=== PATIENT | male | born 1950 | race Caucasian/White ===

== ENCOUNTER → 2016-10-25 | Outpatient (CLI) | payer BC ==
[~2016-10-25] MED LIST: ALBINS INH; ALBINS/ INH; ALBU18002 INH; ALBU1AER9 INH; AMLO-110 PO; AMOX875T PO; AZAT50TA17 PO; BENZ100C7 PO; COLE1TAB4 PO; COLE1TAB5 PO; CYAN100T PO; CZR50 PO; FRS/40 PO; FURO20TA PO; GFNSR600 PO; GUAI1SOL5 PO; HYDR-5688 PO; IMD2 PO; IPRASOL4 INH; LEVO1TAB33 PO; LEVO1TAB35 PO; LEVO88TA PO; LOPE2TAB84 OR; MULT-506 PO; OMEP20CA9 PO; OXGN; PLMIH INH; PRD10 PO; PRD20 PO; PRED10TA PO; PRED50TA PO; SPRIN INH; SYMIN INH; SYMIN160 INH; TIOTCAP INH; TMF75 PO; ZOLP10TA PO
--- NOTE | 2016-10-25 09:36 | DIAGNOSTIC IMAGING REPORT ---
CHEST-PA,LAT AND OBLIQUE VIEWS (4 views) CLINICAL HISTORY: Abnormal chest x-ray COMPARISON STUDY: 07/21/2016 FINDINGS: The chest has an emphysematous configuration. The cardiac and mediastinal contours remain stable. There is no focal pulmonary consolidation. There is no failure. There are no pleural effusions. The previously identified left basilar nodule corresponds to the patient's left nipple. There are minor left basilar atelectatic changes. IMPRESSION: 1. No active disease in the chest. 2. The previously identified 9 mm left basilar opacity corresponds to the patient's left nipple Electronically signed by: Jasmeet Jones M.D. 10/25/2016 9:34 AM Dictated Date/Time: 10/25/2016 9:32 AM
== END | disposition home or self-care (01) ==
LOC: C.RAD1850 09:13
PROVIDERS: ATTEND Internal Medicine Pulmonary Disease
DX: G47.33 Obstructive sleep apnea (adult) (pediatric) (principal)

== ENCOUNTER 2016-12-12 14:30 | Observation (INO) | payer BC ==
[~2016-12-12] VITALS: Ht 185.4 cm; Wt 97.5 kg
[~2016-12-12 14:30] MED LIST changes: -ALBINS/ INH; -ALBU18002 INH; -AMLO-110 PO; -AMOX875T PO; -AZAT50TA17 PO; -BENZ100C7 PO; -COLE1TAB5 PO; -CYAN100T PO; -CZR50 PO; -FRS/40 PO; -FURO20TA PO; -GFNSR600 PO; -GUAI1SOL5 PO; -HYDR-5688 PO; -IMD2 PO; -LEVO1TAB35 PO; -LEVO88TA PO; -MULT-506 PO; -OMEP20CA9 PO; -OXGN; -PLMIH INH; -PRD10 PO; -PRD20 PO; -PRED10TA PO; -SPRIN INH; -SYMIN160 INH; -TMF75 PO; -ZOLP10TA PO
[2016-12-12] MEDS ORDERED: METHYLPREDNISOLONE 125 MG VIAL IV STA (14:44)
[2016-12-12] MEDS ORDERED: SODIUM CHLORIDE 0.9% 1000ML 1,000 ML IV STA ×2 (14:44→15:19)
[2016-12-12] MEDS ORDERED: ALBUT/IPRATROP 3MG/0.5MG NEB 3 ML VIAL INH ONE (14:45)
--- NOTE | 2016-12-12 14:47 | EMERGENCY ROOM VISIT NOTE ---
History Report prepared by Josefa: Olga Juarez Under the Supervision of: Dr. David Malone M.D. First contact with patient: 14:39 Chief Complaint: SHORTNESS OF BREATH Stated Complaint: SOB History of Present Illness The patient is a 66 year old male who presents to the Emergency Room with complaints of worsening shortness of breath over the past two weeks. It is worse with exertion. He notes that he was shoveling the driveway this morning and had to stop a few times to catch his breath, which is unusual for him. He also complains of runny nose and cough. The patient states that he was recently diagnosed with bronchitis. He was seen at the [facility] walk-in [facility] 4 days ago and was put on Levaquin and Prednisone at that time. Since then, his symptoms have continued to worsen. He has been using Spiriva and Symbicort. He had one breathing treatment so far today. He notes that his also currently has bronchitis. Denies loss of consciousness or other complaints. Source of History: patient Onset: 2 weeks ago Position: other (global) Quality: other (short of breath) Timing: worsening Modifying Factors (Worsening): exertion Associated Symptoms: + cough Note: Other symptoms: runny nose Review of Systems See HPI for pertinent positives & negatives. A total of 10 systems reviewed and were otherwise negative. Past Medical & Surgical Medical Problems: (1) Bronchitis (2) Emphysema, unspecified (3) Hypertension (4) Influenza A (5) Pneumonia (6) Pneumonia Family History FH: cancer FH: hypertension Social History Smoking Status: Former Smoker Alcohol Use: none Marital Status: Housing Status: lives with family Occupation Status: retired Current/Historical Medications Scheduled Amlodipine (Norvasc), 5 MG PO DAILY Azathioprine (Imuran), 50 MG PO DAILY Budesonide/Formoterol Fumarate (Symbicort 160-4.5 Mcg/Act), 2 PUFFS INH BID Colestipol Hcl (Colestipol Hcl), 1 GM PO BID Cyanocobalamin (Vitamin B-12), 100 MCG PO DAILY Ipratropium-Albuterol (Duoneb), 3 ML INH QID Levofloxacin (Levaquin), 500 MG PO QPM Levothyroxine Sodium (Synthroid), 88 MCG PO QPM Loperamide HCl (Loperamide HCl), 2 MG PO QAM Multivitamin (Multivitamin), 1 TAB PO DAILY Prednisone (Prednisone), 50 MG PO QPM Tiotropium [place] (Spiriva Handihaler), 1 PUFF INH QAM Zolpidem Tartrate (Ambien), 10 MG PO HS Scheduled PRN Albuterol Sulf (Albuterol Sulfate), 2.5 MG INH Q4H PRN for sob Albuterol Sulfate (Proair Respiclick), 2 PUFFS INH QID PRN for SOB/Wheezing Hydrocodone/Acetaminophen 5MG/325MG ([place] 5MG/325MG), 1 TABLET PO Q4H PRN for Pain Allergies Coded Allergies: No Known Allergies (Unverified , 12/12/16) Physical Exam Vital Signs Date Time Temp Pulse Resp B/P Pulse Ox O2 Delivery O2 Flow Rate FiO2 12/12/16 16:45 83 24 136/74 93 Room Air 12/12/16 15:14 85 16 92 Room Air 12/12/16 15:13 85 12/12/16 15:02 92 Room Air 12/12/16 15:02 86 20 125/74 91 Room Air 12/12/16 14:37 36.9 92 24 154/69 91 Room Air Physical Exam GENERAL: Patient is ill appearing and in mild distress. HEENT: No acute trauma, normocephalic atraumatic, mucous membranes moist, no nasal congestion, no scleral icterus. NECK: No stridor, no adenopathy, no meningismus, trachea is midline. LUNGS: Dyspneic. Diffuse wheezing and crackles all lung [place] with periodic dry cough. HEART: Regular rate and rhythm. No murmurs, rubs, gallops appreciated. ABDOMEN: Soft, nontender, bowel sounds positive, no masses appreciated, no peritonitis. BACK: No midline tenderness, no CVA tenderness EXTREMITIES: Normal motion all extremities, no cyanosis, no edema. NEUROLOGIC: Alert and oriented, no acute motor or sensory deficits, no focal weakness, cranial nerves grossly intact. SKIN: No rash, no jaundice, no diaphoresis. Medical Decision & Procedures ER Provider Diagnostic Interpretation: Radiology results and stated below per my review and radiologist interpretation: CHEST ONE VIEW PORTABLE CLINICAL HISTORY: Chest pain and shortness of breath. COMPARISON STUDY: Chest radiograph October 25, 2016. FINDINGS: Emphysema is noted. There is no pneumothorax or pleural effusion. Cardiac size is normal. There is no evidence of pulmonary edema. No consolidation is identified. IMPRESSION: 1. No acute cardiopulmonary findings. 2. Emphysema. Electronically signed by: Carl Wu M.D. 12/12/2016 3:02 PM Dictated Date/Time: 12/12/2016 3:00 PM Laboratory Results 12/12/16 15:00 Red Blood Count 4.34, Mean Corpuscular Volume 91.9, Mean Corpuscular Hemoglobin 31.8, Mean Corpuscular Hemoglobin Concent 34.6, Mean Platelet Volume 9.7, Neutrophils (%) (Auto) 84.8, Lymphocytes (%) (Auto) 4.7, Monocytes (%) (Auto) 9.4, Eosinophils (%) (Auto) 0.8, Basophils (%) (Auto) 0.1, Neutrophils # (Auto) 8.31, Lymphocytes # (Auto) 0.46, Monocytes # (Auto) 0.92, Eosinophils # (Auto) 0.08, Basophils # (Auto) 0.01 12/12/16 15:00 Test 12/12/16 14:56 12/12/16 15:00 12/12/16 15:03 Influenza Type A Antigen POS for Influ A (NEG) Influenza Type B Antigen Neg for Influ B (NEG) White Blood Count 9.80 K/uL (4.8-10.8) Red Blood Count 4.34 M/uL (4.7-6.1) Hemoglobin 13.8 g/dL (14.0-18.0) Hematocrit 39.9 % (42-52) Mean Corpuscular Volume 91.9 fL (80-100) Mean Corpuscular Hemoglobin 31.8 pg (25-34) Mean Corpuscular Hemoglobin Concent 34.6 g/dl (32-36) Platelet Count 310 K/uL (130-400) Mean Platelet Volume 9.7 fL (7.4-10.4) Neutrophils (%) (Auto) 84.8 % Lymphocytes (%) (Auto) 4.7 % Monocytes (%) (Auto) 9.4 % Eosinophils (%) (Auto) 0.8 % Basophils (%) (Auto) 0.1 % Neutrophils # (Auto) 8.31 K/uL (1.4-6.5) Lymphocytes # (Auto) 0.46 K/uL (1.2-3.4) Monocytes # (Auto) 0.92 K/uL (0.11-0.59) Eosinophils # (Auto) 0.08 K/uL (0-0.5) Basophils # (Auto) 0.01 K/uL (0-0.2) RDW Standard Deviation 49.7 fL (36.4-46.3) RDW Coefficient of Variation 14.7 % (11.5-14.5) Immature Granulocyte % (Auto) 0.2 % Immature Granulocyte # (Auto) 0.02 K/uL (0.00-0.02) Anion Gap 10.0 mmol/L (3-11) Est Creatinine Clear Calc Drug Dose 92.8 ml/min Estimated GFR () 95.1 Estimated GFR (Non- 82.0 BUN/Creatinine Ratio 15.1 (10-20) Calcium Level 8.4 mg/dl (8.5-10.1) Total Creatine Kinase 217 U/L (39-308) Creatine Kinase MB 2.8 ng/ml (0.5-3.6) Creatine Kinase MB Ratio 1.3 (0-3.0) Troponin I < 0.015 ng/ml (0-0.045) Bedside Lactic Acid Venous 2.40 mmol/L (0.90-1.70) Laboratory results as reviewed by me. Medications Administered Medications (Trade) Dose Ordered Sig/Jeffery Route Start Time Stop Time Status Last Admin Dose Admin Sodium Chloride (Nss 1000ml) 1,000 ml @ 999 mls/hr Q1H1M STAT IV 12/12/16 14:44 12/12/16 15:44 DC 12/12/16 15:06 999 MLS/HR Methylprednisolone Sodium Succinate (Solu-Medrol IV) 125 mg NOW STAT IV 12/12/16 14:44 12/12/16 14:45 DC 12/12/16 15:09 125 MG Albuterol/ Ipratropium 12 ml 12 ml ONE ONCE INH 12/12/16 14:45 12/12/16 14:46 DC 12/12/16 15:14 12 ML Sodium Chloride 1,000 ml @ 999 mls/hr Q1H1M STAT IV 12/12/16 15:19 12/12/16 16:19 DC 12/12/16 15:45 999 MLS/HR Doxycycline Hyclate/Dextrose (Vibramycin IV/ D5 100ml) 110 ml @ 50 mls/hr NOW STAT IV 12/12/16 15:27 12/12/16 17:38 12/12/16 15:45 50 MLS/HR Oseltamivir Phosphate (Tamiflu Cap) 75 mg NOW STAT PO 12/12/16 15:54 12/12/16 15:55 DC 12/12/16 16:08 75 MG Potassium Chloride (Klor-Con M10) 20 meq NOW STAT PO 12/12/16 16:08 12/12/16 16:28 DC 12/12/16 16:43 20 MEQ Hydrocodone Bit/ Homatropine Methylb (Hycodan Syrup) 5 ml NOW STAT PO 12/12/16 16:35 12/12/16 16:38 DC 12/12/16 16:44 5 ML ECG Indication: SOB/dyspnea Rate (beats per minute): 76 Rhythm: normal sinus Findings: no acute ischemic change, no ectopy ED Course 1440: The patient was evaluated in room A11. A complete history and physical exam was performed. 1444: Ordered Solu-Medrol 125 mg IV, NSS 1000 ml @ 999 mls/hr IV, DuoNeb 12 ml INH. 1519: Ordered NSS 1000 ml @ 999 mls/hr IV. 1527: Upon reevaluation, the patient states that his breathing is better, although he still has diffuse poor lung sounds. Discussed results and treatment plan with the patient. He verbalized understanding and agreement with the treatment plan. The patient will be evaluated for further management. Ordered Doxycycline Hyclate 100 mg/Dextrose 110 ml @ 50 mls/hr IV. 1540: Dr. Benoit will evaluate the patient for further management. 1554: Ordered Tamiflu Cap 75 mg PO. Medical Decision Differential: Infectious, Reactive Airway Disease, Pneumonia, Pneumothorax, COPD , CHF, ACS, Pulmonary Embolism, MSK, GI, Dissection, amongst other etiologies entertained. Pleasant 66 yr old male with shortness of breath and cough. Quite poor lung exam with decreased Peak flow of 175. Mildly low O2 sats even with sitting still. Shob improved slightly with hour neb but lungs still quite poor. On prednisone for last 4 days (along with Levaquin). No pneumonia on cxr. Lactic acid mildly elevated and I feel this is more hypoxia issue while shoveling snow as opposed to sepsis. Influenza positive. With such poor exam, positive flu, elevated lactic will have hospitalist evaluate. Consults Time Called: 1530 Consulting Physician: Dr. Kaycee Ramirez [facility] [place] Returned Call: 1540 He will evaluate the patient for further management. Impression Primary Impression: Lactic acidosis Additional Impressions: Influenza A Acute bronchitis Failure of outpatient treatment Scribe Attestation The scribe's documentation has been prepared under my direction and personally reviewed by me in its entirety. I confirm that the note above accurately reflects all work, treatment, procedures, and medical decision making performed by me. Departure Information Dispostion Being Evaluated By Hospitalist Referrals Jocelyne Cook M.D. (PCP) Patient Instructions My [facility] Problem Qualifiers Additional Impressions: Acute bronchitis Bronchitis organism: unspecified organism Qualified Codes: J20.9 - Acute bronchitis, unspecified
--- NOTE | 2016-12-12 15:03 | DIAGNOSTIC IMAGING REPORT ---
CHEST ONE VIEW PORTABLE CLINICAL HISTORY: Chest pain and shortness of breath. COMPARISON STUDY: Chest radiograph October 25, 2016. FINDINGS: Emphysema is noted. There is no pneumothorax or pleural effusion. Cardiac size is normal. There is no evidence of pulmonary edema. No consolidation is identified. IMPRESSION: 1. No acute cardiopulmonary findings. 2. Emphysema. Electronically signed by: Carl Wu M.D. 12/12/2016 3:02 PM Dictated Date/Time: 12/12/2016 3:00 PM
[2016-12-12 15:14] VITALS: PULSE 85; O2SAT 92
[2016-12-12 15:19] LABS: BASO % 0.1 %; BASO ABS # 0.01 K/uL (0-0.2); COMPLETE YES; EOS % 0.8 %; HEMATOCRIT 39.9 % (42-52); IG% 0.2 %; LYMPH % 4.7 %; LYMPH ABS # 0.46 K/uL (1.2-3.4); MEAN CELL VOLUME 91.9 fL (80-100); MEAN CORPUSCULAR HEMOGLOBIN 31.8 pg (25-34); MEAN CORPUSCULAR HGB CONC 34.6 g/dl (32-36); MEAN PLATELET VOLUME 9.7 fL (7.4-10.4); MONO % 9.4 %; NEUT % 84.8 %; PLATELET COUNT 310 K/uL (130-400); RED BLOOD COUNT 4.34 M/uL (4.7-6.1)
[2016-12-12] MEDS ORDERED: DOXYCYCLINE IV 100 MG in DEXTROSE 5% 100ML 100 ML IV STA (15:27)
[2016-12-12 15:36] LABS: BLOOD UREA NITROGEN 15 mg/dl (7-18); BUN/CREATININE RATIO 15.1 (10-20); CALCIUM 8.4 mg/dl (8.5-10.1); CARBON DIOXIDE 26 mmol/L (21-32); CHLORIDE 104 mmol/L (98-107); CREATININE 0.96 mg/dl (0.60-1.40); GLUCOSE 103 mg/dl (70-99); POTASSIUM 3.3 mmol/L (3.5-5.1); SODIUM 140 mmol/L (136-145)
[2016-12-12 15:41] LABS: CKMB/CK RATIO 1.3 (0-3.0)
[2016-12-12] MEDS ORDERED: OSELTAMIVIR PHOSPHATE 75 MG CAP PO STA (15:54)
[2016-12-12] MEDS ORDERED: POTASSIUM CHLORIDE 10 MEQ TABCR PO STA (16:08)
[2016-12-12] MEDS ORDERED: ACETAMINOPHEN 325 MG TAB PO PRN (16:15)
--- NOTE | 2016-12-12 16:22 | History and Physical ---
History & Physical Date & Time of Service: Dec 12, 2016 at 16:21 Chief Complaint: SOB Primary Care Physician: Jocelyne Cook M.D. History of Present Illness Source: patient This is a 66 yo M with PMHx of emphysema, Crohn's disease, hypertension, hypothyroidism, who presents with worsening shortness of breath and cough over the last 2 weeks. The patient notes that while shoveling snow this morning he became acutely short of breath, he had to stop several times to catch his breath where he normally doesn't need to. The patient does not require supplemental oxygen at baseline. He denies any chest pain, palpitation, flutter , lightheadedness or dizziness. The patient notes his has been sick with sinusitis and bronchitis. His son was sick 2 weeks ago with an upper respiratory infection diagnosed with bronchitis and sinusitis as well. The patient was seen in an urgent care center last Sunday . There he was prescribed Levaquin 500 mg once daily for the last 5 days (was given a 10 day course) and also prednisone 50 mg 5 days, has completed 4 doses, but notes that his symptoms have actually worsened. O2 sats were 91% with home pulse ox per patient report. The patient is currently receiving a nebulizer treatment. Here in the ED POC lactic acid is 2.4, potassium 3.3, chest x-ray completed showing emphysema, no acute findings indicative of pneumonia. Serology is positive for influenza A Past Medical/Surgical History Medical Problems: (1) Bronchitis Status: Resolved (2) Emphysema, unspecified Status: Resolved (3) Hypertension Status: Chronic (4) Pneumonia Status: Resolved Family History FH: cancer FH: hypertension Social History Smoking Status: Former Smoker ([id number]) Smokeless Tobacco Use: No Drug Use: none Marital Status: Housing status: lives with family Occupational Status: retired Multi-Drug Resistant Organisms History of MDRO: No Allergies Coded Allergies: No Known Allergies (Unverified , 12/12/16) Home Medications Scheduled Amlodipine (Norvasc), 5 MG PO DAILY Azathioprine (Imuran), 50 MG PO DAILY Budesonide/Formoterol Fumarate (Symbicort 160-4.5 Mcg/Act), 2 PUFFS INH BID Colestipol Hcl (Colestipol Hcl), 1 GM PO BID Cyanocobalamin (Vitamin B-12), 100 MCG PO DAILY Ipratropium-Albuterol (Duoneb), 3 ML INH QID Levofloxacin (Levaquin), 500 MG PO QPM Levothyroxine Sodium (Synthroid), 88 MCG PO QPM Loperamide HCl (Loperamide HCl), 2 MG PO QAM Multivitamin (Multivitamin), 1 TAB PO DAILY Prednisone (Prednisone), 50 MG PO QPM Tiotropium [place] (Spiriva Handihaler), 1 PUFF INH QAM Zolpidem Tartrate (Ambien), 10 MG PO HS Scheduled PRN Albuterol Sulf (Albuterol Sulfate), 2.5 MG INH Q4H PRN for sob Albuterol Sulfate (Proair Respiclick), 2 PUFFS INH QID PRN for SOB/Wheezing Hydrocodone/Acetaminophen 5MG/325MG ([place] 5MG/325MG), 1 TABLET PO Q4H PRN for Pain Review of Systems Constitutional: + fatigue, No chills, No fever, No sweats Eyes: No problem reported ENT: + nasal symptoms, + sore throat, No problem reported Respiratory: + cough (nonproductive, ), + dyspnea on exertion, + shortness of breath, No dyspnea at rest, No sputum, No wheezing Cardiovascular: No chest pain, No edema, No palpitations Abdomen: + problem reported (Crohn's disease), No nausea, No pain, No vomiting Genitourinary - Male: No dysuria Neurologic: No balance problems, No numbness/tingling Integumentary: No itch, No rash Physical Exam Vital Signs Date Time Temp Pulse Resp B/P Pulse Ox O2 Delivery O2 Flow Rate FiO2 12/12/16 15:14 85 16 92 Room Air 12/12/16 15:13 85 12/12/16 15:02 92 Room Air 12/12/16 15:02 86 20 125/74 91 Room Air 12/12/16 14:37 36.9 92 24 154/69 91 Room Air General Appearance: WD/WN, no apparent distress, + pertinent finding (actively getting nebulizer treatment) Head: normocephalic, atraumatic Eyes: PERRL, EOMI ENT: hearing grossly normal, pharynx normal, + pertinent finding (mucous membranes moist) Neck: supple, no JVD Respiratory/Chest: chest non-tender, no accessory muscle use, + pertinent finding (coarse breath sounds throughout, + rhales, + cough nonproductive. ) Cardiovascular: regular rate, rhythm, no murmur, normal peripheral pulses Abdomen/GI: normal bowel sounds, non tender, soft, no organomegaly Back: normal inspection Extremities/Musculoskelatal: no calf tenderness, no pedal edema, normal range of motion Neurologic/Psych: alert, normal mood/affect, oriented x 3 Skin: normal color, warm/dry Diagnostics Laboratory Results Results Past 24 Hours Test 12/12/16 14:56 12/12/16 15:00 12/12/16 15:03 Range/Units Influenza Type A Antigen POS for Influ A NEG Influenza Type B Antigen Neg for Influ B NEG White Blood Count 9.80 4.8-10.8 K/uL Red Blood Count 4.34 4.7-6.1 M/uL Hemoglobin 13.8 14.0-18.0 g/dL Hematocrit 39.9 42-52 % Mean Corpuscular Volume 91.9 80-100 fL Mean Corpuscular Hemoglobin 31.8 25-34 pg Mean Corpuscular Hemoglobin Concent 34.6 32-36 g/dl Platelet Count 310 130-400 K/uL Mean Platelet Volume 9.7 7.4-10.4 fL Neutrophils (%) (Auto) 84.8 % Lymphocytes (%) (Auto) 4.7 % Monocytes (%) (Auto) 9.4 % Eosinophils (%) (Auto) 0.8 % Basophils (%) (Auto) 0.1 % Neutrophils # (Auto) 8.31 1.4-6.5 K/uL Lymphocytes # (Auto) 0.46 1.2-3.4 K/uL Monocytes # (Auto) 0.92 0.11-0.59 K/uL Eosinophils # (Auto) 0.08 0-0.5 K/uL Basophils # (Auto) 0.01 0-0.2 K/uL RDW Standard Deviation 49.7 36.4-46.3 fL RDW Coefficient of Variation 14.7 11.5-14.5 % Immature Granulocyte % (Auto) 0.2 % Immature Granulocyte # (Auto) 0.02 0.00-0.02 K/uL Sodium Level 140 136-145 mmol/L Potassium Level 3.3 3.5-5.1 mmol/L Chloride Level 104 98-107 mmol/L Carbon Dioxide Level 26 21-32 mmol/L Anion Gap 10.0 3-11 mmol/L Blood Urea Nitrogen 15 7-18 mg/dl Creatinine 0.96 0.60-1.40 mg/dl Est Creatinine Clear Calc Drug Dose 92.8 ml/min Estimated GFR () 95.1 Estimated GFR (Non- 82.0 BUN/Creatinine Ratio 15.1 10-20 Random Glucose 103 70-99 mg/dl Calcium Level 8.4 8.5-10.1 mg/dl Total Creatine Kinase 217 39-308 U/L Creatine Kinase MB 2.8 0.5-3.6 ng/ml Creatine Kinase MB Ratio 1.3 0-3.0 Troponin I < 0.015 0-0.045 ng/ml Bedside Lactic Acid Venous 2.40 0.90-1.70 mmol/L Microbiology Results 12/12/16 Blood Culture, Received Pending 12/12/16 Blood Culture, Received Pending Diagnostic Radiology CHEST ONE VIEW PORTABLE CLINICAL HISTORY: Chest pain and shortness of breath. COMPARISON STUDY: Chest radiograph October 25, 2016. FINDINGS: Emphysema is noted. There is no pneumothorax or pleural effusion. Cardiac size is normal. There is no evidence of pulmonary edema. No consolidation is identified. IMPRESSION: 1. No acute cardiopulmonary findings. 2. Emphysema. Electronically signed by: Carl Wu M.D. 12/12/2016 3:02 PM Dictated Date/Time: 12/12/2016 3:00 PM The status of this report is Signed. EKG Vent. rate 76 BPM OR interval 148 ms QRS duration 90 ms QT/QTc 374/420 ms P-R-T axes 80 [address] wave changes or signs of ischemia Impression Assessment and Plan This is a 66 yo M with PMHx of emphysema, Crohn's disease, hypertension, hypothyroidism, who presents with worsening shortness of breath and cough over the last 2 weeks found to have influenza A. Influenza A - Admit for observation - Patient received 125 mg Solu-Medrol in the ED: Continue supportive treatment with IV Solu-Medrol 40 mg every 8H, start Tamiflu 75 mg BID, duo nebs Q4H and Q2H prn for shortness of breath, Hycodan cough syrup when necessary , encourage oral hydration, and is likely that the patient can be discharged home tomorrow. 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 Level of Care Med/Surg Resuscitation Status FULL RESUSCITATION VTE Prophylaxis VTE Risk Assessment Done? Y/N: Yes Risk Level: Low Given or contraindicated: T.E.Sarah Stockings, SCD's Assessment and Plan Attending Addendum: I have physically seen and examined this patient, have directed their medical care, have supervised the PA's activity, and agree with the H&P as noted above, with the following changes: The patient is awake, well-developed and adequately nourished, alert and oriented 3, normocephalic and atraumatic, lying in bed and in moderate acute distress during harsh paroxysmal cough. HEENT--PERRL, EOMI, mucous membranes and oropharynx dry. Neck--supple, no JVD or bruits, thyroid normal, trachea midline, no adenopathy. Heart--normal S1 and S2, no extra beats, no murmurs, rubs or gallops. Lungs-- diffuse wheezes and rhonchi bilaterally intermittent respiratory distress, no accessory muscle use. Abdomen--normal bowel sounds and soft, nontender and nondistended, no hernias or masses, no organomegaly. Extremities--no cyanosis, clubbing or edema. There are good distal pulses b/l. Dermatologic--normal skin turgor, normal color, warm and dry, no abnormal lymph nodes, no rash. Neurologic--cranial nerves II through XII grossly intact, motor and sensory examination normal. Rheumatologic--normal range of motion, nontender, muscles and joints. Psychiatric--normal affect. Assessment and Plan: Influenza A--patient will be continued on the Tamiflu 75 mg by mouth twice a day for 5 days begun in the emergency department. Acute bronchitis--the patient received Solu-Medrol 125 mg IV in the emergency department, and this will be continued at 40 mg IV every 8 hours, along with nebulizers every 6 hours while awake and every 2 hours when necessary. We will hold Symbicort, Spiriva, levofloxacin by mouth and prednisone. Hypertension--continue amlodipine 5 mg by mouth daily. Hypothyroidism--continue levothyroxine sodium 88 g by mouth daily. Crohn's disease--continue Imuran 50 mg by mouth daily. Insomnia--continue zolpidem tartrate 10 mg by mouth at bedtime. Vitamin B12 deficiency--continue supplement 100 g by mouth daily.
[2016-12-12] MEDS ORDERED: ALBUT/IPRATROP 3MG/0.5MG NEB 3 ML VIAL INH PRN (16:30)
[2016-12-12] MEDS ORDERED: HYDROCODONE/HOMATROPINE SYRUP 5MG/1.5MG 5ML UDP PO STA (16:35)
[2016-12-12] MEDS ORDERED: HYDROCODONE/HOMATROPINE SYRUP 5MG/1.5MG 5ML UDP PO PRN (16:45)
[2016-12-12] MEDS ORDERED: IV FLUIDS COMPLETED PRN (16:45)
[2016-12-12 18:19] VITALS: BP 155/77; PULSE 83; TEMP 36.8; O2SAT 93; Ht 185.4 cm; Wt 97.5 kg
[2016-12-12 20:00] VITALS: PULSE 83; O2SAT 95
[2016-12-12] MEDS: ALBUT/IPRATROP 3MG/0.5MG NEB 3 ML VIAL INH SCH (20:00)
[2016-12-12] MEDS: BUDESONIDE/FORMOTEROL FUMARATE 160/4.5 60 PUFFS/INHALER INH SCH (21:25)
[2016-12-12] MEDS: ZOLPIDEM TARTRATE 10 MG TAB PO SCH (21:25)
[2016-12-12] MEDS: OSELTAMIVIR PHOSPHATE 75 MG CAP PO SCH (21:26)
[2016-12-12] MEDS: LEVOTHYROXINE 88 MCG TAB PO SCH (21:27)
[2016-12-12] MEDS: COLESTIPOL HCL 1 GM TAB PO SCH (21:34)
[2016-12-12] MEDS: METHYLPREDNISOLONE IV 40 MG in SYRINGE 0 ML IV SCH (21:35)
[2016-12-12] MEDS ORDERED: NURSING DECISION MEDICATION ORDER SCH (23:30)
[2016-12-12] MEDS ORDERED: COUGH DROP (SUGAR FREE) LOZ 24 LOZ/1 BOX PO PRN (23:45)
[2016-12-13] VITALS (10 sets, daily range): BP systolic 125–148; BP diastolic 70–76; PULSE 74–88; TEMP 36.4–36.7; O2SAT 90–95
[2016-12-13 05:45] LABS: COMPLETE YES; HEMATOCRIT 39.5 % (42-52); IG% 0.2 %; LYMPH % 2.3 %; LYMPH ABS # 0.19 K/uL (1.2-3.4); MEAN CELL VOLUME 93.8 fL (80-100); MEAN CORPUSCULAR HEMOGLOBIN 32.1 pg (25-34); MEAN CORPUSCULAR HGB CONC 34.2 g/dl (32-36); MEAN PLATELET VOLUME 9.9 fL (7.4-10.4); MONO % 4.3 %; NEUT % 93.2 %; PLATELET COUNT 283 K/uL (130-400); RED BLOOD COUNT 4.21 M/uL (4.7-6.1); WHITE BLOOD COUNT 8.34 K/uL (4.8-10.8)
[2016-12-13] MEDS: METHYLPREDNISOLONE IV 40 MG in SYRINGE 0 ML IV SCH ×3 (05:55→22:25)
[2016-12-13] MEDS: HYDROCODONE/ACETAMOPHEN 5/325MG TAB PO PRN ×2 (05:56→21:08)
[2016-12-13 06:27] LABS: CALCIUM 8.6 mg/dl (8.5-10.1); POTASSIUM 4.2 mmol/L (3.5-5.1)
[2016-12-13] MEDS: ALBUT/IPRATROP 3MG/0.5MG NEB 3 ML VIAL INH SCH ×4 (07:04→19:51)
[2016-12-13] MEDS: TIOTROPIUM BROMIDE 5 PUFF/90 MCG INH INH SCH (08:22)
[2016-12-13] MEDS: BUDESONIDE/FORMOTEROL FUMARATE 160/4.5 60 PUFFS/INHALER INH SCH ×2 (08:23→20:34)
[2016-12-13] MEDS: LOPERAMIDE HCL 2 MG CAP PO SCH (08:24)
[2016-12-13] MEDS: MULTIVITAMIN TAB PO SCH (08:24)
[2016-12-13] MEDS: AZATHIOPRINE 50 MG TAB PO SCH (08:25)
[2016-12-13] MEDS: AMLODIPINE BESYLATE 5 MG TAB PO SCH (08:26)
[2016-12-13] MEDS: OSELTAMIVIR PHOSPHATE 75 MG CAP PO SCH ×2 (08:26→20:38)
[2016-12-13] MEDS: CYANOCOBALAMIN 100 MCG TAB (VIT B-12) PO SCH (08:27)
--- NOTE | 2016-12-13 08:37 | Progress Note ---
Subjective Date of Service: Dec 13, 2016. Subjective Pt evaluation today including: conversation w/ patient, physical exam, chart review, lab review, review of studies, review of inpatient medication list Still complaining of feeling wheezy, and being "tight" with his breathing. He c/ o RLQ abd pain with coughing, cough is dry. Otherwise, no chest pain, no urinary symptoms, no diarrhea. Problem List Medical Problems: (1) Acute bronchitis Status: Acute (2) Failure of outpatient treatment Status: Acute (3) Lactic acidosis Status: Acute (4) Sepsis Status: Acute Review of Systems All Other Systems: Reviewed and Negative Medications Acetaminophen (Tylenol Tab) 650 mg Q4H PRN PO Last administered on 12/12/16 21:32; Admin Dose 650 MG; Start 12/12/16 at 16:15; Stop 01/11/17 at 16:14 Acetaminophen/ Hydrocodone Bitart ([place] 5/325 Tab) 1 tab Q4H PRN PO Last administered on 12/13/16 05:56; Admin Dose 1 TAB; Start 12/12/16 at 16:15; Stop 12/26/16 at 16:14 Albuterol/ Ipratropium (Duoneb) 3 ml Q2H PRN INH; Start 12/12/16 at 16:30; Stop 01/11/17 at 16:29 Albuterol/ Ipratropium 3 ml 3 ml QIDR INH Last administered on 12/13/16 11:03; Admin Dose 3 ML; Start 12/12/16 at 20:00; Stop 01/11/17 at 19:59 Amlodipine Besylate (Norvasc Tab) 5 mg DAILY PO Last administered on 12/13/16 08:26; Admin Dose 5 MG; Start 12/13/16 at 09:00; Stop 01/12/17 at 08:59 Azathioprine (Imuran Tab) 50 mg DAILY PO Last administered on 12/13/16 08:25; Admin Dose 50 MG; Start 12/13/16 at 09:00; Stop 01/12/17 at 08:59 Budesonide/ Formoterol Fumarate (Symbicort 160/ 4.5 Inh) 2 puffs BID INH Last administered on 12/13/16 08:23; Admin Dose 2 PUFFS; Start 12/12/16 at 21:00; Stop 01/11/17 at 20:59 Colestipol HCl (Colestid Tab) 1 gm BID@1000,2200 PO Last administered on 12:05; Admin Dose 1 GM; Start 12/12/16 at 22:00; Stop 01/11/17 at 21:59 Cyanocobalamin (Vitamin B-12 Tab) 100 mcg DAILY PO Last administered on 08:27; Admin Dose 100 MCG; Start 12/13/16 at 09:00; Stop 01/12/17 at 08:59 Hydrocodone Bit/ Homatropine Methylb (Hycodan Syrup) 5 ml Q4 PRN PO; Start at 16:45; Stop 12/26/16 at 16:44 Levothyroxine Sodium (Synthroid Tab) 88 mcg QPM PO Last administered on 21:27; Admin Dose 88 MCG; Start 12/12/16 at 21:00; Stop 01/11/17 at 20:59 Loperamide HCl (Imodium Cap) 2 mg QAM PO Last administered on 12/13/16 08:24; Admin Dose 2 MG; Start 12/13/16 at 09:00; Stop 01/12/17 at 08:59 Menthol (Nice Mary Ann) 1 mary ann PRN PRN PO; Start 12/12/16 at 23:45; Stop 01/11/17 at 23:44 Methylprednisolone Sodium Succinate/ Syringe (Solu-Medrol IV/ Syringe) 0.64 ml @ 1.5 mls/min Q8 IV Last administered on 12/13/16 13:53; Admin Dose 1.5 MLS/ MIN; Start 12/12/16 at 22:00; Stop 01/11/17 at 21:59 Miscellaneous (Iv Fluids Completed) 1 ea PRN PRN N/A; Start 12/12/16 at 16:45; Stop 12/12/17 at 16:44 Multivitamins (Multivitamin Tab) 1 tab DAILY PO Last administered on 12/13/16 08:24; Admin Dose 1 TAB; Start 12/13/16 at 09:00; Stop 01/12/17 at 08:59 Oseltamivir Phosphate (Tamiflu Cap) 75 mg BID PO Last administered on 12/13/16 08:26; Admin Dose 75 MG; Start 12/12/16 at 21:00; Stop 12/17/16 at 20:59 Tiotropium [place] (Spiriva Handihaler Inhaler) 1 puff QAM INH Last administered on 12/13/16 08:22; Admin Dose 1 PUFF; Start 12/13/16 at 09:00; Stop 01/12/17 at 08:59 Zolpidem Tartrate (Ambien Tab) 10 mg HS PO Last administered on 12/12/16 21:25 ; Admin Dose 10 MG; Start 12/12/16 at 21:00; Stop 01/11/17 at 20:59 Objective Vital Signs Date Time Temp Pulse Resp B/P Pulse Ox O2 Delivery O2 Flow Rate FiO2 12/13/16 07:58 90 Room Air 12/13/16 07:52 36.4 83 18 148/73 90 Room Air 12/13/16 07:23 36.6 79 18 136/76 94 Room Air 12/13/16 07:06 74 16 91 Room Air 12/13/16 07:03 75 16 94 Room Air 12/13/16 00:00 36.7 88 20 125/73 92 Room Air 12/13/16 00:00 Room Air 12/12/16 21:00 Room Air 12/12/16 20:00 83 16 95 Room Air 12/12/16 18:19 36.8 83 22 155/77 93 Room Air 12/12/16 18:06 88 20 148/70 94 12/12/16 16:45 83 24 136/74 93 Room Air 12/12/16 15:14 85 16 92 Room Air 12/12/16 15:13 85 12/12/16 15:02 92 Room Air 12/12/16 15:02 86 20 125/74 91 Room Air 12/12/16 14:37 36.9 92 24 154/69 91 Room Air Physical Exam Comments: nad, aox3 eomi, perrl, anicteric s1 s2 rrr, no murmurs appreciated ctab no w/r/r abd soft nt/nd +BS no LE edema cn 2-12 grossly intact without facial drooping Laboratory Results Last 24 Hours Test 12/12/16 14:56 12/12/16 15:00 12/12/16 15:03 12/13/16 05:00 Influenza Type A Antigen POS for Influ A Influenza Type B Antigen Neg for Influ B White Blood Count 9.80 K/uL 8.34 K/uL Red Blood Count 4.34 M/uL 4.21 M/uL Hemoglobin 13.8 g/dL 13.5 g/dL Hematocrit 39.9 % 39.5 % Mean Corpuscular Volume 91.9 fL 93.8 fL Mean Corpuscular Hemoglobin 31.8 pg 32.1 pg Mean Corpuscular Hemoglobin Concent 34.6 g/dl 34.2 g/dl Platelet Count 310 K/uL 283 K/uL Mean Platelet Volume 9.7 fL 9.9 fL Neutrophils (%) (Auto) 84.8 % 93.2 % Lymphocytes (%) (Auto) 4.7 % 2.3 % Monocytes (%) (Auto) 9.4 % 4.3 % Eosinophils (%) (Auto) 0.8 % 0.0 % Basophils (%) (Auto) 0.1 % 0.0 % Neutrophils # (Auto) 8.31 K/uL 7.77 K/uL Lymphocytes # (Auto) 0.46 K/uL 0.19 K/uL Monocytes # (Auto) 0.92 K/uL 0.36 K/uL Eosinophils # (Auto) 0.08 K/uL 0.00 K/uL Basophils # (Auto) 0.01 K/uL 0.00 K/uL RDW Standard Deviation 49.7 fL 49.2 fL RDW Coefficient of Variation 14.7 % 14.6 % Immature Granulocyte % (Auto) 0.2 % 0.2 % Immature Granulocyte # (Auto) 0.02 K/uL 0.02 K/uL Sodium Level 140 mmol/L 138 mmol/L Potassium Level 3.3 mmol/L 4.2 mmol/L Chloride Level 104 mmol/L 103 mmol/L Carbon Dioxide Level 26 mmol/L 25 mmol/L Anion Gap 10.0 mmol/L 10.0 mmol/L Blood Urea Nitrogen 15 mg/dl 14 mg/dl Creatinine 0.96 mg/dl 1.00 mg/dl Est Creatinine Clear Calc Drug Dose 92.8 ml/min 89.3 ml/min Estimated GFR () 95.1 90.5 Estimated GFR (Non- 82.0 78.1 BUN/Creatinine Ratio 15.1 14.0 Random Glucose 103 mg/dl 124 mg/dl Calcium Level 8.4 mg/dl 8.6 mg/dl Total Creatine Kinase 217 U/L Creatine Kinase MB 2.8 ng/ml Creatine Kinase MB Ratio 1.3 Troponin I < 0.015 ng/ml Bedside Lactic Acid Venous 2.40 mmol/L Assessment and Plan 1. SOb - 2/2 acute emphysematous exacerbation 2/2 Flu A - cont solumedrol 40mg IV 8h - cont albuterol QID with prn in between 2. Flu A - cont tamiflu for 7 days, day 2 - nebs as ordered 3. HTN - controlled home amlodipine 4. hypothyroid - cont levothyroxine 5. Crohn's - no s/s acute flare 6. dvt ppx
[2016-12-13] MEDS: COLESTIPOL HCL 1 GM TAB PO SCH ×2 (12:05→22:25)
[2016-12-13] MEDS ORDERED: ENOXAPARIN 30 MG/0.3 ML SYR SQ ONE (16:00)
[2016-12-13 16:58] LABS: PROTHROMBIN TIME (PATIENT) 10.9 SECONDS (9.0-12.0)
[2016-12-13] MEDS ORDERED: TMF75 PO (18:03)
[2016-12-13] MEDS ORDERED: PRD20 PO ×2 (18:03→18:13)
[2016-12-13] MEDS: ZOLPIDEM TARTRATE 10 MG TAB PO SCH (20:36)
[2016-12-13] MEDS: LEVOTHYROXINE 88 MCG TAB PO SCH (20:37)
[2016-12-14] VITALS (8 sets, daily range): BP systolic 112–151; BP diastolic 57–82; PULSE 73–85; TEMP 36.3–36.9; O2SAT 92–95
[2016-12-14] MEDS: METHYLPREDNISOLONE IV 40 MG in SYRINGE 0 ML IV SCH ×2 (05:47→19:05)
[2016-12-14] MEDS: ALBUT/IPRATROP 3MG/0.5MG NEB 3 ML VIAL INH SCH ×4 (07:29→20:15)
[2016-12-14] MEDS: TIOTROPIUM BROMIDE 5 PUFF/90 MCG INH INH SCH (08:41)
[2016-12-14] MEDS: BUDESONIDE/FORMOTEROL FUMARATE 160/4.5 60 PUFFS/INHALER INH SCH ×2 (08:42→21:22)
[2016-12-14] MEDS: LOPERAMIDE HCL 2 MG CAP PO SCH (08:43)
[2016-12-14] MEDS: OSELTAMIVIR PHOSPHATE 75 MG CAP PO SCH ×2 (08:43→21:23)
[2016-12-14] MEDS: AZATHIOPRINE 50 MG TAB PO SCH (08:43)
[2016-12-14] MEDS: CYANOCOBALAMIN 100 MCG TAB (VIT B-12) PO SCH (08:44)
[2016-12-14] MEDS: MULTIVITAMIN TAB PO SCH (08:44)
[2016-12-14] MEDS: AMLODIPINE BESYLATE 5 MG TAB PO SCH (08:44)
--- NOTE | 2016-12-14 09:07 | Progress Note ---
Subjective Date of Service: Dec 14, 2016. Subjective Pt evaluation today including: conversation w/ patient, physical exam, lab review, review of studies, review of inpatient medication list Feeling slightly better than yesterday but still reports dyspnea with ambulation. Increasing coughing with some soreness in his throat improved with lozenges. No chest pain, no abd pain, tolerating diet. No diarrhea. Problem List Medical Problems: (1) Acute bronchitis Status: Acute (2) Failure of outpatient treatment Status: Acute (3) Lactic acidosis Status: Acute (4) Sepsis Status: Acute Review of Systems All Other Systems: Reviewed and Negative Medications Acetaminophen (Tylenol Tab) 650 mg Q4H PRN PO Last administered on 12/12/16 21:32; Admin Dose 650 MG; Start 12/12/16 at 16:15; Stop 01/11/17 at 16:14 Acetaminophen/ Hydrocodone Bitart ([place] 5/325 Tab) 1 tab Q4H PRN PO Last administered on 12/13/16 21:08; Admin Dose 1 TAB; Start 12/12/16 at 16:15; Stop 12/26/16 at 16:14 Albuterol/ Ipratropium (Duoneb) 3 ml Q2H PRN INH; Start 12/12/16 at 16:30; Stop 01/11/17 at 16:29 Albuterol/ Ipratropium (Duoneb) 3 ml QIDR INH Last administered on 12/14/16 11: 38; Admin Dose 3 ML; Start 12/12/16 at 20:00; Stop 01/11/17 at 19:59 Amlodipine Besylate (Norvasc Tab) 5 mg DAILY PO Last administered on 12/14/16 08:44; Admin Dose 5 MG; Start 12/13/16 at 09:00; Stop 01/12/17 at 08:59 Azathioprine (Imuran Tab) 50 mg DAILY PO Last administered on 12/14/16 08:43; Admin Dose 50 MG; Start 12/13/16 at 09:00; Stop 01/12/17 at 08:59 Budesonide/ Formoterol Fumarate (Symbicort 160/ 4.5 Inh) 2 puffs BID INH Last administered on 12/14/16 08:42; Admin Dose 2 PUFFS; Start 12/12/16 at 21:00; Stop 01/11/17 at 20:59 Colestipol HCl (Colestid Tab) 1 gm BID@1000,2200 PO Last administered on 11:32; Admin Dose 1 GM; Start 12/12/16 at 22:00; Stop 01/11/17 at 21:59 Cyanocobalamin (Vitamin B-12 Tab) 100 mcg DAILY PO Last administered on 08:44; Admin Dose 100 MCG; Start 12/13/16 at 09:00; Stop 01/12/17 at 08:59 Enoxaparin Sodium 30 mg 30 mg QAM SQ; Start 12/14/16 at 11:00; Stop 01/13/17 at 10:59 Hydrocodone Bit/ Homatropine Methylb (Hycodan Syrup) 5 ml Q4 PRN PO Last administered on 12/13/16 20:37; Admin Dose 5 ML; Start 12/12/16 at 16:45; Stop 12/26/16 at 16:44 Levothyroxine Sodium (Synthroid Tab) 88 mcg QPM PO Last administered on 20:37; Admin Dose 88 MCG; Start 12/12/16 at 21:00; Stop 01/11/17 at 20:59 Loperamide HCl (Imodium Cap) 2 mg QAM PO Last administered on 12/14/16 08:43; Admin Dose 2 MG; Start 12/13/16 at 09:00; Stop 01/12/17 at 08:59 Menthol (Nice Mary Ann) 1 mary ann PRN PRN PO; Start 12/12/16 at 23:45; Stop 01/11/17 at 23:44 Methylprednisolone Sodium Succinate/ Syringe (Solu-Medrol IV/ Syringe) 0.64 ml @ 1.5 mls/min Q12H IV; Start 12/14/16 at 18:00; Stop 01/13/17 at 17:59 Miscellaneous (Iv Fluids Completed) 1 ea PRN PRN N/A; Start 12/12/16 at 16:45; Stop 12/12/17 at 16:44 Multivitamins (Multivitamin Tab) 1 tab DAILY PO Last administered on 12/14/16 08:44; Admin Dose 1 TAB; Start 12/13/16 at 09:00; Stop 01/12/17 at 08:59 Oseltamivir Phosphate (Tamiflu Cap) 75 mg BID PO Last administered on 12/14/16 08:43; Admin Dose 75 MG; Start 12/12/16 at 21:00; Stop 12/17/16 at 20:59 Tiotropium [place] (Spiriva Handihaler Inhaler) 1 puff QAM INH Last administered on 12/14/16 08:41; Admin Dose 1 PUFF; Start 12/13/16 at 09:00; Stop 01/12/17 at 08:59 Zolpidem Tartrate (Ambien Tab) 10 mg HS PO Last administered on 12/13/16 20:36 ; Admin Dose 10 MG; Start 12/12/16 at 21:00; Stop 01/11/17 at 20:59 Objective Vital Signs Date Time Temp Pulse Resp B/P Pulse Ox O2 Delivery O2 Flow Rate FiO2 12/14/16 07:29 85 16 93 Room Air 12/14/16 07:24 36.6 73 18 146/82 92 Room Air 12/14/16 00:00 36.9 85 20 112/57 93 Room Air 12/14/16 00:00 Room Air 12/13/16 19:52 85 16 93 Room Air 12/13/16 16:00 Room Air 12/13/16 15:39 78 16 92 Room Air 12/13/16 14:43 36.5 85 18 137/70 92 Room Air 12/13/16 11:03 74 16 95 Room Air Physical Exam Comments: nad, aox3, coherent and fluent speech eomi, perrl, anicteric s1 s2 rrr, no murmurs appreciated scattered wheezing, diminished breath sounds, no rales abd soft nt/nd +BS no CVA tend no LE edema cn 2-12 grossly intact without facial drooping Laboratory Results Last 24 Hours Test 12/13/16 16:30 Prothrombin Time 10.9 SECONDS Prothromb Time International Ratio 1.0 Activated Partial Thromboplast Time 26.3 SECONDS Partial Thromboplastin Ratio 1.0 Assessment and Plan 1. SOb - 2/2 acute COPD/emphysematous exacerbation 2/2 Flu A - cont solumedrol 40mg IV to taper down to q12h - cont albuterol QID with prn in between 2. Flu A - cont tamiflu for 7 days, day 3 - nebs as ordered 3. HTN - controlled on home amlodipine 4. hypothyroid - cont levothyroxine 5. Crohn's - no s/s acute flare - cont azathioprine - cont loperamide 6. dvt ppx
[2016-12-14] MEDS: COLESTIPOL HCL 1 GM TAB PO SCH ×2 (11:32→22:22)
[2016-12-14] MEDS: ENOXAPARIN 30 MG/0.3 ML SYR SQ SCH (11:33)
[2016-12-14] MEDS: LEVOTHYROXINE 88 MCG TAB PO SCH (21:23)
[2016-12-14] MEDS: ZOLPIDEM TARTRATE 10 MG TAB PO SCH (21:24)
[2016-12-15] MEDS: METHYLPREDNISOLONE IV 40 MG in SYRINGE 0 ML IV SCH (05:46)
[2016-12-15 07:12] VITALS: PULSE 83; O2SAT 94
[2016-12-15] MEDS: ALBUT/IPRATROP 3MG/0.5MG NEB 3 ML VIAL INH SCH (07:12)
--- NOTE | 2016-12-15 07:22 | Discharge Instructions ---
Discharge Instructions Date of Service Dec 15, 2016. Admission Reason for Admission: Influenza A Discharge Discharge Diagnosis / Problem: Flu A, COPD exacerbation Discharge Goals Goal(s): Improve disease control Activity Recommendations Activity Limitations: resume your previous activity . Current Hospital Diet Patient's current hospital diet: Regular Diet Discharge Diet Recommended Diet: AHA Diet (Heart Healthy) Pending Studies Studies pending at discharge: no Medical Emergencies . Who to Call and When: Medical Emergencies: If at any time you feel your situation is an emergency, please call 911 immediately. . Non-Emergent Contact Non-Emergency issues call your: Primary Care Provider . . "Provider Documentation" section prepared by Michaelle Roque. VTE Core Measure Inpt VTE Proph given/why not?: Sergio Mcbride, SCD's
[2016-12-15 07:29] VITALS: BP 146/80; PULSE 76; TEMP 36.7; O2SAT 96
[2016-12-15 07:58] VITALS: O2SAT 96
[2016-12-15] MEDS: AMLODIPINE BESYLATE 5 MG TAB PO SCH (08:16)
[2016-12-15] MEDS: LOPERAMIDE HCL 2 MG CAP PO SCH (08:16)
[2016-12-15] MEDS: BUDESONIDE/FORMOTEROL FUMARATE 160/4.5 60 PUFFS/INHALER INH SCH (08:16)
[2016-12-15] MEDS: AZATHIOPRINE 50 MG TAB PO SCH (08:16)
[2016-12-15] MEDS: OSELTAMIVIR PHOSPHATE 75 MG CAP PO SCH (08:17)
[2016-12-15] MEDS: MULTIVITAMIN TAB PO SCH (08:17)
[2016-12-15] MEDS: CYANOCOBALAMIN 100 MCG TAB (VIT B-12) PO SCH (08:17)
[2016-12-15] MEDS: TIOTROPIUM BROMIDE 5 PUFF/90 MCG INH INH SCH (08:18)
[2016-12-15] MEDS: ENOXAPARIN 30 MG/0.3 ML SYR SQ SCH (08:20)
--- NOTE | 2016-12-15 09:44 | Discharge Summary ---
Discharge Summary Date of Service Dec 15, 2016. Discharge Summary Admission Date: Dec 12, 2016 at 16:20 Discharge Date: Dec 15, 2016 Discharge Disposition: Home Principal Diagnosis: Flu A with COPD exacerbation Medication Reconciliation New Medications: Prednisone (Prednisone) 20 Mg Tab 40 MG PO BID, #10 take 40 mg two times daily for 1 day then take 40 mg once daily for 1 days then take 20 mg once daily for 2 days then take 10mg one daily for 2 days then stop Oseltamivir Phosphate (Tamiflu) 75 Mg Cap 75 MG PO BID for 5 Days, #10 CAP Continued Medications: Albuterol Sulf (Albuterol Sulfate) 2.5 Mg/3 Ml Nebu 2.5 MG INH Q4H PRN for sob, #30 Albuterol Sulfate (Proair Respiclick) 108 Mcg/Act Aer 2 PUFFS INH QID PRN for SOB/Wheezing Amlodipine (Norvasc) 5 Mg Tab 5 MG PO DAILY, TAB Azathioprine (Imuran) 50 Mg Tab 50 MG PO DAILY, TAB Budesonide/Formoterol Fumarate (Symbicort 160-4.5 Mcg/Act) 60 Puffs/Inhaler Aero 2 PUFFS INH BID, #1 Colestipol Hcl (Colestipol Hcl) 1 Gm Tab 1 GM PO BID Cyanocobalamin (Vitamin B-12) 100 Mcg Tab 100 MCG PO DAILY, TAB Hydrocodone/Acetaminophen 5MG/325MG ([place] 5MG/325MG) Tab 1 TABLET PO Q4H PRN for Pain, TAB PRN PAIN Ipratropium-Albuterol (Duoneb) 3 Ml Nebu 3 ML INH QID, #120 Levothyroxine Sodium (Synthroid) 88 Mcg Tab 88 MCG PO QPM, #90 Loperamide HCl (Loperamide HCl) 2 Mg Cap 2 MG PO QAM Multivitamin (Multivitamin) Tab 1 TAB PO DAILY, TAB Tiotropium [place] (Spiriva Handihaler) 5 Puff/90 Mcg Aerp 1 PUFF INH QAM Zolpidem Tartrate (Ambien) 10 Mg Tab 10 MG PO HS, TAB Discontinued Medications: Levofloxacin (Levaquin) 500 Mg Tab 500 MG PO QPM, #10 Prednisone (Prednisone) 50 Mg Tab 50 MG PO QPM, #5 Hospital Course This is a 66 yo M with PMHx of emphysema, Crohn's disease, hypertension, hypothyroidism, who presents with worsening shortness of breath and cough over the last 2 weeks. The patient notes that while shoveling snow this morning he became acutely short of breath, he had to stop several times to catch his breath where he normally doesn't need to. The patient does not require supplemental oxygen at baseline. He denies any chest pain, palpitation, flutter , lightheadedness or dizziness. The patient notes his has been sick with sinusitis and bronchitis. His son was sick 2 weeks ago with an upper respiratory infection diagnosed with bronchitis and sinusitis as well. The patient was seen in an urgent care center last Sunday . There he was prescribed Levaquin 500 mg once daily for the last 5 days (was given a 10 day course) and also prednisone 50 mg 5 days, has completed 4 doses, but notes that his symptoms have actually worsened. O2 sats were 91% with home pulse ox per patient report. The patient is currently receiving a nebulizer treatment. Here in the ED POC lactic acid is 2.4, potassium 3.3, chest x-ray completed showing emphysema, no acute findings indicative of pneumonia. Serology is positive for influenza A On this admission, patient was started on Tamiflu and will continue it to finish course of 7 days. Patient's copd was treated with IV steroids and will be tapered gradually. He was also placed on around the clock neb treatment and as needed. Vital Signs Date Time Temp Pulse Resp B/P Pulse Ox O2 Delivery O2 Flow Rate FiO2 12/15/16 08:00 Room Air 12/15/16 07:58 96 12/15/16 07:29 36.7 76 20 146/80 On day of discharge, patient felt much better. Breathing improved. Dyspnea on exertion also improved. NAD AOX3 eomi, perrl, anicteric s1 s2 rrr, no murmurs appreciated rhonchi scattered with diminished lung sounds but improved air exchange no LE edema abd soft nt/nd +BS 1. SOb - 2/2 acute COPD/emphysematous exacerbation 2/2 Flu A - cont prednisone 40mg BID and to taper as ordered/instructions on script - cont combivent TID to QID with prn in between 2. Flu A - cont tamiflu for 7 days, day 4 - nebs as ordered 3. HTN - controlled on home amlodipine 4. hypothyroid - cont levothyroxine 5. Crohn's - no s/s acute flare - cont azathioprine - cont loperamide 6. dvt ppx Total Time Spent: Less than 30 minutes This includes examination of the patient, discharge planning, medication reconciliation, and communication with other providers. Discharge Instructions Please refer to the electronic Patient Visit Report (Discharge Instructions) for additional information. Additional Copies To Jocelyne Cook M.D.
[2016-12-15 09:59] VITALS: BP 146/80; PULSE 76; TEMP 36.7; O2SAT 96
[2016-12-15] MEDS: COLESTIPOL HCL 1 GM TAB PO SCH (10:03)
[2017-02-10] MEDS ORDERED: ALBU18002 INH (15:23)
[2017-02-10] MEDS ORDERED: SPRIN INH (15:23)
[2017-02-10] MEDS ORDERED: COLE1TAB5 PO (15:23)
[2017-02-10] MEDS ORDERED: IMD2 PO (15:23)
[2017-02-16] MEDS ORDERED: PRD10 PO (13:52)
[2017-02-16] MEDS ORDERED: FURO20TA PO (13:52)
[2017-02-16] MEDS ORDERED: AMOX875T PO (13:52)
[2017-02-16] MEDS ORDERED: GUAI1SOL5 PO (13:54)
[2017-02-18] MEDS ORDERED: FURO20TA PO (12:25)
[2017-03-23] MEDS ORDERED: GFNSR600 PO (14:40)
[2017-03-23] MEDS ORDERED: BENZ100C7 PO (14:40)
[2017-03-23] MEDS ORDERED: PRED10TA PO (14:40)
[2017-03-23] MEDS ORDERED: PLMIH INH (14:40)
[2017-03-23] MEDS ORDERED: LEVO1TAB35 PO (14:41)
== END 2016-12-15 10:19 | disposition home or self-care (01) ==
LOC: ENRESERVTM → ENRESERVDT → CANRESERV → C.EDB 14:31 → UNDOADMOB 16:20 → C.MS2W 16:20
PROVIDERS: ADMIT Hospitalist; ATTEND Internal Medicine
DX: J11.1 Influenza due to unidentified influenza virus with other respiratory manifestations (principal); J44.1 Chronic obstructive pulmonary disease with (acute) exacerbation; I10 Essential (primary) hypertension; E03.9 Hypothyroidism, unspecified; K50.90 Crohn's disease, unspecified, without complications; J43.9 Emphysema, unspecified; Z82.49 Family history of ischemic heart disease and other diseases of the circulatory system; Z87.891 Personal history of nicotine dependence

== ENCOUNTER → 2017-01-23 | Outpatient (CLI) | payer BC ==
[~2017-01-23] MED LIST changes: +ALBINS/ INH; +ALBU18002 INH; -ALBU1AER9 INH; +AMLO-110 PO; +AMOX875T PO; +AZAT50TA17 PO; +B-CO1CAP17 PO; +BENZ100C7 PO; +BENZ100C84 PO; +CHOL1000 PO; -COLE1TAB4 PO; +COLE1TAB5 PO; +CYAN100T PO; +CZR50 PO; +DORN1SOL INH; +FRS/40 PO; +FURO20TA PO; +GFNSR600 PO; +GUAI1SOL5 PO; +GUAISYP8 PO; +HOMETAB PO; +HYDR-5688 PO; +IMD2 PO; +LEVO-366 PO; -LEVO1TAB33 PO; +LEVO1TAB35 PO; +LEVO88TA PO; -LOPE2TAB84 OR; +MESA0.37 PO; +MULT-506 PO; +NYSS/ PO; +OMEP20CA9 PO; +OXGN; +PLMIH INH; +PRD10 PO; +PRD20 PO; +PRED10TA PO; -PRED50TA PO; +SPRIN INH; +SYMIN160 INH; +TADA10TA PO; -TIOTCAP INH; +TMF75 PO; +ZOLP10TA PO
--- NOTE | 2017-01-23 15:40 | DIAGNOSTIC IMAGING REPORT ---
CHEST 2 VIEWS ROUTINE CLINICAL HISTORY: COPD, shortness of breath, cough. COMPARISON STUDY: 12/12/2016 FINDINGS: The chest has an emphysematous configuration. The heart is normal in size. There is no failure. There is no focal pulmonary consolidation. There is mild basilar interstitial thickening.[ IMPRESSION: Emphysema. Mild basilar interstitial thickening. No acute findings. Electronically signed by: Jasmeet Jones M.D. 01/23/2017 3:38 PM Dictated Date/Time: 01/23/2017 3:37 PM
== END | disposition home or self-care (01) ==
LOC: C.RAD1850 15:26
PROVIDERS: ATTEND Family Medicine
DX: J44.1 Chronic obstructive pulmonary disease with (acute) exacerbation (principal)

== ENCOUNTER → 2017-01-29 | Outpatient (CLI) | payer BC | END | disposition home or self-care (01) | LOC: C.LAB1850 14:37 | PROVIDERS: ATTEND Physician Assistant Medical | DX: J44.9 Chronic obstructive pulmonary disease, unspecified (principal) ==

== ENCOUNTER → 2017-01-29 | Outpatient (CLI) | payer BC ==
--- NOTE | 2017-01-29 07:18 | DIAGNOSTIC IMAGING REPORT ---
CT OF THE CHEST WITHOUT IV CONTRAST CLINICAL HISTORY: COUGH,COPD COMPARISON STUDY: 07/11/2011 , chest x-ray dated 01/23/2017 CT DOSE: 574.83 mGy.cm TECHNIQUE: CT of the thorax was performed from the thoracic inlet to the lung bases. Images are reviewed in the axial, sagittal, and coronal planes. IV contrast was not administered for this examination. FINDINGS: Thyroid: Imaged portions of the thyroid gland are normal in appearance. Thoracic aorta: The thoracic aorta is normal in course and caliber, noting standard 3 vessel arch anatomy. Heart: There are minor coronary artery calcifications. There is a trace pericardial effusion. Lungs and pleural spaces: There are no pleural effusions. There is pulmonary emphysema. There are right lower lobe bronchiectatic changes with right lower lobe dependent atelectasis/consolidation. Mediastinum: There is no mediastinal lymphadenopathy. Alyse: There is no evidence of pathologic hilar adenopathy given the limitations of a noncontrast study Axilla: Clear. Upper abdomen: Partially visualized upper abdominal viscera is within normal limits. Skeletal structures: There are no lytic or blastic osseous lesions. IMPRESSION: 1. Emphysema 2. No evidence of pathologic adenopathy 3. Mild cylindrical bronchiectasis, most pronounced within the right lower lobe. Dependent right lower lobe atelectasis/consolidation. Electronically signed by: Jasmeet Jones M.D. 01/29/2017 7:16 AM Dictated Date/Time: 01/29/2017 7:12 AM
== END | disposition home or self-care (01) ==
LOC: C.CTS 06:48
PROVIDERS: ATTEND Family Medicine
DX: J44.1 Chronic obstructive pulmonary disease with (acute) exacerbation (principal); J43.9 Emphysema, unspecified

== ENCOUNTER → 2017-01-30 | Outpatient (CLI) | payer BC | END | disposition home or self-care (01) | LOC: C.LAB1850 10:41 | PROVIDERS: ATTEND Physician Assistant Medical | DX: J44.1 Chronic obstructive pulmonary disease with (acute) exacerbation (principal) ==

== ENCOUNTER 2017-02-10 17:47 | Inpatient (IN) | payer BC, OTHER ==
[~2017-02-10] VITALS: Ht 185.4 cm; Wt 94.9 kg
[~2017-02-10 17:47] MED LIST changes: -ALBINS/ INH; -AMLO-110 PO; -AMOX875T PO; -AZAT50TA17 PO; -B-CO1CAP17 PO; -BENZ100C7 PO; -BENZ100C84 PO; -CHOL1000 PO; -CYAN100T PO; -CZR50 PO; -DORN1SOL INH; -FRS/40 PO; -FURO20TA PO; -GFNSR600 PO; -GUAI1SOL5 PO; -GUAISYP8 PO; -HOMETAB PO; -HYDR-5688 PO; -LEVO-366 PO; -LEVO1TAB35 PO; -LEVO88TA PO; -MESA0.37 PO; -MULT-506 PO; -NYSS/ PO; -OMEP20CA9 PO; -OXGN; -PLMIH INH; -PRD10 PO; -PRED10TA PO; -SYMIN160 INH; -TADA10TA PO; -ZOLP10TA PO
[2017-02-10] MEDS ORDERED: MAGNESIUM SULFATE 1GM / D5W 1 GM BAG IV STA (18:04)
[2017-02-10] MEDS ORDERED: METHYLPREDNISOLONE 125 MG VIAL IV STA (18:04)
[2017-02-10 18:15] VITALS: PULSE 107; O2SAT 92
[2017-02-10 18:15] LABS: BASO % 0.1 %; BASO ABS # 0.01 K/uL (0-0.2); COMPLETE YES; EOS % 0.3 %; HEMATOCRIT 48.6 % (42-52); IG% 0.2 %; LYMPH % 1.4 %; LYMPH ABS # 0.21 K/uL (1.2-3.4); MEAN CELL VOLUME 96.4 fL (80-100); MEAN CORPUSCULAR HEMOGLOBIN 31.9 pg (25-34); MEAN CORPUSCULAR HGB CONC 33.1 g/dl (32-36); MEAN PLATELET VOLUME 10.5 fL (7.4-10.4); PLATELET COUNT 173 K/uL (130-400); RED BLOOD COUNT 5.04 M/uL (4.7-6.1)
[2017-02-10] MEDS ORDERED: ALBUT/IPRATROP 3MG/0.5MG NEB 3 ML VIAL INH ONE (18:15)
[2017-02-10] MEDS ORDERED: PIPERACILLIN/TAZOBACTAM 4.5 GM/100ML D5W IV STA (18:17)
[2017-02-10] MEDS ORDERED: VANCOMYCIN INJ 1,000 MG in SODIUM CHLORIDE 0.9% 250ML 250 ML IV STA (18:17)
[2017-02-10] MEDS ORDERED: CYAN100T PO (18:17)
[2017-02-10] MEDS ORDERED: SODIUM CHLORIDE 0.9% 1000ML 1,000 ML IV STA (18:18)
[2017-02-10] MEDS ORDERED: ZOLP10TA PO (18:18)
[2017-02-10] MEDS ORDERED: AMLO-110 PO (18:19)
[2017-02-10] MEDS ORDERED: AZAT50TA17 PO (18:23)
--- NOTE | 2017-02-10 18:25 | EMERGENCY ROOM VISIT NOTE ---
History Report prepared by Josefa: Hugh Hyman Under the Supervision of: Dr. Real Wu M.D. First contact with patient: 18:00 Chief Complaint: FLU LIKE SX Stated Complaint: SOB, BLOOD PRESSURE HIGH, CHILLS History of Present Illness The patient is a 66 year old male who presents to the Emergency Room with complaints of worsening difficulty breathing over the past few weeks. The patient has a history of COPD. He has inhalers at home that he has been using and he has been on steroids in the past. However, he is not currently on steroids. The patient also complains of chills. Source of History: patient Onset: past few weeks Position: other (global) Timing: worsening Associated Symptoms: + chills Review of Systems See HPI for pertinent positives & negatives. A total of 10 systems reviewed and were otherwise negative. 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 Family History FH: cancer FH: hypertension Social History Smoking Status: Former Smoker Alcohol Use: none Drug Use: none Marital Status: Housing Status: lives with family Occupation Status: retired Current/Historical Medications Scheduled Amlodipine (Norvasc), 5 MG PO DAILY Azathioprine (Imuran), 50 MG PO DAILY Budesonide/Formoterol Fumarate (Symbicort 160/4.5 Inhaler), 2 PUFF INH BID Colestipol Hcl (Colestipol Hcl), 1 GM PO BID Cyanocobalamin (Vitamin B-12), 100 MCG PO DAILY Ipratropium-Albuterol (Duoneb), 1 TREATMENT INH TID Levothyroxine Sodium (Synthroid), 88 MCG PO QPM Loperamide HCl (Loperamide HCl), 2 MG PO BID Multivitamin (Multivitamin), 1 TAB PO DAILY Omeprazole (Prilosec), 20 MG PO QAM Prednisone (Prednisone), 40 MG PO BID Tiotropium [place] (Spiriva Handihaler), 1 PUFF INH QAM Zolpidem Tartrate (Ambien), 10 MG PO HS Scheduled PRN Albuterol Sulf (Proventil 0.083% 2.5MG/3ML), 2.5 MG INH Q4 PRN for Shortness of Breath Albuterol Sulfate (Proair Respiclick), 2 PUFFS INH QID PRN for SOB/Wheezing Hydrocodone/Acetaminophen 5MG/325MG ([place] 5MG/325MG), 1 TABLET PO Q4H PRN for Pain Allergies Coded Allergies: No Known Allergies (Unverified , 12/12/16) Physical Exam Vital Signs Date Time Temp Pulse Resp B/P Pulse Ox O2 Delivery O2 Flow Rate FiO2 02/10/17 19:32 117 23 92 02/10/17 19:17 116 32 92 02/10/17 19:02 123 36 91 02/10/17 18:55 120 36 148/86 91 Nasal Cannula 2.0 02/10/17 18:55 148/84 02/10/17 18:47 114 26 02/10/17 18:32 117 34 02/10/17 18:22 95 Mask 8.0 02/10/17 18:22 92 Nasal Cannula 6.0 02/10/17 18:17 105 28 94 02/10/17 18:15 107 20 92 Nasal Cannula 2.0 02/10/17 18:10 171/86 02/10/17 18:08 113 02/10/17 17:56 37.2 116 20 167/79 86 Room Air Physical Exam GENERAL: Patient appears very uncomfortably, tripoding. HEAD: Normocephalic atraumatic EYES: Ocular movements intact pupils equal and react to light OROPHARYNX mucous membranes are moist no exudates present no erythema or edema present NECK: Supple no nuchal rigidity CHEST: Good equal expansion LUNGS: Diffuse wheezing to all lung [place]. CARDIAC: Normal S1 and S2 ABDOMEN: Soft nontender no guarding BACK: No CVA tenderness EXTREMITIES: No pain upon palpation normal muscle strength in all groups no clubbing cyanosis or edema NEURO: Patient is following commands is answering questions appropriately. Alert and oriented x3 Cranial Nerves 2-12 grossly intact Medical Decision & Procedures ER Provider Diagnostic Interpretation: X-ray results as stated below per interpretation by me and the radiologist: SINGLE VIEW CHEST CLINICAL HISTORY: Dyspnea. FINDINGS: 2 AP, portable, upright chest radiographs are compared to study dated 01/23/2017 and correlated with chest CT dated 01/29/2017. The examination is degraded by portable technique and apical lordotic positioning. The cardiomediastinal silhouette is unremarkable. Advanced emphysema and chronic interstitial thickening are similar to previous. There is biapical scarring. No airspace consolidation or large pleural effusion is identified. There is bibasilar atelectasis versus scarring, similar to previous. No pneumothorax is seen. The skeletal structures are osteopenic. The bony thorax is grossly intact. IMPRESSION: Advanced emphysema with no acute cardiopulmonary abnormality. Electronically signed by: Moy Hidalgo M.D. 02/10/2017 6:43 PM Dictated Date/Time: 02/10/2017 6:41 PM Laboratory Results 02/10/17 18:06 Red Blood Count 5.04, Mean Corpuscular Volume 96.4, Mean Corpuscular Hemoglobin 31.9, Mean Corpuscular Hemoglobin Concent 33.1, Mean Platelet Volume 10.5, Neutrophils (%) (Auto) 95.0, Lymphocytes (%) (Auto) 1.4, Monocytes (%) (Auto) 3.0, Eosinophils (%) (Auto) 0.3, Basophils (%) (Auto) 0.1, Neutrophils # (Auto) 14.44, Lymphocytes # (Auto) 0.21, Monocytes # (Auto) 0.46, Eosinophils # (Auto) 0.05, Basophils # (Auto) 0.01 02/10/17 18:06 Test 02/10/17 18:05 02/10/17 18:06 02/10/17 18:13 02/10/17 18:47 Influenza Type A (RT-PCR) Neg for Influ A (NEG) Influenza Type A Antigen Neg for Influ A (NEG) Influenza Type B Antigen Neg for Influ B (NEG) Influenza Type B (RT-PCR) Neg for Influ B (NEG) White Blood Count 15.20 K/uL (4.8-10.8) Red Blood Count 5.04 M/uL (4.7-6.1) Hemoglobin 16.1 g/dL (14.0-18.0) Hematocrit 48.6 % (42-52) Mean Corpuscular Volume 96.4 fL (80-100) Mean Corpuscular Hemoglobin 31.9 pg (25-34) Mean Corpuscular Hemoglobin Concent 33.1 g/dl (32-36) Platelet Count 173 K/uL (130-400) Mean Platelet Volume 10.5 fL (7.4-10.4) Neutrophils (%) (Auto) 95.0 % Lymphocytes (%) (Auto) 1.4 % Monocytes (%) (Auto) 3.0 % Eosinophils (%) (Auto) 0.3 % Basophils (%) (Auto) 0.1 % Neutrophils # (Auto) 14.44 K/uL (1.4-6.5) Lymphocytes # (Auto) 0.21 K/uL (1.2-3.4) Monocytes # (Auto) 0.46 K/uL (0.11-0.59) Eosinophils # (Auto) 0.05 K/uL (0-0.5) Basophils # (Auto) 0.01 K/uL (0-0.2) RDW Standard Deviation 51.4 fL (36.4-46.3) RDW Coefficient of Variation 14.6 % (11.5-14.5) Immature Granulocyte % (Auto) 0.2 % Immature Granulocyte # (Auto) 0.03 K/uL (0.00-0.02) Anion Gap 10.0 mmol/L (3-11) Est Creatinine Clear Calc Drug Dose 74.1 ml/min Estimated GFR () 72.6 Estimated GFR (Non- 62.6 BUN/Creatinine Ratio 12.6 (10-20) Calcium Level 9.0 mg/dl (8.5-10.1) Total Bilirubin 1.8 mg/dl (0.2-1) Aspartate Amino Transf (AST/SGOT) 22 U/L (15-37) Alanine Aminotransferase (ALT/SGPT) 56 U/L (12-78) Alkaline Phosphatase 85 U/L (45-117) Total Creatine Kinase 90 U/L (39-308) Creatine Kinase MB 1.5 ng/ml (0.5-3.6) Creatine Kinase MB Ratio 1.7 (0-3.0) Troponin I < 0.015 ng/ml (0-0.045) Total Protein 7.9 gm/dl (6.4-8.2) Albumin 4.2 gm/dl (3.4-5.0) Globulin 3.7 gm/dl (2.5-4.0) Albumin/Globulin Ratio 1.1 (0.9-2) Bedside Lactic Acid Venous 3.14 mmol/L (0.90-1.70) Arterial Blood pH 7.49 (7.35-7.45) Arterial Blood Partial Pressure CO2 30 mmHg (35-46) Arterial Blood Partial Pressure O2 64 mm/Hg (80-95) Arterial Blood HCO3 22 mmol/L (19-24) Arterial Blood Oxygen Saturation 92.8 % (90-95) Arterial Blood Base Excess 0.2 mEq/L (-9-1.8) Arterial Blood Gas Delivery 8 L Tong Test POS (POS) Labs reviewed by ED physician. Medications Administered Medications (Trade) Dose Ordered Sig/Jeffery Route Start Time Stop Time Status Last Admin Dose Admin Albuterol/ Ipratropium (Duoneb) 12 ml ONE ONCE INH 02/10/17 18:15 02/10/17 18:16 DC 02/10/17 18:15 12 ML Methylprednisolone Sodium Succinate (Solu-Medrol IV) 60 mg NOW STAT IV 02/10/17 18:04 02/10/17 18:06 DC 02/10/17 18:11 60 MG Magnesium Sulfate (Magnesium Sulfate) 2 gm NOW STAT IV 02/10/17 18:04 02/10/17 18:06 DC 02/10/17 18:30 2 GM Piperacillin Sod/ Tazobactam Sod (Zosyn Iv) 4.5 gm NOW STAT IV 02/10/17 18:17 02/10/17 18:18 DC 02/10/17 18:47 4.5 GM Levofloxacin 750 mg 750 mg NOW ONCE IV 02/10/17 18:30 02/10/17 18:31 DC 02/10/17 18:47 750 MG Vancomycin HCl 1000 mg/Sodium Chloride 270 ml @ 125 mls/hr NOW STAT IV 02/10/17 18:17 02/10/17 20:26 DC 02/10/17 20:30 125 MLS/HR Sodium Chloride (Nss 1000ml) 1,000 ml @ 999 mls/hr Q1H1M STAT IV 02/10/17 18:18 02/10/17 19:18 DC 02/10/17 19:08 999 MLS/HR Acetaminophen (Tylenol Tab) 1,000 mg STK-MED ONCE PO 02/10/17 19:06 02/10/17 19:07 DC 02/10/17 19:08 1,000 MG ECG Indication: SOB/dyspnea Rate (beats per minute): 117 Rhythm: sinus tachycardia Findings: no acute ischemic change, no ectopy ED Course 0201: Past medical records reviewed. The patient was evaluated in room B10. A complete history and physical examination was performed. 1803: Ordered Magnesium Sulfate 2 gm IV, Solu-Medrol IV 60 mg IV. 1814: Ordered Duoneb 12 ml INH. 1816: Ordered Vancomycin HCl 1000 mg/ NSS 270 ml @ 125 mls/hr IV, Zosyn Iv 4.5 gm IV. 1817: Ordered NSS 1000 ml @ 999 mls/hr IV. 1829: Ordered Levofloxacin 750 mg IV. 1901: At this time, I discussed the patient's case with Dr. Benoit - Luiz EVANS and he agreed to accept the patient for further evaluation. Medical Decision Differential diagnosis: Etiologies such as infections, reactive airway disease, pneumonia, pneumothorax , COPD, CHF, cardiac ischemia, pulmonary embolism, musculoskeletal, gastrointestinal, as well as others were entertained. This is a 66-year-old male who presents emergency department complaining of shortness of breath and hypoxia. The patient has a history of COPD and for this reason the patient was given a DuoNeb breathing treatment. He has an elevation in his white blood count however this may be from being on steroids. He was started on Solu-Medrol the emergency department and was pancultured. He does have an elevation in his lactic acid. He was given fluid here in emergency department and started on Zosyn and Levaquin and vancomycin. His flu swab is negative. I did discuss the case with the hospitalist service who agreed to admit the patient. Patient family were in agreement with the treatment plan. Consults Time Called: 1854 Consulting Physician: Dr. Kaycee EVANS Returned Call: [phone] At this time, I discussed the patient's case with Dr. Benoit and he agreed to accept the patient for further evaluation. Impression Primary Impression: COPD exacerbation Critical Care I have personally spent greater than 30 minutes of critical care time in the direct management of this patient. This includes bedside care, interpretation of diagnostic studies, and testing, discussion with consultants, patient, and family members, and other required patient management activities. This 30 minutes is in excess of all separately billable procedures. Scribe Attestation The scribe's documentation has been prepared under my direction and personally reviewed by me in its entirety. I confirm that the note above accurately reflects all work, treatment, procedures, and medical decision making performed by me. Departure Information Dispostion Being Evaluated By Hospitalist Jocelyne Palacios M.D. (PCP)
[2017-02-10] MEDS ORDERED: MULT-506 PO (18:28)
[2017-02-10] MEDS ORDERED: LEVAQUIN 750MG / 150ML D5W IV ONE (18:30)
[2017-02-10] MEDS ORDERED: LEVO88TA PO (18:31)
[2017-02-10] MEDS ORDERED: HYDR-5688 PO (18:32)
[2017-02-10 18:33] LABS: ALT/SGPT 56 U/L (12-78); AST/SGOT 22 U/L (15-37); BLOOD UREA NITROGEN 15 mg/dl (7-18); BUN/CREATININE RATIO 12.6 (10-20); CARBON DIOXIDE 29 mmol/L (21-32); CHLORIDE 98 mmol/L (98-107); GLUCOSE 109 mg/dl (70-99); POTASSIUM 4.2 mmol/L (3.5-5.1); SODIUM 137 mmol/L (136-145)
[2017-02-10] MEDS ORDERED: SYMIN160 INH (18:33)
[2017-02-10] MEDS ORDERED: IPRASOL4 INH (18:33)
[2017-02-10] MEDS ORDERED: ALBINS/ INH (18:33)
[2017-02-10] MEDS ORDERED: OMEP20CA9 PO (18:34)
[2017-02-10 18:38] LABS: ALB/GLOB RATIO 1.1 (0.9-2); ALKALINE PHOSPHATASE 85 U/L (45-117); CKMB/CK RATIO 1.7 (0-3.0)
--- NOTE | 2017-02-10 18:44 | DIAGNOSTIC IMAGING REPORT ---
SINGLE VIEW CHEST CLINICAL HISTORY: Dyspnea. FINDINGS: 2 AP, portable, upright chest radiographs are compared to study dated 01/23/2017 and correlated with chest CT dated 01/29/2017. The examination is degraded by portable technique and apical lordotic positioning. The cardiomediastinal silhouette is unremarkable. Advanced emphysema and chronic interstitial thickening are similar to previous. There is biapical scarring. No airspace consolidation or large pleural effusion is identified. There is bibasilar atelectasis versus scarring, similar to previous. No pneumothorax is seen. The skeletal structures are osteopenic. The bony thorax is grossly intact. IMPRESSION: Advanced emphysema with no acute cardiopulmonary abnormality. Electronically signed by: Moy Hidalgo M.D. 02/10/2017 6:43 PM Dictated Date/Time: 02/10/2017 6:41 PM
[2017-02-10 18:59] LABS: ARTERIAL BLD GAS O2 SATURATION 92.8 % (90-95); ARTERIAL BLOOD GAS BASE EXCESS 0.2 mEq/L (-9-1.8); ARTERIAL BLOOD GAS HCO3 22 mmol/L (19-24); ARTERIAL BLOOD GAS PO2 64 mm/Hg (80-95); ARTERIAL BLOOD GAS pH 7.49 (7.35-7.45)
[2017-02-10 19:00] LABS: ALLEN TEST POS (POS); O2 ADMINISTRATION 8 L
[2017-02-10] MEDS ORDERED: ACETAMINOPHEN 500 MG TAB PO ONE (19:06)
[2017-02-10 20:13] LABS: INFLUENZA A PCR Neg for Influ A (NEG); INFLUENZA B PCR Neg for Influ B (NEG)
[2017-02-10] MEDS ORDERED: ONDANSETRON INJ 2 MG/ML 2 ML VIAL IV PRN (20:15)
[2017-02-10] MEDS ORDERED: NITROGLYCERIN 0.4 MG SL PER TAB CHARGE SL PRN (20:15)
[2017-02-10] MEDS ORDERED: ACETAMINOPHEN 325 MG TAB PO PRN (20:15)
[2017-02-10] MEDS ORDERED: HYDROCODONE/ACETAMOPHEN 5/325MG TAB PO PRN (20:15)
[2017-02-10] MEDS ORDERED: LEVALBUTEROL/IPRATROPIUM NEB INH SCH (21:00)
[2017-02-10 21:12] VITALS: BP 142/68; PULSE 104; TEMP 36.9; O2SAT 92; Ht 185.4 cm; Wt 94.9 kg
[2017-02-10] MEDS ORDERED: VANCOMYCIN CONSULT ACTIVE PRN (21:30)
[2017-02-10] MEDS ORDERED: PIPERACILL/TAZOBAC CONSULT ACTIVE PRN (21:30)
[2017-02-10] MEDS ORDERED: VANCOMYCIN INJ 1,400 MG in SODIUM CHLORIDE 0.9% 500ML 500 ML IV SCH (22:00)
[2017-02-10] MEDS: ZOLPIDEM TARTRATE 10 MG TAB PO SCH (22:37)
[2017-02-10] MEDS: LOPERAMIDE HCL 2 MG CAP PO SCH (22:37)
[2017-02-10] MEDS: GUAIFENESIN 600 MG TABCR PO SCH (22:37)
[2017-02-10] MEDS: COLESTIPOL HCL 1 GM TAB PO SCH (22:38)
[2017-02-10] MEDS: DILTIAZEM HCL 30 MG TAB PO SCH (22:38)
[2017-02-10] MEDS: PIPERACILL/TAZOBAC IV 3.375 GM in DEXTROSE 5% 100ML 100 ML IV SCH (23:00)
[2017-02-10] MEDS: METHYLPREDNISOLONE IV 40 MG in SYRINGE 0 ML IV SCH (23:00)
[2017-02-11] VITALS (12 sets, daily range): BP systolic 122–139; BP diastolic 63–78; PULSE 67–87; TEMP 36.4–36.9; O2SAT 92–99
[2017-02-11] MEDS: IPRATROPIUM BROMIDE NEB SOLN 0.02% 2.5 ML VIAL INH SCH ×4 (02:28→19:05)
[2017-02-11] MEDS: LEVALBUTEROL 1.25MG/0.5ML NEB INH SCH ×4 (02:28→19:05)
--- NOTE | 2017-02-11 02:33 | History and Physical ---
History & Physical Date & Time of Service: February 11, 2017 at 02:16. The patient was seen on 02/10/2017. Chief Complaint: Hypoxia,Sinus Tachycardia Seen On Digital Commentator Primary Care Physician: Jocelyne Cook M.D. History of Present Illness Source: patient, spouse The patient is a 66-year-old male with a past medical history of COPD, with chronic inhaler use at home, and history of steroid use in the past, who presents to emergency department with worsening difficulty breathing in spite of outpatient treatment by his PCP and the offices [place]. His breathing considerably worsened over the past 24 hours, and he developed some chills, and found his blood pressure to be elevated significantly beyond his baseline when he tested it. He has not had any recent travel, sick exposures, chest pain, nausea or vomiting, generalized myalgias or arthralgias. Past Medical/Surgical History Medical Problems: (1) Bronchitis Status: Resolved (2) Emphysema, unspecified Status: Resolved (3) Hypertension Status: Chronic (4) Pneumonia Status: Resolved Family History FH: cancer FH: hypertension Social History Smoking Status: Former Smoker Smokeless Tobacco Use: No Alcohol Use: none Drug Use: none Marital Status: Housing status: lives with family Occupational Status: retired Multi-Drug Resistant Organisms History of MDRO: No Allergies Coded Allergies: No Known Allergies (Unverified , 12/12/16) Home Medications Scheduled Amlodipine (Norvasc), 5 MG PO DAILY Azathioprine (Imuran), 50 MG PO DAILY Budesonide/Formoterol Fumarate (Symbicort 160/4.5 Inhaler), 2 PUFF INH BID Colestipol Hcl (Colestipol Hcl), 1 GM PO BID Cyanocobalamin (Vitamin B-12), 100 MCG PO DAILY Ipratropium-Albuterol (Duoneb), 1 TREATMENT INH TID Levothyroxine Sodium (Synthroid), 88 MCG PO QPM Loperamide HCl (Loperamide HCl), 2 MG PO BID Multivitamin (Multivitamin), 1 TAB PO DAILY Omeprazole (Prilosec), 20 MG PO QAM Prednisone (Prednisone), 40 MG PO BID Tiotropium [place] (Spiriva Handihaler), 1 PUFF INH QAM Zolpidem Tartrate (Ambien), 10 MG PO HS Scheduled PRN Albuterol Sulf (Proventil 0.083% 2.5MG/3ML), 2.5 MG INH Q4 PRN for Shortness of Breath Albuterol Sulfate (Proair Respiclick), 2 PUFFS INH QID PRN for SOB/Wheezing Hydrocodone/Acetaminophen 5MG/325MG ([place] 5MG/325MG), 1 TABLET PO Q4H PRN for Pain Review of Systems Constitutional: + chills, No fatigue, No fever, No sweats, No weakness, No weight loss Eyes: No diplopia, No discharge, No eye pain, No problem reported, No redness, No worsening of vision ENT: No dental problems, No hearing loss, No nasal symptoms, No problem reported, No sore throat, No tinnitus, No trouble swallowing, No unusual epistaxis Respiratory: + dyspnea on exertion, + shortness of breath, + wheezing, No cough , No dyspnea at rest, No hemoptysis, No sputum Cardiovascular: No PND, No chest pain, No claudication, No edema, No orthopnea , No palpitations, No problem reported Abdomen: No GI bleeding, No constipation, No diarrhea, No nausea, No pain, No problem reported, No vomiting Musculoskeletal: No calf pain, No joint pain, No muscle pain, No problem reported, No swelling Genitourinary - Male: No dysuria, No hematuria, No impotence, No lesions, No penile discharge, No problem reported, No urinary frequency, No urinary hesitancy, No urinary incontinence, No urinary retention, No urinary urgency Neurologic: No balance problems, No memory loss, No numbness/tingling, No paralysis, No problem reported, No vertigo, No weakness Psychiatric: No anhedonism, No anxiety, No depression symptoms, No insomnia, No problem reported, No substance abuse Endocrine: No excessive thirst, No excessive urination, No fatigue, No problem reported Integumentary: No bleeding, No color change, No itch, No new/changing skin lesions, No problem reported, No rash Allergic / Immunologic: No environmental allergies, No food allergies, No frequent infections, No hives, No pet sensitivities, No poor healing, No problem reported, No prolonged convalescence, No seasonal allergies Physical Exam Vital Signs Date Time Temp Pulse Resp B/P Pulse Ox O2 Delivery O2 Flow Rate FiO2 02/11/17 00:00 36.7 79 18 127/72 96 Nasal Cannula 4.0 02/11/17 00:00 96 Nasal Cannula 4.0 02/10/17 21:12 36.9 104 20 142/68 92 Nasal Cannula 4.0 02/10/17 20:28 37.7 02/10/17 19:47 116 19 92 02/10/17 19:32 117 23 92 02/10/17 19:17 116 32 92 02/10/17 19:02 123 36 91 02/10/17 18:55 120 36 148/86 91 Nasal Cannula 2.0 02/10/17 18:55 148/84 02/10/17 18:47 114 26 02/10/17 18:32 117 34 02/10/17 18:22 95 Mask 8.0 02/10/17 18:22 92 Nasal Cannula 6.0 02/10/17 18:17 105 28 94 02/10/17 18:15 107 20 92 Nasal Cannula 2.0 02/10/17 18:10 171/86 02/10/17 18:08 113 02/10/17 17:56 37.2 116 20 167/79 86 Room Air General Appearance: WD/WN, no apparent distress Head: normocephalic, atraumatic Eyes: normal inspection, PERRL, EOMI, sclerae normal ENT: normal ENT inspection, hearing grossly normal, TMs normal, pharynx normal Neck: supple, no adenopathy, thyroid normal, no JVD, no carotid bruits, trachea midline (6) Respiratory/Chest: chest non-tender, no respiratory distress, + rhonchi, + wheezing Cardiovascular: regular rate, rhythm, no edema, no gallop, no JVD, no murmur, normal peripheral pulses Abdomen/GI: normal bowel sounds, non tender, soft, no organomegaly, no pulsatile mass Back: normal inspection, no CVA tenderness, no muscle spasm, normal range of motion Extremities/Musculoskelatal: normal inspection, no calf tenderness, normal capillary refill, no pedal edema, normal range of motion, non-tender 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, no motor/sensory deficits, alert, normal mood/affect, normal reflexes, oriented x 3 Skin: normal color, warm/dry, no rash Lymphatic: no adenopathy Diagnostics Laboratory Results Results Past 24 Hours Test 02/10/17 18:05 02/10/17 18:06 02/10/17 18:13 02/10/17 18:47 Range/Units Influenza Type A (RT-PCR) Neg for Influ A NEG Influenza Type A Antigen Neg for Influ A NEG Influenza Type B Antigen Neg for Influ B NEG Influenza Type B (RT-PCR) Neg for Influ B NEG White Blood Count 15.20 4.8-10.8 K/uL Red Blood Count 5.04 4.7-6.1 M/uL Hemoglobin 16.1 14.0-18.0 g/dL Hematocrit 48.6 42-52 % Mean Corpuscular Volume 96.4 80-100 fL Mean Corpuscular Hemoglobin 31.9 25-34 pg Mean Corpuscular Hemoglobin Concent 33.1 32-36 g/dl Platelet Count 173 130-400 K/uL Mean Platelet Volume 10.5 7.4-10.4 fL Neutrophils (%) (Auto) 95.0 % Lymphocytes (%) (Auto) 1.4 % Monocytes (%) (Auto) 3.0 % Eosinophils (%) (Auto) 0.3 % Basophils (%) (Auto) 0.1 % Neutrophils # (Auto) 14.44 1.4-6.5 K/uL Lymphocytes # (Auto) 0.21 1.2-3.4 K/uL Monocytes # (Auto) 0.46 0.11-0.59 K/uL Eosinophils # (Auto) 0.05 0-0.5 K/uL Basophils # (Auto) 0.01 0-0.2 K/uL RDW Standard Deviation 51.4 36.4-46.3 fL RDW Coefficient of Variation 14.6 11.5-14.5 % Immature Granulocyte % (Auto) 0.2 % Immature Granulocyte # (Auto) 0.03 0.00-0.02 K/uL Sodium Level 137 136-145 mmol/L Potassium Level 4.2 3.5-5.1 mmol/L Chloride Level 98 98-107 mmol/L Carbon Dioxide Level 29 21-32 mmol/L Anion Gap 10.0 3-11 mmol/L Blood Urea Nitrogen 15 7-18 mg/dl Creatinine 1.20 0.60-1.40 mg/dl Est Creatinine Clear Calc Drug Dose 74.1 ml/min Estimated GFR () 72.6 Estimated GFR (Non- 62.6 BUN/Creatinine Ratio 12.6 10-20 Random Glucose 109 70-99 mg/dl Calcium Level 9.0 8.5-10.1 mg/dl Total Bilirubin 1.8 0.2-1 mg/dl Aspartate Amino Transf (AST/SGOT) 22 15-37 U/L Alanine Aminotransferase (ALT/SGPT) 56 12-78 U/L Alkaline Phosphatase 85 45-117 U/L Total Creatine Kinase 90 39-308 U/L Creatine Kinase MB 1.5 0.5-3.6 ng/ml Creatine Kinase MB Ratio 1.7 0-3.0 Troponin I < 0.015 0-0.045 ng/ml Total Protein 7.9 6.4-8.2 gm/dl Albumin 4.2 3.4-5.0 gm/dl Globulin 3.7 2.5-4.0 gm/dl Albumin/Globulin Ratio 1.1 0.9-2 Bedside Lactic Acid Venous 3.14 0.90-1.70 mmol/L Arterial Blood pH 7.49 7.35-7.45 Arterial Blood Partial Pressure CO2 30 35-46 mmHg Arterial Blood Partial Pressure O2 64 80-95 mm/Hg Arterial Blood HCO3 22 19-24 mmol/L Arterial Blood Oxygen Saturation 92.8 90-95 % Arterial Blood Base Excess 0.2 -9-1.8 mEq/L Arterial Blood Gas Delivery 8 L Tong Test POS POS Microbiology Results 02/10/17 Blood Culture, Received Pending 02/10/17 Blood Culture, Received Pending Diagnostic Radiology Patient Name: CHARLES TORRES Unit Number: [id number] Dictated: 02/10/171840 Transcribed: 02/10/171840 EV Printed Date/Time: [~ rep prt dt]/[~ rep prt tm] [~ rep ct labl] - [~ rep ct ivnm] [facility] [place] [address] Dictated: 02/10/171840 Transcribed: 02/10/171840 EV Printed Date/Time: [~ rep prt dt]/[~ rep prt tm] [~ rep ct labl] - [~ rep ct ivnm] SINGLE VIEW CHEST CLINICAL HISTORY: Dyspnea. FINDINGS: 2 AP, portable, upright chest radiographs are compared to study dated 01/23/2017 and correlated with chest CT dated 01/29/2017. The examination is degraded by portable technique and apical lordotic positioning. The cardiomediastinal silhouette is unremarkable. Advanced emphysema and chronic interstitial thickening are similar to previous. There is biapical scarring. No airspace consolidation or large pleural effusion is identified. There is bibasilar atelectasis versus scarring, similar to previous. No pneumothorax is seen. The skeletal structures are osteopenic. The bony thorax is grossly intact. IMPRESSION: Advanced emphysema with no acute cardiopulmonary abnormality. Electronically signed by: Moy Hidalgo M.D. 02/10/2017 6:43 PM Dictated Date/Time: 02/10/2017 6:41 PM The status of this report is Signed. Draft = Not yet reviewed or approved by Radiologist. Signed = Reviewed and approved by Radiologist. <AttendingPhy></AttendingPhy> <FamilyPhy>Jocelyne Cook M.D.</FamilyPhy> < PrimaryPhy>Jocelyne Cook M.D.</PrimaryPhy> <UnitNumber>[id number]</UnitNumber > <VisitNumber>[id number]</VisitNumber> <PatientName>CHARLES TORRES</PatientName > <DateOfBirth>1950</DateOfBirth> <Location>C.EDB</Location> <ServiceDate> 02/10/17</ServiceDate> <MNE>ESINDI</MNE> <OrderingPhy>Real Wu MD</ OrderingPhy> <OrderingPhyMNE>f rep ord dr norman</OrderingPhyMNE> <DictatingPhyMNE> f rep dict dr norman</DictatingPhyMNE> <CCListMNE>f rep ct emerson</CCListMNE> < AdmittingPhyMNE>f pt admit dr norman</AdmittingPhyMNE> <AttendingPhyMNE>f pt attend dr norman</AttendingPhyMNE> <ConsultingPhyMNE>f pt consult dr norman</ConsultingPhyMNE> <FamilyPhyMNE>f pt fam dr norman</FamilyPhyMNE> <OtherPhyMNE>f pt other dr norman</OtherPhyMNE> < PrimaryPhyMNE>f pt prim care dr norman</PrimaryPhyMNE> <ReferringPhyMNE>f pt referring dr norman</ReferringPhyMNE> EKG EKG shows sinus tachycardia at 117 bpm, with [address] depressions in inferior lateral leads Impression Assessment and Plan Hypoxia/COPD exacerbation/chronic bronchitis/failure of outpatient treatment-- the patient will be admitted to the telemetry unit. He will be placed on Solu- Medrol 40 mg IV every 6 hours, vancomycin IV per renal dosing, Zosyn 3.375 mg IV every 6 hours, levofloxacin 500 mg IV daily, guaifenesin extended release 600 mg by mouth twice a day, Xopenex/Atrovent high flow nebulizers every 6 hours while awake and every 2 hours when necessary, and nasal cannula 2 L of oxygen titrating to keep pulse ox greater than or equal to 92%. We will hold Symbicort, DuoNeb's, prednisone and Spiriva. Sinus tachycardia with rate dependent ST segment depression in inferolateral leads--patient be admitted to the telemetry unit for serial cardiac enzymes, cardiac rhythm monitoring and a 2-D echocardiogram with Dopplers. We will discontinue amlodipine 5 mg by mouth daily, and instead place patient on Cardizem 30 mg by mouth every 6 hours. Will repeat EKG in the a.m. Hypothyroidism--continue levothyroxine sodium 88 g by mouth every afternoon. GERD--change omeprazole 20 mg by mouth every morning to pantoprazole 40 mg by mouth every morning. Insomnia--continue zolpidem tartrate 10 mg by mouth at bedtime. Diarrhea--continue loperamide 2 mg by mouth twice a day. Vitamin B-12 deficiency--continue supplement 100 g by mouth daily. Continue Imuran 50 mg by mouth daily. Level of Care Telemetry Advanced Directives Existing Advance Directive: No Existing Living Will: Yes Existing Power of Barrel Maker: Yes Resuscitation Status FULL RESUSCITATION VTE Prophylaxis VTE Risk Assessment Done? Y/N: Yes Risk Level: Moderate Given or contraindicated: SCD's Social Service Consult None Apply
[2017-02-11 04:30] LABS: BASO % 0.1 %; BASO ABS # 0.01 K/uL (0-0.2); COMPLETE YES; EOS % 0.1 %; HEMATOCRIT 41.2 % (42-52); IG% 0.3 %; LYMPH % 2.1 %; LYMPH ABS # 0.32 K/uL (1.2-3.4); MEAN CELL VOLUME 94.7 fL (80-100); MEAN CORPUSCULAR HGB CONC 33.7 g/dl (32-36); MEAN PLATELET VOLUME 10.4 fL (7.4-10.4); NEUT % 95.4 %; PLATELET COUNT 124 K/uL (130-400); RED BLOOD COUNT 4.35 M/uL (4.7-6.1)
--- NOTE | 2017-02-11 04:55 | Pharmacy Progress Note ---
Pharmacy Antibiotic Consult Date of Service: February 11, 2017. Pharmacy Dosing Scope Pharmacy is consulted to initiate Vancomycin and Zosyn IV dosing therapy, order appropriate labs and adjust drug dose/frequency. Subjective The patient is a 66 year old male admitted on February 10, 2017 at 19:[address] Benoit is treating for possible PNX in this COPD/Emphysema patient. Objective Height (Feet): 6 Height (Inches): 1.00 Weight (Kilograms): 95.800 Lab Results (24hrs): Test 02/10/17 18:05 02/10/17 18:06 02/10/17 18:13 02/10/17 18:47 Influenza Type A (RT-PCR) Neg for Influ A (NEG) Influenza Type A Antigen Neg for Influ A (NEG) Influenza Type B Antigen Neg for Influ B (NEG) Influenza Type B (RT-PCR) Neg for Influ B (NEG) White Blood Count 15.20 K/uL (4.8-10.8) Red Blood Count 5.04 M/uL (4.7-6.1) Hemoglobin 16.1 g/dL (14.0-18.0) Hematocrit 48.6 % (42-52) Mean Corpuscular Volume 96.4 fL (80-100) Mean Corpuscular Hemoglobin 31.9 pg (25-34) Mean Corpuscular Hemoglobin Concent 33.1 g/dl (32-36) Platelet Count 173 K/uL (130-400) Mean Platelet Volume 10.5 fL (7.4-10.4) Neutrophils (%) (Auto) 95.0 % Lymphocytes (%) (Auto) 1.4 % Monocytes (%) (Auto) 3.0 % Eosinophils (%) (Auto) 0.3 % Basophils (%) (Auto) 0.1 % Neutrophils # (Auto) 14.44 K/uL (1.4-6.5) Lymphocytes # (Auto) 0.21 K/uL (1.2-3.4) Monocytes # (Auto) 0.46 K/uL (0.11-0.59) Eosinophils # (Auto) 0.05 K/uL (0-0.5) Basophils # (Auto) 0.01 K/uL (0-0.2) RDW Standard Deviation 51.4 fL (36.4-46.3) RDW Coefficient of Variation 14.6 % (11.5-14.5) Immature Granulocyte % (Auto) 0.2 % Immature Granulocyte # (Auto) 0.03 K/uL (0.00-0.02) Sodium Level 137 mmol/L (136-145) Potassium Level 4.2 mmol/L (3.5-5.1) Chloride Level 98 mmol/L (98-107) Carbon Dioxide Level 29 mmol/L (21-32) Anion Gap 10.0 mmol/L (3-11) Blood Urea Nitrogen 15 mg/dl (7-18) Creatinine 1.20 mg/dl (0.60-1.40) Est Creatinine Clear Calc Drug Dose 74.1 ml/min Estimated GFR () 72.6 Estimated GFR (Non- 62.6 BUN/Creatinine Ratio 12.6 (10-20) Random Glucose 109 mg/dl (70-99) Calcium Level 9.0 mg/dl (8.5-10.1) Total Bilirubin 1.8 mg/dl (0.2-1) Aspartate Amino Transf (AST/SGOT) 22 U/L (15-37) Alanine Aminotransferase (ALT/SGPT) 56 U/L (12-78) Alkaline Phosphatase 85 U/L (45-117) Total Creatine Kinase 90 U/L (39-308) Creatine Kinase MB 1.5 ng/ml (0.5-3.6) Creatine Kinase MB Ratio 1.7 (0-3.0) Troponin I < 0.015 ng/ml (0-0.045) Total Protein 7.9 gm/dl (6.4-8.2) Albumin 4.2 gm/dl (3.4-5.0) Globulin 3.7 gm/dl (2.5-4.0) Albumin/Globulin Ratio 1.1 (0.9-2) Bedside Lactic Acid Venous 3.14 mmol/L (0.90-1.70) Arterial Blood pH 7.49 (7.35-7.45) Arterial Blood Partial Pressure CO2 30 mmHg (35-46) Arterial Blood Partial Pressure O2 64 mm/Hg (80-95) Arterial Blood HCO3 22 mmol/L (19-24) Arterial Blood Oxygen Saturation 92.8 % (90-95) Arterial Blood Base Excess 0.2 mEq/L (-9-1.8) Arterial Blood Gas Delivery 8 L Tong Test POS (POS) Test 02/11/17 04:06 02/11/17 04:25 Creatine Kinase MB Ratio (0-3.0) White Blood Count 15.60 K/uL (4.8-10.8) Red Blood Count 4.35 M/uL (4.7-6.1) Hemoglobin 13.9 g/dL (14.0-18.0) Hematocrit 41.2 % (42-52) Mean Corpuscular Volume 94.7 fL (80-100) Mean Corpuscular Hemoglobin 32.0 pg (25-34) Mean Corpuscular Hemoglobin Concent 33.7 g/dl (32-36) Platelet Count 124 K/uL (130-400) Mean Platelet Volume 10.4 fL (7.4-10.4) Neutrophils (%) (Auto) 95.4 % Lymphocytes (%) (Auto) 2.1 % Monocytes (%) (Auto) 2.0 % Eosinophils (%) (Auto) 0.1 % Basophils (%) (Auto) 0.1 % Neutrophils # (Auto) 14.90 K/uL (1.4-6.5) Lymphocytes # (Auto) 0.32 K/uL (1.2-3.4) Monocytes # (Auto) 0.31 K/uL (0.11-0.59) Eosinophils # (Auto) 0.01 K/uL (0-0.5) Basophils # (Auto) 0.01 K/uL (0-0.2) RDW Standard Deviation 50.4 fL (36.4-46.3) RDW Coefficient of Variation 14.4 % (11.5-14.5) Immature Granulocyte % (Auto) 0.3 % Immature Granulocyte # (Auto) 0.05 K/uL (0.00-0.02) Micro Results: Item Value Date Time Blood Culture Received 02/10/17 1848 Blood Pending Blood Culture Received 02/10/17 1806 Blood Pending Recent Pertinent Medications Item Value Date Time Levofloxacin 500 100 ml @ 100 mls/hr 02/11/17 1800 mg/Prmx Q24H/IV Piperacillin Sod/ 115 ml @ 28.75 mls/hr 02/11/17 0000 Tazobactam Sod Q8H/IV 02/10/17 2300 3.375 gm/Dextrose Assessment & Plan Loading dose: Modified with Vancomycin 1000mg in the ED then 1400mg IV x 1 right after to allow for 25mg/kg loading dose then: Vancomycin 1450mg (~15mg/kg ) IV every 12 hours thereafter. We calculated his half life at about 10&1/2 hours. Will check a trough level prior to 0200 dose on 02/13/17. In addition I ordered a MRSA nasal swab this morning with AM labs. Goal trough level estimate: between 15-20 mcg/mL. Pharmacy will continue to follow and will adjust dose/frequency as necessary. Thank you
[2017-02-11 04:59] LABS: BLOOD UREA NITROGEN 16 mg/dl (7-18); BUN/CREATININE RATIO 16.2 (10-20); CALCIUM 8.2 mg/dl (8.5-10.1); CARBON DIOXIDE 24 mmol/L (21-32); CHLORIDE 104 mmol/L (98-107); GLUCOSE 154 mg/dl (70-99); MAGNESIUM 2.7 mg/dl (1.8-2.4); POTASSIUM 4.3 mmol/L (3.5-5.1); SODIUM 137 mmol/L (136-145)
[2017-02-11 05:04] LABS: CKMB/CK RATIO 1.2 (0-3.0)
[2017-02-11] MEDS: LEVOTHYROXINE 88 MCG TAB PO SCH (05:49)
[2017-02-11] MEDS: METHYLPREDNISOLONE IV 40 MG in SYRINGE 0 ML IV SCH ×4 (06:02→23:46)
[2017-02-11] MEDS: CYANOCOBALAMIN 100 MCG TAB (VIT B-12) PO SCH (07:44)
[2017-02-11] MEDS: PANTOprazole SOD 40 MG TAB PO SCH (07:44)
[2017-02-11] MEDS: PIPERACILL/TAZOBAC IV 3.375 GM in DEXTROSE 5% 100ML 100 ML IV SCH ×3 (07:44→23:46)
[2017-02-11] MEDS: AZATHIOPRINE 50 MG TAB PO SCH (07:44)
[2017-02-11] MEDS: DILTIAZEM HCL 30 MG TAB PO SCH ×4 (07:45→21:52)
[2017-02-11] MEDS: GUAIFENESIN 600 MG TABCR PO SCH ×2 (07:45→21:52)
[2017-02-11] MEDS: MULTIVITAMIN TAB PO SCH (07:45)
[2017-02-11] MEDS: LOPERAMIDE HCL 2 MG CAP PO SCH ×2 (07:46→21:52)
[2017-02-11] MEDS: LACTOBACILLUS ACIDOPHILUS (FLORANEX) TAB PO SCH ×3 (07:46→17:00)
--- NOTE | 2017-02-11 09:02 | Hospitalist Progress Note ---
Hospitalist Progress Note Date of Service February 11, 2017. Subjective Pt evaluation today including: conversation w/ patient, physical exam, chart review SOB improved. Medications Medications (Trade) Dose Ordered Sig/Jeffery Route Start Time Stop Time Status Last Admin Dose Admin Albuterol/ Ipratropium (Duoneb) 12 ml ONE ONCE INH 02/10/17 18:15 02/10/17 18:16 DC 02/10/17 18:15 12 ML Methylprednisolone Sodium Succinate (Solu-Medrol IV) 60 mg NOW STAT IV 02/10/17 18:04 02/10/17 18:06 DC 02/10/17 18:11 60 MG Magnesium Sulfate (Magnesium Sulfate) 2 gm NOW STAT IV 02/10/17 18:04 02/10/17 18:06 DC 02/10/17 18:30 2 GM Piperacillin Sod/ Tazobactam Sod (Zosyn Iv) 4.5 gm NOW STAT IV 02/10/17 18:17 02/10/17 18:18 DC 02/10/17 18:47 4.5 GM Levofloxacin 750 mg 750 mg NOW ONCE IV 02/10/17 18:30 02/10/17 18:31 DC 02/10/17 18:47 750 MG Vancomycin HCl 1000 mg/Sodium Chloride 270 ml @ 125 mls/hr NOW STAT IV 02/10/17 18:17 02/10/17 20:26 DC 02/10/17 20:30 125 MLS/HR Sodium Chloride (Nss 1000ml) 1,000 ml @ 999 mls/hr Q1H1M STAT IV 02/10/17 18:18 02/10/17 19:18 DC 02/10/17 19:08 999 MLS/HR Acetaminophen (Tylenol Tab) 1,000 mg STK-MED ONCE PO 02/10/17 19:06 02/10/17 19:07 DC 02/10/17 19:08 1,000 MG Azathioprine (Imuran Tab) 50 mg DAILY PO 02/11/17 09:00 03/13/17 08:59 02/11/17 07:44 50 MG Colestipol HCl (Colestid Tab) 1 gm BID@1000,2200 PO 02/10/17 22:00 03/12/17 21:59 02/10/17 22:38 1 GM Cyanocobalamin (Vitamin B-12 Tab) 100 mcg DAILY PO 02/11/17 09:00 03/13/17 08:59 02/11/17 07:44 100 MCG Levothyroxine Sodium (Synthroid Tab) 88 mcg DAILYBB PO 02/11/17 06:00 03/13/17 05:59 02/11/17 05:49 88 MCG Loperamide HCl (Imodium Cap) 2 mg BID PO 02/10/17 21:00 03/12/17 20:59 02/11/17 07:46 2 MG Multivitamins (Multivitamin Tab) 1 tab DAILY PO 02/11/17 09:00 03/13/17 08:59 02/11/17 07:45 1 TAB Zolpidem Tartrate (Ambien Tab) 10 mg HS PO 02/10/17 21:00 03/12/17 20:59 02/10/17 22:37 10 MG Pantoprazole Sodium 40 mg 40 mg QAM PO 02/11/17 09:00 03/13/17 08:59 02/11/17 07:44 40 MG Piperacillin Sod/ Tazobactam Sod 3.375 gm/Dextrose 115 ml @ 28.75 mls/ hr Q8H IV 02/11/17 00:00 02/17/17 17:59 02/11/17 07:44 28.75 MLS/HR Vancomycin HCl 1400 mg/Sodium Chloride 528 ml @ 200 mls/hr TODAY@2200 IV 02/10/17 22:00 02/11/17 02:00 DC 02/10/17 23:00 200 MLS/HR Methylprednisolone Sodium Succinate/ Syringe (Solu-Medrol IV/ Syringe) 0.64 ml @ 1.5 mls/min Q6 IV 02/11/17 00:00 03/13/17 00:00 02/11/17 06:02 1.5 MLS/MIN Guaifenesin (Mucinex Contr Rel Tab) 600 mg BID PO 02/10/17 21:00 03/12/17 20:59 02/11/17 07:45 600 MG Lactobacillus Acidophilus (Floranex Tab) 4 tab TIDM PO 02/11/17 07:30 03/13/17 07:59 02/11/17 07:46 4 TAB Diltiazem HCl (Cardizem Tab) 30 mg QID PO 02/10/17 21:00 03/12/17 20:59 02/11/17 07:45 30 MG Levalbuterol (Xopenex 1.25MG/ 0.5ML Neb) 1.25 mg Q6R INH 02/11/17 03:00 03/13/17 02:59 02/11/17 07:00 1.25 MG Ipratropium [place] (Atrovent 0.02% 0.5MG/2.5ML Neb) 0.5 mg Q6R INH 02/11/17 03:00 03/13/17 02:59 02/11/17 07:00 0.5 MG Objective Vital Signs Date Time Temp Pulse Resp B/P Pulse Ox O2 Delivery O2 Flow Rate FiO2 02/11/17 07:36 36.6 72 16 122/67 94 Nasal Cannula 2.0 02/11/17 07:00 67 20 99 Nasal Cannula 2.0 02/11/17 04:10 36.8 78 18 128/78 98 Nasal Cannula 2.0 02/11/17 04:00 96 Nasal Cannula 2.0 02/11/17 02:28 67 22 99 Nasal Cannula 4.0 02/11/17 00:00 36.7 79 18 127/72 96 Nasal Cannula 4.0 02/11/17 00:00 96 Nasal Cannula 4.0 02/10/17 21:12 36.9 104 20 142/68 92 Nasal Cannula 4.0 02/10/17 20:28 37.7 02/10/17 19:47 116 19 92 02/10/17 19:32 117 23 92 02/10/17 19:17 116 32 92 02/10/17 19:02 123 36 91 02/10/17 18:55 120 36 148/86 91 Nasal Cannula 2.0 02/10/17 18:55 148/84 02/10/17 18:47 114 26 02/10/17 18:32 117 34 02/10/17 18:22 95 Mask 8.0 02/10/17 18:22 92 Nasal Cannula 6.0 02/10/17 18:17 105 28 94 02/10/17 18:15 107 20 92 Nasal Cannula 2.0 02/10/17 18:10 171/86 02/10/17 18:08 113 02/10/17 17:56 37.2 116 20 167/79 86 Room Air Physical Exam General Appearance: WD/WN Eyes: normal inspection ENT: normal ENT inspection Neck: supple Respiratory/Chest: chest non-tender, + decreased breath sounds Cardiovascular: regular rate, rhythm, no edema, no murmur Abdomen: normal bowel sounds, non tender, soft Extremities: normal range of motion Neurologic/Psychiatric: hairspring cutter II-XII nml as tested, no motor/sensory deficits, alert, oriented x 3 Skin: normal color Laboratory Results Last 24 Hours Test 02/10/17 18:05 02/10/17 18:06 02/10/17 18:13 02/10/17 18:47 Influenza Type A (RT-PCR) Neg for Influ A Influenza Type A Antigen Neg for Influ A Influenza Type B Antigen Neg for Influ B Influenza Type B (RT-PCR) Neg for Influ B White Blood Count 15.20 K/uL Red Blood Count 5.04 M/uL Hemoglobin 16.1 g/dL Hematocrit 48.6 % Mean Corpuscular Volume 96.4 fL Mean Corpuscular Hemoglobin 31.9 pg Mean Corpuscular Hemoglobin Concent 33.1 g/dl Platelet Count 173 K/uL Mean Platelet Volume 10.5 fL Neutrophils (%) (Auto) 95.0 % Lymphocytes (%) (Auto) 1.4 % Monocytes (%) (Auto) 3.0 % Eosinophils (%) (Auto) 0.3 % Basophils (%) (Auto) 0.1 % Neutrophils # (Auto) 14.44 K/uL Lymphocytes # (Auto) 0.21 K/uL Monocytes # (Auto) 0.46 K/uL Eosinophils # (Auto) 0.05 K/uL Basophils # (Auto) 0.01 K/uL RDW Standard Deviation 51.4 fL RDW Coefficient of Variation 14.6 % Immature Granulocyte % (Auto) 0.2 % Immature Granulocyte # (Auto) 0.03 K/uL Sodium Level 137 mmol/L Potassium Level 4.2 mmol/L Chloride Level 98 mmol/L Carbon Dioxide Level 29 mmol/L Anion Gap 10.0 mmol/L Blood Urea Nitrogen 15 mg/dl Creatinine 1.20 mg/dl Est Creatinine Clear Calc Drug Dose 74.1 ml/min Estimated GFR () 72.6 Estimated GFR (Non- 62.6 BUN/Creatinine Ratio 12.6 Random Glucose 109 mg/dl Calcium Level 9.0 mg/dl Total Bilirubin 1.8 mg/dl Aspartate Amino Transf (AST/SGOT) 22 U/L Alanine Aminotransferase (ALT/SGPT) 56 U/L Alkaline Phosphatase 85 U/L Total Creatine Kinase 90 U/L Creatine Kinase MB 1.5 ng/ml Creatine Kinase MB Ratio 1.7 Troponin I < 0.015 ng/ml Total Protein 7.9 gm/dl Albumin 4.2 gm/dl Globulin 3.7 gm/dl Albumin/Globulin Ratio 1.1 Bedside Lactic Acid Venous 3.14 mmol/L Arterial Blood pH 7.49 Arterial Blood Partial Pressure CO2 30 mmHg Arterial Blood Partial Pressure O2 64 mm/Hg Arterial Blood HCO3 22 mmol/L Arterial Blood Oxygen Saturation 92.8 % Arterial Blood Base Excess 0.2 mEq/L Arterial Blood Gas Delivery 8 L Tong Test POS Test 02/11/17 04:25 White Blood Count 15.60 K/uL Red Blood Count 4.35 M/uL Hemoglobin 13.9 g/dL Hematocrit 41.2 % Mean Corpuscular Volume 94.7 fL Mean Corpuscular Hemoglobin 32.0 pg Mean Corpuscular Hemoglobin Concent 33.7 g/dl Platelet Count 124 K/uL Mean Platelet Volume 10.4 fL Neutrophils (%) (Auto) 95.4 % Lymphocytes (%) (Auto) 2.1 % Monocytes (%) (Auto) 2.0 % Eosinophils (%) (Auto) 0.1 % Basophils (%) (Auto) 0.1 % Neutrophils # (Auto) 14.90 K/uL Lymphocytes # (Auto) 0.32 K/uL Monocytes # (Auto) 0.31 K/uL Eosinophils # (Auto) 0.01 K/uL Basophils # (Auto) 0.01 K/uL RDW Standard Deviation 50.4 fL RDW Coefficient of Variation 14.4 % Immature Granulocyte % (Auto) 0.3 % Immature Granulocyte # (Auto) 0.05 K/uL Sodium Level 137 mmol/L Potassium Level 4.3 mmol/L Chloride Level 104 mmol/L Carbon Dioxide Level 24 mmol/L Anion Gap 9.0 mmol/L Blood Urea Nitrogen 16 mg/dl Creatinine 1.00 mg/dl Est Creatinine Clear Calc Drug Dose 82.1 ml/min Estimated GFR () 90.5 Estimated GFR (Non- 78.1 BUN/Creatinine Ratio 16.2 Random Glucose 154 mg/dl Calcium Level 8.2 mg/dl Magnesium Level 2.7 mg/dl Total Creatine Kinase 52 U/L Creatine Kinase MB 0.6 ng/ml Creatine Kinase MB Ratio 1.2 Troponin I < 0.015 ng/ml Diagnostic Results [~ rep ct add3]] SINGLE VIEW CHEST CLINICAL HISTORY: Dyspnea. FINDINGS: 2 AP, portable, upright chest radiographs are compared to study dated 01/23/2017 and correlated with chest CT dated 01/29/2017. The examination is degraded by portable technique and apical lordotic positioning. The cardiomediastinal silhouette is unremarkable. Advanced emphysema and chronic interstitial thickening are similar to previous. There is biapical scarring. No airspace consolidation or large pleural effusion is identified. There is bibasilar atelectasis versus scarring, similar to previous. No pneumothorax is seen. The skeletal structures are osteopenic. The bony thorax is grossly intact. IMPRESSION: Advanced emphysema with no acute cardiopulmonary abnormality. Electronically signed by: Moy Hidalgo M.D. 02/10/2017 6:43 PM Dictated Date/Time: 02/10/2017 6:41 PM Assessment and Plan Hypoxia/COPD exacerbation/chronic bronchitis/failure of outpatient treatment-- the patient will be admitted to the telemetry unit. He will be placed on Solu- Medrol 40 mg IV every 6 hours, vancomycin IV per renal dosing, Zosyn 3.375 mg IV every 6 hours, levofloxacin 500 mg IV daily, guaifenesin extended release 600 mg by mouth twice a day, Xopenex/Atrovent high flow nebulizers every 6 hours while awake and every 2 hours when necessary, and nasal cannula 2 L of oxygen titrating to keep pulse ox greater than or equal to 92%. We will hold Symbicort, DuoNeb's, prednisone and Spiriva. Pt currently not on home oxygen. Will assess need for home oxygen at the time of discharge. Sinus tachycardia : Improved. Rates in the 70's. Hypothyroidism--continue levothyroxine sodium 88 g by mouth every afternoon. GERD--change omeprazole 20 mg by mouth every morning to pantoprazole 40 mg by mouth every morning. Insomnia--continue zolpidem tartrate 10 mg by mouth at bedtime. Diarrhea--continue loperamide 2 mg by mouth twice a day. Vitamin B-12 deficiency--continue supplement 100 g by mouth daily. Continue Imuran 50 mg by mouth daily.
[2017-02-11] MEDS: COLESTIPOL HCL 1 GM TAB PO SCH ×2 (10:03→21:52)
[2017-02-11 12:38] LABS: CKMB/CK RATIO 1.6 (0-3.0)
[2017-02-11] MEDS: VANCOMYCIN INJ 1,450 MG in SODIUM CHLORIDE 0.9% 500ML 500 ML IV SCH (14:18)
[2017-02-11] MEDS: LEVOFLOXACIN / D5W 500 MG in PREMIXED IN D5W 100 ML IV SCH (18:41)
[2017-02-11] MEDS: ZOLPIDEM TARTRATE 10 MG TAB PO SCH (21:52)
[2017-02-12] VITALS (10 sets, daily range): BP systolic 127–149; BP diastolic 66–74; PULSE 74–90; TEMP 36.3–36.9; O2SAT 91–96
[2017-02-12] MEDS: VANCOMYCIN INJ 1,450 MG in SODIUM CHLORIDE 0.9% 500ML 500 ML IV SCH (01:55)
[2017-02-12] MEDS: LEVALBUTEROL 1.25MG/0.5ML NEB INH SCH ×4 (02:06→20:47)
[2017-02-12] MEDS: IPRATROPIUM BROMIDE NEB SOLN 0.02% 2.5 ML VIAL INH SCH ×4 (02:06→20:47)
[2017-02-12 05:33] LABS: COMPLETE YES; HEMATOCRIT 41.1 % (42-52); IG% 0.6 %; LYMPH % 2.1 %; LYMPH ABS # 0.34 K/uL (1.2-3.4); MEAN CELL VOLUME 96.5 fL (80-100); MEAN CORPUSCULAR HEMOGLOBIN 32.4 pg (25-34); MEAN CORPUSCULAR HGB CONC 33.6 g/dl (32-36); MEAN PLATELET VOLUME 10.6 fL (7.4-10.4); NEUT % 96.3 %; PLATELET COUNT 141 K/uL (130-400); RED BLOOD COUNT 4.26 M/uL (4.7-6.1); WHITE BLOOD COUNT 16.04 K/uL (4.8-10.8)
[2017-02-12 06:00] LABS: BUN/CREATININE RATIO 16.5 (10-20); CALCIUM 8.4 mg/dl (8.5-10.1); CREATININE 0.99 mg/dl (0.60-1.40); MAGNESIUM 2.5 mg/dl (1.8-2.4); POTASSIUM 4.6 mmol/L (3.5-5.1)
[2017-02-12] MEDS: LEVOTHYROXINE 88 MCG TAB PO SCH (06:08)
[2017-02-12] MEDS: METHYLPREDNISOLONE IV 40 MG in SYRINGE 0 ML IV SCH ×4 (06:08→23:04)
[2017-02-12] MEDS: LACTOBACILLUS ACIDOPHILUS (FLORANEX) TAB PO SCH ×3 (07:41→18:23)
[2017-02-12] MEDS: PIPERACILL/TAZOBAC IV 3.375 GM in DEXTROSE 5% 100ML 100 ML IV SCH ×3 (07:43→23:04)
[2017-02-12] MEDS: DILTIAZEM HCL 30 MG TAB PO SCH ×4 (09:07→21:03)
[2017-02-12] MEDS: MULTIVITAMIN TAB PO SCH (09:07)
[2017-02-12] MEDS: PANTOprazole SOD 40 MG TAB PO SCH (09:07)
[2017-02-12] MEDS: CYANOCOBALAMIN 100 MCG TAB (VIT B-12) PO SCH (09:07)
[2017-02-12] MEDS: LOPERAMIDE HCL 2 MG CAP PO SCH ×2 (09:08→21:07)
[2017-02-12] MEDS: AZATHIOPRINE 50 MG TAB PO SCH (09:08)
[2017-02-12] MEDS: GUAIFENESIN 600 MG TABCR PO SCH ×2 (09:08→21:03)
[2017-02-12] MEDS: COLESTIPOL HCL 1 GM TAB PO SCH ×2 (10:43→21:04)
--- NOTE | 2017-02-12 10:46 | Hospitalist Progress Note ---
Hospitalist Progress Note Date of Service February 12, 2017. Subjective Pt evaluation today including: conversation w/ patient, conversation w/ family , physical exam, chart review, lab review, review of studies Pain: none PO Intake: good Voiding: no voiding problems The patient was seen and examined this morning. Pt is present at bedside, Marina. The patient reports that he has been feeling short of breath, he says that even with getting up at the bedside to urinate he feels SOB. The patient admits to a cough which is mostly nonproductive, occasionally with white sputum. He denies any chest pain or chest tightness. This has been ongoing for about a month and a half. Again denies any sick contacts. The patient was found to see his sister in [place] from January 14 through the who is suffering from cancer and is very ill. Patient denies any fevers, sweats, or chills overnight. He is still requiring oxygen, on1 L O2 tenderness which has been titrated down from 4L.Last bowel movement was yesterday and was normal formed and brown. Additional Comments: Constitutional: No fever, sweats or chills Eyes: No diplopia, no worsening or blurred vision ENT: normal hearing, no trouble swallowing Respiratory: No cough, sputum, dyspnea at rest or on exertion Cardiovascular: + requiring O2, +cough with occasional white sputum, positive shortness of breath with minimal exertion. + Pain with cough in chest wall Abdomen: No pain, nausea, vomiting, diarrhea or constipation Musculoskeletal: No joint pain, calf pain, swelling Neurologic: No weakness, numbness/tingling, or balance problems Psychiatric: No anxiety or depression Skin: No rash or itch Objective Vital Signs Date Time Temp Pulse Resp B/P Pulse Ox O2 Delivery O2 Flow Rate FiO2 02/12/17 08:12 36.4 84 28 149/74 96 Nasal Cannula 2.0 02/12/17 07:30 96 Nasal Cannula 2.0 02/12/17 07:30 86 20 95 Nasal Cannula 2.0 02/12/17 04:34 36.5 90 22 127/73 94 Nasal Cannula 2.0 02/12/17 04:00 Nasal Cannula 2.0 02/12/17 02:06 89 20 94 Nasal Cannula 2.0 02/12/17 00:02 Nasal Cannula 2.0 02/11/17 23:58 36.4 78 20 122/68 93 Nasal Cannula 2.0 02/11/17 20:00 Nasal Cannula 2.0 02/11/17 19:05 87 20 94 Nasal Cannula 2.0 02/11/17 18:56 36.5 69 18 131/68 94 Nasal Cannula 2.0 02/11/17 16:00 Room Air 02/11/17 15:13 36.6 69 18 126/63 94 Nasal Cannula 2.0 02/11/17 14:05 76 20 96 Nasal Cannula 2.0 02/11/17 12:57 36.9 74 20 139/70 92 Nasal Cannula 2.0 02/11/17 12:00 Room Air Physical Exam Notes: General: awake, alert, no apparent distress Head: Normocephalic, atraumatic ENT: PERRL, EOMI, no pharyngeal exudate, mucous membranes moist Chest: + 2L O2 Via NC, +coarse breath sounds throughout, positive rhonchi and expiratory wheeze, + cough without sputum production. Cardiac: Regular rate and rhythm, no murmur, no JVD, normal peripheral pulses, good capillary refill Abdominal: NABS x 4 quadrants, soft, nontender to palpation, no rebound, guarding or tenderness Extremities: Normal inspection, no peripheral edema or erythema, calfs nontender to palpation Psych: Normal mood and affect Neuro: AAO x 3, strength intact bilaterally and related 5/5, no motor deficits, speech is clear, no peripheral sensory deficits Laboratory Results Last 24 Hours Test 02/11/17 12:00 02/12/17 05:05 Total Creatine Kinase 43 U/L Creatine Kinase MB 0.7 ng/ml Creatine Kinase MB Ratio 1.6 Troponin I < 0.015 ng/ml White Blood Count 16.04 K/uL Red Blood Count 4.26 M/uL Hemoglobin 13.8 g/dL Hematocrit 41.1 % Mean Corpuscular Volume 96.5 fL Mean Corpuscular Hemoglobin 32.4 pg Mean Corpuscular Hemoglobin Concent 33.6 g/dl Platelet Count 141 K/uL Mean Platelet Volume 10.6 fL Neutrophils (%) (Auto) 96.3 % Lymphocytes (%) (Auto) 2.1 % Monocytes (%) (Auto) 1.0 % Eosinophils (%) (Auto) 0.0 % Basophils (%) (Auto) 0.0 % Neutrophils # (Auto) 15.45 K/uL Lymphocytes # (Auto) 0.34 K/uL Monocytes # (Auto) 0.16 K/uL Eosinophils # (Auto) 0.00 K/uL Basophils # (Auto) 0.00 K/uL RDW Standard Deviation 52.9 fL RDW Coefficient of Variation 15.0 % Immature Granulocyte % (Auto) 0.6 % Immature Granulocyte # (Auto) 0.09 K/uL Sodium Level 136 mmol/L Potassium Level 4.6 mmol/L Chloride Level 103 mmol/L Carbon Dioxide Level 27 mmol/L Anion Gap 6.0 mmol/L Blood Urea Nitrogen 16 mg/dl Creatinine 0.99 mg/dl Est Creatinine Clear Calc Drug Dose 82.9 ml/min Estimated GFR () 91.6 Estimated GFR (Non- 79.0 BUN/Creatinine Ratio 16.5 Random Glucose 146 mg/dl Calcium Level 8.4 mg/dl Magnesium Level 2.5 mg/dl Assessment and Plan This is a 66 yo M with pmhx of COPD, Hypothyroidism, GERD, insomnia, Crohns disease/IBS presenting to the ED with Hypoxia/COPD exacerbation/chronic bronchitis/failure of outpatient treatment. COPD exacerbation Acute bronchitis - Continue IV Solu-Medrol 40 mg IV every 6 hours, patient was on prednisone prior to admission which has been held. - WBC remains elevated with left shift - Continue IV antibiotics with vancomycin, Zosyn, Levaquin (day#2) - Can continue supportive treatment with Mucinex, Xopenex/Atrovent high flow nebulizers QID and Q2H prn - O2 titrated as able,currently on 1L O2 via NC. Goal O2 sats = 88-92% - Hold Symbicort, DuoNeb's, and Spiriva. Sinus tachycardia with rate dependent ST segment depression in inferolateral leads - Cardiac enzymes trended negative 3 - Repeat EKG 02/12 was obtained and appears to be in normal sinus rhythm currently. - D/c amlodipine 5 mg PO daily, and instead continue patient on Cardizem 30 mg PO Q6H Hypothyroidism -continue levothyroxine sodium 88 g by mouth every afternoon. GERD - Cont pantoprazole 40 mg PO daily. Insomnia - continue zolpidem tartrate 10 mg QHS Crohns disease, hx Diarrhea -continue loperamide 2 mg by mouth twice a day. Currently bowels are normal, last BM was yesterday - Continue Imuran 50 mg PO daily Vitamin B-12 deficiency -continue supplement 100 g by mouth daily. CODE STATUS: Full code Disposition: Patient from home plan to return when medically stable likely in ~ 2 days
[2017-02-12] MEDS ORDERED: PERFLUTREN LIPID MICROSPHERE (DEFINITY) IV ONE (13:40)
--- NOTE | 2017-02-12 16:54 | ECHOCARDIOGRAM REPORT ---
*NOTICE TO RECEIVING [facility] This information is strictly Confidential and protected under [place] law. [place] law prohibits you from making any further disclosure of this information unless further disclosure is expressly permitted by the written consent of the person to whom it pertains or is authorized by law. A general authorization for the release of medical or other information is not sufficient for this purpose. Hospital accepts no responsibility if the information is made available to any other person, INCLUDING THE PATIENT. Interpretation Summary * Name: CHARLES TORRES Study Date: 02/12/2017 12:41 PM BP: 133/66 mmHg * Patient Location: .2T\S\S238\S\1 HR: 78 * : 1950 (M/d/yyyy) Gender: Male Height: 73 in * Age: 66 yrs Ethnicity: CA Weight: 214 lb * Ordering Physician: Antonio Munoz * Performed By: Yvonne Haley * * Reason For Study: CHF * BSA: 2.2 m2 * -- Conclusions -- * 1. Normal left ventricular size with hyperdynamic systolic function. EF 65-70%. No regional wall motion abnormalities. No left ventricular hypertrophy. Type 1 diastolic dysfunction. * 2. No significant valvular abnormalities visualized. * 3. No significant change from prior study on 07/12/2007. Procedure Details * A complete two-dimensional transthoracic echocardiogram was performed (2D, M-mode, Doppler and color flow Doppler). * A contrast injection of Definity was performed to improve assessment of LV function. * Contrast was injected into an intravenous site in the left arm. * One vial of Definity ultrasound contrast was diluted in normal saline to a total volume of 10 ml. A total of '3' ml of solution was administered during imaging. * Lot # [id number] of Definity utilized for procedure. * Expiration date 01/16. * The attending nurse who injected the contrast agent was JACKLYN PALOMARES RN. Left Ventricle * Normal left ventricular size with hyperdynamic systolic function. EF 65-70%. No regional wall motion abnormalities. No left ventricular hypertrophy. Type 1 diastolic dysfunction. Right Ventricle * The right ventricle is normal in size and function. * The right ventricular systolic function is normal as assessed by tricuspid annular plane systolic excursion (TAPSE) (normal >1.5 cm). Atria * The left atrial size is normal. * Right atrial size is normal. * There is no evidence of atrial septal defect, but resolution does not allow assessment for a patent foramen ovale. Mitral Valve * The mitral valve is grossly normal. * There is no mitral valve stenosis. * Significant mitral regurgitation is absent. Tricuspid Valve * The tricuspid valve is not well visualized, but is grossly normal. * There is no tricuspid stenosis. * There is trace tricuspid regurgitation. Aortic Valve * The aortic valve is trileaflet. * No hemodynamically significant valvular aortic stenosis. * No aortic regurgitation is present. Pulmonic Valve * The pulmonary valve is inadequately visualized, but the Doppler data is adequate for interpretation. * There is no pulmonic valvular stenosis. * There is no significant pulmonary regurgitation. Great Vessels * The aortic root is normal size. * Ascending aorta of normal dimension Pericardium/Pleural * There is no pericardial effusion. Great Vessels * Mildly dilated IVC with normal inspiratory collapse. MMode 2D Measurements and Calculations IVSd 0.78 cm IVSs 1.4 cm LVIDd 4.8 cm LVIDs 2.9 cm LVPWd 0.96 cm LVPWs 1.9 cm IVS/LVPW 0.81 FS 40.5 % EDV(Teich) 109.8 ml ESV(Teich) 31.7 ml EF(Teich) 71.1 % EDV(cubed) 113.6 ml ESV(cubed) 23.9 ml EF(cubed) 79.0 % % IVS thick 77.1 % % LVPW thick 98.8 % LV mass(C)d 142.8 grams LV mass(C)dI 64.5 grams/m\S\2 LV mass(C)s 175.1 grams LV mass(C)sI 79.1 grams/m\S\2 CO(Teich) 6.5 l/min CI(Teich) 2.9 l/min/m\S\2 SV(Teich) 78.1 ml SI(Teich) 35.3 ml/m\S\2 CO(cubed) 7.4 l/min CI(cubed) 3.4 l/min/m\S\2 SV(cubed) 89.7 ml SI(cubed) 40.5 ml/m\S\2 Ao root diam 3.4 cm Ao root area 9.1 cm\S\2 ACS 1.7 cm asc Aorta Diam 3.0 cm LVOT diam 2.0 cm LVOT area 3.3 cm\S\2 LVAd ap4 24.5 cm\S\2 LVLd ap4 7.2 cm EDV(MOD-sp4) 68.8 ml LVAs ap4 11.9 cm\S\2 LVLs ap4 5.6 cm ESV(MOD-sp4) 21.2 ml EF(MOD-sp4) 69.2 % LVAd ap2 37.6 cm\S\2 LVLd ap2 9.1 cm EDV(MOD-sp2) 127.0 ml LVAs ap2 18.1 cm\S\2 LVLs ap2 7.2 cm ESV(MOD-sp2) 37.5 ml EF(MOD-sp2) 70.5 % CO(MOD-sp4) 4.0 l/min CI(MOD-sp4) 1.8 l/min/m\S\2 SV(MOD-sp4) 47.6 ml SI(MOD-sp4) 21.5 ml/m\S\2 CO(MOD-sp2) 7.4 l/min CI(MOD-sp2) 3.4 l/min/m\S\2 SV(MOD-sp2) 89.5 ml SI(MOD-sp2) 40.4 ml/m\S\2 Doppler Measurements and Calculations MV E max rukhsana 86.8 cm/sec MV A max rukhsana 102.8 cm/sec MV E/A 0.84 MV dec time 0.29 sec Ao V2 max 162.9 cm/sec Ao max PG 10.6 mmHg Ao max PG (full) 3.1 mmHg ROLA(V,A) 2.8 cm\S\2 ROLA(V,D) 2.8 cm\S\2 LV V1 max PG 7.5 mmHg LV V1 max 136.8 cm/sec TV E max rukhsana 60.6 cm/sec PA V2 max 76.6 cm/sec PA max PG 2.3 mmHg RAP systole 8.0 mmHg
--- NOTE | 2017-02-12 17:33 | Pulmonary Consultation ---
History General Date of Service: February 12, 2017. Stated Complaint: Hypoxia,Sinus Tachycardia Seen On Clinical Medical Transcriptionist HPI The patient is a 66 year old male who presents to [facility] with complaints of Hypoxia,Sinus Tachycardia Seen On Clinical Medical Transcriptionist. The patient's primary care provider is Jocelyne Cook M.D.. 66y/o male admitted secondary to increasing dyspnea especially over the previous 24 hours with associated chills and hypertension. Patient notes a chronic cough which appears productive for the last 6-8 weeks. He has noted some intermittent chills during this time as well. 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 Denies: recent travel, sick exposures, chest pain, nausea or vomiting, generalized myalgias or arthralgias, night sweats, unintentional weight loss, pleurisy or classic cardiac chest pain PmHx is significant for: Crohn's disease (treatment with Azathioprine), diverticulosis, hypothyroidism, ADELAIDA (intolerant of CPAP), former smoker (40 ppd hx quit 2003) and HTN. He initially started to se Dr. Agustin Velazco following a LLL pneumonia in May 2016. PFTs performed July 2016 had normal spirometry (GOLD standards) with a moderately decreased diffusion. The patient was hospitalized from 12/12- secondary to influenza A and a possible COPD exacerbation. His symptoms improved slightly while admitted but have not completely cleared. Since D/C he has been evaluated at [facility] on 2 separate occasions. He was last evaluated on 01/25/2017 and prescribed doxycycline 100 mg b.i.d. and prednisone starting at 60 mgs x3 days tapering to 40 mgs x3 days. He also continued Symbicort 2 puffs b.i.d. and DuoNeb 3-4x's/ day. A chest CT on 01/29/17 showed emphysema, mild cylindrical bronchiectasis and dependent RLL atelectasis/consolidation. Work-up: WBC: 16K (Neuto-96%) H/H: 14/41 Total Bili: 1.8 Carbon Dioxide: 29 BUN/Cr: 16/0.99 Influ A & B (PCR): negative POC Lactic Acid Sage: > 3.14 AB.49/30/64/22 (8L) EKG: (02/10/17--1805) sinus tachycardia 117, LVH, possible ST elevation in V3-V4 EKG: (02/12/17--0633)NSR with rate 70 Microbiology: No growth to date CXR: (02/10/2017) emphysematous changes with R>L hilar fullness and cephalization CT Thorax (01/29/2017) compared to CT thorax (01/24/2011) Diffuse emphysema New RLL bronchiectasis changes with atelectasis of the posterior sub segment Cardiac Echo (02/12/2017) LV: EF=65-70%, RV: WNL, TAPSE > 1.5cm Treatments: I/Os: -1.4L O2: 2L nc Levaquin 500mg QD Azathioprine 50mg QD Levothyroxine 88mcg QD Xopenex NEB Q6 Atrovent Neb Zosyn Solu-Medrol 40mg Q6 Mucinex PFT (07/21/16) Pre POST % FEV1/FVC: 72 72 0 FEV1: 2.88/74% 2.96/76% +2 FVC: 3.98/78% 4.10/80% +3 25-75% 95% 94% T.61/86% SVC: 3.89/76% DLCO: 45% DL/VA: 56% Stress Echocardiogram (03/24/2011) Negative stress echo without evidence of ischemia at 81% of maximum No arrhythmias Echo-Cardiogram (07/12/07) LV: EF=55%, augments WNL with stress RV: WNL Historian: patient, EMS Review of Systems Constitutional: reports: as stated in HPI Eyes: reports: no symptoms ENT: reports: no symptoms Cardiovascular: reports: no symptoms Respiratory: reports: as stated in HPI Gastrointestinal: reports: no symptoms Genitourinary - Male: reports: no symptoms Musculoskeletal: reports: no symptoms Integumentary: reports: no symptoms Neurologic: reports: no symptoms Psychiatric: reports: no symptoms Endocrine: no symptoms Hematologic / Lymphatic: no symptoms Allergic / Immunologic: no symptoms Past Medical History Past Medical History: 1. CAP (community acquired pneumonia) 2. Chronic obstructive pulmonary disease 3. COPD exacerbation 4. Crohn's disease 5. Diverticulosis 6. Hypothyroidism 7. Obstructive sleep apnea (intolerant to the CPAP mask) 8. LLL pneumonia Past Surgical History: Patient notes noncontributory Family History FH: cancer FH: hypertension Cardiac issues, exact disease is unknown by the patient Social History Hx Tobacco Use In Past Year?: No (quit 15 years ago) Smoking Status: Former Smoker Marital status: Housing status: lives with family Occupational Status: retired History of MDRO History of MDRO: No Allergies Coded Allergies: No Known Allergies (Unverified , 12/12/16) Current Medications Reported Home Medications Medications Dose Route/Sig Max Daily Dose Days Date Category Dose Instructions Prilosec (Omeprazole) 20 Mg Cap 20 Mg PO QAM 02/10/17 Reported Symbicort 160/4.5 Inhaler (Budesonide/Formoterol Fumarate) 120 Puffs/ Aero 2 Puff INH BID 02/10/17 Reported Duoneb (Ipratropium-Albuterol) 3 Ml Nebu 1 Treatment INH TID 02/10/17 Reported Proventil 0.083% 2.5MG/3ML (Albuterol Sulf) 2.5 Mg/3 Ml Nebu 2.5 Mg INH Q4 PRN 02/10/17 Reported Prednisone 20 Mg Tab 40 Mg PO BID 12/13/16 Rx take 40 mg two times daily for 1 day then take 40 mg once daily for 1 days then take 20 mg once daily for 2 days then take 10mg one daily for 2 days then stop Proair Respiclick (Albuterol Sulfate) 108 Mcg/Act Aer 2 Puffs INH QID PRN 12/12/16 Reported Spiriva Handihaler (Tiotropium Maxbass) 5 Puff/90 Mcg Aerp 1 Puff INH QAM 12/12/16 Reported Loperamide HCl 2 Mg Cap 2 Mg PO BID 12/12/16 Reported Colestipol Hcl 1 Gm Tab 1 Gm PO BID 12/12/16 Reported [place] 5MG/325MG (Acetaminophen/Hydrocodone Bitart) Tab 1 Tablet PO Q4H PRN 05/31/16 Reported PRN PAIN Synthroid (Levothyroxine Sodium) 88 Mcg Tab 88 Mcg PO QPM 05/31/16 Reported Multivitamin (Multivitamins) Tab 1 Tab PO DAILY 05/31/16 Reported Imuran (Azathioprine) 50 Mg Tab 50 Mg PO DAILY 05/31/16 Reported Norvasc (Amlodipine Besylate) 5 Mg Tab 5 Mg PO DAILY 05/31/16 Reported Ambien (Zolpidem Tartrate) 10 Mg Tab 10 Mg PO HS 05/31/16 Reported Vitamin B-12 (Cyanocobalamin) 100 Mcg Tab 100 Mcg PO DAILY 05/31/16 Reported Physical Physical Exam Vital Signs: Date Time Temp Pulse Resp B/P Pulse Ox O2 Delivery O2 Flow Rate FiO2 02/12/17 15:12 36.5 88 18 130/73 91 Nasal Cannula 2.0 02/12/17 14:26 83 20 93 Nasal Cannula 1.0 02/12/17 13:56 76 144/66 02/12/17 12:15 Nasal Cannula 1.0 02/12/17 11:44 36.3 78 24 133/66 92 Nasal Cannula 2.0 02/12/17 08:12 36.4 84 28 149/74 96 Nasal Cannula 2.0 02/12/17 07:30 96 Nasal Cannula 2.0 02/12/17 07:30 86 20 95 Nasal Cannula 2.0 02/12/17 04:34 36.5 90 22 127/73 94 Nasal Cannula 2.0 02/12/17 04:00 Nasal Cannula 2.0 02/12/17 02:06 89 20 94 Nasal Cannula 2.0 02/12/17 00:02 Nasal Cannula 2.0 02/11/17 23:58 36.4 78 20 122/68 93 Nasal Cannula 2.0 02/11/17 20:00 Nasal Cannula 2.0 02/11/17 19:05 87 20 94 Nasal Cannula 2.0 02/11/17 18:56 36.5 69 18 131/68 94 Nasal Cannula 2.0 General Appearance: mild distress Head: NORMOCEPHALIC, ATRAUMATIC Eyes: PERRLA, NO DISCHARGE, EOMI, SCLERAE NORMAL, CONJUNCTIVAE NORMAL ENT: NORMAL EAR EXAM, NORMAL NASAL EXAM, NORMAL MOUTH EXAM, NORMAL THROAT EXAM , NORMAL DENTAL EXAM Neck: NORMAL RANGE OF MOTION, NO TENDERNESS, TRACHEA MIDLINE, NO STRIDOR, other (1+ JVD) Respiratory: other (crackles bilaterally greatest at the bases/thoracic ultrasound showing B-lines globally even at the apices) Cardiovasular: REGULAR RATE/RHYTHM, NORMAL S1S2, NO M/G/R, NO MURMUR, NO GALLOP Abdomen: NON TENDER, NORMAL BOWEL SOUNDS, NO REBOUND, NO MASSES, NO GUARDING, NO ORGANOMEGALY Genitourinary - Male: EXTERNAL GENITALIA NORMAL Back: NORMAL INSPECTION, NO MIDLINE TENDERNESS, NO CVA TENDERNESS, NO PARAVERTEBRAL TTP Upper Extremities: NO EDEMA, NO DEFORMITY, NORMAL ROM Lower Extremities: NO EDEMA, NO DEFORMITY, NORMAL ROM Pulses: carotid (R) (1+), carotid (L) (1+), dorsalis pedis (R) (2+), dorsalis pedis (L) (2+) Neuro: ALERT, ORIENTED x 3, NORMAL MOTOR EXAM, NORMAL SENSATION, NORMAL CEREBELLAR EXAM, NORMAL SPEECH Reflexes: biceps (R) (2+), bicpes (L) (2+), achilles (R) (1+), achilles (L) (1+ ) Babinski Testing: right (downgoing), left (downgoing) Psychiatric: NORMAL AFFECT, NO SUICIDAL IDEATION, CONTRACTS FOR SAFETY Diagnostics Labs Results Past 24 Hours Test 02/12/17 05:05 Range/Units White Blood Count 16.04 4.8-10.8 K/uL Red Blood Count 4.26 4.7-6.1 M/uL Hemoglobin 13.8 14.0-18.0 g/dL Hematocrit 41.1 42-52 % Mean Corpuscular Volume 96.5 80-100 fL Mean Corpuscular Hemoglobin 32.4 25-34 pg Mean Corpuscular Hemoglobin Concent 33.6 32-36 g/dl Platelet Count 141 130-400 K/uL Mean Platelet Volume 10.6 7.4-10.4 fL Neutrophils (%) (Auto) 96.3 % Lymphocytes (%) (Auto) 2.1 % Monocytes (%) (Auto) 1.0 % Eosinophils (%) (Auto) 0.0 % Basophils (%) (Auto) 0.0 % Neutrophils # (Auto) 15.45 1.4-6.5 K/uL Lymphocytes # (Auto) 0.34 1.2-3.4 K/uL Monocytes # (Auto) 0.16 0.11-0.59 K/uL Eosinophils # (Auto) 0.00 0-0.5 K/uL Basophils # (Auto) 0.00 0-0.2 K/uL RDW Standard Deviation 52.9 36.4-46.3 fL RDW Coefficient of Variation 15.0 11.5-14.5 % Immature Granulocyte % (Auto) 0.6 % Immature Granulocyte # (Auto) 0.09 0.00-0.02 K/uL Sodium Level 136 136-145 mmol/L Potassium Level 4.6 3.5-5.1 mmol/L Chloride Level 103 98-107 mmol/L Carbon Dioxide Level 27 21-32 mmol/L Anion Gap 6.0 3-11 mmol/L Blood Urea Nitrogen 16 7-18 mg/dl Creatinine 0.99 0.60-1.40 mg/dl Est Creatinine Clear Calc Drug Dose 82.9 ml/min Estimated GFR () 91.6 Estimated GFR (Non- 79.0 BUN/Creatinine Ratio 16.5 10-20 Random Glucose 146 70-99 mg/dl Calcium Level 8.4 8.5-10.1 mg/dl Magnesium Level 2.5 1.8-2.4 mg/dl Microbiology Results 02/12/17 MRSA DNA Surveillance Screen - Final, Complete Specimen Negative for MRSA by DNA Probe Diagnostic Radiology CXR: (02/10/2017) emphysematous changes with R>L hilar fullness and cephalization EKG EKG: (02/10/17--1805) sinus tachycardia 117, LVH, possible ST elevation in V3-V4 EKG: (02/12/17--0633) NSR with rate 70 Impression Assessment and Plan 66-year-old gentleman admitted with refractory cough and hypoxemia with associated dyspnea: #1 Cough: Patient has had a chronic cough with increasing sputum production over the last 6-8 weeks. Initially his symptoms never resolved sentences admission last year with influenza. He is undergone multiple antibiotic courses since steroid courses with minimal relief. He has a CT the thorax from 01/29/2017 showing dramatic changes in the right lower lobe bronchiectatic in nature from . 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 Obtain: QuantiFERON Gold and 3 morning sputums for AFB analysis. I will also increase his Levaquin dosing to 750 mg IV daily. The patient may require bronchoscopy in the future. The patient her pulmonary function test on 07/21/2016 with no signs of COPD via GOLD criteria and only moderate COPD via ATS criteria: I suggest we continue his current IV steroids, nebulizers and antibiotics. I should note it might be difficult for AFB analysis as the patient is currently on Levaquin. #2 Hypoxemia: Patient's hypoxemia on his ABG had a PaO2 of 64 while being treated with 8 L nasal cannula. This is out of proportion to his pulmonary function tests and CT of the thorax. The ultrasonic evaluation of this thorax did show B-lines globally even at the apices suggesting intraparenchymal fluid and possible diastolic heart failure. I suggest we continue to diuresis patient. I will also send this patient for CT angiogram of the chest for rule out a pulmonary embolism.
[2017-02-12] MEDS: LEVOFLOXACIN / D5W 500 MG in PREMIXED IN D5W 100 ML IV SCH (18:49)
[2017-02-12] MEDS ORDERED: OPTIRAY 320 IV PRN (20:45)
--- NOTE | 2017-02-12 20:53 | DIAGNOSTIC IMAGING REPORT ---
CT ANGIOGRAM OF THE CHEST CLINICAL HISTORY: Hypoxia. Tachycardia. COMPARISON STUDY: Chest CT dated 01/29/2017 and 07/11/2017. Chest x-ray dated 02/10/2017. TECHNIQUE: Following the IV administration of 87 cc of Optiray 320, CT angiogram of the chest was performed from the upper abdomen to the thoracic aorta is visualized in the pulmonary embolus protocol. Images are reviewed in the axial, sagittal, and coronal planes. 3-D MIPS images are created and assessed. IV contrast was administered without complication. CT DOSE: 529.65 mGy.cm FINDINGS: Thyroid: Atrophic. Thoracic aorta: There is mild atherosclerotic calcification of the thoracic aorta, which is normal in caliber and demonstrates standard 3-vessel arch anatomy. No dissection is seen. Pulmonary vasculature: The pulmonary trunk is normal in caliber. There are no filling defects in the main, lobar, or segmental pulmonary arteries to indicate pulmonary embolus. Heart: The heart is normal in size and configuration, and there is a small pericardial effusion. There are scattered coronary artery calcifications. Lungs and pleural spaces: There is advanced emphysema and mild apical scarring. There is patchy airspace consolidation at both lung bases, new from 01/29/2017. No pleural effusion is identified. Mild bronchiectasis is again noted at the right lung base. A calcified granuloma is noted at the left lung base. Fluid/secretions are present within the lower lobe airways bilaterally. The trachea and central airways are clear. Mediastinum: There is no mediastinal lymphadenopathy. Alyse: Clear. Axillae: There is no axillary lymphadenopathy. Upper abdomen: Partially visualized upper abdominal viscera is within normal limits. Skeletal structures: The skeletal structures are osteopenic. Degenerative change is noted throughout the thoracic spine. No lytic or blastic bony lesions are seen. IMPRESSION: 1. There is no evidence of pulmonary embolus in the main, lobar, or segmental pulmonary arteries. 2. There is patchy airspace consolidation seen at both lung bases, new from 01/29/2017. This likely represents pneumonia/aspiration pneumonitis. Clinical correlation will be required. 3. There is fluid/secretions present within the lower lobe airways bilaterally. This could represent mucous plugging versus aspiration. 4. Advanced emphysema. 5. Small pericardial effusion. Electronically signed by: Moy Hidalgo M.D. 02/12/2017 8:51 PM Dictated Date/Time: 02/12/2017 8:45 PM
[2017-02-12] MEDS: ZOLPIDEM TARTRATE 10 MG TAB PO SCH (21:03)
[2017-02-13] VITALS (11 sets, daily range): BP systolic 122–147; BP diastolic 61–76; PULSE 68–88; TEMP 36.2–36.7; O2SAT 91–95
[2017-02-13] MEDS ORDERED: VANCOMYCIN TROUGH SCH (01:30)
[2017-02-13] MEDS: IPRATROPIUM BROMIDE NEB SOLN 0.02% 2.5 ML VIAL INH SCH ×4 (02:12→21:00)
[2017-02-13] MEDS: LEVALBUTEROL 1.25MG/0.5ML NEB INH SCH ×4 (02:12→21:00)
[2017-02-13] MEDS: METHYLPREDNISOLONE IV 40 MG in SYRINGE 0 ML IV SCH ×2 (05:34→18:14)
[2017-02-13] MEDS: LEVOTHYROXINE 88 MCG TAB PO SCH (05:34)
[2017-02-13 06:17] LABS: COMPLETE YES; HEMATOCRIT 41.8 % (42-52); IG% 0.4 %; LYMPH % 2.1 %; LYMPH ABS # 0.32 K/uL (1.2-3.4); MEAN CELL VOLUME 96.8 fL (80-100); MEAN CORPUSCULAR HEMOGLOBIN 31.7 pg (25-34); MEAN CORPUSCULAR HGB CONC 32.8 g/dl (32-36); MEAN PLATELET VOLUME 10.5 fL (7.4-10.4); MONO % 2.3 %; NEUT % 95.2 %; PLATELET COUNT 153 K/uL (130-400); RED BLOOD COUNT 4.32 M/uL (4.7-6.1); WHITE BLOOD COUNT 15.27 K/uL (4.8-10.8)
[2017-02-13 06:54] LABS: BUN/CREATININE RATIO 18.8 (10-20); CALCIUM 8.8 mg/dl (8.5-10.1); MAGNESIUM 2.4 mg/dl (1.8-2.4); POTASSIUM 3.8 mmol/L (3.5-5.1)
[2017-02-13] MEDS: PANTOprazole SOD 40 MG TAB PO SCH (07:54)
[2017-02-13] MEDS: GUAIFENESIN 600 MG TABCR PO SCH ×2 (07:54→20:31)
[2017-02-13] MEDS: AZATHIOPRINE 50 MG TAB PO SCH (07:55)
[2017-02-13] MEDS: LACTOBACILLUS ACIDOPHILUS (FLORANEX) TAB PO SCH ×3 (07:55→16:45)
[2017-02-13] MEDS: MULTIVITAMIN TAB PO SCH (07:55)
[2017-02-13] MEDS: DILTIAZEM HCL 30 MG TAB PO SCH ×2 (07:55→13:27)
[2017-02-13] MEDS: COLESTIPOL HCL 1 GM TAB PO SCH ×2 (07:55→20:31)
[2017-02-13] MEDS: CYANOCOBALAMIN 100 MCG TAB (VIT B-12) PO SCH (07:55)
[2017-02-13] MEDS: LOPERAMIDE HCL 2 MG CAP PO SCH ×2 (07:57→20:31)
[2017-02-13] MEDS: PIPERACILL/TAZOBAC IV 3.375 GM in DEXTROSE 5% 100ML 100 ML IV SCH ×3 (07:57→23:35)
--- NOTE | 2017-02-13 11:59 | Progress Note ---
Subjective Date of Service: February 13, 2017. Subjective Pt evaluation today including: conversation w/ patient, physical exam, lab review, review of studies, conversation w/ sec reporting consultant, review of inpatient medication list Pain: denies pain PO Intake: adequate Voiding: no voiding problems titrated off of oxygen last night, still breathing comfortable on room air this AM coughing less today, less sputum appreciate pulmonology consult from Dr. Alamo reviewed studies, echo was normal with EF 65-70% and no signs of right heart failure or pulmonary hypertension CTA chest negative for PE, + for emphysema and bibasilar infiltrates not visualized on CT from 01/29 placed on droplet/airborne precautions until TB ruled out Problem List Medical Problems: (1) Acute bronchitis Status: Acute (2) COPD exacerbation Status: Acute (3) Failure of outpatient treatment Status: Acute (4) Lactic acidosis Status: Acute (5) Sepsis Status: Acute Review of Systems Constitutional: + fatigue (difficult time sleeping, cannot lay flat), + weakness Respiratory: + cough, + dyspnea on exertion, + shortness of breath, + sputum All Other Systems: Reviewed and Negative Medications Current Inpatient Medications Medications (Trade) Dose Ordered Sig/Jeffery Route Start Time Stop Time Status Last Admin Dose Admin Acetaminophen (Tylenol Tab) 650 mg Q4H PRN PO 02/10/17 20:15 03/12/17 20:14 Nitroglycerin (Nitrostat Tab) 0.4 mg UD PRN SL 02/10/17 20:15 03/12/17 20:14 Azathioprine (Imuran Tab) 50 mg DAILY PO 02/11/17 09:00 03/13/17 08:59 02/13/17 07:55 50 MG Colestipol HCl (Colestid Tab) 1 gm BID@1000,2200 PO 02/10/17 22:00 03/12/17 21:59 02/13/17 07:55 1 GM Cyanocobalamin (Vitamin B-12 Tab) 100 mcg DAILY PO 02/11/17 09:00 03/13/17 08:59 02/13/17 07:55 100 MCG Acetaminophen/ Hydrocodone Bitart ([place] 5/325 Tab) 1 tab Q4H PRN PO 02/10/17 20:15 02/24/17 20:14 Levothyroxine Sodium (Synthroid Tab) 88 mcg DAILYBB PO 02/11/17 06:00 03/13/17 05:59 02/13/17 05:34 88 MCG Loperamide HCl (Imodium Cap) 2 mg BID PO 02/10/17 21:00 03/12/17 20:59 02/13/17 07:57 2 MG Multivitamins (Multivitamin Tab) 1 tab DAILY PO 02/11/17 09:00 03/13/17 08:59 02/13/17 07:55 1 TAB Zolpidem Tartrate (Ambien Tab) 10 mg HS PO 02/10/17 21:00 03/12/17 20:59 02/12/17 21:03 10 MG Pantoprazole Sodium (Protonix Tab) 40 mg QAM PO 02/11/17 09:00 03/13/17 08:59 02/13/17 07:54 40 MG Ondansetron HCl 4 mg 4 mg Q6H PRN IV 02/10/17 20:15 03/12/17 20:14 Piperacillin Sod/ Tazobactam Sod 3.375 gm/Dextrose 115 ml @ 28.75 mls/ hr Q8H IV 02/11/17 00:00 02/17/17 17:59 02/13/17 07:57 28.75 MLS/HR Levofloxacin/Prmx (Levaquin / D5W/ Premixed D5W) 100 ml @ 100 mls/hr Q24H IV 02/11/17 18:00 02/17/17 17:59 02/12/17 18:49 100 MLS/HR Guaifenesin (Mucinex Contr Rel Tab) 600 mg BID PO 02/10/17 21:00 03/12/17 20:59 02/13/17 07:54 600 MG Lactobacillus Acidophilus (Floranex Tab) 4 tab TIDM PO 02/11/17 07:30 03/13/17 07:59 02/13/17 07:55 4 TAB Diltiazem HCl (Cardizem Tab) 30 mg QID PO 02/10/17 21:00 03/12/17 20:59 02/13/17 07:55 30 MG Levalbuterol (Xopenex 1.25MG/ 0.5ML Neb) 1.25 mg Q6R INH 02/11/17 03:00 03/13/17 02:59 02/13/17 07:08 1.25 MG Ipratropium [place] (Atrovent 0.02% 0.5MG/2.5ML Neb) 0.5 mg Q6R INH 02/11/17 03:00 03/13/17 02:59 02/13/17 07:08 0.5 MG Piperacillin Sod/ Tazobactam Sod (Consult) 1 ea UD PRN N/A 02/10/17 21:30 03/12/17 21:29 Ioversol 87 ml 87 ml UD PRN IV 02/12/17 20:45 02/16/17 20:44 Methylprednisolone Sodium Succinate/ Syringe (Solu-Medrol IV/ Syringe) 0.64 ml @ 1.5 mls/min Q12H IV 02/13/17 18:00 03/15/17 20:59 Objective Vital Signs Date Time Temp Pulse Resp B/P Pulse Ox O2 Delivery O2 Flow Rate FiO2 02/13/17 10:33 36.7 81 20 145/68 93 Room Air 02/13/17 08:00 36.5 68 18 122/68 92 Room Air 02/13/17 08:00 92 Room Air 02/13/17 07:08 73 16 93 Room Air 02/13/17 04:00 36.7 88 18 147/76 92 Room Air 02/13/17 04:00 Room Air 02/13/17 02:12 85 20 94 Room Air 02/13/17 00:00 36.2 86 22 124/61 95 Room Air 02/13/17 00:00 Room Air 02/12/17 20:47 88 20 94 Room Air 02/12/17 20:00 Nasal Cannula 1.0 02/12/17 19:32 36.9 74 18 132/70 93 Nasal Cannula 1.0 02/12/17 16:00 Nasal Cannula 1.0 02/12/17 15:12 36.5 88 18 130/73 91 Nasal Cannula 2.0 02/12/17 14:26 83 20 93 Nasal Cannula 1.0 02/12/17 13:56 76 144/66 02/12/17 12:15 Nasal Cannula 1.0 Physical Exam General Appearance: WD/WN, no apparent distress Eyes: normal inspection, EOMI ENT: normal ENT inspection, hearing grossly normal, pharynx normal Neck: supple, no adenopathy, no JVD, trachea midline Respiratory/Chest: chest non-tender, no respiratory distress, no accessory muscle use, + decreased breath sounds (bilaterally), + rhonchi Cardiovascular: regular rate, rhythm, no edema, no gallop, no JVD, no murmur Abdomen: normal bowel sounds, non tender, soft, no organomegaly Extremities: normal range of motion, non-tender, normal inspection, no pedal edema, no calf tenderness Neurologic/Psychiatric: sifting operator II-XII nml as tested, no motor/sensory deficits, alert, normal mood/affect, oriented x 3 Skin: normal color, warm/dry, no rash Lymphatic: no adenopathy Laboratory Results Last 24 Hours Test 02/12/17 18:26 02/13/17 05:38 White Blood Count 15.27 K/uL Red Blood Count 4.32 M/uL Hemoglobin 13.7 g/dL Hematocrit 41.8 % Mean Corpuscular Volume 96.8 fL Mean Corpuscular Hemoglobin 31.7 pg Mean Corpuscular Hemoglobin Concent 32.8 g/dl Platelet Count 153 K/uL Mean Platelet Volume 10.5 fL Neutrophils (%) (Auto) 95.2 % Lymphocytes (%) (Auto) 2.1 % Monocytes (%) (Auto) 2.3 % Eosinophils (%) (Auto) 0.0 % Basophils (%) (Auto) 0.0 % Neutrophils # (Auto) 14.54 K/uL Lymphocytes # (Auto) 0.32 K/uL Monocytes # (Auto) 0.35 K/uL Eosinophils # (Auto) 0.00 K/uL Basophils # (Auto) 0.00 K/uL RDW Standard Deviation 53.3 fL RDW Coefficient of Variation 15.0 % Immature Granulocyte % (Auto) 0.4 % Immature Granulocyte # (Auto) 0.06 K/uL Sodium Level 137 mmol/L Potassium Level 3.8 mmol/L Chloride Level 102 mmol/L Carbon Dioxide Level 25 mmol/L Anion Gap 10.0 mmol/L Blood Urea Nitrogen 19 mg/dl Creatinine 1.00 mg/dl Est Creatinine Clear Calc Drug Dose 89.8 ml/min Estimated GFR () 90.5 Estimated GFR (Non- 78.1 BUN/Creatinine Ratio 18.8 Random Glucose 144 mg/dl Calcium Level 8.8 mg/dl Magnesium Level 2.4 mg/dl Assessment and Plan This is a 66 yo M with pmhx of COPD, Hypothyroidism, GERD, insomnia, Crohns disease/IBS presenting to the ED with Hypoxia/COPD exacerbation/chronic bronchitis/failure of outpatient treatment. COPD exacerbation, bibasilar PNA (seen on CT chest) much improved today, titrated off of oxygen, less labored breathing, no accessory muscle use wean back Solu Medrol to 40mg q12 and follow, likely to Prednisone in next 24 -48 hours continue Zosyn and Levaquin (day #3), titrate back to one antibiotic tomorrow continue supportive treatment with Mucinex, Xopenex/Atrovent high flow nebulizers QID and Q2H prn appreciate pulmonology consultation checking for TB, Quantiferon Gold pending, sending sputum for AFB Acute hypoxic respiratory failure, present on arrival resolved overnight, breathing comfortably on room air Sinus tachycardia with rate dependent ST segment depression in inferolateral leads: sinus tach resolved Cardiac enzymes trended negative 3 repeat EKG 02/12 - NSR can stop Cardizem and resume Norvasc for HTN Hypothyroidism continue levothyroxine sodium 88 g by mouth every afternoon. GERD Cont pantoprazole 40 mg PO daily. Insomnia continue zolpidem tartrate 10 mg QHS Crohns disease, hx Diarrhea continue loperamide 2 mg by mouth twice a day. Currently bowels are normal, last BM was yesterday Continue Imuran 50 mg PO daily Vitamin B-12 deficiency -continue supplement 100 g by mouth daily. CODE STATUS: Full code Disposition: continue telemetry with isolation, airborne precautions, follow up on TB testing, will discuss further with Dr. Alamo
--- NOTE | 2017-02-13 14:59 | Clinical Documentation Query ---
CLINICAL DOCUMENTATION QUERY Dr. PEARL, Please Document Present on Admission Status for: - Acute respiratory failure, POA - Acute respiratory failure, not POA Pt presented to ER, noted to be very uncomfortable, tripoding. Resp rate 20-36. O2 sat 86% on RA and 95% on 8L mask, 91% on 2L The diagnosis of Acute Respiratory failure is not noted until pt's 3rd day of stay. Thank You, Ana Teague, RN [phone]
[2017-02-13] MEDS: LEVOFLOXACIN / D5W 500 MG in PREMIXED IN D5W 100 ML IV SCH (18:14)
[2017-02-13] MEDS: BUDESONIDE/FORMOTEROL FUMARATE 160/4.5 60 PUFFS/INHALER INH SCH (20:31)
[2017-02-13] MEDS: ZOLPIDEM TARTRATE 10 MG TAB PO SCH (22:40)
[2017-02-14] VITALS (11 sets, daily range): BP systolic 134–164; BP diastolic 53–80; PULSE 73–94; TEMP 36.4–36.8; O2SAT 91–96
[2017-02-14] MEDS: IPRATROPIUM BROMIDE NEB SOLN 0.02% 2.5 ML VIAL INH SCH ×3 (02:22→19:24)
[2017-02-14] MEDS: LEVALBUTEROL 1.25MG/0.5ML NEB INH SCH ×3 (02:22→19:24)
[2017-02-14] MEDS: LEVOTHYROXINE 88 MCG TAB PO SCH (06:07)
[2017-02-14] MEDS: METHYLPREDNISOLONE IV 40 MG in SYRINGE 0 ML IV SCH ×2 (06:07→18:14)
--- NOTE | 2017-02-14 07:37 | Hospitalist Progress Note ---
Hospitalist Progress Note Date of Service February 14, 2017. Subjective Pt evaluation today including: conversation w/ patient, conversation w/ family , physical exam, chart review, lab review, review of studies, conversation w/ acquisition consultant Pain: None PO Intake: Good Voiding: no voiding problems The patient was seen and examined this morning. Pt reports shortness of breath is slightly improved, but that he is still feeling winded whenever he moves from bed to bathroom. He has a hoarse cough which is still nonproductive. He denies any other acute complaints. The patient was seen with Dr. Alamo at bedside, and an ultrasound was done to assess for pleural effusion. Additional Comments: Constitutional: No fever, sweats or chills Eyes: No diplopia, no worsening or blurred vision ENT: normal hearing, no trouble swallowing Respiratory: See HPI Cardiovascular: No chest pain, tightness or palpitations Abdomen: No pain, nausea, vomiting, diarrhea or constipation Musculoskeletal: No joint pain, calf pain, swelling Neurologic: No weakness, numbness/tingling, or balance problems Psychiatric: No anxiety or depression Skin: No rash or itch Objective Vital Signs Date Time Temp Pulse Resp B/P Pulse Ox O2 Delivery O2 Flow Rate FiO2 02/14/17 07:28 36.7 75 20 162/77 92 Room Air 02/14/17 04:07 Room Air 02/14/17 04:00 36.5 88 20 151/73 91 Room Air 02/14/17 02:25 78 16 96 Room Air 02/14/17 02:23 82 16 94 Room Air 02/14/17 00:02 36.4 75 20 152/80 93 Room Air 02/14/17 00:01 Room Air 02/13/17 20:00 Room Air 02/13/17 19:10 36.3 73 16 136/76 93 Room Air 02/13/17 16:00 92 Room Air 02/13/17 15:54 36.4 88 16 144/74 91 Room Air 02/13/17 14:04 73 14 95 Room Air 02/13/17 12:00 80 02/13/17 12:00 92 Room Air 02/13/17 10:33 36.7 81 20 145/68 93 Room Air 02/13/17 08:00 36.5 68 18 122/68 92 Room Air 02/13/17 08:00 92 Room Air Physical Exam Notes: General: awake, alert, no apparent distress Head: Normocephalic, atraumatic ENT: PERRL, EOMI, no pharyngeal exudate, mucous membranes moist Respiratory: On room air, coarse breath sounds throughout, worse on the right base, middle lobe and upper lobe compared to the left. Left + crackles at the bases. + Cough, nonproductive. Cardiac: Regular rate and rhythm, no murmur, no JVD, normal peripheral pulses, good capillary refill Abdominal: NABS x 4 quadrants, soft, nontender to palpation, no rebound, guarding or tenderness Extremities: Normal inspection, no peripheral edema or erythema, calfs nontender to palpation Psych: Normal mood and affect Neuro: AAO x 3, speech is clear, no peripheral sensory deficits Assessment and Plan This is a 66 yo M with pmhx of COPD, Hypothyroidism, GERD, insomnia, Crohns disease/IBS presenting to the ED with Hypoxia/COPD exacerbation/chronic bronchitis/failure of outpatient treatment. COPD exacerbation Acute bronchitis - wean back Solu Medrol to 40mg q12 and follow, spoke with Dr. Alamo bedside, will plan to aggressively diurese patient today with findings ultrasound showing pleural fluid even in the upper lobes. Start with IV Lasix 40 mg x1 and will place him on a fluid restriction of 1500mL/d. - appreciate pulmonology consultation - checking for TB, Quantiferon Gold pending, sending sputum for AFB - on droplet precautions for now. - Continue IV antibiotics with vancomycin, Zosyn, Levaquin (day#4) - Can continue supportive treatment with Mucinex, Xopenex/Atrovent high flow nebulizers QID and Q2H prn - O2 titrated as able,currently on 1L O2 via NC. Goal O2 sats = 88-92% - Hold Symbicort, DuoNeb's, and Spiriva. Sinus tachycardia with rate dependent ST segment depression in inferolateral leads - Cardiac enzymes trended negative 3 - Repeat EKG 02/12 was obtained and appears to be in normal sinus rhythm currently. 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 GERD - Cont pantoprazole 40 mg PO daily. Insomnia - continue zolpidem tartrate 10 mg QHS Crohns disease, hx Diarrhea - continue loperamide 2 mg by mouth twice a day. Currently bowels are normal, last BM was yesterday - Continue Imuran 50 mg PO daily Vitamin B-12 deficiency -continue supplement 100 g by mouth daily. CODE STATUS: Full code Disposition: continue telemetry with isolation, airborne precautions, follow up on TB testing, continue aggressive diuresis today, possible discharge within 2 days
[2017-02-14] MEDS: BUDESONIDE/FORMOTEROL FUMARATE 160/4.5 60 PUFFS/INHALER INH SCH ×2 (07:45→21:27)
[2017-02-14] MEDS: LACTOBACILLUS ACIDOPHILUS (FLORANEX) TAB PO SCH ×3 (07:46→17:00)
[2017-02-14] MEDS: LOPERAMIDE HCL 2 MG CAP PO SCH ×2 (07:46→21:28)
[2017-02-14] MEDS: GUAIFENESIN 600 MG TABCR PO SCH ×2 (07:47→21:28)
[2017-02-14] MEDS: CYANOCOBALAMIN 100 MCG TAB (VIT B-12) PO SCH (07:47)
[2017-02-14] MEDS: PANTOprazole SOD 40 MG TAB PO SCH (07:47)
[2017-02-14] MEDS: AZATHIOPRINE 50 MG TAB PO SCH (07:47)
[2017-02-14] MEDS: MULTIVITAMIN TAB PO SCH (07:48)
[2017-02-14] MEDS: AMLODIPINE BESYLATE 5 MG TAB PO SCH (07:48)
[2017-02-14] MEDS: TIOTROPIUM BROMIDE 5 PUFF/90 MCG INH INH SCH (07:50)
[2017-02-14] MEDS: PIPERACILL/TAZOBAC IV 3.375 GM in DEXTROSE 5% 100ML 100 ML IV SCH ×3 (08:03→23:40)
[2017-02-14] MEDS ORDERED: FUROSEMIDE INJ 40 MG in SYRINGE 0 ML IV ONE (10:30)
[2017-02-14] MEDS: COLESTIPOL HCL 1 GM TAB PO SCH ×2 (10:40→21:28)
--- NOTE | 2017-02-14 12:15 | PROGRESS NOTE ---
DATE: 02/14/2017 DATE: 02/14/2017. PROBLEM LIST: Includes: 1. Persistent cough. 2. Possible chronic obstructive pulmonary disease. 3. Hypoxemia. SUBJECTIVE: The patient reports today that he is still having some trouble with cough. His cough is not really any better. He still is getting mucus up when he coughs. He still is short of breath. He denies any chest discomfort or pleuritic chest pain at this time. He does have some wheezing. He did have a CT angiogram of his chest which is not showing any evidence of pulmonary embolism but it is showing a possible aspiration. He states that he is tolerating the nebulizer treatments well. He is doing well with the steroids and antibiotics. He has not had any fever or chills that he is aware of. He states he does have some sweats from time to time in the hospital, but he feels it is from coughing. No GI symptoms at this time. He will have some difficulty swallowing and have some sensation of food going down wrong. No nausea or vomiting, no indigestion or heartburn. He has not had any difficulty with his bowels. No difficulty voiding. No swelling in his extremities. OBJECTIVE: GENERAL: The patient is a 66-year-old male sitting up in bed in no acute distress. He is alert and oriented x3, does have some coughing paroxysms, does get slightly winded with obtaining history. He is alert and oriented. Mood is good. Affect is good. VITAL SIGNS: Temp 36.8, pulse 94, respirations 20, blood pressure 164/77. Pulse ox is 91-92% on room air. HEAD, EYES, EARS, NOSE, AND THROAT: Normocephalic, atraumatic. Pupils equal, round and reactive to light and accommodation. Extraocular movements are intact. [place] moist gingival and buccal mucosa. NECK: Supple. There is no mass. No adenopathy. No bruit. CHEST: The patient has some wheezing diffusely throughout with some coarser sounding almost crackles at the bases. CARDIOVASCULAR: Regular rate and rhythm. There are no murmurs, gallops or rubs. ABDOMEN: Bowel sounds are present. Abdomen soft, nontender. No guarding, rigidity or organomegaly. EXTREMITIES: No erythema or edema. No cyanosis or clubbing noted. NEUROLOGIC: Cranial nerves II through XII are intact. No focal deficit noted. LABORATORY DATA: QuantiFERON Gold pending. The patient has had [address] of the chest shows no evidence for pulmonary embolism, patchy airspace changes at both bases with possibility of pneumonia versus aspiration, possible mucous plugging. IMPRESSION: 1. This is a 66-year-old male who has had a chronic cough, currently workup for TB with QuantiFERON Gold being done and sputum cultures being obtained. At this point the patient continues on droplet isolation. 2. Possible aspiration. The patient is on Zosyn and will continue that. At this point the patient will need to have a video swallow done. This will be done once patient is out of isolation. He will also need a speech eval. 3. Hypoxemia, stable. The patient is back on room air saturating at 91-92%. 4. Possible diastolic dysfunction. Continue fluid restriction and diuresis. PLAN: 1. Will go ahead and stop the Levaquin per Dr. Alamo's recommendations. Keep him on Zosyn for coverage for aspiration. 2. Barium swallow once patient is out of isolation. 3. Speech eval once patient is out of isolation. 4. Continue pulmonary toilet. 5. Continue contact isolation. 6. Will continue to follow during hospitalization. Case was discussed with Dr. Alamo who had seen the patient earlier today.
[2017-02-14] MEDS: ZOLPIDEM TARTRATE 10 MG TAB PO SCH (21:27)
[2017-02-15] VITALS (10 sets, daily range): BP systolic 120–154; BP diastolic 60–85; PULSE 67–85; TEMP 36.3–36.8; O2SAT 91–96
[2017-02-15] MEDS: IPRATROPIUM BROMIDE NEB SOLN 0.02% 2.5 ML VIAL INH SCH ×4 (01:56→19:31)
[2017-02-15] MEDS: LEVALBUTEROL 1.25MG/0.5ML NEB INH SCH ×4 (01:56→19:31)
[2017-02-15] MEDS: LEVOTHYROXINE 88 MCG TAB PO SCH (06:00)
[2017-02-15] MEDS: METHYLPREDNISOLONE IV 40 MG in SYRINGE 0 ML IV SCH (06:09)
--- NOTE | 2017-02-15 08:05 | Hospitalist Progress Note ---
Hospitalist Progress Note Date of Service February 15, 2017. Subjective Pt evaluation today including: conversation w/ patient, conversation w/ family , physical exam, chart review, lab review, review of studies Pain: None PO Intake: NPO for bronch Voiding: no voiding problems The patient was seen and examined this morning. Pt reports his breathing is much better today, he is still coughing without production but this is also improved. His son is present at bedside. Pt is NPO for anticipated bronch this morning. Additional Comments: Constitutional: No fever, sweats or chills Eyes: No diplopia, no worsening or blurred vision ENT: normal hearing, no trouble swallowing Respiratory: See HPI Cardiovascular: No chest pain, tightness or palpitations Abdomen: No pain, nausea, vomiting, diarrhea or constipation Musculoskeletal: No joint pain, calf pain, swelling Neurologic: No weakness, numbness/tingling, or balance problems Psychiatric: No anxiety or depression Skin: No rash or itch Objective Vital Signs Date Time Temp Pulse Resp B/P Pulse Ox O2 Delivery O2 Flow Rate FiO2 02/15/17 07:51 36.8 84 18 152/82 94 02/15/17 04:10 36.7 74 18 146/73 92 Room Air 02/15/17 04:00 Room Air 02/15/17 01:56 80 16 96 Room Air 02/15/17 00:01 Room Air 02/14/17 23:57 36.7 84 18 150/74 93 Room Air 02/14/17 19:41 Room Air 02/14/17 19:31 36.8 74 20 160/53 93 Room Air 02/14/17 19:24 76 18 93 Room Air 02/14/17 16:05 Room Air 02/14/17 15:33 36.7 73 22 134/68 93 Room Air 02/14/17 12:00 Room Air 02/14/17 11:04 36.8 94 20 164/77 91 Room Air Physical Exam Notes: General: awake, alert, no apparent distress Head: Normocephalic, atraumatic ENT: PERRL, EOMI, no pharyngeal exudate, mucous membranes moist Respiratory: On room air, breath sounds significantly improved- good aeration in the left side, +expiratory wheeze on the right, faint + crackles in right base. + Cough, nonproductive. Cardiac: Regular rate and rhythm, no murmur, no JVD, normal peripheral pulses, good capillary refill Abdominal: NABS x 4 quadrants, soft, nontender to palpation, no rebound, guarding or tenderness Extremities: Normal inspection, no peripheral edema or erythema, calfs nontender to palpation Psych: Normal mood and affect Neuro: AAO x 3, speech is clear, no peripheral sensory deficits Assessment and Plan This is a 66 yo M with pmhx of COPD, Hypothyroidism, GERD, insomnia, Crohns disease/IBS presenting to the ED with Hypoxia/COPD exacerbation/chronic bronchitis/failure of outpatient treatment. COPD exacerbation Acute bronchitis - Pt diuresed well with 40 IV lasix yesterday, Ladr=[id number] and again 900mL this morning so far with fluid restriction. Breath sounds are significantly improved. Will order one more time Lasix 20 mg IV today - Spoke with Dr. Alamo- Bronch cancelled as pt was able to give sputum samples- negative AFB x 2, await one more culture - Stop Solumedrol and transition to prednisone 40 mg PO BID as taper. - checking for TB, Quantiferon Gold pending - on droplet precautions for now. - Continue IV antibiotics with vancomycin, Zosyn, Levaquin (day#5) - Can continue supportive treatment with Mucinex, Xopenex/Atrovent high flow nebulizers QID and Q2H prn - O2 titrated as able,currently on 1L O2 via NC. Goal O2 sats = 88-92% - Hold Symbicort, DuoNeb's, and Spiriva. Sinus tachycardia with rate dependent ST segment depression in inferolateral leads - Cardiac enzymes trended negative 3 - Repeat EKG 02/12 was obtained and appears to be in normal sinus rhythm currently. 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 GERD - Cont pantoprazole 40 mg PO daily. Insomnia - continue zolpidem tartrate 10 mg QHS Crohns disease, hx Diarrhea - continue loperamide 2 mg by mouth twice a day. Currently bowels are normal, last BM was yesterday - Continue Imuran 50 mg PO daily Vitamin B-12 deficiency -continue supplement 100 g by mouth daily. CODE STATUS: Full code Disposition: continue telemetry with isolation, airborne precautions, follow up on TB testing, continue diuresis today, possible discharge within 1 days
[2017-02-15] MEDS: PIPERACILL/TAZOBAC IV 3.375 GM in DEXTROSE 5% 100ML 100 ML IV SCH ×2 (08:17→16:00)
[2017-02-15] MEDS: BUDESONIDE/FORMOTEROL FUMARATE 160/4.5 60 PUFFS/INHALER INH SCH ×2 (08:18→21:17)
[2017-02-15] MEDS: TIOTROPIUM BROMIDE 5 PUFF/90 MCG INH INH SCH (08:18)
[2017-02-15] MEDS ORDERED: FUROSEMIDE INJ 20 MG in SYRINGE 0 ML IV ONE (10:45)
[2017-02-15] MEDS: LACTOBACILLUS ACIDOPHILUS (FLORANEX) TAB PO SCH ×3 (11:30→16:00)
[2017-02-15] MEDS: MULTIVITAMIN TAB PO SCH (12:12)
[2017-02-15] MEDS: AZATHIOPRINE 50 MG TAB PO SCH (12:12)
[2017-02-15] MEDS: CYANOCOBALAMIN 100 MCG TAB (VIT B-12) PO SCH (12:12)
[2017-02-15] MEDS: PANTOprazole SOD 40 MG TAB PO SCH (12:12)
[2017-02-15] MEDS: GUAIFENESIN 600 MG TABCR PO SCH ×2 (12:12→21:15)
[2017-02-15] MEDS: AMLODIPINE BESYLATE 5 MG TAB PO SCH (12:12)
[2017-02-15] MEDS: COLESTIPOL HCL 1 GM TAB PO SCH ×2 (12:13→22:07)
[2017-02-15] MEDS: LOPERAMIDE HCL 2 MG CAP PO SCH ×2 (12:13→21:15)
[2017-02-15 14:24] LABS: QUANTIF TB AG-NIL <0.00 IU/ML; QUANTIFERON NIL 0.02 IU/ML
[2017-02-15] MEDS: ZOLPIDEM TARTRATE 10 MG TAB PO SCH (21:13)
[2017-02-16] MEDS: PIPERACILL/TAZOBAC IV 3.375 GM in DEXTROSE 5% 100ML 100 ML IV SCH ×2 (00:10→09:29)
[2017-02-16 02:20] VITALS: PULSE 89; O2SAT 91
[2017-02-16] MEDS: IPRATROPIUM BROMIDE NEB SOLN 0.02% 2.5 ML VIAL INH SCH ×3 (02:20→14:24)
[2017-02-16] MEDS: LEVALBUTEROL 1.25MG/0.5ML NEB INH SCH ×3 (02:20→14:24)
[2017-02-16 03:55] VITALS: BP 143/70; PULSE 110; TEMP 36.5; O2SAT 94
[2017-02-16] MEDS: LEVOTHYROXINE 88 MCG TAB PO SCH (05:38)
[2017-02-16 05:42] LABS: BASO % 0.1 %; BASO ABS # 0.01 K/uL (0-0.2); COMPLETE YES; EOS % 0.1 %; HEMATOCRIT 41.6 % (42-52); IG% 1.8 %; LYMPH % 6.4 %; LYMPH ABS # 0.53 K/uL (1.2-3.4); MEAN CELL VOLUME 93.9 fL (80-100); MEAN CORPUSCULAR HEMOGLOBIN 32.1 pg (25-34); MEAN CORPUSCULAR HGB CONC 34.1 g/dl (32-36); MEAN PLATELET VOLUME 10.2 fL (7.4-10.4); MONO % 3.2 %; NEUT % 88.4 %; PLATELET COUNT 172 K/uL (130-400); RED BLOOD COUNT 4.43 M/uL (4.7-6.1); WHITE BLOOD COUNT 8.33 K/uL (4.8-10.8)
[2017-02-16 06:20] LABS: BLOOD UREA NITROGEN 26 mg/dl (7-18); BUN/CREATININE RATIO 23.3 (10-20); CALCIUM 8.3 mg/dl (8.5-10.1); CARBON DIOXIDE 27 mmol/L (21-32); CHLORIDE 102 mmol/L (98-107); GLUCOSE 127 mg/dl (70-99); SODIUM 136 mmol/L (136-145)
[2017-02-16 07:07] VITALS: PULSE 77; O2SAT 93
[2017-02-16 07:19] LABS: POTASSIUM 3.9 mmol/L (3.5-5.1)
[2017-02-16 08:23] VITALS: BP 166/82; PULSE 87; TEMP 36.8; O2SAT 96
[2017-02-16] MEDS: GUAIFENESIN 600 MG TABCR PO SCH (09:28)
[2017-02-16] MEDS: LOPERAMIDE HCL 2 MG CAP PO SCH (09:28)
[2017-02-16] MEDS: AZATHIOPRINE 50 MG TAB PO SCH (09:28)
[2017-02-16] MEDS: PANTOprazole SOD 40 MG TAB PO SCH (09:28)
[2017-02-16] MEDS: MULTIVITAMIN TAB PO SCH (09:28)
[2017-02-16] MEDS: CYANOCOBALAMIN 100 MCG TAB (VIT B-12) PO SCH (09:28)
[2017-02-16] MEDS: LACTOBACILLUS ACIDOPHILUS (FLORANEX) TAB PO SCH ×2 (09:29→12:46)
[2017-02-16] MEDS: TIOTROPIUM BROMIDE 5 PUFF/90 MCG INH INH SCH (09:29)
[2017-02-16] MEDS: AMLODIPINE BESYLATE 5 MG TAB PO SCH (09:29)
[2017-02-16] MEDS: BUDESONIDE/FORMOTEROL FUMARATE 160/4.5 60 PUFFS/INHALER INH SCH (09:29)
[2017-02-16] MEDS: COLESTIPOL HCL 1 GM TAB PO SCH (10:36)
--- NOTE | 2017-02-16 10:57 | Hospitalist Progress Note ---
Hospitalist Progress Note Date of Service February 16, 2017. Subjective Pt evaluation today including: conversation w/ patient, physical exam, chart review, lab review, review of studies Pain: None PO Intake: Good Voiding: no voiding problems The patient was seen and examined this morning. Pt reports doing ok this morning. He feels his shortness of breath is relatively stable although hasn't been ambulating long distances with airborne precautions in place. He is coughing but reports not very much sputum. Discussion was held regarding the need for last AFB culture to come back, hopefully today. Pt is requesting fluid restriction be lifted if possible because he feels thirsty. He put out a large amount of urine in the past 48 hours with lasix for pulmonary edema. His bowel are moving without difficulty. He denies any fever, sweats, chills, sob at rest, dyspnea or cp. He denies any other acute complaints. ROS: 10 point ROS was obtained and otherwise negative. Objective Vital Signs Date Time Temp Pulse Resp B/P Pulse Ox O2 Delivery O2 Flow Rate FiO2 02/16/17 08:23 36.8 87 18 166/82 96 02/16/17 07:07 77 18 93 Room Air 02/16/17 04:00 Room Air 02/16/17 03:55 36.5 110 18 143/70 94 Room Air 02/16/17 02:20 89 18 91 Room Air 02/16/17 00:00 Room Air 02/15/17 23:50 36.3 67 18 120/63 93 Room Air 02/15/17 20:00 Room Air 02/15/17 19:31 80 16 93 Room Air 02/15/17 19:07 36.5 76 18 154/74 93 Room Air 02/15/17 16:00 Room Air 02/15/17 15:24 36.3 68 18 151/60 92 Room Air 02/15/17 14:16 85 16 95 Room Air 02/15/17 12:00 Room Air Physical Exam Notes: General: awake, alert, no apparent distress Head: Normocephalic, atraumatic ENT: PERRL, EOMI, no pharyngeal exudate, mucous membranes moist Respiratory: On room air, breath sounds clear throughout, no wheeze or crackles , + Cough, nonproductive. Cardiac: Regular rate and rhythm, no murmur, no JVD, normal peripheral pulses, good capillary refill Abdominal: NABS x 4 quadrants, soft, nontender to palpation, no rebound, guarding or tenderness Extremities: Normal inspection, no peripheral edema or erythema, calfs nontender to palpation Psych: Normal mood and affect Neuro: AAO x 3, speech is clear, no peripheral sensory deficits Laboratory Results Last 24 Hours Test 02/16/17 05:27 02/16/17 06:50 White Blood Count 8.33 K/uL Red Blood Count 4.43 M/uL Hemoglobin 14.2 g/dL Hematocrit 41.6 % Mean Corpuscular Volume 93.9 fL Mean Corpuscular Hemoglobin 32.1 pg Mean Corpuscular Hemoglobin Concent 34.1 g/dl Platelet Count 172 K/uL Mean Platelet Volume 10.2 fL Neutrophils (%) (Auto) 88.4 % Lymphocytes (%) (Auto) 6.4 % Monocytes (%) (Auto) 3.2 % Eosinophils (%) (Auto) 0.1 % Basophils (%) (Auto) 0.1 % Neutrophils # (Auto) 7.36 K/uL Lymphocytes # (Auto) 0.53 K/uL Monocytes # (Auto) 0.27 K/uL Eosinophils # (Auto) 0.01 K/uL Basophils # (Auto) 0.01 K/uL RDW Standard Deviation 49.2 fL RDW Coefficient of Variation 14.4 % Immature Granulocyte % (Auto) 1.8 % Immature Granulocyte # (Auto) 0.15 K/uL Sodium Level 136 mmol/L Potassium Level mmol/L 3.9 mmol/L Chloride Level 102 mmol/L Carbon Dioxide Level 27 mmol/L Anion Gap 7.0 mmol/L Blood Urea Nitrogen 26 mg/dl Creatinine 1.10 mg/dl Est Creatinine Clear Calc Drug Dose 74.6 ml/min Estimated GFR () 80.6 Estimated GFR (Non- 69.6 BUN/Creatinine Ratio 23.3 Random Glucose 127 mg/dl Calcium Level 8.3 mg/dl Chemistry Specimen Hemolysis Assessment and Plan This is a 66 yo M with pmhx of COPD, Hypothyroidism, GERD, insomnia, Crohns disease/IBS presenting to the ED with Hypoxia/COPD exacerbation/chronic bronchitis/failure of outpatient treatment. COPD exacerbation Acute bronchitis - Pt diuresed well with 40 IV lasix yesterday, Rpqi=[id number] and another 1000mL this morning, his weight is down to 94.9 kg. Breath sounds are significantly improved and clear today without wheezing or crackles. - Will d/c fluid restriction - Spoke with Dr. Alamo- Bronch cancelled as pt was able to give sputum samples- negative AFB x 2, await one more culture - in process - Cont prednisone 40 mg PO BID today, can taper as breath sounds are good. - checking for TB, Quantiferon Gold pending - on droplet precautions for now. - Continue IV antibiotics with vancomycin, Zosyn, Levaquin (day#6) - Can continue supportive treatment with Mucinex, Xopenex/Atrovent high flow nebulizers QID and Q2H prn - O2 titrated as able,currently on 1L O2 via NC. Goal O2 sats = 88-92% - Hold Symbicort, DuoNeb's, and Spiriva. Sinus tachycardia with rate dependent ST segment depression in inferolateral leads - Overnight pt had some tachycardia with rates 120-130s on monitor. - Cardiac enzymes trended negative 3 - Repeat EKG 02/12 was obtained and appears to be in normal sinus rhythm currently. 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 GERD - Cont pantoprazole 40 mg PO daily. Insomnia - continue zolpidem tartrate 10 mg QHS Crohns disease, hx Diarrhea - continue loperamide 2 mg by mouth twice a day. Currently bowels are normal, last BM was yesterday - Continue Imuran 50 mg PO daily Vitamin B-12 deficiency -continue supplement 100 g by mouth daily. CODE STATUS: Full code Disposition: continue telemetry with isolation, airborne precautions, follow up on TB testing, continue diuresis today, possible discharge within 24 hours pending final AFB
[2017-02-16 12:05] VITALS: BP 166/81; PULSE 80; TEMP 36.7; O2SAT 93
[2017-02-16] MEDS ORDERED: PRD10 PO (13:52)
[2017-02-16] MEDS ORDERED: FURO20TA PO (13:52)
[2017-02-16] MEDS ORDERED: AMOX875T PO (13:52)
[2017-02-16] MEDS ORDERED: GUAI1SOL5 PO (13:54)
--- NOTE | 2017-02-16 14:02 | Discharge Instructions ---
Discharge Instructions Date of Service February 16, 2017. Admission Reason for Admission: Hypoxia,Sinus Tachycardia Discharge Discharge Diagnosis / Problem: Bilateral pneumonia, COPD exacerbation, hypoxia , diastolic heart failure Discharge Goals Goal(s): Improve function, Diagnostic testing (evaluation for aspiration) Activity Recommendations Activity Limitations: resume your previous activity Lifting Limitations: none Exercise/Sports Limitations: as tolerated May Resume Sexual Activity: when tolerated Shower/Bathe: no limitations Driving or Machine Use: no limitations . Instructions / Follow-Up Instructions / Follow-Up Medications: - AUGMENTIN: antibiotic for pneumonia, you received 7 days thus far, need 3 more days as outpatient - PREDNISONE: complete taper over the next 12 days, start at 40mg daily tomorrow , decrease by 10mg every 3 days - LASIX: diuretic added to help keep lungs dry, you diuresed 8 liters since admission which has helped breathing - CODEINE: use at night to help decrease cough so you can sleep In summary, your difficulty breathing is multifactorial with COPD as well as bilateral pneumonia and some volume overload in the lungs, likely from all the steroids you have received. Dr. Alamo checked you for TB which was negative (3 negative sputum samples) he recommends getting evaluated for aspiration as a cause of the pneumonia, this would entail a video swallow that can be done outpatient FOLLOW UP - Dr. Cook in one week, call for appointment - Dr. Alamo in 1-2 weeks, call for appointment, Current Hospital Diet Patient's current hospital diet: AHA Diet (Heart Healthy) Discharge Diet Recommended Diet: AHA Diet (Heart Healthy) Fluid Restriction: None Procedures Procedures Performed: none Pending Studies Studies pending at discharge: no Medical Emergencies . Who to Call and When: Medical Emergencies: If at any time you feel your situation is an emergency, please call 911 immediately. . Non-Emergent Contact Non-Emergency issues call your: Primary Care Provider, Chemistry Technician Call Non-Emergent contact if: you have any medication questions . . "Provider Documentation" section prepared by Antonio Munoz. . Woodworker Helper Recommendations Woodworker Helper Recommendations: sleep with head of bed elevated use Codeine as needed to help sleep follow up in office to work up aspiration as etiology of pneumonia and cough for weeks VTE Core Measure Inpt VTE Proph given/why not?: SCD's [place] Drug Monitoring Program Search Results: no issues identified
--- NOTE | 2017-02-16 14:07 | Pulmonology Progress Note ---
Pulmonary Progress Note Date of Service February 16, 2017. Attending Dr. Alamo Subjective Patient experiencing worsening cough but his SOB had notable improved Objective Patient having episodes of paroxysmal cough which is keeping him awake and causing chest pain VS: I/O's Total: -8.3L RESP: cough during examine CARD: S1S2 but unable to asculate for M/R/G ABD: + BS soft non-tender EXT: bilateral lower ext 2+ pitting edema AFB Sputum (02/12/17) AFB not seen (02/14/17) AFB not seen (02/16/[address] Thorax (02/12/17) compared to 01/29/17) No evidence of proximal PE Patchy airspace consolidations seen at the basis bilaterally Fluid/secretions noted in the bilateral lower airways WBC: 8K QFT: Indeterminate TB test: 0.02 (looks for false positives) TB Mitogen: <0.00 (assure proper immune response) TB Antigen: <0.00 (TB specific antigen) PFT (07/21/16) Pre POST % FEV1/FVC: 72 72 0 FEV1: 2.88/74% 2.96/76% +2 FVC: 3.98/78% 4.10/80% +3 25-75% 95% 94% T.61/86% SVC: 3.89/76% DLCO: 45% DL/VA: 56% Cardiac Echo (02/12/2017) LV: EF=65-70%, hyperdynamic systolic function, type one diastolic dysfinction RV: WNL, TAPSE >1.5cm Assessment & Plan 66y/o male admitted with hypoxemia and cough: 1) Cough: Etiology appears at this time to be associated with diastolic heart failure along with possible aspiration. Patient is to sleep at an 35 degree or greater angle and when out of isolation get a dysphagia work-up. Start on cough suppressant. Sill drop his steroids to 40mg QD and continue inhaler regimen at this time. 2) TB: patient in isolation at this time. His last AFB stain is pending until this afternoon. If his stain is WNL I suggest we take him out of isolation and his cultures can be f/u as an outpatient. QTF testing is non-diagnostic as his immuno response is diminished from Imuran use so possible re-check for booster response or placing a PPD would most likely wouldn't be beneficial. 3) ADELAIDA: Will work on compliance as an outpatient when he not acutely ill. Data Medications: Current Inpatient Medications Medications (Trade) Dose Ordered Sig/Jeffery Route Start Time Stop Time Status Last Admin Dose Admin Acetaminophen (Tylenol Tab) 650 mg Q4H PRN PO 02/10/17 20:15 03/12/17 20:14 Nitroglycerin (Nitrostat Tab) 0.4 mg UD PRN SL 02/10/17 20:15 03/12/17 20:14 Azathioprine (Imuran Tab) 50 mg DAILY PO 02/11/17 09:00 03/13/17 08:59 02/16/17 09:28 50 MG Colestipol HCl (Colestid Tab) 1 gm BID@1000,2200 PO 02/10/17 22:00 03/12/17 21:59 02/16/17 10:36 1 GM Cyanocobalamin (Vitamin B-12 Tab) 100 mcg DAILY PO 02/11/17 09:00 03/13/17 08:59 02/16/17 09:28 100 MCG Acetaminophen/ Hydrocodone Bitart ([place] 5/325 Tab) 1 tab Q4H PRN PO 02/10/17 20:15 02/24/17 20:14 Levothyroxine Sodium (Synthroid Tab) 88 mcg DAILYBB PO 02/11/17 06:00 03/13/17 05:59 02/16/17 05:38 88 MCG Loperamide HCl (Imodium Cap) 2 mg BID PO 02/10/17 21:00 03/12/17 20:59 02/16/17 09:28 2 MG Multivitamins (Multivitamin Tab) 1 tab DAILY PO 02/11/17 09:00 03/13/17 08:59 02/16/17 09:28 1 TAB Zolpidem Tartrate (Ambien Tab) 10 mg HS PO 02/10/17 21:00 03/12/17 20:59 02/15/17 21:13 10 MG Pantoprazole Sodium (Protonix Tab) 40 mg QAM PO 02/11/17 09:00 03/13/17 08:59 02/16/17 09:28 40 MG Ondansetron HCl 4 mg 4 mg Q6H PRN IV 02/10/17 20:15 03/12/17 20:14 Piperacillin Sod/ Tazobactam Sod/ Dextrose (Zosyn Iv/D5 100ml) 115 ml @ 28.75 mls/ hr Q8H IV 02/11/17 00:00 02/17/17 17:59 02/16/17 09:29 28.75 MLS/HR Guaifenesin (Mucinex Contr Rel Tab) 600 mg BID PO 02/10/17 21:00 03/12/17 20:59 02/16/17 09:28 600 MG Lactobacillus Acidophilus (Floranex Tab) 4 tab TIDM PO 02/11/17 07:30 03/13/17 07:59 02/16/17 12:46 4 TAB Levalbuterol (Xopenex 1.25MG/ 0.5ML Neb) 1.25 mg Q6R INH 02/11/17 03:00 03/13/17 02:59 02/16/17 07:07 1.25 MG Ipratropium [place] (Atrovent 0.02% 0.5MG/2.5ML Neb) 0.5 mg Q6R INH 02/11/17 03:00 03/13/17 02:59 02/16/17 07:07 0.5 MG Piperacillin Sod/ Tazobactam Sod (Consult) 1 ea UD PRN N/A 02/10/17 21:30 03/12/17 21:29 Ioversol (Optiray 320) 87 ml UD PRN IV 02/12/17 20:45 02/16/17 20:44 Amlodipine Besylate (Norvasc Tab) 5 mg QAM PO 02/14/17 09:00 03/16/17 08:59 02/16/17 09:29 5 MG Budesonide/ Formoterol Fumarate (Symbicort 160/ 4.5 Inh) 2 puffs BID INH 02/13/17 21:00 03/15/17 20:59 02/16/17 09:29 2 PUFFS Tiotropium [place] (Spiriva Handihaler Inhaler) 1 puff QAM INH 02/14/17 09:00 03/16/17 08:59 02/16/17 09:29 1 PUFF Prednisone (PredniSONE TAB) 40 mg BID PO 02/15/17 21:00 03/17/17 20:59 02/16/17 09:28 40 MG I & O: 24-Hour Column 02/16/17 07:59 Intake Total 1124 ml Output Total 2725 ml Balance -1601 ml Vital Signs: Date Time Temp Pulse Resp B/P Pulse Ox O2 Delivery O2 Flow Rate FiO2 02/16/17 12:05 36.7 80 18 166/81 93 Room Air 02/16/17 12:00 Room Air 02/16/17 08:23 36.8 87 18 166/82 96 02/16/17 08:00 Room Air 02/16/17 07:07 77 18 93 Room Air 02/16/17 04:00 Room Air 02/16/17 03:55 36.5 110 18 143/70 94 Room Air 02/16/17 02:20 89 18 91 Room Air 02/16/17 00:00 Room Air 02/15/17 23:50 36.3 67 18 120/63 93 Room Air 02/15/17 20:00 Room Air 02/15/17 19:31 80 16 93 Room Air 02/15/17 19:07 36.5 76 18 154/74 93 Room Air 02/15/17 16:00 Room Air 02/15/17 15:24 36.3 68 18 151/60 92 Room Air 02/15/17 14:16 85 16 95 Room Air Laboratory Results: Last 24 Hours Test 02/16/17 05:27 02/16/17 06:50 White Blood Count 8.33 K/uL Red Blood Count 4.43 M/uL Hemoglobin 14.2 g/dL Hematocrit 41.6 % Mean Corpuscular Volume 93.9 fL Mean Corpuscular Hemoglobin 32.1 pg Mean Corpuscular Hemoglobin Concent 34.1 g/dl Platelet Count 172 K/uL Mean Platelet Volume 10.2 fL Neutrophils (%) (Auto) 88.4 % Lymphocytes (%) (Auto) 6.4 % Monocytes (%) (Auto) 3.2 % Eosinophils (%) (Auto) 0.1 % Basophils (%) (Auto) 0.1 % Neutrophils # (Auto) 7.36 K/uL Lymphocytes # (Auto) 0.53 K/uL Monocytes # (Auto) 0.27 K/uL Eosinophils # (Auto) 0.01 K/uL Basophils # (Auto) 0.01 K/uL RDW Standard Deviation 49.2 fL RDW Coefficient of Variation 14.4 % Immature Granulocyte % (Auto) 1.8 % Immature Granulocyte # (Auto) 0.15 K/uL Sodium Level 136 mmol/L Potassium Level mmol/L 3.9 mmol/L Chloride Level 102 mmol/L Carbon Dioxide Level 27 mmol/L Anion Gap 7.0 mmol/L Blood Urea Nitrogen 26 mg/dl Creatinine 1.10 mg/dl Est Creatinine Clear Calc Drug Dose 74.6 ml/min Estimated GFR () 80.6 Estimated GFR (Non- 69.6 BUN/Creatinine Ratio 23.3 Random Glucose 127 mg/dl Calcium Level 8.3 mg/dl Chemistry Specimen Hemolysis
--- NOTE | 2017-02-16 14:13 | Discharge Summary ---
Discharge Summary Date of Service February 16, 2017. Discharge Summary Admission Date: February 10, 2017 at 19:43 Discharge Disposition: Home Principal Diagnosis: Acute on chronic COPD exacerbation and bilateral pneumonia Problems/Secondary Diagnoses: COPD, Hypothyroidism, GERD, insomnia, Crohns disease/IBS presenting to the ED with Hypoxia/COPD exacerbation/chronic bronchitis/failure of outpatient treatment. Procedures: SINGLE VIEW CHEST 02/10/17 IMPRESSION: Advanced emphysema with no acute cardiopulmonary abnormality. CT ANGIOGRAM OF THE CHEST 02/12/17 IMPRESSION: 1. There is no evidence of pulmonary embolus in the main, lobar, or segmental pulmonary arteries. 2. There is patchy airspace consolidation seen at both lung bases, new from 01/29/2017. This likely represents pneumonia/aspiration pneumonitis. Clinical correlation will be required. 3. There is fluid/secretions present within the lower lobe airways bilaterally. This could represent mucous plugging versus aspiration. 4. Advanced emphysema. 5. Small pericardial effusion. Consultations: Pulmonology Medication Reconciliation New Medications: Amoxicillin & Pot Clavulanate (Augmentin 875-125 mg) 1 Tab Tab 1 TAB PO BID, #6 TAB Furosemide (Lasix) 20 Mg Tab 1 TAB PO DAILY for 30 Days, #30 TAB 3 Refills Guaifenesin-Codeine (Codeine/Guaifenesin 100-10 mg/5Ml) 1 Luz Maria Luz Maria 5 ML PO HS PRN for Cough, #50 ML 2 Refills Prednisone (Prednisone) 10 Mg Tab 40 MG PO DAILY for 12 Days, #48 TABS 0 Refills start 02/17, take 40mg daily x 3 days then 30mg daily x 3 days then 20mg daily x 3 days then 10mg daily x 3 days then stop Continued Medications: Albuterol Sulf (Proventil 0.083% 2.5MG/3ML) 2.5 Mg/3 Ml Nebu 2.5 MG INH Q4 PRN for Shortness of Breath, EA Albuterol Sulfate (Proair Respiclick) 108 Mcg/Act Aer 2 PUFFS INH QID PRN for SOB/Wheezing Amlodipine (Norvasc) 5 Mg Tab 5 MG PO DAILY, TAB Azathioprine (Imuran) 50 Mg Tab 50 MG PO DAILY, TAB Budesonide/Formoterol Fumarate (Symbicort 160/4.5 Inhaler) 120 Puffs/ Aero 2 PUFF INH BID, #30 Colestipol Hcl (Colestipol Hcl) 1 Gm Tab 1 GM PO BID Cyanocobalamin (Vitamin B-12) 100 Mcg Tab 100 MCG PO DAILY, TAB Hydrocodone/Acetaminophen 5MG/325MG (Mcfaddin 5MG/325MG) Tab 1 TABLET PO Q4H PRN for Pain, TAB PRN PAIN Ipratropium-Albuterol (Duoneb) 3 Ml Nebu 1 TREATMENT INH TID, INHA Levothyroxine Sodium (Synthroid) 88 Mcg Tab 88 MCG PO QPM, #90 Loperamide HCl (Loperamide HCl) 2 Mg Cap 2 MG PO BID Multivitamin (Multivitamin) Tab 1 TAB PO DAILY, TAB Omeprazole (Prilosec) 20 Mg Cap 20 MG PO QAM, #90 Tiotropium [place] (Spiriva Handihaler) 5 Puff/90 Mcg Aerp 1 PUFF INH QAM Zolpidem Tartrate (Ambien) 10 Mg Tab 10 MG PO HS, TAB Discontinued Medications: Prednisone (Prednisone) 20 Mg Tab 40 MG PO BID, #10 take 40 mg two times daily for 1 day then take 40 mg once daily for 1 days then take 20 mg once daily for 2 days then take 10mg one daily for 2 days then stop Discharge Exam Subjective Pt evaluation today including: conversation w/ patient, physical exam, chart review, lab review, review of studies Pain: None PO Intake: Good Voiding: no voiding problems The patient was seen and examined this morning. Pt reports doing ok this morning. He feels his shortness of breath is relatively stable although hasn't been ambulating long distances with airborne precautions in place. He is coughing but reports not very much sputum. Discussion was held regarding the need for last AFB culture to come back, hopefully today. Pt is requesting fluid restriction be lifted if possible because he feels thirsty. He put out a large amount of urine in the past 48 hours with lasix for pulmonary edema. His bowel are moving without difficulty. He denies any fever, sweats, chills, sob at rest, dyspnea or cp. He denies any other acute complaints. ROS: 10 point ROS was obtained and otherwise negative. Objective Vital Signs Date Time Temp Pulse Resp B/P Pulse Ox O2 Delivery O2 Flow Rate FiO2 02/16/17 08:23 36.8 87 18 166/82 96 02/16/17 07:07 77 18 93 Room Air 02/16/17 04:00 Room Air 02/16/17 03:55 36.5 110 18 143/70 94 Room Air 02/16/17 02:20 89 18 91 Room Air 02/16/17 00:00 Room Air 02/15/17 23:50 36.3 67 18 120/63 93 Room Air 02/15/17 20:00 Room Air 02/15/17 19:31 80 16 93 Room Air 02/15/17 19:07 36.5 76 18 154/74 93 Room Air 02/15/17 16:00 Room Air 02/15/17 15:24 36.3 68 18 151/60 92 Room Air 02/15/17 14:16 85 16 95 Room Air 02/15/17 12:00 Room Air Physical Exam Notes: General: awake, alert, no apparent distress Head: Normocephalic, atraumatic ENT: PERRL, EOMI, no pharyngeal exudate, mucous membranes moist Respiratory: On room air, breath sounds clear throughout, no wheeze or crackles , + Cough, nonproductive. Cardiac: Regular rate and rhythm, no murmur, no JVD, normal peripheral pulses, good capillary refill Abdominal: NABS x 4 quadrants, soft, nontender to palpation, no rebound, guarding or tenderness Extremities: Normal inspection, no peripheral edema or erythema, calfs nontender to palpation Psych: Normal mood and affect Neuro: AAO x 3, speech is clear, no peripheral sensory deficits Hospital Course H&P per Reagan Benoit MD. History of Present Illness Source: patient, spouse The patient is a 66-year-old male with a past medical history of COPD, with chronic inhaler use at home, and history of steroid use in the past, who presents to emergency department with worsening difficulty breathing in spite of outpatient treatment by his PCP and the offices PA. His breathing considerably worsened over the past 24 hours, and he developed some chills, and found his blood pressure to be elevated significantly beyond his baseline when he tested it. He has not had any recent travel, sick exposures, chest pain, nausea or vomiting, generalized myalgias or arthralgias. Physical Exam Vital Signs Date Time Temp Pulse Resp B/P Pulse Ox O2 Delivery O2 Flow Rate FiO2 02/11/17 00:00 36.7 79 18 127/72 96 Nasal Cannula 4.0 02/11/17 00:00 96 Nasal Cannula 4.0 02/10/17 21:12 36.9 104 20 142/68 92 Nasal Cannula 4.0 02/10/17 20:28 37.7 02/10/17 19:47 116 19 92 02/10/17 19:32 117 23 92 02/10/17 19:17 116 32 92 02/10/17 19:02 123 36 91 02/10/17 18:55 120 36 148/86 91 Nasal Cannula 2.0 02/10/17 18:55 148/84 02/10/17 18:47 114 26 02/10/17 18:32 117 34 02/10/17 18:22 95 Mask 8.0 02/10/17 18:22 92 Nasal Cannula 6.0 02/10/17 18:17 105 28 94 02/10/17 18:15 107 20 92 Nasal Cannula 2.0 02/10/17 18:10 171/86 02/10/17 18:08 113 02/10/17 17:56 37.2 116 20 167/79 86 Room Air General Appearance: WD/WN, no apparent distress Head: normocephalic, atraumatic Eyes: normal inspection, PERRL, EOMI, sclerae normal ENT: normal ENT inspection, hearing grossly normal, TMs normal, pharynx normal Neck: supple, no adenopathy, thyroid normal, no JVD, no carotid bruits, trachea midline (6) Respiratory/Chest: chest non-tender, no respiratory distress, + rhonchi, + wheezing Cardiovascular: regular rate, rhythm, no edema, no gallop, no JVD, no murmur, normal peripheral pulses Abdomen/GI: normal bowel sounds, non tender, soft, no organomegaly, no pulsatile mass Back: normal inspection, no CVA tenderness, no muscle spasm, normal range of motion Extremities/Musculoskelatal: normal inspection, no calf tenderness, normal capillary refill, no pedal edema, normal range of motion, non-tender Neurologic/Psych: lead caregiver II-XII nml as tested, no motor/sensory deficits, alert, normal mood/affect, normal reflexes, oriented x 3 Skin: normal color, warm/dry, no rash Lymphatic: no adenopathy Hospital Course: This is a 66 yo M with pmhx of COPD, Hypothyroidism, GERD, insomnia, Crohns disease/IBS presenting to the ED with Hypoxia/COPD exacerbation/chronic bronchitis/failure of outpatient treatment. Pulmonology was consulted and the patient was placed on vancomycin, Zosyn, and Levaquin for bilateral pneumonia. During admission pulmonology recommended the patient initially undergo bronchoscopy to rule out tuberculosis. The patient was able to provide 3 sputum samples which were negative for AFB so bronchoscopy was not necessary. He was supportively treated with breathing treatments, IV Solu-Medrol, and cough suppressants. He was fluid restricted for pulmonary edema which was seen on chest ultrasound at bedside with Dr. Alamo. He was diuresed with IV Lasix 40 mg IV on 02/14/17 which yielded large urine output. Again on 01/1819 the patient had another dose of IV Lasix. After diuresis lung sounds significantly improved and he felt much less short of breath. His dry weight was 94.9 kg without elevation of creatinine, this was approximately 8L fluid diuresis. Patient was transitioned off IV Solu-Medrol and transitioned to prednisone taper. The patient should continue Augmentin for 3 more days, prednisone taper and Robitussin as prescribed on discharge instructions. He should continue to take Lasix 20 mg by mouth daily. The patient has follow-up scheduled with pulmonology. COPD exacerbation Acute bronchitis Bilateral lobe pneumonia - Pt diuresed well with 40 IV lasix yesterday, Qrlb=[id number] and another 1000mL this morning, his weight is down to 94.9 kg. Breath sounds are significantly improved and clear today without wheezing or crackles. - Will d/c fluid restriction - Spoke with Dr. Alamo- Bronch cancelled as pt was able to give sputum samples- negative AFB x 3 - Transition off prednisone 40 mg PO BID with tape-->can start on 40 mg once daily tomorrow and finish taper on 02/21/17 - checking for TB, Quantiferon Gold pending -will ask PCP to follow results. - Continue IV antibiotics with Zosyn (day#6) - continue Augmentin 3 more days which will complete a ten-day course of antibiotics. - Can continue supportive treatment with Mucinex, Xopenex/Atrovent high flow nebulizers QID and Q2H prn - O2 titrated as able,currently on 1L O2 via NC. Goal O2 sats = 88-92% - Hold Symbicort, DuoNeb's, and Spiriva. Sinus tachycardia with rate dependent ST segment depression in inferolateral leads - Overnight pt had some tachycardia with rates 120-130s on monitor. - Cardiac enzymes trended negative 3 - Repeat EKG 02/12 was obtained and appears to be in normal sinus rhythm currently. 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 GERD - Cont pantoprazole 40 mg PO daily. Insomnia - continue zolpidem tartrate 10 mg QHS Crohns disease, hx Diarrhea - continue loperamide 2 mg by mouth twice a day. Currently bowels are normal, last BM was this morning - Continue Imuran 50 mg PO daily Vitamin B-12 deficiency -continue supplement 100 g by mouth daily. CODE STATUS: Full code Disposition: Discharged home today. Total Time Spent: Greater than 30 minutes This includes examination of the patient, discharge planning, medication reconciliation, and communication with other providers. Discharge Instructions Please refer to the electronic Patient Visit Report (Discharge Instructions) for additional information. Follow-Up Dr. Cook in one week, call for appointment Dr. Alamo in 1-2 weeks, call for appointment, Additional Copies To Jocelyne Cook M.D.
[2017-02-16] MEDS ORDERED: GUAIFENESIN/CODEINE 100MG/10MG 5ML UDC PO PRN (14:15)
[2017-02-16 14:24] VITALS: PULSE 82; O2SAT 94
[2017-03-23] MEDS ORDERED: PRED10TA PO (14:40)
[2017-03-23] MEDS ORDERED: PLMIH INH (14:40)
[2017-03-23] MEDS ORDERED: BENZ100C7 PO (14:40)
[2017-03-23] MEDS ORDERED: GFNSR600 PO (14:40)
[2017-03-23] MEDS ORDERED: LEVO1TAB35 PO (14:41)
[2017-08-10] MEDS ORDERED: GUAISYP8 PO (12:01)
[2017-08-10] MEDS ORDERED: HOMETAB PO (12:01)
[2017-08-10] MEDS ORDERED: CHOL1000 PO (12:02)
[2017-08-10] MEDS ORDERED: B-CO1CAP17 PO (12:02)
[2017-08-10] MEDS ORDERED: AMLO-110 PO (12:02)
[2017-08-10] MEDS ORDERED: TADA10TA PO (12:02)
== END 2017-02-16 15:45 | disposition home or self-care (01) | DRG 189 ==
LOC: ENRESERVTM → ENRESERVDT → C.EDB 17:48 → UNDOADMIN 19:43 → C.2T 19:43
PROVIDERS: ADMIT Hospitalist; ATTEND Internal Medicine
DX: J96.01 Acute respiratory failure with hypoxia (principal); J44.0 Chronic obstructive pulmonary disease with (acute) lower respiratory infection; J44.1 Chronic obstructive pulmonary disease with (acute) exacerbation; J18.9 Pneumonia, unspecified organism; K50.90 Crohn's disease, unspecified, without complications; I31.3 Pericardial effusion (noninflammatory); I50.30 Unspecified diastolic (congestive) heart failure; E87.2 Acidosis; I10 Essential (primary) hypertension; Z87.891 Personal history of nicotine dependence; R00.0 Tachycardia, unspecified; E03.9 Hypothyroidism, unspecified; K21.9 Gastro-esophageal reflux disease without esophagitis; E53.8 Deficiency of other specified B group vitamins; G47.00 Insomnia, unspecified; J20.9 Acute bronchitis, unspecified; G47.33 Obstructive sleep apnea (adult) (pediatric); M79.1 Myalgia

== ENCOUNTER → 2017-02-10 | Outpatient (CLI) | payer BC | END | disposition home or self-care (01) | LOC: C.LAB 09:47 | PROVIDERS: ATTEND Family Medicine | DX: M79.1 Myalgia (principal) ==

== ENCOUNTER 2017-02-17 12:37 | Observation (INO) | payer BC, OTHER ==
[~2017-02-17] VITALS: Ht 182.9 cm; Wt 88.3 kg
[~2017-02-17 12:37] MED LIST changes: -ALBINS INH; +ALBINS/ INH; +AMLO-110 PO; +AMOX875T PO; +AZAT50TA17 PO; +CYAN100T PO; +FURO20TA PO; +GUAI1SOL5 PO; +HYDR-5688 PO; +LEVO88TA PO; +MULT-506 PO; +OMEP20CA9 PO; +PRD10 PO; -PRD20 PO; -SYMIN INH; +SYMIN160 INH; -TMF75 PO; +ZOLP10TA PO
[2017-02-17] MEDS ORDERED: ALBUT/IPRATROP 3MG/0.5MG NEB 3 ML VIAL INH STA ×2 (13:12→16:44)
--- NOTE | 2017-02-17 13:57 | DIAGNOSTIC IMAGING REPORT ---
CHEST ONE VIEW PORTABLE CLINICAL HISTORY: EVALUATE RESPIRATORY DISTRESS. DYSPNEA dyspnea COMPARISON STUDY: 02/10/2017 FINDINGS: Emphysematous change. Chronic basilar fibrotic change unaltered from the prior study. Upper lungs are clear. IMPRESSION: Emphysematous and chronic change. Electronically signed by: Gregorio Lagos M.D. 02/17/2017 1:56 PM Dictated Date/Time: 02/17/2017 1:55 PM
[2017-02-17 14:19] LABS: BASO % 0.2 %; BASO ABS # 0.02 K/uL (0-0.2); COMPLETE YES; EOS % 0.2 %; HEMATOCRIT 44.3 % (42-52); IG% 1.9 %; LYMPH % 4.3 %; LYMPH ABS # 0.44 K/uL (1.2-3.4); MEAN CELL VOLUME 94.1 fL (80-100); MEAN CORPUSCULAR HEMOGLOBIN 32.3 pg (25-34); MEAN CORPUSCULAR HGB CONC 34.3 g/dl (32-36); MEAN PLATELET VOLUME 10.1 fL (7.4-10.4); MONO % 3.3 %; NEUT % 90.1 %; PLATELET COUNT 206 K/uL (130-400); RED BLOOD COUNT 4.71 M/uL (4.7-6.1); WHITE BLOOD COUNT 10.14 K/uL (4.8-10.8)
[2017-02-17 14:32] LABS: ALT/SGPT 48 U/L (12-78); AST/SGOT 21 U/L (15-37); BLOOD UREA NITROGEN 18 mg/dl (7-18); BUN/CREATININE RATIO 19.1 (10-20); CALCIUM 8.2 mg/dl (8.5-10.1); CARBON DIOXIDE 29 mmol/L (21-32); CHLORIDE 100 mmol/L (98-107); CREATININE 0.95 mg/dl (0.60-1.40); GLUCOSE 114 mg/dl (70-99); POTASSIUM 3.7 mmol/L (3.5-5.1); SODIUM 138 mmol/L (136-145)
[2017-02-17 14:37] LABS: ALKALINE PHOSPHATASE 61 U/L (45-117); CKMB/CK RATIO 3.4 (0-3.0)
[2017-02-17 14:55] LABS: URINE APPEARANCE CLEAR (CLEAR); URINE BILIRUBIN NEG (NEG); URINE COLOR YELLOW; URINE NITRITE NEG (NEG); URINE PH 7.5 (4.5-7.5); URINE SPECIFIC GRAVITY 1.012 (1.000-1.030); UROBILINOGEN NEG (NEG)
[2017-02-17 15:00] LABS: MANUAL MICROSCOPIC REQUIRED? NO; REVIEW REQ? NO
--- NOTE | 2017-02-17 15:20 | DIAGNOSTIC IMAGING REPORT ---
BILATERAL LOWER EXTREMITY VENOUS DOPPLER HISTORY: Pain. Edema. lower leg swelling, recent hospitalization for pneumonia. +Sob COMPARISON STUDY: None. FINDINGS: There is normal compressibility, flow, and augmentation within the bilateral lower extremity deep venous systems. IMPRESSION: No DVT within the right or left lower extremity. Electronically signed by: Gregorio Lagos M.D. 02/17/2017 3:19 PM Dictated Date/Time: 02/17/2017 3:19 PM
[2017-02-17] MEDS ORDERED: OPTIRAY 320 IV PRN (16:15)
--- NOTE | 2017-02-17 16:23 | DIAGNOSTIC IMAGING REPORT ---
CHEST CTA for PULMONARY ARTERIES CT DOSE: 456.03 mGy.cm HISTORY: Chest pain dyspnea TECHNIQUE: Multiaxial CT images of the chest were performed following the intravenous administration of contrast to evaluate the pulmonary arteries. Maximal intensity projection images were also obtained. COMPARISON STUDY: 02/12/2017 FINDINGS: There is a normal caliber thoracic aorta with no evidence for dissection. There is no evidence for pulmonary embolus. No pleural effusions. No pneumothorax. The liver and spleen are unremarkable. No mediastinal or hilar lymphadenopathy. The central airways are patent. The lungs demonstrate prominent parenchymal markings the lung bases. Extensive mucous plugging of the bronchi. IMPRESSION: 1. Study is negative for pulmonary embolus. 2. Emphysematous change with considerable mucus plugging of the mid to lower airways. 3. Mild bibasilar infiltrative change. Electronically signed by: Gregorio Lagos M.D. 02/17/2017 4:21 PM Dictated Date/Time: 02/17/2017 4:19 PM
--- NOTE | 2017-02-17 17:59 | EMERGENCY ROOM VISIT NOTE ---
History Report prepared by Josefa: Joshua Lockwood Under the Supervision of: Dr. Blayne Santacruz M.D. First contact with patient: 13:03 Chief Complaint: SWELLING TO EXTREMITY Stated Complaint: SWELLING IN BOTH LEGS History of Present Illness The patient is a 66 year old male who presents to the Emergency Room with complaints of bilateral leg edema that began last night. He was just in the ER for 6 days and discharged yesterday. He was seen for COPD exacerbation and bilateral pneumonia. His I&O balance for the hospitalization was -8000 mls. Last night, his legs began to swell. It has persisted into today as well. He is short of breath, but notes that it is how he felt when he left his hospitalization. This have never occurred before. He does not wear oxygen at home. He is having some mild right leg discomfort. He was given three new medications added to take: Prednisone, Lasix, and Augmentin. Patient denies LOC , headache, fevers, chills, diaphoresis, visual changes, neck pain, chest pain, nausea, vomiting, abdominal pain, back pain, melena, hematochezia, urinary symptoms, numbness, weakness, lymphadenopathy, rash, or other complaints. Source of History: patient Onset: last night Position: leg (bilateral) Symptom Intensity: moderate Quality: other (Edema) Timing: constant Associated Symptoms: + SOB Note: He has some right leg discomfort. Review of Systems See HPI for pertinent positives and negatives. A total of ten systems were reviewed and were otherwise negative. 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 Family History FH: cancer FH: hypertension Social History Smoking Status: Former Smoker Alcohol Use: none Drug Use: none Marital Status: Housing Status: lives with family Occupation Status: retired Current/Historical Medications Scheduled Amlodipine (Norvasc), 5 MG PO DAILY Amoxicillin & Pot Clavulanate (Augmentin 875-125 mg), 1 TAB PO BID Azathioprine (Imuran), 50 MG PO DAILY Budesonide/Formoterol Fumarate (Symbicort 160/4.5 Inhaler), 2 PUFF INH BID Colestipol Hcl (Colestipol Hcl), 1 GM PO BID Cyanocobalamin (Vitamin B-12), 100 MCG PO DAILY Furosemide (Lasix), 1 TAB PO DAILY Ipratropium-Albuterol (Duoneb), 1 TREATMENT INH TID Levothyroxine Sodium (Synthroid), 88 MCG PO QPM Loperamide HCl (Loperamide HCl), 2 MG PO BID Multivitamin (Multivitamin), 1 TAB PO DAILY Omeprazole (Prilosec), 20 MG PO QAM Prednisone (Prednisone), 40 MG PO DAILY Tiotropium [place] (Spiriva Handihaler), 1 PUFF INH QAM Zolpidem Tartrate (Ambien), 10 MG PO HS Scheduled PRN Albuterol Sulf (Proventil 0.083% 2.5MG/3ML), 2.5 MG INH Q4 PRN for Shortness of Breath Albuterol Sulfate (Proair Respiclick), 2 PUFFS INH QID PRN for SOB/Wheezing Guaifenesin-Codeine (Codeine/Guaifenesin 100-10 mg/5Ml), 5 ML PO HS PRN for Cough Hydrocodone/Acetaminophen 5MG/325MG ([place] 5MG/325MG), 1 TABLET PO Q4H PRN for Pain Allergies Coded Allergies: No Known Allergies (Unverified , 02/17/17) Physical Exam Vital Signs Date Time Temp Pulse Resp B/P Pulse Ox O2 Delivery O2 Flow Rate FiO2 02/17/17 17:14 73 20 153/89 90 Nasal Cannula 2.0 02/17/17 17:05 72 02/17/17 16:06 68 22 149/82 93 Nasal Cannula 2.0 02/17/17 15:15 74 18 135/87 91 Nasal Cannula 2.0 02/17/17 14:42 70 21 157/85 90 Nasal Cannula 2.0 02/17/17 13:10 88 Room Air 02/17/17 13:10 93 Nasal Cannula 2.0 02/17/17 13:09 68 02/17/17 12:42 36.5 74 20 140/81 91 Room Air Physical Exam GENERAL: Awake, alert, mildly dyspneic-appearing, in no major distress HENT: Normocephalic, atraumatic. Oropharynx unremarkable. EYES: Normal conjunctiva. Sclera non-icteric. NECK: Supple. No nuchal rigidity. FROM. No JVD. RESPIRATORY: Coarse breath sounds, but otherwise clear bilaterally. CARDIAC: Regular rate, normal rhythm. Extremities warm and well perfused. Pulses equal. ABDOMEN: Soft, non-distended. No tenderness to palpation. No rebound or guarding. No masses. RECTAL: Deferred. MUSCULOSKELETAL: Chest examination reveals no tenderness. The back is symmetrical on inspection without obvious abnormality. There is no CVA tenderness to palpation. No joint edema. LOWER EXTREMITIES: Right leg is larger than the left and both are non-tender. 2 + edema on the right and 1+ on the left. No discoloration. NEURO: Normal sensorium. No sensory or motor deficits noted. SKIN: No rash or jaundice noted. Medical Decision & Procedures ER Provider Diagnostic Interpretation: Radiology results as stated below per my review and radiologist interpretation: CHEST ONE VIEW PORTABLE CLINICAL HISTORY: EVALUATE RESPIRATORY DISTRESS. DYSPNEA dyspnea COMPARISON STUDY: 02/10/2017 FINDINGS: Emphysematous change. Chronic basilar fibrotic change unaltered from the prior study. Upper lungs are clear. IMPRESSION: Emphysematous and chronic change. Electronically signed by: Gregorio Lagos M.D. 02/17/2017 1:56 PM Dictated Date/Time: 02/17/2017 1:55 PM BILATERAL LOWER EXTREMITY VENOUS DOPPLER HISTORY: Pain. Edema. lower leg swelling, recent hospitalization for pneumonia. +Sob COMPARISON STUDY: None. FINDINGS: There is normal compressibility, flow, and augmentation within the bilateral lower extremity deep venous systems. IMPRESSION: No DVT within the right or left lower extremity. Electronically signed by: Gregorio Lagos M.D. 02/17/2017 3:19 PM Dictated Date/Time: 02/17/2017 3:19 PM CHEST CTA for PULMONARY ARTERIES CT DOSE: 456.03 mGy.cm HISTORY: Chest pain dyspnea TECHNIQUE: Multiaxial CT images of the chest were performed following the intravenous administration of contrast to evaluate the pulmonary arteries. Maximal intensity projection images were also obtained. COMPARISON STUDY: 02/12/2017 FINDINGS: There is a normal caliber thoracic aorta with no evidence for dissection. There is no evidence for pulmonary embolus. No pleural effusions. No pneumothorax. The liver and spleen are unremarkable. No mediastinal or hilar lymphadenopathy. The central airways are patent. The lungs demonstrate prominent parenchymal markings the lung bases. Extensive mucous plugging of the bronchi. IMPRESSION: 1. Study is negative for pulmonary embolus. 2. Emphysematous change with considerable mucus plugging of the mid to lower airways. 3. Mild bibasilar infiltrative change. Electronically signed by: Gregorio Lagos M.D. 02/17/2017 4:21 PM Dictated Date/Time: 02/17/2017 4:19 PM Laboratory Results 02/17/17 13:50 Red Blood Count 4.71, Mean Corpuscular Volume 94.1, Mean Corpuscular Hemoglobin 32.3, Mean Corpuscular Hemoglobin Concent 34.3, Mean Platelet Volume 10.1, Neutrophils (%) (Auto) 90.1, Lymphocytes (%) (Auto) 4.3, Monocytes (%) (Auto) 3.3, Eosinophils (%) (Auto) 0.2, Basophils (%) (Auto) 0.2, Neutrophils # (Auto) 9.14, Lymphocytes # (Auto) 0.44, Monocytes # (Auto) 0.33, Eosinophils # (Auto) 0.02, Basophils # (Auto) 0.02 02/17/17 13:50 Test 02/17/17 13:50 02/17/17 14:40 White Blood Count 10.14 K/uL (4.8-10.8) Red Blood Count 4.71 M/uL (4.7-6.1) Hemoglobin 15.2 g/dL (14.0-18.0) Hematocrit 44.3 % (42-52) Mean Corpuscular Volume 94.1 fL (80-100) Mean Corpuscular Hemoglobin 32.3 pg (25-34) Mean Corpuscular Hemoglobin Concent 34.3 g/dl (32-36) Platelet Count 206 K/uL (130-400) Mean Platelet Volume 10.1 fL (7.4-10.4) Neutrophils (%) (Auto) 90.1 % Lymphocytes (%) (Auto) 4.3 % Monocytes (%) (Auto) 3.3 % Eosinophils (%) (Auto) 0.2 % Basophils (%) (Auto) 0.2 % Neutrophils # (Auto) 9.14 K/uL (1.4-6.5) Lymphocytes # (Auto) 0.44 K/uL (1.2-3.4) Monocytes # (Auto) 0.33 K/uL (0.11-0.59) Eosinophils # (Auto) 0.02 K/uL (0-0.5) Basophils # (Auto) 0.02 K/uL (0-0.2) RDW Standard Deviation 49.6 fL (36.4-46.3) RDW Coefficient of Variation 14.4 % (11.5-14.5) Immature Granulocyte % (Auto) 1.9 % Immature Granulocyte # (Auto) 0.19 K/uL (0.00-0.02) Anion Gap 9.0 mmol/L (3-11) Est Creatinine Clear Calc Drug Dose 84.0 ml/min Estimated GFR () 96.3 Estimated GFR (Non- 83.1 BUN/Creatinine Ratio 19.1 (10-20) Calcium Level 8.2 mg/dl (8.5-10.1) Total Bilirubin 1.2 mg/dl (0.2-1) Aspartate Amino Transf (AST/SGOT) 21 U/L (15-37) Alanine Aminotransferase (ALT/SGPT) 48 U/L (12-78) Alkaline Phosphatase 61 U/L (45-117) Total Creatine Kinase 104 U/L (39-308) Creatine Kinase MB 3.5 ng/ml (0.5-3.6) Creatine Kinase MB Ratio 3.4 (0-3.0) Troponin I < 0.015 ng/ml (0-0.045) Pro-B-Type Natriuretic Peptide 68 pg/ml (0-900) Total Protein 6.8 gm/dl (6.4-8.2) Albumin 3.4 gm/dl (3.4-5.0) Globulin 3.4 gm/dl (2.5-4.0) Albumin/Globulin Ratio 1.0 (0.9-2) Urine Color YELLOW Urine Appearance CLEAR (CLEAR) Urine pH 7.5 (4.5-7.5) Urine Specific [place] 1.012 (1.000-1.030) Urine Protein NEG (NEG) Urine Glucose (UA) NEG (NEG) Urine Ketones NEG (NEG) Urine Occult Blood NEG (NEG) Urine Nitrite NEG (NEG) Urine Bilirubin NEG (NEG) Urine Urobilinogen NEG (NEG) Urine Leukocyte Esterase NEG (NEG) Laboratory results reviewed by me Medications Administered Medications (Trade) Dose Ordered Sig/Jeffery Route Start Time Stop Time Status Last Admin Dose Admin Albuterol/ Ipratropium (Duoneb) 3 ml NOW STAT INH 02/17/17 13:12 02/17/17 13:13 DC 02/17/17 13:22 3 ML Albuterol/ Ipratropium (Duoneb) 3 ml NOW STAT INH 02/17/17 16:44 02/17/17 16:45 DC 02/17/17 16:52 3 ML ECG Indication: SOB/dyspnea Rate (beats per minute): 70 Rhythm: normal sinus Findings: no acute ischemic change, no ectopy ED Course 1303: The patient was evaluated in room C5. A complete history and physical exam was performed. 1312: Ordered DuoNeb 3 ml INH 1644: Ordered DuoNeb 3 ml INH 1645: Upon reexamination, the patient was resting. I discussed the test results and treatment plan with him. The patient will be evaluated by Dr. Aleman - [facility] [place], for further management. 1700: I reassessed the patient at this time. He told me that he does not want to stay in the hospital and would like to go home. We are going to try to get him Oxygen for his home. 1747: We were not successful in obtaining oxygen for the patient to be discharged. He will be staying for further management with Dr. Aleman of [facility]. Medical Decision Triage Nursing notes reviewed. The patient's presentation and history were concerning for leg swelling and breathing issues. Etiologies such as pneumonia, COPD, reactive airway disease, CHF, cardiac ischemia, pulmonary embolism, pneumothorax, musculoskeletal, infections, gastrointestinal, as well as others were entertained. The patient was evaluated. He was requiring supplemental oxygen. He had lower extremity edema. Rectal review indicated that he diuresed almost a liters during his hospital stay. He was given a nebulizer treatment. The patient's blood work revealed an unremarkable CBC, chemistry panel, BNP, cardiac markers. His chest x-ray showed chronic changes. Ultrasound imaging was performed and did not reveal any evidence of DVT. The patient had a CT PE study performed and this did not reveal any evidence of pulmonary embolus however the patient did have significant mucous plugging. He was given a second nebulizer treatment. The patient preferred to try and go home. I did discuss the case with Dr. Boogie Young of the hospitalist service. He felt trying to arrange home oxygen with close pulmonary follow-up would be reasonable. The patient wished for this option. Case management met with the patient. Unfortunately given the time of day and situation home oxygen was unable to be set up for him. Therefore Dr. Boogie Young was contacted again and the patient will be evaluated for management in the hospital. Case management did notify inpatient Case management of the situation and this will be continued to be followed by them. The chart was completed utilizing [employer] Speech voice recognition software. Grammatical errors, random word insertions, pronoun errors, and incomplete sentences are an occasional consequence of this system due to software limitations, ambient noise, and hardware issues. Any formal questions or concerns about the content, text, or information contained within the body of this dictation should be directly addressed to the physician for clarification. Consults Time Called: 1640 Consulting Physician: Dr. Aleman - [facility] Returned Call: [phone] He will be evaluating the patient for further management and care. Impression Primary Impression: SOB (shortness of breath) Additional Impressions: Lower extremity edema Mucus plugging of bronchi Scribe Attestation The scribe's documentation has been prepared under my direction and personally reviewed by me in its entirety. I confirm that the note above accurately reflects all work, treatment, procedures, and medical decision making performed by me. Departure Information Dispostion Being Evaluated By Hospitalist Jocelyne Palacios M.D. (PCP) Patient Instructions My [facility] Problem Qualifiers
[2017-02-17 18:00] VITALS: Ht 182.9 cm; Wt 88.3 kg
[2017-02-17] MEDS ORDERED: MAGNESIUM HYDROXIDE SUSP 30 ML UDC PO PRN (18:30)
[2017-02-17] MEDS ORDERED: POLYETHYLENE (MIRALAX) 17 GM PACK PO PRN (18:30)
[2017-02-17] MEDS ORDERED: ALUMINUM/MAGNESIUM/SIMETH (MAALOX MAX) 30 ML UDC PO PRN (18:30)
[2017-02-17] MEDS ORDERED: ONDANSETRON INJ 2 MG/ML 2 ML VIAL IV PRN (18:30)
[2017-02-17] MEDS ORDERED: ACETAMINOPHEN 325 MG TAB PO PRN (18:30)
[2017-02-17] MEDS ORDERED: ZOLPIDEM TARTRATE 5 MG TAB PO PRN ×2 (18:30)
--- NOTE | 2017-02-17 18:30 | History and Physical ---
History & Physical Date & Time of Service: February 17, 2017 at 17:50 Chief Complaint: Swelling In Both Legs Primary Care Physician: Jocelyne Cook M.D. History of Present Illness Source: patient, family, partner, clinic records 66M discharged 1 day ago for a COPD exacerbation - new DC meds include on Prednisone 40mg, Lasix 20mg and Augmentin, p/w a one day history of bilateral lower extremity swelling. Pt states that he wasn't drinking too many liquids out of the ordinary. Pt denies chest pain. Pt states that his SOB and dyspnea is unchanged from how it was on discharge. His chief complaint is primarily the swelling in his lower extremities. He was not wearing home oxygen. Was found to have an oxygen saturation in the high 80s on room air. ROS: Pt states that he did feel hot yesterday, isn't moving around as much because of his COPD exacerbation. No chest pain, no syncope, no palpitations. PMHx: Hypothyroidism, GERD, insomnia, Crohns disease/IBS (well controlled on his meds and last colonoscopy was normal)( SHx: 35 pack year of smoking, [place] exposed to a lot of exhaust and fumes. Past Medical/Surgical History Medical Problems: (1) Bronchitis Status: Resolved (2) Emphysema, unspecified Status: Resolved (3) Hypertension Status: Chronic (4) Pneumonia Status: Resolved Family History FH: cancer FH: hypertension Social History Smoking Status: Former Smoker Drug Use: none Marital Status: Housing status: lives with family Occupational Status: retired Multi-Drug Resistant Organisms History of MDRO: No Allergies Coded Allergies: No Known Allergies (Unverified , 02/17/17) Home Medications Scheduled Amlodipine (Norvasc), 5 MG PO DAILY Amoxicillin & Pot Clavulanate (Augmentin 875-125 mg), 1 TAB PO BID Azathioprine (Imuran), 50 MG PO BID Budesonide/Formoterol Fumarate (Symbicort 160/4.5 Inhaler), 2 PUFF INH BID Colestipol Hcl (Colestipol Hcl), 1 GM PO BID Cyanocobalamin (Vitamin B-12), 100 MCG PO DAILY Furosemide (Lasix), 1 TAB PO DAILY Ipratropium-Albuterol (Duoneb), 1 TREATMENT INH TID Levothyroxine Sodium (Synthroid), 88 MCG PO QPM Loperamide HCl (Loperamide HCl), 2 MG PO BID Multivitamin (Multivitamin), 1 TAB PO DAILY Omeprazole (Prilosec), 20 MG PO QAM Prednisone (Prednisone), 40 MG PO DAILY Tiotropium [place] (Spiriva Handihaler), 1 PUFF INH QAM Zolpidem Tartrate (Ambien), 10 MG PO HS Scheduled PRN Albuterol Sulf (Proventil 0.083% 2.5MG/3ML), 2.5 MG INH Q4 PRN for Shortness of Breath Albuterol Sulfate (Proair Respiclick), 2 PUFFS INH QID PRN for SOB/Wheezing Guaifenesin-Codeine (Codeine/Guaifenesin 100-10 mg/5Ml), 5 ML PO HS PRN for Cough Hydrocodone/Acetaminophen 5MG/325MG ([place] 5MG/325MG), 1 TABLET PO Q4H PRN for Pain Review of Systems Constitutional: + fever, No chills Respiratory: No cough, No shortness of breath, No sputum Cardiovascular: No chest pain Abdomen: No constipation, No diarrhea, No nausea, No pain, No vomiting Genitourinary - Male: No dysuria Neurologic: No paralysis Endocrine: No fatigue Physical Exam Vital Signs Date Time Temp Pulse Resp B/P Pulse Ox O2 Delivery O2 Flow Rate FiO2 02/17/17 17:14 73 20 153/89 90 Nasal Cannula 2.0 02/17/17 17:05 72 02/17/17 16:06 68 22 149/82 93 Nasal Cannula 2.0 02/17/17 15:15 74 18 135/87 91 Nasal Cannula 2.0 02/17/17 14:42 70 21 157/85 90 Nasal Cannula 2.0 02/17/17 13:10 88 Room Air 02/17/17 13:10 93 Nasal Cannula 2.0 02/17/17 13:09 68 02/17/17 12:42 36.5 74 20 140/81 91 Room Air General Appearance: WD/WN, no apparent distress, + obese Respiratory/Chest: chest non-tender, no respiratory distress, no accessory muscle use, + crackles (bibasilar), + rales (posterior all lung [place]), + wheezing (slight expiratory wheezing, very faint anterior superior lung [place]) Abdomen/GI: normal bowel sounds, non tender, soft, no organomegaly (difficult to assess because of central obesity) Extremities/Musculoskelatal: normal inspection, no calf tenderness, normal capillary refill, normal range of motion, + pertinent finding (2+ edema over the lower extremities below the knee bilaterally, right > left) Neurologic/Psych: no motor/sensory deficits, alert, normal mood/affect, oriented x 3 Diagnostics Laboratory Results Results Past 24 Hours Test 02/17/17 13:50 02/17/17 14:40 Range/Units White Blood Count 10.14 4.8-10.8 K/uL Red Blood Count 4.71 4.7-6.1 M/uL Hemoglobin 15.2 14.0-18.0 g/dL Hematocrit 44.3 42-52 % Mean Corpuscular Volume 94.1 80-100 fL Mean Corpuscular Hemoglobin 32.3 25-34 pg Mean Corpuscular Hemoglobin Concent 34.3 32-36 g/dl Platelet Count 206 130-400 K/uL Mean Platelet Volume 10.1 7.4-10.4 fL Neutrophils (%) (Auto) 90.1 % Lymphocytes (%) (Auto) 4.3 % Monocytes (%) (Auto) 3.3 % Eosinophils (%) (Auto) 0.2 % Basophils (%) (Auto) 0.2 % Neutrophils # (Auto) 9.14 1.4-6.5 K/uL Lymphocytes # (Auto) 0.44 1.2-3.4 K/uL Monocytes # (Auto) 0.33 0.11-0.59 K/uL Eosinophils # (Auto) 0.02 0-0.5 K/uL Basophils # (Auto) 0.02 0-0.2 K/uL RDW Standard Deviation 49.6 36.4-46.3 fL RDW Coefficient of Variation 14.4 11.5-14.5 % Immature Granulocyte % (Auto) 1.9 % Immature Granulocyte # (Auto) 0.19 0.00-0.02 K/uL Sodium Level 138 136-145 mmol/L Potassium Level 3.7 3.5-5.1 mmol/L Chloride Level 100 98-107 mmol/L Carbon Dioxide Level 29 21-32 mmol/L Anion Gap 9.0 3-11 mmol/L Blood Urea Nitrogen 18 7-18 mg/dl Creatinine 0.95 0.60-1.40 mg/dl Est Creatinine Clear Calc Drug Dose 84.0 ml/min Estimated GFR () 96.3 Estimated GFR (Non- 83.1 BUN/Creatinine Ratio 19.1 10-20 Random Glucose 114 70-99 mg/dl Calcium Level 8.2 8.5-10.1 mg/dl Total Bilirubin 1.2 0.2-1 mg/dl Aspartate Amino Transf (AST/SGOT) 21 15-37 U/L Alanine Aminotransferase (ALT/SGPT) 48 12-78 U/L Alkaline Phosphatase 61 45-117 U/L Total Creatine Kinase 104 39-308 U/L Creatine Kinase MB 3.5 0.5-3.6 ng/ml Creatine Kinase MB Ratio 3.4 0-3.0 Troponin I < 0.015 0-0.045 ng/ml Pro-B-Type Natriuretic Peptide 68 0-900 pg/ml Total Protein 6.8 6.4-8.2 gm/dl Albumin 3.4 3.4-5.0 gm/dl Globulin 3.4 2.5-4.0 gm/dl Albumin/Globulin Ratio 1.0 0.9-2 Urine Color YELLOW Urine Appearance CLEAR CLEAR Urine pH 7.5 4.5-7.5 Urine Specific [place] 1.012 1.000-1.030 Urine Protein NEG NEG Urine Glucose (UA) NEG NEG Urine Ketones NEG NEG Urine Occult Blood NEG NEG Urine Nitrite NEG NEG Urine Bilirubin NEG NEG Urine Urobilinogen NEG NEG Urine Leukocyte Esterase NEG NEG Microbiology Results 02/17/17 Blood Culture, Received Pending 02/17/17 Blood Culture, Received Pending Diagnostic Radiology CHEST CTA for PULMONARY ARTERIES CT DOSE: 456.03 mGy.cm HISTORY: Chest pain dyspnea TECHNIQUE: Multiaxial CT images of the chest were performed following the intravenous administration of contrast to evaluate the pulmonary arteries. Maximal intensity projection images were also obtained. COMPARISON STUDY: 02/12/2017 FINDINGS: There is a normal caliber thoracic aorta with no evidence for dissection. There is no evidence for pulmonary embolus. No pleural effusions. No pneumothorax. The liver and spleen are unremarkable. No mediastinal or hilar lymphadenopathy. The central airways are patent. The lungs demonstrate prominent parenchymal markings the lung bases. Extensive mucous plugging of the bronchi. IMPRESSION: 1. Study is negative for pulmonary embolus. 2. Emphysematous change with considerable mucus plugging of the mid to lower airways. 3. Mild bibasilar infiltrative change. BILATERAL LOWER EXTREMITY VENOUS DOPPLER HISTORY: Pain. Edema. lower leg swelling, recent hospitalization for pneumonia. +Sob COMPARISON STUDY: None. FINDINGS: There is normal compressibility, flow, and augmentation within the bilateral lower extremity deep venous systems. IMPRESSION: No DVT within the right or left lower extremity. CHEST ONE VIEW PORTABLE CLINICAL HISTORY: EVALUATE RESPIRATORY DISTRESS. DYSPNEA dyspnea COMPARISON STUDY: 02/10/2017 FINDINGS: Emphysematous change. Chronic basilar fibrotic change unaltered from the prior study. Upper lungs are clear. IMPRESSION: Emphysematous and chronic change. EKG Normal sinus rhythm Normal ECG When compared with ECG of 12-FEB-2017 06:33, No significant change was found Impression Assessment and Plan 66M discharged 1 day ago for a COPD exacerbation - new discharge meds include on Prednisone 40mg, Lasix 20mg and Augmentin BID, also pt's Amlodipine which was held on admission was restarted. Pt return to the ER c/o a one day history of bilateral lower extremity swelling with no worsening of his breathing. Echo was done 5 days ago and showed an EF of 65-70% with no wall motion abnormalities , no LV hypertrophy and no significant valve abnormalities. Pt has no significant cardiac history. Today's chest X-ray showed no evidence of pulmonary edema. Likely pt is experiencing Amlodipine side effects from restarting or retaining fluid. Bilateral Lower Extremity Swelling - Pt had signs of pulmonary edema in last hospitalization and diuresed 8L but today's X-ray does not show any pulm edema. - Likely fluid retention or side effect from restarting Amlodipine which was held last admission. - Will diurese with Lasix 40mg BID PO. - Continue to monitor I&Os. Hypoxia with recent COPD exacerbation - Pt sats in the high 80s on room air, 92% on 2LNC. - Pt likely will require home oxygen of we cannot wean to room air. - Dr. Alamo is the pt's stoner hand and a discussion had been whether the pt requires a speech swallow test for aspiration. Will hold off on pulm consult because pt has close pulm follow up already. - c/w home pulm medications: Proventil 2.5mg INH Q4PRN, Symbicort 2pufffs INH BID, Codein/Guaifenesin 5ml PO QHS, Spiriva QAM. - Will increase Duonebs to Q4H WA - c/w Prednisone 40mg PO daily - c/w Augmentin 875-125 BID. - Will order manager social services for home oxygen. - Will order two step. Hypothyroid - c/w Synthroid 88mcg daily. Crohn's - c/w Azathioprine 50mg daily HTN - HOLD Amlodipine 5mg PO daily. (This is not a new med for the pt, but was held on his last hospital stay, will hold, recommend holding this as outpatient) . - BP will likely be controlled with increased Lasix dose. HLD- c/w Colestipol 1mg PO BID Insomnia - Continue zolpidem tartrate 10 mg by mouth at bedtime. Diarrhea- Continue loperamide 2 mg by mouth twice a day. GERD- c/w PPI daily DVT Proph- Lovenox 30mg Inj daily. Dispo- Med Surg, Low Sodium Diet, Full Code Resident Physician Supervision Note: I interviewed and examined the patient. Discussed with Dr. Crow and agree with findings and plan as documented in the note. Any exceptions or clarifications are listed here: see below Documented By: Boogie Lealenour feeling ok on O2, sick of being in hospital, feels OK to do the rest of his w/u and treatment as outpt - just with O2 for supportive care leg edema started after discharge but before resuming amlodipine he believes. ros otherwise negative except for as above vitals noted nad breathing unlabored on O2 no pallor or icterus a/p hypoxia - appearing to be mucous plugging. continue abx and steroids as per outpt. increase pulmonary toilet (duonebs q4wa), flutter valve, vibration vest. if fails all this might need therapeutic bronch - but prefers to pursue this as outpt. 2-step ordered, anticipate home on home O2 tomorrow as soon as can be set up edema - no CHF, no DVT. ?dependant from fluid retention from meds/steroids/etc that he was given while admitted, but didn't notice because he was in bed so much -- and unearthed once his legs were more dependant. vs ?possibly related to amlodipine as considered by R1. for now substitute lisinopril, f/u BMP 1wk Resident Involvement: Resident Care Provided Care Provided: Adult Hospital Medicine
[2017-02-17] MEDS ORDERED: NON-FORMULARY MEDICATION (Albuterol Sulfate (Proair Respiclick) 2 PUFFS) INH PRN (18:45)
[2017-02-17] MEDS ORDERED: ALBUTEROL 0.083% NEBU SOLN 3 ML VIAL INH PRN (18:45)
[2017-02-17] MEDS ORDERED: HYDROCODONE/ACETAMOPHEN 5/325MG TAB PO PRN (18:45)
[2017-02-17] MEDS ORDERED: GUAIFENESIN/CODEINE 200MG/20MG 10ML UDC PO PRN (18:45)
[2017-02-17 18:56] LABS: PROTHROMBIN TIME (PATIENT) 10.2 SECONDS (9.0-12.0)
[2017-02-17] MEDS ORDERED: IV FLUIDS COMPLETED PRN (19:45)
[2017-02-17] MEDS: COLESTIPOL HCL 1 GM TAB PO SCH (19:59)
[2017-02-17 20:00] VITALS: BP 149/84; PULSE 61; TEMP 36.6; O2SAT 96
[2017-02-17] MEDS ORDERED: BUDESONIDE/FORMOTEROL FUMARATE 160/4.5 60 PUFFS/INHALER INH SCH (20:00)
[2017-02-17] MEDS: ALBUT/IPRATROP 3MG/0.5MG NEB 3 ML VIAL INH SCH (20:00)
[2017-02-17] MEDS ORDERED: ENOXAPARIN 40 MG/0.4 ML SYR SQ SCH (20:00)
[2017-02-17] MEDS ORDERED: ALBUT/IPRATROP 3MG/0.5MG NEB 3 ML VIAL INH SCH (21:00)
[2017-02-17] MEDS ORDERED: ZOLPIDEM TARTRATE 10 MG TAB PO SCH (21:00)
[2017-02-17] MEDS ORDERED: FUROSEMIDE 20 MG TAB PO SCH (21:00)
[2017-02-17] MEDS: AMOXICILLIN/CLAVULANATE TAB 875 MG TAB PO SCH (21:13)
[2017-02-17] MEDS: LOPERAMIDE HCL 2 MG CAP PO SCH (21:14)
[2017-02-17] MEDS: AZATHIOPRINE 50 MG TAB PO SCH (21:14)
[2017-02-17 22:35] VITALS: BP 133/81; PULSE 65; TEMP 36.4; O2SAT 94
[2017-02-18] VITALS: O2SAT 96
[2017-02-18] MEDS ORDERED: LEVOTHYROXINE 88 MCG TAB PO SCH (06:30)
[2017-02-18 07:16] VITALS: BP 136/77; PULSE 64; TEMP 36.4; O2SAT 92
[2017-02-18] MEDS: ALBUT/IPRATROP 3MG/0.5MG NEB 3 ML VIAL INH SCH ×2 (07:38→11:27)
[2017-02-18 07:39] VITALS: PULSE 70
[2017-02-18] MEDS ORDERED: BUDESONIDE/FORMOTEROL FUMARATE 160/4.5 60 PUFFS/INHALER INH SCH (08:00)
[2017-02-18] MEDS ORDERED: FUROSEMIDE 40 MG TAB PO SCH ×2 (08:00→09:00)
[2017-02-18] MEDS ORDERED: PANTOprazole SOD 40 MG TAB PO SCH (08:00)
[2017-02-18] MEDS ORDERED: LISINOPRIL 10 MG TAB PO SCH (08:00)
[2017-02-18] MEDS ORDERED: TIOTROPIUM BROMIDE 5 PUFF/90 MCG INH INH SCH (08:00)
[2017-02-18] MEDS ORDERED: MULTIVITAMIN TAB PO SCH (08:00)
[2017-02-18] MEDS: AMOXICILLIN/CLAVULANATE TAB 875 MG TAB PO SCH (08:11)
[2017-02-18] MEDS: LOPERAMIDE HCL 2 MG CAP PO SCH (08:11)
[2017-02-18] MEDS: AZATHIOPRINE 50 MG TAB PO SCH (08:11)
[2017-02-18] MEDS: COLESTIPOL HCL 1 GM TAB PO SCH (08:11)
[2017-02-18] MEDS ORDERED: AMLODIPINE BESYLATE 5 MG TAB PO SCH (09:00)
[2017-02-18 11:27] VITALS: PULSE 81; O2SAT 92
[2017-02-18] MEDS ORDERED: FURO20TA PO (12:25)
--- NOTE | 2017-02-18 12:30 | Discharge Instructions ---
Discharge Instructions Date of Service February 18, 2017. Admission Reason for Admission: Hypoxia; Lower Extremity Edema Discharge Discharge Diagnosis / Problem: Hypoxia, mucous plugging, edema (resolved) Discharge Goals Goal(s): Improve function, Increase independence, Diagnostic testing (swallow evaluation) Activity Recommendations Activity Limitations: resume your previous activity Lifting Limitations: none Exercise/Sports Limitations: as tolerated May Resume Sexual Activity: when tolerated Shower/Bathe: no limitations Driving or Machine Use: no limitations . Instructions / Follow-Up Instructions / Follow-Up Medications: complete Augmentin and Prednisone as previously prescribed - LASIX: increase to 40mg in the morning, you can double up on your 20mg tablets - OXYGEN: 2 liters at all times, script sent to [facility] As discussed previously, you need to be evaluated by speech and swallow therapy as outpatient and likely you need a video swallow study the number for outpatient speech and swallow therapy is [phone], please call tomorrow AM and request earliest appointment, I will place referral the number for scheduling for video swallow study is [phone], you would need to call ahead of time to schedule this imaging study, I will give you script results will go to Dr. Alamo and Dr. Cook and they will give you further instructions FOLLOW UP - please follow up with Dr. Cook and Dr. Alamo as previously instructed on last discharge Current Hospital Diet Patient's current hospital diet: Low Sodium Diet (2gm Na) Discharge Diet Recommended Diet: Low Sodium Diet (2gm Na) Fluid Restriction: 2000 ml (8 cups) Pending Studies Studies pending at discharge: no Medical Emergencies . Who to Call and When: Medical Emergencies: If at any time you feel your situation is an emergency, please call 911 immediately. . Non-Emergent Contact Non-Emergency issues call your: Primary Care Provider, Brush Operator Call Non-Emergent contact if: you have a fever, you have any medication questions . . "Provider Documentation" section prepared by Antonio Munoz. . VTE Core Measure Inpt VTE Proph given/why not?: SCD's [place] Drug Monitoring Program Search Results: no issues identified
--- NOTE | 2017-02-18 12:42 | Discharge Summary ---
Discharge Summary Date of Service February 18, 2017. Discharge Summary Admission Date: February 17, 2017 at 18:34 Discharge Date: February 18, 2017 Discharge Disposition: Home Principal Diagnosis: Hypoxia Problems/Secondary Diagnoses: Lower extremity edema, resolved COPD Pneumonia, suspected aspiration Chronic diastolic heart failure Procedures: CT chest - no PE, bilateral mucous plugging in lower lung [place] Doppler bilaterally - no evidence of DVT Consultations: none, last admission was seen by Pulmonology Medication Reconciliation Changed Medications: Furosemide (Lasix) 20 Mg Tab 2 TAB PO DAILY for 30 Days, #60 TAB 3 Refills (Changed from: 1 TAB; 30) Continued Medications: Albuterol Sulf (Proventil 0.083% 2.5MG/3ML) 2.5 Mg/3 Ml Nebu 2.5 MG INH Q4 PRN for Shortness of Breath, EA Albuterol Sulfate (Proair Respiclick) 108 Mcg/Act Aer 2 PUFFS INH QID PRN for SOB/Wheezing Amlodipine (Norvasc) 5 Mg Tab 5 MG PO DAILY, TAB Amoxicillin & Pot Clavulanate (Augmentin 875-125 mg) 1 Tab Tab 1 TAB PO BID, #6 TAB Azathioprine (Imuran) 50 Mg Tab 50 MG PO BID, TAB Budesonide/Formoterol Fumarate (Symbicort 160/4.5 Inhaler) 120 Puffs/ Aero 2 PUFF INH BID, #30 Colestipol Hcl (Colestipol Hcl) 1 Gm Tab 1 GM PO BID Cyanocobalamin (Vitamin B-12) 100 Mcg Tab 100 MCG PO DAILY, TAB Guaifenesin-Codeine (Codeine/Guaifenesin 100-10 mg/5Ml) 1 Luz Maria Luz Maria 5 ML PO HS PRN for Cough, #50 ML 2 Refills Hydrocodone/Acetaminophen 5MG/325MG ([place] 5MG/325MG) Tab 1 TABLET PO Q4H PRN for Pain, TAB PRN PAIN Ipratropium-Albuterol (Duoneb) 3 Ml Nebu 1 TREATMENT INH TID, INHA Levothyroxine Sodium (Synthroid) 88 Mcg Tab 88 MCG PO QPM, #90 Loperamide HCl (Loperamide HCl) 2 Mg Cap 2 MG PO BID Multivitamin (Multivitamin) Tab 1 TAB PO DAILY, TAB Omeprazole (Prilosec) 20 Mg Cap 20 MG PO QAM, #90 Prednisone (Prednisone) 10 Mg Tab 40 MG PO DAILY for 12 Days, #48 TABS 0 Refills start 02/17, take 40mg daily x 3 days then 30mg daily x 3 days then 20mg daily x 3 days then 10mg daily x 3 days then stop Tiotropium [place] (Spiriva Handihaler) 5 Puff/90 Mcg Aerp 1 PUFF INH QAM Zolpidem Tartrate (Ambien) 10 Mg Tab 10 MG PO HS, TAB Discharge Exam Patient feeling better, less coughing, no further leg edema this AM. Feels ready to go home once oxygen arranged. Reviewed CT with Dr. Alamo, he recommends swallow evaluation. The patient would like to go home and have swallow evaluation as outpatient. Gave him scripts and phone numbers to call tomorrow. Review of Systems: Constitutional: No chills, No fatigue, No fever, No problem reported, No sweats, No weakness, No weight loss Eyes: No diplopia, No discharge, No eye pain, No problem reported, No redness, No worsening of vision ENT: No dental problems, No hearing loss, No nasal symptoms, No problem reported, No sore throat, No tinnitus, No trouble swallowing, No unusual epistaxis Respiratory: + cough, + dyspnea on exertion, No dyspnea at rest, No hemoptysis, No shortness of breath, No sputum, No wheezing Cardiovascular: + edema (minimal in LE bilaterally, much improved since admission), No PND, No chest pain, No claudication, No orthopnea, No palpitations, No problem reported Abdomen: No GI bleeding, No constipation, No diarrhea, No nausea, No pain, No problem reported, No vomiting Musculoskeletal: No calf pain, No joint pain, No muscle pain, No problem reported, No swelling Genitourinary - Male: No dysuria, No hematuria, No urinary frequency, No urinary urgency Neurologic: No balance problems, No memory loss, No numbness/tingling, No paralysis, No problem reported, No vertigo, No weakness Psychiatric: No anhedonism, No anxiety, No depression symptoms, No insomnia , No problem reported, No substance abuse Endocrine: No excessive thirst, No excessive urination, No fatigue, No problem reported Hematologic / Lymphatic: No abnormal bleeding/bruising, No clotting problems , No night sweats, No problem reported, No swollen lymph nodes Integumentary: No bleeding, No color change, No itch, No new/changing skin lesions, No problem reported, No rash Physical Exam: General Appearance: WD/WN, no apparent distress Eyes: normal inspection, EOMI, sclerae normal ENT: normal ENT inspection, hearing grossly normal, pharynx normal Neck: supple, no adenopathy, no JVD, trachea midline Respiratory/Chest: chest non-tender, no respiratory distress, no accessory muscle use, + rhonchi (bilaterally) Cardiovascular: regular rate, rhythm, no gallop, no JVD, no murmur, normal peripheral pulses Abdomen / GI: normal bowel sounds, non tender, soft, no organomegaly Extremities: normal inspection, no calf tenderness, normal capillary refill , normal range of motion, pelvis stable, + pedal edema (trace edema bilaterally in ankles) Neurologic/Psychiatric: cable operator II-XII nml as tested, no motor/sensory deficits , alert, normal mood/affect, normal reflexes, oriented x 3 Skin: normal color, warm/dry, no rash Hospital Course 66 yo male just discharged on 02/16 after extended stay for pneumonia, suspected due to aspiration, COPD exacerbation and diastolic heart failure. Was discharged in stable condition, no oxygen requirements, returned in 24 hours with dyspnea, mild hypoxia on room air and increased peripheral edema. He was observed on medical floor, treated with lasix and the edema resolved over night. - Dyspnea and hypoxia: multifactorial with pneumonia, COPD, diastolic dysfunction 2 step today showed that he needed 2L at all times, prescription given and CM arranging home oxygen CT chest - no PE, did show some mucous plugging in lower lung [place], discussed with Dr. Alamo, see below - Peripheral edema, chronic diastolic HF: likely due to diastolic dysfunction, although he had no edema on d/c and he was given Lasix 20mg daily on d/c edema resolved overnight, although patient did not appreciate any increased diuresis d/c home on lasix 40mg daily and 2L daily fluid restriction no pulmonary edema noted on exam or CT chest - Aspiration pneumonia: scheduled to complete 2 more days of Augmentin reviewed CT with Dr. Alamo, he recommends swallow evaluation, patient would like to pursue outpatient gave scripts for swallow evaluation and script for video swallow and numbers to call to schedule these this week will follow up closely with Dr. Alamo and Dr. Cook - COPD exacerbation: complete Prednisone taper and continue inhaled therapies, nebulizers Total Time Spent: Greater than 30 minutes This includes examination of the patient, discharge planning, medication reconciliation, and communication with other providers. Discharge Instructions Please refer to the electronic Patient Visit Report (Discharge Instructions) for additional information. Follow-Up Swallow evaluation Dr. Jasmeet Cook Additional Copies To Jocelyne Cook M.D.; Alexander Alamo MD
[2017-02-18 13:15] VITALS: BP 136/77; PULSE 81; TEMP 36.4; O2SAT 92
[2017-03-23] MEDS ORDERED: PLMIH INH (14:40)
[2017-03-23] MEDS ORDERED: PRED10TA PO (14:40)
[2017-03-23] MEDS ORDERED: BENZ100C7 PO (14:40)
[2017-03-23] MEDS ORDERED: GFNSR600 PO (14:40)
[2017-03-23] MEDS ORDERED: LEVO1TAB35 PO (14:41)
[2017-08-10] MEDS ORDERED: HOMETAB PO (12:01)
[2017-08-10] MEDS ORDERED: GUAISYP8 PO (12:01)
[2017-08-10] MEDS ORDERED: TADA10TA PO (12:02)
[2017-08-10] MEDS ORDERED: B-CO1CAP17 PO (12:02)
[2017-08-10] MEDS ORDERED: AMLO-110 PO (12:02)
[2017-08-10] MEDS ORDERED: CHOL1000 PO (12:02)
== END 2017-02-18 14:41 | disposition home or self-care (01) ==
LOC: ENRESERVDT → ENRESERVTM → C.EDB 12:39 → C.MS4W 18:34
PROVIDERS: ADMIT Family Medicine; ATTEND Internal Medicine
DX: R09.02 Hypoxemia (principal); R60.0 Localized edema; J44.9 Chronic obstructive pulmonary disease, unspecified; J18.9 Pneumonia, unspecified organism; Z80.3 Family history of malignant neoplasm of breast; Z82.49 Family history of ischemic heart disease and other diseases of the circulatory system

== ENCOUNTER → 2017-03-05 | Outpatient (CLI) | payer BC ==
[~2017-03-05] MED LIST changes: -AMOX875T PO; +B-CO1CAP17 PO; +BENZ100C7 PO; +BENZ100C84 PO; +CHOL1000 PO; +CZR50 PO; +DORN1SOL INH; +FRS/40 PO; +GFNSR600 PO; +GUAISYP8 PO; +HOMETAB PO; +LEVO-366 PO; +LEVO1TAB35 PO; +MESA0.37 PO; +NYSS/ PO; +OXGN; +PLMIH INH; +PRED10TA PO; +TADA10TA PO
--- NOTE | 2017-03-05 11:34 | DIAGNOSTIC IMAGING REPORT ---
MODIFIED BARIUM SWALLOW CLINICAL HISTORY: Aspiration pneumonia. COMPARISON STUDY: No previous studies for comparison. Fluoroscopy time: 1.3 minutes. FINDINGS: No aspiration was identified with thin liquids, nectar thick liquids, pudding or crackers with paste. Swallowing mechanism was intact. IMPRESSION: 1. No aspiration. Intact swallowing mechanism. 2. Full recommendations by speech pathology to follow. Electronically signed by: Carl Wu M.D. 03/05/2017 11:33 AM Dictated Date/Time: 03/05/2017 11:32 AM
--- NOTE | 2017-03-06 17:36 | SWALLOWING EVALUATION ---
REFERRING SPEECH PATHOLOGIST: n/a HISTORY: This 66 year-old man was referred for a VFSS at [facility] in order to rule out aspiration after having multiple hospital admissions for hypoxia and pneumonia and now requiring O2 dependence. The patient has a PMH significant for COPD, emphysema, ADELAIDA (unable to tolerate CPAP), pneumonia, hypothyroidism, and Crohn's disease. Currently the patient's diet level is regular. PROCEDURE: The patient was seen in the Radiology Department of [facility] for the VFSS. Cursory examination of the oral cavity revealed adequate dentition. Movement of the articulators was WNL. The patient was seated on a stool and was viewed in both the Anterior-Posterior (A-P) and Lateral planes. Volitional phonation exercises completed in the A-P plane revealed bilateral vocal fold movement and vocal intensity within functional limits. In the lateral plane, the patient was given the following boluses: 1 tsp. thin liquid barium x 2, single swallow thin liquid barium self-presented from a cup, sequential swallows of thin liquid barium self-presented from a cup, 1 tsp. nectar-thick liquid barium, single swallow nectar-thick liquid barium self-presented from a cup, 1 tsp. barium pudding, and 1 club cracker with barium pudding. The patient was then repositioned into the A-P plane and given 1 tsp. barium pudding. RESULTS: Oral Stage: No labial bolus escape. Cohesive bolus formed between tongue and palate during oral bolus hold of thin liquids. Bolus preparation and transport timely and complete. No oral bolus retention after the swallow. Pharyngeal stage of the swallow initiated when the bolus head was at the posterior angle of the ramus. The oral stage of the swallow was WFL. Pharyngeal Stage: No bolus between the soft palate and pharyngeal wall. Laryngeal elevation, anterior hyoid excursion, epiglottic inversion, laryngeal vestibular closure, pharyngeal stripping wave, pharyngeal contraction were all complete. Distention and duration of PES opening was complete. No bolus retention between the tongue base and pharyngeal wall. No pharyngeal bolus retention after the swallow. There was no penetration or aspiration during this study. The pharyngeal swallow was WFL. Esophageal Stage: A pudding bolus transited the esophagus without evidence of retention. SUMMARY/RECOMMENDATIONS: This patient presents with normal oral-pharyngeal and esophageal swallow function. The following is recommended: 1. Regular diet as tolerated 2. Consideration of f/u with referring physician as needed if symptoms persist. A summary of the results and recommendations was discussed with the patient and his immediately following the study. They verbalized understanding. Thank you for referral of this patient. Please contact me at if any additional information is needed.
== END | disposition home or self-care (01) ==
LOC: C.RAD 11:05
PROVIDERS: ATTEND Internal Medicine
DX: J69.0 Pneumonitis due to inhalation of food and vomit (principal)

== ENCOUNTER 2017-03-12 11:25 | Emergency (ER) | payer BC ==
[~2017-03-12 11:25] MED LIST changes: -B-CO1CAP17 PO; -BENZ100C7 PO; -BENZ100C84 PO; -CHOL1000 PO; -CZR50 PO; -DORN1SOL INH; -FRS/40 PO; -GFNSR600 PO; -GUAISYP8 PO; -HOMETAB PO; -LEVO-366 PO; -LEVO1TAB35 PO; -MESA0.37 PO; -NYSS/ PO; -OXGN; -PLMIH INH; -PRED10TA PO; -TADA10TA PO
[2017-03-12 11:29] VITALS: TEMP 36.8; Ht 185.4 cm
[2017-03-12 11:43] VITALS: O2SAT 92
[2017-03-12] MEDS ORDERED: ALBUT/IPRATROP 3MG/0.5MG NEB 3 ML VIAL INH STA (11:49)
--- NOTE | 2017-03-12 12:09 | DIAGNOSTIC IMAGING REPORT ---
CHEST ONE VIEW PORTABLE CLINICAL HISTORY: EVALUATE RESPIRATORY DISTRESS. DYSPNEA dyspnea COMPARISON STUDY: 02/17/2017 FINDINGS: Chronic bibasilar interstitial change. Mid and upper lungs are considered clear. Slight chronic blunting left lateral costophrenic angle. IMPRESSION: Chronic change. No acute process. Electronically signed by: Gregorio Lagos M.D. 03/12/2017 12:07 PM Dictated Date/Time: 03/12/2017 12:06 PM
[2017-03-12 12:18] LABS: INR 1.1 (0.9-1.1); PARTIAL THROMBOPLASTIN RATIO 1.3; PROTHROMBIN TIME (PATIENT) 11.7 SECONDS (9.0-12.0)
[2017-03-12] MEDS ORDERED: CZR50 PO (12:22)
[2017-03-12] MEDS ORDERED: FRS/40 PO (12:22)
[2017-03-12 12:25] LABS: ALT/SGPT 28 U/L (12-78); BLOOD UREA NITROGEN 12 mg/dl (7-18); BUN/CREATININE RATIO 9.7 (10-20); CALCIUM 9.1 mg/dl (8.5-10.1); CARBON DIOXIDE 27 mmol/L (21-32); CHLORIDE 99 mmol/L (98-107); GLUCOSE 139 mg/dl (70-99); POTASSIUM 4.1 mmol/L (3.5-5.1); SODIUM 136 mmol/L (136-145)
[2017-03-12] MEDS ORDERED: SODIUM CHLORIDE 0.9% 500ML 500 ML IV STA (12:28)
[2017-03-12 12:29] LABS: ALB/GLOB RATIO 0.6 (0.9-2); ALKALINE PHOSPHATASE 66 U/L (45-117); AST/SGOT 23 U/L (15-37)
[2017-03-12 12:41] LABS: HEMATOCRIT 35.8 % (42-52); MEAN CORPUSCULAR HEMOGLOBIN 31.6 pg (25-34); MEAN CORPUSCULAR HGB CONC 33.2 g/dl (32-36); MEAN PLATELET VOLUME 10.6 fL (7.4-10.4); PLATELET COUNT 320 K/uL (130-400); RED BLOOD COUNT 3.77 M/uL (4.7-6.1); WHITE BLOOD COUNT 7.74 K/uL (4.8-10.8)
[2017-03-12 13:17] LABS: COMPLETE YES; EOSINOPHIL % 0.9 %; LYMPH ABS # 0.13 K/uL (1.2-3.4); LYMPHOCYTE % 1.7 %; META ABS # 0.07 K/uL (0-0); METAMYELOCYTE % 0.9 %; NEUTROPHILS % 92.2 %
[2017-03-12 14:28] VITALS: BP 120/55; PULSE 83; O2SAT 93
--- NOTE | 2017-03-12 15:52 | EMERGENCY ROOM VISIT NOTE ---
History Report prepared by Josefa: Orestes Donovan Under the Supervision of: Dr. Moy Talbot M.D. First contact with patient: 11:39 Chief Complaint: SHORTNESS OF BREATH Stated Complaint: SOB, DIZZY Nursing Triage Summary: Pt c/o SOB and "very light headed, can't walk 15 feet without passing out". Pt denies passing out. Wears 02 2L at all times. Symtoms x 1 week. History of Present Illness The patient is a 66 year old male who presents to the Emergency Room with complaints of worsening weakness and shortness of breath starting a week ago. He reports his discomfort as a 6/10 in severity. The patient reports that he visited the ED a month ago for an aspiration pneumonia. The patient admits he was given antibiotics and Prednisone, which he has finished. He states that a week and two days ago he visited Dr. Teague at the [facility] and they suggested he came back to the hospital. The patient states that he was discharged from the hospital two days after and was put on 2L of oxygen and 40 mg of Lasix. He reports that he was experiencing edema to his lower extremities the day after he was discharged, but he admits the Lasix has helped bring down the swelling since. The patient states that he has been experience an increased shortness of breath and weakness since his visit. He also reports that he is experiencing a productive cough, intermittent fever, rib pain, and wheezing. The patient reports that the rib pain is worsened with movement and coughing. The patient states that he uses a nebulizer and inhalers including Symbicort. He reports that the last time he had a duoneb was over a week ago. The patient denies any chills, current edema to his lower extremities, and activity outside. Source of History: patient Onset: a week ago Position: other (global) Symptom Intensity: 6/10 Timing: worsening Modifying Factors (Worsening): movement Associated Symptoms: + fevers, + cough, + chest pain, + weakness, No chills Review of Systems See HPI for pertinent positives & negatives. A total of 10 systems reviewed and were otherwise negative. 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 Family History FH: cancer FH: hypertension Social History Smoking Status: Former Smoker Alcohol Use: none Drug Use: none Marital Status: Housing Status: lives with family Occupation Status: retired Current/Historical Medications Scheduled Amlodipine (Norvasc), 5 MG PO DAILY Azathioprine (Imuran), 50 MG PO BID Budesonide/Formoterol Fumarate (Symbicort 160/4.5 Inhaler), 2 PUFF INH BID Colestipol Hcl (Colestipol Hcl), 1 GM PO BID Cyanocobalamin (Vitamin B-12), 100 MCG PO DAILY Furosemide (Lasix), 40 MG PO DAILY Ipratropium-Albuterol (Duoneb), 1 TREATMENT INH TID Levothyroxine Sodium (Synthroid), 88 MCG PO QPM Loperamide HCl (Loperamide HCl), 2 MG PO BID Losartan Potassium (Losartan Potassium), 50 MG PO DAILY Multivitamin (Multivitamin), 1 TAB PO DAILY Tiotropium [place] (Spiriva Handihaler), 1 PUFF INH QAM Zolpidem Tartrate (Ambien), 10 MG PO HS Scheduled PRN Albuterol Sulf (Proventil 0.083% 2.5MG/3ML), 2.5 MG INH Q4 PRN for Shortness of Breath Albuterol Sulfate (Proair Respiclick), 2 PUFFS INH QID PRN for SOB/Wheezing Guaifenesin-Codeine (Codeine/Guaifenesin 100-10 mg/5Ml), 5 ML PO HS PRN for Cough Allergies Coded Allergies: No Known Allergies (Unverified , 03/12/17) Physical Exam Vital Signs Date Time Temp Pulse Resp B/P (MAP) Pulse Ox O2 Delivery O2 Flow Rate FiO2 03/12/17 14:28 83 27 120/55 93 03/12/17 13:48 73 26 125/64 88 Nasal Cannula 2.0 03/12/17 13:00 87 27 117/58 95 Nasal Cannula 4.0 03/12/17 12:19 89 03/12/17 11:45 93 26 122/69 92 Nasal Cannula 4.0 03/12/17 11:43 92 Nasal Cannula 4.0 03/12/17 11:43 92 Nasal Cannula 4.0 03/12/17 11:29 99 Nasal Cannula 2.0 03/12/17 11:29 36.8 74 16 113/71 99 Nasal Cannula 2.0 Physical Exam GENERAL: Patient is in no acute distress. HEENT: No acute trauma, normocephalic atraumatic, mucous membranes moist, no nasal congestion, no scleral icterus. NECK: No stridor, no adenopathy, no meningismus, trachea is midline. LUNGS: Scattered wheezing and crackles bilaterally. Breath sounds equal. Increased respiratory rate. HEART: Without murmurs gallops or rubs, regular rate and rhythm. ABDOMEN: Soft, nontender, bowel sounds positive, no hernias, no peritonitis. EXTREMITIES: No cyanosis or edema, full range of motion of all the joints without pain or difficulty, no signs for acute trauma. NEUROLOGIC: Oriented x 3, no acute motor or sensory deficits, no focal weakness. SKIN: No rash, no jaundice, no diaphoresis. Medical Decision & Procedures ER Provider Diagnostic Interpretation: X-ray results as stated below per interpretation by me and the radiologist: CHEST ONE VIEW PORTABLE CLINICAL HISTORY: EVALUATE RESPIRATORY DISTRESS. DYSPNEA dyspnea COMPARISON STUDY: 02/17/2017 FINDINGS: Chronic bibasilar interstitial change. Mid and upper lungs are considered clear. Slight chronic blunting left lateral costophrenic angle. IMPRESSION: Chronic change. No acute process. Electronically signed by: Gregorio Lagos M.D. 03/12/2017 12:07 PM Dictated Date/Time: 03/12/2017 12:06 PM Laboratory Results 03/12/17 11:45 Red Blood Count 3.77, Mean Corpuscular Volume 95.0, Mean Corpuscular Hemoglobin 31.6, Mean Corpuscular Hemoglobin Concent 33.2, Mean Platelet Volume 10.6 03/12/17 11:45 Test 03/12/17 11:45 White Blood Count 7.74 K/uL (4.8-10.8) Red Blood Count 3.77 M/uL (4.7-6.1) Hemoglobin 11.9 g/dL (14.0-18.0) Hematocrit 35.8 % (42-52) Mean Corpuscular Volume 95.0 fL (80-100) Mean Corpuscular Hemoglobin 31.6 pg (25-34) Mean Corpuscular Hemoglobin Concent 33.2 g/dl (32-36) Platelet Count 320 K/uL (130-400) Mean Platelet Volume 10.6 fL (7.4-10.4) RDW Standard Deviation 54.8 fL (36.4-46.3) RDW Coefficient of Variation 15.9 % (11.5-14.5) Neutrophils % (Manual) 92.2 % Lymphocytes % (Manual) 1.7 % Monocytes % (Manual) 4.3 % Eosinophils % (Manual) 0.9 % Metamyelocytes % 0.9 % Neutrophils # (Manual) 7.14 K/uL (1.4-6.5) Total Absolute Neutrophils 7.14 K/uL (1.4-6.5) Lymphocytes # (Manual) 0.13 K/uL (1.2-3.4) Total Absolute Lymphocytes 0.13 K/uL (1.2-3.4) Monocytes # (Manual) 0.33 K/uL (0.11-0.59) Eosinophils # (Manual) 0.07 K/uL (0-0.5) Metamyelocytes # 0.07 K/uL (0-0) Red Blood Cell Morphology Unremarkable Prothrombin Time 11.7 SECONDS (9.0-12.0) Prothromb Time International Ratio 1.1 (0.9-1.1) Activated Partial Thromboplast Time 33.4 SECONDS (21.0-31.0) Partial Thromboplastin Ratio 1.3 Anion Gap 10.0 mmol/L (3-11) Estimated GFR () 72.6 Estimated GFR (Non- 62.6 BUN/Creatinine Ratio 9.7 (10-20) Calcium Level 9.1 mg/dl (8.5-10.1) Magnesium Level 2.0 mg/dl (1.8-2.4) Total Bilirubin 1.3 mg/dl (0.2-1) Aspartate Amino Transf (AST/SGOT) 23 U/L (15-37) Alanine Aminotransferase (ALT/SGPT) 28 U/L (12-78) Alkaline Phosphatase 66 U/L (45-117) Troponin I < 0.015 ng/ml (0-0.045) Pro-B-Type Natriuretic Peptide 71 pg/ml (0-900) Total Protein 7.2 gm/dl (6.4-8.2) Albumin 2.7 gm/dl (3.4-5.0) Globulin 4.5 gm/dl (2.5-4.0) Albumin/Globulin Ratio 0.6 (0.9-2) Laboratory results reviewed by me. Medications Administered Medications (Trade) Dose Ordered Sig/Jeffery Route Start Time Stop Time Status Last Admin Dose Admin Albuterol/ Ipratropium (Duoneb) 3 ml NOW STAT INH 03/12/17 11:49 03/12/17 11:53 DC 03/12/17 11:56 3 ML Sodium Chloride 500 ml @ 999 mls/hr Q31M STAT IV 03/12/17 12:28 03/12/17 12:58 DC 03/12/17 12:53 999 MLS/HR ECG Indication: SOB/dyspnea, weakness Rate (beats per minute): 92 Rhythm: normal sinus Findings: no acute ischemic change, no ectopy ED Course 1147: The patient was evaluated in room B03. A complete history and physical exam was performed. 1149: Duoneb 3 ml INH. 1228: Sodium Chloride 500 ml @ 999 mls/hr IV. 1345: I reevaluated the patient. He has been walking around with his 2L of oxygen and his oxygen saturation dropped to 88. Medication Reconciliation: I attest that I have personally reviewed the patient' s current medication list. Blood Pressure Screening: Patient was found to have normal blood pressure on screening and does not require follow-up. 1405: I reevaluated the patient and he is doing better. I discussed results and he wishes to go home. I then discussed discharge instructions: He verbalized understanding and agreement. The patient is ready for discharge. Medical Decision Differential diagnoses considered include: exacerbation of COPD, pneumonia, congestive heart failure, bronchitis, anemia, cardiac ischemia, myocardial infarction. There is no leukocytosis or worrisome anemia. No significant electrolyte abnormality, kidney failure or hepatitis. EKG shows a normal sinus rhythm, there is no acute ischemia. Cardiac enzyme testing times one is not consistent with acute cardiac injury. Chest x-ray shows no pneumonia, CHF or pneumothorax. On exam, the patient was not hypoxic or toxic. He was not febrile. He was able to ambulate in the ER. He did fairly well, his O2 saturation did drop to about 88% but there was no syncope or near syncope. The patient has ongoing pulmonary issues. He has an appointment with his calibration checker in a few days. I did talk to him about staying in the hospital. He does not want to stay. The patient feels comfortable with discharge home. Here, he received IV saline and a DuoNeb, he does think the DuoNeb helped quite a bit. The patient is being discharged to use DuoNeb's in place of his pro-air, he has a nebulizer at home. His other medications are to stay the same. Patient was encouraged to return here for fever, worsening dyspnea or any exertional chest pain. His shortness of breath is very likely multifactorial, the largest part of the dyspnea I think is from his COPD. Impression Primary Impression: SOB (shortness of breath) Additional Impression: COPD exacerbation Scribe Attestation The scribe's documentation has been prepared under my direction and personally reviewed by me in its entirety. I confirm that the note above accurately reflects all work, treatment, procedures, and medical decision making performed by me. Departure Information Dispostion Home / Self-Care Referrals Jocelyne Cook M.D. (PCP) Forms HOME CARE DOCUMENTATION FORM, IMPORTANT VISIT INFORMATION Patient Instructions My [facility] Additional Instructions use the duo neb every 4-6 hours while at home instead of the Proair all other meds the same see Pulmonology--call to try and see if you can have the appt sooner return for worsening breathing or worsening symptoms as we discussed Problem Qualifiers
[2017-03-23] MEDS ORDERED: BENZ100C7 PO (14:40)
[2017-03-23] MEDS ORDERED: PLMIH INH (14:40)
[2017-03-23] MEDS ORDERED: PRED10TA PO (14:40)
[2017-03-23] MEDS ORDERED: GFNSR600 PO (14:40)
[2017-03-23] MEDS ORDERED: LEVO1TAB35 PO (14:41)
[2017-08-10] MEDS ORDERED: GUAISYP8 PO (12:01)
[2017-08-10] MEDS ORDERED: HOMETAB PO (12:01)
[2017-08-10] MEDS ORDERED: TADA10TA PO (12:02)
[2017-08-10] MEDS ORDERED: B-CO1CAP17 PO (12:02)
[2017-08-10] MEDS ORDERED: CHOL1000 PO (12:02)
[2017-08-10] MEDS ORDERED: AMLO-110 PO (12:02)
== END 2017-03-12 14:29 | disposition home or self-care (01) ==
LOC: C.EDB 11:27
DX: R06.02 Shortness of breath (principal); J44.1 Chronic obstructive pulmonary disease with (acute) exacerbation; I10 Essential (primary) hypertension; R09.02 Hypoxemia; Z82.49 Family history of ischemic heart disease and other diseases of the circulatory system; Z87.891 Personal history of nicotine dependence

== ENCOUNTER 2017-03-15 16:01 | Inpatient (IN) | payer BC, OTHER ==
[~2017-03-15] VITALS: Ht 185.4 cm; Wt 92.7 kg
[~2017-03-15 16:01] MED LIST changes: +CZR50 PO; +FRS/40 PO; -FURO20TA PO; -HYDR-5688 PO; -OMEP20CA9 PO; -PRD10 PO
[2017-03-15 16:22] VITALS: BP 126/69; PULSE 94; TEMP 36.7
[2017-03-15 16:24] VITALS: O2SAT 94; Ht 185.4 cm; Wt 92.7 kg
[2017-03-15] MEDS ORDERED: ACETAMINOPHEN 325 MG TAB PO PRN (17:30)
[2017-03-15] MEDS ORDERED: ONDANSETRON INJ 2 MG/ML 2 ML VIAL IV PRN (17:30)
[2017-03-15] MEDS ORDERED: ALUMINUM/MAGNESIUM/SIMETH (MAALOX MAX) 30 ML UDC PO PRN (17:30)
[2017-03-15] MEDS ORDERED: MAGNESIUM HYDROXIDE SUSP 30 ML UDC PO PRN (17:30)
[2017-03-15] MEDS ORDERED: ALBUTEROL 0.5% NEB SOLN 2.5 MG/0.5 ML VIAL INH PRN (18:00)
[2017-03-15] MEDS ORDERED: GUAIFENESIN/CODEINE 200MG/20MG 10ML UDC PO PRN (18:15)
--- NOTE | 2017-03-15 18:33 | History and Physical ---
History & Physical Date & Time of Service: Mar 15, 2017 at 18:12 Chief Complaint: Copd, Hypoxia Primary Care Physician: Jocelyne Cook M.D. History of Present Illness Patient is a 66 year old male that was sent from Dr. Hunter's office this afternoon with worsening shortness of breath and cough. The patient has presented to [facility] with multiple episodes of COPD exacerbations over the last year, and most recently discharged on February 15 with a COPD exacerbation and then subsequently readmitted for leg swelling on February 16. The patient states that he has had worsening shortness of breath since his discharge February 15 and has now remained on 2L of oxygen at home. Today was his hospital follow up with Dr. Alamo but based on his clinical status was recommended to come to the hospital. He has a smoking history of 35 pack years and quit 15 years ago. He is on multiple inhalers and just completed a course of oral prednisone 5 days ago. He now is constantly weak and short of breath and feels like he is going to collapse when he gets up to walk. His pulse ox that he takes at home has been in the low 90s at rest and in the high 80s when he has been walking. His cough over the last month has also been productive of white sputum. He denies any fever, chills, chest pain, abdominal pain, nausea, vomiting, or diarrhea. Past Medical/Surgical History Medical Problems: (1) Bronchitis Status: Resolved (2) Emphysema, unspecified Status: Resolved (3) Hypertension Status: Chronic (4) Pneumonia Status: Resolved Family History FH: cancer FH: hypertension Social History Smoking Status: Former Smoker Drug Use: none Marital Status: Housing status: lives with family Occupational Status: retired Multi-Drug Resistant Organisms History of MDRO: No Allergies Coded Allergies: No Known Allergies (Unverified , 03/12/17) Home Medications Scheduled Amlodipine (Norvasc), 5 MG PO DAILY Azathioprine (Imuran), 50 MG PO BID Budesonide/Formoterol Fumarate (Symbicort 160/4.5 Inhaler), 2 PUFF INH BID Colestipol Hcl (Colestipol Hcl), 1 GM PO BID Cyanocobalamin (Vitamin B-12), 100 MCG PO DAILY Furosemide (Lasix), 40 MG PO DAILY Ipratropium-Albuterol (Duoneb), 1 TREATMENT INH TID Levothyroxine Sodium (Synthroid), 88 MCG PO QPM Loperamide HCl (Loperamide HCl), 2 MG PO BID Losartan Potassium (Losartan Potassium), 50 MG PO DAILY Multivitamin (Multivitamin), 1 TAB PO DAILY Tiotropium [place] (Spiriva Handihaler), 1 PUFF INH QAM Zolpidem Tartrate (Ambien), 10 MG PO HS Scheduled PRN Albuterol Sulf (Proventil 0.083% 2.5MG/3ML), 2.5 MG INH Q4 PRN for Shortness of Breath Albuterol Sulfate (Proair Respiclick), 2 PUFFS INH QID PRN for SOB/Wheezing Guaifenesin-Codeine (Codeine/Guaifenesin 100-10 mg/5Ml), 5 ML PO HS PRN for Cough Review of Systems Constitutional: + fatigue, No fever, No chills Eyes: No worsening of vision Respiratory: + cough, + sputum, + wheezing, + shortness of breath, + dyspnea on exertion, + dyspnea at rest, No hemoptysis Cardiovascular: + chest pain (with coughing), + edema Abdomen: No pain, No nausea, No vomiting Endocrine: + fatigue Integumentary: No rash Physical Exam Vital Signs Date Time Temp Pulse Resp B/P (MAP) Pulse Ox O2 Delivery O2 Flow Rate FiO2 03/15/17 16:24 94 Nasal Cannula 2.0 03/15/17 16:22 36.7 94 24 126/69 General Appearance: WD/WN, no apparent distress Head: normocephalic, atraumatic Eyes: normal inspection, sclerae normal Neck: supple, no carotid bruits Respiratory/Chest: chest non-tender, no accessory muscle use, + rhonchi Cardiovascular: regular rate, rhythm, no edema, no murmur Abdomen/GI: normal bowel sounds, non tender, soft Back: no CVA tenderness Extremities/Musculoskelatal: normal inspection, no calf tenderness, + pedal edema, + swelling Neurologic/Psych: alert, normal mood/affect, oriented x 3 Diagnostics Laboratory Results Results Past 24 Hours Test 03/15/17 18:00 Range/Units Impression Assessment and Plan Patient is a 66 year old male that presents with a 1 month history of worsening cough and shortness of breath 1) COPD Exacerbation - Chest X-Ray - Duoneb q6h - Albuterol q4h PRN - Levaquin 500mg IV Daily - Solumedrol 60mg IV q6 - Oxygen by Nasal Cannulae to keep oxygen levels > 90% - Continue Home Symbicort 2 puff inh BID - Continue Home Guaifenesin Codeine - Continue Home Spiriva 1 puff QAM 2) Crohns - Continue home Imuran 50mg PO BID - Continue home Loperamaide HCl 2mg PO BID 3) Hyperlipidemia - Continue home Colestipol 1 gm PO BID 4) Hyperthyroidism - Continue home Synthroid 88 mcg PO qPM 5) Insomnia - Continue home Zolpidem 10mg PO HS 6) Oral Thrush - Nystatin swish and swallow 7) Home Medications - Review home medications because not present at time of admission - Home medications obtained from Dr. Biswas medication list that is apparently up to date according to the patient - Currently stopped Protonix and Lasix? 7) DVT Prophylaxis - Lovenox 8) Code Status - Full Code Resident Physician Supervision Note: Pt seen / examined independently. I discussed the case with the resident and agree with the findings and plan as documented in the note. Any exceptions or clarifications are listed here: 66 y/o M w/advanced crohns, COPD sent from pulm office due to exacerbation not responding outpt modalities - low 02 sat OE AAO x 3 S1,2 R reduced air entry - no crackles - end exp wheezing Nt, ND BS+ No CCE P: Solumedrol - Duonebs/Albuterol - Levaquin Cont Imuran for Crohns as there is no clear sign of PNM Documented By: Artem Dodson Level of Care Med/Surg Advanced Directives Existing Living Will: Yes Existing Power of Vehicle Calibration Engineer: Yes Resuscitation Status FULL RESUSCITATION VTE Prophylaxis VTE Risk Assessment Done? Y/N: Yes Risk Level: Moderate Given or contraindicated: Enoxaparin (Lovenox)SQ
[2017-03-15] MEDS: METHYLPREDNISOLONE IV 60 MG in SYRINGE 0 ML IV SCH (18:53)
[2017-03-15] MEDS: ENOXAPARIN 30 MG/0.3 ML SYR SC SCH (18:54)
[2017-03-15] MEDS ORDERED: LEVOFLOXACIN / D5W 500 MG in PREMIXED IN D5W 100 ML IV SCH (19:00)
[2017-03-15 19:33] LABS: BASO % 0.4 %; BASO ABS # 0.03 K/uL (0-0.2); COMPLETE YES; EOS % 2.4 %; HEMATOCRIT 32.9 % (42-52); IG% 0.4 %; LYMPH ABS # 0.27 K/uL (1.2-3.4); MEAN CELL VOLUME 96.2 fL (80-100); MEAN CORPUSCULAR HEMOGLOBIN 31.9 pg (25-34); MEAN CORPUSCULAR HGB CONC 33.1 g/dl (32-36); MEAN PLATELET VOLUME 10.3 fL (7.4-10.4); MONO % 7.7 %; NEUT % 85.1 %; PLATELET COUNT 404 K/uL (130-400); RED BLOOD COUNT 3.42 M/uL (4.7-6.1); WHITE BLOOD COUNT 6.74 K/uL (4.8-10.8)
[2017-03-15 19:56] LABS: BUN/CREATININE RATIO 8.4 (10-20); CALCIUM 8.4 mg/dl (8.5-10.1); CREATININE 0.99 mg/dl (0.60-1.40); POTASSIUM 3.5 mmol/L (3.5-5.1)
--- NOTE | 2017-03-15 20:44 | DIAGNOSTIC IMAGING REPORT ---
CHEST 2 VIEWS ROUTINE CLINICAL HISTORY: Pneumonia. Shortness of breath. COMPARISON STUDY: Chest CT February 17, 2017 and chest radiograph March 12, 2017. FINDINGS: There is no pneumothorax or pleural effusion. Lung hyperexpansion is noted. Emphysema is present. There is no consolidation. Mild interstitial thickening is present. IMPRESSION: 1. No consolidation. 2. Subtle interstitial thickening. This is probably chronic although a mild infectious process such as bronchiolitis could have this imaging appearance. 3. Emphysema. Electronically signed by: Carl Wu M.D. 03/15/2017 8:42 PM Dictated Date/Time: 03/15/2017 8:40 PM
[2017-03-15] MEDS: LOPERAMIDE HCL 2 MG CAP PO SCH (20:51)
[2017-03-15] MEDS: AZATHIOPRINE 50 MG TAB PO SCH (20:51)
[2017-03-15] MEDS: BUDESONIDE/FORMOTEROL FUMARATE 160/4.5 60 PUFFS/INHALER INH SCH (20:51)
[2017-03-15] MEDS: NYSTATIN SUSP 500,000 U/5 ML UDC PO SCH (20:52)
[2017-03-15] MEDS ORDERED: LEVOTHYROXINE 88 MCG TAB PO SCH (21:00)
[2017-03-15] MEDS ORDERED: BUDESONIDE/FORMOTEROL FUMARATE 160/4.5 60 PUFFS/INHALER INH SCH (21:00)
[2017-03-15] MEDS: COLESTIPOL HCL 1 GM TAB PO SCH (22:06)
[2017-03-15] MEDS: ZOLPIDEM TARTRATE 10 MG TAB PO PRN (22:09)
[2017-03-15 23:43] VITALS: BP 100/55; PULSE 84; TEMP 36.9; O2SAT 92
[2017-03-16] VITALS (8 sets, daily range): BP systolic 101–128; BP diastolic 49–68; PULSE 68–93; TEMP 36.4–36.6; O2SAT 91–98
[2017-03-16] MEDS: METHYLPREDNISOLONE IV 60 MG in SYRINGE 0 ML IV SCH ×4 (00:46→22:13)
[2017-03-16] MEDS: ALBUT/IPRATROP 3MG/0.5MG NEB 3 ML VIAL INH SCH ×5 (01:00→18:55)
[2017-03-16] MEDS: LEVOTHYROXINE 88 MCG TAB PO SCH (06:07)
[2017-03-16 08:23] LABS: MEAN CORPUSCULAR HEMOGLOBIN 32.8 pg (25-34); MEAN CORPUSCULAR HGB CONC 34.1 g/dl (32-36); MEAN PLATELET VOLUME 10.4 fL (7.4-10.4); PLATELET COUNT 434 K/uL (130-400); RED BLOOD COUNT 3.54 M/uL (4.7-6.1); WHITE BLOOD COUNT 7.44 K/uL (4.8-10.8)
[2017-03-16] MEDS: COLESTIPOL HCL 1 GM TAB PO SCH ×2 (08:33→20:47)
[2017-03-16] MEDS: NYSTATIN SUSP 500,000 U/5 ML UDC PO SCH ×4 (08:33→22:07)
[2017-03-16] MEDS: LOPERAMIDE HCL 2 MG CAP PO SCH ×2 (08:33→22:09)
[2017-03-16] MEDS: AZATHIOPRINE 50 MG TAB PO SCH ×2 (08:33→22:09)
[2017-03-16] MEDS: LOSARTAN POTASSIUM 50 MG TAB PO SCH (08:33)
[2017-03-16] MEDS: BUDESONIDE/FORMOTEROL FUMARATE 160/4.5 60 PUFFS/INHALER INH SCH ×2 (08:33→22:07)
[2017-03-16 08:59] LABS: BUN/CREATININE RATIO 11.2 (10-20); POTASSIUM 3.9 mmol/L (3.5-5.1)
[2017-03-16] MEDS ORDERED: TIOTROPIUM BROMIDE 5 PUFF/90 MCG INH INH SCH (09:00)
[2017-03-16 09:02] LABS: CALCIUM 9.3 mg/dl (8.5-10.1)
[2017-03-16] MEDS ORDERED: NURSING VERBAL MED ORDER ONE (09:15)
[2017-03-16] MEDS ORDERED: GUAIFENESIN/CODEINE 100MG/10MG 5ML UDC PO ONE (09:45)
--- NOTE | 2017-03-16 10:08 | PULMONARY CONSULTATION ---
DATE OF CONSULTATION: 03/16/2017 TIME: 9:15 a.m. REPORT OF CONSULTATION: The patient was seen in room #282 bed #2. He is a 66-year-old male who was admitted yesterday with cough and shortness of breath. The patient carries a history of emphysema. In May of 2016, he was hospitalized for 7 days with a left lower lobe pneumonia. He was hospitalized this year from December 12 through December 15 with an acute influenza A in association with an exacerbation of COPD. He was then hospitalized again from February 10 until February 16 with COPD. A CAT scan of the chest at that time showed bilateral pneumonias at the lung bases. He states he really has not felt right since November. He is now short of breath with any exertion. Yesterday, he went to Dr. Alamo's office. Just walking from his car into the vestibule where such that he had to stop and sit down. He has difficulty even going up to 3 steps he has to get into his house. His breathing was much better than this 1 year ago. He has a daily cough. The cough is the most severe in the morning hours. Afternoon and evening it is definitely decreased and the amount of mucus decreases. He describes his mucous as thick and it is white to yellow in color. Yesterday, for the first time he coughed up a little streak of blood. The patient states he has to sleep in the semi-upright position because of shortness of breath. He has had some nasal congestion off and on. He does not think that he has sinus problems; however. He has not had any sinus headaches and he has not had sinus issues in the past. He does not have any heartburn. The patient has been on Imuran for Crohn disease. This medicine may suppress the immunity system some, although it is typically not a significant problem. His Crohn's has been very well controlled. He states he has had almost no diarrhea since November. This could also correlate with being on recurring episodes of steroids during that timeframe. He has had recurring treatments with antibiotics and steroids. SOCIAL HISTORY: The patient is an ex-smoker. He smoked about a pack per day for 40 years and quit roughly 15 years ago. Alcohol use is described as very occasional. 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 He has wondered if this might have contributed to his breathing issues. 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 PAST SURGICAL HISTORY: Tonsillectomy. PAST MEDICAL HISTORY: 1. Crohn disease. 2. Hypertension. 3. Hypothyroidism. 4. Diverticular disease. 5. Diastolic dysfunction. 6. Obstructive sleep apnea - intolerant of CPAP. FAMILY HISTORY: Mother age 95, had breast cancer; 2 sisters had breast cancer as well. Father with heart disease. REVIEW OF SYSTEMS: The patient feels fatigued. He feels weak. He has chronic insomnia. The remainder of the review of systems is negative except as noted above in the history of present illness. Ten systems were reviewed. PHYSICAL EXAMINATION: GENERAL: The patient is a 66-year-old male who was appearing dyspneic at rest. He was cooperative, alert and oriented. VITAL SIGNS: Temperature was 36.4. HEENT: Pupils were reactive to light. Nares were clear. Mouth exam showed dentures, but was otherwise unremarkable. The pharynx was a Mallampati grade 2. NECK: Palpation of the neck reveals no lymph nodes or masses. CHEST: Normal expansion and development. HEART: Heart rate was 96 per minute. The blood pressure was 104/63. Respiratory rate was 30 breaths per minute at the time of my exam. LUNGS: Auscultation did reveal rhonchi in both lower lung conway. No active wheezing was heard. Oxygen saturation was 95% on 2 liters. ABDOMEN: Soft. Bowel sounds were normal. There was no tenderness to palpation, masses, or organomegaly. EXTREMITIES: Showed trace edema of the lower extremities noted most at the sock line. There was no cyanosis or clubbing. He states he had worse edema a couple of weeks ago. IMAGING DATA: The patient's chest x-ray done on admission yesterday showed no active disease. Emphysema was suggested. The patient did have a swallow study on March 05 and this was normal. On February 17, he had a CT angio performed. This showed no evidence of pulmonary embolic disease. Emphysema was seen. There was infiltrates noted in both lung bases. Mucus plugging was suggested. Venous Doppler done February 17 showed no evidence of deep vein thrombosis. LABORATORY DATA: White count today is 7.44. Hemoglobin 11.6. Platelets are 434,000. Electrolytes show sodium 135, potassium 3.9, chloride 101, and bicarbonate 23. BUN was 11 with a creatinine of 1. Blood sugar this morning was 174. Calcium was 9.3. Echocardiogram was done on February 12 at the time of his prior hospital stay. The ejection fraction was normal at 65-70% with some degree of hyperdynamic systolic function. There was type 1 diastolic dysfunction. No valvular abnormalities were noted. IMPRESSION: 1. Chronic obstructive pulmonary disease with exacerbation. 2. Emphysema. 3. Recent bilateral pneumonia. 4. Obstructive sleep apnea - untreated. COMMENTS AND RECOMMENDATIONS: It is unclear why the patient has had recurring respiratory issues. His pulmonary function tests done in 2016 were only mildly abnormal, although the diffusion was significantly decreased to 45%. For the past 4 months, he keeps having recurring bouts of exacerbations and respiratory infections. He sounds as though he has some degree of secretion issues. He is on nebulizer treatments with DuoNebs every 6 hours. He is also on levothyroxine. He is on Symbicort which is his usual medicine from home. He is on methylprednisolone 60 mg IV q. 6 hours. The patient seems short of breath in spite of all of these. Pulmonary embolic disease seems much less likely in light of the recent negative CAT scan. For now, I would suggest that we try a flutter valve. We will also try the vibration vest. Following discharge, consideration could be given to treatment with Daliresp. Alternatively, treatment could be considered with azithromycin. The patient does not list any medical allergies. If he does not improve over the next few days, bronchoscopy would be considered. I spoke with the patient somewhat about his sleep apnea history. I could not find out the severity of his sleep apnea. It was done with a home test. He actually did fairly well at the time of a CPAP trial, but apparently did not get a machine at home. He seems quite resistant to CPAP therapy. Nonetheless, this may need to be considered again if his respiratory issues persist.
--- NOTE | 2017-03-16 10:41 | Hospitalist Progress Note ---
Hospitalist Progress Note Date of Service Mar 16, 2017. (Shahana Baker ., [facility]) Subjective Pt evaluation today including: conversation w/ patient, physical exam, chart review, lab review, review of studies, review of inpatient medication list Pain: None PO Intake: Tolerating PO diet Voiding: no voiding problems The patient complains of fatigue, stating that he did not sleep much last night. He complains of shortness of breath, dyspnea on exertion, productive cough and wheezing. He states that his cough is productive with white sputum, although yesterday he did have one episode of blood-streaked sputum. The patient states that he does get some chest pain when coughing, but it resolves when the coughing calms down. He has had this for the last month, and he had a cardiac work up as an outpatient that was negative. The pain was attributed to his prolonged coughing, as this cough has been going on for a month. He denies any pain right now. The patient also admits to an episode of diarrhea last night, denies melena or hematochezia. The patient denies fevers, chills, sweats , palpitations, claudication, nausea, vomiting, abdominal pain, dysuria, hematuria, urinary retention, paralysis, weakness, numbness and tingling. Additional Comments: See HPI for pertinent positives and negatives. All other systems reviewed and negative. (Shahana Baker ., [facility]) Objective Vital Signs Date Time Temp Pulse Resp B/P (MAP) Pulse Ox O2 Delivery O2 Flow Rate FiO2 03/16/17 08:00 Nasal Cannula 2.0 03/16/17 07:54 79 20 92 Nasal Cannula 2.0 03/16/17 07:33 36.4 77 18 104/63 (77) 93 Nasal Cannula 2.0 03/16/17 01:45 68 22 98 Nasal Cannula 2.0 03/16/17 00:00 92 Nasal Cannula 2.0 03/15/17 23:43 36.9 84 24 100/55 (70) 92 Nasal Cannula 2.0 03/15/17 16:24 94 Nasal Cannula 2.0 03/15/17 16:22 36.7 94 24 126/69 (Shahana Baker .[facility]) Physical Exam General Appearance: WD/WN, no apparent distress Eyes: normal inspection, PERRL, EOMI ENT: normal ENT inspection, hearing grossly normal, pharynx normal Neck: supple, no JVD, trachea midline Respiratory/Chest: no respiratory distress, + decreased breath sounds, + wheezing, + pertinent finding (sounds dyspneic even at rest and with talking) Cardiovascular: regular rate, rhythm, no gallop, no murmur Abdomen: normal bowel sounds, non tender, soft Extremities: non-tender, normal inspection, + pertinent finding (trace pitting edema) Neurologic/Psychiatric: alert, normal mood/affect, oriented x 3 Skin: normal color, warm/dry, no rash (Shahana Baker, ANJALI) Laboratory Results Last 24 Hours Test 03/15/17 19:18 03/16/17 07:52 White Blood Count 6.74 K/uL 7.44 K/uL Red Blood Count 3.42 M/uL 3.54 M/uL Hemoglobin 10.9 g/dL 11.6 g/dL Hematocrit 32.9 % 34.0 % Mean Corpuscular Volume 96.2 fL 96.0 fL Mean Corpuscular Hemoglobin 31.9 pg 32.8 pg Mean Corpuscular Hemoglobin Concent 33.1 g/dl 34.1 g/dl Platelet Count 404 K/uL 434 K/uL Mean Platelet Volume 10.3 fL 10.4 fL Neutrophils (%) (Auto) 85.1 % Lymphocytes (%) (Auto) 4.0 % Monocytes (%) (Auto) 7.7 % Eosinophils (%) (Auto) 2.4 % Basophils (%) (Auto) 0.4 % Neutrophils # (Auto) 5.73 K/uL Lymphocytes # (Auto) 0.27 K/uL Monocytes # (Auto) 0.52 K/uL Eosinophils # (Auto) 0.16 K/uL Basophils # (Auto) 0.03 K/uL RDW Standard Deviation 55.5 fL 55.3 fL RDW Coefficient of Variation 16.1 % 15.9 % Immature Granulocyte % (Auto) 0.4 % Immature Granulocyte # (Auto) 0.03 K/uL Sodium Level 139 mmol/L 135 mmol/L Potassium Level 3.5 mmol/L 3.9 mmol/L Chloride Level 103 mmol/L 101 mmol/L Carbon Dioxide Level 28 mmol/L 23 mmol/L Anion Gap 8.0 mmol/L 11.0 mmol/L Blood Urea Nitrogen 8 mg/dl 11 mg/dl Creatinine 0.99 mg/dl 1.00 mg/dl Est Creatinine Clear Calc Drug Dose 82.9 ml/min 82.1 ml/min Estimated GFR () 91.6 90.5 Estimated GFR (Non- 79.0 78.1 BUN/Creatinine Ratio 8.4 11.2 Random Glucose 134 mg/dl 174 mg/dl Calcium Level 8.4 mg/dl 9.3 mg/dl (Shahana Baker, ANJALI) Diagnostic Results Reviewed the following studies and agree with interpretation as follows: Patient Name: CHARLES TORRES Unit Number: [id number] Dictated: 03/15/172039 Transcribed: 03/15/172039 JA Printed Date/Time: [~ rep prt dt]/[~ rep prt tm] [~ rep ct labl] - [~ rep ct ivnm] [facility] [place] [address] Dictated: 03/15/172039 Transcribed: 03/15/172039 JA Printed Date/Time: [~ rep prt dt]/[~ rep prt tm] [~ rep ct labl] - [~ rep ct ivnm] Patient: CHARLES TORRES Address1: [address] [place] [address] Rec: [id number] [facility] [id number] [facility] Zip: [place] [address] Date: 1950 Sex: M Room/Bed: [facility] Ref Phy: Jocelyne Cook M.D. SC: [facility] Att Phy: Artem Dodson M.D. Report #: [id number] Silvana Phy: Jocelyne Cook M.D. Test: CXR Admit Phy: Artem Dodson M.D. Product Design Engineer: ISAÍAS Interpreting Phy: Carl Wu MD Diagnosis: COPD, HYPOXIA Ordering Phy: Donovan Russo MD Service Date: 03/15/17 Admit Date: 03/15/17 MNE: [id number] CONF: DICTATED BY: Carl Wu MD]] CC: Donovan Russo MD Jiang, Dongsheng, M.D. Kedem, Artem ., M.D. Endcc: [~ rep ct add3]] CHEST 2 VIEWS ROUTINE CLINICAL HISTORY: Pneumonia. Shortness of breath. COMPARISON STUDY: Chest CT February 17, 2017 and chest radiograph March 12, 2017. FINDINGS: There is no pneumothorax or pleural effusion. Lung hyperexpansion is noted. Emphysema is present. There is no consolidation. Mild interstitial thickening is present. IMPRESSION: 1. No consolidation. 2. Subtle interstitial thickening. This is probably chronic although a mild infectious process such as bronchiolitis could have this imaging appearance. 3. Emphysema. Electronically signed by: Carl Wu M.D. 03/15/2017 8:42 PM Dictated Date/Time: 03/15/2017 8:40 PM The status of this report is Signed. Draft = Not yet reviewed or approved by Radiologist. Signed = Reviewed and approved by Radiologist. <AttendingPhy>Artem Dodson M.D.</AttendingPhy> <FamilyPhy>Jocelyne Cook M.D. </FamilyPhy> <PrimaryPhy>Jocelyne Cook M.D.</PrimaryPhy> <UnitNumber> [id number]</UnitNumber> <VisitNumber>[id number]</VisitNumber> <PatientName> CHARLES TORRES</PatientName> <DateOfBirth>1950</DateOfBirth> <Location>[facility] </Location> <ServiceDate></ServiceDate> <MNE>ESINDI</MNE> <OrderingPhy>Donovan Russo MD</OrderingPhy> <OrderingPhyMNE>f rep ord dr norman</OrderingPhyMNE> < DictatingPhyMNE>f rep dict dr norman</DictatingPhyMNE> <CCListMNE>f rep ct omare</ CCListMNE> <AdmittingPhyMNE>f pt admit dr norman</AdmittingPhyMNE> <AttendingPhyMNE >f pt attend dr norman</AttendingPhyMNE> <ConsultingPhyMNE>f pt consult dr norman</ConsultingPhyMNE> <FamilyPhyMNE>f pt fam dr norman</FamilyPhyMNE> <OtherPhyMNE>f pt other dr norman</OtherPhyMNE> < PrimaryPhyMNE>f pt prim care dr norman</PrimaryPhyMNE> <ReferringPhyMNE>f pt referring dr norman</ReferringPhyMNE> (Shahana Baker ., ANJALI) Assessment and Plan 66 y/o male with a history of COPD, chronic diastolic CHF, Crohn's disease, HLD , HTN, hypothyroidism and insomnia who presents for a direct admission from Dr. Alamo's office with persistent productive cough and worsening shortenss of breath. The patient has had several exacerbations of his COPD in the last few months, and during his most recent hospitalization one month ago was started on continuous supplemental oxygen at home (2L). The patient states he has had a productive cough since last month. COPD Exacerbation--stable - Admitted to medical floor - CXR shows emphysema and a possible mild infectious process, possibly bronchiolitis - Pulmonology consulted for recurrent COPD exacerbations, appreciate recs: Try flutter valve and vibration vest as pt may have problem with secretions. If pt is not improving over next few days, consider bronchoscopy. After discharge, consider treating with Daliresp or azithromycin. - Duoneb q6h - Albuterol q4h PRN - Convert Levaquin to Levaquin 500 mg PO qd. Day #2 - Decrease steroids to Solu-Medrol 60mg IV q8 - Oxygen by Nasal Cannulae to keep oxygen levels > 90%, currently on baseline 2 L - Continue Symbicort 2 puff inh BID - Continue Guaifenesin Codeine - Continue Spiriva 1 puff QAM Chronic diastolic CHF--stable -Continue Lasix 40 mg PO qd Crohn's--stable - Continue Imuran 50 mg PO BID - Continue Loperamide HCl 2 mg PO BID Hyperlipidemia - Continue Colestipol 1 gm PO BID HTN--stable, BP has been hypotensive/low normal -Hold amlodipine for now until BP more stable Hypothyroidism - Continue Synthroid 88 mcg PO qPM Insomnia - Continue Zolpidem 10mg PO HS Oral Thrush - Nystatin swish and swallow. Day #2 of . DVT Prophylaxis - Lovenox Code Status -Level I, FULL RESUSCITATION STATUS (Shahana Baker ., [facility]) I agree with PA assessment and plan and have seen and examined pt myself Labs and vitals reviewed CXR reviewed Appreciate pulm recs COnt antibx, steroids for COPD exab May need bronch if worsening sob Added mucinex as well (Osmin Del Real D.O.)
[2017-03-16] MEDS ORDERED: METHYLPREDNISOLONE IV 60 MG in SYRINGE 0 ML IV SCH (15:00)
[2017-03-16] MEDS: LEVOFLOXACIN 500 MG TAB PO SCH (17:47)
[2017-03-16] MEDS: ENOXAPARIN 30 MG/0.3 ML SYR SC SCH (17:47)
[2017-03-16] MEDS: GUAIFENESIN 600 MG TABCR PO SCH (22:08)
[2017-03-16] MEDS: ZOLPIDEM TARTRATE 10 MG TAB PO PRN (22:13)
[2017-03-17] VITALS (9 sets, daily range): BP systolic 103–120; BP diastolic 50–65; PULSE 88–100; TEMP 36.3–36.8; O2SAT 90–96
[2017-03-17] MEDS: ALBUT/IPRATROP 3MG/0.5MG NEB 3 ML VIAL INH SCH ×4 (03:15→18:25)
[2017-03-17] MEDS: LEVOTHYROXINE 88 MCG TAB PO SCH (05:25)
[2017-03-17] MEDS: METHYLPREDNISOLONE IV 60 MG in SYRINGE 0 ML IV SCH ×3 (05:25→22:05)
[2017-03-17 06:53] LABS: HEMATOCRIT 33.6 % (42-52); MEAN CELL VOLUME 96.3 fL (80-100); MEAN CORPUSCULAR HEMOGLOBIN 31.8 pg (25-34); MEAN PLATELET VOLUME 10.3 fL (7.4-10.4); PLATELET COUNT 517 K/uL (130-400); RED BLOOD COUNT 3.49 M/uL (4.7-6.1); WHITE BLOOD COUNT 17.49 K/uL (4.8-10.8)
[2017-03-17 07:11] LABS: BUN/CREATININE RATIO 15.8 (10-20); CALCIUM 8.9 mg/dl (8.5-10.1); CREATININE 1.1 mg/dl (0.60-1.40); POTASSIUM 3.8 mmol/L (3.5-5.1)
[2017-03-17] MEDS: COLESTIPOL HCL 1 GM TAB PO SCH ×2 (07:51→20:43)
[2017-03-17] MEDS: GUAIFENESIN 600 MG TABCR PO SCH ×2 (07:51→22:06)
[2017-03-17] MEDS: FUROSEMIDE 40 MG TAB PO SCH (07:51)
[2017-03-17] MEDS: BUDESONIDE/FORMOTEROL FUMARATE 160/4.5 60 PUFFS/INHALER INH SCH ×2 (07:51→22:05)
[2017-03-17] MEDS: LOSARTAN POTASSIUM 50 MG TAB PO SCH (07:51)
[2017-03-17] MEDS: NYSTATIN SUSP 500,000 U/5 ML UDC PO SCH ×4 (07:52→22:06)
[2017-03-17] MEDS: AZATHIOPRINE 50 MG TAB PO SCH ×2 (07:52→22:05)
[2017-03-17] MEDS: LOPERAMIDE HCL 2 MG CAP PO SCH ×2 (07:52→22:07)
--- NOTE | 2017-03-17 10:56 | PULMONARY PROGRESS NOTE ---
DATE: 03/17/2017 TIME: 10:25 a.m. SUBJECTIVE: The patient is still having severe coughing episodes. He relates that last evening he had 2 episodes of apparent tussive syncope. All times, he was sitting on his bed and had a short episode of passing out. He still feels congested. He thinks the vest and the flutter valve may have helped some, but he has not expectorated any significant sputum. The patient's was present during this evaluation. OBJECTIVE: GENERAL: The patient appears comfortable. He did not cough during this exam. VITAL SIGNS: Temperature is 36.3. ENT: Exam is unchanged from yesterday and is unremarkable. HEART: Heart rate was 89 per minute. The rhythm was regular. Blood pressure 105/63. LUNGS: Lung conway revealed persistent coarse rhonchi especially in the lower lung conway, greater on the right than the left. Respiratory rate was 20. Saturation was 92% on 2 liters. EXTREMITIES: Showed no cyanosis, clubbing or edema. LABORATORY DATA: White count today is 17.49. I suspect this is elevated in part related to his steroids. Hemoglobin is 11.1. Platelets were 517,000. The platelet count has increased as one might see with an infection. Electrolytes today show sodium 136, potassium 3.8, chloride 99, and bicarb 25. The BUN was 17 with a creatinine of 1.1. Blood sugar was 173. Sputum gram stain reports moderate gram positive cocci, few gram positive bacilli, few gram negative diplococci. Moderate normal jennifer was reported. IMPRESSIONS: 1. Chronic obstructive pulmonary disease with exacerbation. 2. Tussive syncope. 3. Emphysema. 4. Recent bilateral pneumonia. 5. Obstructive sleep apnea-untreated. The patient will need some cough suppression. We obviously do not want to stop him from coughing at all, but we need to decrease the cough such that he does not have the tussive syncope. He states Dr. Sewell was in today and was going to order something for him. He does have Robitussin AC ordered, but for at bedtime only. Perhaps that could be given throughout the day as need be. The patient remains on levofloxacin and methylprednisolone. He is on the DuoNeb treatments. If the patient does not improve, consideration is given to having bronchoscopy early in the week. I am going to repeat an x-ray for tomorrow.
[2017-03-17] MEDS ORDERED: NURSING DECISION MEDICATION ORDER SCH (11:30)
[2017-03-17] MEDS ORDERED: COUGH DROP (SUGAR FREE) LOZ 24 LOZ/1 BOX ONE (11:33)
[2017-03-17] MEDS ORDERED: COUGH DROP (SUGAR FREE) LOZ 24 LOZ/1 BOX PO PRN (11:45)
[2017-03-17] MEDS: BENZONATATE 100MG CAP PO SCH ×2 (13:16→21:00)
--- NOTE | 2017-03-17 14:42 | Progress Note ---
Subjective Date of Service: Mar 17, 2017. Subjective Pt evaluation today including: conversation w/ patient, physical exam, chart review, lab review, review of studies Pt seen and examined States feeling about the same Still short of breath at rest Cough noted, states passed out from coughing yesterday No fevers noted Problem List Medical Problems: (1) Acute bronchitis Status: Acute (2) COPD exacerbation Status: Acute (3) COPD exacerbation Status: Acute (4) Failure of outpatient treatment Status: Acute (5) Lactic acidosis Status: Acute (6) Lower extremity edema Status: Acute (7) Mucus plugging of bronchi Status: Acute (8) Sepsis Status: Acute (9) SOB (shortness of breath) Status: Acute (10) SOB (shortness of breath) Status: Acute Review of Systems Constitutional: No fever, No chills, No sweats, No weight loss Eyes: No worsening of vision, No eye pain, No redness, No discharge Respiratory: + cough, + sputum, + wheezing, + shortness of breath, + dyspnea on exertion Cardiac: No chest pain, No orthopnea, No PND, No edema Abdomen: No pain, No nausea, No vomiting, No diarrhea, No constipation Musculoskeletal: No joint pain, No muscle pain, No swelling, No calf pain Male : No dysuria, No urinary frequency, No incontinence, No hematuria Neurologic: No memory loss, No paralysis, No weakness, No numbness/tingling Psychiatric: No depression symptoms, No anhedonism, No anxiety, No insomnia Objective Vital Signs Date Time Temp Pulse Resp B/P (MAP) Pulse Ox O2 Delivery O2 Flow Rate FiO2 03/17/17 14:22 95 16 95 Nasal Cannula 2.0 03/17/17 14:21 95 18 96 Nasal Cannula 2.0 03/17/17 08:30 Nasal Cannula 2.0 03/17/17 07:33 36.3 89 20 105/63 (77) 92 Nasal Cannula 2.0 03/17/17 07:19 88 18 96 Nasal Cannula 2.0 03/17/17 03:15 88 18 94 Nasal Cannula 2.0 03/17/17 00:03 Nasal Cannula 2.0 03/16/17 23:30 36.5 91 18 101/49 (66) 93 Nasal Cannula 2.0 03/16/17 19:42 Nasal Cannula 2.0 03/16/17 18:55 90 18 91 Nasal Cannula 2.0 03/16/17 16:00 Nasal Cannula 2.0 03/16/17 15:27 36.6 93 20 128/68 (88) 93 Nasal Cannula 3.0 Physical Exam General Appearance: WD/WN, + mild distress Eyes: PERRL, EOMI Neck: supple, no adenopathy, thyroid normal, no JVD Respiratory/Chest: chest non-tender, + decreased breath sounds, + rhonchi, + wheezing Cardiovascular: regular rate, rhythm, no edema, no gallop, no JVD Abdomen: normal bowel sounds, non tender, soft, no organomegaly Extremities: normal range of motion, non-tender, normal inspection, no pedal edema Neurologic/Psychiatric: no motor/sensory deficits, alert, normal mood/affect, oriented x 3 Laboratory Results Last 24 Hours Test 03/17/17 06:13 White Blood Count 17.49 K/uL Red Blood Count 3.49 M/uL Hemoglobin 11.1 g/dL Hematocrit 33.6 % Mean Corpuscular Volume 96.3 fL Mean Corpuscular Hemoglobin 31.8 pg Mean Corpuscular Hemoglobin Concent 33.0 g/dl RDW Standard Deviation 56.7 fL RDW Coefficient of Variation 16.5 % Platelet Count 517 K/uL Mean Platelet Volume 10.3 fL Sodium Level 136 mmol/L Potassium Level 3.8 mmol/L Chloride Level 99 mmol/L Carbon Dioxide Level 25 mmol/L Anion Gap 12.0 mmol/L Blood Urea Nitrogen 17 mg/dl Creatinine 1.10 mg/dl Est Creatinine Clear Calc Drug Dose 74.6 ml/min Estimated GFR () 80.6 Estimated GFR (Non- 69.6 BUN/Creatinine Ratio 15.8 Random Glucose 173 mg/dl Calcium Level 8.9 mg/dl Assessment and Plan 66 y/o male with a history of COPD, chronic diastolic CHF, Crohn's disease, HLD , HTN, hypothyroidism and insomnia who presents for a direct admission from Dr. Alamo's office with persistent productive cough and worsening shortenss of breath. The patient has had several exacerbations of his COPD in the last few months, and during his most recent hospitalization one month ago was started on continuous supplemental oxygen at home (2L). The patient states he has had a productive cough since last month. COPD Exacerbation--slightly worsening - Admitted to medical floor - CXR shows emphysema and a possible mild infectious process, possibly bronchiolitis - Pulmonology consulted for recurrent COPD exacerbations, appreciate recs: Started on flutter valve and vibration vest - Worsening cough, added tessalon perles 100 mg PO TID, may need bronchoscopy if worsening. - Cont Duoneb q6h - Cont Albuterol q4h PRN - Convert Levaquin to Levaquin 500 mg PO qd. Day #3 - Decrease steroids to Solu-Medrol 60mg IV q8 - Oxygen by Nasal Cannulae to keep oxygen levels > 90%, currently on baseline 2 L - Continue Symbicort 2 puff inh BID - Continue Guaifenesin Codeine - Continue Spiriva 1 puff QAM Chronic diastolic CHF--stable -Continue Lasix 40 mg PO qd Crohn's--stable - Continue Imuran 50 mg PO BID - Continue Loperamide HCl 2 mg PO BID Hyperlipidemia - Continue Colestipol 1 gm PO BID HTN--stable, BP has been hypotensive/low normal -Hold amlodipine for now until BP more stable Hypothyroidism - Continue Synthroid 88 mcg PO qPM Insomnia - Continue Zolpidem 10mg PO HS Oral Thrush - Nystatin swish and swallow. Day #3 of 10. DVT Prophylaxis - Lovenox Code Status -Level I, FULL RESUSCITATION STATUS
[2017-03-17] MEDS: LEVOFLOXACIN 500 MG TAB PO SCH (17:55)
[2017-03-17] MEDS: ENOXAPARIN 30 MG/0.3 ML SYR SC SCH (17:56)
[2017-03-17] MEDS ORDERED: GUAIFENESIN/CODEINE 100MG/10MG 5ML UDC PO PRN (18:00)
[2017-03-17] MEDS: ZOLPIDEM TARTRATE 10 MG TAB PO PRN (22:04)
[2017-03-18] VITALS (8 sets, daily range): BP systolic 119–126; BP diastolic 58–72; PULSE 76–96; TEMP 36.3–36.7; O2SAT 91–95
[2017-03-18] MEDS: LEVOTHYROXINE 88 MCG TAB PO SCH (05:52)
[2017-03-18] MEDS: METHYLPREDNISOLONE IV 60 MG in SYRINGE 0 ML IV SCH (05:52)
[2017-03-18 06:54] LABS: HEMATOCRIT 34.4 % (42-52); MEAN CELL VOLUME 97.2 fL (80-100); MEAN CORPUSCULAR HEMOGLOBIN 30.8 pg (25-34); MEAN CORPUSCULAR HGB CONC 31.7 g/dl (32-36); MEAN PLATELET VOLUME 10.1 fL (7.4-10.4); PLATELET COUNT 525 K/uL (130-400); RED BLOOD COUNT 3.54 M/uL (4.7-6.1)
[2017-03-18 07:31] LABS: BUN/CREATININE RATIO 19.8 (10-20); CALCIUM 8.6 mg/dl (8.5-10.1); CREATININE 0.98 mg/dl (0.60-1.40); POTASSIUM 4.5 mmol/L (3.5-5.1)
[2017-03-18] MEDS: ALBUT/IPRATROP 3MG/0.5MG NEB 3 ML VIAL INH SCH ×3 (07:35→19:42)
[2017-03-18] MEDS: BENZONATATE 100MG CAP PO SCH ×3 (08:00→20:54)
[2017-03-18] MEDS: AZATHIOPRINE 50 MG TAB PO SCH ×2 (08:01→20:53)
[2017-03-18] MEDS: BUDESONIDE/FORMOTEROL FUMARATE 160/4.5 60 PUFFS/INHALER INH SCH ×2 (08:01→20:51)
[2017-03-18] MEDS: GUAIFENESIN 600 MG TABCR PO SCH ×2 (08:01→20:53)
[2017-03-18] MEDS: NYSTATIN SUSP 500,000 U/5 ML UDC PO SCH ×4 (08:01→20:53)
[2017-03-18] MEDS: LOSARTAN POTASSIUM 50 MG TAB PO SCH (08:01)
[2017-03-18] MEDS: COLESTIPOL HCL 1 GM TAB PO SCH ×2 (08:01→19:43)
[2017-03-18] MEDS: FUROSEMIDE 40 MG TAB PO SCH (08:01)
[2017-03-18] MEDS: LOPERAMIDE HCL 2 MG CAP PO SCH ×2 (08:02→20:52)
--- NOTE | 2017-03-18 09:21 | DIAGNOSTIC IMAGING REPORT ---
CHEST 2 VIEWS ROUTINE HISTORY: severe cough COMPARISON: Chest 03/15/2017. FINDINGS: Mild diffuse interstitial thickening which is likely chronic. No new focal lung consolidations to suggest pneumonia. No evidence for pulmonary edema. No pleural effusions. No pneumothorax. The heart is normal in size. IMPRESSION: No change in the mild diffuse interstitial thickening which is likely chronic. No new focal lung consolidations to suggest pneumonia. Electronically signed by: Anthony Armenta M.D. 03/18/2017 9:19 AM Dictated Date/Time: 03/18/2017 9:18 AM
--- NOTE | 2017-03-18 12:37 | Progress Note ---
Subjective Date of Service: Mar 18, 2017. Subjective Pt evaluation today including: conversation w/ patient, physical exam, chart review, lab review, review of studies, review of inpatient medication list Pt states improvement in shortness of breath No fevers or chills Resting comfortably in bed Cough mild and controlled with meds Problem List Medical Problems: (1) Acute bronchitis Status: Acute (2) COPD exacerbation Status: Acute (3) COPD exacerbation Status: Acute (4) Failure of outpatient treatment Status: Acute (5) Lactic acidosis Status: Acute (6) Lower extremity edema Status: Acute (7) Mucus plugging of bronchi Status: Acute (8) Sepsis Status: Acute (9) SOB (shortness of breath) Status: Acute (10) SOB (shortness of breath) Status: Acute Review of Systems Constitutional: No fever, No chills, No weight loss, No weakness Eyes: No worsening of vision, No eye pain Respiratory: + cough, + sputum, + shortness of breath, No wheezing, No dyspnea on exertion Cardiac: No chest pain, No orthopnea, No PND, No edema Abdomen: No pain, No nausea, No vomiting, No diarrhea, No constipation Musculoskeletal: No joint pain, No muscle pain Male : No dysuria, No urinary frequency, No incontinence, No slowing stream Neurologic: No memory loss, No paralysis, No weakness, No numbness/tingling Psychiatric: No depression symptoms, No anhedonism, No anxiety, No insomnia Endo: No fatigue Skin: No rash, No itch Objective Vital Signs Date Time Temp Pulse Resp B/P (MAP) Pulse Ox O2 Delivery O2 Flow Rate FiO2 03/18/17 08:30 Nasal Cannula 2.0 03/18/17 07:35 90 18 95 Nasal Cannula 2.0 03/18/17 06:47 36.3 76 18 119/72 (88) 91 Nasal Cannula 2.0 03/18/17 00:47 Nasal Cannula 2.0 03/17/17 23:06 36.7 100 20 103/50 (67) 95 Nasal Cannula 2.0 03/17/17 19:45 Nasal Cannula 2.0 03/17/17 18:25 95 18 90 Nasal Cannula 2.0 03/17/17 16:00 Nasal Cannula 2.0 03/17/17 15:47 36.8 90 18 120/62 (81) 92 116/65 (82) 105/56 (72) 6/17/17 14:56 36.4 89 20 108/54 (72) 91 Nasal Cannula 2.0 03/17/17 14:22 95 16 95 Nasal Cannula 2.0 03/17/17 14:21 95 18 96 Nasal Cannula 2.0 Physical Exam General Appearance: WD/WN, no apparent distress Eyes: normal inspection, PERRL, EOMI, sclerae normal Neck: supple, no adenopathy, thyroid normal, no JVD Respiratory/Chest: chest non-tender, + decreased breath sounds, + rhonchi, + wheezing Cardiovascular: no edema, no gallop, no JVD, no murmur Abdomen: normal bowel sounds, non tender, soft, no organomegaly Extremities: normal range of motion, non-tender, normal inspection, no pedal edema Neurologic/Psychiatric: no motor/sensory deficits, alert, normal mood/affect, oriented x 3 Lymphatic: no adenopathy Laboratory Results Last 24 Hours Test 03/18/17 06:15 White Blood Count 17.60 K/uL Red Blood Count 3.54 M/uL Hemoglobin 10.9 g/dL Hematocrit 34.4 % Mean Corpuscular Volume 97.2 fL Mean Corpuscular Hemoglobin 30.8 pg Mean Corpuscular Hemoglobin Concent 31.7 g/dl RDW Standard Deviation 57.5 fL RDW Coefficient of Variation 16.4 % Platelet Count 525 K/uL Mean Platelet Volume 10.1 fL Sodium Level 139 mmol/L Potassium Level 4.5 mmol/L Chloride Level 104 mmol/L Carbon Dioxide Level 25 mmol/L Anion Gap 10.0 mmol/L Blood Urea Nitrogen 19 mg/dl Creatinine 0.98 mg/dl Est Creatinine Clear Calc Drug Dose 83.8 ml/min Estimated GFR () 92.7 Estimated GFR (Non- 80.0 BUN/Creatinine Ratio 19.8 Random Glucose 131 mg/dl Calcium Level 8.6 mg/dl Assessment and Plan 66 y/o male with a history of COPD, chronic diastolic CHF, Crohn's disease, HLD , HTN, hypothyroidism and insomnia who presents for a direct admission from Dr. Alamo's office with persistent productive cough and worsening shortenss of breath. The patient has had several exacerbations of his COPD in the last few months, and during his most recent hospitalization one month ago was started on continuous supplemental oxygen at home (2L). The patient states he has had a productive cough since last month. COPD Exacerbation--slightly improving - Admitted to medical floor - CXR shows emphysema and a possible mild infectious process, possibly bronchiolitis - Pulmonology consulted for recurrent COPD exacerbations, appreciate recs: Started on flutter valve and vibration vest - Worsening cough, cont tessalon perles 100 mg PO TID, may need bronchoscopy if worsening. - Cont Duoneb q6h - Cont Albuterol q4h PRN - Convert Levaquin to Levaquin 500 mg PO qd. Day # 4 - Decrease steroids to Solu-Medrol 60mg IV q8 - Oxygen by Nasal Cannulae to keep oxygen levels > 90%, currently on baseline 2 L - Continue Symbicort 2 puff inh BID - Continue Guaifenesin Codeine - Continue Spiriva 1 puff QAM Chronic diastolic CHF--stable -Continue Lasix 40 mg PO qd Crohn's--stable - Continue Imuran 50 mg PO BID - Continue Loperamide HCl 2 mg PO BID Hyperlipidemia - Continue Colestipol 1 gm PO BID HTN--stable, BP has been hypotensive/low normal -Hold amlodipine for now until BP more stable Hypothyroidism - Continue Synthroid 88 mcg PO qPM Insomnia - Continue Zolpidem 10mg PO HS Oral Thrush - Nystatin swish and swallow. Day # 4 of 10. DVT Prophylaxis - Lovenox Code Status -Level I, FULL RESUSCITATION STATUS
--- NOTE | 2017-03-18 13:17 | PULMONARY PROGRESS NOTE ---
DATE: 03/18/2017 TIME: 12:50 p.m. SUBJECTIVE: The patient feels a little better. He did have an increased amount of sputum. He did not exactly look at the color. It was coming up a little easier. He still feels modestly short of breath, however. OBJECTIVE: VITAL SIGNS: The patient is afebrile with a temperature of 36.3. ENT: Exam is unchanged. HEART: Heart rate is 90 beats per minute. The rhythm is regular. Blood pressure 119/72. CHEST: Respiratory rate 18 breaths per minute. Lung conway to auscultation continued to reveal coarse rhonchi bilaterally in mainly the lower lung conway. Saturation was 95% on 2 liters. EXTREMITIES: Showed no cyanosis, clubbing or edema. LABORATORY DATA: White count today is 17.60. Hemoglobin 10.9. Platelets 525,000. Electrolytes show sodium 139, potassium 4.5, chloride 104, bicarb 25. The BUN is 19 with a creatinine of 0.98. Blood sugar was 131. Sputum reported normal jennifer. IMPRESSIONS: 1. Chronic obstructive pulmonary disease with exacerbation. 2. Tussive syncope. 3. Emphysema. 4. Obstructive sleep apnea-untreated. 5. Recent bilateral pneumonia. COMMENTS: The patient is somewhat improved. He remains with a lot of rhonchi on exam. It would seem like he may benefit from bronchoscopy. Dr. Alamo is on tomorrow. I will make the patient n.p.o. overnight tonight in the event that he is able to do a scope tomorrow. The patient understands this. I did explain the procedure to him including the risks and benefits. His was present during this evaluation. He denies being on any blood thinners, but he would be receiving some Lovenox this evening. That should be acceptable, even if he would do a scope tomorrow.
[2017-03-18] MEDS: LEVOFLOXACIN 500 MG TAB PO SCH (17:26)
[2017-03-18] MEDS: ENOXAPARIN 30 MG/0.3 ML SYR SC SCH (17:26)
[2017-03-18] MEDS: METHYLPREDNISOLONE IV 40 MG in SYRINGE 0 ML IV SCH (20:52)
[2017-03-18] MEDS: ZOLPIDEM TARTRATE 10 MG TAB PO PRN (20:58)
[2017-03-19] MEDS: ALBUT/IPRATROP 3MG/0.5MG NEB 3 ML VIAL INH SCH ×4 (01:52→19:43)
[2017-03-19] MEDS: LEVOTHYROXINE 88 MCG TAB PO SCH (04:34)
[2017-03-19 07:24] VITALS: BP 139/77; PULSE 73; TEMP 36.5; O2SAT 94
[2017-03-19 07:42] LABS: BUN/CREATININE RATIO 20.5 (10-20); CALCIUM 8.4 mg/dl (8.5-10.1); CREATININE 0.96 mg/dl (0.60-1.40); POTASSIUM 4.6 mmol/L (3.5-5.1)
[2017-03-19 07:45] VITALS: PULSE 96; O2SAT 96
[2017-03-19 09:14] LABS: HEMATOCRIT 34.7 % (42-52); MEAN CELL VOLUME 98.3 fL (80-100); MEAN CORPUSCULAR HEMOGLOBIN 32.3 pg (25-34); MEAN CORPUSCULAR HGB CONC 32.9 g/dl (32-36); MEAN PLATELET VOLUME 10.4 fL (7.4-10.4); PLATELET COUNT 520 K/uL (130-400); RED BLOOD COUNT 3.53 M/uL (4.7-6.1); WHITE BLOOD COUNT 12.86 K/uL (4.8-10.8)
[2017-03-19] MEDS: COLESTIPOL HCL 1 GM TAB PO SCH ×2 (09:59→21:00)
[2017-03-19] MEDS: GUAIFENESIN 600 MG TABCR PO SCH ×3 (10:00→21:01)
[2017-03-19] MEDS: NYSTATIN SUSP 500,000 U/5 ML UDC PO SCH ×4 (10:00→21:01)
[2017-03-19] MEDS: LOSARTAN POTASSIUM 50 MG TAB PO SCH ×2 (10:00→13:08)
[2017-03-19] MEDS: AZATHIOPRINE 50 MG TAB PO SCH ×3 (10:00→21:00)
[2017-03-19] MEDS: LOPERAMIDE HCL 2 MG CAP PO SCH ×3 (10:00→21:00)
[2017-03-19] MEDS: FUROSEMIDE 40 MG TAB PO SCH ×2 (10:00→13:08)
[2017-03-19] MEDS: BENZONATATE 100MG CAP PO SCH ×3 (10:01→21:01)
[2017-03-19] MEDS: BUDESONIDE/FORMOTEROL FUMARATE 160/4.5 60 PUFFS/INHALER INH SCH ×2 (10:05→20:58)
[2017-03-19] MEDS: METHYLPREDNISOLONE IV 40 MG in SYRINGE 0 ML IV SCH (10:05)
--- NOTE | 2017-03-19 12:12 | Pulmonology Progress Note ---
Pulmonary Progress Note Date of Service Mar 19, 2017. Attending Dr. Alamo Subjective Patient notes dyspnea at rest with continued intermittently productive sputum but denies: Fever, chills, pleurisy, palpitations or syncopal episodes at this time. The patient did have a paradoxical coughing syncopal episode noted prior to admission Objective Patient able to sit up in bed but notably using accessory muscles of breathing and tachypnea breathing in the mid 20s. I/Os: +255 Respiratory: 18 Pulse ox: 94-96% Oxygen support: 2 L Respiratory: Bilateral crackles globally/thoracic ultrasound shows B-lines even at the apices bilaterally butpleural effusions Card: S1-S2 regular rate but unable to auscultate for murmurs rubs or gallops his heart Infections: No edema noted Labs WBC count: 13,000 Platelet count: 520,000 The urine/creatinine: 20/0.96 Current lab workup Expectorated sputum 03/15/2017: Normal jennifer AFB Sputum (no growth to date) (02/12/17) AFB not seen (02/14/17) AFB not seen (02/16/[address] Thorax (02/12/17) compared to 01/29/17) No evidence of proximal PE Patchy airspace consolidations seen at the basis bilaterally Fluid/secretions noted in the bilateral lower airways Possible mucous plug in the subsegments of the right lower lobe WBC: 8K QFT: Indeterminate TB test: 0.02 (looks for false positives) TB Mitogen: <0.00 (assure proper immune response) TB Antigen: <0.00 (TB specific antigen) PFT (07/21/16) Pre POST % FEV1/FVC: 72 72 0 FEV1: 2.88/74% 2.96/76% +2 FVC: 3.98/78% 4.10/80% +3 25-75% 95% 94% T.61/86% SVC: 3.89/76% DLCO: 45% DL/VA: 56% Cardiac Echo (02/12/2017) LV: EF=65-70%, hyperdynamic systolic function, type one diastolic dysfinction RV: WNL, TAPSE >1.5cm Video swallow 03/05/2017 No signs of aspiration intact swallow mechanism noted Medications: #1 methylprednisolone 40 mg IV every 12 #2 guaifenesin every 6 when necessary cough #3 Tessalon Perles 3 times a day #4 Lasix 40 mg daily #5 levofloxacin 500 mg day 4 of 7 #6 budesonide 160/4.5 one puff twice a day #7 albuterol nebulizer every 4 when necessary Assessment & Plan 66-year-old gentleman admitted with acute on chronic respiratory insufficiency and intermittently productive cough: #1 Dyspnea: Patient continues to have progressive dyspnea which is out of proportion to his pulmonary spirometry and lung volumes performed 07/21/16 but is within concordance with his decreased DLCO at 45% predicted. At this time I' ll decrease the patient's IV steroids to 40 mg prednisone daily. I will also consult carcinogens from the cardiology department for right heart catheterization along with shunt fraction evaluation. This patient's hypoxemia is not consistent with his pulmonary function tests and/or his recent CT of the thorax performed 02/12/17. #2 bronchoscopy: At this time the patient is too unstable to undergo bronchoscopy. The patient is more stable will perform bronchoscopy, conscious sedation and BAL for evaluation of chronic bronchitis with previous changes of the right lower lobe suggesting mucous plugging. Data Medications: Current Inpatient Medications Medications (Trade) Dose Ordered Sig/Jeffery Route Start Time Stop Time Status Last Admin Dose Admin Acetaminophen (Tylenol Tab) 650 mg Q4H PRN PO 03/15/17 17:30 04/14/17 17:29 Al Hydrox/Mg Hydrox/Simethicone (Maalox Max Susp) 15 ml Q4H PRN PO 03/15/17 17:30 04/14/17 17:29 Magnesium Hydroxide (Milk Of Magnesia Susp) 30 ml Q6H PRN PO 03/15/17 17:30 04/14/17 17:29 Ondansetron HCl (Zofran Inj) 4 mg Q6H PRN IV 03/15/17 17:30 04/14/17 17:29 Enoxaparin Sodium (Lovenox Inj) 30 mg DAILY@1800 SC 03/15/17 18:00 04/14/17 17:59 03/18/17 17:26 30 MG Albuterol/ Ipratropium (Duoneb) 3 ml Q6R INH 03/15/17 21:00 04/14/17 20:59 03/19/17 07:45 3 ML Albuterol Sulfate (Ventolin 0.5% 2.5MG/0.5ML Neb) 2.5 mg Q4R PRN INH 03/15/17 18:00 04/14/17 17:59 Azathioprine (Imuran Tab) 50 mg BID PO 03/15/17 21:00 04/14/17 20:59 03/18/17 20:53 50 MG Colestipol HCl (Colestid Tab) 1 gm BID PO 03/15/17 21:00 04/14/17 20:59 03/18/17 19:43 1 GM Loperamide HCl (Imodium Cap) 2 mg BID PO 03/15/17 21:00 04/14/17 20:59 03/18/17 20:52 2 MG Losartan Potassium (coZAAR TAB) 50 mg DAILY PO 03/16/17 09:00 04/15/17 08:59 03/18/17 08:01 50 MG Tiotropium [place] (Spiriva Handihaler Inhaler) 1 puff QAM INH 03/16/17 09:00 04/15/17 08:59 Future Hold Zolpidem Tartrate (Ambien Tab) 10 mg HS PRN PO 03/15/17 21:00 04/14/17 20:59 03/18/17 20:58 10 MG Nystatin (Mycostatin Susp) 5 ml QID PO 03/15/17 21:00 03/25/17 20:59 03/18/17 20:53 5 ML Budesonide/ Formoterol Fumarate (Symbicort 160/ 4.5 Inh) 1 puffs BID INH 03/15/17 21:00 04/14/17 20:59 03/19/17 10:05 1 PUFFS Levothyroxine Sodium (Synthroid Tab) 88 mcg DAILYBB PO 03/16/17 06:30 04/15/17 06:29 03/18/17 05:52 88 MCG Furosemide (Lasix Tab) 40 mg DAILY PO 03/17/17 09:00 04/16/17 08:59 03/18/17 08:01 40 MG Guaifenesin (Mucinex Contr Rel Tab) 600 mg Q12 PO 03/16/17 21:00 04/15/17 20:59 03/18/17 20:53 600 MG Levofloxacin (Levaquin Tab) 500 mg DAILY@1900 PO 03/16/17 19:00 03/21/17 19:01 03/18/17 17:26 500 MG Benzonatate (Tessalon Perles Cap) 100 mg TID PO 03/17/17 14:00 04/16/17 13:59 03/18/17 20:54 100 MG Menthol (Nice Mary Ann) 1 mary ann PRN PRN PO 03/17/17 11:45 04/16/17 11:44 Codeine Phosphate/ Guaifenesin (Robitussin-AC Sugar Free Syrup) 5 ml Q6HWA PRN PO 03/17/17 18:00 04/14/17 18:14 Methylprednisolone Sodium Succinate 40 mg/Syringe 0.64 ml @ 1.5 mls/min Q12 IV 03/18/17 21:00 04/15/17 12:59 03/19/17 10:05 1.5 MLS/MIN Vital Signs: Date Time Temp Pulse Resp B/P (MAP) Pulse Ox O2 Delivery O2 Flow Rate FiO2 03/19/17 08:20 Nasal Cannula 2.0 03/19/17 07:45 96 18 96 Nasal Cannula 2.0 03/19/17 07:24 36.5 73 18 139/77 (97) 94 03/18/17 23:20 Nasal Cannula 2.0 03/18/17 23:18 36.7 96 18 126/58 (80) 93 Nasal Cannula 2.0 03/18/17 20:00 94 Nasal Cannula 2.0 03/18/17 19:43 84 18 94 Nasal Cannula 2.0 03/18/17 18:19 36.3 86 20 126/69 94 Nasal Cannula 2.0 03/18/17 15:30 Nasal Cannula 2.0 03/18/17 15:05 36.3 86 20 126/69 (88) 94 Nasal Cannula 2.0 03/18/17 14:41 88 18 95 Nasal Cannula 2.0 Laboratory Results: Last 24 Hours Test 03/19/17 06:37 White Blood Count 12.86 K/uL Red Blood Count 3.53 M/uL Hemoglobin 11.4 g/dL Hematocrit 34.7 % Mean Corpuscular Volume 98.3 fL Mean Corpuscular Hemoglobin 32.3 pg Mean Corpuscular Hemoglobin Concent 32.9 g/dl RDW Standard Deviation 59.0 fL RDW Coefficient of Variation 16.6 % Platelet Count 520 K/uL Mean Platelet Volume 10.4 fL Nucleated RBC Absolute Count (auto) 0.04 K/uL Nucleated Red Blood Cells % 0.3 % Sodium Level 139 mmol/L Potassium Level 4.6 mmol/L Chloride Level 105 mmol/L Carbon Dioxide Level 26 mmol/L Anion Gap 8.0 mmol/L Blood Urea Nitrogen 20 mg/dl Creatinine 0.96 mg/dl Est Creatinine Clear Calc Drug Dose 85.5 ml/min Estimated GFR () 95.1 Estimated GFR (Non- 82.0 BUN/Creatinine Ratio 20.5 Random Glucose 112 mg/dl Calcium Level 8.4 mg/dl
--- NOTE | 2017-03-19 13:41 | Hospitalist Progress Note ---
Hospitalist Progress Note Date of Service Mar 19, 2017. (Shahana Baker ., [facility]) Subjective Pt evaluation today including: conversation w/ patient, conversation w/ family ( at bedside), physical exam, chart review, lab review, review of studies, review of inpatient medication list Pain: Intermittent chest pain with coughing PO Intake: Tolerating PO diet Voiding: no voiding problems The patient reports feeling about the same. He still complains of shortness of breath, dyspnea on exertion, wheezing and cough. He states that his cough has not really been productive today. He does have some intermittent chest pain on the left side when he is coughing, this remains unchanged from before. The patient denies fevers, chills, sweats, palpitations, claudication, nausea, vomiting, abdominal pain, dysuria, hematuria, urinary retention, paralysis, weakness, numbness and tingling. Additional Comments: See HPI for pertinent positives and negatives. All other systems reviewed and negative. (Shahana Baker ., ESPINOZA-C) Objective Vital Signs Date Time Temp Pulse Resp B/P (MAP) Pulse Ox O2 Delivery O2 Flow Rate FiO2 03/19/17 08:20 Nasal Cannula 2.0 03/19/17 07:45 96 18 96 Nasal Cannula 2.0 03/19/17 07:24 36.5 73 18 139/77 (97) 94 03/18/17 23:20 Nasal Cannula 2.0 03/18/17 23:18 36.7 96 18 126/58 (80) 93 Nasal Cannula 2.0 03/18/17 20:00 94 Nasal Cannula 2.0 03/18/17 19:43 84 18 94 Nasal Cannula 2.0 03/18/17 18:19 36.3 86 20 126/69 94 Nasal Cannula 2.0 03/18/17 15:30 Nasal Cannula 2.0 03/18/17 15:05 36.3 86 20 126/69 (88) 94 Nasal Cannula 2.0 03/18/17 14:41 88 18 95 Nasal Cannula 2.0 (Shahana Baker ., ESPINOZA-C) Physical Exam Notes: General Appearance: WD/WN, no apparent distress Eyes: normal inspection, PERRL, EOMI ENT: normal ENT inspection, hearing grossly normal, pharynx normal Neck: supple, no JVD, trachea midline Respiratory/Chest: no respiratory distress, + diffuse wheezing, +poor air movement + pertinent finding (sounds dyspneic even at rest and with talking) Cardiovascular: regular rate, rhythm, no gallop, no murmur Abdomen: normal bowel sounds, non tender, soft Extremities: non-tender, normal inspection, no pedal edema Neurologic/Psychiatric: alert, normal mood/affect, oriented x 3 Skin: normal color, warm/dry, no rash (Shahana Baker PA-C) Laboratory Results Last 24 Hours Test 03/19/17 06:37 White Blood Count 12.86 K/uL Red Blood Count 3.53 M/uL Hemoglobin 11.4 g/dL Hematocrit 34.7 % Mean Corpuscular Volume 98.3 fL Mean Corpuscular Hemoglobin 32.3 pg Mean Corpuscular Hemoglobin Concent 32.9 g/dl RDW Standard Deviation 59.0 fL RDW Coefficient of Variation 16.6 % Platelet Count 520 K/uL Mean Platelet Volume 10.4 fL Nucleated RBC Absolute Count (auto) 0.04 K/uL Nucleated Red Blood Cells % 0.3 % Sodium Level 139 mmol/L Potassium Level 4.6 mmol/L Chloride Level 105 mmol/L Carbon Dioxide Level 26 mmol/L Anion Gap 8.0 mmol/L Blood Urea Nitrogen 20 mg/dl Creatinine 0.96 mg/dl Est Creatinine Clear Calc Drug Dose 85.5 ml/min Estimated GFR () 95.1 Estimated GFR (Non- 82.0 BUN/Creatinine Ratio 20.5 Random Glucose 112 mg/dl Calcium Level 8.4 mg/dl (Shahana Baker PA-C) Diagnostic Results Reviewed the following studies and agree with interpretation as follows: Patient Name: CHARLES TORRES Unit Number: [id number] Dictated: 03/18/17917 Transcribed: 03/18/17917 Culture Jam Printed Date/Time: [~ rep prt dt]/[~ rep prt tm] [~ rep ct labl] - [~ rep ct ivnm] [facility] [place] [address] Dictated: 03/18/17917 Transcribed: 03/18/17917 Culture Jam Printed Date/Time: [~ rep prt dt]/[~ rep prt tm] [~ rep ct labl] - [~ rep ct ivnm] Patient: CHARLES TORRES Address1: [address] [place] [address] Rec: [id number] Address2: Acct ID: [id number] [facility] Zip: [place] [address] Date: 1950 Sex: M Room/Bed: N282-2 Ref Phy: Jocelyne Cook M.D. SC: [facility] Att Phy: Artem Dodson M.D. Report #: [id number] Silvana Phy: Jocelyne Cook M.D. Test: CXR Admit Phy: Artem Dodson M.D. Edge Finisher: JUSTINE Interpreting Phy: Anthony Armenta MD Diagnosis: COPD, HYPOXIA Ordering Phy: Favio Green DO Service Date: 03/18/17 Admit Date: 03/15/17 MNE: [id number] CONF: DICTATED BY: Anthony Armenta M.D.]] CC: Favio Green, Jocelyne Campos M.D. Kedem, Roy ., M.D. Endcc: [~ rep ct add3]] CHEST 2 VIEWS ROUTINE HISTORY: severe cough COMPARISON: Chest 03/15/2017. FINDINGS: Mild diffuse interstitial thickening which is likely chronic. No new focal lung consolidations to suggest pneumonia. No evidence for pulmonary edema. No pleural effusions. No pneumothorax. The heart is normal in size. IMPRESSION: No change in the mild diffuse interstitial thickening which is likely chronic. No new focal lung consolidations to suggest pneumonia. Electronically signed by: Anthony Armenta M.D. 03/18/2017 9:19 AM Dictated Date/Time: 03/18/2017 9:18 AM The status of this report is Signed. Draft = Not yet reviewed or approved by Radiologist. Signed = Reviewed and approved by Radiologist. <AttendingPhy>Artem Dodson M.D.</AttendingPhy> <FamilyPhy>Jocelyne Cook M.D. </FamilyPhy> <PrimaryPhy>Jocelyne Cook M.D.</PrimaryPhy> <UnitNumber> [id number]</UnitNumber> <VisitNumber>[id number]</VisitNumber> <PatientName> CHARLES TORRES</PatientName> <DateOfBirth>1950</DateOfBirth> <Location>[facility] </Location> <ServiceDate></ServiceDate> <MNE>ESINDI</MNE> <OrderingPhy>Favio Green DO</OrderingPhy> <OrderingPhyMNE>f rep ord dr norman</OrderingPhyMNE> < DictatingPhyMNE>f rep dict dr norman</DictatingPhyMNE> <CCListMNE>f rep ct omare</ CCListMNE> <AdmittingPhyMNE>f pt admit dr norman</AdmittingPhyMNE> <AttendingPhyMNE >f pt attend dr norman</AttendingPhyMNE> <ConsultingPhyMNE>f pt consult dr norman</ConsultingPhyMNE> <FamilyPhyMNE>f pt fam dr norman</FamilyPhyMNE> <OtherPhyMNE>f pt other dr norman</OtherPhyMNE> < PrimaryPhyMNE>f pt prim care dr norman</PrimaryPhyMNE> <ReferringPhyMNE>f pt referring dr norman</ReferringPhyMNE> (Shahana Baker, ANJALI) Assessment and Plan 66 y/o male with a history of COPD, chronic diastolic CHF, Crohn's disease, HLD , HTN, hypothyroidism and insomnia who presents for a direct admission from Dr. Alamo's office with persistent productive cough and worsening shortness of breath. The patient has had several exacerbations of his COPD in the last few months, and during his most recent hospitalization one month ago was started on continuous supplemental oxygen at home (2L). The patient states he has had a productive cough since last month. COPD Exacerbation, hypoxia--stable - Admitted to medical floor - CXR 03/15 shows emphysema and a possible mild infectious process, possibly bronchiolitis - Repeat CXR 03/18 no significant change - Pulmonology consulted for recurrent COPD exacerbations, appreciate recs: Patient too unstable for bronchoscopy at this time. If he becomes more stable, may be able to do bronchoscopy at later time. Decrease steroids to 40 daily. Consult cardiology for right heart catheterization to work up hypoxia - Duoneb q6h - Albuterol q4h PRN - Continue Levaquin 500 mg PO qd. Day #5 - Decrease steroids to Solu-Medrol 40 mg IV qd - Oxygen by Nasal Cannulae to keep oxygen levels > 90%, currently on baseline 2 L - Continue Symbicort 2 puff inh BID - Continue Guaifenesin Codeine - Continue Spiriva 1 puff QAM Chronic diastolic CHF--stable -Continue Lasix 40 mg PO qd Crohn's--stable - Continue Imuran 50 mg PO BID - Continue Loperamide HCl 2 mg PO BID Hyperlipidemia - Continue Colestipol 1 gm PO BID HTN--stable -Resume amlodipine 5 mg PO qd Hypothyroidism - Continue Synthroid 88 mcg PO qPM Insomnia - Continue Zolpidem 10mg PO HS Oral Thrush - Nystatin swish and swallow. Day #5 of 10. DVT Prophylaxis - Lovenox Code Status -Level I, FULL RESUSCITATION STATUS (Shahana Baker ., ANJALI) Reviewed: Pt Seen/Exam by Me (Theresa Perea MD) History Physician Marking Machine Tender Supervision Note: I interviewed and examined the patient. Discussed with ESPINOZA Baker and agree with findings and plan as documented in the note. Any exceptions or clarifications are listed here: C/o cough persistent, dyspnea with minimal SOB. VSS Mild resp distress with tachypnea with standing up RRR no mgr Diffuse wheezing and rhonchi Abd soft NT ND Ext Left leg with 2+ pitting edema, RLE with trace pitting edema Pt with persistent SOB and cough, productive cough x several months.With decreased DLCO on PFTs, mild COPD, with hypoxia out of proportion to disease. -plan for RHC tomorrow to assess for shunt -check Doppler LLE Documented By: Theresa Perea (Theresa Perea MD)
[2017-03-19 14:20] VITALS: BP 131/73; PULSE 96; O2SAT 91
[2017-03-19 14:25] VITALS: PULSE 97; O2SAT 96
[2017-03-19 15:25] VITALS: BP 133/73; PULSE 86; TEMP 36.4; O2SAT 91
[2017-03-19] MEDS: LEVOFLOXACIN 500 MG TAB PO SCH (18:32)
[2017-03-19] MEDS: ENOXAPARIN 30 MG/0.3 ML SYR SC SCH (18:32)
[2017-03-19 19:40] VITALS: PULSE 98; O2SAT 96
--- NOTE | 2017-03-19 19:44 | CARDIOLOGY CONSULTATION ---
DATE OF CONSULTATION: 03/19/2017 CONSULTATION REQUESTED BY: Dr. Alamo. REASON FOR CONSULTATION: Persistent shortness of breath/hypoxia. HISTORY OF PRESENT ILLNESS: Mr. Boone is a pleasant 66-year-old man with a history of Crohn's disease, hypertension, hypothyroidism, obstructive sleep apnea, intolerant to CPAP, who was admitted from his outpatient choke setter's office in the setting of progressive shortness of breath. The patient gives a history of difficulty breathing since May of 2016. At that time, he initially had a COPD exacerbation. Since that time, he has had 2 additional hospitalizations with this being his third in the setting of worsening shortness of breath. In November of 2016, he was admitted in the setting of influenza A infection and COPD exacerbation and earlier in January was again admitted with what was thought to be a COPD exacerbation with questionable pneumonia. Despite treatment, he states continued worsening shortness of breath, now has been on oxygen for the last month and states that he only walks basically across the room in his home before getting short of breath. He had presented to Dr. Alamo's office last Sunday and was unable to make it into the building before becoming short of breath and as a result was sent to the hospital for further evaluation. Since being here, he has been treated with IV steroids, antibiotics and his home COPD regimen. With that though, he continues to have dyspnea with minimal exertion. Chest x-rays have been largely unremarkable. He previously had a CT and CTA of his chest during prior hospitalizations, which were largely unremarkable except for a questionable bronchiectasis in the right lower lobe; however, no evidence of PE. Prior echo done in January showed normal LV function with grade 1 diastolic dysfunction and normal RV function. Of note, the patient did have outpatient PFTs back in July of 2016, which show only mild obstructive disease, but severely reduced diffusion capacity out of proportion to his lung disease. PAST MEDICAL HISTORY: 1. Crohn's disease. 2. Hypertension. 3. Hypothyroidism. 4. Diverticular disease. 5. Diastolic dysfunction. 6. Obstructive sleep apnea, intolerant of CPAP. PAST SURGICAL HISTORY: Tonsillectomy. FAMILY HISTORY: His mother at age 95, had 2 sisters with breast cancer, 1 of the sister developed congestive heart failure in the setting of breast cancer. Father was with heart disease in his 80s. REVIEW OF SYSTEMS: A 10-point review of systems completed and otherwise negative unless stated in HPI. HOME MEDICATIONS: Include, albuterol p.r.n., amlodipine 5, azathioprine 50 b.i.d., Symbicort, colestipol, vitamin B12, furosemide 40 daily, Duonebs, levothyroxine, loperamide, losartan 50 mg, multivitamin, Spiriva, and zolpidem. PHYSICAL EXAMINATION: VITAL SIGNS: Temperature 36.5, pulse 73, blood pressure 139/77, he is satting 96% on 2 liters. GENERAL: The patient appears mildly dyspneic while at rest and with increasing dyspnea with conversation. HEENT: His sclerae are anicteric. His oropharynx is clear. Nasal cannula in place. NECK: Supple. There is no appreciable JVD. Normal carotid upstrokes. LUNGS: He has rhonchorous breath sounds, most notably at the right lower lobe, has few crackles at the bases and rare scattered wheezes. CARDIOVASCULAR: Regular with no appreciable murmurs, rubs or gallops. ABDOMEN: Soft, nontender, nondistended with positive bowel sounds. EXTREMITIES: Warm with no significant lower extremity edema. He has intact distal pulses. SKIN: Shows no rashes or lesions. NEUROLOGIC: Grossly nonfocal. PSYCHIATRIC: He is alert and oriented x3. Mood and affect is appropriate. LABORATORY DATA: Sodium 139, potassium 4.6, BUN 20, creatinine of 0.9. White blood cell count 12.9, hemoglobin of 11.4, platelets of 520. Sputum culture shows moderate normal jennifer. IMAGING: As discussed above. EKG on 03/12/2017 showed normal sinus rhythm with no significant ST abnormalities. IMPRESSION AND PLAN: 1. Persistent hypoxia/dyspnea. 2. Chronic obstructive pulmonary disease exacerbation. 3. Reduced diffusion capacity. 4. Diastolic dysfunction. 5. Obstructive sleep apnea. 6. Crohn's disease. 7. Hypertension. 8. Hypothyroidism. Mr. Boone has persistent dyspnea with minimal exertion despite supplemental oxygen and ongoing therapy for COPD exacerbation/pneumonia. Current breathing symptoms are out of proportion to PFTs, lung imaging, echo findings and some concern for possible pulmonary hypertension in the setting of reduced diffusion capacity or undiagnosed right to left shunting. As a result, will plan to further evaluate with right heart catheterization. Discussed the risks, benefits, alternatives to procedure with patient and he is willing to proceed. We will plan on performing procedure tomorrow via right antecubital vein. Please keep the patient n.p.o. overnight. Further recommendations pending findings. Thank you for allowing us to participate in the care of this patient. Please contact with any questions. KATHI
--- NOTE | 2017-03-19 22:15 | DIAGNOSTIC IMAGING REPORT ---
ULTRASOUND LEFT VENOUS DOPP LOWER EXT UNILAT CLINICAL HISTORY: Left leg edema COMPARISON STUDY: 02/17/2017 FINDINGS: Real-time and color flow Doppler imaging were performed. Flow was seen within the femoral, popliteal and calf veins with no intraluminal thrombus demonstrated. The saphenous vein is patent. IMPRESSION: No evidence of left lower extremity DVT. Electronically signed by: Jasmeet Jones M.D. 03/19/2017 10:13 PM Dictated Date/Time: 03/19/2017 10:13 PM
[2017-03-19] MEDS: ZOLPIDEM TARTRATE 10 MG TAB PO PRN (23:14)
[2017-03-20] VITALS (10 sets, daily range): BP systolic 126–152; BP diastolic 73–84; PULSE 70–105; TEMP 36.3–36.6; O2SAT 90–97
[2017-03-20] MEDS: ALBUT/IPRATROP 3MG/0.5MG NEB 3 ML VIAL INH SCH ×4 (02:01→19:08)
[2017-03-20] MEDS: LEVOTHYROXINE 88 MCG TAB PO SCH (05:10)
[2017-03-20 06:21] LABS: HEMATOCRIT 36.3 % (42-52); MEAN CELL VOLUME 97.1 fL (80-100); MEAN CORPUSCULAR HEMOGLOBIN 31.6 pg (25-34); MEAN CORPUSCULAR HGB CONC 32.5 g/dl (32-36); PLATELET COUNT 543 K/uL (130-400); RED BLOOD COUNT 3.74 M/uL (4.7-6.1); WHITE BLOOD COUNT 11.51 K/uL (4.8-10.8)
[2017-03-20 07:02] LABS: BUN/CREATININE RATIO 24.3 (10-20); CALCIUM 8.2 mg/dl (8.5-10.1); CREATININE 0.99 mg/dl (0.60-1.40); POTASSIUM 3.7 mmol/L (3.5-5.1)
[2017-03-20] MEDS ORDERED: MIDAZOLAM HCL 1 MG/ML 2ML VIAL ONE (08:03)
[2017-03-20] MEDS ORDERED: FENTANYL CITRATE INJ 50 MCG/1 ML 2 ML VIAL ONE (08:03)
[2017-03-20 08:07] LABS: IMMUNOGLOBULN M 58.5 mg/dL (40-230)
--- NOTE | 2017-03-20 09:04 | Procedure Note ---
Pre-Mod Sedation Assessment General Date of Moderate Sedation: Mar 20, 2017. Vital Signs: Vital Signs Past 12 Hours Date Time Temp Pulse Resp B/P (MAP) Pulse Ox O2 Delivery O2 Flow Rate FiO2 03/20/17 07:34 91 18 97 Nasal Cannula 2.0 03/20/17 07:23 36.5 75 19 152/84 (106) 96 Nasal Cannula 2.0 03/20/17 00:10 36.6 84 20 145/80 (101) 92 Room Air 03/20/17 00:00 Nasal Cannula 2.0 Review Cardiovascular: regular rate, rhythm, no edema Abdomen: normal bowel sounds, non tender Lungs: chest non-tender, lungs clear Airway Class: II Pre-Sedation Airway Assessment Oral Cavity: WNL Able to Visualize Vocal Cords: No Short Thick Neck: No Hx of Sleep Apnea: No Smoking Status: Former Smoker Mallampati Classification: Class II ASA Classification: Class II Procedure Planning Contraindications-for Mod Sed: None Yes Notes The planned sedation has been discussed with the patient and consent obtained. I have identified the patient, determined the appropriateness of sedation and have assessed the patient immediately prior to the procedure. All medicine(s) and interventions are by my order.
--- NOTE | 2017-03-20 09:05 | Procedure Note ---
Post-Mod Sedation Assessment General Date of Moderate Sedation Mar 20, 2017. Vital Signs: Vital Signs Past 12 Hours Date Time Temp Pulse Resp B/P (MAP) Pulse Ox O2 Delivery O2 Flow Rate FiO2 03/20/17 07:34 91 18 97 Nasal Cannula 2.0 03/20/17 07:23 36.5 75 19 152/84 (106) 96 Nasal Cannula 2.0 03/20/17 00:10 36.6 84 20 145/80 (101) 92 Room Air 03/20/17 00:00 Nasal Cannula 2.0 Review - Discharge Criteria Vital Signs Stable: Yes Alert/Oriented/Conversant: Yes Returned to Baseline Mental St: Yes Nausea Absent/Minimal: Yes Pain/Discomfort/Absent/Minimal: Yes Normal/Baseline Respirations: Yes Active Bleeding?: No Pt Received D/C Instructions: N/A Prescriptions Given: None Specific Proced. D/C Criteria Distal Pulses Present (Cardiac: N/A Groin site assessed-Card Cath: N/A Voided Prior To Discharge: N/A Discharged Patients Adult Escort/Transportation: Yes
[2017-03-20] MEDS: BUDESONIDE/FORMOTEROL FUMARATE 160/4.5 60 PUFFS/INHALER INH SCH ×2 (09:21→20:58)
[2017-03-20] MEDS: METHYLPREDNISOLONE IV 40 MG in SYRINGE 0 ML IV SCH (09:21)
[2017-03-20] MEDS: FUROSEMIDE 40 MG TAB PO SCH (09:21)
[2017-03-20] MEDS: LOSARTAN POTASSIUM 50 MG TAB PO SCH (09:22)
[2017-03-20] MEDS: GUAIFENESIN 600 MG TABCR PO SCH ×2 (09:22→20:58)
[2017-03-20] MEDS: NYSTATIN SUSP 500,000 U/5 ML UDC PO SCH ×4 (09:22→20:59)
[2017-03-20] MEDS: BENZONATATE 100MG CAP PO SCH ×3 (09:22→20:59)
[2017-03-20] MEDS: AZATHIOPRINE 50 MG TAB PO SCH ×2 (09:23→21:00)
[2017-03-20] MEDS: LOPERAMIDE HCL 2 MG CAP PO SCH ×2 (09:23→20:58)
[2017-03-20] MEDS: COLESTIPOL HCL 1 GM TAB PO SCH ×2 (09:23→20:59)
--- NOTE | 2017-03-20 09:37 | Cardiac Catheterization ---
Procedure Note Procedure Date Mar 20, 2017. Pre-Procedure Diagnosis Cardiothoracic Symptom AUC Score n/a Post-Procedure Diagnosis Normal Intracardiac Pressures Procedure(s) Performed Right Heart Cath Nursing Home Assistant Ho Proposal Director(s) Oscar Estimated Blood Loss 5 Medication(s) Lidocaine 1% Summary of Findings -- RIGHT HEART CATHETERIZATION -- Sterile right antecubital vein IV place pre-procedure. IV exchanged for 6Fr slender sheath. 6Fr swan navigated to heart under fluoroscopic guidance. 3 cc of visipaque contrast used to visualize basilic/axillary vein junction. RA 5 RV 25/7 PA 26/7 (16) PCW 8 TPG 8 mmHg PVR 1 Wood Unit Arlyn CO/CI 7.7/2.5 Thermal CO/CI 5.8/1.9 AoSat 97% on 15 L NC PaSat 66% RVSat 68% RAlo 72% RAmid 67% RAhigh 67% SVC 67% IVC 71% Qp/Qs 0.9 Summary: 1. Normal intracardiac filling pressures. 2. Preserved cardiac output 3. Normal pulmonary artery pressures and pulmonary vascular resistance. 4. No evidence of hemodynamically significant left to right intracardiac shunt Recommendations: Return to PCU for continued monitoring Consider TTE or REJI with bubble study if concern for significant right to left shunt persists Hemodynamics Rest Ao: n/a Final Ao: n/a LV: n/a Recommendations Medical therapy and/or Counseling Specimens None Radiation Exposure (mGy) 2151 Contrast (mls) 3 Fluids (cc crystalloids) 55 Drains none Anesthesia local Procedural Complication(s) None Disposition PCU ACC Data Cardiac Status Clinical evaluation leading to the procedure CAD Presntation: Sx unlikely to be ischemic Anginal Classification: No symptoms Heart Failure: Yes, NYHA Class: CCS III Imaging studies past 6 months: Yes Closure Device Percutaneous Entry Location: Brachial Closure Device: none - manual hold Intraprocedure Events Significant Dissection: No Perforation: No
[2017-03-20 09:55] LABS: ISTAT ARTERIAL BLOOD GAS HCO3 26 meq/L (19-24); ISTAT ARTERIAL BLOOD GAS PCO2 42 mmHg (35-46); ISTAT ARTERIAL BLOOD GAS PO2 35 mmHg (80-95); ISTAT CARBON DIOXIDE 27 mEq/l (24-31)
[2017-03-20 09:55] LABS: ISTAT ARTERIAL BLOOD GAS HCO3 25 meq/L (19-24); ISTAT ARTERIAL BLOOD GAS PCO2 41 mmHg (35-46); ISTAT ARTERIAL BLOOD GAS PO2 37 mmHg (80-95); ISTAT ARTERIAL BLOOD GAS pH 7.39 (7.35-7.45); ISTAT CARBON DIOXIDE 26 mEq/l (24-31)
[2017-03-20 09:55] LABS: ISTAT ARTERIAL BLOOD GAS HCO3 24 meq/L (19-24); ISTAT ARTERIAL BLOOD GAS PCO2 39 mmHg (35-46); ISTAT ARTERIAL BLOOD GAS PO2 35 mmHg (80-95); ISTAT ARTERIAL BLOOD GAS pH 7.38 (7.35-7.45); ISTAT CARBON DIOXIDE 25 mEq/l (24-31)
[2017-03-20 09:55] LABS: ISTAT ARTERIAL BLOOD GAS HCO3 23 meq/L (19-24); ISTAT ARTERIAL BLOOD GAS PCO2 38 mmHg (35-46); ISTAT ARTERIAL BLOOD GAS PO2 34 mmHg (80-95); ISTAT CARBON DIOXIDE 24 mEq/l (24-31)
[2017-03-20 09:55] LABS: ISTAT ARTERIAL BLOOD GAS HCO3 27 meq/L (19-24); ISTAT ARTERIAL BLOOD GAS PCO2 41 mmHg (35-46); ISTAT ARTERIAL BLOOD GAS PO2 37 mmHg (80-95); ISTAT ARTERIAL BLOOD GAS pH 7.42 (7.35-7.45); ISTAT CARBON DIOXIDE 28 mEq/l (24-31)
[2017-03-20 09:55] LABS: ISTAT ARTERIAL BLOOD GAS HCO3 27 meq/L (19-24); ISTAT ARTERIAL BLOOD GAS PCO2 44 mmHg (35-46); ISTAT ARTERIAL BLOOD GAS PO2 < 32 mmHg (80-95); ISTAT CARBON DIOXIDE 28 mEq/l (24-31)
[2017-03-20 09:55] LABS: ISTAT ARTERIAL BLOOD GAS HCO3 26 meq/L (19-24); ISTAT ARTERIAL BLOOD GAS PCO2 41 mmHg (35-46); ISTAT ARTERIAL BLOOD GAS PO2 35 mmHg (80-95); ISTAT ARTERIAL BLOOD GAS pH 7.41 (7.35-7.45); ISTAT CARBON DIOXIDE 28 mEq/l (24-31)
--- NOTE | 2017-03-20 12:19 | Hospitalist Progress Note ---
Hospitalist Progress Note Date of Service Mar 20, 2017. (Shahana Baker .[facility]) Subjective Pt evaluation today including: conversation w/ patient, physical exam, chart review, lab review, review of studies, review of inpatient medication list Pain: None PO Intake: Tolerating PO diet Voiding: no voiding problems Patient reports feeling the same. He still complains of shortness of breath, dyspnea on exertion, productive cough and wheezing. He also still complains of intermittent chest pain when coughing that remains unchanged. The patient went for a right heart cath today which he tolerated well. The patient denies fevers , chills, sweats, palpitations, claudication, nausea, vomiting, abdominal pain, dysuria, hematuria, urinary retention, paralysis, weakness, numbness and tingling. Additional Comments: See HPI for pertinent positives and negatives. All other systems reviewed and negative. (Shahana Baker PA-C) Objective Vital Signs Date Time Temp Pulse Resp B/P (MAP) Pulse Ox O2 Delivery O2 Flow Rate FiO2 03/20/17 11:14 36.5 81 19 131/73 (92) 92 Nasal Cannula 2.0 03/20/17 10:25 Nasal Cannula 2.0 03/20/17 09:00 70 16 150/84 (106) 95 Room Air 03/20/17 07:34 91 18 97 Nasal Cannula 2.0 03/20/17 07:23 36.5 75 19 152/84 (106) 96 Nasal Cannula 2.0 03/20/17 00:10 36.6 84 20 145/80 (101) 92 Room Air 03/20/17 00:00 Nasal Cannula 2.0 03/19/17 19:40 98 18 96 Nasal Cannula 2.0 03/19/17 16:00 Nasal Cannula 2.0 03/19/17 15:25 36.4 86 18 133/73 (93) 91 Nasal Cannula 2.0 03/19/17 14:25 97 18 96 Nasal Cannula 2.0 03/19/17 14:20 96 91 (Shahana Baker, [facility]) Physical Exam Notes: General Appearance: WD/WN, no apparent distress Eyes: normal inspection, PERRL, EOMI ENT: normal ENT inspection, hearing grossly normal, pharynx normal Neck: supple, no JVD, trachea midline Respiratory/Chest: no respiratory distress, + wheezing somewhat improved, + poor air movement Cardiovascular: regular rate, rhythm, no gallop, no murmur Abdomen: normal bowel sounds, non tender, soft Extremities: non-tender, normal inspection, + swelling (1-2+ pitting edema LLE) Neurologic/Psychiatric: alert, normal mood/affect, oriented x 3 Skin: normal color, warm/dry, no rash (Shahana Baker ., ANJALI) Laboratory Results Last 24 Hours Test 03/20/17 06:00 03/20/17 08:38 03/20/17 08:45 03/20/17 08:48 White Blood Count 11.51 K/uL Red Blood Count 3.74 M/uL Hemoglobin 11.8 g/dL Hematocrit 36.3 % Mean Corpuscular Volume 97.1 fL Mean Corpuscular Hemoglobin 31.6 pg Mean Corpuscular Hemoglobin Concent 32.5 g/dl RDW Standard Deviation 57.5 fL RDW Coefficient of Variation 16.4 % Platelet Count 543 K/uL Mean Platelet Volume 10.0 fL Nucleated RBC Absolute Count (auto) 0.13 K/uL Nucleated Red Blood Cells % 1.1 % Sodium Level 139 mmol/L Potassium Level 3.7 mmol/L Chloride Level 104 mmol/L Carbon Dioxide Level 26 mmol/L Anion Gap 9.0 mmol/L Blood Urea Nitrogen 24 mg/dl Creatinine 0.99 mg/dl Est Creatinine Clear Calc Drug Dose 82.9 ml/min Estimated GFR () 91.6 Estimated GFR (Non- 79.0 BUN/Creatinine Ratio 24.3 Random Glucose 94 mg/dl Calcium Level 8.2 mg/dl Vitamin B12 Level 520 pg/mL Folate 14.57 ng/mL Immunoglobulin G 712.0 mg/dL Immunoglobulin A 137.0 mg/dL Immunoglobulin M 58.5 mg/dL Bedside Blood Gas pH (LAB) 7.40 7.41 7.40 Bedside Blood Gas pCO2 (LAB) 38 mmHg 41 mmHg 42 mmHg Bedside Blood Gas pO2 (LAB) 34 mmHg 35 mmHg 35 mmHg Bedside Blood Gas HCO3 (LAB) 23 meq/L 26 meq/L 26 meq/L Bedside Blood Gas Total CO2 24 mEq/l 28 mEq/l 27 mEq/l Bedside Blood Gas Base Excess (LAB) -2.0 meq/L 2.0 meq/L 1.0 meq/L Bedside Blood Gas O2 Saturation 66.0 % 68.0 % 67.0 % Test 03/20/17 08:49 03/20/17 08:55 03/20/17 09:00 03/20/17 09:03 Bedside Blood Gas pH (LAB) 7.38 7.42 7.39 7.40 Bedside Blood Gas pCO2 (LAB) 39 mmHg 41 mmHg 41 mmHg 44 mmHg Bedside Blood Gas pO2 (LAB) 35 mmHg 37 mmHg 37 mmHg < 32 mmHg Bedside Blood Gas HCO3 (LAB) 24 meq/L 27 meq/L 25 meq/L 27 meq/L Bedside Blood Gas Total CO2 25 mEq/l 28 mEq/l 26 mEq/l 28 mEq/l Bedside Blood Gas Base Excess (LAB) -2.0 meq/L 2.0 meq/L 0.0 meq/L 2.0 meq/L Bedside Blood Gas O2 Saturation 67.0 % 72.0 % 71.0 % 60.0 % (Shahana Baker, ANJALI) Diagnostic Results Reviewed the following studies and agree with interpretation as follows: Patient Name: CHARLES TORRES Unit Number: [id number] Dictated: 03/19/172212 Transcribed: 03/19/172212 ARG Printed Date/Time: [~ rep prt dt]/[~ rep prt tm] [~ rep ct labl] - [~ rep ct ivnm] [facility] [place] [place] [address] Dictated: 03/19/172212 Transcribed: 03/19/172212 ARG Printed Date/Time: [~ rep prt dt]/[~ rep prt tm] [~ rep ct labl] - [~ rep ct ivnm] Patient: CHARLES TORRES Address1: [address] [place] [address] Rec: [id number] Address2: Acct ID: [id number] [facility] Zip: [place] [address] Date: 1950 Sex: M Room/Bed: [facility] Ref Phy: Jocelyne Cook M.D. SC: C.MED Att Phy: Theresa Perea MD Report #: [id number] Silvana Phy: Jocelyne Cook M.D. Test: VDLEU Admit Phy: Artem Dodson M.D. Information Services Vice President: BRENDON Interpreting Phy: Jasmeet Jones M.D. Diagnosis: COPD, HYPOXIA Ordering Phy: Theresa Perea MD Service Date: 03/19/17 Admit Date: 03/15/17 MNE: [id number] CONF: DICTATED BY: Jasmeet Jones M.D.]] CC: Jocelyne Cook M.D. Tussey, Natalie B., MD Endcc: [~ rep ct add3]] ULTRASOUND LEFT VENOUS DOPP LOWER EXT UNILAT CLINICAL HISTORY: Left leg edema COMPARISON STUDY: 02/17/2017 FINDINGS: Real-time and color flow Doppler imaging were performed. Flow was seen within the femoral, popliteal and calf veins with no intraluminal thrombus demonstrated. The saphenous vein is patent. IMPRESSION: No evidence of left lower extremity DVT. Electronically signed by: Jasmeet Jones M.D. 03/19/2017 10:13 PM Dictated Date/Time: 03/19/2017 10:13 PM The status of this report is Signed. Draft = Not yet reviewed or approved by Radiologist. Signed = Reviewed and approved by Radiologist. <AttendingPhy>Theresa Perea MD</AttendingPhy> <FamilyPhy>Jocelyne Cook M.D.</FamilyPhy> <PrimaryPhy>Jocelyne Cook M.D.</PrimaryPhy> <UnitNumber> [id number]</UnitNumber> <VisitNumber>[id number]</VisitNumber> <PatientName> CHARLES TORRES</PatientName> <DateOfBirth>1950</DateOfBirth> <Location>C.MED </Location> <ServiceDate></ServiceDate> <MNE>ESINDI</MNE> <OrderingPhy>Theresa Perea MD</OrderingPhy> <OrderingPhyMNE>f rep ord dr norman</OrderingPhyMNE> < DictatingPhyMNE>f rep dict dr norman</DictatingPhyMNE> <CCListMNE>f rep ct mne</ CCListMNE> <AdmittingPhyMNE>f pt admit dr norman</AdmittingPhyMNE> <AttendingPhyMNE >f pt attend dr norman</AttendingPhyMNE> <ConsultingPhyMNE>f pt consult dr norman</ConsultingPhyMNE> <FamilyPhyMNE>f pt fam dr norman</FamilyPhyMNE> <OtherPhyMNE>f pt other dr norman</OtherPhyMNE> < PrimaryPhyMNE>f pt prim care dr norman</PrimaryPhyMNE> <ReferringPhyMNE>f pt referring dr norman</ReferringPhyMNE> [place] [address] Cardiac Catheterization Patient Name: CHARLES TORRES Admit Date: 03/15/17 [facility] Rec: [id number] Att Phy: Theresa Perea MD Acct ID: [id number] Silvana Phy: Jocelyne Cook M.D. Date: 1950 Fam Phy: Jocelyne Cook M.D. Age: 66 Location: [facility] Sex: M Room/Bed: 82- CC: Jocelyne Cook M.D. Jones, Christopher R., MD *NOTICE TO RECEIVING DEMOCRAT/AGENCY This information is strictly Confidential and protected under [place] law. [place] law prohibits you from making any further disclosure of this information unless further disclosure is expressly permitted by the written consent of the person to whom it pertains or is authorized by law. A general authorization for the release of medical or other information is not sufficient for this purpose. Hospital accepts no responsibility if the information is made available to any other person, INCLUDING THE PATIENT. Procedure Note Procedure Date Mar 20, 2017. Pre-Procedure Diagnosis Cardiothoracic Symptom AUC Score n/a Post-Procedure Diagnosis Normal Intracardiac Pressures Procedure(s) Performed Right Heart Cath Draw Frame Runner Ho Care Transition Manager(s) Oscar Estimated Blood Loss 5 Medication(s) Lidocaine 1% Summary of Findings -- RIGHT HEART CATHETERIZATION -- Sterile right antecubital vein IV place pre-procedure. IV exchanged for 6Fr slender sheath. 6Fr swan navigated to heart under fluoroscopic guidance. 3 cc of visipaque contrast used to visualize basilic/axillary vein junction. RA 5 RV 25/7 PA 26/7 (16) PCW 8 TPG 8 mmHg PVR 1 Wood Unit Arlyn CO/CI 7.7/2.5 Thermal CO/CI 5.8/1.9 AoSat 97% on 15 L NC PaSat 66% RVSat 68% RAlo 72% RAmid 67% RAhigh 67% SVC 67% IVC 71% Qp/Qs 0.9 Summary: 1. Normal intracardiac filling pressures. 2. Preserved cardiac output 3. Normal pulmonary artery pressures and pulmonary vascular resistance. 4. No evidence of hemodynamically significant left to right intracardiac shunt Recommendations: Return to PCU for continued monitoring Consider TTE or REJI with bubble study if concern for significant right to left shunt persists Hemodynamics Rest Ao: n/a Final Ao: n/a LV: n/a Recommendations Medical therapy and/or Counseling Specimens None Radiation Exposure (mGy) 2151 Contrast (mls) 3 Fluids (cc crystalloids) 55 Drains none Anesthesia local Procedural Complication(s) None Disposition PCU ACC Data Cardiac Status Clinical evaluation leading to the procedure CAD Presntation: Sx unlikely to be ischemic Anginal Classification: No symptoms Heart Failure: Yes, NYHA Class: CCS III Imaging studies past 6 months: Yes Closure Device Percutaneous Entry Location: Brachial Closure Device: none - manual hold Intraprocedure Events Significant Dissection: No Perforation: No <Electronically signed by Tu Teague MD> Signed: 03/20/17 0937 Signed: The status of this report is Signed * If report status is Draft, the document has not been finalized by the responsible provider. MNE: CARD.CATH <AttendingPhy>Theresa Perea MD</AttendingPhy><EDPhy></EDPhy> <FamilyPhy> Jocelyne Cook M.D.</FamilyPhy> <PrimaryPhy>Jocelyne Cook M.D.</PrimaryPhy> <UnitNumber>[id number]</UnitNumber><VisitNumber>[id number]</VisitNumber>< PatientName>CHARLES TORRES</PatientName><DateOfBirth>1950</DateOfBirth><Age> 66</Age><Location>C.MED</Location><ServiceDate></ServiceDate><CC>Jocelyne Cook M.D. Jones, Christopher R., MD</CC><MNE>CARD.CATH</MNE> (Shahana Baker, ANJALI) Assessment and Plan 66 y/o male with a history of COPD, chronic diastolic CHF, Crohn's disease, HLD , HTN, hypothyroidism and insomnia who presents for a direct admission from Dr. Alamo's office with persistent productive cough and worsening shortness of breath. The patient has had several exacerbations of his COPD in the last few months, and during his most recent hospitalization one month ago was started on continuous supplemental oxygen at home (2L). The patient states he has had a productive cough since last month. COPD Exacerbation, hypoxia--stable - Admitted to medical floor. Switched to tele status following cath 03/20. Pt has been NSR with HR in 70s - CXR 03/15 shows emphysema and a possible mild infectious process, possibly bronchiolitis - Repeat CXR 03/18 no significant change - Pulmonology consulted for recurrent COPD exacerbations, appreciate recs: Patient too unstable for bronchoscopy at this time. If he becomes more stable, may be able to do bronchoscopy at later time. Decrease steroids to 40 daily. Consult cardiology for right heart catheterization to work up hypoxia - Duoneb q6h - Albuterol q4h PRN - Continue Levaquin 500 mg PO qd. Day #6 - Decrease steroids to Solu-Medrol 40 mg IV qd - Oxygen by Nasal Cannulae to keep oxygen levels > 90%, currently on baseline 2 L - Continue Symbicort 2 puff inh BID - Continue Guaifenesin Codeine - Continue Spiriva 1 puff QAM - Right heart cath: Normal intracardiac filling pressures. Preserved cardiac output. Normal pulmonary artery pressures and pulmonary vascular resistance. No evidence of hemodynamically significant left to right intracardiac shunt - Cardiology consulted, appreciate recs: Could consider TTE or REJI w/bubble study if concern for shunt persists LLE swelling--stable -Doppler U/S negative for DVT Chronic diastolic CHF--stable -Continue Lasix 40 mg PO qd Crohn's--stable - Continue Imuran 50 mg PO BID - Continue Loperamide HCl 2 mg PO BID Hyperlipidemia - Continue Colestipol 1 gm PO BID HTN--stable -Resume amlodipine 5 mg PO qd Hypothyroidism - Continue Synthroid 88 mcg PO qPM\ -TSH WNL Insomnia - Continue Zolpidem 10mg PO HS Oral Thrush - Nystatin swish and swallow. Day #6 of 10. DVT Prophylaxis - Lovenox Code Status -Level I, FULL RESUSCITATION STATUS (Shahana Baker, ANJALI) Reviewed: Pt Seen/Exam by Me (Theresa Perea MD) History Physician Care Transition Manager Supervision Note: I interviewed and examined the patient. Discussed with ESPINOZA Baker and agree with findings and plan as documented in the note. Any exceptions or clarifications are listed here: RHC today normal. Still with profound hypoxemia on abgs. He relays today that both his sisters recently of breast CA, his mom had breast CA, and the sisters have BRCA2 gene. Also with his brother's daughter with BRCA2 gene. Nobody with liver problems. One sister also had COPD. He denies any breast masses. he has been on Imuran x 2-3 yrs for his Crohn's VSS No breast masses or axillary TOM palpable Mild resp distress with tachypnea with talking RRR no mgr Diffuse wheezing and rhonchi Abd soft NT ND, no groin TOM in left inguinal region Ext Left leg with 2+ pitting edema, RLE with trace pitting edema Pt with persistent SOB and cough, productive cough x several months.With decreased DLCO on PFTs, mild COPD, with hypoxia out of proportion to disease. RHC without evidence of shunt. Cardiology recommended cardiac monitoring, TTE with bubble study. LLE Doppler neg for DVT -Pulm today suggested testing for Alpha-1 AT deficiency and bronchoscopy in the next 1-2 days -NPO after midnight -suggested he have PCP refer him to Genetic Counselor for possible BRCA gene testing -Consider Imuran as cause of interstitial pneumonitis Documented By: Theresa Perea (Theresa Perea MD)
[2017-03-20] MEDS: ENOXAPARIN 30 MG/0.3 ML SYR SC SCH (17:33)
--- NOTE | 2017-03-20 17:44 | Pulmonology Progress Note ---
Pulmonary Progress Note Date of Service Mar 20, 2017. Attending Dr. lFores Subjective Still relying on oxygen. S/p cardiac cath this AM, essentially normal Objective General: More comfortable today Lungs: Scattered posterior crackles CVS: S1S2 reg Ext: no edema Assessment & Plan 66-year-old gentleman admitted with acute on chronic respiratory insufficiency and intermittently productive cough: Emphysema seen on CT scan, has had normal spirometry and lung volumes, but significantly decreased diffusing capacity, at 45% of predicted No evidence of pulmonary vascular disease on right heart cath No evidence of aspiration on video swallow study from 03/05/17 Continue Solumedrol, bronchodilators Guaifenesin Spiriva, Symbicort Abx: Levaquin CT scan reviewed, has moderate emphysema and mild bibasilar parenchymal disease , with airway mucus. Consider performing a bronchoscopy. As a side note, although he has significant smoking history, I will order an alpha-1 antitrypsin level DVT prophylaxis Data Medications: Current Inpatient Medications Medications (Trade) Dose Ordered Sig/Jeffery Route Start Time Stop Time Status Last Admin Dose Admin Acetaminophen (Tylenol Tab) 650 mg Q4H PRN PO 03/15/17 17:30 04/14/17 17:29 Al Hydrox/Mg Hydrox/Simethicone (Maalox Max Susp) 15 ml Q4H PRN PO 03/15/17 17:30 04/14/17 17:29 Magnesium Hydroxide (Milk Of Magnesia Susp) 30 ml Q6H PRN PO 03/15/17 17:30 04/14/17 17:29 Ondansetron HCl (Zofran Inj) 4 mg Q6H PRN IV 03/15/17 17:30 04/14/17 17:29 Enoxaparin Sodium (Lovenox Inj) 30 mg DAILY@1800 SC 03/15/17 18:00 04/14/17 17:59 03/19/17 18:32 30 MG Albuterol/ Ipratropium (Duoneb) 3 ml Q6R INH 03/15/17 21:00 04/14/17 20:59 03/20/17 14:13 3 ML Albuterol Sulfate (Ventolin 0.5% 2.5MG/0.5ML Neb) 2.5 mg Q4R PRN INH 03/15/17 18:00 04/14/17 17:59 Azathioprine (Imuran Tab) 50 mg BID PO 03/15/17 21:00 04/14/17 20:59 03/20/17 09:23 50 MG Colestipol HCl (Colestid Tab) 1 gm BID PO 03/15/17 21:00 04/14/17 20:59 03/20/17 09:23 1 GM Loperamide HCl (Imodium Cap) 2 mg BID PO 03/15/17 21:00 04/14/17 20:59 03/20/17 09:23 2 MG Losartan Potassium (coZAAR TAB) 50 mg DAILY PO 03/16/17 09:00 04/15/17 08:59 03/20/17 09:22 50 MG Tiotropium [place] (Spiriva Handihaler Inhaler) 1 puff QAM INH 03/16/17 09:00 04/15/17 08:59 Future Hold Zolpidem Tartrate (Ambien Tab) 10 mg HS PRN PO 03/15/17 21:00 04/14/17 20:59 03/19/17 23:14 10 MG Nystatin (Mycostatin Susp) 5 ml QID PO 03/15/17 21:00 03/25/17 20:59 03/20/17 14:08 5 ML Budesonide/ Formoterol Fumarate (Symbicort 160/ 4.5 Inh) 1 puffs BID INH 03/15/17 21:00 04/14/17 20:59 03/20/17 09:21 1 PUFFS Levothyroxine Sodium (Synthroid Tab) 88 mcg DAILYBB PO 03/16/17 06:30 04/15/17 06:29 03/18/17 05:52 88 MCG Furosemide (Lasix Tab) 40 mg DAILY PO 03/17/17 09:00 04/16/17 08:59 03/20/17 09:21 40 MG Guaifenesin (Mucinex Contr Rel Tab) 600 mg Q12 PO 03/16/17 21:00 04/15/17 20:59 03/20/17 09:22 600 MG Levofloxacin (Levaquin Tab) 500 mg DAILY@1900 PO 03/16/17 19:00 03/21/17 19:01 03/19/17 18:32 500 MG Benzonatate (Tessalon Perles Cap) 100 mg TID PO 03/17/17 14:00 04/16/17 13:59 03/20/17 14:08 100 MG Menthol (Nice Mary Ann) 1 mary ann PRN PRN PO 03/17/17 11:45 04/16/17 11:44 Codeine Phosphate/ Guaifenesin (Robitussin-AC Sugar Free Syrup) 5 ml Q6HWA PRN PO 03/17/17 18:00 04/14/17 18:14 Methylprednisolone Sodium Succinate 40 mg/Syringe 0.64 ml @ 1.5 mls/min DAILY IV 03/20/17 09:00 04/15/17 12:59 03/20/17 09:21 1.5 MLS/MIN Vital Signs: Date Time Temp Pulse Resp B/P (MAP) Pulse Ox O2 Delivery O2 Flow Rate FiO2 03/20/17 16:00 Nasal Cannula 2.0 03/20/17 15:07 36.5 78 18 128/73 (91) 92 Humidified Oxygen 3.0 03/20/17 14:13 70 18 95 Nasal Cannula 2.0 03/20/17 13:45 91 92 03/20/17 12:35 Nasal Cannula 2.0 03/20/17 11:14 36.5 81 19 131/73 (92) 92 Nasal Cannula 2.0 03/20/17 10:25 Nasal Cannula 2.0 03/20/17 09:00 70 16 150/84 (106) 95 Room Air 03/20/17 07:34 91 18 97 Nasal Cannula 2.0 03/20/17 07:23 36.5 75 19 152/84 (106) 96 Nasal Cannula 2.0 03/20/17 00:10 36.6 84 20 145/80 (101) 92 Room Air 03/20/17 00:00 Nasal Cannula 2.0 03/19/17 19:40 98 18 96 Nasal Cannula 2.0 Laboratory Results: Last 24 Hours Test 03/20/17 06:00 03/20/17 08:38 03/20/17 08:45 03/20/17 08:48 White Blood Count 11.51 K/uL Red Blood Count 3.74 M/uL Hemoglobin 11.8 g/dL Hematocrit 36.3 % Mean Corpuscular Volume 97.1 fL Mean Corpuscular Hemoglobin 31.6 pg Mean Corpuscular Hemoglobin Concent 32.5 g/dl RDW Standard Deviation 57.5 fL RDW Coefficient of Variation 16.4 % Platelet Count 543 K/uL Mean Platelet Volume 10.0 fL Nucleated RBC Absolute Count (auto) 0.13 K/uL Nucleated Red Blood Cells % 1.1 % Sodium Level 139 mmol/L Potassium Level 3.7 mmol/L Chloride Level 104 mmol/L Carbon Dioxide Level 26 mmol/L Anion Gap 9.0 mmol/L Blood Urea Nitrogen 24 mg/dl Creatinine 0.99 mg/dl Est Creatinine Clear Calc Drug Dose 82.9 ml/min Estimated GFR () 91.6 Estimated GFR (Non- 79.0 BUN/Creatinine Ratio 24.3 Random Glucose 94 mg/dl Calcium Level 8.2 mg/dl Vitamin B12 Level 520 pg/mL Folate 14.57 ng/mL Immunoglobulin G 712.0 mg/dL Immunoglobulin A 137.0 mg/dL Immunoglobulin M 58.5 mg/dL Bedside Blood Gas pH (LAB) 7.40 7.41 7.40 Bedside Blood Gas pCO2 (LAB) 38 mmHg 41 mmHg 42 mmHg Bedside Blood Gas pO2 (LAB) 34 mmHg 35 mmHg 35 mmHg Bedside Blood Gas HCO3 (LAB) 23 meq/L 26 meq/L 26 meq/L Bedside Blood Gas Total CO2 24 mEq/l 28 mEq/l 27 mEq/l Bedside Blood Gas Base Excess (LAB) -2.0 meq/L 2.0 meq/L 1.0 meq/L Bedside Blood Gas O2 Saturation 66.0 % 68.0 % 67.0 % Test 03/20/17 08:49 03/20/17 08:55 03/20/17 09:00 03/20/17 09:03 Bedside Blood Gas pH (LAB) 7.38 7.42 7.39 7.40 Bedside Blood Gas pCO2 (LAB) 39 mmHg 41 mmHg 41 mmHg 44 mmHg Bedside Blood Gas pO2 (LAB) 35 mmHg 37 mmHg 37 mmHg < 32 mmHg Bedside Blood Gas HCO3 (LAB) 24 meq/L 27 meq/L 25 meq/L 27 meq/L Bedside Blood Gas Total CO2 25 mEq/l 28 mEq/l 26 mEq/l 28 mEq/l Bedside Blood Gas Base Excess (LAB) -2.0 meq/L 2.0 meq/L 0.0 meq/L 2.0 meq/L Bedside Blood Gas O2 Saturation 67.0 % 72.0 % 71.0 % 60.0 %
[2017-03-20] MEDS: LEVOFLOXACIN 500 MG TAB PO SCH (18:51)
[2017-03-20] MEDS: ZOLPIDEM TARTRATE 10 MG TAB PO PRN (20:58)
[2017-03-21] VITALS (22 sets, daily range): BP systolic 113–151; BP diastolic 69–84; PULSE 68–92; TEMP 35.9–36.5; O2SAT 90–97
[2017-03-21] MEDS: LEVOTHYROXINE 88 MCG TAB PO SCH (05:54)
[2017-03-21] MEDS: ALBUT/IPRATROP 3MG/0.5MG NEB 3 ML VIAL INH SCH ×3 (07:06→19:05)
[2017-03-21 07:15] LABS: HEMATOCRIT 36.7 % (42-52); MEAN CELL VOLUME 97.3 fL (80-100); MEAN CORPUSCULAR HEMOGLOBIN 30.8 pg (25-34); MEAN CORPUSCULAR HGB CONC 31.6 g/dl (32-36); MEAN PLATELET VOLUME 9.8 fL (7.4-10.4); PLATELET COUNT 481 K/uL (130-400); RED BLOOD COUNT 3.77 M/uL (4.7-6.1); WHITE BLOOD COUNT 9.24 K/uL (4.8-10.8)
[2017-03-21 07:54] LABS: CALCIUM 8.4 mg/dl (8.5-10.1); CREATININE 0.92 mg/dl (0.60-1.40); POTASSIUM 3.8 mmol/L (3.5-5.1)
[2017-03-21] MEDS: COLESTIPOL HCL 1 GM TAB PO SCH ×2 (09:00→19:47)
[2017-03-21] MEDS: GUAIFENESIN 600 MG TABCR PO SCH ×2 (09:00→19:48)
[2017-03-21] MEDS: BENZONATATE 100MG CAP PO SCH ×3 (09:00→19:48)
[2017-03-21] MEDS: AZATHIOPRINE 50 MG TAB PO SCH ×2 (09:00→19:47)
[2017-03-21] MEDS: NYSTATIN SUSP 500,000 U/5 ML UDC PO SCH ×3 (09:00→19:48)
[2017-03-21] MEDS: LOPERAMIDE HCL 2 MG CAP PO SCH ×2 (09:00→19:47)
[2017-03-21] MEDS: METHYLPREDNISOLONE IV 40 MG in SYRINGE 0 ML IV SCH (09:49)
[2017-03-21] MEDS: BUDESONIDE/FORMOTEROL FUMARATE 160/4.5 60 PUFFS/INHALER INH SCH ×2 (09:49→19:46)
--- NOTE | 2017-03-21 09:55 | Hospitalist Progress Note ---
Hospitalist Progress Note Date of Service Mar 21, 2017. (Shahana Baker ., [facility]) Subjective Pt evaluation today including: conversation w/ patient, physical exam, chart review, lab review, review of inpatient medication list Pain: None PO Intake: NPO for bronchoscopy Voiding: no voiding problems Patient reports feeling the same. He states that his shortness of breath, dyspnea on exertion, and wheezing have remained the same. His productive cough is somewhat improved. As a result of reduced coughing, his chest pain is also improved. The patient denies fevers, chills, sweats, palpitations, claudication , nausea, vomiting, abdominal pain, dysuria, hematuria, urinary retention, paralysis, weakness, numbness and tingling. Additional Comments: See HPI for pertinent positives and negatives. All other systems reviewed and negative. (Shahana Baker ., ESPINOZA-C) Objective Vital Signs Date Time Temp Pulse Resp B/P (MAP) Pulse Ox O2 Delivery O2 Flow Rate FiO2 03/21/17 08:00 Nasal Cannula 2.0 03/21/17 07:18 36.4 68 18 145/84 (104) 94 Nasal Cannula 2.0 03/21/17 07:06 86 18 96 Nasal Cannula 2.0 03/21/17 04:17 Nasal Cannula 2.0 03/21/17 04:00 Nasal Cannula 2.0 03/21/17 04:00 36.5 78 20 144/84 (104) 95 2.0 03/21/17 00:00 Nasal Cannula 2.0 03/21/17 00:00 36.4 82 20 145/79 (101) 93 2.0 03/20/17 20:15 Nasal Cannula 2.0 03/20/17 19:30 36.4 96 18 133/79 (97) 93 Nasal Cannula 3.0 03/20/17 19:08 104 18 95 Nasal Cannula 2.0 03/20/17 16:00 Nasal Cannula 2.0 03/20/17 15:07 36.5 78 18 128/73 (91) 92 Humidified Oxygen 3.0 03/20/17 14:13 70 18 95 Nasal Cannula 2.0 03/20/17 13:45 91 92 03/20/17 12:35 Nasal Cannula 2.0 03/20/17 11:14 36.5 81 19 131/73 (92) 92 Nasal Cannula 2.0 03/20/17 10:25 Nasal Cannula 2.0 (Shahana Baker ., [facility]) Physical Exam Notes: General Appearance: WD/WN, no apparent distress Eyes: normal inspection, PERRL, EOMI ENT: normal ENT inspection, hearing grossly normal, pharynx normal Neck: supple, no JVD, trachea midline Respiratory/Chest: no respiratory distress, + wheezing, +poor air movement Cardiovascular: regular rate, rhythm, no gallop, no murmur Abdomen: normal bowel sounds, non tender, soft Extremities: non-tender, normal inspection, + swelling (2+ pitting edema LLE, 1 + pitting edema RLE) Neurologic/Psychiatric: alert, normal mood/affect, oriented x 3 Skin: normal color, warm/dry, no rash (Shahana Baker, ANJALI) Laboratory Results Last 24 Hours Test 03/21/17 06:47 03/21/17 09:33 White Blood Count 9.24 K/uL Red Blood Count 3.77 M/uL Hemoglobin 11.6 g/dL Hematocrit 36.7 % Mean Corpuscular Volume 97.3 fL Mean Corpuscular Hemoglobin 30.8 pg Mean Corpuscular Hemoglobin Concent 31.6 g/dl RDW Standard Deviation 57.7 fL RDW Coefficient of Variation 16.6 % Platelet Count 481 K/uL Mean Platelet Volume 9.8 fL Nucleated RBC Absolute Count (auto) 0.11 K/uL Nucleated Red Blood Cells % 1.1 % Sodium Level 138 mmol/L Potassium Level 3.8 mmol/L Chloride Level 103 mmol/L Carbon Dioxide Level 26 mmol/L Anion Gap 9.0 mmol/L Blood Urea Nitrogen 25 mg/dl Creatinine 0.92 mg/dl Est Creatinine Clear Calc Drug Dose 89.2 ml/min Estimated GFR () 100.1 Estimated GFR (Non- 86.4 BUN/Creatinine Ratio 27.0 Random Glucose 81 mg/dl Calcium Level 8.4 mg/dl Bedside Glucose 78 mg/dl (Shahana Baker, [facility]) Assessment and Plan 66 y/o male with a history of COPD, chronic diastolic CHF, Crohn's disease, HLD , HTN, hypothyroidism and insomnia who presents for a direct admission from Dr. Alamo's office with persistent productive cough and worsening shortness of breath. The patient has had several exacerbations of his COPD in the last few months, and during his most recent hospitalization one month ago was started on continuous supplemental oxygen at home (2L). The patient states he has had a productive cough since last month. COPD Exacerbation, hypoxia--stable - Admitted to medical floor. Switched to tele status following cath 03/20. Pt has been NSR with HR in 70s-80s - CXR 03/15 shows emphysema and a possible mild infectious process, possibly bronchiolitis - Repeat CXR 03/18 no significant change - Pulmonology consulted for recurrent COPD exacerbations, appreciate recs: Will check for alpha-1 antitrypsin deficiency. Plan for bronchoscopy in next 1- 2 days. - Pt kept NPO after midnight - Bronchoscopy scheduled for [address] Alamo - Ronaldoneb q6h - Albuterol q4h PRN - Continue Levaquin 500 mg PO qd. Day #7 - Decrease steroids to Solu-Medrol 40 mg IV qd - Oxygen by Nasal Cannulae to keep oxygen levels > 90%, currently on baseline 2 L - Continue Symbicort 2 puff inh BID - Continue Guaifenesin Codeine - Continue Spiriva 1 puff QAM - Right heart cath: Normal intracardiac filling pressures. Preserved cardiac output. Normal pulmonary artery pressures and pulmonary vascular resistance. No evidence of hemodynamically significant left to right intracardiac shunt - Cardiology consulted, appreciate recs: Could consider TTE or REJI w/bubble study if concern for shunt persists - Limited echo with bubble study completed, results pending LLE swelling--stable -Doppler U/S negative for DVT Chronic diastolic CHF--stable -Continue Lasix 40 mg PO qd Crohn's--stable - Continue Imuran 50 mg PO BID. Possibly causing pulmonary fibrosis? - Continue Loperamide HCl 2 mg PO BID Hyperlipidemia - Continue Colestipol 1 gm PO BID HTN--stable -Resume amlodipine 5 mg PO qd Hypothyroidism - Continue Synthroid 88 mcg PO qPM\ -TSH WNL Insomnia - Continue Zolpidem 10mg PO HS Oral Thrush - Nystatin swish and swallow. Day #7 of 10. DVT Prophylaxis - Lovenox Code Status -Level I, FULL RESUSCITATION STATUS (Shahana Baker, PA-C) Reviewed: Pt Seen/Exam by Me (Theresa Perea MD) History Physician Director Intelligence Analysis Programs Supervision Note: I interviewed and examined the patient. Discussed with ESPINOZA Baker and agree with findings and plan as documented in the note. Any exceptions or clarifications are listed here: Had bronchoscopy today which showed significant diffuse mucus secretions throughout bilateral lungs as per my d/w Pulmonology. Pt feels much better and is weaned down to 2LNC after procedure. VSS NAD RRR no mgr Much improved lung exam with a few scattered rhonchi and wheezes but dramatically improved Abd soft NT ND Ext Left leg with 2+ pitting edema, RLE with trace pitting edema Pt with persistent SOB and cough, productive cough x several months.With decreased DLCO on PFTs, mild COPD, with hypoxia out of proportion to disease. RHC without evidence of shunt. Cardiology recommended cardiac monitoring, TTE with bubble study also negative for shunt. LLE Doppler neg for DVT Bronchoscopy with significant mucus secretions diffusely throughout bilateral lungs. On Imuran for Crohn's--> with immunosuppression, consider PCP PNA -Pulm increased Levaquin to 750mg daily dose -f/u on BAL cultures and gram stains -add PCP eval to Path/lab orders--> Pulm will discuss with Pathology -consider treating empirically with Bactrim -f/u Alpha-1 AT level -Consider Imuran as cause of interstitial pneumonitis -suggested he have PCP refer him to Genetic Counselor for possible BRCA gene testing Documented By: Theresa Perea (Theresa Perea MD)
--- NOTE | 2017-03-21 10:19 | Procedure Note ---
Pre-Mod Sedation Assessment General Date of Moderate Sedation: Mar 21, 2017. Vital Signs: Vital Signs Past 12 Hours Date Time Temp Pulse Resp B/P (MAP) Pulse Ox O2 Delivery O2 Flow Rate FiO2 03/21/17 08:00 Nasal Cannula 2.0 03/21/17 07:18 36.4 68 18 145/84 (104) 94 Nasal Cannula 2.0 03/21/17 07:06 86 18 96 Nasal Cannula 2.0 03/21/17 04:17 36.4 87 18 145/84 94 Nasal Cannula 2.0 03/21/17 04:00 Nasal Cannula 2.0 03/21/17 04:00 36.5 78 20 144/84 (104) 95 2.0 03/21/17 00:00 Nasal Cannula 2.0 03/21/17 00:00 36.4 82 20 145/79 (101) 93 2.0 Review Cardiovascular: regular rate, rhythm, no edema, no gallop, no JVD Abdomen: normal bowel sounds, non tender, soft, no organomegaly, no pulsatile mass Lungs: chest non-tender, lungs clear, + rhonchi, + wheezing Airway Class: II Pre-Sedation Airway Assessment Oral Cavity: WNL Able to Visualize Vocal Cords: No Short Thick Neck: No Hx of Sleep Apnea: No Smoking Status: Former Smoker Mallampati Classification: Class II ASA Classification: Class II Procedure Planning Contraindications-for Mod Sed: None Yes Notes The planned sedation has been discussed with the patient and consent obtained. I have identified the patient, determined the appropriateness of sedation and have assessed the patient immediately prior to the procedure. All medicine(s) and interventions are by my order.
--- NOTE | 2017-03-21 10:19 | History & Physical Bridge Note ---
H&P Re-Evaluation Bridge Note: I have examined the patient, reviewed the History & Physical and in the interval since the performance of the History & Physical I have noted the following changes of clinical significance: No changes noted
--- NOTE | 2017-03-21 10:46 | ECHOCARDIOGRAM REPORT ---
*NOTICE TO RECEIVING [employer] This information is strictly Confidential and protected under [place] law. [place] law prohibits you from making any further disclosure of this information unless further disclosure is expressly permitted by the written consent of the person to whom it pertains or is authorized by law. A general authorization for the release of medical or other information is not sufficient for this purpose. Hospital accepts no responsibility if the information is made available to any other person, INCLUDING THE PATIENT. Interpretation Summary * Name: CHARLES TORRES Study Date: 03/21/2017 08:14 AM BP: 145/84 mmHg * Patient Location: [facility]\S\N282\S\2 HR: 68 * : 1950 (M/d/yyyy) Gender: Male Height: 73 in * Age: 66 yrs Ethnicity: [place] Weight: 208 lb * Ordering Physician: Shahana Baker * Referring Physician: Alexander Alamo * Performed By: Carla Toledo RDCS * * Reason For Study: ASSESS FOR SHUNT * BSA: 2.2 m2 * -- Conclusions -- * Limited views were obtained. * Injection of contrast documented no interatrial shunt. Procedure Details * A saline contrast injection was performed to assess for cardiac shunting. * The injection was performed through an intravenous line in the right arm. * The attending nurse who injected the saline contrast was JACKLYN PALOMARES RN. * A total of 20 cc of agitated saline was given. * Limited views were obtained. Atria * Injection of contrast documented no interatrial shunt.
--- NOTE | 2017-03-21 12:06 | Procedure Note ---
Post-Moderate Sedation Plan General Date of Moderate Sedation Mar 21, 2017. Vital Signs: Vital Signs Past 12 Hours Date Time Temp Pulse Resp B/P (MAP) Pulse Ox O2 Delivery O2 Flow Rate FiO2 03/21/17 11:26 72 20 144/83 92 Nasal Cannula 2.0 03/21/17 11:05 36.3 72 20 138/81 (100) 92 Nasal Cannula 2.0 03/21/17 08:00 Nasal Cannula 2.0 03/21/17 07:18 36.4 68 18 145/84 (104) 94 Nasal Cannula 2.0 03/21/17 07:06 86 18 96 Nasal Cannula 2.0 03/21/17 04:17 36.4 87 18 145/84 94 Nasal Cannula 2.0 03/21/17 04:00 Nasal Cannula 2.0 03/21/17 04:00 36.5 78 20 144/84 (104) 95 2.0 Review - Discharge Plan Post Moderate Sedation Plan: On clinical assessment, the patient appears to have tolerated the conscious sedation without complications. Patient is recovering as anticipated. Patient will continue to be monitored by nursing and returned to room 282-2 when he meet criteria.
--- NOTE | 2017-03-21 12:09 | Bronchoscopy Procedure Note ---
Bronchoscopy Procedure Note Procedure: Bronchoscopy, conscious sedation, BAL Lingula Consent: Obtained through the patient placed into the chart Pre-procedural diagnosis: RLL mucus plugging/atelectasis Post-procedural diagnosis: global mucus plugging/atelectasis Start time: 1140 End time: 1157 Total time: 17 minutes Analgesia: 2% liquid lidocaine: Via nebulizer 4% gel lidocaine: Via right naris 2% liquid lidocaine: Via bronchoscopy Sedation: Versed IV: 5mg Fentanyl IV: 100 g Procedure: The Olympus video bronchoscope was used for this procedure and passed down through the right naris Right naris/posterior naris/posterior oropharynx: diffuse mucus secretions, Anatomically within normal limits Glottis: Anatomically within normal limits Vocal cords: Proper abduction and abduction, anatomically within normal limits Subglottis/trachea/Beth: Anatomically within normal limits Right bronchial tree: Right mainstem bronchus: Anatomically within normal limits Right upper lobe: Anatomically within normal limits Bronchus intermedius: Anatomically within normal limits Right middle lobe: Anatomically within normal limits Right lower lobe: Anatomically within normal limits Findings: diffuse mucus secretions throughout the total bronchial tree Left bronchial tree: Left mainstem bronchus: Anatomically within normal limits Left upper lobe: Anatomically within normal limits Lingula: Anatomically within normal limits Left lower lobe: Anatomically within normal limits Findings: diffuse mucus secretions throughout the total bronchial tree Bronchial alveolar lavage: Lingula EBL: none Complications: None Follow-up: inpatient room 282-2
[2017-03-21] MEDS ORDERED: NURSING VERBAL MED ORDER ONE (12:15)
[2017-03-21] MEDS ORDERED: MIDAZOLAM HCL 5 MG/ML 1 ML VIAL IV SCH (12:15)
[2017-03-21] MEDS ORDERED: MIDAZOLAM HCL 5 MG/ML 1 ML VIAL IV ONE (15:38)
[2017-03-21] MEDS ORDERED: FENTANYL CITRATE 100 MCG 2 ML CARP IV ONE (15:38)
[2017-03-21] MEDS ORDERED: LIDOCAINE HCL 2% LOCAL 50ML VIAL INFIL ONE (15:38)
[2017-03-21] MEDS: LOSARTAN POTASSIUM 50 MG TAB PO SCH (17:02)
[2017-03-21] MEDS: FUROSEMIDE 40 MG TAB PO SCH (17:03)
[2017-03-21] MEDS: ENOXAPARIN 30 MG/0.3 ML SYR SC SCH (17:04)
[2017-03-21] MEDS ORDERED: LEVOFLOXACIN / D5W 750 MG in PREMIXED IN D5W 150 ML IV SCH (19:00)
[2017-03-21] MEDS: DORNASE ALFA (2500U) 2.5MG/2.5ML INH SCH (19:32)
[2017-03-21] MEDS: ZOLPIDEM TARTRATE 10 MG TAB PO PRN (19:46)
[2017-03-22] VITALS (12 sets, daily range): BP systolic 106–118; BP diastolic 47–77; PULSE 79–103; TEMP 36.4–36.9; O2SAT 91–96
[2017-03-22] MEDS: ALBUT/IPRATROP 3MG/0.5MG NEB 3 ML VIAL INH SCH ×4 (02:27→19:21)
[2017-03-22] MEDS: LEVOTHYROXINE 88 MCG TAB PO SCH (06:01)
[2017-03-22 07:02] LABS: MEAN CELL VOLUME 96.4 fL (80-100); MEAN CORPUSCULAR HGB CONC 32.1 g/dl (32-36); MEAN PLATELET VOLUME 9.9 fL (7.4-10.4); PLATELET COUNT 481 K/uL (130-400); RED BLOOD COUNT 3.94 M/uL (4.7-6.1); WHITE BLOOD COUNT 10.27 K/uL (4.8-10.8)
[2017-03-22] MEDS: DORNASE ALFA (2500U) 2.5MG/2.5ML INH SCH ×2 (07:20→19:21)
[2017-03-22 07:24] LABS: BUN/CREATININE RATIO 19.9 (10-20); CREATININE 0.91 mg/dl (0.60-1.40); POTASSIUM 3.7 mmol/L (3.5-5.1)
[2017-03-22] MEDS: LOPERAMIDE HCL 2 MG CAP PO SCH ×2 (07:36→20:20)
[2017-03-22] MEDS: BUDESONIDE/FORMOTEROL FUMARATE 160/4.5 60 PUFFS/INHALER INH SCH ×2 (07:36→20:19)
[2017-03-22] MEDS: GUAIFENESIN 600 MG TABCR PO SCH ×2 (07:36→20:20)
[2017-03-22] MEDS: NYSTATIN SUSP 500,000 U/5 ML UDC PO SCH ×4 (07:36→21:44)
[2017-03-22] MEDS: FUROSEMIDE 40 MG TAB PO SCH (07:36)
[2017-03-22] MEDS: COLESTIPOL HCL 1 GM TAB PO SCH ×2 (07:36→20:20)
[2017-03-22] MEDS: LOSARTAN POTASSIUM 50 MG TAB PO SCH (07:37)
[2017-03-22] MEDS: BENZONATATE 100MG CAP PO SCH ×3 (07:37→21:44)
[2017-03-22] MEDS: AZATHIOPRINE 50 MG TAB PO SCH ×2 (07:37→20:20)
--- NOTE | 2017-03-22 10:07 | Hospitalist Progress Note ---
Hospitalist Progress Note Date of Service Mar 22, 2017. (Shahana Baker ., [facility]) Subjective Pt evaluation today including: conversation w/ patient, physical exam, chart review, lab review, review of studies, conversation w/ practice management consultant (spoke with Dr. Alamo), review of inpatient medication list Pain: None PO Intake: Tolerating PO diet Voiding: no voiding problems Patient reports feeling better after the bronchoscopy. He states that his cough , wheezing, and shortness of breath are improved. His chest pain associated with coughing is also improved. The patient denies fevers, chills, sweats, palpitations, claudication, nausea, vomiting, abdominal pain, dysuria, hematuria , urinary retention, paralysis, weakness, numbness and tingling. Additional Comments: See HPI for pertinent positives and negatives. All other systems reviewed and negative. (Shahana Baker ., [facility]) Objective Vital Signs Date Time Temp Pulse Resp B/P (MAP) Pulse Ox O2 Delivery O2 Flow Rate FiO2 03/22/17 08:00 Nasal Cannula 03/22/17 07:55 36.4 81 16 108/67 (81) 93 2.0 03/22/17 07:20 90 16 93 Nasal Cannula 2.0 03/22/17 04:00 Nasal Cannula 03/22/17 03:54 36.9 79 18 118/77 (91) 93 Nasal Cannula 4.0 03/22/17 00:00 Nasal Cannula 03/21/17 23:38 36.4 91 18 120/69 (86) 92 Nasal Cannula 2.0 03/21/17 20:16 36.4 88 20 125/69 (87) 94 Nasal Cannula 2.0 03/21/17 20:00 Nasal Cannula 03/21/17 19:05 74 18 95 Nasal Cannula 2.0 03/21/17 16:10 Nasal Cannula 03/21/17 15:05 36.3 75 18 133/79 (97) 95 5.0 03/21/17 14:48 75 18 97 Nasal Cannula 6.0 03/21/17 13:42 Mask 03/21/17 12:52 Nasal Cannula 6.0 03/21/17 12:50 35.9 72 20 142/79 (100) 91 Nasal Cannula 6.0 03/21/17 12:30 85 17 124/73 91 Nasal Cannula 6.0 03/21/17 12:15 92 19 113/83 90 Nasal Cannula 6.0 03/21/17 12:05 71 17 120/70 92 Nasal Cannula 6.0 03/21/17 12:00 75 16 126/72 92 Mask 6.0 03/21/17 11:55 75 22 121/75 92 Mask 15.0 03/21/17 11:50 88 24 138/79 92 Mask 15.0 03/21/17 11:45 89 19 141/80 92 Mask 15.0 03/21/17 11:40 80 22 144/82 92 Mask 15.0 03/21/17 11:35 74 21 151/82 92 Mask 6.0 03/21/17 11:26 72 20 144/83 92 Nasal Cannula 2.0 03/21/17 11:05 36.3 72 20 138/81 (100) 92 Nasal Cannula 2.0 (Shahana Baker ., PA-C) Physical Exam Notes: General Appearance: WD/WN, no apparent distress Eyes: normal inspection, PERRL, EOMI ENT: normal ENT inspection, hearing grossly normal, pharynx normal Neck: supple, no JVD, trachea midline Respiratory/Chest: no respiratory distress, + wheezing much improved, + better air movement today Cardiovascular: regular rate, rhythm, no gallop, no murmur Abdomen: normal bowel sounds, non tender, soft Extremities: non-tender, normal inspection, + swelling (2+ pitting edema LLE) Neurologic/Psychiatric: alert, normal mood/affect, oriented x 3 Skin: normal color, warm/dry, no rash (Shahana Baker ., PA-C) Laboratory Results Last 24 Hours Test 03/22/17 06:10 White Blood Count 10.27 K/uL Red Blood Count 3.94 M/uL Hemoglobin 12.2 g/dL Hematocrit 38.0 % Mean Corpuscular Volume 96.4 fL Mean Corpuscular Hemoglobin 31.0 pg Mean Corpuscular Hemoglobin Concent 32.1 g/dl RDW Standard Deviation 55.8 fL RDW Coefficient of Variation 16.2 % Platelet Count 481 K/uL Mean Platelet Volume 9.9 fL Nucleated RBC Absolute Count (auto) 0.05 K/uL Nucleated Red Blood Cells % 0.5 % Sodium Level 137 mmol/L Potassium Level 3.7 mmol/L Chloride Level 102 mmol/L Carbon Dioxide Level 28 mmol/L Anion Gap 7.0 mmol/L Blood Urea Nitrogen 18 mg/dl Creatinine 0.91 mg/dl Est Creatinine Clear Calc Drug Dose 90.2 ml/min Estimated GFR () 101.4 Estimated GFR (Non- 87.5 BUN/Creatinine Ratio 19.9 Random Glucose 84 mg/dl Calcium Level 8.0 mg/dl (Shahana Baker, ANJALI) [place] [address] Procedure Note Patient Name: CHARLES TORRES Admit Date: 03/15/17 [facility] Rec: [id number] Att Phy: Theresa Perea MD Acct ID: [id number] Silvana Phy: Jocelyne Cook M.D. Date: 1950 Fam Phy: Jocelyne Cook M.D. Age: 66 Location: [facility] Sex: M Room/Bed: [facility] CC: Jocelyne Cook M.D. Waddington, Thomas W., MD *NOTICE TO RECEIVING CONSTITUTION PARTY/AGENCY This information is strictly Confidential and protected under [place] law. [place] law prohibits you from making any further disclosure of this information unless further disclosure is expressly permitted by the written consent of the person to whom it pertains or is authorized by law. A general authorization for the release of medical or other information is not sufficient for this purpose. Hospital accepts no responsibility if the information is made available to any other person, INCLUDING THE PATIENT. Bronchoscopy Procedure Note Procedure: Bronchoscopy, conscious sedation, BAL Lingula Consent: Obtained through the patient placed into the chart Pre-procedural diagnosis: RLL mucus plugging/atelectasis Post-procedural diagnosis: global mucus plugging/atelectasis Start time: 1140 End time: 1157 Total time: 17 minutes Analgesia: 2% liquid lidocaine: Via nebulizer 4% gel lidocaine: Via right naris 2% liquid lidocaine: Via bronchoscopy Sedation: Versed IV: 5mg Fentanyl IV: 100 g Procedure: The [employer] video bronchoscope was used for this procedure and passed down through the right naris Right naris/posterior naris/posterior oropharynx: diffuse mucus secretions, Anatomically within normal limits Glottis: Anatomically within normal limits Vocal cords: Proper abduction and abduction, anatomically within normal limits Subglottis/trachea/Beth: Anatomically within normal limits Right bronchial tree: Right mainstem bronchus: Anatomically within normal limits Right upper lobe: Anatomically within normal limits Bronchus intermedius: Anatomically within normal limits Right middle lobe: Anatomically within normal limits Right lower lobe: Anatomically within normal limits Findings: diffuse mucus secretions throughout the total bronchial tree Left bronchial tree: Left mainstem bronchus: Anatomically within normal limits Left upper lobe: Anatomically within normal limits Lingula: Anatomically within normal limits Left lower lobe: Anatomically within normal limits Findings: diffuse mucus secretions throughout the total bronchial tree Bronchial alveolar lavage: Lingula EBL: none Complications: None Follow-up: inpatient room 282-2 <Electronically signed by Alexander Alamo MD> Signed: 03/21/17 8479 Signed: The status of this report is Signed * If report status is Draft, the document has not been finalized by the responsible provider. MNE: Procedure Note <AttendingPhy>Theresa Perea MD</AttendingPhy><EDPhy></EDPhy> <FamilyPhy> Jocelyne Cook M.D.</FamilyPhy> <PrimaryPhy>Jocelyne Cook M.D.</PrimaryPhy> <UnitNumber>[id number]</UnitNumber><VisitNumber>[id number]</VisitNumber>< PatientName>CHARLES TORRES</PatientName><DateOfBirth>1950</DateOfBirth><Age> 66</Age><Location>[facility]</Location><ServiceDate></ServiceDate><CC>Jocelyne Cook M.D. Waddington, Thomas W., MD</CC><MNE>[facility]</MNE> (Shahana Baker PA-C) Assessment and Plan 66 y/o male with a history of COPD, chronic diastolic CHF, Crohn's disease, HLD , HTN, hypothyroidism and insomnia who presents for a direct admission from Dr. Alamo's office with persistent productive cough and worsening shortness of breath. The patient has had several exacerbations of his COPD in the last few months, and during his most recent hospitalization one month ago was started on continuous supplemental oxygen at home (2L). The patient states he has had a productive cough since last month. COPD Exacerbation, hypoxia--improving - Admitted to medical floor. Switched to tele status following cath 03/20. Pt has been NSR with HR in 60s-80s - CXR 03/15 shows emphysema and a possible mild infectious process, possibly bronchiolitis - Repeat CXR 03/18 no significant change - Pulmonology consulted for recurrent COPD exacerbations, appreciate recs: Will check for alpha-1 antitrypsin deficiency. Plan for bronchoscopy in next 1- 2 days. - Bronchoscopy on 03/[address] Alamo showed diffuse mucus secretions - Bronchial washings cultures and staining pending - Duoneb q6h - Albuterol q4h PRN - D/C Levaquin - D/C Solu-Medrol - Prednisone 60 mg PO qd - Oxygen by Nasal Cannulae to keep oxygen levels > 90%, currently on baseline 2 L - Continue Symbicort 2 puff inh BID - Continue Guaifenesin Codeine - Continue Spiriva 1 puff QAM - Right heart cath: Normal intracardiac filling pressures. Preserved cardiac output. Normal pulmonary artery pressures and pulmonary vascular resistance. No evidence of hemodynamically significant left to right intracardiac shunt - Cardiology consulted, appreciate recs: Could consider TTE or REJI w/bubble study if concern for shunt persists - Limited echo with bubble study shows no shunt LLE swelling--stable -Doppler U/S negative for DVT Chronic diastolic CHF--stable -Continue Lasix 40 mg PO qd Crohn's--stable - Continue Imuran 50 mg PO BID. Possibly causing pulmonary fibrosis or pneumonitis? - Continue Loperamide HCl 2 mg PO BID Hyperlipidemia - Continue Colestipol 1 gm PO BID HTN--stable -Resume amlodipine 5 mg PO qd Hypothyroidism - Continue Synthroid 88 mcg PO qPM\ -TSH WNL Insomnia - Continue Zolpidem 10mg PO HS Oral Thrush - Nystatin swish and swallow. Day #8 of 10. DVT Prophylaxis - Lovenox Code Status -Level I, FULL RESUSCITATION STATUS (Shahana Baker ., ANJALI) Reviewed: Pt Seen/Exam by Me (Theresa Perea MD) History Physician Boom Operator Supervision Note: I interviewed and examined the patient. Discussed with ESPINOZA Baker and agree with findings and plan as documented in the note. Any exceptions or clarifications are listed here: Is doing remarkably better since bronchoscopy. Is now weaned off O2 and ambulated without O2 and did not drop his sats. Much improved cough. No other concerns except mild tinnitus right ear, no hearing loss or hear pain VSS NAD RRR no mgr A few rhonchi at left base, otherwise CTAB Abd soft NT ND Ext Left leg with trace+ pitting edema, RLE with no edema Pt with persistent SOB and cough, productive cough x several months.With decreased DLCO on PFTs, mild COPD, with hypoxia out of proportion to disease. RHC without evidence of shunt. Cardiology recommended cardiac monitoring, TTE with bubble study also negative for shunt. LLE Doppler neg for DVT Bronchoscopy with significant mucus secretions diffusely throughout bilateral lungs. On Imuran for Crohn's--> with immunosuppression, consider PCP PNA Considerable improvement since bronchoscopy--> now weaned off O2 even with ambulation. -Pulm increased Levaquin to 750mg daily dose but has completed 7 days--> dc abx as per Pulm recommendation -f/u on BAL cultures and gram stains-neg fungal smear so far -follow PCP on lavage -f/u Alpha-1 AT level is normal -suggested he have PCP refer him to Genetic Counselor for possible BRCA gene testing Documented By: Theresa Perea (Theresa Perea MD)
[2017-03-22] MEDS ORDERED: FENTANYL CITRATE INJ 50 MCG/1 ML 2 ML VIAL IV ONE (12:15)
--- NOTE | 2017-03-22 13:58 | PULMONARY PROGRESS NOTE ---
DATE: 03/22/2017 DATE: 03/22/2017. TIME: 1:40 p.m. SUBJECTIVE: The patient had bronchoscopy yesterday. He feels quite a bit better since the procedure. His cough is less. He has not expectorated any sputum on his own. He feels much less congested in the chest. OBJECTIVE: GENERAL: The patient was comfortable at rest. He was sleeping heavily when I came in, but he awakened without difficulty and he was oriented. EARS, NOSE, THROAT: Exam is unremarkable. HEART: Heart rate was 84 per minute. VITAL SIGNS: Blood pressure 110/68. Lung [place] revealed just a few rhonchi posteriorly. There has been significant improvement compared with a few days ago. His respiratory rate is 18 breaths per minute. Oxygen saturation was 94% on 2 liters taken by myself at the time of this examination. EXTREMITIES: Showed no cyanosis or clubbing. LABORATORY DATA: White count today is 10.27. Hemoglobin 12.2. Platelets were 481,000. Electrolytes show sodium 137, potassium 3.7, chloride 102, bicarbonate 28. BUN was 18 with a creatinine of 0.91. Fungal smear from bronchoscopy was negative. The Gram stain from bronchial washings showed moderate WBCs, but no organisms. AFB smear is still pending. IMPRESSIONS: 1. Chronic obstructive pulmonary disease with exacerbation. 2. Tussive syncope. 3. Emphysema. 4. Obstructive sleep apnea -- untreated. 5. Recent bilateral pneumonia. RECOMMENDATIONS: The patient is clinically improved. He does need to be ambulated. If he continues to improve he likely would be ready for discharge tomorrow.
[2017-03-22] MEDS: ENOXAPARIN 30 MG/0.3 ML SYR SC SCH (16:21)
[2017-03-22] MEDS ORDERED: LEVOFLOXACIN / D5W 750 MG in PREMIXED IN D5W 150 ML IV SCH (18:00)
[2017-03-22] MEDS: ZOLPIDEM TARTRATE 10 MG TAB PO PRN (20:20)
[2017-03-23] MEDS: ALBUT/IPRATROP 3MG/0.5MG NEB 3 ML VIAL INH SCH ×3 (01:53→14:27)
[2017-03-23] MEDS: LEVOTHYROXINE 88 MCG TAB PO SCH (06:07)
[2017-03-23 07:11] VITALS: BP 119/74; PULSE 81; TEMP 36.5; O2SAT 91
[2017-03-23 07:28] VITALS: PULSE 88; O2SAT 91
[2017-03-23] MEDS: DORNASE ALFA (2500U) 2.5MG/2.5ML INH SCH (07:28)
[2017-03-23] MEDS: BUDESONIDE/FORMOTEROL FUMARATE 160/4.5 60 PUFFS/INHALER INH SCH (08:21)
[2017-03-23] MEDS: GUAIFENESIN 600 MG TABCR PO SCH (08:22)
[2017-03-23] MEDS: COLESTIPOL HCL 1 GM TAB PO SCH (08:22)
[2017-03-23] MEDS: LOSARTAN POTASSIUM 50 MG TAB PO SCH (08:23)
[2017-03-23] MEDS: FUROSEMIDE 40 MG TAB PO SCH (08:23)
[2017-03-23] MEDS: AZATHIOPRINE 50 MG TAB PO SCH (08:23)
[2017-03-23] MEDS: LOPERAMIDE HCL 2 MG CAP PO SCH (08:23)
[2017-03-23] MEDS: NYSTATIN SUSP 500,000 U/5 ML UDC PO SCH ×2 (08:24→12:23)
[2017-03-23] MEDS: BENZONATATE 100MG CAP PO SCH ×2 (08:24→13:58)
--- NOTE | 2017-03-23 13:58 | Consultant Recommendations ---
Truck Driver Helper Recommendations Date of Service Mar 23, 2017. Truck Driver Helper Recommendations He will be followed up in the office on 04-05-17 at 1:30 pm at the [facility]. He is to continue the Pulmozyme and an order was sent to [facility]. He is to continue his Duoneb. Our office is ordering a Vibration Vest for him to use at home.
--- NOTE | 2017-03-23 14:22 | PROGRESS NOTE ---
DATE: 03/23/2017 DATE: 03/23/2017. PROBLEM LIST: Includes: 1. Chronic obstructive pulmonary disease with exacerbation. 2. Mucus plugging with significant mucous retention. 3. Possible bronchiectasis. 4. Recent bilateral pneumonia. 5. Obstructive sleep apnea. SUBJECTIVE: The patient reports that he underwent bronchoscopy on 03/21/[address] Alamo. He is feeling significantly improved. He states that his oxygen saturation is staying up above 90 without oxygen on when he is ambulating. He has very little cough at this time, very little congestion. He feels that his breathing is doing much better. He still has a little bit of wheezing at times, still gets a little bit of mucus up, but not nearly as bad as it was previously. No chest pain. No chest pressure. No chest heaviness, no tightness. No abdominal pain, no nausea or vomiting, no indigestion or heartburn, difficulty with his bowels. No difficulty voiding. No swelling of his extremities. OBJECTIVE: GENERAL: The patient is a 66-year-old male sitting at bedside, his is in the room when I was there. He is alert and oriented x3. Mood is good. Affect is good. VITAL SIGNS: Temp 36.5, pulse 81, respirations 22, blood pressure is 119/74, pulse ox 91-95% on room air. HEAD, EYES, EARS, NOSE, AND THROAT: Normocephalic, atraumatic. Pupils equal, round and reactive to light and accommodation. Extraocular movements are intact. [place] moist gingival and buccal mucosa. NECK: Supple. No mass. No adenopathy. No bruit. CHEST: The patient has a few rhonchi posteriorly. No wheeze or rales noted. Good air movement throughout. Much better air movement than when I auscultated him in the office on 03/15/2017. CARDIOVASCULAR: Regular rate and rhythm. No murmurs, gallops or rubs. ABDOMEN: Bowel sounds are present. Abdomen soft, nontender. No guarding, rigidity or organomegaly. EXTREMITIES: No erythema or edema. LABORATORY DATA: Preliminary bronch washing showing gram negative bacilli. Cultures still pending. AFB is negative. His AFB preliminary is negative. Fungal culture is negative. Pathology is unremarkable. No new imaging data. IMPRESSION: This is a 66-year-old male who was admitted to the hospital with severe shortness of breath, COPD exacerbation and underwent bronchoscopy on 03/21/2017 is doing much better. Did have significant thick mucus with mucus plug removed/lavaged out. The patient is much improved at this point. I feel the patient can be discharged home. This was already discussed with Dr. Perea from the hospitalist service. I would like for the patient to have a follow-up appointment in the office in approximately 2 weeks. I would like for him to have a vibration vest. Would like the patient to continue on Pulmozyme as an outpatient. Continue Symbicort and DuoNeb as well. I will call Pulmozyme in to [facility] which is where he gets his nebulizer medication from. I would like for him to have a vibration vest as well. Our office will order this. Will follow in outpatient setting.
[2017-03-23] MEDS ORDERED: GFNSR600 PO (14:40)
[2017-03-23] MEDS ORDERED: PLMIH INH (14:40)
[2017-03-23] MEDS ORDERED: PRED10TA PO (14:40)
[2017-03-23] MEDS ORDERED: BENZ100C7 PO (14:40)
[2017-03-23] MEDS ORDERED: LEVO1TAB35 PO (14:41)
--- NOTE | 2017-03-23 14:48 | Discharge Instructions ---
Discharge Instructions Date of Service Mar 23, 2017. Admission Reason for Admission: Copd, Hypoxia Discharge Discharge Diagnosis / Problem: COPD exacerbation, Pneumonia Discharge Goals Goal(s): Improve disease control, Diagnostic testing, Therapeutic intervention Activity Recommendations Activity Limitations: as noted below Lifting Limitations: gradually increase as tolerated Exercise/Sports Limitations: as tolerated Shower/Bathe: no limitations . Instructions / Follow-Up Instructions / Follow-Up You were admitted for worsening shortness of breath, cough, COPD exacerbation, and low oxygen levels. You had a right-sided heart catheterization that was normal. You then had a bronchoscopy performed to flush a lot of mucus out of your lungs and take samples. At the time of discharge, your lung culture was growing out a bacteria that was only partially identified. You were restarted on antibiotics at the time of discharge and should continue this for 1 week. Please call [facility], on Sunday to see about the final result of your culture to ensure the antibiotic you are on is correct. Please finish out a course of prednisone as well. You should wear your oxygen only at night or as needed during the daytime. Your amlodipine blood pressure med was stopped as this may have contributed to your leg swelling and your blood pressures were normal without taking it. Please follow up with [facility] as scheduled in 2 weeks. Please also follow up with your PCP within 1 week. Current Hospital Diet Patient's current hospital diet: Regular Diet, Low Sodium Diet (2gm Na), N/A Discharge Diet Recommended Diet: Low Sodium Diet (2gm Na) Procedures Procedures Performed: Right heart catheterization Bronchoscopy Lower extremity ultrasound Chest xrays Pending Studies Studies pending at discharge: yes List of pending studies: Bronchoalveolar lavage culture Mycobacterial culture Medical Emergencies . Who to Call and When: Medical Emergencies: If at any time you feel your situation is an emergency, please call 911 immediately. . Non-Emergent Contact Non-Emergency issues call your: Primary Care Provider, Door Attendant Call Non-Emergent contact if: you have a fever, you have any medication questions worsening shortness of breath or increased cough or production of sputum. . . "Provider Documentation" section prepared by Theresa Perea. . Elevator Operator Service Recommendations Elevator Operator Service Recommendations: He will be followed up in the office on 04-05-17 at 1:30 pm at the [facility]. He is to continue the Pulmozyme and an order was sent to [facility]. He is to continue his Duoneb. Our office is ordering a Vibration Vest for him to use at home. VTE Core Measure Inpt VTE Proph given/why not?: Enoxaparin (Lovenox)SQ
[2017-03-23 14:58] VITALS: BP 119/74; PULSE 88; TEMP 36.5; O2SAT 91
--- NOTE | 2017-03-23 22:23 | Discharge Summary ---
Discharge Summary Date of Service Mar 23, 2017. Discharge Summary Admission Date: Mar 15, 2017 at 16:05 Discharge Date: Mar 23, 2017 Discharge Disposition: Home Principal Diagnosis: COPD exacerbation, Acute on chronic hypoxemic respiratory failure Procedures: Right heart catheterization Bronchoscopy Chest xrays Lower extremity Doppler left lower ext Consultations: Pulmonology Medication Reconciliation New Medications: Levofloxacin (Levaquin) 750 Mg Tab 750 MG PO DAILY for 7 Days, #7 TAB Prednisone Tab (Prednisone) 10 Mg Tab 40 MG PO DAILY, #35 TAB x 2 days then decrease by 5mg (1/2 tab) every 2 days until pills finished Benzonatate (Benzonatate) 100 Mg Cap 100 MG PO TID PRN for Cough for 7 Days, #21 CAP Dornase Robin (Pulmozyme) 2.5 Ml Inha 2.5 ML INH BIDR for 30 Days, INHA Already called into [facility] for you Guaifenesin Ext Rel (Mucinex Ext Rel) 600 Mg Tabcr 600 MG PO Q12 for 30 Days, #60 TAB OTC Continued Medications: Albuterol Sulf (Proventil 0.083% 2.5MG/3ML) 2.5 Mg/3 Ml Nebu 2.5 MG INH Q4 PRN for Shortness of Breath, EA Albuterol Sulfate (Proair Respiclick) 108 Mcg/Act Aer 2 PUFFS INH QID PRN for SOB/Wheezing Azathioprine (Imuran) 50 Mg Tab 50 MG PO BID, TAB Budesonide/Formoterol Fumarate (Symbicort 160/4.5 Inhaler) 120 Puffs/ Aero 2 PUFF INH BID, #30 Colestipol Hcl (Colestipol Hcl) 1 Gm Tab 1 GM PO BID Cyanocobalamin (Vitamin B-12) 100 Mcg Tab 100 MCG PO DAILY, TAB Furosemide (Lasix) 40 Mg Tab 40 MG PO DAILY, TAB Ipratropium-Albuterol (Duoneb) 3 Ml Nebu 1 TREATMENT INH TID, INHA Levothyroxine Sodium (Synthroid) 88 Mcg Tab 88 MCG PO QPM, #90 Loperamide HCl (Loperamide HCl) 2 Mg Cap 2 MG PO BID Losartan Potassium (Losartan Potassium) 50 Mg Tab 50 MG PO DAILY Multivitamin (Multivitamin) Tab 1 TAB PO DAILY, TAB Tiotropium [place] (Spiriva Handihaler) 5 Puff/90 Mcg Aerp 1 PUFF INH QAM Zolpidem Tartrate (Ambien) 10 Mg Tab 10 MG PO HS, TAB Discontinued Medications: Amlodipine (Norvasc) 5 Mg Tab 5 MG PO DAILY, TAB Guaifenesin-Codeine (Codeine/Guaifenesin 100-10 mg/5Ml) 1 Luz Maria Luz Maria 5 ML PO HS PRN for Cough, #50 ML 2 Refills Referrals At Discharge Follow up Referrals: Communications Department Chair Referral - Within 1-2 Weeks @ [facility] Provider Group with Alexander Alamo MD Discharge Exam Doing much better, some mild cough, much improved SOB. No other concerns Review of Systems: Constitutional: No fever Eyes: No problem reported ENT: No problem reported Respiratory: + cough, + shortness of breath (mild) Cardiovascular: No chest pain Abdomen: No problem reported Musculoskeletal: No problem reported Genitourinary - Male: No problem reported Neurologic: No problem reported Psychiatric: No problem reported Endocrine: No problem reported Hematologic / Lymphatic: No problem reported Integumentary: No problem reported Physical Exam: General Appearance: WD/WN, no apparent distress Eyes: normal inspection, sclerae normal ENT: hearing grossly normal Neck: trachea midline Respiratory/Chest: no respiratory distress, no accessory muscle use, + rhonchi (mild at left base), + wheezing (just focally at left base and left middle lung field) Cardiovascular: regular rate, rhythm, no gallop, no murmur, + pertinent finding (trace residual pitting edema left ankle) Abdomen / GI: normal bowel sounds, non tender, soft, no organomegaly Extremities: no calf tenderness, normal range of motion Neurologic/Psychiatric: alert, normal mood/affect, oriented x 3 Skin: normal color, warm/dry, no rash Hospital Course This patient is a 66 y/o male with a history of COPD, chronic diastolic CHF, Crohn's disease on immunosuppressive therapy, HLD, HTN, hypothyroidism, and insomnia who presents for a direct admission from Dr. Alamo's office with persistent productive cough and worsening shortness of breath. The patient has had several exacerbations of his COPD in the last few months, and during his most recent hospitalization one month ago was started on continuous supplemental oxygen at home (2L). The patient states he has had a productive cough since last month. COPD Exacerbation, Acute on chronic hypoxemic respiratory failure -was quite severe for many days and then had remarkable improvement after bronchoscopy with lavage and removal of diffuse mucus plugging - CXR 03/15 shows emphysema and a possible mild infectious process, possibly bronchiolitis - Repeat CXR 03/18 no significant change. - Pulmonology consulted for recurrent COPD exacerbations, appreciate recs. He had a right heart catheterization to rule out shunt as cause of his decreased DLCO and severe hypoxia. This was normal as was a TTE with bubble study was negative for shunt. His alpha-1 antitrypsin level was normal. As he was not improving at all on IV steroids and Levaquin, he was recommended to have a bronchoscopy. After bronchoscopy, his BAL was growing out GNRs on day of discharge and planned for continuation of Levaquin for yet another week. Pt was instructed to call Pulm office on Sunday to inquire about ID and sensitivity of the BAL culture. AFB smear negative. Fungal and PCP organisms not present on pathology, no malignant cells seen either. He will taper down his steroids and continue his Duonebs, Symbicort, Spiriva, Mucinex; Pulmozyme nebs started. He will be prescribed a vibration vest at home and have close follow up with Pulmonary as an outpatient. At the time of discharge, he was completely weaned off oxygen during the daytime , but was recommended to wear it nocturnally. Right greater than LLE swelling-- -Doppler U/S negative for DVT, improved after stopping amlodipine and continuing lasix -permanently discontinue amlodipine. Blood pressures were normal despite being off of it. Chronic diastolic CHF--stable -Continue Lasix 40 mg PO qd Crohn's--stable - Continue Imuran 50 mg PO BID. - Continue Loperamide HCl 2 mg PO BID Hyperlipidemia - Continue Colestipol 1 gm PO BID HTN--stable -continue losartan and lasix Hypothyroidism - Continue Synthroid 88 mcg PO qPM -TSH WNL Insomnia - Continue Zolpidem 10mg PO HS Oral Thrush - treated with Nystatin swish and swallow Strong +FH of Breast CA and confirmed 2 sisters and his brother's daughter ( Niece) all with +BRCA2 gene. Breast exam normal here but if he were to have BRCA2 gene, he is at risk for breast as well as other cancers. -suggested he have PCP refer him to Genetic Counselor for possible BRCA gene testing Stable for discharge to home Total Time Spent: Greater than 30 minutes This includes examination of the patient, discharge planning, medication reconciliation, and communication with other providers. Discharge Instructions Please refer to the electronic Patient Visit Report (Discharge Instructions) for additional information. Follow-Up PCP in 1 week Pulmonology in 2 weeks Additional Copies To Donovan Russo MD; Alexnader Alamo MD
[2017-04-18 13:46] LABS: HERPES SIMPLEX CULT SOURCE OTHER-BAL LINGULA; HERPES SIMPLEX VIRUS CULT NOT ISOLATED (NOT ISOLATED)
[2017-08-10] MEDS ORDERED: HOMETAB PO (12:01)
[2017-08-10] MEDS ORDERED: GUAISYP8 PO (12:01)
[2017-08-10] MEDS ORDERED: TADA10TA PO (12:02)
[2017-08-10] MEDS ORDERED: CHOL1000 PO (12:02)
[2017-08-10] MEDS ORDERED: B-CO1CAP17 PO (12:02)
[2017-08-10] MEDS ORDERED: AMLO-110 PO (12:02)
== END 2017-03-23 15:39 | disposition home health service (06) | DRG 190 ==
LOC: C.MED 16:05
PROVIDERS: ADMIT Internal Medicine; ATTEND Family Medicine
PROC: 4A023N6 Measurement of Cardiac Sampling and Pressure, Right Heart, Percutaneous Approach (ICD-10-PCS; principal; 2017-03-20 07:37)
PROC: 0B998ZX Drainage of Lingula Bronchus, Via Natural or Artificial Opening Endoscopic, Diagnostic (ICD-10-PCS; 2017-03-21)
DX: J44.1 Chronic obstructive pulmonary disease with (acute) exacerbation (principal); J96.21 Acute and chronic respiratory failure with hypoxia; I50.32 Chronic diastolic (congestive) heart failure; K50.90 Crohn's disease, unspecified, without complications; B37.0 Candidal stomatitis; I11.0 Hypertensive heart disease with heart failure; I25.10 Atherosclerotic heart disease of native coronary artery without angina pectoris; J39.8 Other specified diseases of upper respiratory tract; E78.5 Hyperlipidemia, unspecified; E03.9 Hypothyroidism, unspecified; G47.00 Insomnia, unspecified; G47.33 Obstructive sleep apnea (adult) (pediatric); Z87.01 Personal history of pneumonia (recurrent); Z80.9 Family history of malignant neoplasm, unspecified; Z82.49 Family history of ischemic heart disease and other diseases of the circulatory system; Z79.899 Other long term (current) drug therapy; Z87.891 Personal history of nicotine dependence; Z99.81 Dependence on supplemental oxygen; Z80.3 Family history of malignant neoplasm of breast

== ENCOUNTER → 2017-04-06 | Outpatient (CLI) | payer BC ==
[~2017-04-06] MED LIST changes: -AMLO-110 PO; +BENZ100C7 PO; +BENZ100C84 PO; +DORN1SOL INH; +GFNSR600 PO; -GUAI1SOL5 PO; +LEVO-366 PO; +MESA0.37 PO; +NYSS/ PO; +OXGN; +PLMIH INH; +PRED10TA PO
[2017-04-06 15:44] LABS: BASO % 0.1 %; BASO ABS # 0.01 K/uL (0-0.2); COMPLETE YES; EOS % 0.5 %; HEMATOCRIT 39.6 % (42-52); IG% 0.3 %; LYMPH % 3.4 %; LYMPH ABS # 0.35 K/uL (1.2-3.4); MEAN CELL VOLUME 96.4 fL (80-100); MEAN CORPUSCULAR HEMOGLOBIN 30.9 pg (25-34); MEAN CORPUSCULAR HGB CONC 32.1 g/dl (32-36); MEAN PLATELET VOLUME 9.8 fL (7.4-10.4); MONO % 2.8 %; NEUT % 92.9 %; PLATELET COUNT 218 K/uL (130-400); RED BLOOD COUNT 4.11 M/uL (4.7-6.1); WHITE BLOOD COUNT 10.38 K/uL (4.8-10.8)
[2017-04-06 16:16] LABS: ALT/SGPT 37 U/L (12-78); AST/SGOT 15 U/L (15-37); BLOOD UREA NITROGEN 14 mg/dl (7-18); CALCIUM 8.8 mg/dl (8.5-10.1); CARBON DIOXIDE 27 mmol/L (21-32); CHLORIDE 100 mmol/L (98-107); GLUCOSE 149 mg/dl (70-99); POTASSIUM 4.2 mmol/L (3.5-5.1); SODIUM 135 mmol/L (136-145)
[2017-04-06 16:18] LABS: ALB/GLOB RATIO 0.9 (0.9-2); ALKALINE PHOSPHATASE 69 U/L (45-117)
== END | disposition home or self-care (01) ==
LOC: C.LAB 14:47
PROVIDERS: ATTEND Physician Assistant
DX: J47.9 Bronchiectasis, uncomplicated (principal)

== ENCOUNTER → 2017-05-16 | Outpatient (CLI) | payer BC ==
[2017-05-16 17:12] LABS: BASO % 1.8 %; BASO ABS # 0.15 K/uL (0-0.2); COMPLETE YES; EOS % 20.2 %; HEMATOCRIT 38.7 % (42-52); IG% 0.2 %; LYMPH % 6.5 %; LYMPH ABS # 0.55 K/uL (1.2-3.4); MEAN CELL VOLUME 97.2 fL (80-100); MEAN CORPUSCULAR HEMOGLOBIN 32.7 pg (25-34); MEAN CORPUSCULAR HGB CONC 33.6 g/dl (32-36); MEAN PLATELET VOLUME 10.4 fL (7.4-10.4); MONO % 11.6 %; NEUT % 59.7 %; PLATELET COUNT 217 K/uL (130-400); RED BLOOD COUNT 3.98 M/uL (4.7-6.1); WHITE BLOOD COUNT 8.48 K/uL (4.8-10.8)
[2017-05-16 17:21] LABS: PARTIAL THROMBOPLASTIN RATIO 1.1; PROTHROMBIN TIME (PATIENT) 10.9 SECONDS (9.0-12.0)
[2017-05-16 17:51] LABS: ALT/SGPT 42 U/L (12-78); AST/SGOT 22 U/L (15-37); BLOOD UREA NITROGEN 14 mg/dl (7-18); BUN/CREATININE RATIO 12.3 (10-20); CALCIUM 8.7 mg/dl (8.5-10.1); CARBON DIOXIDE 29 mmol/L (21-32); CHLORIDE 103 mmol/L (98-107); GLUCOSE 100 mg/dl (70-99); SODIUM 138 mmol/L (136-145)
[2017-05-16 17:53] LABS: ALKALINE PHOSPHATASE 78 U/L (45-117)
== END | disposition home or self-care (01) ==
LOC: C.LAB1850 15:37
PROVIDERS: ATTEND Physician Assistant
DX: J44.9 Chronic obstructive pulmonary disease, unspecified (principal)

== ENCOUNTER 2017-05-22 06:20 | Day surgery (SDC) | payer BC ==
[2017-05-22] VITALS (13 sets, daily range): BP systolic 101–133; BP diastolic 56–88; PULSE 63–87; TEMP 36.7; O2SAT 92–97; Ht 185.4 cm; Wt 97.0 kg
[~2017-05-22] VITALS: Ht 185.4 cm; Wt 97.0 kg
[~2017-05-22 06:20] MED LIST changes: -BENZ100C84 PO; -DORN1SOL INH; -LEVO-366 PO; -MESA0.37 PO; -NYSS/ PO; -OXGN
[2017-05-22] MEDS ORDERED: FENTANYL CITRATE 100 MCG 2 ML CARP IV ONE (06:21)
[2017-05-22] MEDS ORDERED: MIDAZOLAM HCL 5 MG/ML 1 ML VIAL IV ONE (06:21)
--- NOTE | 2017-05-22 07:31 | History and Physical ---
History & Physical Date May 22, 2017. Chief Complaint Refractory Chronic Bronchiectasis History of Present Illness The patient is a 66 year old male with complaints of recurrent/refractory bronchiectasis: 66 y/o male patient is here for a bronchoscopy secondary to recurrent and progressive bronchiectasis with a history of mucus plugging requiring mechanical removale. At this time, he is slowly regressing. He is on a vibration vest and is using a mucolytic. Past Medical/Surgical History Medical Problems: (1) Bronchitis (2) Emphysema, unspecified (3) Hypertension (4) Hypoxia (5) Influenza A (6) Pneumonia (7) Pneumonia (8) Sinus tachycardia seen on cardiac sonographer Additional History Hepatic Disease: No Endocrine Disorder: No Kidney Disease: No Hypertension: No Heart Disease: No Bleeding Tendencies: No Infectious Diseases: Burkholderia Cepacia via BAL Allergies Coded Allergies: No Known Allergies (Unverified , 05/22/17) Home Medications Scheduled Azathioprine (Imuran), 50 MG PO BID Budesonide/Formoterol Fumarate (Symbicort 160/4.5 Inhaler), 2 PUFF INH BID Colestipol Hcl (Colestipol Hcl), 1 GM PO BID Cyanocobalamin (Vitamin B-12), 100 MCG PO DAILY Dornase Robin (Pulmozyme), 2.5 ML INH BIDR Furosemide (Lasix), 40 MG PO DAILY Guaifenesin Ext Rel (Mucinex Ext Rel), 600 MG PO Q12 Ipratropium-Albuterol (Duoneb), 1 TREATMENT INH TID Levothyroxine Sodium (Synthroid), 88 MCG PO QPM Loperamide HCl (Loperamide HCl), 2 MG PO BID Losartan Potassium (Losartan Potassium), 50 MG PO DAILY Multivitamin (Multivitamin), 1 TAB PO DAILY Prednisone Tab (Prednisone), 40 MG PO DAILY Tiotropium [place] (Spiriva Handihaler), 1 PUFF INH QAM Zolpidem Tartrate (Ambien), 10 MG PO HS Scheduled PRN Albuterol Sulf (Proventil 0.083% 2.5MG/3ML), 2.5 MG INH Q4 PRN for Shortness of Breath Albuterol Sulfate (Proair Respiclick), 2 PUFFS INH QID PRN for SOB/Wheezing Benzonatate (Benzonatate), 100 MG PO TID PRN for Cough Physical Examination Skin: warm/dry, no rash Eyes: normal inspection, EOMI, sclerae normal ENT: normal ENT inspection, pharynx normal Head: normocephalic, atraumatic Neck: supple, no adenopathy, trachea midline Respiratory/Chest: + pertinent finding (Respiratory effort: No increased work of breathing or signs of respiratory distress. ) Cardiovascular: regular rate, rhythm, no edema, no murmur Abdomen / GI: normal bowel sounds, non tender Back: normal inspection Extremities: normal inspection, normal range of motion Neurologic/Psych: no motor/sensory deficits, alert, normal reflexes, oriented x 3 Diagnosis Recurrent and refractory bronchiectasis ASA Classification: ASA Class III Plan of Treatment Bronchoscopy with BAL
[2017-05-22] MEDS ORDERED: OXGN (07:36)
--- NOTE | 2017-05-22 08:53 | Procedure Note ---
Pre-Mod Sedation Assessment General Date of Moderate Sedation: May 22, 2017. Vital Signs: Vital Signs Past 12 Hours Date Time Temp Pulse Resp B/P (MAP) Pulse Ox O2 Delivery O2 Flow Rate FiO2 05/22/17 08:16 66 21 125/81 96 Room Air 05/22/17 07:37 36.7 74 18 133/71 (91) Room Air Review Cardiovascular: regular rate, rhythm, no edema, no gallop, no JVD, no murmur, normal peripheral pulses Abdomen: normal bowel sounds, non tender, soft, no organomegaly, no pulsatile mass Lungs: + rhonchi Pre-Sedation Airway Assessment Oral Cavity: Dentures Able to Visualize Vocal Cords: Yes Short Thick Neck: No Hx of Sleep Apnea: No Smoking Status: Former Smoker Mallampati Classification: Class III ASA Classification: Class II Procedure Planning Contraindications-for Mod Sed: None Yes Notes The planned sedation has been discussed with the patient and consent obtained. I have identified the patient, determined the appropriateness of sedation and have assessed the patient immediately prior to the procedure. All medicine(s) and interventions are by my order.
--- NOTE | 2017-05-22 08:54 | Bronchoscopy Procedure Note ---
Bronchoscopy Procedure Note Procedure: Bronchoscopy, conscious sedation, bronchial lavage lingula Consent: Obtained through the patient placed into the chart Pre-procedural diagnosis: Chronic bronchiectasis Post-procedural diagnosis: Chronic bronchiectasis Start time: 824 End time: 841 Total time: 17 minutes Analgesia: 2% liquid lidocaine: Via nebulizer 4% gel lidocaine: Via right naris 2% liquid lidocaine: Via bronchoscopy Sedation: Versed IV: 5mg Fentanyl IV: 100g Procedure: The Auramist video bronchoscope was used for this procedure and passed down through the right naris Right naris/posterior naris/posterior oropharynx: Anatomically within normal limits Glottis: Anatomically within normal limits Vocal cords: Proper abduction and abduction, anatomically within normal limits Subglottis/trachea/Beth: Anatomically within normal limits Right bronchial tree: Right mainstem bronchus: Anatomically within normal limits Right upper lobe: Anatomically within normal limits Bronchus intermedius: Anatomically within normal limits Right middle lobe: Anatomically within normal limits Right lower lobe: Anatomically within normal limits Findings: Diffuse mucous plugs noted throughout all lobes Left bronchial tree: Left mainstem bronchus: Anatomically within normal limits Left upper lobe: Anatomically within normal limits Lingula: Anatomically within normal limits Left lower lobe: Anatomically within normal limits Findings: Diffuse mucous plugs noted throughout all lobes with minor bleeding associated in the lingula Bronchial alveolar lavage: EBL: 1 cc Complications: None Follow-up: In the [facility]
--- NOTE | 2017-05-22 08:57 | Discharge Instructions ---
Discharge Instructions Date of Service May 22, 2017. Admission Reason for Admission: Copd, Mucous Plugging Discharge Discharge Diagnosis / Problem: chronic bronchiectasis with acute flare Discharge Goals Goal(s): Improve function, Diagnostic testing Activity Recommendations Activity Limitations: resume your previous activity . Instructions / Follow-Up Instructions / Follow-Up Follow-up in the [facility] pulmonary group offices Current Hospital Diet Patient's current hospital diet: Discharge Diet Recommended Diet: Regular Diet Procedures Procedures Performed: Bronchoscopy with bronchial lavage of the lingula Pending Studies Studies pending at discharge: no Medical Emergencies . Who to Call and When: Medical Emergencies: If at any time you feel your situation is an emergency, please call 911 immediately. . Non-Emergent Contact Non-Emergency issues call your: [employer] . . "Provider Documentation" section prepared by Alexander Alamo. . VTE Core Measure Inpt VTE Proph given/why not?: Treatment not indicated
--- NOTE | 2017-05-22 08:57 | Procedure Note ---
Post-Moderate Sedation Plan General Date of Moderate Sedation May 22, 2017. Vital Signs: Vital Signs Past 12 Hours Date Time Temp Pulse Resp B/P (MAP) Pulse Ox O2 Delivery O2 Flow Rate FiO2 05/22/17 08:16 66 21 125/81 96 Room Air 05/22/17 07:37 36.7 74 18 133/71 (91) Room Air Review - Discharge Plan Post Moderate Sedation Plan: On clinical assessment, the patient appears to have tolerated the conscious sedation without complications. Patient is recovering as anticipated. Patient will continue to be monitored by nursing and may be discharged when conscious sedation discharge criteria are met.
[2017-05-22] MEDS ORDERED: MIDAZOLAM HCL 5 MG/ML 1 ML VIAL IV SCH (09:05)
[2017-05-22] MEDS ORDERED: FENTANYL CITRATE INJ 50 MCG/1 ML 2 ML VIAL IV SCH (09:05)
[2017-05-22] MEDS ORDERED: NURSING VERBAL MED ORDER ONE (09:15)
== END 2017-05-22 11:10 | disposition home or self-care (01) ==
LOC: C.ACU 06:20
PROVIDERS: ATTEND Internal Medicine Critical Care Medicine
DX: J47.9 Bronchiectasis, uncomplicated (principal); T17.508A Unspecified foreign body in bronchus causing other injury, initial encounter; X58.XXXA Exposure to other specified factors, initial encounter; Z79.52 Long term (current) use of systemic steroids

== ENCOUNTER → 2017-07-05 | Outpatient (CLI) | payer BC ==
[~2017-07-05] MED LIST changes: +BENZ100C84 PO; +DORN1SOL INH; +MESA0.37 PO; +NYSS/ PO; +OXGN; -PRED10TA PO
[2017-07-05 15:56] LABS: BASO % 0.4 %; BASO ABS # 0.04 K/uL (0-0.2); COMPLETE YES; EOS % 3.9 %; HEMATOCRIT 42.2 % (42-52); IG% 0.2 %; LYMPH % 4.6 %; LYMPH ABS # 0.47 K/uL (1.2-3.4); MEAN CELL VOLUME 94.8 fL (80-100); MEAN CORPUSCULAR HEMOGLOBIN 31.9 pg (25-34); MEAN CORPUSCULAR HGB CONC 33.6 g/dl (32-36); MEAN PLATELET VOLUME 10.5 fL (7.4-10.4); NEUT % 80.9 %; PLATELET COUNT 266 K/uL (130-400); RED BLOOD COUNT 4.45 M/uL (4.7-6.1); WHITE BLOOD COUNT 10.11 K/uL (4.8-10.8)
[2017-07-05 16:00] LABS: PARTIAL THROMBOPLASTIN RATIO 1.2; PROTHROMBIN TIME (PATIENT) 10.7 SECONDS (9.0-12.0)
[2017-07-05 16:20] LABS: ALT/SGPT 47 U/L (12-78); BLOOD UREA NITROGEN 8 mg/dl (7-18); BUN/CREATININE RATIO 8.1 (10-20); CALCIUM 9.4 mg/dl (8.5-10.1); CARBON DIOXIDE 31 mmol/L (21-32); CHLORIDE 102 mmol/L (98-107); CREATININE 0.98 mg/dl (0.60-1.40); GLUCOSE 113 mg/dl (70-99); POTASSIUM 3.7 mmol/L (3.5-5.1); SODIUM 138 mmol/L (136-145)
[2017-07-05 16:23] LABS: ALKALINE PHOSPHATASE 84 U/L (45-117); AST/SGOT 31 U/L (15-37)
== END | disposition home or self-care (01) ==
LOC: C.LAB1850 15:04
PROVIDERS: ATTEND Physician Assistant
DX: J44.1 Chronic obstructive pulmonary disease with (acute) exacerbation (principal)

== ENCOUNTER 2017-07-09 06:10 | Observation (INO) | payer BC ==
[~2017-07-09] VITALS: Ht 185.4 cm; Wt 101.0 kg
[2017-07-09] VITALS (25 sets, daily range): BP systolic 103–131; BP diastolic 49–71; PULSE 69–103; TEMP 36.6–37.4; O2SAT 89–96; Ht 185.4 cm; Wt 101.0 kg
[~2017-07-09 06:10] MED LIST changes: -BENZ100C84 PO; -DORN1SOL INH; -MESA0.37 PO; -NYSS/ PO
[2017-07-09] MEDS ORDERED: DORN1SOL INH (06:50)
[2017-07-09] MEDS ORDERED: BENZ100C84 PO (06:50)
[2017-07-09] MEDS ORDERED: MESA0.37 PO (06:53)
--- NOTE | 2017-07-09 07:41 | History and Physical ---
History & Physical Date Jul 09, 2017. Chief Complaint Acute Bronchiectasis History of Present Illness The patient is a 66 year old male with complaints of Acute Bronchiectasis 66-year-old gentleman with current bronchiectasis and history of diffuse mucus plugging requiring mechanical/bronchoscopic removal. He has aggressively using his inhalers as well as vibration best and anti-mucolytic but notes increasing dyspnea on exertion signs and symptoms consistent with bronchiectatic flare. I should note that on previous bronchoscopy performed 03/21/2017 the patient did grow out Burkholderia cepacia. 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 Sulfamethoxazole-Trimethoprim 800-160 MG Oral Tablet twice daily 2. Acetylcysteine 20 % Inhalation Solution; INHALE 4 ML Twice daily 3. Nystatin [id number] UNIT/ML Mouth/Throat Suspension 6ML QID 4. Albuterol Sulfate (2.5 MG/3ML) 0.083% Nebulization 4-6 HOURS PRN WHEEZING 5. Ipratropium-Albuterol 0.5-2.5 (3) MG/3ML NEBULIZER 4 TIMES DAILY 6. TraMADol HCl - 50 MG Oral Tablet; TAKE 1 TABLET Every 6 hours PRN; 7. Benzonatate 200 MG Oral Capsule; TAKE 1 CAPSULE 3 TIMES DAILY NEEDED 8. PredniSONE 10 MG Oral;4tablets daily [id number],then3.5tablets daily [id number] 9. Ambien 10 MG Oral Tablet; TAKE 1 TABLET Bedtime 10. AmLODIPine Besylate 5 MG Oral Tablet; TAKE 1 TABLET DAILY; 11. Apriso CP24 12. Cialis 10 MG Oral Tablet; 13. Colestipol HCl - 1 GM Oral Tablet; TAKE 1 TABLET TWICE DAILY; 14. Levothyroxine Sodium 88 MCG Oral Tablet; TAKE 1 TABLET DAILY; 15. Loperamide HCl 2 MG TABS; take 1 tablet twice daily as needed; 16. Losartan Potassium 50 MG Oral Tablet; 17. Multi-Vitamin Oral Tablet; TAKE 1 TABLET DAILY 18. ProAir HFA 108 (90 Base) MCG/ACT Inhalation INHALE 2 PUFFS 4 PRN -1-9-.- -T-v-m-q-r-e-y-m-e- -1- -M-G--/--M-L- -S-c-v-l-r-i-t-i-o-n- -F-a-t-u-t-i-o-n- 20. Spiriva HandiHaler 18 MCG Inhalation Capsule; INHALE 1 CAPSULE DAILY 21. Symbicort 160-4.5 MCG/ACT Inhalation Aerosol; INHALE 2 PUFFS TWICE DAILY 22. Vitamin B Complex TABS; TAKE 1 TABLET DAILY; 23. Vitamin D3 23070 UNIT Oral Capsule; TAKE 1 CAPSULE DAILY; NKDA Additional History Hepatic Disease: No Endocrine Disorder: No Kidney Disease: No Hypertension: No Heart Disease: No Bleeding Tendencies: No Infectious Diseases: No Allergies Coded Allergies: No Known Allergies (Unverified , 07/09/17) Home Medications Scheduled Budesonide/Formoterol Fumarate (Symbicort 160/4.5 Inhaler), 2 PUFF INH BID Colestipol Hcl (Colestipol Hcl), 1 GM PO BID Cyanocobalamin (Vitamin B-12), 100 MCG PO DAILY Dornase Robin (Pulmozyme), 1 INHA INH BID Furosemide (Lasix), 40 MG PO DAILY Home O2 Therapy (Oxygen), 2 LITERS NA HS Ipratropium-Albuterol (Duoneb), 1 TREATMENT INH TID Levothyroxine Sodium (Synthroid), 88 MCG PO QPM Loperamide HCl (Loperamide HCl), 2 MG PO BID Losartan Potassium (Losartan Potassium), 50 MG PO DAILY Mesalamine (Apriso), 4 CAP PO DAILY Multivitamin (Multivitamin), 1 TAB PO DAILY Tiotropium [place] (Spiriva Handihaler), 1 PUFF INH QAM Zolpidem Tartrate (Ambien), 10 MG PO HS Scheduled PRN Albuterol Sulf (Proventil 0.083% 2.5MG/3ML), 2.5 MG INH Q4 PRN for Shortness of Breath Albuterol Sulfate (Proair Respiclick), 2 PUFFS INH QID PRN for SOB/Wheezing Benzonatate (Tessalon Perles), 1 CAP PO TID PRN for Cough Physical Examination Skin: warm/dry, no rash Eyes: normal inspection, EOMI, sclerae normal ENT: normal ENT inspection, pharynx normal Head: normocephalic, atraumatic Neck: supple, no adenopathy, trachea midline Respiratory/Chest: lungs clear, normal breath sounds, no respiratory distress Cardiovascular: regular rate, rhythm, no edema, no murmur Abdomen / GI: normal bowel sounds, non tender Back: normal inspection Extremities: normal inspection, normal range of motion Neurologic/Psych: no motor/sensory deficits, alert, normal reflexes, oriented x 3 Diagnosis Acute on Chronic Bronchitis ASA Classification: ASA Class III Plan of Treatment Bronchoscopy with conscious sedation bronchial lavage
--- NOTE | 2017-07-09 08:09 | Procedure Note ---
Pre-Mod Sedation Assessment General Date of Moderate Sedation: Jul 09, 2017. Vital Signs: Vital Signs Past 12 Hours Date Time Temp Pulse Resp B/P (MAP) Pulse Ox O2 Delivery O2 Flow Rate FiO2 07/09/17 07:45 36.8 90 28 106/60 91 Room Air 07/09/17 06:54 36.8 90 28 106/60 (75) 91 Room Air Review Cardiovascular: regular rate, rhythm, no edema, no gallop, no JVD, no murmur Abdomen: normal bowel sounds, non tender, soft, no organomegaly, no pulsatile mass Lungs: + rhonchi, + wheezing Pre-Sedation Airway Assessment Oral Cavity: Dentures Short Thick Neck: No Hx of Sleep Apnea: Yes Smoking Status: Former Smoker Notes The planned sedation has been discussed with the patient and consent obtained. I have identified the patient, determined the appropriateness of sedation and have assessed the patient immediately prior to the procedure. All medicine(s) and interventions are by my order.
--- NOTE | 2017-07-09 08:56 | Procedure Note ---
Post-Moderate Sedation Plan General Date of Moderate Sedation Jul 09, 2017. Vital Signs: Vital Signs Past 12 Hours Date Time Temp Pulse Resp B/P (MAP) Pulse Ox O2 Delivery O2 Flow Rate FiO2 07/09/17 08:45 89 14 105/61 94 Mask 8.0 07/09/17 08:40 81 18 131/61 94 Mask 8.0 07/09/17 08:35 86 20 130/62 94 Mask 8.0 07/09/17 08:30 86 20 129/65 96 Mask 8.0 07/09/17 08:25 84 18 116/61 96 Mask 8.0 07/09/17 08:20 83 18 110/60 90 Nasal Cannula 2.0 07/09/17 07:45 36.8 90 28 106/60 91 Room Air 07/09/17 06:54 36.8 90 28 106/60 (75) 91 Room Air Review - Discharge Plan Post Moderate Sedation Plan: On clinical assessment, the patient appears to have tolerated the conscious sedation without complications. Patient is recovering as anticipated. Patient will continue to be monitored by nursing and may be discharged when conscious sedation discharge criteria are met.
[2017-07-09] MEDS ORDERED: NURSING VERBAL MED ORDER ONE (09:00)
[2017-07-09] MEDS ORDERED: MIDAZOLAM HCL 5 MG/ML 1 ML VIAL IV ONE ×2 (09:00→13:29)
[2017-07-09] MEDS ORDERED: FENTANYL CITRATE INJ 50 MCG/1 ML 2 ML VIAL IV ONE (09:00)
--- NOTE | 2017-07-09 09:00 | Procedure Note ---
Post-Moderate Sedation Plan General Date of Moderate Sedation Jul 09, 2017. Vital Signs: Vital Signs Past 12 Hours Date Time Temp Pulse Resp B/P (MAP) Pulse Ox O2 Delivery O2 Flow Rate FiO2 07/09/17 08:45 89 14 105/61 94 Mask 8.0 07/09/17 08:40 81 18 131/61 94 Mask 8.0 07/09/17 08:35 86 20 130/62 94 Mask 8.0 07/09/17 08:30 86 20 129/65 96 Mask 8.0 07/09/17 08:25 84 18 116/61 96 Mask 8.0 07/09/17 08:20 83 18 110/60 90 Nasal Cannula 2.0 07/09/17 07:45 36.8 90 28 106/60 91 Room Air 07/09/17 06:54 36.8 90 28 106/60 (75) 91 Room Air Review - Discharge Plan Post Moderate Sedation Plan: On clinical assessment, the patient appears to have tolerated the conscious sedation without complications. Patient is recovering as anticipated. Switch to the patient is about admission at this time for pseudomembranous tracheal bronchial changes
--- NOTE | 2017-07-09 09:00 | Bronchoscopy Procedure Note ---
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 Start time: 827 End time: 849 Total time: 22minutes Analgesia: 2% liquid lidocaine: Via nebulizer 4% gel lidocaine: Via right naris 2% liquid lidocaine: Via bronchoscopy Sedation: Versed IV: 5mg Fentanyl IV: 125 g Procedure: The Olympus video bronchoscope was used for this procedure and passed down through the right naris Right naris/posterior naris/posterior oropharynx: Diffuse mucous secretions at the opening/oximeter right naris Glottis: Anatomically within normal limits, diffuse mucous secretions appreciated on the glottis Vocal cords: Proper abduction and abduction, anatomically within normal limits Subglottis/trachea/Behzad: There is pseudomembranous changes along the trachea as well as behzad Right bronchial tree: Right mainstem bronchus: Mild pseudomembranous changes Right upper lobe: Anatomically within normal limits Bronchus intermedius: Mild pseudomembranous changes Right middle lobe: Diffuse erythema Right lower lobe: Diffuse erythema and notable mucous plugging Findings: Mild pseudomembranous changes with diffuse erythema mucous plugging Left bronchial tree: Left mainstem bronchus: Mild pseudomembranous changes Left upper lobe: Erythema with diffuse mucus plugs Lingula: Erythema with diffuse mucus plugs Left lower lobe: Erythema with diffuse mucus plugs Findings: Erythema with diffuse mucus plugs Bronchial washing lavage: Right lower lobe EBL: None Complications: None Follow-up: Patient requires admission
[2017-07-09] MEDS ORDERED: MAGNESIUM HYDROXIDE SUSP 30 ML UDC PO PRN (10:30)
[2017-07-09] MEDS ORDERED: ONDANSETRON INJ 2 MG/ML 2 ML VIAL IV PRN (10:30)
[2017-07-09] MEDS ORDERED: POLYETHYLENE (MIRALAX) 17 GM PACK PO PRN (10:30)
[2017-07-09] MEDS ORDERED: ACETAMINOPHEN 325 MG TAB PO PRN (10:30)
--- NOTE | 2017-07-09 10:30 | History and Physical ---
History & Physical Date & Time of Service: Jul 09, 2017 at 10:13 Chief Complaint: COPD Primary Care Physician: Jocelyne Cook M.D. History of Present Illness Source: patient, family 66 yo M with PMHx of COPD, CAP, aspiration pneumonia, hx of candidiasis, Crohns disease, diverticulosisi, hypothyroidism, obstructive sleep apnea and current bronchiectasis and history of diffuse mucus plugging requiring mechanical/ bronchoscopic removal completed by Dr Alamo on 07/09. 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 During bronchoscopy diffuse mucoid membranous findings more prominent in the right, but concerning for other infectious etiology, including aspergillus per discussion with Dr. Alamo. The patient and his were seen in surgery holding unit. He reports worsening shortness of breath over the past few weeks despite aggressive use of inhalers, vibration vest and anti-mucolytic agents. He has been coughing yellow thick mucous, denies any blood or other tint of color, multiple times daily. Even when he laughs he ends up coughing. He has been able to climb 2 flights of stairs in his home without difficulty however. He denies any issues with bowel recently. Although notes he was recently taken off an immunosuppresant for his Crohns disease due to pulmonary history and his risk for infection. Past Medical/Surgical History Medical Problems: (1) Bronchitis Status: Resolved (2) Emphysema, unspecified Status: Resolved (3) Hypertension Status: Chronic (4) Pneumonia Status: Resolved Aspiration pneumonia Bronchiectasis Candidiasis CAP (community acquired pneumonia) Chronic obstructive pulmonary disease Chronic pain COPD exacerbation Crohn's disease Diverticulosis Hypothyroidism Mucus plugging of bronchi Obstructive sleep apnea Family History FH: cancer FH: hypertension Social History Parents both smoked in home, large smoke exposure as a child. 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 Smoking Status: Former Smoker Smokeless Tobacco Use: No Alcohol Use: none Drug Use: none Marital Status: Housing status: lives with family Occupational Status: retired Multi-Drug Resistant Organisms History of MDRO: No Allergies Coded Allergies: No Known Allergies (Unverified , 07/09/17) Home Medications Scheduled Budesonide/Formoterol Fumarate (Symbicort 160/4.5 Inhaler), 2 PUFF INH BID Colestipol Hcl (Colestipol Hcl), 1 GM PO BID Cyanocobalamin (Vitamin B-12), 100 MCG PO DAILY Dornase Robin (Pulmozyme), 1 INHA INH BID Furosemide (Lasix), 40 MG PO DAILY Home O2 Therapy (Oxygen), 2 LITERS NA HS Ipratropium-Albuterol (Duoneb), 1 TREATMENT INH TID Levothyroxine Sodium (Synthroid), 88 MCG PO QPM Losartan Potassium (Losartan Potassium), 50 MG PO DAILY Mesalamine (Apriso), 4 CAP PO DAILY Multivitamin (Multivitamin), 1 TAB PO DAILY Nystatin (Nystatin Suspension), 5 ML PO TID Tiotropium [place] (Spiriva Handihaler), 1 PUFF INH QAM Zolpidem Tartrate (Ambien), 10 MG PO HS Scheduled PRN Albuterol Sulf (Proventil 0.083% 2.5MG/3ML), 2.5 MG INH Q4 PRN for Shortness of Breath Albuterol Sulfate (Proair Respiclick), 2 PUFFS INH QID PRN for SOB/Wheezing Benzonatate (Tessalon Perles), 1 CAP PO TID PRN for Cough Review of Systems Constitutional: No fever, No chills, No sweats, No fatigue Eyes: No redness, No diplopia ENT: No tinnitus, No trouble swallowing Respiratory: + cough, + sputum, + wheezing, + dyspnea on exertion, No dyspnea at rest, No hemoptysis Cardiovascular: No chest pain, No edema, No palpitations Abdomen: No pain, No nausea, No vomiting, No diarrhea, No constipation Musculoskeletal: No joint pain Genitourinary - Male: No hematuria, No dysuria Neurologic: No memory loss, No numbness/tingling, No balance problems Endocrine: No fatigue Integumentary: No rash, No itch Physical Exam Vital Signs Date Time Temp Pulse Resp B/P (MAP) Pulse Ox O2 Delivery O2 Flow Rate FiO2 07/09/17 10:05 83 20 112/49 95 Nasal Cannula 4 07/09/17 09:45 81 20 107/54 92 Nasal Cannula 4 07/09/17 09:26 83 24 116/59 92 Nasal Cannula 5 07/09/17 09:02 37.1 82 16 112/60 93 Nasal Cannula 6 07/09/17 08:55 83 16 118/63 93 Nasal Cannula 5.0 07/09/17 08:50 79 16 112/57 94 Mask 8.0 07/09/17 08:45 89 14 105/61 94 Mask 8.0 07/09/17 08:40 81 18 131/61 94 Mask 8.0 07/09/17 08:35 86 20 130/62 94 Mask 8.0 07/09/17 08:30 86 20 129/65 96 Mask 8.0 07/09/17 08:25 84 18 116/61 96 Mask 8.0 07/09/17 08:20 83 18 110/60 90 Nasal Cannula 2.0 07/09/17 07:45 36.8 90 28 106/60 91 Room Air 07/09/17 06:54 36.8 90 28 106/60 (75) 91 Room Air General Appearance: WD/WN, no apparent distress Head: normocephalic, atraumatic Eyes: PERRL, EOMI, + pertinent finding (oral mucosa without white exudate, MMM) ENT: hearing grossly normal, pharynx normal Neck: supple, no JVD Respiratory/Chest: + pertinent finding (On 4 L via NC, + cough with yellow sputum production, + coarse rales throughout s/p bronchoscopy, no wheeze.) Cardiovascular: regular rate, rhythm, no murmur, normal peripheral pulses Abdomen/GI: normal bowel sounds, non tender, soft Back: normal inspection Extremities/Musculoskelatal: normal inspection, no calf tenderness, no pedal edema Neurologic/Psych: alert, normal mood/affect, oriented x 3 Skin: normal color, warm/dry Diagnostics Laboratory Results Results Past 24 Hours Test 07/09/17 06:42 07/09/17 09:05 Range/Units Bedside Glucose 121 70-99 mg/dl Microbiology Results 07/09/17 Fungal Smear, Received Pending 07/09/17 Fungal Culture, Received Pending 07/09/17 Acid Fast Stain, Received Pending 07/09/17 Mycobacterial Culture, Received Pending 07/09/17 Gram Stain, Received Pending 07/09/17 Bronchoalveolar Lavage Culture, Received Pending Impression Assessment and Plan 66 yo M with PMHx of COPD, CAP, aspiration pneumonia, hx of candidiasis, Crohns disease, diverticulosisi, hypothyroidism, obstructive sleep apnea and current bronchiectasis and history of diffuse mucus plugging requiring mechanical/ bronchoscopic removal completed by Dr Alamo on 07/09. 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 During bronchoscopy diffuse mucoid membranous findings more prominent in the right, but concerning for other infectious etiology, including aspergillus per discussion with Dr. Alamo. Shortness of breath COPD CAP Hx of burkholderia cepacia (ie pseudomonas) S/p bronchoscopy by Dr. Alamo on 07/09/17 - Admit to tele overnight for observation - Await bronchoscopy culture results, pending gram smear, fungal cx as there is concern for aspergillus - Continue O2 at needed - Continue inhalers as ordered - Start on viorconazole 6 mg/kg Q12H x 24 hours then decrease to 4 mg/kg Q12H afterwards, also cover with zosyn and vanc - Consulted pulm to follow Crohns - Noted, no active flare, continue mesalamine 4 cap po daily, HTN - Continue Lasix 40 mg daily, losartan 50 mg daily starting tomorrow with BPs lower in the 80s/60s during my examination at bedside.- trending back upwards now. HLD - continue colestipol 1 g BID Hypothyroidism - Continue levothyroxine 88 mcg Insomnia - Continue ambien 10 mg QHS for sleep DVT ppx: teds, scds, heparin subq CODE STATUS: FULL CODE Disposition: From home, d/c likely within 1 day as admitted under observation Level of Care Telemetry Resuscitation Status FULL RESUSCITATION VTE Prophylaxis Risk Level: Low Given or contraindicated: Unfractionated heparin SQ, T.E.D. Stockings, SCD's
[2017-07-09] MEDS ORDERED: NYSS/ PO (10:47)
[2017-07-09] MEDS ORDERED: VANCOMYCIN INJ 2,250 MG in SODIUM CHLORIDE 0.9% 500ML 500 ML IV STA (10:57)
[2017-07-09] MEDS ORDERED: PIPERACILL/TAZOBAC IV 4.5 GM in DEXTROSE 5% 100ML 100 ML IV STA (10:59)
[2017-07-09] MEDS ORDERED: VANCOMYCIN CONSULT ACTIVE PRN (11:00)
[2017-07-09] MEDS ORDERED: PIPERACILL/TAZOBAC CONSULT ACTIVE PRN (11:00)
--- NOTE | 2017-07-09 11:39 | Pulmonary Consultation ---
History General Date of Service: Jul 09, 2017. Stated Complaint: COPD HPI Patient is a 66 yo male with COPD, Crohns disease on chronic prednisone, ADELAIDA, bronchiectasis along with recent history of aspiration pneumonia/CAP among other chronic issues listed below who presented to [facility] today for bronchoscopic evaluation. The patient recently has been feeling poorly. He has had worsening cough, SOB, and difficulty expectorating sputum. He has been producing on and off thick, yellow sputum. At home, the patient is chronically on multiple pulmonary medications including Symbicort, Pulmozyme, Duoneb, and Spiriva which he has been using at home. He also has a chest PT vest at home which he has been using to help move his secretions. Upon bronchoscopy this morning, the patient was found to have diffuse mucus/ pseudo-membranous changes throughout the trachea and behzad. He also had diffuse erythema and mucus plugging throughout his bilateral lungs. The patient does also have history of previously growing out Burkholderia Cepacia of a bronchial washing from 03/24/17 at which time the organism was resistant to Ceftazidime, intermediately resistant to Levaquin, and sensitive to Bactrim. The patient was previously placed on PO Bactrim, which did help some for a short time. Unfortunately, the patient then worsened again. Patient had repeat bronchoscopic evaluation on 05/22/17 at which time he did not grow Burkholderia. He was noted to grow some saprophytic fungus but otherwise his studies were negative at that time. Currently, studies are pending from this mornings bronch. Due the findings on bronchoscopy, it was recommended that he be admitted for IV antibiotics and antifungal therapy. His vital signs have been stable since bronchoscopy. He is currently saturating at 91% on 4 L via nasal cannula. I did discuss this patient with Marimar Caputo PA-C. Historian: patient Onset: other (been worsening over the past few weeks) Severity: severe Complaint Status: worsened Review of Systems Constitutional: denies: chills, fever Eyes: denies: eye pain ENT: denies: loss of hearing Cardiovascular: denies: chest pain, chest tightness Respiratory: reports: cough, shortness of breath, wheezing, sputum production, SOUZA Gastrointestinal: denies: abdominal pain All Other Symptoms All Other Systems: Reviewed and Negative Past Medical History Past Medical History: Medical Problems: (1) Bronchitis (2) Emphysema, unspecified (3) Hypertension (4) Hypoxia (5) Influenza A (6) Pneumonia (7) Pneumonia (8) Sinus tachycardia seen on rn cardiac Surgical Problems: (1) S/P bronchoscopy with bronchoalveolar lavage Family History FH: cancer FH: hypertension Social History Hx Tobacco Use In Past Year?: No Smoking Status: Former Smoker Marital status: Housing status: lives with family Occupational Status: retired History of MDRO History of MDRO: No Allergies Coded Allergies: No Known Allergies (Unverified , 07/09/17) Current Medications Reported Home Medications Medications Dose Route/Sig Max Daily Dose Days Date Category Nystatin Suspension (Nystatin) 1 Ml Susp 5 Ml PO TID 07/09/17 Reported Apriso (Mesalamine) 0.375 Gm Cap 4 Cap PO DAILY 07/09/17 Reported Pulmozyme (Dornase Robin) 1 Mg/Ml Luz Maria 1 Inha INH BID 07/09/17 Reported Tessalon Perles (Benzonatate) 100 Mg Cap 1 Cap PO TID PRN 10 07/09/17 Reported Oxygen Gas 2 Liters NA HS 05/22/17 Reported Losartan Potassium 50 Mg Tab 50 Mg PO DAILY 03/12/17 Reported Lasix (Furosemide) 40 Mg Tab 40 Mg PO DAILY 03/12/17 Reported Symbicort 160/4.5 Inhaler (Budesonide/Formoterol Fumarate) 120 Puffs/ Aero 2 Puff INH BID 02/10/17 Reported Duoneb (Ipratropium-Albuterol) 3 Ml Nebu 1 Treatment INH TID 02/10/17 Reported Proventil 0.083% 2.5MG/3ML (Albuterol Sulf) 2.5 Mg/3 Ml Nebu 2.5 Mg INH Q4 PRN 02/10/17 Reported Proair Respiclick (Albuterol Sulfate) 108 Mcg/Act Aer 2 Puffs INH QID PRN 12/12/16 Reported Spiriva Handihaler (Tiotropium [place]) 5 Puff/90 Mcg Aerp 1 Puff INH QAM 12/12/16 Reported Colestipol Hcl 1 Gm Tab 1 Gm PO BID 12/12/16 Reported Synthroid (Levothyroxine Sodium) 88 Mcg Tab 88 Mcg PO QPM 05/31/16 Reported Multivitamin (Multivitamins) Tab 1 Tab PO DAILY 05/31/16 Reported Ambien (Zolpidem Tartrate) 10 Mg Tab 10 Mg PO HS 05/31/16 Reported Vitamin B-12 (Cyanocobalamin) 100 Mcg Tab 100 Mcg PO DAILY 05/31/16 Reported Physical Physical Exam Vital Signs: Date Time Temp Pulse Resp B/P (MAP) Pulse Ox O2 Delivery O2 Flow Rate FiO2 07/09/17 11:00 86 20 115/59 92 Nasal Cannula 4 07/09/17 10:30 83 20 103/57 91 Nasal Cannula 4 07/09/17 10:05 83 20 112/49 95 Nasal Cannula 4 07/09/17 09:45 81 20 107/54 92 Nasal Cannula 4 07/09/17 09:26 83 24 116/59 92 Nasal Cannula 5 07/09/17 09:02 37.1 82 16 112/60 93 Nasal Cannula 6 07/09/17 08:55 83 16 118/63 93 Nasal Cannula 5.0 07/09/17 08:50 79 16 112/57 94 Mask 8.0 07/09/17 08:45 89 14 105/61 94 Mask 8.0 07/09/17 08:40 81 18 131/61 94 Mask 8.0 07/09/17 08:35 86 20 130/62 94 Mask 8.0 07/09/17 08:30 86 20 129/65 96 Mask 8.0 07/09/17 08:25 84 18 116/61 96 Mask 8.0 07/09/17 08:20 83 18 110/60 90 Nasal Cannula 2.0 07/09/17 07:45 36.8 90 28 106/60 91 Room Air 07/09/17 06:54 36.8 90 28 106/60 (75) 91 Room Air General: Patient is awake, alert, cooperative, and in no acute distress. Well developed. Well-nourished. Head: Normocephalic, Atraumatic. ENT: PERRLA, No discharge, EOMI, Sclera normal Neck: Normal ROM. Trachea midline. No stridor Respiratory: Generalized wheeze throughout all lobes along with coarse rhonchi in the lower lobes. Currently on O2 via nasal cannula. No respiratory distress. No accessory muscle use. Cardiovascular: Regular rate and rhythm. No murmur appreciate. Normal S1/S2. Abdomen: Nontender to palpation. Normal bowel sounds hear throughout. No guarding. Abdomen is soft and nontender Back: Normal inspection. Extremities: No edema, cyanosis. Normal ROM Neuro: Alert, Oriented x 3. CN II-XII grossly intact. Psych: Mood and affect are normal. Diagnostics Labs Results Past 24 Hours Test 07/09/17 06:42 07/09/17 09:05 Range/Units Bedside Glucose 121 70-99 mg/dl Microbiology Results 07/09/17 Fungal Smear, Received Pending 07/09/17 Fungal Culture, Received Pending 07/09/17 Acid Fast Stain, Received Pending 07/09/17 Mycobacterial Culture, Received Pending 07/09/17 Gram Stain, Received Pending 07/09/17 Bronchoalveolar Lavage Culture, Received Pending Impression Assessment and Plan Patient with COPD, ADELAIDA, and bronchiectasis with suspected new lung infection of unknown etiology. Recommended patient be admitted for further testing and IV antibiotics/antifungal therapy pending micro findings. Patient is chronically immunosuppressed, so concerned for opportunistic infection. Patient started on IV Zosyn, Vancomycin, and Voriconazole pending further workup. Continue outpatient pulmonary medications- Duoneb, Pulmozyme, Spiriva, Symbicort Continue chest PT vest and aggressive pulmonary toilet. Will order vest while inpatient along with flutter valve. Continue O2 supplementation to keep SaO2 >88%. Will check CXR. Will also check Fungitell and Galactomannan. Discussed with Dr. Alamo. We will follow. Patient was seen and examined and bronchoscopy performed, please refer to bronchoscopic note. I agree with plan above and will continue to monitor which her at this time the pulmonary service. Next
[2017-07-09] MEDS ORDERED: [UNRECOGNIZED DRUG - OTHER] PRN (12:30)
[2017-07-09] MEDS ORDERED: IV FLUIDS COMPLETED PRN (12:30)
[2017-07-09] MEDS ORDERED: ALBUTEROL HFA 8 GM INHALER INH PRN (12:30)
[2017-07-09] MEDS ORDERED: NURSING DECISION MEDICATION ORDER SCH (12:30)
[2017-07-09] MEDS: TIOTROPIUM BROMIDE 5 PUFF/90 MCG INH INH SCH (13:17)
[2017-07-09 13:25] LABS: CREATININE 0.96 mg/dl (0.60-1.40)
[2017-07-09] MEDS: HEPARIN SOD 5000 UNIT/0.5 ML CARP SQ SCH ×2 (13:28→20:51)
[2017-07-09] MEDS ORDERED: FENTANYL CITRATE 100 MCG 2 ML CARP IV ONE (13:29)
[2017-07-09] MEDS ORDERED: LIDOCAINE HCL 2% LOCAL 50ML VIAL INFIL ONE (13:29)
[2017-07-09] MEDS ORDERED: INFLUENZA VACCINE HIGH DOSE 65+ 0.5 ML SYR IM. ONE (13:30)
[2017-07-09] MEDS ORDERED: INFLUENZA ADMINISTRATION CHARGE ONE (13:30)
[2017-07-09] MEDS: VORICONAZOLE IV SCH (14:11)
[2017-07-09] MEDS: SODIUM CHLORIDE 0.9% IV SCH (14:11)
--- NOTE | 2017-07-09 14:11 | DIAGNOSTIC IMAGING REPORT ---
CHEST 2 VIEWS ROUTINE CLINICAL HISTORY: 66 years-old Male presenting with Mucous/Pseudomembranes found on bronch. TECHNIQUE: PA and lateral views of the chest were obtained. COMPARISON: 03/18/2017. FINDINGS: Cardiomediastinal silhouette normal. Minimal left basilar opacity, unchanged. No new focal infiltrate. No acute effusion or pneumothorax. Osseous structures normal. Upper abdomen normal. IMPRESSION: 1. Persistent left basilar atelectasis or scarring. No new focal infiltrate. Electronically signed by: Domingo Peterson M.D. 07/09/2017 2:10 PM Dictated Date/Time: 07/09/2017 2:08 PM
--- NOTE | 2017-07-09 14:38 | Pharmacy Progress Note ---
Pharmacy Abx Initial Consult Date of Service Jul 09, 2017. Pharmacy Dosing Scope Date of Consult: 07/09/17 Consultation requested by: Talisha Caputo PA-C Pharmacy is consulted to initiate IV VANCOMYCIN + ZOSYN + VORICONAZOLE therapy, order appropriate labs and adjust drug dose/frequency. Subjective The patient is a 66 year old male admitted on Jul 09, 2017 at 10:29 for worsening cough + SOB, acute bronchiectasis, mucous plugging, diffuse mucoid membranous findings on bronchoscopy today. Objective Height (Feet): 6 Height (Inches): 1.00 Weight (Kilograms): 101.500 Vital Signs (Past 12Hrs) Vital Signs Past 12 Hours Date Time Temp Pulse Resp B/P (MAP) Pulse Ox O2 Delivery O2 Flow Rate FiO2 07/09/17 13:12 37.2 90 20 122/71 (88) 93 Nasal Cannula 07/09/17 12:40 87 20 111/66 (81) 94 Nasal Cannula 07/09/17 12:11 94 Nasal Cannula 4.0 07/09/17 11:46 Mask 07/09/17 11:00 86 20 115/59 92 Nasal Cannula 4 07/09/17 10:30 83 20 103/57 91 Nasal Cannula 4 07/09/17 10:05 83 20 112/49 95 Nasal Cannula 4 07/09/17 09:45 81 20 107/54 92 Nasal Cannula 4 07/09/17 09:26 83 24 116/59 92 Nasal Cannula 5 07/09/17 09:02 37.1 82 16 112/60 93 Nasal Cannula 6 07/09/17 08:55 83 16 118/63 93 Nasal Cannula 5.0 07/09/17 08:50 79 16 112/57 94 Mask 8.0 07/09/17 08:45 89 14 105/61 94 Mask 8.0 07/09/17 08:40 81 18 131/61 94 Mask 8.0 07/09/17 08:35 86 20 130/62 94 Mask 8.0 07/09/17 08:30 86 20 129/65 96 Mask 8.0 07/09/17 08:25 84 18 116/61 96 Mask 8.0 07/09/17 08:20 83 18 110/60 90 Nasal Cannula 2.0 07/09/17 07:45 36.8 90 28 106/60 91 Room Air 07/09/17 06:54 36.8 90 28 106/60 (27) 91 Room Air Micro Results Date/Time Source Procedure Growth Status 07/09/17 09:05 Bronchial Washings Right Lower Lobe Fungal Smear Pending Received 07/09/17 09:05 Bronchial Washings Right Lower Lobe Fungal Culture Pending Received 07/09/17 09:05 Bronchial Washings Right Lower Lobe Acid Fast Stain Pending Received 07/09/17 09:05 Bronchial Washings Right Lower Lobe Mycobacterial Culture Pending Received 07/09/17 09:05 Bronchial Washings Right Lower Lobe Gram Stain - Final Resulted 07/09/17 09:05 Bronchial Washings Right Lower Lobe Bronchoalveolar Lavage Culture Pending Resulted beta-1,3-D-glucan assay pending Aspergillus Ag pending HSV Cx pending CMV Cx pending 03/21/17: bronch wash: burkholderia cepacia: sensitive to Bactrim, intermediate to Levofloxacin, resistant to ceftazidime : bronch wash: saprophytic fungus Risk Factors for Resistance * Chronic steroid therapy for Crohn's dz * History of infection with a multidrug-resistant organism: burkholderia cepacia bronch washings 03/21/17 * Antimicrobial use within the last 90 days: Bactrim PO Assessment & Plan Assessment * 66 year old male admitted for cough, SOB, difficulty expectorating sputum * He has been on chronic steroid therapy for Crohn's disease and does have a h/ o of growing burkholderia cepacia in bronch washings as well as saprophytic fungi * Renal fxn appears to be near his baseline * He is currently afebrile, sat's in the 91-94 range on 4L NC * Multiple send-out diagnostic tests ordered (HSV cx, CMV cx, Aspergillus Ag, beta-1,3-D-glucan, etc). Plan Vancomycin IV * Loading dose: 2250 mg (22 mg/kg) x 1 * Maintenance dose: 1750 mg IV (14.8 mg/kg) every 12 hours * Goal trough level for pulmonary infxn : 15 to 20 mcg/mL * Trough level ordered for 07/11/17 with the 4th maintenance dose Piperacillin/tazobactam * 4.5 g bolus administered over 30 minutes, then 3.375 g IV extended infusion every 8 hours for CrCl greater than 20 mL/min Voriconazole * No adjustment required for current renal fxn at this time, eCrCl > 50cc/min * Will initiate IV therapy with 6mg/kg (600mg) IV Q 12 hrs x 2 doses, then step- down to 4mg/kg (400mg) IV Q 12 hrs Pharmacy will continue to follow and will adjust dose/frequency as necessary. Thank you.
[2017-07-09] MEDS: LOSARTAN POTASSIUM 50 MG TAB PO SCH (15:16)
[2017-07-09] MEDS: FUROSEMIDE 40 MG TAB PO SCH (15:17)
[2017-07-09] MEDS: CYANOCOBALAMIN 100 MCG TAB (VIT B-12) PO SCH (15:18)
[2017-07-09] MEDS: MULTIVITAMIN TAB PO SCH (15:18)
[2017-07-09] MEDS: ALBUTEROL 0.083% NEBU SOLN 3 ML VIAL INH PRN ×3 (15:36→23:57)
[2017-07-09] MEDS: APRISO~ORDER AWAITING ACTION SCH (16:43)
[2017-07-09] MEDS: PIPERACILL/TAZOBAC IV 3.375 GM in DEXTROSE 5% 100ML IV SCH (20:07)
[2017-07-09] MEDS: LEVOTHYROXINE 88 MCG TAB PO SCH (20:08)
[2017-07-09] MEDS: BUDESONIDE/FORMOTEROL FUMARATE 160/4.5 60 PUFFS/INHALER INH SCH (20:08)
[2017-07-09] MEDS: ZOLPIDEM TARTRATE 10 MG TAB PO SCH (20:48)
[2017-07-09] MEDS: COLESTIPOL HCL 1 GM TAB PO SCH (20:49)
[2017-07-09] MEDS ORDERED: VANCOMYCIN INJ 1,000 MG in SODIUM CHLORIDE 0.9% 250ML 250 ML IV SCH (21:00)
[2017-07-09] MEDS ORDERED: LOPERAMIDE HCL 2 MG CAP PO SCH (21:00)
[2017-07-09] MEDS: VANCOMYCIN INJ 1,750 MG in SODIUM CHLORIDE 0.9% 500ML 500 ML IV SCH (23:52)
[2017-07-10] MEDS: VORICONAZOLE IV SCH (00:54)
[2017-07-10] MEDS: SODIUM CHLORIDE 0.9% IV SCH (00:54)
[2017-07-10 04:00] VITALS: BP 99/62; PULSE 79; TEMP 37.2; O2SAT 93
[2017-07-10] MEDS: PIPERACILL/TAZOBAC IV 3.375 GM in DEXTROSE 5% 100ML IV SCH ×2 (04:29→12:12)
[2017-07-10] MEDS: HEPARIN SOD 5000 UNIT/0.5 ML CARP SQ SCH ×3 (05:57→22:02)
[2017-07-10 07:21] VITALS: BP 111/63; PULSE 79; TEMP 36.6; O2SAT 93
[2017-07-10 07:58] LABS: BASO % 0.4 %; BASO ABS # 0.03 K/uL (0-0.2); COMPLETE YES; HEMATOCRIT 36.4 % (42-52); IG% 0.3 %; LYMPH % 8.1 %; LYMPH ABS # 0.63 K/uL (1.2-3.4); MEAN CELL VOLUME 94.3 fL (80-100); MEAN CORPUSCULAR HEMOGLOBIN 31.6 pg (25-34); MEAN CORPUSCULAR HGB CONC 33.5 g/dl (32-36); MEAN PLATELET VOLUME 9.8 fL (7.4-10.4); MONO % 10.5 %; NEUT % 76.7 %; PLATELET COUNT 290 K/uL (130-400); RED BLOOD COUNT 3.86 M/uL (4.7-6.1); WHITE BLOOD COUNT 7.78 K/uL (4.8-10.8)
[2017-07-10] MEDS: APRISO~ORDER AWAITING ACTION SCH ×4 (08:00→23:05)
[2017-07-10] MEDS: TIOTROPIUM BROMIDE 5 PUFF/90 MCG INH INH SCH (08:13)
[2017-07-10] MEDS: BUDESONIDE/FORMOTEROL FUMARATE 160/4.5 60 PUFFS/INHALER INH SCH ×2 (08:13→21:58)
[2017-07-10] MEDS: MULTIVITAMIN TAB PO SCH (08:14)
[2017-07-10] MEDS: FUROSEMIDE 40 MG TAB PO SCH (08:14)
[2017-07-10] MEDS: CYANOCOBALAMIN 100 MCG TAB (VIT B-12) PO SCH (08:15)
[2017-07-10] MEDS: LOSARTAN POTASSIUM 50 MG TAB PO SCH (08:15)
[2017-07-10 08:42] LABS: BUN/CREATININE RATIO 12.3 (10-20); CALCIUM 8.6 mg/dl (8.5-10.1); MAGNESIUM 2.2 mg/dl (1.8-2.4); POTASSIUM 4.1 mmol/L (3.5-5.1)
[2017-07-10] MEDS: COLESTIPOL HCL 1 GM TAB PO SCH ×2 (10:22→21:59)
[2017-07-10 11:31] VITALS: BP 121/66; PULSE 82; TEMP 36.5; O2SAT 92
[2017-07-10] MEDS: VANCOMYCIN INJ 1,750 MG in SODIUM CHLORIDE 0.9% 500ML 500 ML IV SCH (12:12)
[2017-07-10] MEDS ORDERED: SODIUM CHLORIDE 0.9% IV SCH (12:30)
[2017-07-10] MEDS ORDERED: VORICONAZOLE IV SCH (12:30)
--- NOTE | 2017-07-10 12:39 | Pulmonology Progress Note ---
Pulmonary Progress Note Date of Service Jul 10, 2017. Attending Dr. Arevalo Subjective Patient seen and examined at beside. He is feeling much better, still not at baseline He denies any chest pain. Still having cough. Overall feeing better and would like to go home. Ambulating to bathroom without assistance. No events noted by hospital staff overnight. Objective VS reviewed. Tm 37.2, P 99/62, BP 121/66, RR 20, SaO2 92-93%, 2L NC Gen: AAOx3, NAD, speaking in full sentences w/o use of accessory muscles of respiration CVS: S1, S2, RRR Lungs: coarse breath sounds bilaterally Abd: soft/NT/ND/BS+ Ext: no edema bilaterally, no cyanosis, no clubbing Labs reviewed. MICRO: RLL Bronchial washing culture 07/09/2017--growing Moraxella catarrhalis RLL Bronchial washing AFB 07/09/2017:stain-- no AFB seen, culture--pending RLL Bronchial washing Fungal 07/09/2017: smear--no yeast or hyphae seen culture pending CMV, HSV, galatomannan, Fungitell serology pending PATH: pending Imaging reviewed and viewed by me. Medications reviewed. From a respiratory standpoint he is on Spriva handihaler 1 puff daily, Vancomycin 1, 750 q12h, Symbicort 160/4.5 2 puff BID Zosyn 3.375 q8h, albuterol 2 puff q4-6 h prn. Assessment & Plan COPD ADELAIDA Bronchiectasis Tracheitis He was admitted for pseudomembranous findings on trachea and to rule out infectious etiologies. He as started on empiric antibiotics to to pending microbiological findings. Bronchial washings culture and have grown Moraxella catarrhalis. Fungal cultures and AFB cultures are still pending.f/u Fungitell and Galactomannan--pending At this time, I would deescalate antibiotics. A third generation cephalosporin should cover. Consider ID consult for further recommendations. Continue O2 supplementation to keep SaO2 >88%. Continue outpatient pulmonary medications- Duoneb, Pulmozyme, Spiriva, Symbicort Continue chest PT vest and aggressive pulmonary toilet. Will order vest while inpatient along with flutter valve. I think he is clinically stable. I would obtain 2 step prior to discharge. He is on nocturnal oxygen. He should follow up with Dr. Alamo within 5-7 days post hospital discharge. Data Medications: Current Inpatient Medications Medications (Trade) Dose Ordered Sig/Jeffery Route Start Time Stop Time Status Last Admin Dose Admin Heparin Sodium (Porcine) (Heparin Sq 5000 Unit/0.5ml) 5,000 unit Q8 SQ 07/09/17 14:00 08/08/17 13:59 07/10/17 05:57 5,000 UNIT Acetaminophen (Tylenol Tab) 650 mg Q4H PRN PO 07/09/17 10:30 08/08/17 10:29 Magnesium Hydroxide (Milk Of Magnesia Susp) 30 ml Q12H PRN PO 07/09/17 10:30 08/08/17 10:29 Ondansetron HCl (Zofran Inj) 4 mg Q6H PRN IV 07/09/17 10:30 08/08/17 10:29 Polyethylene (Miralax Powder Packet) 17 gm DAILY PRN PO 07/09/17 10:30 08/08/17 10:29 Albuterol Sulfate (Ventolin 0.083% 2.5MG/3ML Neb) 2.5 mg Q4 PRN INH 07/09/17 10:30 08/08/17 10:29 07/09/17 23:57 2.5 MG Budesonide/ Formoterol Fumarate (Symbicort 160/ 4.5 Inh) 2 puffs BID INH 07/09/17 21:00 08/08/17 20:59 07/10/17 08:13 2 PUFFS Colestipol HCl (Colestid Tab) 1 gm BID@1000,2200 PO 07/09/17 22:00 08/08/17 21:59 07/10/17 10:22 1 GM Cyanocobalamin (Vitamin B-12 Tab) 100 mcg DAILY PO 07/10/17 09:00 08/09/17 08:59 07/10/17 08:15 100 MCG Furosemide (Lasix Tab) 40 mg DAILY PO 07/10/17 09:00 08/09/17 08:59 07/10/17 08:14 40 MG Levothyroxine Sodium (Synthroid Tab) 88 mcg QPM PO 07/09/17 21:00 08/08/17 20:59 07/09/17 20:08 88 MCG Losartan Potassium (coZAAR TAB) 50 mg DAILY PO 07/10/17 09:00 08/09/17 08:59 07/10/17 08:15 50 MG Multivitamins (Multivitamin Tab) 1 tab DAILY PO 07/10/17 09:00 08/09/17 08:59 07/10/17 08:14 1 TAB Tiotropium [place] (Spiriva Handihaler Inhaler) 1 puff QAM INH 07/10/17 09:00 08/09/17 08:59 07/10/17 08:13 1 PUFF Zolpidem Tartrate (Ambien Tab) 10 mg HS PO 07/09/17 21:00 08/08/17 20:59 07/09/17 20:48 10 MG Albuterol (Ventolin Hfa Inhaler) 2 puffs QID PRN INH 07/09/17 12:30 08/08/17 12:29 Miscellaneous Information (Order Awaiting Action) 1 ea QS N/A 07/09/17 16:00 08/08/17 15:59 Vancomycin HCl (Consult) 1 ea UD PRN N/A 07/09/17 11:00 08/08/17 10:59 Piperacillin Sod/ Tazobactam Sod (Consult) 1 ea UD PRN N/A 07/09/17 11:00 08/08/17 10:59 Miscellaneous (Iv Fluids Completed) 1 ea PRN PRN N/A 07/09/17 12:30 07/09/18 12:29 Miscellaneous Information 1 ea UD PRN N/A 07/09/17 12:30 08/08/17 12:29 Voriconazole 400 mg/Sodium Chloride 250 ml @ 125 mls/hr Q12H IV 07/10/17 12:30 07/17/17 12:29 Vancomycin HCl 1750 mg/Sodium Chloride 535 ml @ 200 mls/hr Q12H IV 07/10/17 00:00 07/17/17 00:00 07/09/17 23:52 200 MLS/HR Piperacillin Sod/ Tazobactam Sod 3.375 gm/Dextrose 115 ml @ 28.75 mls/ hr Q8H IV 07/09/17 20:00 07/16/17 19:59 07/10/17 04:29 28.75 MLS/HR Vital Signs: Date Time Temp Pulse Resp B/P (MAP) Pulse Ox O2 Delivery O2 Flow Rate FiO2 07/10/17 11:44 Nasal Cannula 2.0 07/10/17 11:31 36.5 82 20 121/66 (84) 92 Nasal Cannula 2.0 07/10/17 08:00 Nasal Cannula 2.0 07/10/17 07:21 36.6 79 20 111/63 (79) 93 Nasal Cannula 2.0 07/10/17 04:00 37.2 79 20 99/62 (74) 93 2.0 07/10/17 04:00 Nasal Cannula 2.0 07/10/17 00:05 Nasal Cannula 2.0 07/09/17 23:57 89 22 94 Nasal Cannula 2.0 07/09/17 23:46 37.0 87 20 109/60 (76) 94 2.0 07/09/17 20:14 103 20 93 Nasal Cannula 2.0 07/09/17 20:05 Nasal Cannula 2.0 07/09/17 20:04 37.0 92 18 113/67 (82) 91 2.0 07/09/17 16:00 Nasal Cannula 2.0 07/09/17 15:37 69 20 95 Nasal Cannula 2.0 07/09/17 15:03 36.6 90 20 113/70 (84) 95 Nasal Cannula 2.0 07/09/17 13:12 37.2 90 20 122/71 (88) 93 Nasal Cannula 07/09/17 12:40 87 20 111/66 (81) 94 Nasal Cannula 07/09/17 12:11 94 Nasal Cannula 4.0 Laboratory Results: Last 24 Hours Test 07/09/17 12:14 07/10/17 07:31 Creatinine 0.96 mg/dl 1.00 mg/dl Est Creatinine Clear Calc Drug Dose 94.8 ml/min 90.2 ml/min Estimated GFR () 95.1 90.5 Estimated GFR (Non- 82.0 78.1 White Blood Count 7.78 K/uL Red Blood Count 3.86 M/uL Hemoglobin 12.2 g/dL Hematocrit 36.4 % Mean Corpuscular Volume 94.3 fL Mean Corpuscular Hemoglobin 31.6 pg Mean Corpuscular Hemoglobin Concent 33.5 g/dl Platelet Count 290 K/uL Mean Platelet Volume 9.8 fL Neutrophils (%) (Auto) 76.7 % Lymphocytes (%) (Auto) 8.1 % Monocytes (%) (Auto) 10.5 % Eosinophils (%) (Auto) 4.0 % Basophils (%) (Auto) 0.4 % Neutrophils # (Auto) 5.97 K/uL Lymphocytes # (Auto) 0.63 K/uL Monocytes # (Auto) 0.82 K/uL Eosinophils # (Auto) 0.31 K/uL Basophils # (Auto) 0.03 K/uL RDW Standard Deviation 52.8 fL RDW Coefficient of Variation 15.3 % Immature Granulocyte % (Auto) 0.3 % Immature Granulocyte # (Auto) 0.02 K/uL Sodium Level 136 mmol/L Potassium Level 4.1 mmol/L Chloride Level 103 mmol/L Carbon Dioxide Level 27 mmol/L Anion Gap 6.0 mmol/L Blood Urea Nitrogen 12 mg/dl BUN/Creatinine Ratio 12.3 Random Glucose 117 mg/dl Calcium Level 8.6 mg/dl Magnesium Level 2.2 mg/dl
--- NOTE | 2017-07-10 13:37 | Hospitalist Progress Note ---
Hospitalist Progress Note Date of Service Jul 10, 2017. Subjective Pt evaluation today including: conversation w/ patient, physical exam, chart review, lab review, review of studies Pain: None PO Intake: Good Voiding: no voiding problems The patient was seen and examined this morning. Pt reports feeling pretty well. He has been ambulating about the hallways without difficulty. He reports still coughing but that theres not nearly as much mucous now. Discussion was held with pulmonology regarding de-escalation of antibiotics. Will ask ID about recs. Constitutional: No fever, No chills, No sweats, No fatigue Eyes: No redness, No diplopia ENT: No nasal symptoms, No trouble swallowing Respiratory: + see HPI, + cough, + sputum, No wheezing, No shortness of breath, No dyspnea on exertion Cardiovascular: No chest pain, No edema Abdomen: No pain, No nausea, No vomiting, No diarrhea, No constipation Musculoskeletal: No joint pain, No swelling Male : No dysuria Neurologic: No weakness, No numbness/tingling Psychiatric: No depression symptoms Endo: No fatigue Skin: No rash, No itch Objective Vital Signs Date Time Temp Pulse Resp B/P (MAP) Pulse Ox O2 Delivery O2 Flow Rate FiO2 07/10/17 11:44 Nasal Cannula 2.0 07/10/17 11:31 36.5 82 20 121/66 (84) 92 Nasal Cannula 2.0 07/10/17 08:00 Nasal Cannula 2.0 07/10/17 07:21 36.6 79 20 111/63 (79) 93 Nasal Cannula 2.0 07/10/17 04:00 37.2 79 20 99/62 (74) 93 2.0 07/10/17 04:00 Nasal Cannula 2.0 07/10/17 00:05 Nasal Cannula 2.0 07/09/17 23:57 89 22 94 Nasal Cannula 2.0 07/09/17 23:46 37.0 87 20 109/60 (76) 94 2.0 07/09/17 20:14 103 20 93 Nasal Cannula 2.0 07/09/17 20:05 Nasal Cannula 2.0 07/09/17 20:04 37.0 92 18 113/67 (82) 91 2.0 07/09/17 16:00 Nasal Cannula 2.0 07/09/17 15:37 69 20 95 Nasal Cannula 2.0 07/09/17 15:03 36.6 90 20 113/70 (84) 95 Nasal Cannula 2.0 Physical Exam Notes: General Appearance: WD/WN, no apparent distress Head: normocephalic, atraumatic Eyes: PERRL, EOMI, + pertinent finding (oral mucosa without white exudate, MMM) ENT: hearing grossly normal, pharynx normal Neck: supple, no JVD Respiratory/Chest: + pertinent finding (On 2 L via NC, + cough with less yellow sputum production, + coarse rales throughout s/p bronchoscopy, sounds clear in the STEPHEN, no wheeze.) Cardiovascular: regular rate, rhythm, no murmur, normal peripheral pulses Abdomen/GI: normal bowel sounds, non tender, soft Back: normal inspection Extremities/Musculoskelatal: normal inspection, no calf tenderness, +1 pitting edema in the LLE Neurologic/Psych: alert, normal mood/affect, oriented x 3 Skin: normal color, warm/dry Laboratory Results Last 24 Hours Test 07/10/17 07:31 White Blood Count 7.78 K/uL Red Blood Count 3.86 M/uL Hemoglobin 12.2 g/dL Hematocrit 36.4 % Mean Corpuscular Volume 94.3 fL Mean Corpuscular Hemoglobin 31.6 pg Mean Corpuscular Hemoglobin Concent 33.5 g/dl Platelet Count 290 K/uL Mean Platelet Volume 9.8 fL Neutrophils (%) (Auto) 76.7 % Lymphocytes (%) (Auto) 8.1 % Monocytes (%) (Auto) 10.5 % Eosinophils (%) (Auto) 4.0 % Basophils (%) (Auto) 0.4 % Neutrophils # (Auto) 5.97 K/uL Lymphocytes # (Auto) 0.63 K/uL Monocytes # (Auto) 0.82 K/uL Eosinophils # (Auto) 0.31 K/uL Basophils # (Auto) 0.03 K/uL RDW Standard Deviation 52.8 fL RDW Coefficient of Variation 15.3 % Immature Granulocyte % (Auto) 0.3 % Immature Granulocyte # (Auto) 0.02 K/uL Sodium Level 136 mmol/L Potassium Level 4.1 mmol/L Chloride Level 103 mmol/L Carbon Dioxide Level 27 mmol/L Anion Gap 6.0 mmol/L Blood Urea Nitrogen 12 mg/dl Creatinine 1.00 mg/dl Est Creatinine Clear Calc Drug Dose 90.2 ml/min Estimated GFR () 90.5 Estimated GFR (Non- 78.1 BUN/Creatinine Ratio 12.3 Random Glucose 117 mg/dl Calcium Level 8.6 mg/dl Magnesium Level 2.2 mg/dl Assessment and Plan 66 yo M with PMHx of COPD, CAP, aspiration pneumonia, hx of candidiasis, Crohns disease, diverticulosisi, hypothyroidism, obstructive sleep apnea and current bronchiectasis and history of diffuse mucus plugging requiring mechanical/ bronchoscopic removal completed by Dr Alamo on 07/09. 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 During bronchoscopy diffuse mucoid membranous findings more prominent in the right, but concerning for other infectious etiology, including aspergillus per discussion with Dr. Alamo. Shortness of breath COPD CAP Hx of burkholderia cepacia (ie pseudomonas) S/p bronchoscopy by Dr. Alamo on 07/09/17 - Bronchoscopy culture results growing Moraxella catarrahalis, fungal cx in process as there is concern for aspergillus - Pulm recommending de-escalation of abx to possible third gen cephalosporin. - asking for ID input.- ID consulted - Continue O2 at needed - Continue inhalers as ordered - Start on viorconazole 6 mg/kg Q12H x 24 hours then decrease to 4 mg/kg Q12H afterwards, also cover with zosyn and vanc - continue for now Crohns - Noted, no active flare, continue mesalamine 4 cap po daily HTN - Continue Lasix 40 mg daily, losartan 50 mg HLD - continue colestipol 1 g BID Hypothyroidism - Continue levothyroxine 88 mcg Insomnia - Continue ambien 10 mg QHS for sleep DVT ppx: teds, scds, heparin subq CODE STATUS: FULL CODE Disposition: From home, d/c likely within 24 hours pending ID recs.
--- NOTE | 2017-07-10 15:18 | Progress Note ---
Progress Note Date of Service Jul 10, 2017. Progress Note ID Consult Dictated #[id number] A/P: 1. CAP -Can change to po levaquin 500mg po x 10 salgado, afb fungal smear negative -pt asking to go home, no contraindication when otherwise stable -thank you
[2017-07-10 15:26] VITALS: BP 111/67; PULSE 79; TEMP 36.5; O2SAT 91
[2017-07-10] MEDS ORDERED: LEVO-366 PO (15:43)
--- NOTE | 2017-07-10 15:53 | Discharge Instructions ---
Discharge Instructions Date of Service Jul 10, 2017. Admission Reason for Admission: S/P Bronchoscopy With Bronchoalveolar Lavage Discharge Discharge Diagnosis / Problem: Bronchoscopy with bronchoalveolar lavage Discharge Goals Goal(s): Decrease discomfort, Improve function, Increase independence, Improve disease control Activity Recommendations Activity Limitations: resume your previous activity Lifting Limitations: no more than 25 pounds, gradually increase as tolerated Exercise/Sports Limitations: rest today May Resume Sexual Activity: when tolerated Shower/Bathe: no limitations Driving or Machine Use: resume 3 days after discharge (and after follow up with PCP) . Instructions / Follow-Up Instructions / Follow-Up You were admitted to [facility] after Bronchoscopy for observation. During your stay here you were treated with intravenous antibiotics and antifungal prophylactically during your observation. Pulmonary cultures grew out Moraxella catarrahalis. Infectious disease was consulted and recommended a 10 day antibiotic course with Levaquin 500 mg daily. Your breathing improved with supportive treatment. Medications: Continue antibiotic: Levaquin 500 mg daily x 8 more days to complete a 10 day course- your last dose will be on 07/19/17. Appointments: Follow up with your Primary Care Provider within 1 month. Follow up with Pulmonology within 2 weeks as already scheduled with Reinaldo Martinez. Current Hospital Diet Patient's current hospital diet: AHA Diet (Heart Healthy) Discharge Diet Recommended Diet: AHA Diet (Heart Healthy) Procedures Procedures Performed: Bronchoscopy Pending Studies Studies pending at discharge: no Medical Emergencies . Who to Call and When: Medical Emergencies: If at any time you feel your situation is an emergency, please call 911 immediately. . Non-Emergent Contact Non-Emergency issues call your: Primary Care Provider, Patient Support Specialist Call Non-Emergent contact if: you have a fever, temperature is above 100.5, your pain is not controlled, your pain is worsening, your pain is unusual for you, your pain is concerning you, you have any medication questions other concerns with your health. Call 911 or go directly to the Emergency Department if you experience any of the following: Chest pain, chest tightness, shortness of breath, abdominal pain , lightheadedness, dizziness, gastrointestinal bleeding, or have any other concerns regarding your health. . . "Provider Documentation" section prepared by Marimar Caputo. . VTE Core Measure Inpt VTE Proph given/why not?: Unfractionated heparin SQ, T.E.D. Stockings, SCD 's
--- NOTE | 2017-07-10 16:01 | INFECT. DISEASE CONSULTATION ---
DATE OF CONSULTATION: 07/10/2017 DATE OF CONSULTATION: 07/10/2017 REQUESTING PHYSICIAN: Dr. Conley. HISTORY OF PRESENT ILLNESS: This is a 66-year-old gentleman who was admitted after he had bronchoscopy for further antibiotic therapy. He was placed on vancomycin, Zosyn and voriconazole. He recently was diagnosed with Crohn's disease and has been on medication for this. He developed increasing cough with productive sputum. He denies any hemoptysis. Because of this, he did undergo bronchoscopy on the . His bronchoscopy culture is growing Moraxella. No sensitivities have been done. AFB and fungal smear are negative. Cultures are pending. A chest x-ray was negative. He has been afebrile without leukocytosis. He currently is using nasal cannula oxygen and states that he does use oxygen at night secondary to sleep apnea. He denies any fevers or chills. He still has some productive cough, but overall states it is better. He is asking to go home. Infectious diseases was consulted for discharge antibiotics. All remaining review of systems are reviewed and unremarkable. PAST MEDICAL HISTORY: Significant for bronchitis, emphysema, hypertension, Crohn's disease, diverticulosis, hypothyroidism, sleep apnea on chronic oxygen at night. FAMILY HISTORY: Noncontributory. SOCIAL HISTORY: Negative for current tobacco use, although he does have a history of former use. He denies any alcohol or drug use. He is and lives with his family. He denies any sick contacts. ALLERGIES: He has no known drug allergies. CURRENT MEDICATIONS: Include Voriconazole, vitamin B, Lasix, Cozaar, multivitamins, Spiriva, vancomycin, Symbicort, Synthroid, Ambien, subQ heparin, Ventolin, Tylenol, milk of magnesia, Zofran, MiraLax. PHYSICAL EXAMINATION: VITAL SIGNS: She is afebrile, pulse 82, respiratory rate 20, blood pressure 121/66. Oxygen saturation is 92-93% on 2 liters nasal cannula. GENERAL: He is awake, alert and oriented x3. She is in no acute distress. HEAD, EYES, EARS, NOSE, AND THROAT: Mucous membranes are moist. Extraocular muscles are intact. Breath sounds are coarse bilaterally. There is no expiratory wheeze. HEART: Regular. ABDOMEN: Soft, nontender, nondistended. There is no edema. SKIN: Without rash. LABORATORY STUDIES: CBC today reveals a white blood cell count of 7.7, hemoglobin 12.2, platelets are 290. Chemistry panel: Sodium 136, potassium 4.1, chloride 103, bicarb 27, BUN 12, creatinine 1, glucose 117. Micro again reveals Moraxella from routine culture, AFB and fungal cultures are pending, but smears are negative. Chest x-ray is as above. ASSESSMENT AND PLAN: Community-acquired pneumonia. He certainly could be transitioned to oral levofloxacin 500 mg daily to complete a 10-day course. I do not see any contraindication for discharge when otherwise medically stable. Thank you for this consultation.
[2017-07-10 16:09] VITALS: BP 142/94; PULSE 97; TEMP 36.8; O2SAT 94
[2017-07-10] MEDS ORDERED: NURSING VERBAL MED ORDER ONE (17:30)
[2017-07-10] MEDS: BENZONATATE 100MG CAP PO PRN ×2 (18:01→22:00)
[2017-07-10 19:25] VITALS: BP 122/77; PULSE 87; TEMP 36.8; O2SAT 93
[2017-07-10] MEDS: LEVOTHYROXINE 88 MCG TAB PO SCH (21:58)
[2017-07-10] MEDS: ZOLPIDEM TARTRATE 10 MG TAB PO SCH (22:05)
[2017-07-11 00:23] VITALS: BP 149/75; PULSE 91; TEMP 36.7; O2SAT 91
[2017-07-11 04:00] VITALS: BP 109/69; PULSE 86; TEMP 36.9; O2SAT 90
[2017-07-11] MEDS: HEPARIN SOD 5000 UNIT/0.5 ML CARP SQ SCH (06:02)
[2017-07-11 07:54] VITALS: BP 112/70; PULSE 73; TEMP 36.6; O2SAT 94
[2017-07-11 08:00] VITALS: O2SAT 94
[2017-07-11] MEDS: APRISO~ORDER AWAITING ACTION SCH (08:00)
[2017-07-11 08:11] LABS: BASO % 0.5 %; BASO ABS # 0.03 K/uL (0-0.2); COMPLETE YES; EOS % 4.7 %; HEMATOCRIT 37.4 % (42-52); IG% 0.3 %; LYMPH % 5.6 %; LYMPH ABS # 0.37 K/uL (1.2-3.4); MEAN CORPUSCULAR HEMOGLOBIN 30.7 pg (25-34); MEAN CORPUSCULAR HGB CONC 32.6 g/dl (32-36); MONO % 12.5 %; NEUT % 76.4 %; PLATELET COUNT 297 K/uL (130-400); RED BLOOD COUNT 3.98 M/uL (4.7-6.1); WHITE BLOOD COUNT 6.55 K/uL (4.8-10.8)
[2017-07-11] MEDS: TIOTROPIUM BROMIDE 5 PUFF/90 MCG INH INH SCH (08:45)
[2017-07-11] MEDS: BUDESONIDE/FORMOTEROL FUMARATE 160/4.5 60 PUFFS/INHALER INH SCH (08:46)
[2017-07-11] MEDS: CYANOCOBALAMIN 100 MCG TAB (VIT B-12) PO SCH (08:47)
[2017-07-11] MEDS: MULTIVITAMIN TAB PO SCH (08:47)
[2017-07-11] MEDS: FUROSEMIDE 40 MG TAB PO SCH (08:47)
[2017-07-11] MEDS: BENZONATATE 100MG CAP PO PRN (08:47)
[2017-07-11] MEDS: LOSARTAN POTASSIUM 50 MG TAB PO SCH (08:48)
[2017-07-11 08:52] LABS: BUN/CREATININE RATIO 10.9 (10-20); CALCIUM 8.9 mg/dl (8.5-10.1); CREATININE 0.9 mg/dl (0.60-1.40)
[2017-07-11] MEDS ORDERED: LEVO-366 PO (10:48)
[2017-07-11] MEDS ORDERED: LEVOFLOXACIN 500 MG TAB PO SCH (11:00)
[2017-07-11] MEDS: COLESTIPOL HCL 1 GM TAB PO SCH (11:04)
[2017-07-11] MEDS ORDERED: VANCOMYCIN TROUGH ONE (11:30)
[2017-07-11 12:00] VITALS: O2SAT 94
[2017-07-11 12:09] VITALS: BP 112/70; PULSE 73; TEMP 36.6; O2SAT 94
--- NOTE | 2017-07-11 13:56 | Discharge Summary ---
Discharge Summary Date of Service Jul 11, 2017. Discharge Summary Admission Date: Jul 09, 2017 at 10:29 Discharge Date: Jul 11, 2017 Discharge Disposition: Home with services Principal Diagnosis: s/p Bronchoscopy, + moraxella catarrahlis cultures Problems/Secondary Diagnoses: COPD CAP aspiration pneumonia hx of candidiasis Crohns disease diverticulosis hypothyroidism obstructive sleep apnea bronchiectasis history of diffuse mucus plugging Procedures: Bronchoscopy 07/[address] Alamo Procedure: Bronchoscopy, conscious sedation, Consent: Obtained through the patient placed into the chart Pre-procedural diagnosis: Chronic cough Post-procedural diagnosis: Pseudomembranous tracheal-bronchitis Start time: 827 End time: 50 Total time: 22minutes Analgesia: 2% liquid lidocaine: Via nebulizer 4% gel lidocaine: Via right naris 2% liquid lidocaine: Via bronchoscopy Sedation: Versed IV: 5mg Fentanyl IV: 125 g Procedure: The OncoEthix video bronchoscope was used for this procedure and passed down through the right naris Right naris/posterior naris/posterior oropharynx: Diffuse mucous secretions at the opening/oximeter right naris Glottis: Anatomically within normal limits, diffuse mucous secretions appreciated on the glottis Vocal cords: Proper abduction and abduction, anatomically within normal limits Subglottis/trachea/Beth: There is pseudomembranous changes along the trachea as well as beth Right bronchial tree: Right mainstem bronchus: Mild pseudomembranous changes Right upper lobe: Anatomically within normal limits Bronchus intermedius: Mild pseudomembranous changes Right middle lobe: Diffuse erythema Right lower lobe: Diffuse erythema and notable mucous plugging Findings: Mild pseudomembranous changes with diffuse erythema mucous plugging Left bronchial tree: Left mainstem bronchus: Mild pseudomembranous changes Left upper lobe: Erythema with diffuse mucus plugs Lingula: Erythema with diffuse mucus plugs Left lower lobe: Erythema with diffuse mucus plugs Findings: Erythema with diffuse mucus plugs Bronchial washing lavage: Right lower lobe EBL: None Complications: None Follow-up: Patient requires admission CHEST 2 VIEWS ROUTINE CLINICAL HISTORY: 66 years-old Male presenting with Mucous/Pseudomembranes found on bronch. TECHNIQUE: PA and lateral views of the chest were obtained. COMPARISON: 03/18/2017. FINDINGS: Cardiomediastinal silhouette normal. Minimal left basilar opacity, unchanged. No new focal infiltrate. No acute effusion or pneumothorax. Osseous structures normal. Upper abdomen normal. IMPRESSION: 1. Persistent left basilar atelectasis or scarring. No new focal infiltrate. Electronically signed by: Domingo Peterson M.D. 07/09/2017 2:10 PM Dictated Date/Time: 07/09/2017 2:08 PM The status of this report is Signed. Consultations: Pulmonology Infectious disease Medication Reconciliation New Medications: Levofloxacin (Levaquin) 500 Mg Tab 500 MG PO DAILY for 8 Days, #8 TAB Continued Medications: Albuterol Sulf (Proventil 0.083% 2.5MG/3ML) 2.5 Mg/3 Ml Nebu 2.5 MG INH Q4 PRN for Shortness of Breath, EA Albuterol Sulfate (Proair Respiclick) 108 Mcg/Act Aer 2 PUFFS INH QID PRN for SOB/Wheezing Benzonatate (Tessalon Perles) 100 Mg Cap 1 CAP PO TID PRN for Cough for 10 Days, #30 CAP Budesonide/Formoterol Fumarate (Symbicort 160/4.5 Inhaler) 120 Puffs/ Aero 2 PUFF INH BID, #30 Colestipol Hcl (Colestipol Hcl) 1 Gm Tab 1 GM PO BID Cyanocobalamin (Vitamin B-12) 100 Mcg Tab 100 MCG PO DAILY, TAB Dornase Robin (Pulmozyme) 1 Mg/Ml Luz Maria 1 INHA INH BID Furosemide (Lasix) 40 Mg Tab 40 MG PO DAILY, TAB Home O2 Therapy (Oxygen) Gas 2 LITERS NA HS, BTL Ipratropium-Albuterol (Duoneb) 3 Ml Nebu 1 TREATMENT INH TID, INHA Levothyroxine Sodium (Synthroid) 88 Mcg Tab 88 MCG PO QPM, #90 Losartan Potassium (Losartan Potassium) 50 Mg Tab 50 MG PO DAILY Mesalamine (Apriso) 0.375 Gm Cap 4 CAP PO DAILY Multivitamin (Multivitamin) Tab 1 TAB PO DAILY, TAB Nystatin (Nystatin Suspension) 1 Ml Susp 5 ML PO TID Tiotropium Randolph (Spiriva Handihaler) 5 Puff/90 Mcg Aerp 1 PUFF INH QAM Zolpidem Tartrate (Ambien) 10 Mg Tab 10 MG PO HS, TAB Discharge Exam The patient was seen and examined this morning. Pt reports doing very well. His breathing has improved- coughing some and bringing up mucous but much less than prior to bronch. he has been ambulating about the halls without difficulty or sob. He is eating well, bowels are moving, no other acute complaints. He is anticipating discharge today. ROS: Constitutional: No fever, No chills, No sweats, No fatigue Eyes: No redness, No diplopia ENT: No nasal symptoms, No trouble swallowing Respiratory: + see HPI, + cough, + sputum, No wheezing, No shortness of breath, No dyspnea on exertion Cardiovascular: No chest pain, No edema Abdomen: No pain, No nausea, No vomiting, No diarrhea, No constipation Musculoskeletal: No joint pain, No swelling Male : No dysuria Neurologic: No weakness, No numbness/tingling Psychiatric: No depression symptoms Endo: No fatigue Skin: No rash, No itch Physical Exam General Appearance: WD/WN, no apparent distress Head: normocephalic, atraumatic Eyes: PERRL, EOMI, + pertinent finding (oral mucosa without white exudate, MMM) ENT: hearing grossly normal, pharynx normal Neck: supple, no JVD Respiratory/Chest: + pertinent finding (On 2 L via NC, + cough with some white sputum production, + coarse rales in the posterior RLL and RML s/p bronchoscopy , Clear in the anterior RUL, sounds clear in the STEPHEN and improved at the left base. no wheeze or crackles.) Cardiovascular: regular rate, rhythm, no murmur, normal peripheral pulses Abdomen/GI: normal bowel sounds, non tender, soft Back: normal inspection Extremities/Musculoskeletal: normal inspection, no calf tenderness, mild pitting edema in the left ankle(improved) Neurologic/Psych: alert, normal mood/affect, oriented x 3 Skin: normal color, warm/dry Hospital Course History of Present Illness Source: patient, family 66 yo M with PMHx of COPD, CAP, aspiration pneumonia, hx of candidiasis, Crohns disease, diverticulosisi, hypothyroidism, obstructive sleep apnea and current bronchiectasis and history of diffuse mucus plugging requiring mechanical/ bronchoscopic removal completed by Dr Alamo on 07/09. 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 During bronchoscopy diffuse mucoid membranous findings more prominent in the right, but concerning for other infectious etiology, including aspergillus per discussion with Dr. Alamo. The patient and his were seen in surgery holding unit. He reports worsening shortness of breath over the past few weeks despite aggressive use of inhalers, vibration vest and anti-mucolytic agents. He has been coughing yellow thick mucous, denies any blood or other tint of color, multiple times daily. Even when he laughs he ends up coughing. He has been able to climb 2 flights of stairs in his home without difficulty however. He denies any issues with bowel recently. Although notes he was recently taken off an immunosuppresant for his Crohns disease due to pulmonary history and his risk for infection. PE: General Appearance: WD/WN, no apparent distress Head: normocephalic, atraumatic Eyes: PERRL, EOMI, + pertinent finding (oral mucosa without white exudate, MMM) ENT: hearing grossly normal, pharynx normal Neck: supple, no JVD Respiratory/Chest: + pertinent finding (On 4 L via NC, + cough with yellow sputum production, + coarse rales throughout s/p bronchoscopy, no wheeze.) Cardiovascular: regular rate, rhythm, no murmur, normal peripheral pulses Abdomen/GI: normal bowel sounds, non tender, soft Back: normal inspection Extremities/Musculoskelatal: normal inspection, no calf tenderness, no pedal edema Neurologic/Psych: alert, normal mood/affect, oriented x 3 Skin: normal color, warm/dry Hospital Course: 66 yo M with PMHx of COPD, CAP, aspiration pneumonia, hx of candidiasis, Crohns disease, diverticulosisi, hypothyroidism, obstructive sleep apnea and current bronchiectasis and history of diffuse mucus plugging requiring mechanical/ bronchoscopic removal completed by Dr Alamo on 07/09. 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 During bronchoscopy diffuse mucoid membranous findings more prominent in the right, but concerning for other infectious etiology, including aspergillus per discussion with Dr. Alamo. Shortness of breath COPD CAP Hx of burkholderia cepacia (ie pseudomonas) S/p bronchoscopy by Dr. Alamo on 07/09/17 - Bronchoscopy culture results growing Moraxella catarrahalis, fungal smear negative, neg AFB. - ID on board- de-escalated antibiotics to Levaquin 500 mg x 10 day course - will finish last dose on 07/19 - - Initially was on viorconazole 6 mg/kg Q12H x 24 hours then decrease to 4 mg/kg Q12H afterwards, zosyn and vanc x 24 hours. - Continue O2 at needed - Continue inhalers as ordered Crohns - Noted, no active flare, continue mesalamine 4 cap po daily HTN - Continue Lasix 40 mg daily, losartan 50 mg HLD - continue colestipol 1 g BID Hypothyroidism - Continue levothyroxine 88 mcg Insomnia - Continue ambien 10 mg QHS for sleep DVT ppx: teds, scds, heparin subq CODE STATUS: FULL CODE Disposition: From home, d/c to home today Total Time Spent: Greater than 30 minutes This includes examination of the patient, discharge planning, medication reconciliation, and communication with other providers. Discharge Instructions Please refer to the electronic Patient Visit Report (Discharge Instructions) for additional information. Follow-Up Appointments: Follow up with your Primary Care Provider within 1 month. Follow up with Pulmonology within 2 weeks as already scheduled with Reinaldo Martinez. Additional Copies To Jocelyne Cook M.D.
[2017-07-14 18:35] LABS: FUNGITELL (1-3)-B-D-GLUCAN* <31 pg/mL; FUNGITELL INTERP NEGATIVE
== END 2017-07-11 13:30 | disposition home or self-care (01) ==
LOC: C.ACU 06:10 → C.MED 10:29 → ENRESERV 11:06
PROVIDERS: ADMIT Hospitalist; ATTEND Hospitalist
DX: J44.0 Chronic obstructive pulmonary disease with (acute) lower respiratory infection (principal); J20.9 Acute bronchitis, unspecified; I25.10 Atherosclerotic heart disease of native coronary artery without angina pectoris; K50.90 Crohn's disease, unspecified, without complications; E03.9 Hypothyroidism, unspecified; G47.33 Obstructive sleep apnea (adult) (pediatric); I10 Essential (primary) hypertension; Z80.9 Family history of malignant neoplasm, unspecified; Z82.49 Family history of ischemic heart disease and other diseases of the circulatory system; Z79.899 Other long term (current) drug therapy

== ENCOUNTER → 2017-08-13 | Day surgery (SDC) | payer BC ==
[2017-08-10 12:06] VITALS: BMI 29.0
[~2017-08-13] VITALS: Ht 185.4 cm; Wt 101.4 kg
[~2017-08-13] MED LIST changes: +ALBUTEROL 0.083% NEBU SOLN 3 ML VIAL INH PRN; +AMLO-110 PO; +ATROPINE SULFATE 0.1 MG/ML 5ML SYR IV PRN; -AZAT50TA17 PO; +B-CO1CAP17 PO; -BENZ100C7 PO; +BENZ100C84 PO; +CHOL1000 PO; +DEXAMETHASONE SOD INJ 4 MG/ML VIAL ONE; +DORN1SOL INH; +EpHEDrine SULFATE INJ 50 MG/ML AMP IV PRN; +FENTANYL CITRATE INJ 50 MCG/1 ML 2 ML VIAL IV PRN; +FENTANYL CITRATE INJ 50 MCG/1 ML 2 ML VIAL ONE; -GFNSR600 PO; +GUAISYP8 PO; +HOMETAB PO; -IMD2 PO; +LACTATED RINGER'S 1000ML 1,000 ML IV SCH; +LIDOCAINE HCL 2% 2 ML VIAL (20MG/ML) ONE; +MEPERIDINE HCL 25 MG/ML CARP IV PRN; +MESA0.37 PO; +MIDAZOLAM HCL 1 MG/ML 2ML VIAL ONE; +MoRPHine SULFATE 10 MG/ML CARP/VIAL IV PRN; +NYSS/ PO; +ONDANSETRON INJ 2 MG/ML 2 ML VIAL IV PRN; +ONDANSETRON INJ 2 MG/ML 2 ML VIAL ONE; -PLMIH INH; +PROPOFOL IV EMULSION 10 MG/ML 20 ML VIAL IV ONE; +ROCURONIUM BROMIDE 10 MG/ML 5 ML VIAL IV ONE; +SUCCINYLCHOLINE CHLORIDE 20 MG/ML 10 ML VIAL IV ONE; +TADA10TA PO; -ZOLP10TA PO
[2017-08-13 12:32] VITALS: BP 138/67; PULSE 86; TEMP 36.5; O2SAT 94; Ht 185.4 cm; Wt 101.4 kg
--- NOTE | 2017-08-13 12:40 | History and Physical ---
History & Physical Date of Service Aug 13, 2017. History & Physical 66-year-old male presents to the office for continuation of care of cough and COPD. Prior records reviewed. Medical history includes: History of COPD, obstructive sleep apnea (unable to tolerate CPAP), diastolic dysfunction, Crohn' s disease (tx azathioprine), hypothyroid, and hypertension. He is a former smoker 40 pack-year quit 2003. Former exposures: [place]. Patient history notable for LLL pneumonia required hospital admission 06/2016 at which time he established with Dr. Velazco. PFT 07/2016 were generally well preserved. He was re-admitted 11/2016 with COPD exacerbation 11/02 influenza A then again 01/2017 with hypoxic respiratory failure and persistent purulent cough despite aggressive outpatient treatment. CT at that tie described advanced emphysema, bilateral patchy infiltrate with fluid-secretions in bilateral lower lobes and bronchiectatic changes on the RLL (new from 12/2010). W /U for TB was negative. He was treated with IV steroids, fluid restriction (for B-line on US concerning of diastolic dysfunction), and pip-tazo transitioned to Augmentin and 2LPM O2 on discharge. Unfortunately, his symptoms progressed post-discharge and he was re-admitted -03/06/15-03/20 with acute on chronic hypoxic respirator failure. During this admission he underwent right heart catheterization and echo (WNL) and bronchoscopy with mucolytic. Bronchoscopy 03/21/17 was notable for lavage of diffuse mucous secretions through the bilateral bronchial trees. BAL from the lingula grew Burkholderia Cepacia sensitive to Bactrim. He was prescribed TMP- SMX 800-160/DS BID x 12-weeks. Despite this course, he continued to report persistent dyspnea and cough productive of purulent, thick yellow-green sputum - no hemoptysis. Bactrim was held and he underwent repeat bronchoscopy 05/22/2017 with procedure again notable for lavage of diffuse mucous plugs in bilateral bronchial trees with minor bleeding associated in the lingula. BAL: light normal jennifer. Few saprophytic fungus and negative AFB. He improved only modestly post lavage despite use of VEST and mucolytic daily. Bronchoscopy was repeated 07/09/17 again notable for diffuse erythema and mucous plugging this time notable for more diffuse erythema and mild pseudomembranous changes bilaterally. BAL RLL: moderate Moraxella catarrhalis. He was admitted post bronchoscopy and ID consulted - he completed a course of PO levofloxacin 500mg x 10-day per recommendation. Unfortunately, on his post-procedure appointment, he continued to be highly symptomatic of dyspnea and purulent persistent cough. he was treated with an additional course of Augmentin 875-125 with continued pulmonary toilet and presents today. Exam/interview today the patient continues to report symptoms cough productive of thick yellow sputum. cough is so severe such that to provoked near syncope and will awaken from sleep at night.. He does report associated chest discomfort which is musculoskeletal in nature associated with cough. He denies any fevers or chills. He is using Tessalon Perles as well as a cough syrup prescribed last visit which is somewhat palliative in improving his quality of sleep. He did complete his course of Augmentin which he stated did not impact and was provocative of loose stools. Active Problems 1. Aspiration pneumonia 2. Bronchiectasis 3. Candidiasis 4. CAP (community acquired pneumonia) 5. Chronic cough 6. Chronic obstructive pulmonary disease 7. Chronic pain 8. COPD exacerbation 9. Crohn's disease 10. Diverticulosis 11. Hypothyroidism 12. Mucus plugging of bronchi 13. Obstructive sleep apnea syndrome 14. Tracheitis Social History Current Meds 1. Sulfamethoxazole-Trimethoprim 800-160 MG Oral Tablet; Take 1 tablet twice daily; 2. GuaiFENesin AC 100-10 MG/5ML Oral Syrup; TAKE 5 ML EVERY 4 HOURS NEEDED; 3. Acetylcysteine 20 % Inhalation Solution; INHALE 4 ML Twice daily; 4. Nystatin 040331 UNIT/ML Mouth/Throat Suspension; SWISH AND SWALLOW 6ML 4 5. Albuterol Sulfate (2.5 MG/3ML) 0.083% Inhalation Nebulization Solution; USE 1 UNIT 6. Ipratropium-Albuterol 0.5-2.5 (3) MG/3ML Inhalation Solution; USE 1 UNIT DOSE IN 7. TraMADol HCl - 50 MG Oral Tablet; TAKE 1 TABLET Every 6 hours PRN; 8. Benzonatate 200 MG Oral Capsule; TAKE 1 CAPSULE 3 TIMES DAILY NEEDED; 9. Ambien 10 MG Oral Tablet; TAKE 1 TABLET Bedtime; 10. AmLODIPine Besylate 5 MG Oral Tablet; TAKE 1 TABLET DAILY; 11. Apriso CP24; 12. Cialis 10 MG Oral Tablet; 13. Colestipol HCl - 1 GM Oral Tablet; TAKE 1 TABLET TWICE DAILY 14. Levothyroxine Sodium 88 MCG Oral Tablet; TAKE 1 TABLET DAILY; 15. Loperamide HCl 2 MG TABS; take 1 tablet twice daily as needed; 16. Losartan Potassium 50 MG Oral Tablet; 17. Multi-Vitamin Oral Tablet; TAKE 1 TABLET DAILY; 18. ProAir HFA 108 (90 Base) MCG/ACT Inhalation Aerosol Solution; INHALE 2 PUFFS 4 19. Pulmozyme 1 MG/ML Inhalation Solution; 20. Spiriva HandiHaler 18 MCG Inhalation Capsule; INHALE 1 CAPSULE DAILY; 21. Symbicort 160-4.5 MCG/ACT Inhalation Aerosol; INHALE 2 PUFFS TWICE DAILY. RINSE 22. Vitamin B Complex TABS; TAKE 1 TABLET DAILY; 23. Vitamin D3 89519 UNIT Oral Capsule; TAKE 1 CAPSULE DAILY; Allergies VitalsBlood Pressure: 134 / 70 Respiration: 20 Heart Rate: 74 Temperature: 98.3 F O2 Saturation: 94, RA Physical Exam Constitutional: Well developed, well nourished male. No acute distress. Head: + facial symmetry Eyes: EOMi, PERRLA, no conjunctival injection Mouth: Moist mucuos membranes. No erythema, exudate, or post nasal gtt Neck: Trachea midline. No adenopathy or masses Respiratory: Non-labored respirations. bilateal coarse rales. No wheeze. Cardiovascular: RRR, no MRG. +2 radial pulses. <1s capillary refill. Abdomen: soft, active bowel sounds Integumentary: no rashes, or ecchymosis MSK/Extremities: Moving and developed symmetrically. No peripehral edema. No calf tenderness. Neurologic: A&O, data recall in-tact. Appropriate affect.
--- NOTE | 2017-08-13 16:10 | Bronchoscopy Procedure Note ---
Bronchoscopy Procedure Note Procedure: Flexible-Bronchoscopy, rigid-bronchoscopy, GETA, optical forceps biopsy, bronchial lavage Consent: Obtained through the patient placed into the chart Pre-procedural diagnosis: Tracheitis Post-procedural diagnosis: Tracheitis Sedation: Please refer to anesthesia dictation Procedure: The Olympus video bronchoscope and Dumon size 13.0 rigid tracheoscope was used for this procedure. LAMA was initially placed: Flexible scope was passed down through findings below Vocal cords: Anatomically within normal limits Subglottis/trachea/Beth: Diffuse erythema with loss of posterior wall striations and multiple granulomas appreciated throughout the trachea Right bronchial tree: Right mainstem bronchus: Anatomically within normal limits Right upper lobe: Anatomically within normal limits, RB3 and RB1 obstructive with diffuse mucous plugs Bronchus intermedius: Diffuse erythema Right middle lobe: Diffuse erythema Right lower lobe: Diffuse erythema with obstructive mucous plugs Findings: Erythema with mild loss of the posterior wall striations, diffuse mucous plugs Left bronchial tree: Left mainstem bronchus: Diffuse erythema with small granulomas noted Left upper lobe: Anatomically within normal limits Lingula: Anatomically within normal limits Left lower lobe: Diffuse erythema obstructive with mucous plugging Findings: Erythema with diffuse mucous plugs Bronchial alveolar lavage: Right upper lobe (RB1) EBL: 2cc Optical forceps biopsy: Approximate 5 biopsies were taken of the trachea 3 from the posterior wall to from the anterior wall Complications: None Follow-up: PACU
[2017-08-13 16:45] VITALS: PULSE 78; O2SAT 98
--- NOTE | 2017-08-13 16:58 | Anesthesiology Progress Note ---
Anesthesia Post Op Note Date & Time Aug 13, 2017 at 16:57 Vital Signs Pain Intensity: 0 Vital Signs Past 12 Hours Date Time Temp Pulse Resp B/P (MAP) Pulse Ox O2 Delivery O2 Flow Rate FiO2 08/13/17 16:50 72 21 120/73 94 Nasal Cannula 2 08/13/17 16:45 78 20 98 Mask 10.0 08/13/17 16:40 71 24 135/75 98 Oxymask 10 08/13/17 16:30 71 30 134/71 98 Oxymask 10 08/13/17 16:20 36.0 78 16 121/73 97 Oxymask 10 08/13/17 12:32 36.5 86 22 138/67 (90) 94 Room Air Notes Mental Status: alert / awake / arousable, participated in evaluation Pt Amnestic to Procedure: Yes Nausea / Vomiting: adequately controlled Pain: adequately controlled Airway Patency, RR, SpO2: stable & adequate BP & HR: stable & adequate Hydration State: stable & adequate Anesthetic Complications: no major complications apparent
--- NOTE | 2017-08-13 17:07 | Discharge Instructions ---
Discharge Instructions Date of Service Aug 13, 2017. Admission Reason for Admission: Bronchiectasis, Mucus Plugging Of Bronchi Discharge Discharge Diagnosis / Problem: Traceheitis Discharge Goals Goal(s): Improve function, Diagnostic testing Activity Recommendations Activity Limitations: resume your previous activity . Instructions / Follow-Up Instructions / Follow-Up In the [facility] Current Hospital Diet Patient's current hospital diet: Discharge Diet Recommended Diet: Regular Diet Procedures Procedures Performed: flexible bronchoscopy; rigid bronchoscopy; bronchial lavage, optical forcep biopsy Pending Studies Studies pending at discharge: no Medical Emergencies . Who to Call and When: Medical Emergencies: If at any time you feel your situation is an emergency, please call 911 immediately. . Non-Emergent Contact Non-Emergency issues call your: [employer] . . "Provider Documentation" section prepared by Alexander Alamo. . VTE Core Measure Inpt VTE Proph given/why not?: Treatment not indicated
[2017-08-13 17:10] VITALS: BP 109/60; PULSE 70; TEMP 36.1; O2SAT 92
[2017-08-13 17:40] VITALS: BP 134/66; PULSE 70; O2SAT 92
[2017-08-13 18:10] VITALS: BP 140/60; PULSE 78; O2SAT 91
== END | disposition home or self-care (01) ==
LOC: C.ACU 12:04
PROVIDERS: ATTEND Internal Medicine Critical Care Medicine
DX: J04.10 Acute tracheitis without obstruction (principal); J44.9 Chronic obstructive pulmonary disease, unspecified; I10 Essential (primary) hypertension; E03.9 Hypothyroidism, unspecified; G47.33 Obstructive sleep apnea (adult) (pediatric); K50.90 Crohn's disease, unspecified, without complications; Z87.891 Personal history of nicotine dependence; Z79.899 Other long term (current) drug therapy

== ENCOUNTER 2017-10-19 09:58 | Inpatient (IN) | payer BC, OTHER ==
[~2017-10-19] VITALS: Ht 185.4 cm; Wt 102.7 kg
[~2017-10-19 09:58] MED LIST changes: -ALBUTEROL 0.083% NEBU SOLN 3 ML VIAL INH PRN; -ATROPINE SULFATE 0.1 MG/ML 5ML SYR IV PRN; -DEXAMETHASONE SOD INJ 4 MG/ML VIAL ONE; -EpHEDrine SULFATE INJ 50 MG/ML AMP IV PRN; -FENTANYL CITRATE INJ 50 MCG/1 ML 2 ML VIAL IV PRN; -FENTANYL CITRATE INJ 50 MCG/1 ML 2 ML VIAL ONE; -LACTATED RINGER'S 1000ML 1,000 ML IV SCH; -LIDOCAINE HCL 2% 2 ML VIAL (20MG/ML) ONE; -MEPERIDINE HCL 25 MG/ML CARP IV PRN; -MIDAZOLAM HCL 1 MG/ML 2ML VIAL ONE; -MoRPHine SULFATE 10 MG/ML CARP/VIAL IV PRN; -ONDANSETRON INJ 2 MG/ML 2 ML VIAL IV PRN; -ONDANSETRON INJ 2 MG/ML 2 ML VIAL ONE; -PROPOFOL IV EMULSION 10 MG/ML 20 ML VIAL IV ONE; -ROCURONIUM BROMIDE 10 MG/ML 5 ML VIAL IV ONE; -SUCCINYLCHOLINE CHLORIDE 20 MG/ML 10 ML VIAL IV ONE
--- NOTE | 2017-10-19 10:29 | EMERGENCY ROOM VISIT NOTE ---
History Report prepared by Josefa: Shad Nicolas Under the Supervision of: Dr. Sly Cloud M.D. First contact with patient: 10:14 Chief Complaint: SHORTNESS OF BREATH Stated Complaint: SOB, SENT BY [facility] Nursing Triage Summary: Pt has hx COPD, and "lung issues" for a year. Over the last month shortness of breath has progressively gotten worse. Saw PCP today, sent here for eval. Pt wears 2l 02 NC at night only. History of Present Illness The patient is a 66 year old male who presents to the Emergency Room after referral from Dr. Alamo with complaints of worsening shortness of breath. The patient has been following with Dr. Alamo for "lung issues" for the past year. He has been hospitalized for respiratory concerns 4 times within the past year. Over the past month his shortness of breath has worsened significantly. He notes that the SOB is primarily exertional. The patient also notes a severe cough, and notes chest pain associated to the cough. He has never been diagnosed with any underlying lung disease. The patient also has Crohn's disease and is immunocompromised secondary to his steroid intake. He is on DuoNeb and inhaler treatments at home. Source of History: patient Onset: 1 year Position: chest (Respiratory) Quality: other (SOB) Timing: worsening Modifying Factors (Worsening): exertion Associated Symptoms: + cough Review of Systems See HPI for pertinent positives & negatives. A total of 10 systems reviewed and were otherwise negative. Past Medical & Surgical Medical Problems: (1) Bronchitis (2) Dyspnea on exertion (3) Emphysema, unspecified (4) Hypertension (5) Hypoxia (6) Influenza A (7) Pneumonia (8) Pneumonia (9) Sinus tachycardia seen on phototypesetting equipment monitor Surgical Problems: (1) S/P bronchoscopy with bronchoalveolar lavage Old medical records were reviewed. Nurse's notes were reviewed and I agree with. Family History FH: cancer FH: hypertension Social History Smoking Status: Former Smoker Alcohol Use: none Drug Use: none Marital Status: Housing Status: lives with family Occupation Status: retired Current/Historical Medications Scheduled Amlodipine (Norvasc), 5 MG PO QAM Budesonide/Formoterol Fumarate (Symbicort 160/4.5 Inhaler), 2 PUFF INH BID Cholecalciferol (Vitamin D3), 1 TAB PO QAM Colestipol Hcl (Colestipol Hcl), 1 GM PO BID Cyanocobalamin (Vitamin B-12), 100 MCG PO QAM Dornase Robin (Pulmozyme), 1 INHA INH BID Doxepin Hcl (Sleep) (Silenor), 1 TAB PO HS Furosemide (Lasix), 40 MG PO QAM Home O2 Therapy (Oxygen), 2 LITERS NA HS Homeopathic Products (Sleep Medicine), 1 TAB PO HS Ipratropium-Albuterol (Duoneb), 1 TREATMENT INH TID Levothyroxine Sodium (Synthroid), 88 MCG PO QAM Losartan Potassium (Losartan Potassium), 50 MG PO QAM Mesalamine (Apriso), 4 CAP PO QAM Multivitamin (Multivitamin), 1 TAB PO QAM Nystatin (Nystatin Suspension), 5 ML PO TID Prednisone (Prednisone), 40 MG PO DAILY Spironolactone (Aldactone), 25 MG PO DAILY Tadalafil (Cialis), 10 MG PO UD Tiotropium Trosper (Spiriva Handihaler), 1 PUFF INH QAM Vitamin B Cmplx/Vitc/Folic Ac (Nephrocaps), 1 CAP PO QAM Scheduled PRN Albuterol Sulf (Proventil 0.083% 2.5MG/3ML), 2.5 MG INH Q4 PRN for Shortness of Breath Albuterol Sulfate (Proair Respiclick), 2 PUFFS INH QID PRN for SOB/Wheezing Benzonatate (Tessalon Perles), 1 CAP PO TID PRN for Cough Guaifenesin-Codeine (Guaiatussin Ac), 5 ML PO TID PRN for RN Allergies Coded Allergies: No Known Allergies (Unverified , 08/13/17) Physical Exam Vital Signs Date Time Temp Pulse Resp B/P (MAP) Pulse Ox O2 Delivery O2 Flow Rate FiO2 10/19/17 11:52 92 Nasal Cannula 2.0 10/19/17 11:50 73 20 121/59 92 Room Air 10/19/17 10:40 81 22 93 Room Air 10/19/17 10:32 77 10/19/17 10:20 Room Air 10/19/17 10:06 93 Room Air 10/19/17 10:06 36.5 96 24 132/55 93 Room Air Physical Exam General: Non-ill appearing middle age male in no acute distress. HEENT: Normal cephalic atraumatic. Pupils are equal round and reactive to light. Extraocular movements are intact. Oropharynx is pink with moist mucous membranes. No swelling of the mouth lips or tongue. Neck: Supple with a midline trachea. No meningeal signs or stiffness, no JVD or bruits. No Stridor. Chest: Patient is moderately tachypneic with a deep hacking cough. Lungs have rhonchus breath sounds bilaterally. Heart: regular rate and rhythm. Abdomen: Soft nontender, nondistended without rebound guarding or rigidity. Extremities: No cyanosis clubbing or edema. No calf tenderness or assymetry Spine/Back. Non tender to palpation. No CVA tenderness Skin: Good turgor without rashes. Neurologic exam: Cranial nerves two through 12 are intact. Motor and sensation are intact and symmetrical throughout. 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 This is somewhat more prominent on the left but is unchanged in the prior study. No focal infiltrate. No evidence for cardiac enlargement. IMPRESSION: Chronic change. No acute process. The above report was generated using voice recognition software. It may contain grammatical, syntax or spelling errors. Electronically signed by: Gregorio Lagos M.D. 10/19/2017 11:20 AM Dictated Date/Time: 10/19/2017 11:18 AM Laboratory Results 10/19/17 10:30 Red Blood Count 4.45, Mean Corpuscular Volume 93.9, Mean Corpuscular Hemoglobin 31.5, Mean Corpuscular Hemoglobin Concent 33.5, Mean Platelet Volume 10.3, Neutrophils (%) (Auto) 87.9, Lymphocytes (%) (Auto) 3.1, Monocytes (%) (Auto) 7.7, Eosinophils (%) (Auto) 0.6, Basophils (%) (Auto) 0.1, Neutrophils # (Auto) 13.56, Lymphocytes # (Auto) 0.48, Monocytes # (Auto) 1.19, Eosinophils # (Auto) 0.09, Basophils # (Auto) 0.02 10/19/17 10:30 Test 10/19/17 10:30 10/19/17 10:45 10/19/17 10:47 10/19/17 10:53 White Blood Count 15.44 K/uL (4.8-10.8) Red Blood Count 4.45 M/uL (4.7-6.1) Hemoglobin 14.0 g/dL (14.0-18.0) Hematocrit 41.8 % (42-52) Mean Corpuscular Volume 93.9 fL (80-100) Mean Corpuscular Hemoglobin 31.5 pg (25-34) Mean Corpuscular Hemoglobin Concent 33.5 g/dl (32-36) Platelet Count 234 K/uL (130-400) Mean Platelet Volume 10.3 fL (7.4-10.4) Neutrophils (%) (Auto) 87.9 % Lymphocytes (%) (Auto) 3.1 % Monocytes (%) (Auto) 7.7 % Eosinophils (%) (Auto) 0.6 % Basophils (%) (Auto) 0.1 % Neutrophils # (Auto) 13.56 K/uL (1.4-6.5) Lymphocytes # (Auto) 0.48 K/uL (1.2-3.4) Monocytes # (Auto) 1.19 K/uL (0.11-0.59) Eosinophils # (Auto) 0.09 K/uL (0-0.5) Basophils # (Auto) 0.02 K/uL (0-0.2) RDW Standard Deviation 51.1 fL (36.4-46.3) RDW Coefficient of Variation 15.0 % (11.5-14.5) Immature Granulocyte % (Auto) 0.6 % Immature Granulocyte # (Auto) 0.10 K/uL (0.00-0.02) Prothrombin Time 10.3 SECONDS (9.0-12.0) Prothromb Time International Ratio 1.0 (0.9-1.1) Activated Partial Thromboplast Time 26.6 SECONDS (21.0-31.0) Partial Thromboplastin Ratio 1.0 D-Dimer 470 ug/L FEU (0-500) Anion Gap 9.0 mmol/L (3-11) Est Creatinine Clear Calc Drug Dose 92.8 ml/min Estimated GFR () 90.5 Estimated GFR (Non- 78.1 BUN/Creatinine Ratio 17.6 (10-20) Calcium Level 9.1 mg/dl (8.5-10.1) Total Bilirubin 0.9 mg/dl (0.2-1) Direct Bilirubin 0.2 mg/dl (0-0.2) Aspartate Amino Transf (AST/SGOT) 15 U/L (15-37) Alanine Aminotransferase (ALT/SGPT) 39 U/L (12-78) Alkaline Phosphatase 65 U/L (45-117) Total Creatine Kinase 179 U/L (39-308) Creatine Kinase MB 3.3 ng/ml (0.5-3.6) Creatine Kinase MB Ratio 1.8 (0-3.0) Total Protein 6.9 gm/dl (6.4-8.2) Albumin 3.1 gm/dl (3.4-5.0) Lipase 221 U/L (73-393) Bedside Troponin I < 0.030 ng/ml (0-0.045) Bedside Lactic Acid Venous 2.73 mmol/L (0.90-1.70) Influenza Type A Antigen Neg for Influ A (NEG) Influenza Type B Antigen Neg for Influ B (NEG) Laboratory studies as stated above per my review. Medications Administered Medications (Trade) Dose Ordered Sig/Jeffery Route Start Time Stop Time Status Last Admin Dose Admin Levalbuterol (Xopenex 1.25MG/ 0.5ML Neb) 5 mg ONE ONCE INH 10/19/17 10:30 10/19/17 10:31 DC 10/19/17 10:40 5 MG Ipratropium Trosper (Atrovent 0.02% 0.5MG/2.5ML Neb) 2 mg ONE ONCE INH 10/19/17 10:30 10/19/17 10:31 DC 10/19/17 10:40 2 MG ECG Indication: SOB/dyspnea Rate (beats per minute): 78 Findings: no acute ischemic change, no ectopy Comparison ECG Date: 02/09/2017 Change: no significant change ED Course 1015: Past medical records reviewed. The patient was evaluated in room C1, and a complete history and physical examination were performed. 1030: Ordered Ipratropium 2 mg INH, Levalbuterol 5 mg INH. 1155: I discussed the case with Dr. Thomas - Hospitalist. He will evaluate the patient for further treatment. Medical Decision Differential diagnosis includes; COPD exacerbation, CHF, electrolyte or metabolic abnormality, cardiac disease. This patient comes in as described above. He was placed in room C1. I have discussed the case prior to arrival with Dr. Alamo his neuroscience director na. Dr. Alamo was concerned he was very short of breath the office and felt that he needed to be seen in the ER and likely admitted/observed for further treatment and evaluation and rule out cardiac disease. Apparently some bronchitis several times without answers to shortness of breath. Chest x-ray was obtained as well as multiple blood testing EKG and hour-long neb was obtained. He is on chronic steroids. This was increased threcently due to Crohn's disease. He does have anelevated white count which could be related infection or steroids. Chest x-ray does not show any acute infiltrate failure or pneumothorax seen. EKG does not suggest acute coronary event. There is no significant electrolyte or metabolic abnormalities. His cardiac biomarkers are not elevated. He is feeling better after an hour-long neb still appears to have some tachypnea and coughing. I do think he needs to be admitted/observed for further treatment and evaluation and rule out cardiac disease as well. The patient is seen by Dr. Thomas in the ER. Blood Pressure Screening Patient's blood pressure: Normal blood pressure Consults Time Called: 1150 Consulting Physician: Dr. Thomas - Hospitalist Returned Call: 1155 I discussed the case with Dr. Thomas - Luiz. He will evaluate the patient for further treatment. Impression Primary Impression: SOB (shortness of breath) Additional Impression: Hypoxia Scribe Attestation The scribe's documentation has been prepared under my direction and personally reviewed by me in its entirety. I confirm that the note above accurately reflects all work, treatment, procedures, and medical decision making performed by me. Departure Information Dispostion Being Evaluated By Hospitalist Jocelyne Palacios M.D. (PCP) Patient Instructions My [facility] Problem Qualifiers
[2017-10-19] MEDS ORDERED: IPRATROPIUM BROMIDE NEB SOLN 0.02% 2.5 ML VIAL INH ONE (10:30)
[2017-10-19] MEDS ORDERED: LEVALBUTEROL 1.25MG/0.5ML NEB INH ONE (10:30)
[2017-10-19 10:40] VITALS: PULSE 81; O2SAT 93
[2017-10-19 10:57] LABS: BASO % 0.1 %; BASO ABS # 0.02 K/uL (0-0.2); EOS % 0.6 %; EOS ABS # 0.09 K/uL (0-0.5); HEMATOCRIT 41.8 % (42-52); LYMPH % 3.1 %; LYMPH ABS # 0.48 K/uL (1.2-3.4); MEAN CELL VOLUME 93.9 fL (80-100); MEAN CORPUSCULAR HEMOGLOBIN 31.5 pg (25-34); MEAN CORPUSCULAR HGB CONC 33.5 g/dl (32-36); MEAN PLATELET VOLUME 10.3 fL (7.4-10.4); MONO % 7.7 %; MONO ABS # 1.19 K/uL (0.11-0.59); NEUT % 87.9 %; NEUT ABS # 13.56 K/uL (1.4-6.5); PLATELET COUNT 234 K/uL (130-400); RED CELL DISTRIBUTION WIDTH SD 51.1 fL (36.4-46.3); WHITE BLOOD COUNT 15.44 K/uL (4.8-10.8)
[2017-10-19] MEDS ORDERED: PRED20TA PO (11:02)
[2017-10-19] MEDS ORDERED: SPIR25TA89 PO (11:02)
[2017-10-19] MEDS ORDERED: DOXE1TAB2 PO (11:02)
--- NOTE | 2017-10-19 11:22 | DIAGNOSTIC IMAGING REPORT ---
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 This is somewhat more prominent on the left but is unchanged in the prior study. No focal infiltrate. No evidence for cardiac enlargement. IMPRESSION: Chronic change. No acute process. The above report was generated using voice recognition software. It may contain grammatical, syntax or spelling errors. Electronically signed by: Gregorio Lagos M.D. 10/19/2017 11:20 AM Dictated Date/Time: 10/19/2017 11:18 AM
[2017-10-19 11:23] LABS: PTT PATIENT 26.6 SECONDS (21.0-31.0)
[2017-10-19 11:30] LABS: ALBUMIN 3.1 gm/dl (3.4-5.0); CALCIUM 9.1 mg/dl (8.5-10.1); POTASSIUM 3.9 mmol/L (3.5-5.1)
[2017-10-19 11:34] LABS: CKMB 3.3 ng/ml (0.5-3.6); TOTAL PROTEIN 6.9 gm/dl (6.4-8.2)
[2017-10-19 11:45] LABS: INFLUENZA B ANTIGEN Neg for Influ B (NEG)
[2017-10-19] MEDS ORDERED: ALBUT/IPRATROP 3MG/0.5MG NEB 3 ML VIAL INH PRN (12:00)
[2017-10-19] MEDS ORDERED: MAGNESIUM HYDROXIDE SUSP 30 ML UDC PO PRN (12:00)
[2017-10-19] MEDS ORDERED: ONDANSETRON INJ 2 MG/ML 2 ML VIAL IV PRN (12:00)
[2017-10-19] MEDS ORDERED: NITROGLYCERIN 0.4 MG SL PER TAB CHARGE SL PRN (12:00)
[2017-10-19] MEDS ORDERED: ACETAMINOPHEN 325 MG TAB PO PRN (12:00)
[2017-10-19] MEDS ORDERED: ALUMINUM/MAGNESIUM/SIMETH (MAALOX MAX) 30 ML UDC PO PRN (12:00)
[2017-10-19] MEDS ORDERED: COUGH DROP (SUGAR FREE) LOZ 24 LOZ/1 BOX LOZ PRN (12:15)
--- NOTE | 2017-10-19 12:26 | History and Physical ---
History & Physical Date & Time of Service: Oct 19, 2017 at 12:19 Chief Complaint: Sob, Sent By Jasmeet Primary Care Physician: Jocelyne Cook M.D. History of Present Illness 66-year-old male sent from Dr. Alamo's office for acute respiratory failure. This patient's suffered from and previously on this close pulmonary problem initially felt to possibly be COPD. The patient's had extensive workups in the past including bronchoscopy with cultures, testing for TB which has been negative, current testing for influenza which is negative, cardiovascular evaluation including an echocardiogram in January 2017 with preserved EF, March 2017 with no intra-atrial shunt noted, and right heart catheterization. The patient does have exertional related symptoms however even when he's extremely short of breath he does not have any acute EKG changes to suggest ischemia nor does he have any associated symptoms such as arm discomfort jaw discomfort or nausea. The patient also has a unremarkable chest x-ray currently on presentation. He has been taking outpatient prednisone at 40 mg. He is slightly immune compromise giving a concurrent treatment for Crohn 's disease. The patient's been given an hour-long nebulizer in the ER with modest improvement he still is very coarse breath sounds and a nonproductive cough he feels he is worse when he lays down at night and has been noting some mild lower extremity swelling. Currently a D dimer is pending Past Medical/Surgical History Medical Problems: (1) Bronchitis Status: Resolved (2) Emphysema, unspecified Status: Resolved (3) Hypertension Status: Chronic (4) Pneumonia Status: Resolved Family History FH: cancer FH: hypertension Social History Smoking Status: Former Smoker Drug Use: none Marital Status: Housing status: lives with family Occupational Status: retired Multi-Drug Resistant Organisms History of MDRO: No Allergies Coded Allergies: No Known Allergies (Unverified , 08/13/17) Home Medications Scheduled Amlodipine (Norvasc), 5 MG PO QAM Budesonide/Formoterol Fumarate (Symbicort 160/4.5 Inhaler), 2 PUFF INH BID Cholecalciferol (Vitamin D3), 1 TAB PO QAM Colestipol Hcl (Colestipol Hcl), 1 GM PO BID Cyanocobalamin (Vitamin B-12), 100 MCG PO QAM Dornase Robin (Pulmozyme), 1 INHA INH BID Doxepin Hcl (Sleep) (Silenor), 1 TAB PO HS Furosemide (Lasix), 40 MG PO QAM Home O2 Therapy (Oxygen), 2 LITERS NA HS Homeopathic Products (Sleep Medicine), 1 TAB PO HS Ipratropium-Albuterol (Duoneb), 1 TREATMENT INH TID Levothyroxine Sodium (Synthroid), 88 MCG PO QAM Losartan Potassium (Losartan Potassium), 50 MG PO QAM Mesalamine (Apriso), 4 CAP PO QAM Multivitamin (Multivitamin), 1 TAB PO QAM Nystatin (Nystatin Suspension), 5 ML PO TID Prednisone (Prednisone), 40 MG PO DAILY Spironolactone (Aldactone), 25 MG PO DAILY Tadalafil (Cialis), 10 MG PO UD Tiotropium [place] (Spiriva Handihaler), 1 PUFF INH QAM Vitamin B Cmplx/Vitc/Folic Ac (Nephrocaps), 1 CAP PO QAM Scheduled PRN Albuterol Sulf (Proventil 0.083% 2.5MG/3ML), 2.5 MG INH Q4 PRN for Shortness of Breath Albuterol Sulfate (Proair Respiclick), 2 PUFFS INH QID PRN for SOB/Wheezing Benzonatate (Tessalon Perles), 1 CAP PO TID PRN for Cough Guaifenesin-Codeine (Guaiatussin Ac), 5 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 ROS: well nourished well developed, the patient states that lately he feels very poorly, feels ill all the time No double vision blurry vision No problems with speech or swallowing No palpitations, or pressure but feels chest pain when his coughing paroxysms occur Significant breathing issues dyspnea on exertion and a pressure in his chest No abdominal pain nausea vomiting diarrhea changes in appetite or weight, particularly no bowel habit changes given his history of Crohn's disease No burning urine urine frequency or changes in color No focal joint pain or muscle pain No skin rashes or oral lesions No unusual bruising or bleeding No focused back pain or numbness or loss of strength No changes in memory or confusion Physical Exam Vital Signs Date Time Temp Pulse Resp B/P (MAP) Pulse Ox O2 Delivery O2 Flow Rate FiO2 10/19/17 11:52 92 Nasal Cannula 2.0 10/19/17 11:50 73 20 121/59 92 Room Air 10/19/17 10:40 81 22 93 Room Air 10/19/17 10:32 77 10/19/17 10:20 Room Air 10/19/17 10:06 93 Room Air 10/19/17 10:06 36.5 96 24 132/55 93 Room Air General Appearance: WD/WN, + moderate distress Head: normocephalic, atraumatic Eyes: normal inspection, PERRL, EOMI, sclerae normal ENT: + pertinent finding (no stridor) Neck: supple, trachea midline Respiratory/Chest: + decreased breath sounds, + accessory muscle use, + rhonchi Cardiovascular: regular rate, rhythm, no murmur Abdomen/GI: normal bowel sounds, non tender, soft Back: normal inspection, no CVA tenderness Extremities/Musculoskelatal: normal capillary refill, normal range of motion ( trace), + pedal edema Neurologic/Psych: alert, oriented x 3 Skin: normal color, warm/dry, no rash Diagnostics Laboratory Results Results Past 24 Hours Test 10/19/17 10:30 10/19/17 10:45 10/19/17 10:47 10/19/17 10:53 Range/Units White Blood Count 15.44 4.8-10.8 K/uL Red Blood Count 4.45 4.7-6.1 M/uL Hemoglobin 14.0 14.0-18.0 g/dL Hematocrit 41.8 42-52 % Mean Corpuscular Volume 93.9 80-100 fL Mean Corpuscular Hemoglobin 31.5 25-34 pg Mean Corpuscular Hemoglobin Concent 33.5 32-36 g/dl Platelet Count 234 130-400 K/uL Mean Platelet Volume 10.3 7.4-10.4 fL Neutrophils (%) (Auto) 87.9 % Lymphocytes (%) (Auto) 3.1 % Monocytes (%) (Auto) 7.7 % Eosinophils (%) (Auto) 0.6 % Basophils (%) (Auto) 0.1 % Neutrophils # (Auto) 13.56 1.4-6.5 K/uL Lymphocytes # (Auto) 0.48 1.2-3.4 K/uL Monocytes # (Auto) 1.19 0.11-0.59 K/uL Eosinophils # (Auto) 0.09 0-0.5 K/uL Basophils # (Auto) 0.02 0-0.2 K/uL RDW Standard Deviation 51.1 36.4-46.3 fL RDW Coefficient of Variation 15.0 11.5-14.5 % Immature Granulocyte % (Auto) 0.6 % Immature Granulocyte # (Auto) 0.10 0.00-0.02 K/uL Prothrombin Time 10.3 9.0-12.0 SECONDS Prothromb Time International Ratio 1.0 0.9-1.1 Activated Partial Thromboplast Time 26.6 21.0-31.0 SECONDS Partial Thromboplastin Ratio 1.0 Sodium Level 134 136-145 mmol/L Potassium Level 3.9 3.5-5.1 mmol/L Chloride Level 99 98-107 mmol/L Carbon Dioxide Level 26 21-32 mmol/L Anion Gap 9.0 3-11 mmol/L Blood Urea Nitrogen 18 7-18 mg/dl Creatinine 1.00 0.60-1.40 mg/dl Est Creatinine Clear Calc Drug Dose 92.8 ml/min Estimated GFR () 90.5 Estimated GFR (Non- 78.1 BUN/Creatinine Ratio 17.6 10-20 Random Glucose 147 70-99 mg/dl Calcium Level 9.1 8.5-10.1 mg/dl Total Bilirubin 0.9 0.2-1 mg/dl Direct Bilirubin 0.2 0-0.2 mg/dl Aspartate Amino Transf (AST/SGOT) 15 15-37 U/L Alanine Aminotransferase (ALT/SGPT) 39 12-78 U/L Alkaline Phosphatase 65 45-117 U/L Total Creatine Kinase 179 39-308 U/L Creatine Kinase MB 3.3 0.5-3.6 ng/ml Creatine Kinase MB Ratio 1.8 0-3.0 Total Protein 6.9 6.4-8.2 gm/dl Albumin 3.1 3.4-5.0 gm/dl Lipase 221 73-393 U/L Bedside Troponin I < 0.030 0-0.045 ng/ml Bedside Lactic Acid Venous 2.73 0.90-1.70 mmol/L Influenza Type A Antigen Neg for Influ A NEG Influenza Type B Antigen Neg for Influ B NEG Test 10/19/17 11:58 Range/Units Microbiology Results 10/19/17 Blood Culture, Received Pending 10/19/17 Blood Culture, Received Pending Diagnostic Radiology Leukocytosis is seen however the patient is on steroids, d-dimer pending CXR normal Normal EKG Impression Assessment and Plan 66-year-old male with acute respiratory failure with history of possibly COPD previous extensive workup including negative TB currently negative influenza Acute respiratory failure possibly COPD exacerbation The patient will be observed in a facility intravenous Solu-Medrol be given will continue dornase, Symbicort, duo nebs will be 4 times a day and every 2 when necessary, as mention a d-dimer is pending if abnormal we'll pursue CT angiography and a pulmonary consultation will be undertaken Cardiovascular, the patient recently has been started on spironolactone this will be continued as well as well as his amlodipine a repeat echocardiogram will be undertaken given the last one was 6 months ago. We placed on telemetry with serial troponins and if needed the patient has seen Dr. Russell Teague in the past for cardiology Crohn's disease we'll continue his mesalamine The patient has difficulty with sleeping will continue Seroquel at bedtime Hypothyroidism continue Synthroid last TSH checked last summer was therapeutic DVT prevention is an Lovenox VTE Prophylaxis VTE Risk Assessment Done? Y/N: Yes Risk Level: Moderate
[2017-10-19 13:12] VITALS: BP 136/65; PULSE 71; TEMP 37.1; O2SAT 95; Ht 185.4 cm; Wt 102.7 kg
[2017-10-19] MEDS ORDERED: IV FLUIDS COMPLETED PRN (14:15)
[2017-10-19] MEDS: APRISO~ORDER AWAITING ACTION SCH ×2 (15:21→23:46)
[2017-10-19 15:52] VITALS: BP 146/73; PULSE 73; TEMP 36.5; O2SAT 96
[2017-10-19] MEDS: METHYLPREDNISOLONE IV 40 MG in SYRINGE 0 ML IV SCH ×2 (16:08→23:46)
[2017-10-19] MEDS ORDERED: OPTIRAY 320 IV PRN (17:45)
--- NOTE | 2017-10-19 18:00 | ECHOCARDIOGRAM REPORT ---
*NOTICE TO RECEIVING [employer] This information is strictly Confidential and protected under [place] law. [place] law prohibits you from making any further disclosure of this information unless further disclosure is expressly permitted by the written consent of the person to whom it pertains or is authorized by law. A general authorization for the release of medical or other information is not sufficient for this purpose. Hospital accepts no responsibility if the information is made available to any other person, INCLUDING THE PATIENT. Interpretation Summary * Name: CHARLES TORRES Study Date: 10/19/2017 03:10 PM BP: 136/65 mmHg * Patient Location: C.2T\S\S239\S\1 HR: 71 * : 1950 (M/d/yyyy) Gender: Male Height: 73 in * Age: 66 yrs Ethnicity: CA Weight: 233 lb * Ordering Physician: Alexander Thomas * Referring Physician: Alexander Alamo * Performed By: Carla Toledo RDCS * * Reason For Study: CHEST PAIN * BSA: 2.3 m2 * -- Conclusions -- * 1. Technically limited study despite use of Definity ultrasound contrast. * 2. Normla LV size. Normal LV function. LVEF 55-60%. * 3. RV not well visualized. Grossly normal size and function. * 4. No significant valvular pathology. * 5. Compared with prior study on 03/21/2017: Current study more limited but no significant changes. Procedure Details * A contrast injection of Definity was performed to improve assessment of LV function. * Contrast was injected into an intravenous site in the left arm. * One vial of Definity ultrasound contrast was diluted in normal saline to a total volume of 10 ml. A total of '3' ml of solution was administered during imaging. * Lot # [id number] of Definity utilized for procedure. * Expiration date OCT 19. * The attending nurse who injected the contrast agent was JONY WILLIAMSON. Left Ventricle * The left ventricle is grossly normal size. * There is normal left ventricular wall thickness. * Ejection Fraction = 55-60%. * No regional wall motion abnormalities noted. Right Ventricle * The right ventricle is not well visualized. * The right ventricle is grossly normal size. * The right ventricular systolic function is qualitatively normal. Atria * The left atrium is not well visualized. * Right atrium not well visualized. * No ASD detected; PFO is not assessed. Mitral Valve * The mitral valve is grossly normal. * There is no mitral valve stenosis. * There is trace mitral regurgitation. Tricuspid Valve * Significant tricuspid regurgitation is absent. Aortic Valve * The aortic valve opens well. * No hemodynamically significant valvular aortic stenosis. * There is no significant aortic regurgitation. Pulmonic Valve * The pulmonary valve is inadequately visualized, but the Doppler data is adequate for interpretation. * There is no pulmonic valvular stenosis. * There is no significant pulmonary regurgitation. Great Vessels * The aortic root and proximal ascending aorta are normal sized. Pericardium/Pleural * There is no pericardial effusion. MMode 2D Measurements and Calculations Ao root diam 3.6 cm Ao root area 10.1 cm\S\2 LA dimension 2.8 cm LA/Ao 0.77 LVAd ap4 28.2 cm\S\2 LVLd ap4 7.6 cm EDV(MOD-sp4) 85.3 ml EDV(sp4-el) 88.5 ml LVAs ap4 17.3 cm\S\2 LVLs ap4 6.6 cm ESV(MOD-sp4) 36.7 ml ESV(sp4-el) 38.2 ml EF(MOD-sp4) 57.0 % EF(sp4-el) 56.9 % LVAd ap2 36.3 cm\S\2 LVLd ap2 8.7 cm EDV(MOD-sp2) 127.8 ml EDV(sp2-el) 129.2 ml LVAs ap2 21.1 cm\S\2 LVLs ap2 7.4 cm ESV(MOD-sp2) 51.5 ml ESV(sp2-el) 51.1 ml EF(MOD-sp2) 59.7 % EF(sp2-el) 60.5 % LVLd %diff 12.2 % EDV(MOD-bp) 110.4 ml LVLs %diff 10.5 % ESV(MOD-bp) 45.6 ml EF(MOD-bp) 58.7 % SV(MOD-sp4) 48.6 ml SI(MOD-sp4) 21.2 ml/m\S\2 SV(MOD-sp2) 76.3 ml SI(MOD-sp2) 33.2 ml/m\S\2 SV(MOD-bp) 64.8 ml SI(MOD-bp) 28.2 ml/m\S\2 SV(sp4-el) 50.4 ml SI(sp4-el) 21.9 ml/m\S\2 SV(sp2-el) 78.2 ml SI(sp2-el) 34.0 ml/m\S\2 Doppler Measurements and Calculations MV E max rukhsana 51.9 cm/sec MV A max rukhsana 60.6 cm/sec MV E/A 0.86 MV dec time 0.31 sec Ao V2 max 117.3 cm/sec Ao max PG 5.5 mmHg Ao max PG (full) 0.86 mmHg LV V1 max PG 4.6 mmHg LV V1 max 107.7 cm/sec
[2017-10-19 19:34] VITALS: BP 118/67; PULSE 69; TEMP 36.6; O2SAT 95
[2017-10-19] MEDS ORDERED: SODIUM CHLORIDE 0.9% 1000ML 1,000 ML IV SCH (20:00)
[2017-10-19] MEDS: BUDESONIDE/FORMOTEROL FUMARATE 160/4.5 60 PUFFS/INHALER INH SCH (20:04)
[2017-10-19] MEDS: HEPARIN SOD 5000 UNIT/0.5 ML CARP SQ SCH (20:06)
[2017-10-19] MEDS: DORNASE ALFA 2.5 ML AMP INH SCH (21:00)
--- NOTE | 2017-10-19 21:18 | DIAGNOSTIC IMAGING REPORT ---
CHEST CT WITH CONTRAST CT DOSE: 567.71 mGy.cm HISTORY: Acute shortness of breath increased shortness of breath TECHNIQUE: Multiaxial CT images of the chest were performed following the intravenous administration of contrast. A dose lowering technique was utilized adhering to the principles of ALARA. COMPARISON: Chest CT 02/17/2017, chest radiograph of same day. FINDINGS: Thyroid is homogeneous. Heart is normal in size without pericardial effusion. Coronary arterial disease. Thoracic aorta is normal in course and caliber with imaged great vessels patent. No aortic aneurysm or dissection. Mild atherosclerotic plaquing of the aortic arch and proximal great vessels. The opacified pulmonary arterial tree is unremarkable. No pathologic-appearing adenopathy identified. No pneumothorax or pleural effusion. Moderate to extensive emphysema. Moderate bilateral bronchial wall thickening is again noted. There are areas of groundglass and linear consolidative opacities of the lung bases, right greater than left. The central airways appear to be patent. There are no suspicious pulmonary nodules or masses of the chest identified. Calcified granuloma of the basal left lower lobe. Contracted gallbladder. No acute abnormality of the imaged upper abdomen. Hepatic steatosis. Soft tissues are unremarkable. Multilevel endplate spurring and facet arthrosis of the spine. IMPRESSION: 1. Emphysema with moderate bronchial wall thickening suggesting bronchitis. Additionally, there are scattered subsegmental groundglass and linear consolidative opacities of the lung bases suggesting areas of atelectasis with pneumonitis thought to be less likely. 2. No lobar airspace consolidations. 3. No pathologic adenopathy. 4. Hepatic steatosis. Electronically signed by: Kang Isaac M.D. 10/19/2017 9:17 PM Dictated Date/Time: 10/19/2017 9:11 PM
[2017-10-19] MEDS: FORMOTEROL FUMA NEBULIZER SOLN 20 MCG/2 ML VIAL INH SCH (21:24)
[2017-10-19] MEDS: ALBUT/IPRATROP 3MG/0.5MG NEB 3 ML VIAL INH SCH (21:24)
[2017-10-19 21:26] VITALS: PULSE 69; O2SAT 96
[2017-10-19] MEDS: COLESTIPOL HCL 1 GM TAB PO SCH (22:01)
[2017-10-19 23:59] VITALS: BP 116/64; PULSE 72; TEMP 36.7; O2SAT 94
[2017-10-20] VITALS (10 sets, daily range): BP systolic 104–134; BP diastolic 53–71; PULSE 60–104; TEMP 36.3–36.7; O2SAT 94–98
[2017-10-20] MEDS: LEVOTHYROXINE 88 MCG TAB PO SCH (05:35)
[2017-10-20 06:42] LABS: HEMATOCRIT 40.3 % (42-52); HEMOGLOBIN 13.4 g/dL (14.0-18.0); MEAN CELL VOLUME 93.1 fL (80-100); MEAN CORPUSCULAR HEMOGLOBIN 30.9 pg (25-34); MEAN CORPUSCULAR HGB CONC 33.3 g/dl (32-36); MEAN PLATELET VOLUME 10.1 fL (7.4-10.4); PLATELET COUNT 222 K/uL (130-400); RED CELL DISTRIBUTION WIDTH CV 14.8 % (11.5-14.5); RED CELL DISTRIBUTION WIDTH SD 50.6 fL (36.4-46.3); WHITE BLOOD COUNT 18.44 K/uL (4.8-10.8)
[2017-10-20] MEDS: ALBUT/IPRATROP 3MG/0.5MG NEB 3 ML VIAL INH SCH ×4 (07:00→19:55)
[2017-10-20] MEDS: FORMOTEROL FUMA NEBULIZER SOLN 20 MCG/2 ML VIAL INH SCH ×2 (07:01→19:55)
[2017-10-20] MEDS: DORNASE ALFA 2.5 ML AMP INH SCH ×2 (07:01→19:55)
[2017-10-20 07:24] LABS: CALCIUM 8.9 mg/dl (8.5-10.1); CREATININE 0.97 mg/dl (0.60-1.40); POTASSIUM 4.6 mmol/L (3.5-5.1)
[2017-10-20] MEDS: APRISO~ORDER AWAITING ACTION SCH (08:00)
[2017-10-20] MEDS: METHYLPREDNISOLONE IV 40 MG in SYRINGE 0 ML IV SCH ×2 (08:26→15:41)
[2017-10-20] MEDS: COLESTIPOL HCL 1 GM TAB PO SCH ×2 (08:26→21:57)
[2017-10-20] MEDS: AMLODIPINE BESYLATE 5 MG TAB PO SCH (08:26)
[2017-10-20] MEDS: CYANOCOBALAMIN 100 MCG TAB (VIT B-12) PO SCH (08:26)
[2017-10-20] MEDS: MULTIVITAMIN TAB PO SCH (08:26)
[2017-10-20] MEDS: BUDESONIDE/FORMOTEROL FUMARATE 160/4.5 60 PUFFS/INHALER INH SCH ×2 (08:26→19:52)
[2017-10-20] MEDS: SPIRONOLACTONE 25 MG TAB PO SCH (08:27)
[2017-10-20] MEDS: FUROSEMIDE 40 MG TAB PO SCH (08:27)
[2017-10-20] MEDS: HEPARIN SOD 5000 UNIT/0.5 ML CARP SQ SCH ×2 (08:28→20:00)
--- NOTE | 2017-10-20 10:20 | PULMONARY PROGRESS NOTE ---
DATE: 10/20/2017 DATE: 10/20/2017 SUBJECTIVE: The patient feels somewhat better from a respiratory standpoint than from when I saw him yesterday. He does have a complex medical history, and I refer you to my dictated pulmonary medicine consultation from yesterday. I am trying to obtain records from [facility] Dr. Duvall and the stain sprayer at [facility] who has also seen patient as an outpatient in consultation, Dr. Cason. The patient has signed a release for me to obtain those records from their outpatient clinic on Sunday. Given his history and complex bronchoscopic findings as outlined by Dr. Alamo I believe it would be helpful to schedule patient Sunday for a repeat bronchoscopic intervention using fiberoptic bronchoscope. The patient is amenable at this point in time and will proceed to schedule the procedure as well as review all past records from outside consultants.
--- NOTE | 2017-10-20 12:07 | PULMONARY CONSULTATION ---
DATE OF CONSULTATION: 10/19/2017 REASON FOR ADMISSION: Severe dyspnea. HISTORY OF PRESENT ILLNESS: A 66-year-old white male with a complex pulmonary medicine history and followed by Dr. Alamo in the office, was admitted from that clinic to the hospitalist service today because of worsening symptoms of dyspnea and tachypnea. He was admitted to Dr. Thomas's service. The patient has had an extensive workup over the past year and a half well outlined by Dr. Alamo. In summary, PFTs have shown a mild obstructive ventilatory defect with decreased DLCO. The patient has undergone right heart catheterization in March 2017, which was essentially within normal limits. CAT scans have shown what appears to be chronic bronchiectasis involving the lower lobes and cultures have grown out the following (Burkholderia cepacia and Moraxella catarrhalis) and has received treatment for that. In addition, he is felt to have had a chronic tracheitis that was associated with Crohn's disease, which he suffers from and was treated with prednisone. Video swallow showed no sign of aspiration. Nothing has been particularly effective and the patient will state that for the past 2-4 weeks, he has become progressively more dyspneic, but prior to that his symptoms had ameliorated for several weeks on end. He has had multiple admissions to this facility for similar symptoms. He denies pleuritic pain or any knowledge of recent fevers, chills or sweats. Cardiology consultation has been discussed because of his symptoms of dyspnea that seem totally discordant with the pulmonary function testing mentioned previously. He has undergone rigid bronchoscopy with tracheal wall biopsy as well as bronchoalveolar lavage, have grown the previous organisms out. Brushings and biopsies from the tracheal wall has shown eosinophils along with abundant inflammatory cells. Prednisone 40 mg daily was utilized. He has had significant mucus plugging. He has been on Bactrim therapy. Guaifenesin nebulizer treatments with Mucomyst 20%, 4 mL b.i.d. and prednisone therapy. He also has received DuoNeb solution around the clock, Tessalon Perles and Pulmozyme along with Symbicort inhaler. He has also sought consultation at both [facility] and [facility] in [place]. Last CT scan of the chest in January of [address] scan as stated earlier done in January 2017 was negative for pulmonary thromboembolic disease, but emphysematous changes with considerable mucous plugging was seen in the [id number] airways with mild bibasilar infiltrative changes seen. Tracheal biopsies were reviewed, showed acute and chronic inflammation with numerous eosinophils and abundant mucous plugs. No evidence of carcinoma was noted. Most recent white count 15,000, H&H 14 and 41. No significant eosinophilia seen currently (the patient is on prednisone), but in May of 2017, his eosinophil count was 20,000. The patient is being admitted for further evaluation and therapy. For details of past medical history, medications, family and social history, I refer you to current and past records. PHYSICAL EXAMINATION: GENERAL: Well-developed, tachypneic and mildly dyspneic white male at rest. CURRENT VITAL SIGNS: Stable. Temperature 36.5, pulse 73 and irregular, respiratory rate 21, blood pressure 146/73, and O2 sat 96% on 2 liters. SKIN: Without lesion. HEENT: Atraumatic and normocephalic. PERRLA. LUNGS: Scattered wheeze diffusely. CARDIAC: Regular rate and rhythm. No murmurs or gallops. ABDOMEN: Soft and scaphoid. No evidence of hepatosplenomegaly. EXTREMITIES: No significant pedal edema, clubbing or cyanosis. NEUROLOGIC: Intact. No lateralizing signs. LABORATORY DATA: Chest x-ray today, chronic changes, nothing acute. White count 17,000, H&H 11 and 35. Differential not available. Lactic acid 2.73. Last IgG level was 712. QuantiFERON Gold study pending. Negative for influenza A, B, and PCR antigen. Previous QuantiFERON Gold was indeterminate. 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 We will need to discuss further with Dr. Alamo and obtain the records from previous consultative pulmonary services at [facility] and [facility]. The patient has been started back on Symbicort inhaler, inhaled Pulmozyme 2.5 mL b.i.d. and Perforomist 20 mcg b.i.d. via nebulizer along with IV methylprednisolone 40 mg q. 8 hours. I need to review his record and see if IgE levels have been sent for along with Aspergillus precipitant titers. Given the presence of eosinophilic infiltration of the tracheal wall, one has to consider systemic vasculitis, asthma with eosinophilia despite normal spirometric data, and more unusual organisms that are difficult to grow and culture like cryptococcus, etc. We will discuss further with primary care service.
--- NOTE | 2017-10-20 12:30 | Progress Note ---
Subjective Date of Service: Oct 20, 2017. Subjective Pt evaluation today including: conversation w/ patient, conversation w/ family , physical exam, chart review, lab review, review of studies, conversation w/ retail consultant, review of inpatient medication list Feeling okay, still cough with yellow sputum, some dyspnea on exertion, occasional wheezing Deny fever and chill, deny hemoptysis Problem List Medical Problems: (1) Acute bronchitis Status: Acute (2) COPD exacerbation Status: Acute (3) COPD exacerbation Status: Acute (4) Failure of outpatient treatment Status: Acute (5) Lactic acidosis Status: Acute (6) Lower extremity edema Status: Acute (7) Mucus plugging of bronchi Status: Acute (8) Sepsis Status: Acute (9) SOB (shortness of breath) Status: Acute (10) SOB (shortness of breath) Status: Acute (11) SOB (shortness of breath) Status: Acute Review of Systems Constitutional: + weakness, + fatigue, No fever, No chills, No sweats, No weight loss, No problem reported Eyes: No worsening of vision, No eye pain, No redness, No discharge, No diplopia ENT: No hearing loss, No unusual epistaxis, No nasal symptoms, No sore throat, No tinnitus, No dental problems, No trouble swallowing Respiratory: + see HPI, No cough Cardiac: No chest pain, No orthopnea, No PND, No edema, No claudication, No palpitations Abdomen: No pain, No nausea, No vomiting, No diarrhea, No constipation Musculoskeletal: No joint pain, No muscle pain, No swelling, No calf pain Male : No dysuria, No urinary frequency, No incontinence, No nocturia more than once/night, No slowing stream, No hematuria Neurologic: No memory loss, No paralysis, No weakness, No numbness/tingling, No vertigo, No balance problems Psychiatric: No depression symptoms, No anhedonism, No anxiety, No insomnia, No substance abuse Heme: No abnormal bleeding/bruising, No clotting problems, No swollen lymph nodes, No night sweats Endo: No fatigue, No excessive thirst, No excessive urination Skin: No rash, No itch, No new/changing skin lesions, No color change, No bleeding Objective Vital Signs Date Time Temp Pulse Resp B/P (MAP) Pulse Ox O2 Delivery O2 Flow Rate FiO2 10/20/17 11:08 60 20 97 Nasal Cannula 2.0 1/20/18 08:20 36.6 73 18 124/69 (87) 96 Room Air 10/20/17 08:00 Nasal Cannula 2.0 10/20/17 07:01 74 20 97 Nasal Cannula 2.0 10/20/17 04:00 Nasal Cannula 2.0 10/20/17 03:44 36.5 66 18 104/63 (77) 95 Room Air 10/19/17 23:59 Nasal Cannula 2.0 10/19/17 23:59 36.7 72 18 116/64 (81) 94 Nasal Cannula 2.0 10/19/17 21:26 69 20 96 Nasal Cannula 2.0 10/19/17 20:00 Nasal Cannula 2.0 10/19/17 19:34 36.6 69 20 118/67 (84) 95 Room Air 10/19/17 16:00 Nasal Cannula 2.0 10/19/17 15:52 36.5 73 20 146/73 (97) 96 Nasal Cannula 2.0 10/19/17 13:12 37.1 71 24 136/65 95 Nasal Cannula 2.0 10/19/17 12:52 72 24 132/73 95 Nasal Cannula 2.0 Physical Exam General Appearance: WD/WN, no apparent distress, + pertinent finding (pleasant and conversational) Eyes: normal inspection, PERRL, EOMI, sclerae normal ENT: normal ENT inspection, hearing grossly normal, pharynx normal Neck: supple, no adenopathy, thyroid normal, no JVD, no carotid bruits, trachea midline Respiratory/Chest: chest non-tender, no respiratory distress, no accessory muscle use, + decreased breath sounds, + rales (spirometric), + rhonchi, + wheezing Cardiovascular: regular rate, rhythm, no edema, no gallop, no JVD, no murmur Abdomen: normal bowel sounds, non tender, soft, no organomegaly, no pulsatile mass Extremities: normal range of motion, non-tender, normal inspection, no pedal edema, no calf tenderness, normal capillary refill, pelvis stable Neurologic/Psychiatric: furnace liner II-XII nml as tested, no motor/sensory deficits, alert, normal mood/affect, oriented x 3 Skin: normal color, warm/dry, no rash Lymphatic: no adenopathy Laboratory Results Last 24 Hours Test 10/19/17 18:36 10/20/17 01:47 10/20/17 06:28 Lactic Acid Level 2.8 mmol/L 2.4 mmol/L Troponin I < 0.015 ng/ml < 0.015 ng/ml White Blood Count 18.44 K/uL Red Blood Count 4.33 M/uL Hemoglobin 13.4 g/dL Hematocrit 40.3 % Mean Corpuscular Volume 93.1 fL Mean Corpuscular Hemoglobin 30.9 pg Mean Corpuscular Hemoglobin Concent 33.3 g/dl RDW Standard Deviation 50.6 fL RDW Coefficient of Variation 14.8 % Platelet Count 222 K/uL Mean Platelet Volume 10.1 fL Sodium Level 134 mmol/L Potassium Level 4.6 mmol/L Chloride Level 101 mmol/L Carbon Dioxide Level 24 mmol/L Anion Gap 9.0 mmol/L Blood Urea Nitrogen 20 mg/dl Creatinine 0.97 mg/dl Est Creatinine Clear Calc Drug Dose 94.6 ml/min Estimated GFR () 93.9 Estimated GFR (Non- 81.0 BUN/Creatinine Ratio 20.3 Random Glucose 158 mg/dl Calcium Level 8.9 mg/dl Magnesium Level 2.4 mg/dl Assessment and Plan 66-year-old male admitted on 10/19/2016 with acute respiratory failure with history of possibly COPD Acute respiratory failure possibly COPD exacerbation History of COPD exacerbation hx of 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 with 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 previous extensive workup including negative TB In this admission negative influenza I heard the print and pattern designer saw patient, we'll discuss the planning, possible planning bronchoscopy on Sunday Continue intravenous Solu-Medrol , Symbicort, duo nebs, discussed with print and pattern designer to start antibiotic or not, because patient do have leukocytosis prior to this admission yellow sputum and elevated neck takes Crohn's disease we'll continue his mesalamine Insomnia , continue Seroquel at bedtime Hypothyroidism continue Synthroid, repeat TSH DVT prevention is an Lovenox Discussed with patient about a care plan answer all questions Continued [facility] stay due to: multiple IV medications needed Discharge planning: home
[2017-10-20] MEDS: GUAIFENESIN/CODEINE 200MG/20MG 10ML UDC PO PRN (16:40)
[2017-10-20] MEDS ORDERED: NURSING VERBAL MED ORDER ONE (17:30)
[2017-10-20] MEDS: BENZONATATE 100MG CAP PO PRN (17:59)
[2017-10-20] MEDS: DOXEPIN HCL 6 MG PO SCH (19:54)
[2017-10-21] VITALS (10 sets, daily range): BP systolic 116–129; BP diastolic 61–73; PULSE 67–98; TEMP 36.4–36.7; O2SAT 93–98
[2017-10-21] MEDS: METHYLPREDNISOLONE IV 40 MG in SYRINGE 0 ML IV SCH ×3 (00:56→15:26)
[2017-10-21] MEDS: LEVOTHYROXINE 88 MCG TAB PO SCH (06:26)
[2017-10-21] MEDS: FORMOTEROL FUMA NEBULIZER SOLN 20 MCG/2 ML VIAL INH SCH ×2 (06:54→19:09)
[2017-10-21] MEDS: DORNASE ALFA 2.5 ML AMP INH SCH ×3 (06:54→19:24)
[2017-10-21] MEDS: ALBUT/IPRATROP 3MG/0.5MG NEB 3 ML VIAL INH SCH ×4 (06:54→19:08)
[2017-10-21] MEDS: BUDESONIDE/FORMOTEROL FUMARATE 160/4.5 60 PUFFS/INHALER INH SCH ×2 (07:51→19:56)
[2017-10-21] MEDS: MULTIVITAMIN TAB PO SCH (07:51)
[2017-10-21] MEDS: COLESTIPOL HCL 1 GM TAB PO SCH ×2 (07:51→21:15)
[2017-10-21] MEDS: AMLODIPINE BESYLATE 5 MG TAB PO SCH (07:51)
[2017-10-21] MEDS: HEPARIN SOD 5000 UNIT/0.5 ML CARP SQ SCH ×2 (07:52→20:01)
[2017-10-21] MEDS: SPIRONOLACTONE 25 MG TAB PO SCH (07:52)
[2017-10-21] MEDS: FUROSEMIDE 40 MG TAB PO SCH (07:53)
[2017-10-21] MEDS: CYANOCOBALAMIN 100 MCG TAB (VIT B-12) PO SCH (07:53)
[2017-10-21] MEDS: MESALAMINE 0.375 GM PO SCH (07:53)
[2017-10-21 08:21] LABS: CALCIUM 9.5 mg/dl (8.5-10.1); CREATININE 1.17 mg/dl (0.60-1.40); POTASSIUM 4.5 mmol/L (3.5-5.1)
--- NOTE | 2017-10-21 11:46 | PULMONARY PROGRESS NOTE ---
DATE: 10/21/2017 SUBJECTIVE: The patient evaluation today including: Conversation with patient, review of lab data, and inpatient medication list. He continues to improve, still dyspneic with modest exertion. Scheduled bronchoscopic intervention tomorrow. OBJECTIVE: VITAL SIGNS: Temperature 36.4, pulse 76 and regular, respiratory rate 18, blood pressure 127/72, O2 sat 94% on 2 liters. SKIN: Without lesion. HEENT: Atraumatic, normocephalic. PERRLA. LUNGS: Distant P&A with scattered wheeze. CARDIAC: Exam unchanged. ABDOMEN: Soft. EXTREMITIES: No pedal edema. ASSESSMENT: Stable and improving. Scheduled bronchoscopic intervention tomorrow.
--- NOTE | 2017-10-21 11:47 | Progress Note ---
Subjective Date of Service: Oct 21, 2017. Subjective Pt evaluation today including: conversation w/ patient, conversation w/ family , physical exam, chart review, lab review, review of studies, conversation w/ corporate learning consultant, review of inpatient medication list Generally feeling okay, was having cough spell last night, which was helped with Lázaro Guzmán, deny fever and chill , deny chest tight or palpitation, wheezing is better Problem List Medical Problems: (1) Acute bronchitis Status: Acute (2) COPD exacerbation Status: Acute (3) COPD exacerbation Status: Acute (4) Failure of outpatient treatment Status: Acute (5) Lactic acidosis Status: Acute (6) Lower extremity edema Status: Acute (7) Mucus plugging of bronchi Status: Acute (8) Sepsis Status: Acute (9) SOB (shortness of breath) Status: Acute (10) SOB (shortness of breath) Status: Acute (11) SOB (shortness of breath) Status: Acute Review of Systems Constitutional: + weakness, No fever, No chills, No sweats, No weight loss, No fatigue, No problem reported Eyes: No worsening of vision, No eye pain, No redness, No discharge, No diplopia ENT: No hearing loss, No unusual epistaxis, No nasal symptoms, No sore throat, No tinnitus, No dental problems, No trouble swallowing Respiratory: + cough, + shortness of breath, No sputum, No wheezing, No dyspnea on exertion, No dyspnea at rest, No hemoptysis Cardiac: No chest pain, No orthopnea, No PND, No edema, No claudication, No palpitations Abdomen: No pain, No nausea, No vomiting, No diarrhea, No constipation Musculoskeletal: No joint pain, No muscle pain, No swelling, No calf pain Male : No dysuria, No urinary frequency, No incontinence, No nocturia more than once/night, No slowing stream, No hematuria Neurologic: No memory loss, No paralysis, No weakness, No numbness/tingling, No vertigo, No balance problems Psychiatric: No depression symptoms, No anhedonism, No anxiety, No insomnia, No substance abuse Heme: No abnormal bleeding/bruising, No clotting problems, No swollen lymph nodes, No night sweats Endo: No fatigue, No excessive thirst, No excessive urination Skin: No rash, No itch, No new/changing skin lesions, No color change, No bleeding Objective Vital Signs Date Time Temp Pulse Resp B/P (MAP) Pulse Ox O2 Delivery O2 Flow Rate FiO2 10/21/17 08:25 36.4 76 18 127/72 (90) 94 2.0 10/21/17 08:00 Nasal Cannula 2.0 10/21/17 06:55 98 20 95 Nasal Cannula 2.0 10/21/17 04:13 Room Air 10/21/17 03:38 36.5 67 22 127/71 (89) 96 Nasal Cannula 2.0 10/21/17 00:00 Room Air 10/20/17 23:45 36.3 72 22 115/53 (73) 96 Nasal Cannula 2.0 10/20/17 20:00 Room Air 10/20/17 19:55 98 20 95 Nasal Cannula 2.0 10/20/17 19:44 36.7 91 22 128/71 (90) 94 Nasal Cannula 2.0 10/20/17 16:00 Nasal Cannula 2.0 10/20/17 15:42 36.5 104 20 131/69 (89) 96 Nasal Cannula 2.0 10/20/17 14:25 84 20 98 Nasal Cannula 2.0 10/20/17 12:28 36.3 75 134/63 (86) 94 Room Air 10/20/17 12:00 Nasal Cannula 2.0 Physical Exam General Appearance: WD/WN, no apparent distress Eyes: normal inspection, PERRL, EOMI, sclerae normal ENT: normal ENT inspection, hearing grossly normal, pharynx normal Neck: supple, no adenopathy, thyroid normal, no JVD, no carotid bruits, trachea midline Respiratory/Chest: chest non-tender, normal breath sounds, no respiratory distress, no accessory muscle use, + decreased breath sounds, + rales Cardiovascular: regular rate, rhythm, no edema, no gallop, no JVD, no murmur Abdomen: normal bowel sounds, non tender, soft, no organomegaly, no pulsatile mass Extremities: normal range of motion, non-tender, normal inspection, no pedal edema, no calf tenderness, normal capillary refill, pelvis stable Neurologic/Psychiatric: automobile upholstery trim installer II-XII nml as tested, no motor/sensory deficits, alert, normal mood/affect, oriented x 3 Skin: normal color, warm/dry, no rash Lymphatic: no adenopathy Laboratory Results Last 24 Hours Test 10/21/17 07:31 10/21/17 10:33 Sodium Level 133 mmol/L Potassium Level 4.5 mmol/L Chloride Level 99 mmol/L Carbon Dioxide Level 22 mmol/L Anion Gap 12.0 mmol/L Blood Urea Nitrogen 21 mg/dl Creatinine 1.17 mg/dl Est Creatinine Clear Calc Drug Dose 78.4 ml/min Estimated GFR () 74.9 Estimated GFR (Non- 64.6 BUN/Creatinine Ratio 18.1 Random Glucose 140 mg/dl Calcium Level 9.5 mg/dl Free Thyroxine 1.11 ng/dl Free Triiodothyronine 2.56 pg/ml Assessment and Plan 66-year-old male admitted on 10/19/2016 with acute respiratory failure with history of possibly COPD Acute respiratory failure possibly COPD exacerbation, stable and improving History of COPD exacerbation hx of 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 with 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 previous extensive workup including negative TB In this admission negative influenza I heard the detailer furniture saw patient, planning bronchoscopy tomorrow, he'll midnight Leukocytosis possible from the using of steroid Continue intravenous Solu-Medrol , Symbicort, duo nebs, no need antibiotics for now Crohn's disease we'll continue his mesalamine Insomnia , continue Seroquel at bedtime Hypothyroidism continue Synthroid, TSH is mild now, T4 is normal, continue current medication Mild hyponatremia, will follow-up DVT prevention is an Lovenox Discussed with patient about a care plan answer all questions Continued [facility] stay due to: multiple IV medications needed Discharge planning: home
[2017-10-21] MEDS: BENZONATATE 100MG CAP PO PRN ×2 (15:14→21:15)
[2017-10-21] MEDS: GUAIFENESIN/CODEINE 200MG/20MG 10ML UDC PO PRN ×2 (15:14→21:14)
[2017-10-21] MEDS: DOXEPIN HCL 6 MG PO SCH (19:56)
[2017-10-22] VITALS (11 sets, daily range): BP systolic 118–146; BP diastolic 60–83; PULSE 72–90; TEMP 36.5–36.6; O2SAT 93–98
[2017-10-22] MEDS: METHYLPREDNISOLONE IV 40 MG in SYRINGE 0 ML IV SCH ×3 (00:12→16:09)
[2017-10-22] MEDS: LEVOTHYROXINE 88 MCG TAB PO SCH (06:25)
[2017-10-22 06:45] LABS: HEMATOCRIT 42.5 % (42-52); MEAN CELL VOLUME 93.8 fL (80-100); MEAN CORPUSCULAR HEMOGLOBIN 30.9 pg (25-34); MEAN CORPUSCULAR HGB CONC 32.9 g/dl (32-36); PLATELET COUNT 253 K/uL (130-400); RED CELL DISTRIBUTION WIDTH CV 14.8 % (11.5-14.5); RED CELL DISTRIBUTION WIDTH SD 50.6 fL (36.4-46.3); WHITE BLOOD COUNT 19.14 K/uL (4.8-10.8)
[2017-10-22] MEDS: ALBUT/IPRATROP 3MG/0.5MG NEB 3 ML VIAL INH SCH ×4 (07:02→20:00)
[2017-10-22] MEDS: FORMOTEROL FUMA NEBULIZER SOLN 20 MCG/2 ML VIAL INH SCH ×2 (07:02→20:47)
[2017-10-22] MEDS: DORNASE ALFA 2.5 ML AMP INH SCH ×2 (07:02→20:47)
[2017-10-22 07:12] LABS: CALCIUM 8.9 mg/dl (8.5-10.1); CREATININE 1.14 mg/dl (0.60-1.40); POTASSIUM 4.7 mmol/L (3.5-5.1)
[2017-10-22] MEDS ORDERED: SODIUM CHLORIDE 0.9% 1000ML 1,000 ML IV SCH (08:00)
--- NOTE | 2017-10-22 08:57 | Pre Sedation Assessment ---
Pre Sedation Assessment General Date of Sedation: Oct 22, 2017. Vital Signs Past 12 Hours Date Time Temp Pulse Resp B/P (MAP) Pulse Ox O2 Delivery O2 Flow Rate FiO2 10/22/17 07:49 36.6 72 18 146/83 (104) 95 Nasal Cannula 2.0 10/22/17 07:04 76 18 96 Nasal Cannula 2.0 10/22/17 04:15 Nasal Cannula 2.0 10/22/17 03:45 36.6 72 20 139/72 (94) 95 Room Air 10/22/17 00:23 Nasal Cannula 2.0 10/21/17 23:50 36.7 78 20 127/61 (83) 97 Nasal Cannula 2.0 Pre-Sedation Airway Assessment Smoking Status: Former Smoker Hx of Sleep Apnea: No Short Thick Neck: No Oral Cavity: WNL Mallampati Classification: Class II ASA Classification: Class III NPO Status Date of Last Intake of Fluids: Oct 22, 2017 Time of Last Intake of Fluids: 0200 Date of Last Intake of Solids: Oct 22, 2017 Time of Last Intake of Solids: 0000 Procedure Planning Contraindications for Sedation: None Current Medications Reviewed: Yes Notes The planned sedation has been discussed with the patient. Informed Consent was obtained. I have identified the patient, determined the appropriateness of sedation and have assessed the patient immediately prior to the procedure. All medicine(s) and interventions are by my order.
[2017-10-22] MEDS ORDERED: LIDOCAINE HCL 2% LOCAL 50ML VIAL INSTIL ONE (10:05)
[2017-10-22] MEDS ORDERED: LIDOCAINE VISCOUS 2% 100ML TOP ONE (10:05)
[2017-10-22] MEDS ORDERED: FENTANYL CITRATE INJ 50 MCG/1 ML 2 ML VIAL IV ONE (10:05)
[2017-10-22] MEDS ORDERED: LIDOCAINE 4% INH SOLN 4 ML BTL INH ONE (10:05)
[2017-10-22] MEDS ORDERED: LEVALBUTEROL 1.25MG/3ML NEB INH ONE (10:05)
[2017-10-22] MEDS ORDERED: MIDAZOLAM HCL 5 MG/ML 1 ML VIAL IV ONE (10:05)
--- NOTE | 2017-10-22 10:07 | Post Sedation Assessment ---
Post Sedation Assessment General Date of Sedation Oct 22, 2017. Vital Signs: Vital Signs Past 12 Hours Date Time Temp Pulse Resp B/P (MAP) Pulse Ox O2 Delivery O2 Flow Rate FiO2 10/22/17 09:55 96 18 156/80 98 Mask 6 10/22/17 09:50 96 18 160/88 98 Mask 6 10/22/17 09:45 95 17 133/95 98 Mask 6 10/22/17 09:40 114 18 126/106 98 Mask 10 10/22/17 09:35 111 18 134/72 95 Mask 6 10/22/17 09:30 68 18 157/80 96 Mask 6 10/22/17 09:25 64 18 156/79 98 Mask 6 10/22/17 09:15 64 18 141/66 98 Mask 6 10/22/17 08:00 Nasal Cannula 2.0 10/22/17 07:49 36.6 72 18 146/83 (104) 95 Nasal Cannula 2.0 10/22/17 07:04 76 18 96 Nasal Cannula 2.0 10/22/17 04:15 Nasal Cannula 2.0 10/22/17 03:45 36.6 72 20 139/72 (94) 95 Room Air 10/22/17 00:23 Nasal Cannula 2.0 10/21/17 23:50 36.7 78 20 127/61 (83) 97 Nasal Cannula 2.0 Post Procedure Recovery Score Activity: (2) Moves 4 extremities * Respiration: (2) Deep breath/cough Circulation: (2) +/-20% PreAnes Value Consciousness: (2) Fully Awake Oxygen Saturation: (1) O2 needed for >90% Post Anesthesia Score: 9 Discharge Sedation Level of Care: Fast Track Phase II Post Sedation Plan On clinical assessment, the patient appears to have tolerated the sedation without complications. Patient is recovering as anticipated. Patient will continue to be monitored by nursing and may be discharged when sedation discharge criteria are met per below protocol. Upon Completions of procedure and additional 15 minutes continue every 5 minute vital signs and the P.A.R. score; then discharge to a Phase I or Fast Track to Phase II per the following guidelines: * Discharge Patient to appropriate Phase II area if PAR is 8 or greater or return to pre- procedure baseline. The post - procedure orders will be as directed. * If PAR score is less than 8 or not return to pre-procedure baseline then patient will follow Phase I monitoring till PAR is reached for Phase II. The Phase I may be done in procedure room or may call to secure a Phase I area. * If naloxone or flumazenil are used for reversal, hold in Phase I for an additional 60 -120 minutes before discharge to Phase II. Please call the Sedation Physician to re-evaluate and complete post-note for discharge to Phase II area. Do NOT discharge from procedure sedation or Phase 1 until post- sedation evaluation note is complete by procedure /sedation MD Sedation Discharge Instructions to be given to the patient at discharge to home.
--- NOTE | 2017-10-22 11:41 | Hospitalist Progress Note ---
Hospitalist Progress Note Date of Service Oct 22, 2017. Subjective Pt evaluation today including: conversation w/ patient, physical exam, chart review, lab review, review of inpatient medication list Voiding: no voiding problems ROS Constitutional: no chills, aches, sweats or fever Respiratory: mild cough, non productive Cardiac: no chest pain, palpitations, edema, orthopnea or lightheadedness GI: no abdominal pain, nausea, vomiting, diarrhea or constipation : no dysuria or hesitancy Extremities: no joint pain or weakness Skin: no rash All other systems reviewed and negative Medications Medications (Trade) Dose Ordered Sig/Jeffery Route Start Time Stop Time Status Last Admin Dose Admin Sodium Chloride 1,000 ml @ 15 mls/hr Q24H IV 10/22/17 08:00 10/23/17 07:59 10/22/17 08:36 15 MLS/HR Midazolam HCl (Versed Inj) 8 mg ONE ONCE IV 10/22/17 10:05 10/22/17 10:08 DC 10/22/17 10:05 8 MG Fentanyl Citrate (Fentanyl Inj) 100 mcg ONE ONCE IV 10/22/17 10:05 10/22/17 10:08 DC 10/22/17 10:05 100 MCG Lidocaine HCl (VISCOUS LIDOCAINE 2% Soln) 2 ml ONE ONCE TOP 10/22/17 10:05 10/22/17 10:08 DC 10/22/17 10:05 2 ML Lidocaine HCl (Lidocaine 2% Preserved Inj) 40 ml ONE ONCE INSTIL 10/22/17 10:05 10/22/17 10:08 DC 10/22/17 10:05 40 ML Lidocaine HCl (Lidocaine 4% Inh Soln) 2 ml ONE ONCE INH 10/22/17 10:05 10/22/17 10:08 DC 10/22/17 10:05 2 ML Levalbuterol (Xopenex 1.25MG/ 3ML Neb) 3 mg ONE ONCE INH 10/22/17 10:05 10/22/17 10:08 DC 10/22/17 10:05 3 MG Objective Vital Signs Date Time Temp Pulse Resp B/P (MAP) Pulse Ox O2 Delivery O2 Flow Rate FiO2 10/22/17 11:13 76 18 94 Nasal Cannula 4.0 10/22/17 10:45 36.6 87 20 121/78 (92) 93 Nasal Cannula 4.0 10/22/17 10:15 36.6 90 20 118/70 (86) 93 Nasal Cannula 4.0 10/22/17 09:55 96 18 156/80 98 Mask 6 10/22/17 09:50 96 18 160/88 98 Mask 6 10/22/17 09:45 95 17 133/95 98 Mask 6 10/22/17 09:40 114 18 126/106 98 Mask 10 10/22/17 09:35 111 18 134/72 95 Mask 6 10/22/17 09:30 68 18 157/80 96 Mask 6 10/22/17 09:25 64 18 156/79 98 Mask 6 10/22/17 09:15 64 18 141/66 98 Mask 6 10/22/17 08:00 Nasal Cannula 2.0 10/22/17 07:49 36.6 72 18 146/83 (104) 95 Nasal Cannula 2.0 10/22/17 07:04 76 18 96 Nasal Cannula 2.0 10/22/17 04:15 Nasal Cannula 2.0 10/22/17 03:45 36.6 72 20 139/72 (94) 95 Room Air 10/22/17 00:23 Nasal Cannula 2.0 10/21/17 23:50 36.7 78 20 127/61 (83) 97 Nasal Cannula 2.0 10/21/17 20:30 Nasal Cannula 2.0 10/21/17 19:31 36.5 79 20 129/70 (89) 96 Nasal Cannula 2.0 10/21/17 19:10 81 20 97 Nasal Cannula 2.0 10/21/17 15:39 36.5 93 20 116/67 (83) 93 Room Air 10/21/17 15:32 Nasal Cannula 2.0 10/21/17 14:26 78 20 98 Nasal Cannula 2.0 10/21/17 12:10 36.6 72 16 116/73 (87) 94 Nasal Cannula 2.0 10/21/17 12:00 Nasal Cannula 2.0 10/21/17 11:51 71 20 97 Nasal Cannula 2.0 Physical Exam Notes: General: no distress Eyes: normal inspection, PERLL Respiratory: chest non tender, clear to auscultation, normal breath sounds, no respiratory distress, no accessory muscle use Cardiac: regular rate and rhythm, no rub or gallop, no murmur, no edema, no jvd GI/: active bowel sounds, no abd pain or tenderness, soft, non distended Extremities: normal range of motion, normal strength, non tender Neuro/Psych: alert and oriented x 3, normal mood and affect Skin: normal color, dry Laboratory Results Last 24 Hours Test 10/22/17 06:29 10/22/17 09:34 White Blood Count 19.14 K/uL Red Blood Count 4.53 M/uL Hemoglobin 14.0 g/dL Hematocrit 42.5 % Mean Corpuscular Volume 93.8 fL Mean Corpuscular Hemoglobin 30.9 pg Mean Corpuscular Hemoglobin Concent 32.9 g/dl RDW Standard Deviation 50.6 fL RDW Coefficient of Variation 14.8 % Platelet Count 253 K/uL Mean Platelet Volume 10.0 fL Sodium Level 132 mmol/L Potassium Level 4.7 mmol/L Chloride Level 100 mmol/L Carbon Dioxide Level 26 mmol/L Anion Gap 6.0 mmol/L Blood Urea Nitrogen 25 mg/dl Creatinine 1.14 mg/dl Est Creatinine Clear Calc Drug Dose 80.4 ml/min Estimated GFR () 77.2 Estimated GFR (Non- 66.6 BUN/Creatinine Ratio 22.3 Random Glucose 147 mg/dl Calcium Level 8.9 mg/dl Magnesium Level 2.5 mg/dl Assessment and Plan Mr. 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 Baseline is 2L at night. Would begin titrating solu-medrol down tomorrow if oxygenation is continuing to improve Leukocytosis - likely secondary to steroid use Crohn's diseas - continue mesalamine Insomina - continue seroquel Hypothyroidism - TSH was 0.277 with T3 and T4 wnl - repeat tsh in a few weeks outpatient Hyponatremia - trending downward, 132 today, asymptomatic, will continue to trend. DVT prevention is an Lovenox
[2017-10-22] MEDS: BUDESONIDE/FORMOTEROL FUMARATE 160/4.5 60 PUFFS/INHALER INH SCH ×2 (11:58→20:19)
[2017-10-22] MEDS: COLESTIPOL HCL 1 GM TAB PO SCH ×2 (11:58→20:14)
[2017-10-22] MEDS: SPIRONOLACTONE 25 MG TAB PO SCH (11:59)
[2017-10-22] MEDS: AMLODIPINE BESYLATE 5 MG TAB PO SCH (11:59)
[2017-10-22] MEDS: CYANOCOBALAMIN 100 MCG TAB (VIT B-12) PO SCH (11:59)
[2017-10-22] MEDS: FUROSEMIDE 40 MG TAB PO SCH (11:59)
[2017-10-22] MEDS: MULTIVITAMIN TAB PO SCH (11:59)
[2017-10-22] MEDS: MESALAMINE 0.375 GM PO SCH (11:59)
[2017-10-22] MEDS: HEPARIN SOD 5000 UNIT/0.5 ML CARP SQ SCH ×2 (12:02→20:16)
--- NOTE | 2017-10-22 12:28 | OPERATIVE REPORT ---
DATE OF OPERATION: 10/22/2017 PROCEDURE: Fiberoptic bronchoscopy with bronchoalveolar lavage. INDICATIONS: History of chronic bronchiectasis/mucoid impaction/tracheitis with persistent symptoms of cough/chest congestion. ANESTHESIA PREOPERATIVELY: None. ANESTHESIA DURING PROCEDURE: IV fentanyl 100 mcg, IV Versed 8 mcg, 20 mL 2% Xylocaine spray above and below the cords, 4% viscous Xylocaine intranasally. DESCRIPTION OF PROCEDURE: Fiberoptic bronchoscope was inserted into the right naris with a moderate amount of difficulty and passed to the level of the true vocal cords. The cords appeared to approximate normally with phonation without evidence of lesions or paralysis. The area was anesthetized with 2% Xylocaine and the scope was passed through the cords into the trachea. A copious amount of secretion was seen adherent to the tracheal arenas and was lavaged until clear in the subglottic region. Posterior wall of the trachea showed mucosal irregularity with whitish plaque-like material adherent to the insinuated into the mucosa. The posterior wall of the trachea showed evidence for tracheomalacia with EDAC or endoscopic dynamic airway collapse involving the right mainstem bronchus with significant dynamic airway collapse of the right mainstem bronchus to the bronchus intermedius. A copious amount of mucopurulent secretion was lavaged from the right and left tracheobronchial tree. The behzad was sharp. The left tracheobronchial tree was explored initially and no endobronchial lesions were seen. Left upper lobe, the atypical apical-posterior and anterior segments, lingular subdivision with the superior and inferior segments and all basilar segments of left lower lobe were found to be free of endobronchial lesions down to subsegmental bronchi. Copious amount of mucopurulent secretion lavaged from all lobar and segmental bronchi until clear. A moderate degree of global inflammatory mucosal change was seen. The scope was then withdrawn to the behzad, right main stem bronchus was explored. The right upper lobe, the apical posterior, anterior segments, bronchus intermedius, right middle lobe and the medial and lateral segments were virtually occluded with thick mucopurulent secretion and lavaged until clear. The right lower lobe at the takeoff the bronchial orifice was completely occluded by foreign body and appeared to be a "kernel" of corn. This was able to be suctioned, but utilizing manual compression suction port, I was able to drag the foreign body out of the tracheobronchial tree. The scope was then reentered into the right naris and passed to the level of the true vocal cords and then passed through the cords into the right tracheobronchial tree. The right lower lobe then was copiously lavaged with normosol and additional purulence was collected and sent for appropriate studies. The scope was then withdrawn into the trachea and several brushings were taken of the posterior tracheal wall and sent for cytologic examination. A minimal amount of bleeding was encountered which abated spontaneously. The scope was withdrawn and some mild to moderate epistaxis was encountered. Applying manual compression to the nasal bridge and right naris stopped the bleeding entirely and no further intervention was required. The patient was given a nebulizer treatment with Xopenex 1.25 mg and then transferred to the telemetry unit hemodynamically stable with no signs of respiratory compromise. Will await microbiological and cytologic examination of the bronchial washings. The foreign body was sent also for analysis. I attest to the content of the Intraoperative Record and any orders documented therein. Any exception s are noted below.
[2017-10-22] MEDS: GUAIFENESIN/CODEINE 200MG/20MG 10ML UDC PO PRN (17:29)
[2017-10-22] MEDS: BENZONATATE 100MG CAP PO PRN ×2 (17:29→22:18)
[2017-10-22] MEDS: DOXEPIN HCL 6 MG PO SCH (22:18)
[2017-10-23] MEDS: METHYLPREDNISOLONE IV 40 MG in SYRINGE 0 ML IV SCH ×2 (00:21→08:00)
[2017-10-23] MEDS: GUAIFENESIN/CODEINE 200MG/20MG 10ML UDC PO PRN (00:21)
[2017-10-23 03:25] VITALS: BP 129/64; PULSE 68; TEMP 36.3; O2SAT 94
[2017-10-23] MEDS: LEVOTHYROXINE 88 MCG TAB PO SCH (05:44)
[2017-10-23] MEDS: ALBUT/IPRATROP 3MG/0.5MG NEB 3 ML VIAL INH SCH (07:35)
[2017-10-23] MEDS: FORMOTEROL FUMA NEBULIZER SOLN 20 MCG/2 ML VIAL INH SCH (07:36)
[2017-10-23 07:38] VITALS: PULSE 69; O2SAT 95
[2017-10-23 07:38] LABS: CALCIUM 9.1 mg/dl (8.5-10.1); CREATININE 1.15 mg/dl (0.60-1.40); POTASSIUM 4.6 mmol/L (3.5-5.1)
[2017-10-23] MEDS: SPIRONOLACTONE 25 MG TAB PO SCH (08:00)
[2017-10-23] MEDS: BUDESONIDE/FORMOTEROL FUMARATE 160/4.5 60 PUFFS/INHALER INH SCH (08:00)
[2017-10-23] MEDS: FUROSEMIDE 40 MG TAB PO SCH (08:01)
[2017-10-23] MEDS: MULTIVITAMIN TAB PO SCH (08:01)
[2017-10-23] MEDS: CYANOCOBALAMIN 100 MCG TAB (VIT B-12) PO SCH (08:01)
[2017-10-23] MEDS: AMLODIPINE BESYLATE 5 MG TAB PO SCH (08:01)
[2017-10-23] MEDS: MESALAMINE 0.375 GM PO SCH (08:02)
[2017-10-23] MEDS: HEPARIN SOD 5000 UNIT/0.5 ML CARP SQ SCH (08:03)
[2017-10-23] MEDS: DORNASE ALFA 2.5 ML AMP INH SCH (08:14)
[2017-10-23 08:15] VITALS: PULSE 70; O2SAT 95
[2017-10-23 08:23] VITALS: BP 120/73; PULSE 66; TEMP 36.4; O2SAT 95
[2017-10-23] MEDS: COLESTIPOL HCL 1 GM TAB PO SCH (09:40)
[2017-10-23] MEDS ORDERED: PRED20TA PO (10:30)
--- NOTE | 2017-10-23 10:36 | Discharge Instructions ---
Discharge Instructions Date of Service Oct 23, 2017. Admission Reason for Admission: Dyspnea On Exertion, cough, bronchiectasis Discharge Discharge Diagnosis / Problem: Bronchiectasis, tracheomalacia, s/p bronchoscopy Discharge Goals Goal(s): Improve function, Diagnostic testing (follow up culture and biopsy results) Activity Recommendations Activity Limitations: resume your previous activity . Instructions / Follow-Up Instructions / Follow-Up Medications: - PREDNISONE: 40mg daily x 3 days then 30mg daily x 3 days then 20mg daily x 3 days then 10mg daily x 3 days and stop s/p bronchoscopy, copious amounts of sputum suctioned, foreign body removed from right lower lobe, samples sent for culture, cytology, pathology FOLLOW UP - call office of Dr. Alamo for follow up in 1-2 weeks Current Hospital Diet Patient's current hospital diet: Regular Diet Discharge Diet Recommended Diet: Regular Diet Procedures Procedures Performed: Bronchoscopy Pending Studies Studies pending at discharge: yes List of pending studies: culture and pathology results from bronchoscopy, results will be from Dr. Alamo Medical Emergencies . Who to Call and When: Medical Emergencies: If at any time you feel your situation is an emergency, please call 911 immediately. . Non-Emergent Contact Non-Emergency issues call your: Primary Care Provider, Latin Professor Call Non-Emergent contact if: you have a fever, you have any medication questions . . "Provider Documentation" section prepared by Antonio Munoz. . VTE Core Measure Inpt VTE Proph given/why not?: Unfractionated heparin SQ [place] Drug Monitoring Program Search Results: no issues identified
[2017-10-23 10:52] VITALS: BP 120/73; PULSE 66; TEMP 36.4; O2SAT 95
--- NOTE | 2017-10-24 07:51 | Discharge Summary ---
Discharge Summary Date of Service Oct 23, 2017. Discharge Summary Admission Date: Oct 21, 2017 at 11:42 Discharge Date: Oct 23, 2017 Discharge Disposition: Home Principal Diagnosis: Bronchiectasis, tracheitis Problems/Secondary Diagnoses: Acute dyspnea Pulmonary hypertension h/o eosinophilic bronchitis Procedures: Bronchoscopy with lavage, suctioning, biopsies on 10/[address] Garcia Consultations: Pulmonology Medication Reconciliation Changed Medications: Prednisone (Prednisone) 20 Mg Tab 40 MG PO UD, #15 TAB 0 Refills (Changed from: DAILY; Refills: ) 40mg daily x 3 days then 30mg x 3 days then 20mg x 3 days then 10mg x 3 days then stop Continued Medications: Albuterol Sulf (Proventil 0.083% 2.5MG/3ML) 2.5 Mg/3 Ml Nebu 2.5 MG INH Q4 PRN for Shortness of Breath, EA Albuterol Sulfate (Proair Respiclick) 108 Mcg/Act Aer 2 PUFFS INH QID PRN for SOB/Wheezing Amlodipine (Norvasc) 5 Mg Tab 5 MG PO QAM, TAB Benzonatate (Tessalon Perles) 100 Mg Cap 1 CAP PO TID PRN for Cough for 10 Days, #30 CAP Budesonide/Formoterol Fumarate (Symbicort 160/4.5 Inhaler) 120 Puffs/ Aero 2 PUFF INH BID, #30 Cholecalciferol (Vitamin D3) 1,000 Unit Tab 1 TAB PO QAM for 90 Days, #90 TAB 3 Refills Colestipol Hcl (Colestipol Hcl) 1 Gm Tab 1 GM PO BID Cyanocobalamin (Vitamin B-12) 100 Mcg Tab 100 MCG PO QAM, TAB Dornase Robin (Pulmozyme) 1 Mg/Ml Luz Maria 1 INHA INH BID Doxepin Hcl (Sleep) (Silenor) 3 Mg Tab 1 TAB PO HS Furosemide (Lasix) 40 Mg Tab 40 MG PO QAM, TAB Guaifenesin-Codeine (Guaiatussin Ac) 1 Syp Syp 5 ML PO TID PRN for RN Home O2 Therapy (Oxygen) Gas 2 LITERS NA HS, BTL Homeopathic Products (Sleep Medicine) 1 Tab Tab 1 TAB PO HS Ipratropium-Albuterol (Duoneb) 3 Ml Nebu 1 TREATMENT INH TID, INHA Levothyroxine Sodium (Synthroid) 88 Mcg Tab 88 MCG PO QAM, #90 Losartan Potassium (Losartan Potassium) 50 Mg Tab 50 MG PO QAM Mesalamine (Apriso) 0.375 Gm Cap 4 CAP PO QAM Multivitamin (Multivitamin) Tab 1 TAB PO QAM, TAB Spironolactone (Aldactone) 25 Mg Tab 25 MG PO DAILY, TAB Tadalafil (Cialis) 10 Mg Tab 10 MG PO UD, TAB Tiotropium [place] (Spiriva Handihaler) 5 Puff/90 Mcg Aerp 1 PUFF INH QAM Vitamin B Cmplx/Vitc/Folic Ac (Nephrocaps) Cap 1 CAP PO QAM, CAP Discontinued Medications: Nystatin (Nystatin Suspension) 1 Ml Susp 5 ML PO TID Discharge Exam Patient feeling better in the morning, coughing less after bronchoscopy, breathing easier, wanting to go home. Eating well, moving bowels, urinating. Discussed going home on Prednisone, close follow up with Dr. Alamo for results of bronchoscopy. Review of Systems: Constitutional: No fever, No chills, No sweats, No weight loss, No weakness , No fatigue, No problem reported Eyes: No worsening of vision, No eye pain, No redness, No discharge, No diplopia, No problem reported ENT: No hearing loss, No unusual epistaxis, No nasal symptoms, No sore throat, No tinnitus, No dental problems, No trouble swallowing, No problem reported Respiratory: + cough, + sputum, + dyspnea on exertion, No wheezing, No shortness of breath, No dyspnea at rest, No hemoptysis Cardiovascular: No chest pain, No orthopnea, No PND, No edema, No claudication, No palpitations, No problem reported Abdomen: No pain, No nausea, No vomiting, No diarrhea, No constipation, No GI bleeding, No problem reported Musculoskeletal: No joint pain, No muscle pain, No swelling, No calf pain, No problem reported Genitourinary - Male: No hematuria, No dysuria, No urinary frequency, No urinary urgency Neurologic: No memory loss, No paralysis, No weakness, No numbness/tingling , No vertigo, No balance problems, No problem reported Psychiatric: No depression symptoms, No anhedonism, No anxiety, No insomnia , No substance abuse, No problem reported Endocrine: No fatigue, No excessive thirst, No excessive urination, No problem reported Hematologic / Lymphatic: No abnormal bleeding/bruising, No clotting problems , No swollen lymph nodes, No night sweats, No problem reported Integumentary: No rash, No itch, No new/changing skin lesions, No color change, No bleeding, No problem reported Physical Exam: General Appearance: WD/WN, no apparent distress Eyes: normal inspection, EOMI, sclerae normal ENT: normal ENT inspection, hearing grossly normal, pharynx normal Neck: supple, no adenopathy, no JVD, trachea midline Respiratory/Chest: chest non-tender, normal breath sounds, no respiratory distress, no accessory muscle use, + rhonchi (scattered, much improved from day before) Cardiovascular: regular rate, rhythm, no edema, no gallop, no JVD, no murmur , normal peripheral pulses Abdomen / GI: normal bowel sounds, non tender, soft, no organomegaly Extremities: normal inspection, no calf tenderness, normal capillary refill , no pedal edema, normal range of motion, pelvis stable Neurologic/Psychiatric: scientologist II-XII nml as tested, no motor/sensory deficits , alert, normal mood/affect, normal reflexes, oriented x 3 Skin: normal color, warm/dry, no rash Hospital Course Mr. 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 previous extensive workup including negative TB - flu swab negative - bronchoscopy on 10/22 with suctioning of copious secretions bilaterally, sent for culture, biopsies taken, foreign body removed from right lower lobe - treated with Solu Medrol inpatient, will change to Prednisone 40mg daily, taper over next 12 days - follow up closely with pulmonology Leukocytosis - likely secondary to steroid use Crohn's diseas - continue mesalamine Insomina - continue seroquel Hypothyroidism - TSH was 0.277 with T3 and T4 wnl - repeat tsh in a few weeks outpatient Hyponatremia - stable DVT prevention is an Lovenox Total Time Spent: Greater than 30 minutes This includes examination of the patient, discharge planning, medication reconciliation, and communication with other providers. Discharge Instructions Please refer to the electronic Patient Visit Report (Discharge Instructions) for additional information. Follow-Up Dr. Alamo in one week Dr. Cook in two weeks Additional Copies To Jocelyne Cook M.D.; Alexander Alamo MD
[2017-11-15] MEDS ORDERED: LOPE1TAB25 PO (10:25)
[2017-11-15] MEDS ORDERED: PRED20TA PO (10:25)
[2017-11-15 19:05] LABS: HERPES SIMPLEX VIRUS CULT NOT ISOLATED (NOT ISOLATED)
== END 2017-10-23 11:00 | disposition home or self-care (01) | DRG 166 ==
LOC: C.EDB 09:59 → C.2T 12:06 → EDBEDREQ 12:09 → ENRESERV 12:34 → OBSVTOIN 10-21 11:42
PROVIDERS: ADMIT Internal Medicine; ATTEND Internal Medicine
PROC: 0B918ZZ Drainage of Trachea, Via Natural or Artificial Opening Endoscopic (ICD-10-PCS; principal; 2017-10-22 09:00)
PROC: 0B9J8ZX Drainage of Left Lower Lung Lobe, Via Natural or Artificial Opening Endoscopic, Diagnostic (ICD-10-PCS; principal; 2017-10-22 09:00)
PROC: 0B9F8ZX Drainage of Right Lower Lung Lobe, Via Natural or Artificial Opening Endoscopic, Diagnostic (ICD-10-PCS; principal; 2017-10-22 09:00)
PROC: 0BC68ZZ Extirpation of Matter from Right Lower Lobe Bronchus, Via Natural or Artificial Opening Endoscopic (ICD-10-PCS; principal; 2017-10-22 09:00)
DX: J47.1 Bronchiectasis with (acute) exacerbation (principal); J96.01 Acute respiratory failure with hypoxia; E87.1 Hypo-osmolality and hyponatremia; T17.528A Food in bronchus causing other injury, initial encounter; K50.90 Crohn's disease, unspecified, without complications; X58.XXXA Exposure to other specified factors, initial encounter; B96.89 Other specified bacterial agents as the cause of diseases classified elsewhere; J39.8 Other specified diseases of upper respiratory tract; R04.0 Epistaxis; I27.20 Pulmonary hypertension, unspecified; D72.829 Elevated white blood cell count, unspecified; T38.0X5A Adverse effect of glucocorticoids and synthetic analogues, initial encounter; E03.9 Hypothyroidism, unspecified; G47.00 Insomnia, unspecified; Z99.81 Dependence on supplemental oxygen; Z87.891 Personal history of nicotine dependence; Z79.51 Long term (current) use of inhaled steroids; Z79.52 Long term (current) use of systemic steroids; Z79.899 Other long term (current) drug therapy

== ENCOUNTER → 2017-11-26 | Day surgery (SDC) | payer BC ==
[2017-11-15 10:26] VITALS: Ht 185.4 cm; Wt 105.5 kg
[~2017-11-26] VITALS: Ht 185.4 cm; Wt 105.5 kg
[~2017-11-26] MED LIST changes: -ALBU18002 INH; +ALBUT/IPRATROP 3MG/0.5MG NEB 3 ML VIAL INH ONE; -AMLO-110 PO; +DOXE1TAB2 PO; +FENTANYL CITRATE INJ 50 MCG/1 ML 2 ML VIAL ONE; +LIDOCAINE HCL 2% 2 ML VIAL (20MG/ML) ONE; +LOPE1TAB25 PO; +MIDAZOLAM HCL 1 MG/ML 2ML VIAL ONE; -NYSS/ PO; +PRED20TA PO; +PROPOFOL IV EMULSION 10 MG/ML 20 ML VIAL IV ONE; +SPIR25TA89 PO
[2017-11-26 14:30] VITALS: TEMP 36.4
--- NOTE | 2017-11-26 15:33 | Endo History and Physical ---
History & Physical Date of Service: Nov 26, 2017. Chief Complaint: TRACHEITIS Referring Physician: DR. NGUYEN History of Present Illness For EGD with Song Past Surgical History Hx Cardiac Surgery: Yes (CARDIAC CATH NO STENT ) Hx Abdominal Surgery: No Hx Post-Op Nausea and Vomiting: No Hx Cancer Surgery: No Hx Thoracic Surgery: No Hx Orthopedic: No Hx Urinary Tract Surgery: No Social History Smoking Status: Former Smoker Hx Substance Use: No Hx Alcohol Use: No Allergies Coded Allergies: No Known Allergies (Verified , 11/26/17) Current Medications Reported Home Medications Medications Dose Route/Sig Max Daily Dose Days Date Category Loperamide Hcl 2 Mg Tab 2 Mg PO BID 11/15/17 Reported Prednisone 20 Mg Tab 20 Mg PO QAM 11/15/17 Reported Silenor (Doxepin Hcl (Sleep)) 3 Mg Tab 1 Tab PO HS 10/19/17 Reported Aldactone (Spironolactone) 25 Mg Tab 25 Mg PO QAM 10/19/17 Reported Vitamin D3 (Cholecalciferol) 1,000 Unit Tab 1 Tab PO QAM 90 08/10/17 Reported Nephrocaps (Vitamin B Complex/Vit C/Folic Acid) Cap 1 Cap PO QAM 08/10/17 Reported Cialis (Tadalafil) 10 Mg Tab 10 Mg PO UD 08/10/17 Reported Guaiatussin Ac (Guaifenesin-Codeine) 1 Syp Syp 5 Ml PO TID PRN 08/10/17 Reported Sleep Medicine (Homeopathic Products) 1 Tab Tab 1 Tab PO HS 08/10/17 Reported Apriso (Mesalamine) 0.375 Gm Cap 4 Cap PO QAM 07/09/17 Reported Pulmozyme (Dornase Robin) 1 Mg/Ml Luz Maria 1 Inha INH BID 07/09/17 Reported Tessalon Perles (Benzonatate) 100 Mg Cap 1 Cap PO TID PRN 10 07/09/17 Reported Oxygen Gas 2 Liters NA HS 05/22/17 Reported Losartan Potassium 50 Mg Tab 50 Mg PO QAM 03/12/17 Reported Lasix (Furosemide) 40 Mg Tab 40 Mg PO QAM 03/12/17 Reported Symbicort 160/4.5 Inhaler (Budesonide/Formoterol Fumarate) 120 Puffs/ Aero 2 Puff INH BID 02/10/17 Reported Duoneb (Ipratropium-Albuterol) 3 Ml Nebu 1 Treatment INH TID 02/10/17 Reported Proventil 0.083% 2.5MG/3ML (Albuterol Sulf) 2.5 Mg/3 Ml Nebu 2.5 Mg INH Q4 PRN 02/10/17 Reported Spiriva Handihaler (Tiotropium [place]) 5 Puff/90 Mcg Aerp 1 Puff INH QAM 12/12/16 Reported Colestipol Hcl 1 Gm Tab 1 Gm PO BID 12/12/16 Reported Synthroid (Levothyroxine Sodium) 88 Mcg Tab 88 Mcg PO QAM 05/31/16 Reported Multivitamin (Multivitamins) Tab 1 Tab PO QAM 05/31/16 Reported Vitamin B-12 (Cyanocobalamin) 100 Mcg Tab 100 Mcg PO QAM 05/31/16 Reported Vital Signs Weight (Kilograms): 105.45 Height (Feet): 6 Height (Inches): 1 Date Time Temp Pulse Resp B/P (MAP) Pulse Ox O2 Delivery O2 Flow Rate FiO2 11/26/17 14:30 36.4 66 22 149/80 (103) 94 Room Air Physical Exam General Appearance: + obese Respiratory/Chest: Respiratory effort: no dyspnea, pertinent finding (cough) Cardiovascular: Heart Auscultation: RRR Abdomen: Inspection & Palpation: soft Assessment and Plan cough for EGD with Song
--- NOTE | 2017-11-26 15:48 | Discharge Instructions ---
Endoscopy Patient Instructions Date / Procedure(s) Performed Nov 26, 2017. EGD Allergy Information Coded Allergies: No Known Allergies (Verified , 11/26/17) Discharge Date / Findings Nov 26, 2017. Normal EGD with Song placement Medication Instructions Restart Stopped Medication(s): avoid acid reducing meds Reported Home Medications Medications Dose Route/Sig Max Daily Dose Days Date Category Loperamide Hcl 2 Mg Tab 2 Mg PO BID 11/15/17 Reported Prednisone 20 Mg Tab 20 Mg PO QAM 11/15/17 Reported Silenor (Doxepin Hcl (Sleep)) 3 Mg Tab 1 Tab PO HS 10/19/17 Reported Aldactone (Spironolactone) 25 Mg Tab 25 Mg PO QAM 10/19/17 Reported Vitamin D3 (Cholecalciferol) 1,000 Unit Tab 1 Tab PO QAM 90 08/10/17 Reported Nephrocaps (Vitamin B Complex/Vit C/Folic Acid) Cap 1 Cap PO QAM 08/10/17 Reported Cialis (Tadalafil) 10 Mg Tab 10 Mg PO UD 08/10/17 Reported Guaiatussin Ac (Guaifenesin-Codeine) 1 Syp Syp 5 Ml PO TID PRN 08/10/17 Reported Sleep Medicine (Homeopathic Products) 1 Tab Tab 1 Tab PO HS 08/10/17 Reported Apriso (Mesalamine) 0.375 Gm Cap 4 Cap PO QAM 07/09/17 Reported Pulmozyme (Dornase Robin) 1 Mg/Ml Luz Maria 1 Inha INH BID 07/09/17 Reported Tessalon Perles (Benzonatate) 100 Mg Cap 1 Cap PO TID PRN 10 07/09/17 Reported Oxygen Gas 2 Liters NA HS 05/22/17 Reported Losartan Potassium 50 Mg Tab 50 Mg PO QAM 03/12/17 Reported Lasix (Furosemide) 40 Mg Tab 40 Mg PO QAM 03/12/17 Reported Symbicort 160/4.5 Inhaler (Budesonide/Formoterol Fumarate) 120 Puffs/ Aero 2 Puff INH BID 02/10/17 Reported Duoneb (Ipratropium-Albuterol) 3 Ml Nebu 1 Treatment INH TID 02/10/17 Reported Proventil 0.083% 2.5MG/3ML (Albuterol Sulf) 2.5 Mg/3 Ml Nebu 2.5 Mg INH Q4 PRN 02/10/17 Reported Spiriva Handihaler (Tiotropium [place]) 5 Puff/90 Mcg Aerp 1 Puff INH QAM 12/12/16 Reported Colestipol Hcl 1 Gm Tab 1 Gm PO BID 12/12/16 Reported Synthroid (Levothyroxine Sodium) 88 Mcg Tab 88 Mcg PO QAM 05/31/16 Reported Multivitamin (Multivitamins) Tab 1 Tab PO QAM 05/31/16 Reported Vitamin B-12 (Cyanocobalamin) 100 Mcg Tab 100 Mcg PO QAM 05/31/16 Reported Provider Instructions Activity Restrictions - No exercising or heavy lifting for 24 hours. - Do not drink alcohol the day of the procedure. - Do not drive a car or operate machinery until the day after the procedure. - Do not make any important decisions or sign important papers in 24 hours after the procedure. Following Day: - Return to full activity which may include returning to work/school. Diet Start your diet with liquids and light foods (jello, soup, juice, toast). Then eat your usual diet if not nauseated. Treatment For Common After Affects For mild abdominal pain, bloating, or excessive gas: - Rest - Eat lightly - Lie on right side Follow-Up Information Follow-up with DR. NGUYEN as scheduled Anesthesia Information What You Should Know You have had a procedure that required some medicine to reduce anxiety and discomfort. This treatment is called moderate sedation. After receiving the treatment, you may be sleepy, but you will be able to breathe on your own. The effects of the treatment may last for several hours. Follow these instructions along with Activity/Diet recommendations noted above: * Do NOT do anything where dizziness or clumsiness would be dangerous. * Rest quietly at home today, then you can be up and about tomorrow. * Have a responsible person stay with you the rest of today. * You may have had an I.V. today. If so, you may take the dressing off later today. Recommendations Call your doctor if: * Trouble breathing * Continuous vomiting for more than 24 hours * Temperature above 101 degrees * Severe abdominal pain or bloating * Pain not relieved by pain medicine ordered * There is increased drainage or redness from any incision * A large amount of rectal bleeding greater than 2-3 tablespoons. (If you had a polyp/s removed or have hemorrhoids, a small amount of blood - from the rectum is to be expected.) * You have any unanswered questions or concerns. IN THE EVENT OF A SERIOUS EMERGENCY, GO TO THE NEAREST EMERGENCY ROOM Your discharge instructions were prepared by provider Clay Schmitz. Patient Instructions Signature Page José Luis Boone Patient (or Guardian) Signature/Date: I have read and understand the instructions given to me by my caregivers. Caregiver/RN/Doctor Signature/Date: The above-named patient and/or guardian has received patient instructions on this date. + Original Patient Signature Page (only) stays with chart. Please make copy for patient.
--- NOTE | 2017-11-26 15:54 | GI REPORT ---
Procedure Date: 11/26/2017 3:21 PM Procedure: Upper GI endoscopy Indications: Chronic cough Medicines: Fentanyl 100 micrograms IV, Midazolam 2 mg IV, Propofol total dose 110 mg IV, Lidocaine 40 mg IV Complications: No immediate complications. Estimated Blood Loss: Estimated blood loss: none. Procedure: Pre-Anesthesia Assessment: - Prior to the procedure, a History and Physical was performed, and patient medications, allergies and sensitivities were reviewed. The patient's tolerance of previous anesthesia was reviewed. - The risks and benefits of the procedure and the sedation options and risks were discussed with the patient. All questions were answered and informed consent was obtained. After obtaining informed consent, the endoscope was passed under direct vision. Throughout the procedure, the patient's blood pressure, pulse, and oxygen saturations were monitored continuously. The scope was introduced through the mouth, and advanced to the second part of duodenum. The upper GI endoscopy was accomplished without difficulty. The patient tolerated the procedure well. Findings: The Z-line was regular and was found 49 cm from the incisors. The entire examined stomach was normal. The examined duodenum was normal. The CEBALLOS capsule with delivery system was introduced through the mouth and advanced into the esophagus, such that the CEBALLOS pH capsule was positioned 43 cm from the incisors, which was 6 cm proximal to the GE junction. The CEBALLOS pH capsule was then deployed and attached to the esophageal mucosa. The delivery system was then withdrawn. Endoscopy was utilized for probe placement and diagnostic evaluation. Impression: - Z-line regular, 49 cm from the incisors. - Normal stomach. - Normal examined duodenum. - The CEBALLOS pH capsule was deployed. - No specimens collected. Recommendation: - Discharge patient to home (ambulatory). - Recommend avoiding acid suppression medication for 2 days. - Return to referring physician as previously scheduled. Clay Schmitz M.D. Clay Schmitz MD 11/26/2017 3:53:22 PM This report has been signed electronically. Note Initiated On: 11/26/2017 3:21 PM I attest to the content of the Intraoperative Record and orders documented therein, exceptions below
--- NOTE | 2017-11-26 16:04 | Anesthesiology Progress Note ---
Anesthesia Post Op Note Date & Time Nov 26, 2017 at 16:03 Vital Signs Pain Intensity: 0 Vital Signs Past 12 Hours Date Time Temp Pulse Resp B/P (MAP) Pulse Ox O2 Delivery O2 Flow Rate FiO2 11/26/17 15:53 71 20 126/75 (92) 93 Mask 10 11/26/17 14:30 36.4 66 22 149/80 (103) 94 Room Air Notes Mental Status: alert / awake / arousable, participated in evaluation Pt Amnestic to Procedure: Yes Nausea / Vomiting: adequately controlled Pain: adequately controlled Airway Patency, RR, SpO2: stable & adequate BP & HR: stable & adequate Hydration State: stable & adequate Anesthetic Complications: no major complications apparent
[2017-11-26 16:23] VITALS: BP 154/85; PULSE 69; O2SAT 93
--- NOTE | 2017-11-30 15:35 | OPERATIVE REPORT ---
DATE OF OPERATION: 11/30/2017 REASON FOR PROCEDURE: Chronic cough possibly related to acid reflux. PROCEDURE: A 48-hour ambulatory pH monitoring through [facility] system. FINDINGS: The patient had the clip in place for 48 hours, making it a valid reading. The patient's overall DeMeester score was 11.4 indicating that he does not have significant acid reflux. The first 48 hours DeMeester score was 9.9. The second 48 hours was 11.8. During the 48 hours, the patient had 27 reflux periods. There were 61 symptoms recorded, but only 8 of these symptoms were related to reflux, that means, 53 were not. This would indicate a very low correlation with reflux to symptom score. IMPRESSION: The patient does not have significant acid reflux with low correlation between reflux episodes and his cough symptoms. I attest to the content of the Intraoperative Record and any orders documented therein. Any exception s are noted below.
== END | disposition home or self-care (01) ==
LOC: C.GI 14:05
PROVIDERS: ATTEND Internal Medicine Gastroenterology
DX: J04.10 Acute tracheitis without obstruction (principal); R05 Cough; Z87.891 Personal history of nicotine dependence; Z79.52 Long term (current) use of systemic steroids; Z79.899 Other long term (current) drug therapy

== ENCOUNTER 2017-12-13 15:29 | Inpatient (IN) | payer BC, OTHER ==
[~2017-12-13] VITALS: Ht 185.4 cm; Wt 104.3 kg
[~2017-12-13 15:29] MED LIST changes: -ALBUT/IPRATROP 3MG/0.5MG NEB 3 ML VIAL INH ONE; -FENTANYL CITRATE INJ 50 MCG/1 ML 2 ML VIAL ONE; -LIDOCAINE HCL 2% 2 ML VIAL (20MG/ML) ONE; -MIDAZOLAM HCL 1 MG/ML 2ML VIAL ONE; -PROPOFOL IV EMULSION 10 MG/ML 20 ML VIAL IV ONE
[2017-12-13] MEDS ORDERED: SODIUM CHLORIDE 0.9% 250ML 250 ML IV STA (16:14)
[2017-12-13] MEDS ORDERED: GUAIFENESIN 600 MG TABCR PO STA (16:14)
[2017-12-13] MEDS ORDERED: SODIUM CHLORIDE 0.65% NA SOLN 45 ML (OCEAN) ONE (16:15)
[2017-12-13] MEDS ORDERED: ALBUT/IPRATROP 3MG/0.5MG NEB 3 ML VIAL INH ONE ×2 (16:15→18:30)
[2017-12-13 16:33] VITALS: PULSE 92; O2SAT 92
--- NOTE | 2017-12-13 16:33 | DIAGNOSTIC IMAGING REPORT ---
CHEST ONE VIEW PORTABLE HISTORY: 67 years-old Male CHEST PAIN acute atypical chest pain COMPARISON: Chest radiograph 10/18/2017, CT chest 10/19/2017 TECHNIQUE: Portable AP view of the chest FINDINGS: Cardiomediastinal and hilar silhouettes are within normal limits. Emphysema with areas of chronic interstitial coarsening. Linear subsegmental bibasilar opacities suggest atelectasis. There is no pneumothorax, large pleural effusion, lobar airspace consolidation or overt pulmonary edema. Bones of the chest appear grossly intact. IMPRESSION: Emphysema without acute process. The above report was generated using voice recognition software. It may contain grammatical, syntax or spelling errors. Electronically signed by: Kang Isaac M.D. 12/13/2017 4:32 PM Dictated Date/Time: 12/13/2017 4:31 PM
[2017-12-13 16:35] LABS: BASO % 0.2 %; BASO ABS # 0.02 K/uL (0-0.2); EOS % 0.2 %; EOS ABS # 0.03 K/uL (0-0.5); HEMATOCRIT 41.4 % (42-52); HEMOGLOBIN 14.3 g/dL (14.0-18.0); IG# 0.05 K/uL (0.00-0.02); LYMPH % 3.6 %; LYMPH ABS # 0.46 K/uL (1.2-3.4); MEAN CELL VOLUME 92.8 fL (80-100); MEAN CORPUSCULAR HEMOGLOBIN 32.1 pg (25-34); MEAN CORPUSCULAR HGB CONC 34.5 g/dl (32-36); MEAN PLATELET VOLUME 10.6 fL (7.4-10.4); MONO % 5.7 %; MONO ABS # 0.73 K/uL (0.11-0.59); NEUT % 89.9 %; NEUT ABS # 11.58 K/uL (1.4-6.5); PLATELET COUNT 282 K/uL (130-400); RED CELL DISTRIBUTION WIDTH CV 16.3 % (11.5-14.5); WHITE BLOOD COUNT 12.87 K/uL (4.8-10.8)
[2017-12-13 16:53] LABS: ALBUMIN 3.7 gm/dl (3.4-5.0); ALT/SGPT 83 U/L (12-78); AST/SGOT 42 U/L (15-37); BLOOD UREA NITROGEN 17 mg/dl (7-18); CALCIUM 9.5 mg/dl (8.5-10.1); CARBON DIOXIDE 24 mmol/L (21-32); CREATININE 1.26 mg/dl (0.60-1.40); GLUCOSE 148 mg/dl (70-99); LIPASE 150 U/L (73-393); POTASSIUM 3.7 mmol/L (3.5-5.1); SODIUM 132 mmol/L (136-145)
[2017-12-13 16:58] LABS: ALKALINE PHOSPHATASE 69 U/L (45-117); TOTAL PROTEIN 7.5 gm/dl (6.4-8.2)
[2017-12-13] MEDS ORDERED: LOSA1TAB PO (17:04)
--- NOTE | 2017-12-13 17:22 | EMERGENCY ROOM VISIT NOTE ---
History Report prepared by Josefa: Sangeeta Gee Under the Supervision of: Dr. Corwin Persaud M.D. First contact with patient: 16:01 Chief Complaint: RESPIRATORY PROBLEMS Stated Complaint: EXTREME SOB SPUDUM Nursing Triage Summary: Patietn with c/o cough productive cough, fatigue with exertion. Seen in October. Follows with Dr Alamo. History of Present Illness The patient is a 67 year old male who presents to the Emergency Room with complaints of worsening SOB over the past several weeks. The patient has a history of COPD and follows with pulmonology. He has been using his inhalers and nebulizer to no significant relief. He has had a productive cough and SOB with exertion. He reports dizziness and chest pain with coughing. He reports congestion. He denies any fever, chills, nausea, vomiting, diarrhea, headache, burning with urination, or abdominal pain. He has not had the flu this year. He quit smoking 17 years ago. The patient was recently switched to spironolactone from Lasix. He reports some leg swelling. Source of History: patient Onset: several weeks Position: other (constitutional) Quality: other (SOB) Timing: worsening Modifying Factors (Worsening): exertion Associated Symptoms: + cough, + chest pain, No fevers, No chills, No headache, No nausea, No vomiting, No abdominal pain, No diarrhea, No urinary symptoms Review of Systems See HPI for pertinent positives and negatives. A total of ten systems were reviewed and were otherwise negative. Past Medical & Surgical Medical Problems: (1) Bronchitis (2) cute respiratory failure with history of possibly COPD (3) Dyspnea on exertion (4) Emphysema, unspecified (5) Hypertension (6) Hyponatremia (7) Hypoxia (8) Influenza A (9) Pneumonia (10) Pneumonia (11) Sinus tachycardia seen on flour broker Surgical Problems: (1) S/P bronchoscopy with bronchoalveolar lavage Family History FH: cancer FH: hypertension Social History Smoking Status: Never Smoker Alcohol Use: none Drug Use: none Marital Status: Housing Status: lives with family Occupation Status: retired Current/Historical Medications Scheduled Budesonide/Formoterol Fumarate (Symbicort 160/4.5 Inhaler), 2 PUFF INH BID Cholecalciferol (Vitamin D3), 1,000 UNITS PO QAM Colestipol Hcl (Colestipol Hcl), 1 GM PO BID Cyanocobalamin (Vitamin B-12), 100 MCG PO QAM Dornase Robin (Pulmozyme), 1 INHA INH BID Doxepin Hcl (Sleep) (Silenor), 3 MG PO HS Home O2 Therapy (Oxygen), 2 LITERS NA HS Homeopathic Products (Sleep Medicine), 1 TAB PO HS Ipratropium-Albuterol (Duoneb), 1 TREATMENT INH TID Levothyroxine Sodium (Synthroid), 88 MCG PO QAM Loperamide Hcl (Loperamide Hcl), 2 MG PO BID Losartan Potassium (Cozaar), 25 MG PO DAILY Mesalamine (Apriso), 4 CAP PO QAM Multivitamin (Multivitamin), 1 TAB PO QAM Prednisone (Prednisone), 20 MG PO QAM Spironolactone (Aldactone), 25 MG PO QAM Tiotropium [place] (Spiriva Handihaler), 1 PUFF INH QAM Torsemide (Torsemide), 20 MG PEG DAILY Vitamin B Cmplx/Vitc/Folic Ac (Nephrocaps), 1 CAP PO QAM Scheduled PRN Albuterol Sulf (Proventil 0.083% 2.5MG/3ML), 2.5 MG INH Q4 PRN for Shortness of Breath Benzonatate (Tessalon Perles), 1 CAP PO TID PRN for Cough Guaifenesin-Codeine (Guaiatussin Ac), 5 ML PO TID PRN for Cough Allergies Coded Allergies: No Known Allergies (Verified , 12/13/17) Physical Exam Vital Signs Date Time Temp Pulse Resp B/P (MAP) Pulse Ox O2 Delivery O2 Flow Rate FiO2 12/13/17 18:40 85 18 91 Room Air 12/13/17 18:37 86 27 137/80 92 Room Air 12/13/17 17:21 89 18 166/79 96 Room Air 12/13/17 16:33 92 18 92 Room Air 12/13/17 16:27 89 12/13/17 15:42 Room Air 12/13/17 15:40 36.8 95 18 120/70 92 Room Air Physical Exam GENERAL: Awake, alert, fatigued-appearing, in no distress HENT: Normocephalic, atraumatic. Dry mucous membranes. EYES: Normal conjunctiva. Sclera non-icteric. NECK: Supple. No nuchal rigidity. FROM. No JVD. RESPIRATORY: Diminished breath sounds at the bases, scattered wheezes. CARDIAC: Regular rate, normal rhythm. Extremities warm and well perfused. Pulses equal. ABDOMEN: Soft, non-distended. No tenderness to palpation. No rebound or guarding. No masses. RECTAL: Deferred. MUSCULOSKELETAL: Chest examination reveals no tenderness. The back is symmetrical on inspection without obvious abnormality. There is no CVA tenderness to palpation. No joint edema. LOWER EXTREMITIES: Calves are equal size bilaterally and non-tender. No edema. No discoloration. NEURO: Normal sensorium. No sensory or motor deficits noted. SKIN: No rash or jaundice noted. Medical Decision & Procedures ER Provider Diagnostic Interpretation: Radiology results as stated below per my review and radiologist interpretation: CHEST ONE VIEW PORTABLE HISTORY: 67 years-old Male CHEST PAIN acute atypical chest pain COMPARISON: Chest radiograph 10/18/2017, CT chest 10/19/2017 TECHNIQUE: Portable AP view of the chest FINDINGS: Cardiomediastinal and hilar silhouettes are within normal limits. Emphysema with areas of chronic interstitial coarsening. Linear subsegmental bibasilar opacities suggest atelectasis. There is no pneumothorax, large pleural effusion, lobar airspace consolidation or overt pulmonary edema. Bones of the chest appear grossly intact. IMPRESSION: Emphysema without acute process. The above report was generated using voice recognition software. It may contain grammatical, syntax or spelling errors. Electronically signed by: Kang Isaac M.D. 12/13/2017 4:32 PM Dictated Date/Time: 12/13/2017 4:31 PM Laboratory Results 12/13/17 16:25 Red Blood Count 4.46, Mean Corpuscular Volume 92.8, Mean Corpuscular Hemoglobin 32.1, Mean Corpuscular Hemoglobin Concent 34.5, Mean Platelet Volume 10.6, Neutrophils (%) (Auto) 89.9, Lymphocytes (%) (Auto) 3.6, Monocytes (%) (Auto) 5.7, Eosinophils (%) (Auto) 0.2, Basophils (%) (Auto) 0.2, Neutrophils # (Auto) 11.58, Lymphocytes # (Auto) 0.46, Monocytes # (Auto) 0.73, Eosinophils # (Auto) 0.03, Basophils # (Auto) 0.02 12/13/17 16:25 Test 12/13/17 16:25 12/13/17 17:37 White Blood Count 12.87 K/uL (4.8-10.8) Red Blood Count 4.46 M/uL (4.7-6.1) Hemoglobin 14.3 g/dL (14.0-18.0) Hematocrit 41.4 % (42-52) Mean Corpuscular Volume 92.8 fL (80-100) Mean Corpuscular Hemoglobin 32.1 pg (25-34) Mean Corpuscular Hemoglobin Concent 34.5 g/dl (32-36) Platelet Count 282 K/uL (130-400) Mean Platelet Volume 10.6 fL (7.4-10.4) Neutrophils (%) (Auto) 89.9 % Lymphocytes (%) (Auto) 3.6 % Monocytes (%) (Auto) 5.7 % Eosinophils (%) (Auto) 0.2 % Basophils (%) (Auto) 0.2 % Neutrophils # (Auto) 11.58 K/uL (1.4-6.5) Lymphocytes # (Auto) 0.46 K/uL (1.2-3.4) Monocytes # (Auto) 0.73 K/uL (0.11-0.59) Eosinophils # (Auto) 0.03 K/uL (0-0.5) Basophils # (Auto) 0.02 K/uL (0-0.2) RDW Standard Deviation 55.0 fL (36.4-46.3) RDW Coefficient of Variation 16.3 % (11.5-14.5) Immature Granulocyte % (Auto) 0.4 % Immature Granulocyte # (Auto) 0.05 K/uL (0.00-0.02) Prothrombin Time 10.6 SECONDS (9.0-12.0) Prothromb Time International Ratio 1.0 (0.9-1.1) Anion Gap 11.0 mmol/L (3-11) Est Creatinine Clear Calc Drug Dose 72.1 ml/min Estimated GFR () 68.0 Estimated GFR (Non- 58.6 BUN/Creatinine Ratio 13.8 (10-20) Calcium Level 9.5 mg/dl (8.5-10.1) Total Bilirubin 1.1 mg/dl (0.2-1) Direct Bilirubin 0.3 mg/dl (0-0.2) Aspartate Amino Transf (AST/SGOT) 42 U/L (15-37) Alanine Aminotransferase (ALT/SGPT) 83 U/L (12-78) Alkaline Phosphatase 69 U/L (45-117) Troponin I < 0.015 ng/ml (0-0.045) Pro-B-Type Natriuretic Peptide 56 pg/ml (0-900) Total Protein 7.5 gm/dl (6.4-8.2) Albumin 3.7 gm/dl (3.4-5.0) Lipase 150 U/L (73-393) Venous Blood pH 7.43 (7.36-7.41) Venous Blood Partial Pressure CO2 46 mmHg (38.0-50.0) Venous Blood Partial Pressure O2 32 mmHg Venous Blood HCO3 30 mmol/L Venous Blood Oxygen Saturation < 60.0 % Venous Blood Base Excess 4.8 mEq/L Laboratory results reviewed by me Medications Administered Medications (Trade) Dose Ordered Sig/Jeffery Route Start Time Stop Time Status Last Admin Dose Admin Sodium Chloride 250 ml @ 999 mls/hr Q16M STAT IV 12/13/17 16:14 12/13/17 16:29 DC 12/13/17 16:41 999 MLS/HR Albuterol/ Ipratropium (Duoneb) 12 ml ONE ONCE INH 12/13/17 16:15 12/13/17 16:18 DC 12/13/17 16:32 12 ML Prednisone (PredniSONE TAB) 60 mg NOW STAT PO 12/13/17 16:14 12/13/17 16:18 DC 12/13/17 16:40 60 MG Sodium Chloride ([place] Nasal [place]ona) 2 sprays NOW ONCE NA 12/13/17 16:15 12/13/17 16:18 DC 12/13/17 16:40 2 SPRAYS Guaifenesin (Mucinex Contr Rel Tab) 600 mg NOW STAT PO 12/13/17 16:14 12/13/17 16:18 DC 12/13/17 17:20 600 MG Azithromycin (Zithromax Tab) 500 mg NOW STAT PO 12/13/17 18:22 12/13/17 18:23 DC 12/13/17 18:37 500 MG Albuterol/ Ipratropium (Duoneb) 12 ml ONE ONCE INH 12/13/17 18:30 12/13/17 18:31 DC 12/13/17 18:40 12 ML ECG Per My Interpretation Indication: SOB/dyspnea Rate (beats per minute): 88 Rhythm: normal sinus Findings: no acute ischemic change, other (normal axis) ED Course 1609: The patient was evaluated in room A12B. A complete history and physical exam was performed. Medical Decision I reviewed the patient's past medical history, medications, and the nursing notes as described above. Differential diagnosis: Etiologies such as infections, reactive airway disease, pneumonia, pneumothorax , COPD, CHF, cardiac ischemia, pulmonary embolism, musculoskeletal, gastrointestinal, as well as others were entertained. The patient is a 67-year-old gentleman with a past medical history of COPD who presents emergency department with worsening cough congestion shortness of breath over the past several days per hpi. On arrival the patient is fatigued appearing but no acute distress, afebrile stable vital signs. On exam the patient has diminished BS at bases with scattered wheezes. WBC 12.8. CXR negative. Labs otherwise c/w mild dehydration. Patient receiving 1hr continuous neb and prednisone on arrival but still dyspneic. Ambulatory pulse ox with desaturation to 86% on RA. Patient is not normally on oxygen. Thus, will given repeat 1hr continuous neb and admit for further management. Azithromycin given patient's sputum production. Case d/w Dr. Ayala, [facility] hospitalist, who will admit the patient for further management. Medication Reconcilliation Current Medication List: was personally reviewed by me Blood Pressure Screening Patient's blood pressure: Elevated blood pressure Blood pressure disposition: Elevated BP felt to be situational Impression Primary Impression: COPD exacerbation Critical Care I have personally spent greater than 35 minutes of critical care time in the direct management of this patient. This includes bedside care, interpretation of diagnostic studies, and testing, discussion with consultants, patient, and family members, and other required patient management activities. This 35 minutes is in excess of all separately billable procedures. Scribe Attestation The scribe's documentation has been prepared under my direction and personally reviewed by me in its entirety. I confirm that the note above accurately reflects all work, treatment, procedures, and medical decision making performed by me. Departure Information Referrals Jocelyne Cook M.D. (PCP) Patient Instructions My [facility]
[2017-12-13] MEDS ORDERED: AZITHROMYCIN 250 MG TAB PO STA (18:22)
[2017-12-13 18:40] VITALS: PULSE 85; O2SAT 91
[2017-12-13] MEDS ORDERED: ONDANSETRON INJ 2 MG/ML 2 ML VIAL IV PRN (18:45)
[2017-12-13] MEDS ORDERED: POLYETHYLENE (MIRALAX) 17 GM PACK PO PRN (18:45)
[2017-12-13] MEDS ORDERED: ACETAMINOPHEN 325 MG TAB PO PRN (18:45)
--- NOTE | 2017-12-13 18:59 | History and Physical ---
History & Physical Date & Time of Service: Dec 13, 2017 at 18:43 Chief Complaint: Extreme Sob Spudum Primary Care Physician: Jocelyne Cook M.D. History of Present Illness Source: patient This is a 67 yo M with PMHx of severe COPD, tracheitis, mucus plugging, candidiasis, Crohn's disease, obstructive sleep apnea, chronic supplemental O2 of 2 L via NC HS, who presents with worsening onset of shortness of breath and sputum production since last Sunday. The patient has been taking all his regularly scheduled meds, inhalers and steroids. He denies any blood in sputum production. He has noticed any decreased tolerance with minimal exertion over the past week. He has been using Hycodan cough syrup at night which seems to alleviate the cough and he is able to sleep better, however when he wakes up there is a significant amount of sputum production. He notes he has been having these coughing fits upwards of 7-10 times per day and occasionally feels lightheaded and almost blacks out afterwards. He denies any recent falls or trauma to the head. Patient denies any fevers, sweats or chills. He has not used his oxygen during the day, although thinks that may have helped in retrospect. This is the 7th time in the past year that the patient has been admitted to the hospital. He follows with Dr. Alamo and Reinaldo Martinez as an outpatient. He was most recently seen by Reinaldo Martinez in the beginning of November and was doing fairly well at that point in time. In the past month the patient had been decreased from 40 mg of prednisone to 20. Past Medical/Surgical History Medical Problems: (1) Bronchitis (2) Acute respiratory failure with history of COPD (3) Dyspnea on exertion (4) Emphysema, unspecified (5) Hypertension (6) Hyponatremia (7) Hypoxia (8) Influenza A (9) Pneumonia Surgical Problems: (1) S/P bronchoscopy with bronchoalveolar lavage Family History FH: cancer FH: hypertension Social History Smoking Status: Former Smoker Smokeless Tobacco Use: No Drug Use: none Marital Status: Housing status: lives with family Occupational Status: retired Allergies Coded Allergies: No Known Allergies (Verified , 12/13/17) Home Medications Scheduled Budesonide/Formoterol Fumarate (Symbicort 160/4.5 Inhaler), 2 PUFF INH BID Cholecalciferol (Vitamin D3), 1,000 UNITS PO QAM Colestipol Hcl (Colestipol Hcl), 1 GM PO BID Cyanocobalamin (Vitamin B-12), 100 MCG PO QAM Dornase Robin (Pulmozyme), 1 INHA INH BID Doxepin Hcl (Sleep) (Silenor), 3 MG PO HS Home O2 Therapy (Oxygen), 2 LITERS NA HS Homeopathic Products (Sleep Medicine), 1 TAB PO HS Ipratropium-Albuterol (Duoneb), 1 TREATMENT INH TID Levothyroxine Sodium (Synthroid), 88 MCG PO QAM Loperamide Hcl (Loperamide Hcl), 2 MG PO BID Losartan Potassium (Cozaar), 25 MG PO DAILY Mesalamine (Apriso), 4 CAP PO QAM Multivitamin (Multivitamin), 1 TAB PO QAM Prednisone (Prednisone), 20 MG PO QAM Spironolactone (Aldactone), 25 MG PO QAM Tiotropium [place] (Spiriva Handihaler), 1 PUFF INH QAM Torsemide (Torsemide), 20 MG PEG DAILY Vitamin B Cmplx/Vitc/Folic Ac (Nephrocaps), 1 CAP PO QAM Scheduled PRN Albuterol Sulf (Proventil 0.083% 2.5MG/3ML), 2.5 MG INH Q4 PRN for Shortness of Breath Benzonatate (Tessalon Perles), 1 CAP PO TID PRN for Cough Guaifenesin-Codeine (Guaiatussin Ac), 5 ML PO TID PRN for Cough Review of Systems Constitutional: No fever, sweats or chills Eyes: No diplopia, no worsening or blurred vision ENT: normal hearing, no trouble swallowing Respiratory: See HPI Cardiovascular: No chest pain, tightness or palpitations Abdomen: No pain, nausea, vomiting, diarrhea or constipation - Crohns is well controlled Musculoskeletal: No joint pain, calf pain, swelling Neurologic: No weakness, numbness/tingling, or balance problems Psychiatric: No anxiety or depression Skin: No rash or itch Physical Exam Vital Signs Date Time Temp Pulse Resp B/P (MAP) Pulse Ox O2 Delivery O2 Flow Rate FiO2 12/13/17 18:40 85 18 91 Room Air 12/13/17 18:37 86 27 137/80 92 Room Air 12/13/17 17:21 89 18 166/79 96 Room Air 12/13/17 16:33 92 18 92 Room Air 12/13/17 16:27 89 12/13/17 15:42 Room Air 12/13/17 15:40 36.8 95 18 120/70 92 Room Air General: awake, alert, no apparent distress Head: Normocephalic, atraumatic ENT: PERRL, EOMI, no pharyngeal exudate, mucous membranes moist Chest: Diminished breath sounds throughout, currently on nebulizer treatment, + faint inspiratory and expiratory wheeze RLL. Cardiac: Regular rate and rhythm, no murmur, no JVD, normal peripheral pulses, good capillary refill Abdominal: NABS x 4 quadrants, soft, nontender to palpation, no rebound, guarding or tenderness Extremities: Normal inspection, 1+ peripheral edema BLE, no erythema, calfs nontender to palpation Psych: Normal mood and affect Neuro: AAO x 3, strength intact bilaterally and related 5/5, no motor deficits, speech is clear, no peripheral sensory deficits Diagnostics Laboratory Results Results Past 24 Hours Test 12/13/17 16:25 12/13/17 17:37 Range/Units White Blood Count 12.87 4.8-10.8 K/uL Red Blood Count 4.46 4.7-6.1 M/uL Hemoglobin 14.3 14.0-18.0 g/dL Hematocrit 41.4 42-52 % Mean Corpuscular Volume 92.8 80-100 fL Mean Corpuscular Hemoglobin 32.1 25-34 pg Mean Corpuscular Hemoglobin Concent 34.5 32-36 g/dl Platelet Count 282 130-400 K/uL Mean Platelet Volume 10.6 7.4-10.4 fL Neutrophils (%) (Auto) 89.9 % Lymphocytes (%) (Auto) 3.6 % Monocytes (%) (Auto) 5.7 % Eosinophils (%) (Auto) 0.2 % Basophils (%) (Auto) 0.2 % Neutrophils # (Auto) 11.58 1.4-6.5 K/uL Lymphocytes # (Auto) 0.46 1.2-3.4 K/uL Monocytes # (Auto) 0.73 0.11-0.59 K/uL Eosinophils # (Auto) 0.03 0-0.5 K/uL Basophils # (Auto) 0.02 0-0.2 K/uL RDW Standard Deviation 55.0 36.4-46.3 fL RDW Coefficient of Variation 16.3 11.5-14.5 % Immature Granulocyte % (Auto) 0.4 % Immature Granulocyte # (Auto) 0.05 0.00-0.02 K/uL Prothrombin Time 10.6 9.0-12.0 SECONDS Prothromb Time International Ratio 1.0 0.9-1.1 Sodium Level 132 136-145 mmol/L Potassium Level 3.7 3.5-5.1 mmol/L Chloride Level 97 98-107 mmol/L Carbon Dioxide Level 24 21-32 mmol/L Anion Gap 11.0 3-11 mmol/L Blood Urea Nitrogen 17 7-18 mg/dl Creatinine 1.26 0.60-1.40 mg/dl Est Creatinine Clear Calc Drug Dose 72.1 ml/min Estimated GFR () 68.0 Estimated GFR (Non- 58.6 BUN/Creatinine Ratio 13.8 10-20 Random Glucose 148 70-99 mg/dl Calcium Level 9.5 8.5-10.1 mg/dl Total Bilirubin 1.1 0.2-1 mg/dl Direct Bilirubin 0.3 0-0.2 mg/dl Aspartate Amino Transf (AST/SGOT) 42 15-37 U/L Alanine Aminotransferase (ALT/SGPT) 83 12-78 U/L Alkaline Phosphatase 69 45-117 U/L Troponin I < 0.015 0-0.045 ng/ml Pro-B-Type Natriuretic Peptide 56 0-900 pg/ml Total Protein 7.5 6.4-8.2 gm/dl Albumin 3.7 3.4-5.0 gm/dl Lipase 150 73-393 U/L Venous Blood pH 7.43 7.36-7.41 Venous Blood Partial Pressure CO2 46 38.0-50.0 mmHg Venous Blood Partial Pressure O2 32 mmHg Venous Blood HCO3 30 mmol/L Venous Blood Oxygen Saturation < 60.0 % Venous Blood Base Excess 4.8 mEq/L Diagnostic Radiology DIAGNOSTIC IMAGING [~ rep ct add3]] CHEST ONE VIEW PORTABLE HISTORY: 67 years-old Male CHEST PAIN acute atypical chest pain COMPARISON: Chest radiograph 10/18/2017, CT chest 10/19/2017 TECHNIQUE: Portable AP view of the chest FINDINGS: Cardiomediastinal and hilar silhouettes are within normal limits. Emphysema with areas of chronic interstitial coarsening. Linear subsegmental bibasilar opacities suggest atelectasis. There is no pneumothorax, large pleural effusion, lobar airspace consolidation or overt pulmonary edema. Bones of the chest appear grossly intact. IMPRESSION: Emphysema without acute process. The above report was generated using voice recognition software. It may contain grammatical, syntax or spelling errors. Electronically signed by: Kang Isaac M.D. 12/13/2017 4:32 PM Dictated Date/Time: 12/13/2017 4:31 PM The status of this report is Signed. EKG Poor data quality, interpretation may be adversely affected Normal sinus rhythm Normal ECG When compared with ECG of 21-OCT-2017 06:49, No significant change was found Vent. rate 88 BPM [place] interval 136 ms QRS duration 82 ms QT/QTc 352/425 ms P-R-T axes 71 72 70 Impression Assessment and Plan This is a 67 yo M with PMHx of severe COPD, tracheitis, mucus plugging, candidiasis, Crohn's disease, obstructive sleep apnea, chronic supplemental O2 of 2 L via NC HS, who presents with worsening onset of shortness of breath and sputum production since last Sunday. COPD exacerbation Acute hypoxic respiratory failure ADELAIDA -Admit to med/surg - Supportive care with duoneb tx, mucinex, tessalon pearls, O2 as needed, wears 2 L HS via NC, and vibration vest - Sputum culture - Pulmonology consulted -follows with Reianldo Martinez and Dr. Alamo as an outpatient. - Cont home inhalers of Pulmozyme, spiriva, advair, proair - Azithromycin IV given in the ER, can switch to PO and continue for 5 day course pending sputum results - Prednisone 60 mg administered in Er, continue 60 mg BID and taper down. Pt has been chronically on 20 mg daily per pulm. - PT/OT evals Crohns disease - Continue mesalamine, loperimide, , colestipol HTN - Cont amlodipine 5 mg daily, torsemide 20 mg daily Insomnia - Continue doxepin DVT ppx: Teds, scds, ambulatory CODE STATUS: FULL CODE Disposition: From home, lives with , PT/OT evals. Resuscitation Status VTE Prophylaxis Will order VTE Prophylaxis: Yes Reviewed: Pt Seen/Exam by Me History Pt is feeling better s/p nebs. Had some chest pain with prolonged coughing, but not outside of this. Tolerating PO without issue. Agree with HPI/ROS as noted by PA. General Appearance: WD/WN, no apparent distress Eye Exam: bilateral eye normal inspection, bilateral eye other (nml sclera) Respiratory: no respiratory distress, other (resolved, however finishing neb on my exam) Cardiovascular: normal peripheral pulses, regular rate, rhythm Gastrointestinal: non tender, soft Extremities: non-tender, no pedal edema Neurologic/Psychiatric: alert, normal mood/affect, oriented x 3 Skin Characteristics: normal color, warm/dry Assessment/Plan Agree with plan as outlined above COPD exacerbation with hx of same Follows with Dr. Jasmeet Wright, steroids CXR neg for PNA, hold on abx for now Mildly elevated WBC in the setting of chronic prednisone use
[2017-12-13] MEDS ORDERED: DMD20 PEG (19:19)
[2017-12-13] MEDS ORDERED: ALBUTEROL 0.083% NEBU SOLN 3 ML VIAL INH PRN (19:30)
[2017-12-13 20:15] VITALS: BP 132/75; PULSE 101; TEMP 36.4; O2SAT 91
[2017-12-13 20:35] VITALS: BP 132/75; PULSE 101; TEMP 36.4; O2SAT 91; Ht 185.4 cm; Wt 104.3 kg
[2017-12-13] MEDS ORDERED: LEVALBUTEROL 1.25MG/3ML NEB INH SCH (21:00)
[2017-12-13] MEDS: BUDESONIDE/FORMOTEROL FUMARATE 160/4.5 60 PUFFS/INHALER INH SCH (21:46)
[2017-12-13] MEDS: BENZONATATE 100MG CAP PO PRN (21:46)
[2017-12-13] MEDS: GUAIFENESIN 600 MG TABCR PO SCH (21:46)
[2017-12-13] MEDS: COLESTIPOL HCL 1 GM TAB PO SCH (21:46)
[2017-12-13] MEDS: LOPERAMIDE HCL 2 MG CAP PO SCH (21:47)
[2017-12-13 22:26] VITALS: PULSE 110; O2SAT 95
[2017-12-13] MEDS: IPRATROPIUM BROMIDE NEB SOLN 0.02% 2.5 ML VIAL INH SCH (22:26)
[2017-12-13] MEDS: LEVALBUTEROL 1.25MG/0.5ML NEB INH SCH (22:26)
[2017-12-13 23:07] VITALS: BP 128/68; PULSE 101; TEMP 36.5; O2SAT 94
[2017-12-14] VITALS (9 sets, daily range): BP systolic 109–144; BP diastolic 57–72; PULSE 83–104; TEMP 36.4–36.8; O2SAT 92–97
[2017-12-14] MEDS ORDERED: APRISO~ORDER AWAITING ACTION SCH
[2017-12-14] MEDS: DOXEPIN HCL 6 MG PO SCH ×2 (00:17→21:55)
[2017-12-14] MEDS: GUAIFENESIN/CODEINE 200MG/20MG 10ML UDC PO PRN ×2 (00:17→21:02)
[2017-12-14] MEDS: IPRATROPIUM BROMIDE NEB SOLN 0.02% 2.5 ML VIAL INH SCH ×4 (03:00→20:29)
[2017-12-14] MEDS: LEVALBUTEROL 1.25MG/0.5ML NEB INH SCH ×4 (03:00→20:29)
[2017-12-14] MEDS: LEVOTHYROXINE 88 MCG TAB PO SCH (05:54)
[2017-12-14] MEDS: IPRATROPIUM BROMIDE NEB SOLN 0.02% 2.5 ML VIAL INH PRN (06:11)
[2017-12-14] MEDS: LEVALBUTEROL 1.25MG/0.5ML NEB INH PRN (06:12)
[2017-12-14] MEDS: DORNASE ALFA 2.5 ML AMP INH SCH ×2 (07:48→20:00)
[2017-12-14 08:16] LABS: BASO % 0.1 %; BASO ABS # 0.01 K/uL (0-0.2); HEMATOCRIT 40.8 % (42-52); HEMOGLOBIN 13.9 g/dL (14.0-18.0); IG# 0.05 K/uL (0.00-0.02); LYMPH % 2.6 %; LYMPH ABS # 0.44 K/uL (1.2-3.4); MEAN CELL VOLUME 92.7 fL (80-100); MEAN CORPUSCULAR HEMOGLOBIN 31.6 pg (25-34); MEAN CORPUSCULAR HGB CONC 34.1 g/dl (32-36); MEAN PLATELET VOLUME 10.9 fL (7.4-10.4); MONO ABS # 0.68 K/uL (0.11-0.59); PLATELET COUNT 294 K/uL (130-400); RED CELL DISTRIBUTION WIDTH CV 16.7 % (11.5-14.5); RED CELL DISTRIBUTION WIDTH SD 56.4 fL (36.4-46.3); WHITE BLOOD COUNT 16.98 K/uL (4.8-10.8)
[2017-12-14] MEDS: TIOTROPIUM BROMIDE 5 PUFF/90 MCG INH INH SCH (08:48)
[2017-12-14] MEDS: BUDESONIDE/FORMOTEROL FUMARATE 160/4.5 60 PUFFS/INHALER INH SCH ×2 (08:48→20:58)
[2017-12-14] MEDS: GUAIFENESIN 600 MG TABCR PO SCH ×2 (08:49→19:58)
[2017-12-14 08:50] LABS: CALCIUM 9.3 mg/dl (8.5-10.1); CREATININE 1.4 mg/dl (0.60-1.40); POTASSIUM 3.7 mmol/L (3.5-5.1)
[2017-12-14] MEDS: SPIRONOLACTONE 25 MG TAB PO SCH (08:51)
[2017-12-14] MEDS: MESALAMINE 0.375 GM PO SCH (08:51)
[2017-12-14] MEDS: NEPHROCAPS PO SCH (08:52)
[2017-12-14] MEDS: CYANOCOBALAMIN 100 MCG TAB (VIT B-12) PO SCH (08:53)
[2017-12-14] MEDS: CHOLECALCIFEROL 1000 INTER.UNIT TAB PO SCH (08:53)
[2017-12-14] MEDS: AZITHROMYCIN 250 MG TAB PO SCH (08:53)
[2017-12-14] MEDS: MULTIVITAMIN TAB PO SCH (08:54)
[2017-12-14] MEDS: LOPERAMIDE HCL 2 MG CAP PO SCH ×2 (08:54→20:00)
[2017-12-14] MEDS: LOSARTAN POTASSIUM 25 MG TAB PO SCH (08:54)
[2017-12-14] MEDS: COLESTIPOL HCL 1 GM TAB PO SCH ×2 (08:54→20:58)
[2017-12-14] MEDS ORDERED: TORSEMIDE 20 MG TAB PEG SCH (09:00)
[2017-12-14] MEDS ORDERED: COUGH DROP (SUGAR FREE) LOZ 24 LOZ/1 BOX LOZ ONE (10:47)
[2017-12-14] MEDS ORDERED: NURSING VERBAL MED ORDER ONE (15:45)
--- NOTE | 2017-12-14 18:11 | Pulmonary Consultation ---
History General Date of Service: Dec 14, 2017. Stated Complaint: Copd Exacerbation,Hyponatremia HPI The patient is a 67 year old male who presents to [facility] with complaints of Copd Exacerbation,Hyponatremia. The patient's primary care provider is Jocelyne Cook M.D.. 67-year-old patient with a longstanding history of chronic cough/bronchitis and recurrent pneumonias. Patient has had extensive workup in the past please see below. He has been experiencing a increasing cough with productive sputum and shortness of Breath over the last week. He does note that his Hycodan helps relieve the cough but continues to note that a supine position increases cough in his mucus production. These episodes seem to be more severe than his previous 1 as he is experiencing near syncopal type events. He currently denies : Fever, chills, productive cough, night sweats, unintentional weight loss, B type symptoms, hemoptysis, pleurisy or classic cardiac chest pain. Past medical history: Moderate obstructive pulmonary disease, tracheitis, candidiasis, Crohn's disease, obstructive sleep apnea on supplemental oxygen via 2 L nasal cannula at bedtime, chronic steroid use 20 MGs prednisone per day Current workup WBC: [id number] VB.43/46 corrected to 7.47/38 Na 131 Tbili: >1.1 D Bili: >0.3 AST: >42 ALT: >83 EKG: Normal sinus rhythm rate 88 Chest x-ray: No acute process noted Current treatment 1. Azithromycin 250 mg daily 2. Losartan 25 mg p.o. daily 3. Spiriva 1 puff daily 4. Dornase twice daily 5. Guaifenesin 120 mg q. 12 6. Symbicort 160/4.52 puffs twice daily 7. Xopenex/Atrovent nebulizers every 6 hours and every 2 hours as needed 8. Tessalon Perles 100 mg 3 times daily 9. Robitussin-AC 5 mL 3 times daily as needed 10. Prednisone 60 mg q.day Previous workup 1. Expectorated sputum 06/03/2016: Moderate normal jennifer 2. Expectorated sputum 01/29/2017: Normal jennifer 3. Expectorated sputum 02/12/2017: Normal jennifer 4. Expectorated sputum 02/13/2017: No acid-fast bacilli 1. 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 BAL 05/22/2017: Saprophytic fungus 3. BAL 07/09/2017: Moraxella catarrhalis 4. BAL 08/13/2017: No significant growth 5. BAL 10/22/2017: Mary albicans, Haemophilus influenza beta lactamase negative 1. Rigid bronchoscopy 08/13/2017: Tracheal bx/BAL RLL a. Tracheal Bx: i. Numerous eosinophils, Abundant mucus plugs, Negative for dysplasia malignancy b. BAL RLL: i. No malignant cells noted, signs of severe/acute inflammation 2. Bronchial washing 07/09/2017: a. Severe acute inflammation noted, no tumor cells 3. Bronchial washing 03/22/2017 a. No malignant cells seen b. Pulmonary macrophages, Respiratory epithelials/squamous cells 4. Bronchial washing 10/22/2017 a. Necrotizing vegetable matter consistent with corn kernel EGD with Song device placement performed 11/26/2017: Normal EGD, DeMeester score 9 point Modified barium swallow 03/05/2017: No aspiration, intact swallow mechanism Right heart catheterization 03/05/2017: Within normal limits [id number] Pulmonary function study 04/23/2017: Moderate obstructive pulmonary disease with an FEV1 of 63%, signs of hyperinflation with an elevated RV/TLC of 44 and severely reduced DLCO of 38%. Echocardiogram 10/19/2017: EF=55-60%, rest exam was within normal limits as well [id number] 07/09/17: Within normal limits Historian: patient, family, EMS Review of Systems Constitutional: reports: as stated in HPI Eyes: reports: no symptoms ENT: reports: no symptoms Cardiovascular: reports: no symptoms Respiratory: reports: as stated in HPI Gastrointestinal: reports: no symptoms Genitourinary - Male: reports: no symptoms Musculoskeletal: reports: no symptoms Integumentary: reports: no symptoms Neurologic: reports: no symptoms Psychiatric: reports: depression Endocrine: no symptoms Hematologic / Lymphatic: no symptoms Allergic / Immunologic: no symptoms Past Medical History Past Medical History: Please refer to HPI Past Surgical History: Please refer to HPI Family History FH: cancer FH: hypertension Please refer to HPI Social History Please refer to HPI Hx Tobacco Use In Past Year?: No Smoking Status: Former Smoker Marital status: Housing status: lives with family Occupational Status: retired History of MDRO History of MDRO: No Allergies Coded Allergies: No Known Allergies (Verified , 12/13/17) Current Medications Reported Home Medications Medications Dose Route/Sig Max Daily Dose Days Date Category Torsemide 20 Mg Tab 20 Mg PEG DAILY 12/13/17 Reported Cozaar (Losartan Potassium) 25 Mg Tab 25 Mg PO DAILY 12/13/17 Reported Loperamide Hcl 2 Mg Tab 2 Mg PO BID 11/15/17 Reported Prednisone 20 Mg Tab 20 Mg PO QAM 11/15/17 Reported Silenor (Doxepin Hcl (Sleep)) 3 Mg Tab 3 Mg PO HS 10/19/17 Reported Aldactone (Spironolactone) 25 Mg Tab 25 Mg PO QAM 10/19/17 Reported Vitamin D3 (Cholecalciferol) 1,000 Unit Tab 1,000 Units PO QAM 90 08/10/17 Reported Nephrocaps (Vitamin B Complex/Vit C/Folic Acid) Cap 1 Cap PO QAM 08/10/17 Reported Guaiatussin Ac (Guaifenesin-Codeine) 1 Syp Syp 5 Ml PO TID PRN 08/10/17 Reported Sleep Medicine (Homeopathic Products) 1 Tab Tab 1 Tab PO HS 08/10/17 Reported Apriso (Mesalamine) 0.375 Gm Cap 4 Cap PO QAM 07/09/17 Reported Pulmozyme (Dornase Roibn) 1 Mg/Ml Luz Maria 1 Inha INH BID 07/09/17 Reported Tessalon Perles (Benzonatate) 100 Mg Cap 1 Cap PO TID PRN 10 07/09/17 Reported Oxygen Gas 2 Liters NA HS 05/22/17 Reported Symbicort 160/4.5 Inhaler (Budesonide/Formoterol Fumarate) 120 Puffs/ Aero 2 Puff INH BID 02/10/17 Reported Duoneb (Ipratropium-Albuterol) 3 Ml Nebu 1 Treatment INH TID 02/10/17 Reported Proventil 0.083% 2.5MG/3ML (Albuterol Sulf) 2.5 Mg/3 Ml Nebu 2.5 Mg INH Q4 PRN 02/10/17 Reported Spiriva Handihaler (Tiotropium Kerby) 5 Puff/90 Mcg Aerp 1 Puff INH QAM 12/12/16 Reported Colestipol Hcl 1 Gm Tab 1 Gm PO BID 12/12/16 Reported Synthroid (Levothyroxine Sodium) 88 Mcg Tab 88 Mcg PO QAM 05/31/16 Reported Multivitamin (Multivitamins) Tab 1 Tab PO QAM 05/31/16 Reported Vitamin B-12 (Cyanocobalamin) 100 Mcg Tab 100 Mcg PO QAM 05/31/16 Reported Physical Physical Exam Vital Signs: Date Time Temp Pulse Resp B/P (MAP) Pulse Ox O2 Delivery O2 Flow Rate FiO2 12/14/17 16:10 36.6 83 20 124/69 (87) 93 Nasal Cannula 2.0 12/14/17 15:45 93 Nasal Cannula 2.0 12/14/17 14:14 86 8 96 Nasal Cannula 2.0 12/14/17 09:21 94 Nasal Cannula 12/14/17 07:53 36.4 91 14 144/72 (96) 92 Nasal Cannula 12/14/17 07:53 95 Nasal Cannula 2.0 12/14/17 07:51 90 22 95 Nasal Cannula 2.0 12/14/17 06:12 88 22 95 Nasal Cannula 2.0 12/14/17 00:15 Nasal Cannula 2.0 12/13/17 23:07 36.5 101 18 128/68 (88) 94 Nasal Cannula 2.0 12/13/17 22:26 110 28 95 Nasal Cannula 2.0 12/13/17 20:35 36.4 101 20 132/75 91 Room Air 12/13/17 20:15 36.4 101 20 132/75 (94) 91 Room Air 12/13/17 20:05 18 94 Room Air 12/13/17 19:32 82 18 142/70 96 Nebulizer 12/13/17 18:40 85 18 91 Room Air 12/13/17 18:37 86 27 137/80 92 Room Air General Appearance: NO APPARENT DISTRESS Head: NORMOCEPHALIC, ATRAUMATIC Eyes: PERRLA, NO DISCHARGE, EOMI, SCLERAE NORMAL ENT: NORMAL EAR EXAM, NORMAL NASAL EXAM, NORMAL MOUTH EXAM, NORMAL THROAT EXAM Neck: NORMAL RANGE OF MOTION, NO TENDERNESS, TRACHEA MIDLINE, NO STRIDOR Respiratory: rhonchi Cardiovasular: REGULAR RATE/RHYTHM, NORMAL S1S2, NO M/G/R, NO MURMUR, NO GALLOP Abdomen: NON TENDER, NORMAL BOWEL SOUNDS, NO REBOUND, NO MASSES, NO GUARDING Genitourinary - Male: EXTERNAL GENITALIA NORMAL Back: NORMAL INSPECTION, NO MIDLINE TENDERNESS, NO CVA TENDERNESS, NO PARAVERTEBRAL TTP Upper Extremities: NO EDEMA, NO DEFORMITY, NORMAL ROM Lower Extremities: NO EDEMA, NO DEFORMITY, NORMAL ROM Pulses: carotid (R) (2+), carotid (L) (2+), posterior tibial (R), posterior tibial (L) Neuro: ALERT, ORIENTED x 3, NORMAL MOTOR EXAM, NORMAL SENSATION, NORMAL CEREBELLAR EXAM Diagnostics Labs Results Past 24 Hours Test 12/14/17 07:29 Range/Units White Blood Count 16.98 4.8-10.8 K/uL Red Blood Count 4.40 4.7-6.1 M/uL Hemoglobin 13.9 14.0-18.0 g/dL Hematocrit 40.8 42-52 % Mean Corpuscular Volume 92.7 80-100 fL Mean Corpuscular Hemoglobin 31.6 25-34 pg Mean Corpuscular Hemoglobin Concent 34.1 32-36 g/dl Platelet Count 294 130-400 K/uL Mean Platelet Volume 10.9 7.4-10.4 fL Neutrophils (%) (Auto) 93.0 % Lymphocytes (%) (Auto) 2.6 % Monocytes (%) (Auto) 4.0 % Eosinophils (%) (Auto) 0.0 % Basophils (%) (Auto) 0.1 % Neutrophils # (Auto) 15.80 1.4-6.5 K/uL Lymphocytes # (Auto) 0.44 1.2-3.4 K/uL Monocytes # (Auto) 0.68 0.11-0.59 K/uL Eosinophils # (Auto) 0.00 0-0.5 K/uL Basophils # (Auto) 0.01 0-0.2 K/uL RDW Standard Deviation 56.4 36.4-46.3 fL RDW Coefficient of Variation 16.7 11.5-14.5 % Immature Granulocyte % (Auto) 0.3 % Immature Granulocyte # (Auto) 0.05 0.00-0.02 K/uL Sodium Level 131 136-145 mmol/L Potassium Level 3.7 3.5-5.1 mmol/L Chloride Level 96 98-107 mmol/L Carbon Dioxide Level 23 21-32 mmol/L Anion Gap 12.0 3-11 mmol/L Blood Urea Nitrogen 20 7-18 mg/dl Creatinine 1.40 0.60-1.40 mg/dl Est Creatinine Clear Calc Drug Dose 21.9 ml/min Estimated GFR () 59.8 Estimated GFR (Non- 51.6 BUN/Creatinine Ratio 14.1 10-20 Random Glucose 144 70-99 mg/dl Calcium Level 9.3 8.5-10.1 mg/dl Microbiology Results 12/13/17 Blood Culture, Received Pending 12/14/17 Gram Stain - Final, Resulted 12/14/17 Sputum Culture, Resulted Pending Diagnostic Radiology CXR suggests emphysema but no acute process is noted EKG Interpretation: NORMAL EKG Impression Assessment and Plan 67-year-old gentleman with the current cough near syncopal episodes: 1. Chronic Cough: The patient has had extensive workup for his chronic cough and shortness of Breath with multiple bronchoscopies, tracheal biopsies, microbiologic analysis, right heart catheterization, EGD with Song placement, modified barium swallow, pulmonary function studies and echocardiogram. At this time there is still no definitive answer to the etiology of the patient's cough. Clinically in historically it does fit with chronic aspiration as the patient's last bronchoscopy did note a corn kernel but his Song studies DeMeester score was only 9.9. I should note that a Song study is noted to only be 60 % sensitive in a patient with normal endoscopy but is notably 85-90% specific. At this time I would like to continue his current course of action and perform a high-resolution CT scan on Sunday for further evaluation.
[2017-12-14] MEDS: BENZONATATE 100MG CAP PO PRN (20:57)
[2017-12-15] VITALS (9 sets, daily range): BP systolic 101–125; BP diastolic 57–69; PULSE 85–102; TEMP 36.4–36.6; O2SAT 89–95
--- NOTE | 2017-12-15 00:33 | Progress Note ---
Subjective Date of Service: Dec 14, 2017. Subjective Pt evaluation today including: conversation w/ patient, physical exam, chart review, lab review, review of studies Pain: none reported PO Intake: normal Voiding: no voiding problems feels better less cough, less dyspnea he outlines many of the tests he has had since the fall for his chronic cough & dyspnea Problem List Medical Problems: (1) Acute bronchitis Status: Acute (2) COPD exacerbation Status: Acute (3) COPD exacerbation Status: Acute (4) COPD exacerbation Status: Acute (5) Failure of outpatient treatment Status: Acute (6) Lactic acidosis Status: Acute (7) Lower extremity edema Status: Acute (8) Mucus plugging of bronchi Status: Acute (9) Sepsis Status: Acute (10) SOB (shortness of breath) Status: Acute (11) SOB (shortness of breath) Status: Acute Review of Systems Constitutional: No fever, No chills Respiratory: + sputum (but improved), No dyspnea at rest, No hemoptysis Cardiac: No chest pain Abdomen: No pain Objective Vital Signs Date Time Temp Pulse Resp B/P (MAP) Pulse Ox O2 Delivery O2 Flow Rate FiO2 12/14/17 20:30 88 18 97 Nasal Cannula 2.0 12/14/17 19:35 Nasal Cannula 12/14/17 16:10 36.6 83 20 124/69 (87) 93 Nasal Cannula 2.0 12/14/17 15:45 93 Nasal Cannula 2.0 12/14/17 14:14 86 8 96 Nasal Cannula 2.0 12/14/17 09:21 94 Nasal Cannula 12/14/17 07:53 36.4 91 14 144/72 (96) 92 Nasal Cannula 12/14/17 07:53 95 Nasal Cannula 2.0 12/14/17 07:51 90 22 95 Nasal Cannula 2.0 12/14/17 06:12 88 22 95 Nasal Cannula 2.0 12/14/17 00:15 Nasal Cannula 2.0 12/13/17 23:07 36.5 101 18 128/68 (88) 94 Nasal Cannula 2.0 12/13/17 22:26 110 28 95 Nasal Cannula 2.0 Physical Exam General Appearance: no apparent distress ENT: pharynx normal Neck: no JVD Respiratory/Chest: no respiratory distress, no accessory muscle use, + rhonchi , + wheezing Cardiovascular: regular rate, rhythm, no gallop, no murmur Abdomen: normal bowel sounds, non tender, soft, no organomegaly Extremities: no pedal edema Neurologic/Psychiatric: alert, oriented x 3 Laboratory Results Last 24 Hours Test 12/14/17 07:29 White Blood Count 16.98 K/uL Red Blood Count 4.40 M/uL Hemoglobin 13.9 g/dL Hematocrit 40.8 % Mean Corpuscular Volume 92.7 fL Mean Corpuscular Hemoglobin 31.6 pg Mean Corpuscular Hemoglobin Concent 34.1 g/dl Platelet Count 294 K/uL Mean Platelet Volume 10.9 fL Neutrophils (%) (Auto) 93.0 % Lymphocytes (%) (Auto) 2.6 % Monocytes (%) (Auto) 4.0 % Eosinophils (%) (Auto) 0.0 % Basophils (%) (Auto) 0.1 % Neutrophils # (Auto) 15.80 K/uL Lymphocytes # (Auto) 0.44 K/uL Monocytes # (Auto) 0.68 K/uL Eosinophils # (Auto) 0.00 K/uL Basophils # (Auto) 0.01 K/uL RDW Standard Deviation 56.4 fL RDW Coefficient of Variation 16.7 % Immature Granulocyte % (Auto) 0.3 % Immature Granulocyte # (Auto) 0.05 K/uL Sodium Level 131 mmol/L Potassium Level 3.7 mmol/L Chloride Level 96 mmol/L Carbon Dioxide Level 23 mmol/L Anion Gap 12.0 mmol/L Blood Urea Nitrogen 20 mg/dl Creatinine 1.40 mg/dl Est Creatinine Clear Calc Drug Dose 21.9 ml/min Estimated GFR () 59.8 Estimated GFR (Non- 51.6 BUN/Creatinine Ratio 14.1 Random Glucose 144 mg/dl Calcium Level 9.3 mg/dl Assessment and Plan 67yo male - 1. COPD with exacerbation - on prednisone 60mg BID. On zithromax. Cont nebs/inhalers. Appreciate pulmonary consultation and recommendations. 2. chronic cough - thought to be from COPD but definitive dx has been challenging. Dr. Almao prefers CT chest in am. 3. hypothyroidism - cont synthroid. 4. ADELAIDA - CPAP at hs. 5. hyponatremia - per records this is chronic and Na is at baseline. 6. abnormal LFTs - mild - uncertain etiology; repeat in am. 7. crohn's disease - controlled. 8. HTN - controlled. 9. DVT proph - SCDs for now. Continued [facility] stay due to: multiple IV medications needed Discharge planning: home
[2017-12-15] MEDS: LEVALBUTEROL 1.25MG/0.5ML NEB INH SCH ×4 (01:57→19:47)
[2017-12-15] MEDS: IPRATROPIUM BROMIDE NEB SOLN 0.02% 2.5 ML VIAL INH SCH ×4 (01:57→19:47)
[2017-12-15] MEDS: LEVOTHYROXINE 88 MCG TAB PO SCH (05:20)
[2017-12-15] MEDS: BENZONATATE 100MG CAP PO PRN (05:23)
[2017-12-15 07:01] LABS: ALBUMIN 3.1 gm/dl (3.4-5.0); CALCIUM 8.7 mg/dl (8.5-10.1); CREATININE 1.15 mg/dl (0.60-1.40); POTASSIUM 3.9 mmol/L (3.5-5.1)
[2017-12-15 07:04] LABS: TOTAL PROTEIN 6.5 gm/dl (6.4-8.2)
[2017-12-15] MEDS: DORNASE ALFA 2.5 ML AMP INH SCH ×2 (07:41→19:47)
[2017-12-15] MEDS: BUDESONIDE/FORMOTEROL FUMARATE 160/4.5 60 PUFFS/INHALER INH SCH ×2 (09:26→21:28)
[2017-12-15] MEDS: TIOTROPIUM BROMIDE 5 PUFF/90 MCG INH INH SCH (09:26)
[2017-12-15] MEDS: COLESTIPOL HCL 1 GM TAB PO SCH ×2 (09:27→21:35)
[2017-12-15] MEDS: MESALAMINE 0.375 GM PO SCH (09:27)
[2017-12-15] MEDS: SPIRONOLACTONE 25 MG TAB PO SCH (09:28)
[2017-12-15] MEDS: NEPHROCAPS PO SCH (09:28)
[2017-12-15] MEDS: CYANOCOBALAMIN 100 MCG TAB (VIT B-12) PO SCH (09:28)
[2017-12-15] MEDS: AZITHROMYCIN 250 MG TAB PO SCH (09:28)
[2017-12-15] MEDS: GUAIFENESIN 600 MG TABCR PO SCH ×2 (09:29→21:29)
[2017-12-15] MEDS: MULTIVITAMIN TAB PO SCH (09:29)
[2017-12-15] MEDS: LOPERAMIDE HCL 2 MG CAP PO SCH ×2 (09:29→21:28)
[2017-12-15] MEDS: TORSEMIDE 20 MG TAB PO SCH (09:29)
[2017-12-15] MEDS: LOSARTAN POTASSIUM 25 MG TAB PO SCH (09:30)
[2017-12-15] MEDS: CHOLECALCIFEROL 1000 INTER.UNIT TAB PO SCH (09:30)
--- NOTE | 2017-12-15 12:32 | Pulmonology Progress Note ---
Pulmonary Progress Note Date of Service Dec 15, 2017. Attending Dr. Alamo Subjective Patient notes he is stable but not improved the last 24 hours and continues to have cough with intermittent sputum production Objective Patient notably coughing when I entered the room and tachypneic during our conversation: Vital signs: Stable on 2 L nasal cannula Respiratory: Bilateral rhonchi with expiratory wheezing appreciated Cardiac: S1-S2 regular rate and rhythm Abdomen: Positive bowel sounds soft nontender Extremity: No clubbing cyanosis or edema next Assessment & Plan 67-year-old male with recurrent bronchitis and active flare: 1. Bronchitis: Patient has had a long history of bronchitis with possible multiple etiologies such as underlying Crohn's, recurrent infections or even chronic aspiration. At this time I am moving forward with high-resolution noncontrast CT of the chest for further evaluation. Also like to continue his current medical regimen. Data Medications: Current Inpatient Medications Medications (Trade) Dose Ordered Sig/Jeffery Route Start Time Stop Time Status Last Admin Dose Admin Acetaminophen (Tylenol Tab) 650 mg Q4H PRN PO 12/13/17 18:45 01/12/18 18:44 Polyethylene (Miralax Powder Packet) 17 gm DAILY PRN PO 12/13/17 18:45 01/12/18 18:44 Ondansetron HCl (Zofran Inj) 4 mg Q6H PRN IV 12/13/17 18:45 01/12/18 18:44 Guaifenesin (Mucinex Contr Rel Tab) 1,200 mg Q12 PO 12/13/17 21:00 01/12/18 20:59 12/15/17 09:29 1,200 MG Azithromycin (Zithromax Tab) 250 mg DAILY PO 12/14/17 09:00 12/18/17 08:59 12/15/17 09:28 250 MG Albuterol Sulfate (Ventolin 0.083% 2.5MG/3ML Neb) 2.5 mg Q4 PRN INH 12/13/17 19:30 01/12/18 19:29 Benzonatate (Tessalon Perles Cap) 100 mg TID PRN PO 12/13/17 19:30 01/12/18 19:29 12/15/17 05:23 100 MG Budesonide/ Formoterol Fumarate (Symbicort 160/ 4.5 Inh) 2 puffs BID INH 12/13/17 21:00 01/12/18 20:59 12/15/17 09:26 2 PUFFS Cholecalciferol (Vitamin D Tab) 1,000 inter.unit QAM PO 12/14/17 09:00 01/13/18 08:59 12/15/17 09:30 1,000 INTER.UNIT Colestipol HCl (Colestid Tab) 1 gm BID PO 12/13/17 21:00 01/12/18 20:59 12/15/17 09:27 1 GM Cyanocobalamin (Vitamin B-12 Tab) 100 mcg QAM PO 12/14/17 09:00 01/13/18 08:59 12/15/17 09:28 100 MCG Dornase Robin (Pulmozyme Inhalation Soln 2.5ml Amp) 2.5 ml BIDR INH 12/14/17 08:00 01/13/18 07:59 12/15/17 07:41 2.5 ML Codeine Phosphate/ Guaifenesin (Robitussin-AC Sugar Free Syrup) 5 ml TID PRN PO 12/13/17 19:30 01/12/18 19:29 12/14/17 21:02 5 ML Levothyroxine Sodium (Synthroid Tab) 88 mcg DAILYBB PO 12/14/17 06:00 01/13/18 05:59 12/15/17 05:20 88 MCG Losartan Potassium (coZAAR TAB) 25 mg DAILY PO 12/14/17 09:00 01/13/18 08:59 12/15/17 09:30 25 MG Multivitamins (Multivitamin Tab) 1 tab QAM PO 12/14/17 09:00 01/13/18 08:59 12/15/17 09:29 1 TAB Spironolactone (Aldactone Tab) 25 mg QAM PO 12/14/17 09:00 01/13/18 08:59 12/15/17 09:28 25 MG Tiotropium Chester (Spiriva Handihaler Inhaler) 1 puff QAM INH 12/14/17 09:00 01/13/18 08:59 12/15/17 09:26 1 PUFF Vitamin B Complex/ Vit C/Folic Acid (Nephrocaps) 1 cap QAM PO 12/14/17 09:00 01/13/18 08:59 12/15/17 09:28 1 CAP Loperamide HCl (Imodium Cap) 2 mg BID PO 12/13/17 21:00 01/12/18 20:59 12/15/17 09:29 2 MG Prednisone (PredniSONE TAB) 60 mg BID PO 12/13/17 19:41 01/12/18 19:40 12/15/17 09:30 60 MG Ipratropium Chester (Atrovent 0.02% 0.5MG/2.5ML Neb) 0.5 mg Q6R INH 12/13/17 21:00 01/12/18 20:59 12/15/17 07:41 0.5 MG Levalbuterol (Xopenex 1.25MG/ 0.5ML Neb) 1.25 mg Q6R INH 12/13/17 21:00 01/12/18 20:59 12/15/17 07:41 1.25 MG Ipratropium Chester (Atrovent 0.02% 0.5MG/2.5ML Neb) 0.5 mg Q2H PRN INH 12/13/17 21:00 01/12/18 20:59 12/14/17 06:11 0.5 MG Levalbuterol (Xopenex 1.25MG/ 0.5ML Neb) 1.25 mg Q2H PRN INH 12/13/17 21:00 01/12/18 20:59 12/14/17 06:12 1.25 MG Mesalamine (Apriso) 1.5 gm QAM PO 12/14/17 09:00 01/13/18 08:59 12/15/17 09:27 1.5 GM Doxepin HCl (Silenor) 3 mg HS PO 12/13/17 21:00 01/12/18 20:59 12/14/17 21:55 3 MG Torsemide (Demadex Tab) 20 mg DAILY PO 12/15/17 09:00 01/14/18 08:59 12/15/17 09:29 20 MG Vital Signs: Date Time Temp Pulse Resp B/P (MAP) Pulse Ox O2 Delivery O2 Flow Rate FiO2 12/15/17 07:49 36.6 89 16 118/64 (82) 95 Nasal Cannula 2.0 12/15/17 07:45 95 Nasal Cannula 2.0 12/15/17 07:41 85 18 95 Nasal Cannula 2.0 12/15/17 01:58 99 20 93 Nasal Cannula 2.0 12/15/17 00:45 18 12/14/17 22:45 36.8 104 28 109/57 (74) 93 Room Air 12/14/17 20:30 88 18 97 Nasal Cannula 2.0 12/14/17 19:35 Nasal Cannula 12/14/17 16:10 36.6 83 20 124/69 (87) 93 Nasal Cannula 2.0 12/14/17 15:45 93 Nasal Cannula 2.0 12/14/17 14:14 86 8 96 Nasal Cannula 2.0 Laboratory Results: Last 24 Hours Test 12/15/17 06:28 Sodium Level 133 mmol/L Potassium Level 3.9 mmol/L Chloride Level 98 mmol/L Carbon Dioxide Level 27 mmol/L Anion Gap 8.0 mmol/L Blood Urea Nitrogen 20 mg/dl Creatinine 1.15 mg/dl Est Creatinine Clear Calc Drug Dose 79.0 ml/min Estimated GFR () 75.9 Estimated GFR (Non- 65.5 BUN/Creatinine Ratio 17.0 Random Glucose 167 mg/dl Calcium Level 8.7 mg/dl Total Bilirubin 1.2 mg/dl Direct Bilirubin 0.3 mg/dl Aspartate Amino Transf (AST/SGOT) 19 U/L Alanine Aminotransferase (ALT/SGPT) 62 U/L Alkaline Phosphatase 57 U/L Total Protein 6.5 gm/dl Albumin 3.1 gm/dl
--- NOTE | 2017-12-15 14:32 | DIAGNOSTIC IMAGING REPORT ---
(CHEST) THORAX WITHOUT CT DOSE: 781.75 mGy.cm HISTORY: Dyspnea Possible aspiration TECHNIQUE: Multiaxial CT images of the chest were performed without contrast. A dose lowering technique was utilized adhering to the principles of ALARA. COMPARISON: 10/19/2017 FINDINGS: Progressive infiltrative change at both lung bases compared to the prior study. Focal regions of consolidative change are identified at the right and to a lesser extent left posterior gastric angle. Pre-existing bronchial wall thickening and/or underlying bronchiectasis is stable to slightly progressive. There is subtle progressive changes involving the central aspect right middle lobe. Vague interstitial changes throughout the upper lungs bilaterally are stable. No significant mediastinal or hilar adenopathy. Mild left ischemic change thoracic aorta. Fatty infiltration of liver stable from the prior exam. Contracted gallbladder showing several small gallstones. This is unchanged. IMPRESSION: 1. Interval development of bibasilar parenchymal infiltrative change with consolidative changes involving the posterior costophrenic angle regions. 2. Mildly progressive bibasilar and midlung bronchiectatic change /bronchitis type change 3. Interstitial change in the mid to upper lung regions bilaterally is considered stable. The above report was generated using voice recognition software. It may contain grammatical, syntax or spelling errors. Electronically signed by: Gregorio Lagos M.D. 12/15/2017 2:31 PM Dictated Date/Time: 12/15/2017 2:25 PM
--- NOTE | 2017-12-15 20:52 | Progress Note ---
Subjective Date of Service: Dec 15, 2017. Subjective Pt evaluation today including: conversation w/ patient, conversation w/ family ( at bedside), physical exam, chart review, lab review, conversation w/ ergonomics consultant (pulmonary) Pain: denies PO Intake: normal Voiding: no voiding problems "I'm feeling better" less dyspnea, less cough no major mucous production Problem List Medical Problems: (1) Acute bronchitis Status: Acute (2) COPD exacerbation Status: Acute (3) COPD exacerbation Status: Acute (4) COPD exacerbation Status: Acute (5) Failure of outpatient treatment Status: Acute (6) Lactic acidosis Status: Acute (7) Lower extremity edema Status: Acute (8) Mucus plugging of bronchi Status: Acute (9) Sepsis Status: Acute (10) SOB (shortness of breath) Status: Acute (11) SOB (shortness of breath) Status: Acute Review of Systems Constitutional: No fever Respiratory: + dyspnea on exertion, No dyspnea at rest, No hemoptysis Cardiac: No chest pain Abdomen: No pain Objective Vital Signs Date Time Temp Pulse Resp B/P (MAP) Pulse Ox O2 Delivery O2 Flow Rate FiO2 12/15/17 19:51 96 22 91 Room Air 12/15/17 15:46 18 92 Nasal Cannula 2.0 12/15/17 15:41 36.4 94 20 125/69 (87) 89 Room Air 12/15/17 15:40 Room Air 12/15/17 14:02 102 18 94 Room Air 12/15/17 07:49 36.6 89 16 118/64 (82) 95 Nasal Cannula 2.0 12/15/17 07:45 95 Nasal Cannula 2.0 12/15/17 07:41 85 18 95 Nasal Cannula 2.0 12/15/17 01:58 99 20 93 Nasal Cannula 2.0 12/15/17 00:45 18 12/14/17 22:45 36.8 104 28 109/57 (74) 93 Room Air Physical Exam General Appearance: no apparent distress ENT: pharynx normal Neck: no JVD Respiratory/Chest: no respiratory distress, no accessory muscle use, + wheezing (b/l) Cardiovascular: regular rate, rhythm, no gallop, no murmur Abdomen: normal bowel sounds, non tender, soft, no organomegaly Extremities: no pedal edema Neurologic/Psychiatric: alert, oriented x 3 Laboratory Results Last 24 Hours Test 12/15/17 06:28 Sodium Level 133 mmol/L Potassium Level 3.9 mmol/L Chloride Level 98 mmol/L Carbon Dioxide Level 27 mmol/L Anion Gap 8.0 mmol/L Blood Urea Nitrogen 20 mg/dl Creatinine 1.15 mg/dl Est Creatinine Clear Calc Drug Dose 79.0 ml/min Estimated GFR () 75.9 Estimated GFR (Non- 65.5 BUN/Creatinine Ratio 17.0 Random Glucose 167 mg/dl Calcium Level 8.7 mg/dl Total Bilirubin 1.2 mg/dl Direct Bilirubin 0.3 mg/dl Aspartate Amino Transf (AST/SGOT) 19 U/L Alanine Aminotransferase (ALT/SGPT) 62 U/L Alkaline Phosphatase 57 U/L Total Protein 6.5 gm/dl Albumin 3.1 gm/dl Assessment and Plan 67yo male - 1. COPD with exacerbation - on prednisone 60mg BID. Overall improving. Cont nebs/inhalers and dornase. Incentive haleigh/pulm toilet. Appreciate pulmonary consultation and recommendations. Dr. Alamo recommending bronch on Sunday and to d/c antibiotics at this time. CT chest findings reviewed with Dr. Alamo by phone. Patient had been taking prednisone daily at home (20mg) prior to admission. 2. chronic cough - thought to be from COPD but definitive dx has been elusive. Has had extensive w/u in the past for this including numerous bronchs, biopsies , EGD, dysphagia w/u, etc. 3. hypothyroidism - cont synthroid. TSH 10/2017 was satisfactory. 4. ADELAIDA - CPAP at hs. 5. hyponatremia - per records this is chronic and Na is at baseline. SIADH? Check serum osm, urine osm, urine Na. 6. abnormal LFTs - mild - uncertain etiology; repeat in am. 7. crohn's disease - controlled at this time. Cont mesalamine. 8. HTN - controlled with losartan & diuretics. 9. DVT proph - heparin TID; hold starting Sunday pm for bronch on Sunday am. 10. abnormal LFTs - mild elevations - uncertain cause but recheck today shows improvement. Continued [facility] stay due to: multiple IV medications needed Discharge planning: home
[2017-12-15] MEDS: DOXEPIN HCL 6 MG PO SCH (21:30)
[2017-12-15] MEDS: HEPARIN SOD 5000 UNIT/0.5 ML CARP SQ SCH (21:35)
[2017-12-16] VITALS (7 sets, daily range): BP systolic 124–143; BP diastolic 64–72; PULSE 84–94; TEMP 36.3–36.6; O2SAT 91–96
[2017-12-16] MEDS: LEVALBUTEROL 1.25MG/0.5ML NEB INH SCH ×4 (01:59→19:43)
[2017-12-16] MEDS: IPRATROPIUM BROMIDE NEB SOLN 0.02% 2.5 ML VIAL INH SCH ×4 (01:59→19:43)
[2017-12-16] MEDS: LEVOTHYROXINE 88 MCG TAB PO SCH (05:48)
[2017-12-16] MEDS: HEPARIN SOD 5000 UNIT/0.5 ML CARP SQ SCH ×2 (05:56→14:14)
[2017-12-16 06:17] LABS: BASO % 0.1 %; BASO ABS # 0.01 K/uL (0-0.2); HEMATOCRIT 38.2 % (42-52); HEMOGLOBIN 12.7 g/dL (14.0-18.0); IG# 0.08 K/uL (0.00-0.02); LYMPH % 2.5 %; LYMPH ABS # 0.48 K/uL (1.2-3.4); MEAN CELL VOLUME 93.9 fL (80-100); MEAN CORPUSCULAR HEMOGLOBIN 31.2 pg (25-34); MEAN CORPUSCULAR HGB CONC 33.2 g/dl (32-36); MEAN PLATELET VOLUME 10.9 fL (7.4-10.4); MONO % 3.4 %; MONO ABS # 0.67 K/uL (0.11-0.59); NEUT % 93.6 %; NEUT ABS # 18.32 K/uL (1.4-6.5); PLATELET COUNT 245 K/uL (130-400); RED CELL DISTRIBUTION WIDTH CV 16.2 % (11.5-14.5); RED CELL DISTRIBUTION WIDTH SD 55.5 fL (36.4-46.3); WHITE BLOOD COUNT 19.56 K/uL (4.8-10.8)
[2017-12-16 06:33] LABS: CALCIUM 8.8 mg/dl (8.5-10.1); POTASSIUM 3.8 mmol/L (3.5-5.1)
[2017-12-16] MEDS: DORNASE ALFA 2.5 ML AMP INH SCH ×2 (07:37→19:44)
[2017-12-16] MEDS: COLESTIPOL HCL 1 GM TAB PO SCH ×2 (08:41→21:01)
[2017-12-16] MEDS: TIOTROPIUM BROMIDE 5 PUFF/90 MCG INH INH SCH (08:41)
[2017-12-16] MEDS: MULTIVITAMIN TAB PO SCH (08:42)
[2017-12-16] MEDS: GUAIFENESIN 600 MG TABCR PO SCH ×2 (08:42→21:02)
[2017-12-16] MEDS: SPIRONOLACTONE 25 MG TAB PO SCH (08:43)
[2017-12-16] MEDS: CHOLECALCIFEROL 1000 INTER.UNIT TAB PO SCH (08:43)
[2017-12-16] MEDS: CYANOCOBALAMIN 100 MCG TAB (VIT B-12) PO SCH (08:43)
[2017-12-16] MEDS: BENZONATATE 100MG CAP PO PRN (08:43)
[2017-12-16] MEDS: NEPHROCAPS PO SCH (08:43)
[2017-12-16] MEDS: TORSEMIDE 20 MG TAB PO SCH (08:43)
[2017-12-16] MEDS: LOSARTAN POTASSIUM 25 MG TAB PO SCH (08:44)
[2017-12-16] MEDS: LOPERAMIDE HCL 2 MG CAP PO SCH ×2 (08:44→21:02)
[2017-12-16] MEDS: BUDESONIDE/FORMOTEROL FUMARATE 160/4.5 60 PUFFS/INHALER INH SCH ×2 (08:44→21:00)
[2017-12-16] MEDS: MESALAMINE 0.375 GM PO SCH (08:45)
[2017-12-16] MEDS ORDERED: VANCOMYCIN CONSULT ACTIVE PRN (09:15)
[2017-12-16] MEDS ORDERED: PIPERACILL/TAZOBAC CONSULT ACTIVE PRN (09:15)
[2017-12-16] MEDS ORDERED: PIPERACILL/TAZOBAC IV 3.375 GM in DEXTROSE 5% 100ML IV ONE (09:30)
[2017-12-16] MEDS ORDERED: VANCOMYCIN IV 2,500 MG in SODIUM CHLORIDE 0.9% 500ML 500 ML IV ONE (09:30)
--- NOTE | 2017-12-16 10:45 | Pulmonology Progress Note ---
Pulmonary Progress Note Date of Service Dec 16, 2017. Attending Dr. Alamo Subjective Patient notes increasing cough with some difficulty clearing mucus secretions but denies: Fever, chills, hemoptysis Objective Patient able to sit up in a chair with notable tachypnea during our conversation Vital signs: Stable on 2 L nasal cannula Respiratory: Bilateral expiratory wheezing but notable rhonchi appreciated at the bases bilaterally Cardiac: S1-S2 regular rate and rhythm Abdomen: Positive bowel sounds soft nontender Extremity: No clubbing cyanosis or edema next Assessment & Plan 67-year-old male with recurrent bronchitis and active flare: 1. Bronchitis: Patient's WBC count notably ori over the last 24 hours I will initiate Zosyn as well as vancomycin at this time and perform a nasal swab for MRSA. If the nasal swab is negative will discontinue vancomycin but continue Zosyn. Along those lines at also like to move forward with bronchoscopies and the patient agrees on 12/17/2017. Consent is being signed and orders been placed at this time. I believe the highest clinical possibility for patient's recurrent bronchitis is aspiration at this time. Data Medications: Current Inpatient Medications Medications (Trade) Dose Ordered Sig/Jeffery Route Start Time Stop Time Status Last Admin Dose Admin Acetaminophen (Tylenol Tab) 650 mg Q4H PRN PO 12/13/17 18:45 01/12/18 18:44 Polyethylene (Miralax Powder Packet) 17 gm DAILY PRN PO 12/13/17 18:45 01/12/18 18:44 Ondansetron HCl (Zofran Inj) 4 mg Q6H PRN IV 12/13/17 18:45 01/12/18 18:44 Guaifenesin (Mucinex Contr Rel Tab) 1,200 mg Q12 PO 12/13/17 21:00 01/12/18 20:59 12/16/17 08:42 1,200 MG Albuterol Sulfate (Ventolin 0.083% 2.5MG/3ML Neb) 2.5 mg Q4 PRN INH 12/13/17 19:30 01/12/18 19:29 Benzonatate (Tessalon Perles Cap) 100 mg TID PRN PO 12/13/17 19:30 01/12/18 19:29 12/16/17 08:43 100 MG Budesonide/ Formoterol Fumarate (Symbicort 160/ 4.5 Inh) 2 puffs BID INH 12/13/17 21:00 01/12/18 20:59 12/16/17 08:44 2 PUFFS Cholecalciferol (Vitamin D Tab) 1,000 inter.unit QAM PO 12/14/17 09:00 01/13/18 08:59 12/16/17 08:43 1,000 INTER.UNIT Colestipol HCl (Colestid Tab) 1 gm BID PO 12/13/17 21:00 01/12/18 20:59 12/16/17 08:41 1 GM Cyanocobalamin (Vitamin B-12 Tab) 100 mcg QAM PO 12/14/17 09:00 01/13/18 08:59 12/16/17 08:43 100 MCG Dornase Robin (Pulmozyme Inhalation Soln 2.5ml Amp) 2.5 ml BIDR INH 12/14/17 08:00 01/13/18 07:59 12/16/17 07:37 2.5 ML Codeine Phosphate/ Guaifenesin (Robitussin-AC Sugar Free Syrup) 5 ml TID PRN PO 12/13/17 19:30 01/12/18 19:29 12/14/17 21:02 5 ML Levothyroxine Sodium (Synthroid Tab) 88 mcg DAILYBB PO 12/14/17 06:00 01/13/18 05:59 12/16/17 05:48 88 MCG Losartan Potassium (coZAAR TAB) 25 mg DAILY PO 12/14/17 09:00 01/13/18 08:59 12/16/17 08:44 25 MG Multivitamins (Multivitamin Tab) 1 tab QAM PO 12/14/17 09:00 01/13/18 08:59 12/16/17 08:42 1 TAB Spironolactone (Aldactone Tab) 25 mg QAM PO 12/14/17 09:00 01/13/18 08:59 12/16/17 08:43 25 MG Tiotropium [place] (Spiriva Handihaler Inhaler) 1 puff QAM INH 12/14/17 09:00 01/13/18 08:59 12/16/17 08:41 1 PUFF Vitamin B Complex/ Vit C/Folic Acid (Nephrocaps) 1 cap QAM PO 12/14/17 09:00 01/13/18 08:59 12/16/17 08:43 1 CAP Loperamide HCl (Imodium Cap) 2 mg BID PO 12/13/17 21:00 01/12/18 20:59 12/16/17 08:44 2 MG Prednisone (PredniSONE TAB) 60 mg BID PO 12/13/17 19:41 01/12/18 19:40 12/16/17 08:42 60 MG Ipratropium [place] (Atrovent 0.02% 0.5MG/2.5ML Neb) 0.5 mg Q6R INH 12/13/17 21:00 01/12/18 20:59 12/16/17 07:37 0.5 MG Levalbuterol (Xopenex 1.25MG/ 0.5ML Neb) 1.25 mg Q6R INH 12/13/17 21:00 01/12/18 20:59 12/16/17 07:37 1.25 MG Ipratropium [place] (Atrovent 0.02% 0.5MG/2.5ML Neb) 0.5 mg Q2H PRN INH 12/13/17 21:00 01/12/18 20:59 12/14/17 06:11 0.5 MG Levalbuterol (Xopenex 1.25MG/ 0.5ML Neb) 1.25 mg Q2H PRN INH 12/13/17 21:00 01/12/18 20:59 12/14/17 06:12 1.25 MG Mesalamine (Apriso) 1.5 gm QAM PO 12/14/17 09:00 01/13/18 08:59 12/16/17 08:45 1.5 GM Doxepin HCl (Silenor) 3 mg HS PO 12/13/17 21:00 01/12/18 20:59 12/15/17 21:30 3 MG Torsemide (Demadex Tab) 20 mg DAILY PO 12/15/17 09:00 01/14/18 08:59 12/16/17 08:43 20 MG Heparin Sodium (Porcine) (Heparin Sq 5000 Unit/0.5ml) 5,000 unit Q8 SQ 12/15/17 22:00 01/14/18 21:59 12/16/17 05:56 5,000 UNIT Vancomycin HCl 2500 mg/Sodium Chloride 550 ml @ 200 mls/hr NOW ONCE IV 12/16/17 09:30 12/16/17 12:14 12/16/17 10:31 200 MLS/HR Miscellaneous Information (Consult) 1 ea UD PRN N/A 12/16/17 09:15 01/15/18 09:14 Piperacillin Sod/ Tazobactam Sod 3.375 gm/Dextrose 115 ml @ 28.75 mls/ hr Q8 IV 12/16/17 14:00 12/23/17 13:59 UNV Miscellaneous Information (Consult) 1 ea UD PRN N/A 12/16/17 09:15 01/15/18 09:14 Vital Signs: Date Time Temp Pulse Resp B/P (MAP) Pulse Ox O2 Delivery O2 Flow Rate FiO2 12/16/17 08:35 36.3 86 17 143/64 (90) 94 Room Air 12/16/17 07:38 87 18 94 Room Air 12/16/17 02:00 84 24 96 Nasal Cannula 2.0 12/15/17 23:36 Nasal Cannula 12/15/17 22:52 36.6 89 24 101/57 (72) 94 Room Air 12/15/17 19:51 96 22 91 Room Air 12/15/17 15:46 18 92 Nasal Cannula 2.0 12/15/17 15:41 36.4 94 20 125/69 (87) 89 Room Air 12/15/17 15:40 Room Air 12/15/17 14:02 102 18 94 Room Air Laboratory Results: Last 24 Hours Test 12/15/17 22:02 12/16/17 05:54 Urine Osmolality 517 mOms/kg Urine Random Sodium 17 mEq/L White Blood Count 19.56 K/uL Red Blood Count 4.07 M/uL Hemoglobin 12.7 g/dL Hematocrit 38.2 % Mean Corpuscular Volume 93.9 fL Mean Corpuscular Hemoglobin 31.2 pg Mean Corpuscular Hemoglobin Concent 33.2 g/dl Platelet Count 245 K/uL Mean Platelet Volume 10.9 fL Neutrophils (%) (Auto) 93.6 % Lymphocytes (%) (Auto) 2.5 % Monocytes (%) (Auto) 3.4 % Eosinophils (%) (Auto) 0.0 % Basophils (%) (Auto) 0.1 % Neutrophils # (Auto) 18.32 K/uL Lymphocytes # (Auto) 0.48 K/uL Monocytes # (Auto) 0.67 K/uL Eosinophils # (Auto) 0.00 K/uL Basophils # (Auto) 0.01 K/uL RDW Standard Deviation 55.5 fL RDW Coefficient of Variation 16.2 % Immature Granulocyte % (Auto) 0.4 % Immature Granulocyte # (Auto) 0.08 K/uL Sodium Level 134 mmol/L Potassium Level 3.8 mmol/L Chloride Level 100 mmol/L Carbon Dioxide Level 26 mmol/L Anion Gap 8.0 mmol/L Blood Urea Nitrogen 21 mg/dl Creatinine 1.00 mg/dl Est Creatinine Clear Calc Drug Dose 90.9 ml/min Estimated GFR () 89.9 Estimated GFR (Non- 77.5 BUN/Creatinine Ratio 20.7 Random Glucose 165 mg/dl Osmolality 287 mOsm/kg Calcium Level 8.8 mg/dl
--- NOTE | 2017-12-16 16:20 | Pharmacy Progress Note ---
Pharmacy Abx Dose Short Note Date of Service Dec 16, 2017. Assessment & Plan Item Value Date Time Blood Culture Ordered 12/16/17 1606 Blood Pending Blood Culture Ordered 12/16/17 1606 Blood Pending MRSA DNA Surveillance Screen - Final Complete 12/16/17 0935 Nasal Specimen Negative for MRSA by DNA Probe Gram Stain - Final Complete 12/14/17 0218 Sputum Expectorated Sputum HAEMO. INFLU BETALACTAMASE NEG Blood Culture - Preliminary Resulted 12/13/17 2053 Blood Gram Positive Bacilli Blood Culture - Preliminary Resulted 12/13/17 1737 Blood NO GROWTH TO DATE. Assessment 67 year old male receiving vanc/zosyn for treatment of pulmonary source infection with aspiration risk, now with 1/2 BC gram(+) bacilli and repeating new BC x 2 today. * Day # 1 of antimicrobial therapy. Plan Vancomycin * Estimate p'kinetics: Vd~0.7L/kg, Ke~0.0799, T1/2~8.5 hrs * LOADING DOSE: VANC 2500mg (24mg/kg) IV x 1 * MAINTENANCE DOSE: VANC 1500mg (~15mg/kg) IV every 12 hours * Goal trough level: 15 to 20 mcg/mL * VANC Trough @Css prior to 12/18 1000 dose. ZOSYN: Continue 3.375grams IV CI q 8 hours for GFR >20mL/min. Pharmacy will continue to follow and will adjust dose/frequency as necessary. Thank you.
[2017-12-16] MEDS: PIPERACILL/TAZOBAC IV 3.375 GM in DEXTROSE 5% 100ML 100 ML IV SCH (16:30)
--- NOTE | 2017-12-16 18:53 | Hospitalist Progress Note ---
Hospitalist Progress Note Date of Service Dec 16, 2017. Subjective Pt evaluation today including: conversation w/ patient, conversation w/ family Patient feels better today. He reports cough is almost completely gone, he has no sputum production at all now. He does feel little short of breath with ambulation, but not so much at rest. His appetite is good. He denies diarrhea. He is making good amount of urine. He does report that he stopped the Imuran about 6 months ago after I last saw him in the hospital in March 2017. Constitutional: No fever Cardiovascular: No chest pain Abdomen: No pain All Other Systems: Reviewed and Negative Objective Vital Signs Date Time Temp Pulse Resp B/P (MAP) Pulse Ox O2 Delivery O2 Flow Rate FiO2 12/16/17 15:07 36.6 89 18 129/64 (85) 92 Room Air 12/16/17 14:15 87 18 95 Room Air 12/16/17 08:35 36.3 86 17 143/64 (90) 94 Room Air 12/16/17 08:05 Room Air 12/16/17 07:38 87 18 94 Room Air 12/16/17 02:00 84 24 96 Nasal Cannula 2.0 12/15/17 23:36 Nasal Cannula 12/15/17 22:52 36.6 89 24 101/57 (72) 94 Room Air 12/15/17 19:51 96 22 91 Room Air Physical Exam General Appearance: WD/WN, no apparent distress Eyes: normal inspection, sclerae normal ENT: hearing grossly normal Neck: trachea midline Respiratory/Chest: no accessory muscle use, + pertinent finding (Mild tachypnea at rest, diffuse rhonchi and expiratory wheezes, more pronounced in the middle and lower lung conway bilaterally) Cardiovascular: regular rate, rhythm, no edema, no gallop, no murmur Abdomen: normal bowel sounds, non tender, soft Extremities: non-tender, normal inspection, no pedal edema, no calf tenderness Neurologic/Psychiatric: alert, normal mood/affect, oriented x 3 Skin: normal color, warm/dry, no rash Laboratory Results Last 24 Hours Test 12/15/17 22:02 12/16/17 05:54 Urine Osmolality 517 mOms/kg Urine Random Sodium 17 mEq/L White Blood Count 19.56 K/uL Red Blood Count 4.07 M/uL Hemoglobin 12.7 g/dL Hematocrit 38.2 % Mean Corpuscular Volume 93.9 fL Mean Corpuscular Hemoglobin 31.2 pg Mean Corpuscular Hemoglobin Concent 33.2 g/dl Platelet Count 245 K/uL Mean Platelet Volume 10.9 fL Neutrophils (%) (Auto) 93.6 % Lymphocytes (%) (Auto) 2.5 % Monocytes (%) (Auto) 3.4 % Eosinophils (%) (Auto) 0.0 % Basophils (%) (Auto) 0.1 % Neutrophils # (Auto) 18.32 K/uL Lymphocytes # (Auto) 0.48 K/uL Monocytes # (Auto) 0.67 K/uL Eosinophils # (Auto) 0.00 K/uL Basophils # (Auto) 0.01 K/uL RDW Standard Deviation 55.5 fL RDW Coefficient of Variation 16.2 % Immature Granulocyte % (Auto) 0.4 % Immature Granulocyte # (Auto) 0.08 K/uL Sodium Level 134 mmol/L Potassium Level 3.8 mmol/L Chloride Level 100 mmol/L Carbon Dioxide Level 26 mmol/L Anion Gap 8.0 mmol/L Blood Urea Nitrogen 21 mg/dl Creatinine 1.00 mg/dl Est Creatinine Clear Calc Drug Dose 90.9 ml/min Estimated GFR () 89.9 Estimated GFR (Non- 77.5 BUN/Creatinine Ratio 20.7 Random Glucose 165 mg/dl Osmolality 287 mOsm/kg Calcium Level 8.8 mg/dl Assessment and Plan This patient is a 67 y/o male with a history of COPD, recurrent pulmonary infections, tracheitis, ADELAIDA on 2 LNC nocturnally, chronic diastolic CHF, Crohn' s disease, HLD, HTN, hypothyroidism, candidiasis, chronic steroid use and insomnia who presents with worsening onset of shortness of breath and sputum production, found to have bilateral lower lobe pneumonia and acute bronchitis, with acute hypoxemic respiratory failure. Has a history of numerous hospitalizations in the last year i.e. greater than 7. Acute bronchitis/COPD Exacerbation/acute on chronic hypoxemic respiratory failure/recurrent pneumonia-is improved since admission on IV antibiotics and increased dose of steroids. Is now weaned off of oxygen, and symptoms of cough and sputum production are improved. Has had numerous inpatient and outpatient bronchoscopies, tracheal biopsy, right heart cath, imaging studies, all to look for source of his recurrent infections. At this point, pulmonology suspecting recurrent aspiration pneumonia as most likely possibility. Had leukocytosis worsening this morning up to 19,000-could be from steroids, but could be from undertreated infection, remains afebrile Growing heavy growth of Haemophilus influenzae beta-lactamase negative out of sputum culture which is likely to be a true pathogen Blood cultures 1/2 bottles growing gram-positive bacilli-could be contaminant, but patient is immune suppressed, possibility of skin jennifer versus Listeria? -Continue antibiotics that were restarted today of Zosyn to cover for aspiration pneumonia and the Haemophilus influenzae, vancomycin to cover for gram-positive bacilli in the blood until ID and sensitivity finalized -Repeat blood cultures now -Appreciate pulmonary consultation-plan for bronchoscopy on Sunday -Continue prednisone and taper back down to home dose as able to based on clinical improvement -Continue bronchodilators -Continue Symbicort, Spiriva -Continue dornase -Continue Mucinex -Continue antitussives Chronic diastolic CHF--stable, not volume overloaded -Continue torsemide Crohn's--stable, actually improved after stopping Imuran 6 months ago -Continue mesalamine Hyperlipidemia - Continue Colestipol 1 gm PO BID HTN--stable, blood pressure is controlled -continue losartan, Aldactone, and torsemide Hypothyroidism-last TSH slightly low in 10/2017 - Continue Synthroid 88 mcg PO qPM -TSH in the morning Insomnia - Continue doxepin ADELAIDA-on nocturnal O2-stable -Continue O2 nocturnally [id number] place on hold for bronchoscopy tomorrow Disposition-to home when medically stable in 1-2 days
[2017-12-16] MEDS: DOXEPIN HCL 6 MG PO SCH (21:01)
[2017-12-16] MEDS: VANCOMYCIN IV 1,500 MG in SODIUM CHLORIDE 0.9% 500ML 500 ML IV SCH (22:03)
[2017-12-17] VITALS (16 sets, daily range): BP systolic 109–130; BP diastolic 60–70; PULSE 67–104; TEMP 36.2–36.5; O2SAT 90–97
[2017-12-17] MEDS: PIPERACILL/TAZOBAC IV 3.375 GM in DEXTROSE 5% 100ML 100 ML IV SCH ×3 (00:57→15:54)
[2017-12-17] MEDS: IPRATROPIUM BROMIDE NEB SOLN 0.02% 2.5 ML VIAL INH SCH ×4 (01:53→20:10)
[2017-12-17] MEDS: LEVALBUTEROL 1.25MG/0.5ML NEB INH SCH ×4 (01:53→20:10)
[2017-12-17] MEDS: LEVOTHYROXINE 88 MCG TAB PO SCH (05:47)
[2017-12-17 06:31] LABS: BASO ABS # 0.01 K/uL (0-0.2); HEMATOCRIT 40.1 % (42-52); HEMOGLOBIN 13.2 g/dL (14.0-18.0); IG# 0.12 K/uL (0.00-0.02); LYMPH % 2.4 %; LYMPH ABS # 0.48 K/uL (1.2-3.4); MEAN CELL VOLUME 94.1 fL (80-100); MEAN CORPUSCULAR HGB CONC 32.9 g/dl (32-36); MEAN PLATELET VOLUME 10.9 fL (7.4-10.4); MONO % 3.7 %; MONO ABS # 0.74 K/uL (0.11-0.59); NEUT % 93.3 %; NEUT ABS # 18.73 K/uL (1.4-6.5); PLATELET COUNT 277 K/uL (130-400); RED CELL DISTRIBUTION WIDTH CV 16.3 % (11.5-14.5); RED CELL DISTRIBUTION WIDTH SD 56.3 fL (36.4-46.3); WHITE BLOOD COUNT 20.08 K/uL (4.8-10.8)
[2017-12-17 07:01] LABS: CREATININE 1.07 mg/dl (0.60-1.40); POTASSIUM 3.7 mmol/L (3.5-5.1)
[2017-12-17] MEDS: DORNASE ALFA 2.5 ML AMP INH SCH ×2 (07:45→20:10)
--- NOTE | 2017-12-17 07:48 | Pre Sedation Assessment ---
Pre Sedation Assessment General Date of Sedation: Dec 17, 2017. Vital Signs Past 12 Hours Date Time Temp Pulse Resp B/P (MAP) Pulse Ox O2 Delivery O2 Flow Rate FiO2 12/17/17 01:53 104 28 94 Nasal Cannula 2.0 12/16/17 23:36 Nasal Cannula 2.0 12/16/17 23:00 36.6 84 22 124/72 (89) 94 Nasal Cannula 2.0 Review Cardiovascular: regular rate, rhythm, no edema, no gallop, no JVD, no murmur, normal peripheral pulses Lungs: + rhonchi Pre-Sedation Airway Assessment Smoking Status: Former Smoker Hx of Sleep Apnea: Yes Hx of difficult intubation: No Short Thick Neck: No Thyro-mental Distance: > 3 Finger Breadths Oral Cavity: Dentures Mallampati Classification: Class II ASA Classification: Class II NPO Status Date of Last Intake of Fluids: Dec 17, 2017 Time of Last Intake of Fluids: 0530 Date of Last Intake of Solids: Dec 16, 2017 Procedure Planning Contraindications for Sedation: None Current Medications Reviewed: Yes Notes The planned sedation has been discussed with the patient. Informed Consent was obtained. I have identified the patient, determined the appropriateness of sedation and have assessed the patient immediately prior to the procedure. All medicine(s) and interventions are by my order.
--- NOTE | 2017-12-17 09:06 | Bronchoscopy Procedure Note ---
Bronchoscopy Procedure Note Procedure: Bronchoscopy, conscious sedation, BAL Consent: Obtained through the patient placed into the chart Pre-procedural diagnosis: chronic bronchitis with acute flare an Post-procedural diagnosis: Start time: 0840 End time: 0900 Total time: 20 minutes Analgesia: 2% liquid lidocaine: Via nebulizer 4% gel lidocaine: Via right naris 2% liquid lidocaine: Via bronchoscopy Sedation: Versed IV: 6 mg Fentanyl IV: 125 g Procedure: The Olympus video bronchoscope was used for this procedure and passed down through the right naris Right naris/posterior naris/posterior oropharynx: Anatomically within normal limits, diffuse mucus secretions throughout the right naris as well as the posterior nasopharynx all the way down to the epiglottis Glottis: Anatomically within normal limits, diffuse mucus secretions surrounding the epiglottis as well as in the vallecula Vocal cords: Proper abduction and abduction, anatomically within normal limits Subglottis: Anatomically within normal limits Trachea: Anatomically within normal limits but diffuse EDAC approximately 95% for the mid one third, small granuloma 3 cm above the level of the behzad site of previous tracheal biopsy Behzad: Anatomically within normal limits, diffuse mucus secretions Right bronchial tree: Right mainstem bronchus: Anatomically within normal limits, EDAC approximately 95% Right upper lobe: Anatomically within normal limits, diffuse mucus secretions Bronchus intermedius: Anatomically within normal limits, diffuse mucus secretions Right middle lobe: Anatomically within normal limits, diffuse mucus secretions Right lower lobe: Anatomically within normal limits, diffuse mucus secretions noted Findings: Diffuse mucus secretions throughout, with EDAC Left bronchial tree: Left mainstem bronchus: Anatomically within normal limits, EDAC 80% with diffuse mucus secretions Left upper lobe: Anatomically within normal limits, diffuse mucus secretions Lingula: Anatomically within normal limits, diffuse mucus secretions Left lower lobe: Anatomically within normal limits, diffuse mucus secretions Findings: diffuse mucus secretions Bronchial alveolar lavage: Left lower lobe EBL: None Complications: None Follow-up: ASU
[2017-12-17] MEDS ORDERED: FENTANYL CITRATE INJ 50 MCG/1 ML 2 ML VIAL IV ONE (09:14)
[2017-12-17] MEDS ORDERED: LIDOCAINE HCL 2% LOCAL 50ML VIAL INSTIL ONE (09:14)
[2017-12-17] MEDS ORDERED: LIDOCAINE 4% INH SOLN 4 ML BTL TOP ONE (09:14)
[2017-12-17] MEDS ORDERED: LIDOCAINE VISCOUS 2% 100ML TOP ONE (09:14)
[2017-12-17] MEDS ORDERED: MIDAZOLAM HCL 5 MG/ML 1 ML VIAL IV ONE (09:14)
[2017-12-17] MEDS: VANCOMYCIN IV 1,500 MG in SODIUM CHLORIDE 0.9% 500ML 500 ML IV SCH ×2 (09:44→21:58)
[2017-12-17] MEDS: BUDESONIDE/FORMOTEROL FUMARATE 160/4.5 60 PUFFS/INHALER INH SCH ×2 (09:46→21:02)
[2017-12-17] MEDS: TIOTROPIUM BROMIDE 5 PUFF/90 MCG INH INH SCH (09:47)
--- NOTE | 2017-12-17 09:49 | Progress Note ---
Progress Note Date of Service Dec 17, 2017. Progress Note ID Consult Dictated #[id number] A/P: 1. Pna/COPD 2. Positive blood culture - gpr 1/2 sets -Continue abx for now, s/p bronch this am, await results -Suspect gpr is contaminant but follow repeat blood cultures -Will follow, thank you
--- NOTE | 2017-12-17 10:09 | INFECT. DISEASE CONSULTATION ---
DATE OF CONSULTATION: 12/17/2017 HISTORY OF PRESENT ILLNESS: This is a 67-year-old male who was admitted to the hospital on the with worsening shortness of breath and productive cough that had begun a few days prior. He does have a history of chronic COPD, history of mucous plugging, obstructive sleep apnea and is on supplemental oxygen of 2 liters at home. He did have a sputum culture done on the , which grew Haemophilus influenzae, which was beta lactamase negative. His initial blood cultures in the Emergency Room are growing a gram-positive leobardo in 1 out of 2 sets. Repeat blood cultures were obtained yesterday and are pending. He remains on vancomycin and Zosyn. He is also on chronic oral prednisone and remains on this. His white blood cell count has increased to 20,000 during this admission. His LFTs have been within normal limits. He has been afebrile since admission. He did have a CAT scan of the chest over the weekend, which showed bilateral infiltrates. Pulmonary has been following and he did undergo bronchoscopy this morning. I am seeing him as he is returning to the floor from bronchoscopy. He states that he is groggy, but overall states he is feeling better. He denies any fevers or chills. He continues to complain of productive cough and is coughing during my exam. He denies any chest pain, nausea, vomiting or diarrhea. His remaining review of systems is limited, but unremarkable. PAST MEDICAL HISTORY: Significant for bronchitis, COPD, emphysema, hypertension. PAST SURGICAL HISTORY: Significant for bronchoscopy. FAMILY HISTORY: Noncontributory. SOCIAL HISTORY: Significant for history of tobacco use. He denies any alcohol or drug use. ALLERGIES: He has no known drug allergies. CURRENT MEDICATIONS: Include prednisone, vancomycin, Zosyn, torsemide, vitamin D, vitamin B12, Cozaar, multivitamin, Aldactone, Spiriva, Nephrocaps, Pulmozyme, Synthroid, Mucinex, Symbicort, Colestid, Imodium, Atrovent, Xopenex, doxepin, albuterol, Tessalon Perles, Robitussin, Tylenol, MiraLax and Zofran. PHYSICAL EXAMINATION: VITAL SIGNS: He is afebrile, pulse 67, respiratory rate 18, blood pressure 124/66, oxygen saturation is 93% on 4 liters nasal cannula. GENERAL: He is awake, alert and oriented. He is groggy just returning from bronchoscopy. HEENT: Mucous membranes are moist. Extraocular muscles are intact. HEART: Regular. LUNGS: Have diffuse rhonchi bilaterally. ABDOMEN: Soft and nondistended. There is no edema. LABORATORY STUDIES: CBC today reveals a white blood cell count of 20, hemoglobin 13.2, platelets 277. Chemistry panel: Sodium 135, potassium 3.7, chloride 101, bicarbonate 23, BUN 18, creatinine 1.0, glucose is 186. Urinalysis was not done during this admission. Herpes simplex cultures are pending. Again, initial blood cultures from the are growing gram-positive rods in 1 out of 2 sets. Sensitivities are pending. Repeat blood cultures are pending. A sputum culture is growing Haemophilus influenzae. Bronch specimens are pending. IMAGING: As above. ASSESSMENT AND PLAN: Bilateral pneumonia with Haemophilus influenzae. At this time, he will remain on broad-spectrum antibiotics. I suspect the gram-positive leobardo in his blood stream is a contaminant, but we will await additional blood culture results. Bronch specimens are pending and I will await the results of these as well. Thank you for this consultation.
[2017-12-17] MEDS: LOPERAMIDE HCL 2 MG CAP PO SCH ×2 (11:33→21:02)
[2017-12-17] MEDS: NEPHROCAPS PO SCH (11:34)
[2017-12-17] MEDS: GUAIFENESIN 600 MG TABCR PO SCH ×2 (11:34→21:01)
[2017-12-17] MEDS: CHOLECALCIFEROL 1000 INTER.UNIT TAB PO SCH (11:34)
[2017-12-17] MEDS: LOSARTAN POTASSIUM 25 MG TAB PO SCH (11:34)
[2017-12-17] MEDS: MULTIVITAMIN TAB PO SCH (11:35)
[2017-12-17] MEDS: TORSEMIDE 20 MG TAB PO SCH (11:35)
[2017-12-17] MEDS: CYANOCOBALAMIN 100 MCG TAB (VIT B-12) PO SCH (11:35)
[2017-12-17] MEDS: SPIRONOLACTONE 25 MG TAB PO SCH (11:35)
[2017-12-17] MEDS: BENZONATATE 100MG CAP PO PRN ×2 (11:35→21:59)
[2017-12-17] MEDS: MESALAMINE 0.375 GM PO SCH (11:36)
[2017-12-17] MEDS: COLESTIPOL HCL 1 GM TAB PO SCH ×2 (11:36→19:53)
[2017-12-17] MEDS: IPRATROPIUM BROMIDE NEB SOLN 0.02% 2.5 ML VIAL INH PRN (12:40)
[2017-12-17] MEDS: LEVALBUTEROL 1.25MG/0.5ML NEB INH PRN (12:41)
--- NOTE | 2017-12-17 18:26 | Hospitalist Progress Note ---
Hospitalist Progress Note Date of Service Dec 17, 2017. Subjective Pt evaluation today including: conversation w/ patient Patient had bronchoscopy today, he still has shortness of breath with minimal exertion. He is back on oxygen now. Discussed results of bronchoscopy with pulmonology. Denies chest pain, is still coughing. Denies diarrhea. Is afebrile. All Other Systems: Reviewed and Negative Objective Vital Signs Date Time Temp Pulse Resp B/P (MAP) Pulse Ox O2 Delivery O2 Flow Rate FiO2 12/17/17 15:41 36.5 93 18 109/64 (79) 93 Nasal Cannula 3.0 12/17/17 15:10 93 Nasal Cannula 3.0 12/17/17 14:16 80 18 96 Nasal Cannula 3.0 12/17/17 12:42 94 20 97 Nasal Cannula 4.0 12/17/17 11:30 116/60 (78) 12/17/17 11:00 36.3 78 20 123/68 (86) 90 Nasal Cannula 4.0 12/17/17 10:30 36.2 76 20 115/64 (81) 90 Nasal Cannula 4.0 12/17/17 10:11 93 Nasal Cannula 4.0 12/17/17 10:00 36.3 76 20 125/65 (85) 93 Nasal Cannula 4.0 12/17/17 09:36 93 Nasal Cannula 4.0 12/17/17 09:30 36.3 67 18 124/66 (85) 93 Nasal Cannula 4.0 12/17/17 09:15 69 18 121/74 94 Nasal Cannula 4 12/17/17 09:10 71 18 125/68 93 Oxymask 6 12/17/17 09:05 66 20 125/74 93 Oxymask 6 12/17/17 09:00 65 20 128/73 93 Oxymask 6 12/17/17 08:55 68 20 114/71 91 Oxymask 6 12/17/17 08:50 78 18 120/83 93 Oxymask 6 12/17/17 08:45 78 18 132/79 94 Oxymask 6 12/17/17 08:40 76 21 156/82 95 Oxymask 6 12/17/17 08:38 75 21 128/89 98 Oxymask 6 12/17/17 08:00 Nasal Cannula 2.0 12/17/17 07:49 89 19 94 Nasal Cannula 12/17/17 07:48 36.5 72 14 130/70 (90) 92 Room Air 12/17/17 01:53 104 28 94 Nasal Cannula 2.0 12/16/17 23:36 Nasal Cannula 2.0 12/16/17 23:00 36.6 84 22 124/72 (89) 94 Nasal Cannula 2.0 12/16/17 19:45 94 24 91 Room Air Physical Exam General Appearance: WD/WN, + mild distress (Tachypneic with minimal exertion) Eyes: normal inspection, sclerae normal ENT: hearing grossly normal Neck: trachea midline Respiratory/Chest: no accessory muscle use, + rhonchi (Diffuse, with expiratory wheezes) Cardiovascular: regular rate, rhythm, no edema, no gallop, no murmur Abdomen: normal bowel sounds, non tender, soft Extremities: non-tender, normal inspection, no pedal edema, no calf tenderness Neurologic/Psychiatric: alert, normal mood/affect, oriented x 3 Skin: normal color, warm/dry, no rash Laboratory Results Last 24 Hours Test 12/17/17 06:02 12/17/17 08:55 White Blood Count 20.08 K/uL Red Blood Count 4.26 M/uL Hemoglobin 13.2 g/dL Hematocrit 40.1 % Mean Corpuscular Volume 94.1 fL Mean Corpuscular Hemoglobin 31.0 pg Mean Corpuscular Hemoglobin Concent 32.9 g/dl Platelet Count 277 K/uL Mean Platelet Volume 10.9 fL Neutrophils (%) (Auto) 93.3 % Lymphocytes (%) (Auto) 2.4 % Monocytes (%) (Auto) 3.7 % Eosinophils (%) (Auto) 0.0 % Basophils (%) (Auto) 0.0 % Neutrophils # (Auto) 18.73 K/uL Lymphocytes # (Auto) 0.48 K/uL Monocytes # (Auto) 0.74 K/uL Eosinophils # (Auto) 0.00 K/uL Basophils # (Auto) 0.01 K/uL RDW Standard Deviation 56.3 fL RDW Coefficient of Variation 16.3 % Immature Granulocyte % (Auto) 0.6 % Immature Granulocyte # (Auto) 0.12 K/uL Sodium Level 135 mmol/L Potassium Level 3.7 mmol/L Chloride Level 101 mmol/L Carbon Dioxide Level 23 mmol/L Anion Gap 10.0 mmol/L Blood Urea Nitrogen 18 mg/dl Creatinine 1.07 mg/dl Est Creatinine Clear Calc Drug Dose 85.0 ml/min Estimated GFR () 82.8 Estimated GFR (Non- 71.5 BUN/Creatinine Ratio 17.0 Random Glucose 186 mg/dl Calcium Level 9.0 mg/dl Thyroid Stimulating Hormone (TSH) 0.278 uIu/ml Assessment and Plan This patient is a 67 y/o male with a history of COPD, recurrent pulmonary infections, tracheitis, ADELAIDA on 2 LNC nocturnally, chronic diastolic CHF, Crohn' s disease, HLD, HTN, hypothyroidism, candidiasis, chronic steroid use and insomnia who presents with worsening onset of shortness of breath and sputum production, found to have bilateral lower lobe pneumonia and acute bronchitis, with acute hypoxemic respiratory failure. Has a history of numerous hospitalizations in the last year i.e. greater than 7. Acute bronchitis/COPD Exacerbation/acute on chronic hypoxemic respiratory failure/recurrent pneumonia with Haemophilus influenzae-is improved since admission on IV antibiotics and increased dose of steroids. Has had numerous inpatient and outpatient bronchoscopies, tracheal biopsy, right heart cath, imaging studies, all to look for source of his recurrent infections. At this point, pulmonology suspecting recurrent aspiration pneumonia as most likely possibility. Had leukocytosis continues to increase up to 20 K-could be from steroids, remains afebrile, and remains on broad-spectrum antibiotics today Growing heavy growth of Haemophilus influenzae beta-lactamase negative out of sputum culture which is likely to be a true pathogen Blood cultures 1/2 bottles growing gram-positive bacilli-could be contaminant, but patient is immune suppressed, possibility of skin jennifer versus Listeria?- Still awaiting ID and sensitivity -Continue Zosyn and vancomycin -Appreciate infectious disease consultation -Follow-up blood culture results including repeat blood cultures -Follow-up BAL cultures -Appreciate pulmonary consultation-bronchoscopy with extensive secretions in the nasal passages down into the airways, EDAC of the right and left mainstem bronchi -Continue supplemental O2 to keep pulse ox greater than 92% -Continue prednisone and taper down to 40 mg twice daily today -Continue bronchodilators -Continue Symbicort, Spiriva -Continue dornase -Continue Mucinex -Continue antitussives Chronic diastolic CHF--stable, not volume overloaded -Continue torsemide, spironolactone Crohn's--stable, actually improved after stopping Imuran 6 months ago -Continue mesalamine Hyperlipidemia - Continue Colestipol 1 gm PO BID HTN--stable, blood pressure is controlled -continue losartan, Aldactone, and torsemide Hypothyroidism-last TSH slightly low in 10/2017 and again here at 0.278 - Continue home dose of Synthroid 88 mcg PO qPM Insomnia - Continue doxepin ADELAIDA-on nocturnal O2-stable -Continue O2 nocturnally Arkyhvglofm-ezzzhra-cz biopsies taken today, will restart heparin Disposition-to home when medically stable in 1-2 days
[2017-12-17] MEDS: DOXEPIN HCL 6 MG PO SCH (21:02)
[2017-12-17] MEDS: HEPARIN SOD 5000 UNIT/0.5 ML CARP SQ SCH (21:57)
[2017-12-18] VITALS (8 sets, daily range): BP systolic 121–144; BP diastolic 68–78; PULSE 70–85; TEMP 36.3–36.9; O2SAT 90–96
[2017-12-18] MEDS: GUAIFENESIN/CODEINE 200MG/20MG 10ML UDC PO PRN (00:21)
[2017-12-18] MEDS: PIPERACILL/TAZOBAC IV 3.375 GM in DEXTROSE 5% 100ML 100 ML IV SCH ×3 (00:45→15:48)
[2017-12-18] MEDS: LEVALBUTEROL 1.25MG/0.5ML NEB INH SCH ×4 (01:40→20:19)
[2017-12-18] MEDS: IPRATROPIUM BROMIDE NEB SOLN 0.02% 2.5 ML VIAL INH SCH ×4 (01:40→20:19)
[2017-12-18] MEDS: LEVOTHYROXINE 88 MCG TAB PO SCH (05:38)
[2017-12-18] MEDS: HEPARIN SOD 5000 UNIT/0.5 ML CARP SQ SCH ×3 (05:41→22:03)
[2017-12-18] MEDS: DORNASE ALFA 2.5 ML AMP INH SCH ×2 (07:08→20:19)
[2017-12-18] MEDS: TIOTROPIUM BROMIDE 5 PUFF/90 MCG INH INH SCH (08:28)
[2017-12-18] MEDS: GUAIFENESIN 600 MG TABCR PO SCH ×2 (08:29→20:50)
[2017-12-18] MEDS: BUDESONIDE/FORMOTEROL FUMARATE 160/4.5 60 PUFFS/INHALER INH SCH ×2 (08:29→20:47)
[2017-12-18] MEDS: CHOLECALCIFEROL 1000 INTER.UNIT TAB PO SCH (08:30)
[2017-12-18] MEDS: NEPHROCAPS PO SCH (08:30)
[2017-12-18] MEDS: LOPERAMIDE HCL 2 MG CAP PO SCH ×2 (08:31→20:50)
[2017-12-18] MEDS: LOSARTAN POTASSIUM 25 MG TAB PO SCH (08:31)
[2017-12-18] MEDS: TORSEMIDE 20 MG TAB PO SCH (08:31)
[2017-12-18] MEDS: MULTIVITAMIN TAB PO SCH (08:31)
[2017-12-18] MEDS: SPIRONOLACTONE 25 MG TAB PO SCH (08:32)
[2017-12-18] MEDS: CYANOCOBALAMIN 100 MCG TAB (VIT B-12) PO SCH (08:32)
[2017-12-18] MEDS: COLESTIPOL HCL 1 GM TAB PO SCH ×2 (08:32→20:50)
[2017-12-18] MEDS: MESALAMINE 0.375 GM PO SCH (08:33)
[2017-12-18 09:42] LABS: HEMATOCRIT 39.6 % (42-52); HEMOGLOBIN 12.9 g/dL (14.0-18.0); MEAN CELL VOLUME 94.7 fL (80-100); MEAN CORPUSCULAR HEMOGLOBIN 30.9 pg (25-34); MEAN CORPUSCULAR HGB CONC 32.6 g/dl (32-36); MEAN PLATELET VOLUME 10.8 fL (7.4-10.4); PLATELET COUNT 286 K/uL (130-400); RED CELL DISTRIBUTION WIDTH CV 16.2 % (11.5-14.5); RED CELL DISTRIBUTION WIDTH SD 56.2 fL (36.4-46.3)
[2017-12-18] MEDS: VANCOMYCIN IV 1,500 MG in SODIUM CHLORIDE 0.9% 500ML 500 ML IV SCH (10:02)
[2017-12-18 10:17] LABS: CALCIUM 8.8 mg/dl (8.5-10.1); CREATININE 1.19 mg/dl (0.60-1.40); POTASSIUM 3.8 mmol/L (3.5-5.1)
--- NOTE | 2017-12-18 11:11 | Pharmacy Progress Note ---
Pharmacy Abx Dose Short Note Date of Service Dec 18, 2017. Assessment & Plan Assessment * 67 year old male receiving Vanc/Zosyn for treatment of B/L pneumonia. Pt tested positive for H.influenzae * Gram positive bacilli in 1/2 blood cx (?contaminant). Final blood cx pending and Bronch washings cx pending. * ID consult on board * Day #3 of antimicrobial therapy. Plan Vancomycin * Trough level of 13.8 mcg/mL is slightly subtherapeutic * Increase Vanc to 1750 mg IV every 12 hours * Goal trough level for pulmonary infx: 15 to 20 mcg/mL, C/S pending * Will consider re-evaluating a trough level in a few days if appropriate. Continue Zosyn 3.375gm IV q8h, extended 4-hr infusion Pharmacy will continue to follow and will adjust dose/frequency as necessary. Thank you.
--- NOTE | 2017-12-18 11:49 | Pulmonology Progress Note ---
Pulmonary Progress Note Date of Service Dec 18, 2017. Attending Dr. Vargas Subjective Patient seen and examined at bedside. Continues with a cough which is worse at night and when supine. No chest pain or tightness. Denies sore throat. Chronic hoarseness. No fever or chills. No hemoptysis. Objective GENERAL : No acute distress. No use of accessory muscles. Voice is hoarse but patient states that this is usual for him EYES: No icterus, gaze conjugate NOSE: No evidence of epistaxis. Nasal cannula in place MOUTH: No lesions or candidiasis NECK: Supple LUNGS: Persistent bibasilar rhonchi. Wet cough but no significant sputum production. Some very mild expiratory wheezes in the [place]. Decreased breath sounds HEART: Regular, rate controlled ABDOMEN: Soft, NT, ND, BS Present EXTREMITIES: No LE edema, pedal pulses intact NEURO: A&OX3 Assessment & Plan ACUTE ON CHRONIC BRONCHITIS * Acute flare * Patient currently on Zosyn and vancomycin * Bronchoscopy 12/17/[address] Alamo. Results pending * Concern for aspiration pneumonia versus aspiration pneumonitis * Infectious disease also following -appreciate Dr. Nguyen's input COPD EXACERBATION * Chronic steroid use at home 20 mg of prednisone daily -currently inpatient doses 40 mg p.o. twice daily * Continue Symbicort, Spiriva, levalbuterol/ipratropium nebs * Continue supplemental O2 support CHRONIC COUGH * Most likely multifactorial * Recent bronchoscopy with organic matter raising question of aspiration. * Irritable bowel disease on mesalamine * Chronic bronchitis * History of tobacco abuse * Continue cough suppressant with Tessalon Perles at bedtime. Will also add some Hycodan syrup at bedtime * Await bronchoscopy results DVT PROPHYLAXIS * Continue heparin 5000 units subcutaneously every 8 hours * Ambulate as tolerated Thank you for including us in the care of this patient. We will continue to await bronchoscopy results. Data Medications: Current Inpatient Medications Medications (Trade) Dose Ordered Sig/Jeffery Route Start Time Stop Time Status Last Admin Dose Admin Acetaminophen (Tylenol Tab) 650 mg Q4H PRN PO 12/13/17 18:45 01/12/18 18:44 Polyethylene (Miralax Powder Packet) 17 gm DAILY PRN PO 12/13/17 18:45 01/12/18 18:44 Ondansetron HCl (Zofran Inj) 4 mg Q6H PRN IV 12/13/17 18:45 01/12/18 18:44 Guaifenesin (Mucinex Contr Rel Tab) 1,200 mg Q12 PO 12/13/17 21:00 01/12/18 20:59 12/18/17 08:29 1,200 MG Albuterol Sulfate (Ventolin 0.083% 2.5MG/3ML Neb) 2.5 mg Q4 PRN INH 12/13/17 19:30 01/12/18 19:29 Benzonatate (Tessalon Perles Cap) 100 mg TID PRN PO 12/13/17 19:30 01/12/18 19:29 12/17/17 21:59 100 MG Budesonide/ Formoterol Fumarate (Symbicort 160/ 4.5 Inh) 2 puffs BID INH 12/13/17 21:00 01/12/18 20:59 12/18/17 08:29 2 PUFFS Cholecalciferol (Vitamin D Tab) 1,000 inter.unit QAM PO 12/14/17 09:00 01/13/18 08:59 12/18/17 08:30 1,000 INTER.UNIT Colestipol HCl (Colestid Tab) 1 gm BID PO 12/13/17 21:00 01/12/18 20:59 12/18/17 08:32 1 GM Cyanocobalamin (Vitamin B-12 Tab) 100 mcg QAM PO 12/14/17 09:00 01/13/18 08:59 12/18/17 08:32 100 MCG Dornase Robin (Pulmozyme Inhalation Soln 2.5ml Amp) 2.5 ml BIDR INH 12/14/17 08:00 01/13/18 07:59 12/18/17 07:08 2.5 ML Codeine Phosphate/ Guaifenesin (Robitussin-AC Sugar Free Syrup) 5 ml TID PRN PO 12/13/17 19:30 01/12/18 19:29 12/18/17 00:21 5 ML Levothyroxine Sodium (Synthroid Tab) 88 mcg DAILYBB PO 12/14/17 06:00 01/13/18 05:59 12/18/17 05:38 88 MCG Losartan Potassium (coZAAR TAB) 25 mg DAILY PO 12/14/17 09:00 01/13/18 08:59 12/18/17 08:31 25 MG Multivitamins (Multivitamin Tab) 1 tab QAM PO 12/14/17 09:00 01/13/18 08:59 12/18/17 08:31 1 TAB Spironolactone (Aldactone Tab) 25 mg QAM PO 12/14/17 09:00 01/13/18 08:59 12/18/17 08:32 25 MG Tiotropium Barker (Spiriva Handihaler Inhaler) 1 puff QAM INH 12/14/17 09:00 01/13/18 08:59 12/18/17 08:28 1 PUFF Vitamin B Complex/ Vit C/Folic Acid (Nephrocaps) 1 cap QAM PO 12/14/17 09:00 01/13/18 08:59 12/18/17 08:30 1 CAP Loperamide HCl (Imodium Cap) 2 mg BID PO 12/13/17 21:00 01/12/18 20:59 12/18/17 08:31 2 MG Ipratropium Barker (Atrovent 0.02% 0.5MG/2.5ML Neb) 0.5 mg Q6R INH 12/13/17 21:00 01/12/18 20:59 12/18/17 07:08 0.5 MG Levalbuterol (Xopenex 1.25MG/ 0.5ML Neb) 1.25 mg Q6R INH 12/13/17 21:00 01/12/18 20:59 12/18/17 07:08 1.25 MG Ipratropium Barker (Atrovent 0.02% 0.5MG/2.5ML Neb) 0.5 mg Q2H PRN INH 12/13/17 21:00 01/12/18 20:59 12/17/17 12:40 0.5 MG Levalbuterol (Xopenex 1.25MG/ 0.5ML Neb) 1.25 mg Q2H PRN INH 12/13/17 21:00 01/12/18 20:59 12/17/17 12:41 1.25 MG Mesalamine (Apriso) 1.5 gm QAM PO 12/14/17 09:00 01/13/18 08:59 12/18/17 08:33 1.5 GM Doxepin HCl (Silenor) 3 mg HS PO 12/13/17 21:00 01/12/18 20:59 12/17/17 21:02 3 MG Torsemide (Demadex Tab) 20 mg DAILY PO 12/15/17 09:00 01/14/18 08:59 12/18/17 08:31 20 MG Heparin Sodium (Porcine) (Heparin Sq 5000 Unit/0.5ml) 5,000 unit Q8 SQ 12/15/17 22:00 01/14/18 21:59 Future hold 12/18/17 05:41 5,000 UNIT Miscellaneous Information (Consult) 1 ea UD PRN N/A 12/16/17 09:15 01/15/18 09:14 Piperacillin Sod/ Tazobactam Sod 3.375 gm/Dextrose 115 ml @ 28.75 mls/ hr Q8H IV 12/16/17 16:00 12/23/17 15:59 12/18/17 07:48 28.75 MLS/HR Miscellaneous Information (Consult) 1 ea UD PRN N/A 12/16/17 09:15 01/15/18 09:14 Prednisone (PredniSONE TAB) 40 mg BID PO 12/17/17 09:00 01/12/18 19:40 12/18/17 08:30 40 MG Vancomycin HCl 1750 mg/Sodium Chloride 535 ml @ 200 mls/hr Q12H IV 12/18/17 20:00 12/23/17 19:59 Vital Signs: Date Time Temp Pulse Resp B/P (MAP) Pulse Ox O2 Delivery O2 Flow Rate FiO2 12/18/17 08:02 36.3 75 18 135/71 (92) 92 Nasal Cannula 2.0 12/18/17 07:30 Nasal Cannula 2.0 12/18/17 07:11 70 20 96 Nasal Cannula 2.0 12/18/17 03:50 36.9 85 24 121/68 (85) 94 Nasal Cannula 2.0 12/18/17 01:40 80 22 96 Nasal Cannula 2.0 12/17/17 22:50 36.5 78 24 118/60 (79) 92 Nasal Cannula 2.0 12/17/17 20:11 86 22 96 Nasal Cannula 3.0 12/17/17 19:25 Nasal Cannula 3.0 12/17/17 15:41 36.5 93 18 109/64 (79) 93 Nasal Cannula 3.0 12/17/17 15:10 93 Nasal Cannula 3.0 12/17/17 14:16 80 18 96 Nasal Cannula 3.0 12/17/17 12:42 94 20 97 Nasal Cannula 4.0 Laboratory Results: Last 24 Hours Test 12/18/17 09:22 White Blood Count 14.30 K/uL Red Blood Count 4.18 M/uL Hemoglobin 12.9 g/dL Hematocrit 39.6 % Mean Corpuscular Volume 94.7 fL Mean Corpuscular Hemoglobin 30.9 pg Mean Corpuscular Hemoglobin Concent 32.6 g/dl RDW Standard Deviation 56.2 fL RDW Coefficient of Variation 16.2 % Platelet Count 286 K/uL Mean Platelet Volume 10.8 fL Sodium Level 135 mmol/L Potassium Level 3.8 mmol/L Chloride Level 100 mmol/L Carbon Dioxide Level 25 mmol/L Anion Gap 9.0 mmol/L Blood Urea Nitrogen 21 mg/dl Creatinine 1.19 mg/dl Est Creatinine Clear Calc Drug Dose 76.4 ml/min Estimated GFR () 72.8 Estimated GFR (Non- 62.8 BUN/Creatinine Ratio 17.4 Random Glucose 242 mg/dl Calcium Level 8.8 mg/dl Vancomycin Level Trough 13.8 mcg/ml
--- NOTE | 2017-12-18 14:47 | Progress Note ---
Subjective Date of Service: Dec 18, 2017. Subjective Pt evaluation today including: conversation w/ patient, conversation w/ family , physical exam, chart review, lab review pt seen in followup, doing better. had increased cough yesterday post bronch but now better. no f/c. tolerating abx. repeat blood cultures negative, initial with lactobacillus. bronch cultures pending, so far nml jennifer only. no o2 on my exam. denies f/c. no cp. no hemoptysis. remaining ros reviewed and are negative. Problem List Medical Problems: (1) Acute bronchitis Status: Acute (2) COPD exacerbation Status: Acute (3) COPD exacerbation Status: Acute (4) COPD exacerbation Status: Acute (5) Failure of outpatient treatment Status: Acute (6) Lactic acidosis Status: Acute (7) Lower extremity edema Status: Acute (8) Mucus plugging of bronchi Status: Acute (9) Sepsis Status: Acute (10) SOB (shortness of breath) Status: Acute (11) SOB (shortness of breath) Status: Acute Objective Vital Signs Date Time Temp Pulse Resp B/P (MAP) Pulse Ox O2 Delivery O2 Flow Rate FiO2 12/18/17 14:01 83 20 92 Room Air 12/18/17 08:02 36.3 75 18 135/71 (92) 92 Nasal Cannula 2.0 12/18/17 07:30 Nasal Cannula 2.0 12/18/17 07:11 70 20 96 Nasal Cannula 2.0 12/18/17 03:50 36.9 85 24 121/68 (85) 94 Nasal Cannula 2.0 12/18/17 01:40 80 22 96 Nasal Cannula 2.0 12/17/17 22:50 36.5 78 24 118/60 (79) 92 Nasal Cannula 2.0 12/17/17 20:11 86 22 96 Nasal Cannula 3.0 12/17/17 19:25 Nasal Cannula 3.0 12/17/17 15:41 36.5 93 18 109/64 (79) 93 Nasal Cannula 3.0 12/17/17 15:10 93 Nasal Cannula 3.0 Physical Exam General Appearance: WD/WN, no apparent distress Eyes: normal inspection, EOMI Neck: supple Respiratory/Chest: + rhonchi, + wheezing Cardiovascular: regular rate, rhythm, no edema Abdomen: non tender, soft Extremities: non-tender, no pedal edema Neurologic/Psychiatric: alert, oriented x 3 Skin: normal color Laboratory Results Item Value Date Time Gram Stain - Final Resulted 12/17/17 0855 Bronchial Washings Left Lower Lobe Blood Culture - Preliminary Resulted 12/16/17 1636 Blood NO GROWTH TO DATE. Blood Culture - Preliminary Resulted 12/16/17 1630 Blood NO GROWTH TO DATE. Gram Stain - Final Complete 12/14/17 0218 Sputum Expectorated Sputum Blood Culture - Preliminary Resulted 12/13/17 2053 Blood Lactobacillus Species Last 24 Hours Test 12/18/17 09:22 White Blood Count 14.30 K/uL Red Blood Count 4.18 M/uL Hemoglobin 12.9 g/dL Hematocrit 39.6 % Mean Corpuscular Volume 94.7 fL Mean Corpuscular Hemoglobin 30.9 pg Mean Corpuscular Hemoglobin Concent 32.6 g/dl RDW Standard Deviation 56.2 fL RDW Coefficient of Variation 16.2 % Platelet Count 286 K/uL Mean Platelet Volume 10.8 fL Sodium Level 135 mmol/L Potassium Level 3.8 mmol/L Chloride Level 100 mmol/L Carbon Dioxide Level 25 mmol/L Anion Gap 9.0 mmol/L Blood Urea Nitrogen 21 mg/dl Creatinine 1.19 mg/dl Est Creatinine Clear Calc Drug Dose 76.4 ml/min Estimated GFR () 72.8 Estimated GFR (Non- 62.8 BUN/Creatinine Ratio 17.4 Random Glucose 242 mg/dl Calcium Level 8.8 mg/dl Vancomycin Level Trough 13.8 mcg/ml Assessment and Plan (1) Pneumonia Assessment & Plan: suspect lactobacillus contaminant, repeat cutlures negative , will stop vanco. await bronch culture results. Continued [facility] stay due to: multiple IV medications needed Discharge planning: home
--- NOTE | 2017-12-18 16:24 | Hospitalist Progress Note ---
Hospitalist Progress Note Date of Service Dec 18, 2017. Subjective Pt evaluation today including: conversation w/ patient Had a hard time sleeping last night, was coughing quite a bit. He ambulated around the halls twice today without oxygen and felt some shortness of breath, but improved from prior to admission. No chest pain, remains afebrile All Other Systems: Reviewed and Negative Objective Vital Signs Date Time Temp Pulse Resp B/P (MAP) Pulse Ox O2 Delivery O2 Flow Rate FiO2 12/18/17 14:01 83 20 92 Room Air 12/18/17 08:02 36.3 75 18 135/71 (92) 92 Nasal Cannula 2.0 12/18/17 07:30 Nasal Cannula 2.0 12/18/17 07:11 70 20 96 Nasal Cannula 2.0 12/18/17 03:50 36.9 85 24 121/68 (85) 94 Nasal Cannula 2.0 12/18/17 01:40 80 22 96 Nasal Cannula 2.0 12/17/17 22:50 36.5 78 24 118/60 (79) 92 Nasal Cannula 2.0 12/17/17 20:11 86 22 96 Nasal Cannula 3.0 12/17/17 19:25 Nasal Cannula 3.0 Physical Exam General Appearance: WD/WN, + mild distress (Mild tachypnea) Eyes: normal inspection, sclerae normal ENT: hearing grossly normal Neck: supple, no adenopathy, trachea midline Respiratory/Chest: no accessory muscle use, + rhonchi (Diffuse on the right and improved on the left), + wheezing (Diffuse expiratory but is improved on the left compared to yesterday) Cardiovascular: regular rate, rhythm, no edema, no murmur Abdomen: normal bowel sounds, non tender, soft Extremities: no pedal edema, no calf tenderness Neurologic/Psychiatric: alert, normal mood/affect, oriented x 3 Skin: normal color, warm/dry, no rash Laboratory Results Last 24 Hours Test 12/18/17 09:22 White Blood Count 14.30 K/uL Red Blood Count 4.18 M/uL Hemoglobin 12.9 g/dL Hematocrit 39.6 % Mean Corpuscular Volume 94.7 fL Mean Corpuscular Hemoglobin 30.9 pg Mean Corpuscular Hemoglobin Concent 32.6 g/dl RDW Standard Deviation 56.2 fL RDW Coefficient of Variation 16.2 % Platelet Count 286 K/uL Mean Platelet Volume 10.8 fL Sodium Level 135 mmol/L Potassium Level 3.8 mmol/L Chloride Level 100 mmol/L Carbon Dioxide Level 25 mmol/L Anion Gap 9.0 mmol/L Blood Urea Nitrogen 21 mg/dl Creatinine 1.19 mg/dl Est Creatinine Clear Calc Drug Dose 76.4 ml/min Estimated GFR () 72.8 Estimated GFR (Non- 62.8 BUN/Creatinine Ratio 17.4 Random Glucose 242 mg/dl Calcium Level 8.8 mg/dl Vancomycin Level Trough 13.8 mcg/ml Assessment and Plan This patient is a 67 y/o male with a history of COPD, recurrent pulmonary infections, tracheitis, ADELAIDA on 2 LNC nocturnally, chronic diastolic CHF, Crohn' s disease, HLD, HTN, hypothyroidism, candidiasis, chronic steroid use and insomnia who presents with worsening onset of shortness of breath and sputum production, found to have bilateral lower lobe pneumonia and acute bronchitis, with acute hypoxemic respiratory failure. Has a history of numerous hospitalizations in the last year i.e. greater than 7. Acute bronchitis/COPD Exacerbation/acute on chronic hypoxemic respiratory failure/recurrent pneumonia with Haemophilus influenzae-is improved since admission on IV antibiotics and increased dose of steroids. Has had numerous inpatient and outpatient bronchoscopies, tracheal biopsy, right heart cath, imaging studies, all to look for source of his recurrent infections. At this point, pulmonology suspecting recurrent aspiration pneumonia as most likely possibility. Leukocytosis improved with decreased dose of steroids, remains afebrile Growing heavy growth of Haemophilus influenzae beta-lactamase negative out of sputum culture which is likely to be a true pathogen Blood cultures 1/2 bottles growing lactobacillus-ID thinks this is likely a contaminant BAL cultures light normal jennifer, not final yet -ID discontinued the vancomycin -Continue Zosyn and await bronchoscopy culture results -Appreciate infectious disease consultation -Follow-up repeat blood cultures -Appreciate pulmonary consultation-bronchoscopy with extensive secretions in the nasal passages down into the airways, EDAC of the right and left mainstem bronchi -Continue supplemental O2 to keep pulse ox greater than 92% -Continue prednisone and taper down as tolerated-we will continue 40 mg twice daily for now -Continue bronchodilators -Continue Symbicort, Spiriva -Continue dornase -Continue Mucinex -Continue antitussives-increase benzonatate 200 mg 3 times daily, trial of Hycodan rather than guaifenesin with codeine Chronic diastolic CHF--stable, not volume overloaded -Continue torsemide, spironolactone Crohn's--stable, actually improved after stopping Imuran 6 months ago -Continue mesalamine Hyperlipidemia - Continue Colestipol 1 gm PO BID HTN--stable, blood pressure is controlled -continue losartan, Aldactone, and torsemide Hypothyroidism-last TSH slightly low in 10/2017 and again here at 0.278 - Continue home dose of Synthroid 88 mcg PO qPM Insomnia - Continue doxepin ADELAIDA-on nocturnal O2-stable -Continue O2 nocturnally Prophylaxis-heparin SQ Disposition-to home when medically stable perhaps tomorrow
[2017-12-18] MEDS ORDERED: BENZONATATE 100MG CAP PO PRN (16:30)
[2017-12-18] MEDS ORDERED: HYDROCODONE/HOMATROPINE SYRUP 5MG/1.5MG 5ML UDP PO PRN (16:30)
[2017-12-18] MEDS ORDERED: VANCOMYCIN IV 1,750 MG in SODIUM CHLORIDE 0.9% 500ML 500 ML IV SCH (20:00)
[2017-12-18] MEDS: DOXEPIN HCL 6 MG PO SCH (20:51)
[2017-12-19] MEDS: PIPERACILL/TAZOBAC IV 3.375 GM in DEXTROSE 5% 100ML 100 ML IV SCH ×2 (00:30→08:17)
[2017-12-19 01:54] VITALS: PULSE 78; O2SAT 94
[2017-12-19] MEDS: LEVALBUTEROL 1.25MG/0.5ML NEB INH SCH ×2 (01:54→07:30)
[2017-12-19] MEDS: IPRATROPIUM BROMIDE NEB SOLN 0.02% 2.5 ML VIAL INH SCH ×2 (01:54→07:30)
[2017-12-19] MEDS: LEVOTHYROXINE 88 MCG TAB PO SCH (05:59)
[2017-12-19] MEDS: HEPARIN SOD 5000 UNIT/0.5 ML CARP SQ SCH (05:59)
[2017-12-19 07:30] VITALS: PULSE 70; O2SAT 96
[2017-12-19] MEDS: DORNASE ALFA 2.5 ML AMP INH SCH (07:30)
[2017-12-19 07:41] VITALS: BP 118/70; PULSE 70; TEMP 36.6; O2SAT 90
[2017-12-19 07:57] VITALS: O2SAT 90
[2017-12-19] MEDS: BUDESONIDE/FORMOTEROL FUMARATE 160/4.5 60 PUFFS/INHALER INH SCH (08:20)
[2017-12-19] MEDS: GUAIFENESIN 600 MG TABCR PO SCH (08:21)
[2017-12-19] MEDS: SPIRONOLACTONE 25 MG TAB PO SCH (08:23)
[2017-12-19] MEDS: NEPHROCAPS PO SCH (08:23)
[2017-12-19] MEDS: CYANOCOBALAMIN 100 MCG TAB (VIT B-12) PO SCH (08:23)
[2017-12-19] MEDS: CHOLECALCIFEROL 1000 INTER.UNIT TAB PO SCH (08:23)
[2017-12-19] MEDS: COLESTIPOL HCL 1 GM TAB PO SCH (08:24)
[2017-12-19] MEDS: LOSARTAN POTASSIUM 25 MG TAB PO SCH (08:24)
[2017-12-19] MEDS: TORSEMIDE 20 MG TAB PO SCH (08:24)
[2017-12-19] MEDS: MESALAMINE 0.375 GM PO SCH (08:25)
[2017-12-19] MEDS: LOPERAMIDE HCL 2 MG CAP PO SCH (08:25)
[2017-12-19] MEDS: MULTIVITAMIN TAB PO SCH (08:25)
[2017-12-19] MEDS: TIOTROPIUM BROMIDE 5 PUFF/90 MCG INH INH SCH (09:11)
[2017-12-19] MEDS ORDERED: GUAISYP8 PO (11:29)
[2017-12-19] MEDS ORDERED: BENZ100C84 PO (11:29)
[2017-12-19] MEDS ORDERED: PRED20TA PO (11:29)
[2017-12-19] MEDS ORDERED: AMOX875T PO (11:29)
[2017-12-19] MEDS ORDERED: GFNSR600 PO (11:29)
--- NOTE | 2017-12-19 11:34 | Discharge Instructions ---
Discharge Instructions Date of Service Dec 19, 2017. Admission Reason for Admission: Copd Exacerbation Discharge Discharge Diagnosis / Problem: Pneumonia, COPD exacerbation Discharge Goals Goal(s): Improve disease control, Diagnostic testing, Therapeutic intervention Activity Recommendations Activity Limitations: as noted below Exercise/Sports Limitations: gradually increase as tolerated Shower/Bathe: no limitations . Instructions / Follow-Up Instructions / Follow-Up You were admitted with pneumonia and a COPD exacerbation. You underwent bronchoscopy and had some improvement. You are growing a bacteria out of your lungs called Haemophilus influenzae. Please finish out the course of Augmentin and prednisone taper as prescribed. Follow-up with Dr. Alamo as scheduled and with your PCP this Sunday. Current Hospital Diet Patient's current hospital diet: AHA Diet (Heart Healthy) Discharge Diet Recommended Diet: AHA Diet (Heart Healthy) Procedures Procedures Performed: Bronchoscopy CT chest Chest x-ray Pending Studies Studies pending at discharge: yes List of pending studies: Final culture result from 12/16 Fungal culture from bronchoscopy Medical Emergencies . Who to Call and When: Medical Emergencies: If at any time you feel your situation is an emergency, please call 911 immediately. . Non-Emergent Contact Non-Emergency issues call your: Primary Care Provider, Braider Setter Call Non-Emergent contact if: temperature is above 100.5, you have any medication questions You have worsening shortness of breath or for any other concerns . . "Provider Documentation" section prepared by Theresa Perea. . [place] Drug Monitoring Program Search Results: patient reviewed within database, no issues identified
--- NOTE | 2017-12-19 11:41 | Discharge Summary ---
Discharge Summary Date of Service Dec 19, 2017. Discharge Summary Admission Date: Dec 13, 2017 at 18:58 Discharge Date: Dec 19, 2017 Discharge Disposition: Home Principal Diagnosis: Haemophilus influenzae pneumonia, COPD exacerbation Problems/Secondary Diagnoses: Acute on chronic hypoxic respiratory failure Recurrent pulmonary infections Tracheitis ADELAIDA on 2 LNC nocturnally Chronic diastolic CHF Crohn's disease HLD HTN hypothyroidism History of candidiasis Chronic steroid use Insomnia Bacteremia-contaminant with lactobacillus Procedures: Bronchoscopy Chest CT Chest x-ray Consultations: Pulmonology Infectious disease Medication Reconciliation New Medications: Amoxicillin & Pot Clavulanate (Augmentin 875-125 mg) 1 Tab Tab 875 MG PO BID, #8 TAB Guaifenesin Ext Rel (Mucinex Ext Rel) 600 Mg Tabcr 1200 MG PO Q12 for 30 Days OTC Changed Medications: Benzonatate (Tessalon Perles) 100 Mg Cap 2 CAP PO TID PRN for Cough for 10 Days, #60 CAP (Changed from: 1 CAP; 30) Prednisone (Prednisone) 20 Mg Tab 40 MG PO BID, #30 TAB (Changed from: 20 MG; QAM) x 1 day then take 60 mg daily x 3 days then 40 mg daily x 3 days then back to your usual 20mg daily Continued Medications: Albuterol Sulf (Proventil 0.083% 2.5MG/3ML) 2.5 Mg/3 Ml Nebu 2.5 MG INH Q4 PRN for Shortness of Breath Budesonide/Formoterol Fumarate (Symbicort 160/4.5 Inhaler) 120 Puffs/ Aero 2 PUFF INH BID, #30 Cholecalciferol (Vitamin D3) 1,000 Unit Tab 1000 UNITS PO QAM for 90 Days, TAB 3 Refills Colestipol Hcl (Colestipol Hcl) 1 Gm Tab 1 GM PO BID Cyanocobalamin (Vitamin B-12) 100 Mcg Tab 100 MCG PO QAM, TAB Dornase Robin (Pulmozyme) 1 Mg/Ml Luz Maria 1 INHA INH BID Doxepin Hcl (Sleep) (Silenor) 3 Mg Tab 3 MG PO HS Guaifenesin-Codeine (Guaiatussin Ac) 1 Syp Syp 5 ML PO TID PRN for Cough for 7 Days, #1 BTL (This prescription has been renewed ) Home O2 Therapy (Oxygen) Gas 2 LITERS NA HS, BTL Homeopathic Products (Sleep Medicine) 1 Tab Tab 1 TAB PO HS Ipratropium-Albuterol (Duoneb) 3 Ml Nebu 1 TREATMENT INH TID, INHA Levothyroxine Sodium (Synthroid) 88 Mcg Tab 88 MCG PO QAM, #90 Loperamide Hcl (Loperamide Hcl) 2 Mg Tab 2 MG PO BID Losartan Potassium (Cozaar) 25 Mg Tab 25 MG PO DAILY, TAB Mesalamine (Apriso) 0.375 Gm Cap 4 CAP PO QAM Multivitamin (Multivitamin) Tab 1 TAB PO QAM, TAB Spironolactone (Aldactone) 25 Mg Tab 25 MG PO QAM, TAB Tiotropium [place] (Spiriva Handihaler) 5 Puff/90 Mcg Aerp 1 PUFF INH QAM Torsemide (Torsemide) 20 Mg Tab 20 MG PEG DAILY Vitamin B Cmplx/Vitc/Folic Ac (Nephrocaps) Cap 1 CAP PO QAM, CAP Discharge Exam Patient feeling slightly improved and is ready to go home. Still dyspnea on exertion, still significant cough with lying flat, has to sleep sitting up which is chronic for him. Afebrile. Physical Exam General Appearance: WD/WN, no distress Eyes: normal inspection, sclerae normal ENT: hearing grossly normal Neck: supple, no adenopathy, trachea midline Respiratory/Chest: no accessory muscle use, + rhonchi (Diffuse bilaterally), + wheezing (Diffuse expiratory but is improved on the left compared to yesterday) Cardiovascular: regular rate, rhythm, no edema, no murmur Abdomen: normal bowel sounds, non tender, soft Extremities: Trace edema legs bilaterally, no calf tenderness Neurologic/Psychiatric: alert, normal mood/affect, oriented x 3 Skin: normal color, warm/dry, no rash Review of Systems: Constitutional: No fever Eyes: No problem reported ENT: No problem reported Respiratory: + cough, + dyspnea on exertion Cardiovascular: No problem reported Abdomen: No problem reported Musculoskeletal: No problem reported Genitourinary - Male: No problem reported Neurologic: No problem reported Psychiatric: No problem reported Hematologic / Lymphatic: No problem reported Integumentary: No problem reported Hospital Course This patient is a 67 y/o male with a history of COPD, recurrent pulmonary infections, tracheitis, ADELAIDA on 2 LNC nocturnally, chronic diastolic CHF, Crohn' s disease, HLD, HTN, hypothyroidism, candidiasis, chronic steroid use and insomnia who presents with worsening onset of shortness of breath and sputum production, found to have bilateral lower lobe pneumonia and acute bronchitis, with acute hypoxemic respiratory failure. Has a history of numerous hospitalizations in the last year i.e. greater than 7. Acute bronchitis/COPD Exacerbation/acute on chronic hypoxemic respiratory failure/recurrent pneumonia with Haemophilus influenzae-is improved since admission on IV antibiotics and increased dose of steroids. Has had numerous inpatient and outpatient bronchoscopies, tracheal biopsy, right heart cath, imaging studies, all to look for source of his recurrent infections. At this point, pulmonology suspecting recurrent aspiration pneumonia as most likely possibility. Leukocytosis improved with decreased dose of steroids, remains afebrile Growing heavy growth of Haemophilus influenzae beta-lactamase negative out of sputum culture which is likely to be a true pathogen Blood cultures 1/2 bottles growing lactobacillus-ID thinks this is likely a contaminant BAL cultures light normal jennifer, not final yet -ID discontinued the vancomycin -Continue Zosyn and await bronchoscopy culture results -Appreciate infectious disease consultation -Follow-up repeat blood cultures -Appreciate pulmonary consultation-bronchoscopy with extensive secretions in the nasal passages down into the airways, EDAC of the right and left mainstem bronchi -Continue supplemental O2 to keep pulse ox greater than 92% -Continue prednisone and taper down as tolerated-we will continue 40 mg twice daily for now -Continue bronchodilators -Continue Symbicort, Spiriva -Continue dornase -Continue Mucinex -Continue antitussives-increase benzonatate 200 mg 3 times daily, trial of Hycodan rather than guaifenesin with codeine Chronic diastolic CHF--stable, not volume overloaded -Continue torsemide, spironolactone Crohn's--stable, actually improved after stopping Imuran 6 months ago -Continue mesalamine Hyperlipidemia - Continue Colestipol 1 gm PO BID HTN--stable, blood pressure is controlled -continue losartan, Aldactone, and torsemide Hypothyroidism-last TSH slightly low in 10/2017 and again here at 0.278 - Continue home dose of Synthroid 88 mcg PO qPM Insomnia - Continue doxepin ADELAIDA-on nocturnal O2-stable -Continue O2 nocturnally Prophylaxis-heparin SQ Disposition-to home when medically stable perhaps tomorrow Total Time Spent: Greater than 30 minutes This includes examination of the patient, discharge planning, medication reconciliation, and communication with other providers. Discharge Instructions Please refer to the electronic Patient Visit Report (Discharge Instructions) for additional information. Follow-Up With PCP in 2 days With pulmonology as scheduled in 1-2 weeks Additional Copies To Jocelyne Cook M.D.; Alexander Alamo MD
[2017-12-19 13:11] VITALS: BP 118/70; PULSE 70; TEMP 36.6; O2SAT 90
[2017-12-20 13:29] LABS: HERPES SIMPLEX VIRUS CULT NOT ISOLATED (NOT ISOLATED)
== END 2017-12-19 13:37 | disposition home or self-care (01) | DRG 166 ==
LOC: C.EDB 15:31 → C.MSW 18:58 → EDBEDREQ 19:03 → ENRESERV 19:47
PROVIDERS: ADMIT Family Medicine; ATTEND Family Medicine
PROC: 0B9J8ZX Drainage of Left Lower Lung Lobe, Via Natural or Artificial Opening Endoscopic, Diagnostic (ICD-10-PCS; principal; 2017-12-17 08:00)
DX: J14 Pneumonia due to Hemophilus influenzae (principal); J96.20 Acute and chronic respiratory failure, unspecified whether with hypoxia or hypercapnia; J44.1 Chronic obstructive pulmonary disease with (acute) exacerbation; K50.90 Crohn's disease, unspecified, without complications; J44.0 Chronic obstructive pulmonary disease with (acute) lower respiratory infection; I50.32 Chronic diastolic (congestive) heart failure; E87.1 Hypo-osmolality and hyponatremia; I11.0 Hypertensive heart disease with heart failure; Z87.891 Personal history of nicotine dependence; G47.33 Obstructive sleep apnea (adult) (pediatric); G47.00 Insomnia, unspecified; J04.10 Acute tracheitis without obstruction; E78.5 Hyperlipidemia, unspecified; E03.9 Hypothyroidism, unspecified; Z79.52 Long term (current) use of systemic steroids; Z99.81 Dependence on supplemental oxygen

== ENCOUNTER 2018-01-28 12:03 | Emergency (ER) | payer BC ==
[~2018-01-28] VITALS: Ht 185.4 cm; Wt 102.0 kg
[~2018-01-28 12:03] MED LIST changes: -CZR50 PO; +DMD20 PEG; -FRS/40 PO; +GFNSR600 PO; +LOSA1TAB PO; -TADA10TA PO
[2018-01-28 12:13] VITALS: TEMP 36.6; Ht 185.4 cm; Wt 102.0 kg
[2018-01-28] MEDS ORDERED: LIDOCAINE/EPINEPHRINE 1% 20 ML VIAL INFIL STA (12:37)
[2018-01-28] MEDS ORDERED: CEPH500C PO (13:13)
--- NOTE | 2018-01-28 13:14 | EMERGENCY ROOM VISIT NOTE ---
ED Visit Note First contact with patient: 12:22 CHIEF COMPLAINT: Left leg laceration HISTORY OF PRESENT ILLNESS: This 67-year-old male patient presents to the emergency department, ambulatory, approximately 1 hour after cutting the left anterior alejo. The patient was mowing the lawn, got his leg caught between a lawnmower and a tree stump. The stump caused a laceration to the alejo. The patient was wearing jeans and the laceration occurred through the jeans, but did not tear the jeans. The bleeding has stopped. Denies weakness or numbness of the left lower extremity. The patient rates the pain as sharp and 1/10. The patient denies any other injuries. The patient's Tetanus shot is up to date. REVIEW OF SYSTEMS: A 6 system review of systems was completed with positives and pertinent negatives listed in the HPI. ALLERGIES: None PMH: Hypothyroidism, hypertension, COPD SOCIAL HISTORY: The patient lives locally with family. He denies drug, alcohol , tobacco use. PHYSICAL EXAM: Vital Signs: Reviewed Nurse's notes, vital signs stable. GENERAL : This is a 67-year-old white male, in no acute distress, well-developed, well- nourished. SKIN: There is a 6 cm long laceration on the anterior aspect of the left alejo in the vertical plane. The edges gape apart with traction. There is no foreign material in the wound and it looks clean. There is no active bleeding. No deep structures such as tendons, bones, or significant blood vessels are seen in the base of the wound. Normal strength and movement of the left lower extremity. Capillary refill less than 2 seconds. Normal sensation to light and sharp touch. EMERGENCY DEPARTMENT COURSE: I examined the patient. Verbal consent was obtained to perform the procedure. The procedure was performed by the physician tv production assistant student under my direct supervision. Using sterile technique the wound was cleansed with Betadine. The area was sterilely draped. 8 ml of 1% lidocaine w with epinephrine as used to anesthetize the laceration on the left lower extremity. Once the patient was anesthetized, the wound was copiously irrigated under pressure with sterile saline. The wound was explored and was as described above. The laceration was repaired using 15 simple interrupted 4-0 nylon sutures with the wound edges being well approximated. The patient tolerated the procedure well. Hemostasis was achieved. The area was cleaned with sterile saline and dressed with bacitracin ointment and bandage. Due to the location and the patient's current treatment with steroids, he will be placed on a short, 1 week long course of Keflex. He was given his first dose here in the emergency department. The patient was discharged home in good condition. I attest that I have personally reviewed the patient's current medication list. Patient was found to have normal blood pressure on screening and does not require follow-up. Differential diagnosis includes laceration, contusion, fracture, sprain/strain, tendon or ligament injury, neurovascular compromise, foreign body, assault, and others DIAGNOSIS: Left lower extremity laceration The chart was completed utilizing [employer] Speech voice recognition software. Grammatical errors, random word insertions, pronoun errors, and incomplete sentences are an occasional consequence of this system due to software limitations, ambient noise, and hardware issues. Any formal questions or concerns about the content, text, or information contained within the body of this dictation should be directly addressed to the provider for clarification. Problem List Medical Problems: (1) Bronchitis Status: Resolved (2) Emphysema, unspecified Status: Resolved (3) Hypertension Status: Chronic (4) Pneumonia Status: Resolved Current/Historical Medications Scheduled Budesonide/Formoterol Fumarate (Symbicort 160/4.5 Inhaler), 2 PUFF INH BID Cephalexin Monohydrate (Keflex), 500 MG PO QID Cholecalciferol (Vitamin D3), 1,000 UNITS PO QAM Colestipol Hcl (Colestipol Hcl), 1 GM PO BID Cyanocobalamin (Vitamin B-12), 100 MCG PO QAM Dornase Robin (Pulmozyme), 1 INHA INH BID Doxepin Hcl (Sleep) (Silenor), 3 MG PO HS Guaifenesin Ext Rel (Mucinex Ext Rel), 1,200 MG PO Q12 Home O2 Therapy (Oxygen), 2 LITERS NA HS Homeopathic Products (Sleep Medicine), 1 TAB PO HS Ipratropium-Albuterol (Duoneb), 1 TREATMENT INH TID Levothyroxine Sodium (Synthroid), 88 MCG PO QAM Loperamide Hcl (Loperamide Hcl), 2 MG PO BID Losartan Potassium (Cozaar), 25 MG PO DAILY Mesalamine (Apriso), 4 CAP PO QAM Multivitamin (Multivitamin), 1 TAB PO QAM Prednisone (Prednisone), 20 MG PO DAILY Spironolactone (Aldactone), 25 MG PO QAM Tiotropium [place] (Spiriva Handihaler), 1 PUFF INH QAM Torsemide (Torsemide), 20 MG PEG DAILY Vitamin B Cmplx/Vitc/Folic Ac (Nephrocaps), 1 CAP PO QAM Scheduled PRN Albuterol Sulf (Proventil 0.083% 2.5MG/3ML), 2.5 MG INH Q4 PRN for Shortness of Breath Benzonatate (Tessalon Perles), 2 CAP PO TID PRN for Cough Guaifenesin-Codeine (Guaiatussin Ac), 5 ML PO TID PRN for Cough Allergies Coded Allergies: No Known Allergies (Verified , 01/28/18) Vital Signs Date Time Temp Pulse Resp B/P (MAP) Pulse Ox O2 Delivery O2 Flow Rate FiO2 01/28/18 13:27 89 20 127/83 99 01/28/18 12:13 36.6 88 20 147/96 97 Room Air Medications Administered Medications (Trade) Dose Ordered Sig/Jeffery Route Start Time Stop Time Status Last Admin Dose Admin Cephalexin Monohydrate (Keflex Cap) 500 mg NOW STAT PO 01/28/18 13:17 01/28/18 13:19 DC 01/28/18 13:27 500 MG Departure Information Impression Primary Impression: Laceration of left lower extremity Dispostion Home / Self-Care Condition GOOD Prescriptions Cephalexin Monohydrate (Keflex) 500 Mg Cap 500 MG PO QID for 7 Days, #28 CAP Prov: Shahana Cardenas, ANJALI 01/28/18 Patient Instructions ED Laceration Ext Sutr Stap Tape, [employer] Additional Instructions You have received 15 sutures on your left leg. These sutures are NOT dissolvable and WILL need to be removed by a health care provider in 10-14 days. You can return to the Emergency Department or contact your Primary Care Provider to have the sutures removed. Cephalexin(Keflex) 500mg: Take one pill four times daily for 7 days to prevent skin infection. All antibiotics can cause diarrhea. If this occurs and you feel worse or it does not resolve in 1-2 days follow up with your doctor or return to the Emergency Department as this could be signs of serious underlying problems. Any medication can cause an allergic reaction, stop the pills immediately and return to the ER for rash, hives, breathing difficulties, or swelling. Proper wound care is essential for adequate wound healing and infection prevention. You can shower and clean the wound with soap and water. Do not scour over the wound, pat dry with a towel. Do not submerse the wound (i.e. bathe or dish wash) until the sutures have been removed. You can use an antibiotic ointment with a dressing over the wound for the next 3-4 days. After this time you may leave the wound dry and open to the air. If crust develops over the wound you can use a Q-tip to apply a 1:1 peroxide:water solution to clean the wound. Look for signs of infection of the wound including: increased pain, swelling, foul discharge, streaking, or increased temperature. If any of these are noticed you should return to the Emergency Department for further assessment and treatment. As with any laceration you may have received nerve damage to the surrounding tissues. This damage may or may not be permanent. You should keep the area covered with sunscreen for the first 6 months to 1 year when at risk for exposure to help minimize scarring. You can also use scar reducing creams or Vitamin E oil to help minimize scarring. For pain control, you can use the following [id number] medicines (if >12 yo): Acetaminophen(Tylenol) may be used for fever or pain. Use 1000mg every six hours as needed. Avoid using more than 3000mg in a 24 hour period. Return to the emergency department if your symptoms worsen despite treatment course outlined above. Problem Qualifiers Primary Impression: Laceration of left lower extremity Encounter type: initial encounter Qualified Codes: S81.812A - Laceration without foreign body, left lower leg, initial encounter
[2018-01-28] MEDS ORDERED: CEPHALEXIN MONOHYDRATE 250 MG CAP PO STA (13:17)
[2018-01-28 13:27] VITALS: BP 127/83; PULSE 89; O2SAT 99
[2018-01-28] MEDS ORDERED: PRED20TA PO (13:33)
== END 2018-01-28 13:28 | disposition home or self-care (01) ==
LOC: C.EDB 12:04 → C.EDD 13:28
DX: S81.812A Laceration without foreign body, left lower leg, initial encounter (principal); W23.0XXA Caught, crushed, jammed, or pinched between moving objects, initial encounter; I10 Essential (primary) hypertension; J44.9 Chronic obstructive pulmonary disease, unspecified; Z79.52 Long term (current) use of systemic steroids; Z99.81 Dependence on supplemental oxygen; Z79.899 Other long term (current) drug therapy

== ENCOUNTER → 2018-04-23 | Outpatient (CLI) | payer BC ==
[~2018-04-23] MED LIST changes: +BENZ1CAP90 PO; -DMD20 PEG; +GUAI100S6 PO; +IPRA-64 INH; -IPRASOL4 INH; +SPIR25TA5 PO; -SPIR25TA89 PO; +TORS20TA3 PO
--- NOTE | 2018-04-24 05:47 | PAP/PSG TECHNICIAN REPORT ---
[facility] Process Engineering Manager Polysomnogram Report Study name: None Report date: 04/24/2018 Study date: 04/23/2018 Referring Physician: Blayne Fournier M.D. Name: CHARLES TORRES Interpreting Physician: Blayne Fournier M.D. Date of : 1950 Process Engineering Manager: Penny Mccormack [facility]. Sex: Male Age: 67 StudyType: PSG Weight: 227.2 lbs Height: 67 years, Height 5' 9" Neck Circum: BMI: 33.55 Medications: Asrido CP24, Aspirin 81 mg, Benzobatate 200 mg, Clotrimazole-Betamethasone 1-0.05%, Colestipol 1 gm, Guaifenesin AC 100-10 MG/5ML, Ipratropium-Albuterol 0.5-2.5 (3) MG/3ML, Levothyroxine Sodium 88 MCG, Loperamide 2mg, Multi VItamin, Nystatin 353869 units/ML, Prednisone 20 mg, Pro Air HFA 108 ( 90 Base), Pulmozyme 1 mg/ml, silenor 3 mg, Spiriva 18 MCG, Spironolactone, Symbicort 160-4.5 MCG/ACT, Torsemide 20 mg, Vitamin B Complex Vitamin D 61157 units Patient History 67 yr. old male here for a possible split night sleep study in room 8. Patient has a history of severe lung disease, COPD/bronchiectasis and tracheomalacia. He had a titration done but could not tolerate CPAP in 2012. He uses supplemental oxygen at night but unknowingly takes it off sometime during the night. ESS 11/24 Parameters Monitored NPSG: E1-M2, E2-M1, Fp1-M2, Fp2-M1, F3-M2, F4-M2, F4-M1, C3-M2, C4-M2, C4-M1, O1-M2, O2-M2, O2-M1, T3-M2, T4-M1, P3-M2, P4-M1, CHIN1, CHIN2, HR, EKG, Legs, PFLOW, SNOR, FLOW, CFLOW, Tidal Volume, THOR, ABDO, SpO2, PLTH, CPRESS, ETCO2 Wave, ETCO2, pH Sleep Architecture Sleep Stages Time at Lights Off 10:01:24 PM STAGES Time (min.) TST (%) Time at Lights On 5:33:24 AM Wake 72.5 -- Total Recording Time (TRT) 452.00 min. N1 49.5 13 Total Sleep Period (TSP) 437.5 min. N2 245.5 65 Total Sleep Time (TST) 379.5min. N3 40.5 11 Awake Time 72.5 min. REM 44.0 12 Wake after Sleep Onset 58.0 min. Sleep Efficiency (SE) 84 % Sleep Onset Latency (SHEBA) 14.5 min. Number of Stage 1 Shifts None Awakenings 32 Stage Changes 145 Number of REM periods 4 REM 44.0 12 REM Latency 119.0 min. NREM 335.5 88 Body Position Analysis Supine Right Left Side Prone Vertical Total Sleep Time (min.) 0.0 0.0 0.0 0.00 0.0 451.7 Total Sleep Time (%) 0% 0% 0% 0 0% 100% Total Sleep Time REM (min.) 0.0 0.0 0.0 None 0.0 44.0 Total Sleep Time NREM (min.) 0.0 0.0 0.0 None 0.0 335.5 Intermittent Wake (min.) 0.0 0.0 0.0 None 0.0 72.2 Total Sleep Period (%) 0% None None None None None Arousals Myoclonus (PLM) * Events Count Index Events Count Index Spontaneous 7 1 Events Awake (PLMW) 128 105.9 Respiratory 1 0.2 Events Asleep w/ Arousal (PLMA) 34 5.4 PLM 33 5 Events Asleep w/o Arousal (PLMS) 131 20.7 Snoring 16 3 Total Asleep 165 26.1 Total 57 9 Total 293 39 Respiratory Analysis * CA OA MA CH H RERA Total Count 2 0 0 0 6 0 8 Index 0.3 0.0 0.0 0 0.9 0 1.3 Mean Duration 15.7 0.0 0.0 0.00 28.5 0.0 25.3 Longest Duration 17.5 0.0 0.0 0.00 0.0 0.0 35.5 Respiratory Event Summary Total Supine ~Supine Right Left Prone REM NREM Apneas Count 2 N/A 2 N/A N/A N/A 0 2 Index 0.3 N/A 0 N/A N/A N/A 0 0 Hypopneas (4% Desat) Count 6 N/A 6 N/A N/A N/A 3 3 Index 0.9 N/A 1 N/A N/A N/A 4.1 0.5 Apneas & All Hypopneas Count 8 N/A 8 N/A N/A N/A 3 5 Index 1.3 N/A 1 N/A N/A N/A 4.1 0.9 Respiratory Events (Dog Bather+All Hyp+RERA) Count 8 N/A 8 N/A N/A N/A 3 5 Index 1.3 N/A 1 N/A N/A N/A 4.1 0.9 Respiratory Related Arousal Count 1 N/A 1 N/A N/A N/A 0 1 Index 0.2 N/A 0 N/A N/A N/A 0 0 Snoring Analysis Supine Right Left Prone REM NREM Total Snore duration 10.5 min Snores count N/A N/A N/A N/A 163 270 433 Snore mean duration 1.5 Sec Snores index N/A N/A N/A N/A 222.3 48.3 68.5 TST with snoring (%) 2.8% Desaturation Event Summary: Minimum %SpO2 Event Count Mean/Min/Max Duration(sec.) Desaturation Index % Time In Bed > 90 20 30.1 / 13.5 / 57.0 2.8 96.6 86 - 90 0 N/A 0.0 3.4 81 - 85 0 N/A 0.0 0.0 76 - 80 0 N/A 0.0 0.0 71 - 75 0 N/A 0.0 0.0 66 - 70 0 N/A 0.0 0.0 61 - 65 0 N/A 0.0 0.0 56 - 60 0 N/A 0.0 0.0 51 - 55 0 N/A 0.0 0.0 < 50 0 N/A 0.0 0.0 Total REM NREM Awake <50% 0.0 min. 0.0 min. 0.0 min. 0.0 min. 51 - 60% 0.0 min. 0.0 min. 0.0 min. 0.0 min. 61 - 70% 0.0 min. 0.0 min. 0.0 min. 0.0 min. 71 - 80% 0.0 min. 0.0 min. 0.0 min. 0.0 min. 81 - 90% 15.0 min. 5.8 min. 6.6 min. 2.6 min. 91 - 100% 425.0 min. 38.2 min. 326.6 min. 60.1 min. Average 94 93 94 94 Minimum SpO2 87 88 87 88 Desaturation Event Index 2.7 5.5 1.1 8.3 # Desat. Events below 89% 2 N/A 1 1 Time(%) with Saturation below 89% 0.4 0.1 0.2 0.0 Time(min.) with Saturation below 89% 1.8 0.6 1.1 0.2 Time (mins) REM (mins) NREM (mins) % of TST SpO2 Below 90% 6 4 N2 1.1 SpO2 Below 88% 0 0 0 0 Heart Rate Analysis Min (bpm) Max (bpm) Average (bpm) Awake 42 196 74 NREM 56 98 63 REM 54 84 62 Overall 54 98 62 Supplemental O2 Values Minimum O2 level: None Value Start Time End Time Process Engineering Manager Comments Mr. Torres slept in the upright position. No cardiac arrhythmia or PLMs noted. No bruxism noted. Snoring was noted and scored as a 2 on a scale of 0 through 5. (0=no snoring, 5=snoring loud enough to be heard through a closed door or down the larios way) Test was started on 2 liters supplemental oxygen and Mr. Torres took the cannula off at 2:30 am. Mr. Torres did not wake to use the restroom during the night. Mr. Torres stated, I did not get much sleep. The final report will be interpreted and signed by a sleep physician. The completed physician report will then be placed in the patient medical record. Therapy (cm H2O) 0 TIB (min.) 452.0 TST (min.) 379.5 Sleep Onset (min.) 14.5 REM Onset From Sleep (min.) 119.0 Sleep Efficiency % 84 Wakefulness (%) 16 Wakefulness (min.) 72.5 NREM 1 (%) 13 NREM 1 (min.) 49.5 NREM 2 (%) 65 NREM 2 (min.) 245.5 NREM 3 (%) 11 NREM 3 (min.) 40.5 REM (%) 12 REM (min.) 44.0 # Arousals 57 Arousal Index 9 # Snore 433 Snore Index 68.5 AHI 1.3 AHI Supine N/A AHI Non-Supine 1 NREM AHI 0.9 REM AHI 4.1 RDI 1.3 # Obstructive Apnea 0 # Central Apnea 2 # Mixed Apnea 0 # Hypopneas 6 RERAs 0 Total Respiratory Events 11 Time Below SpO2 89% (min.) 1.7 Mean NREM SpO2 (%) 94 Mean REM SpO2 (%) 93 Mean Sleep SpO2 (%) 94 Min NREM SpO2 (%) 87 Min REM SpO2 (%) 88 Position Supine (min.) 0.0 Position Non-supine (min.) 379.5 LM Index Sleep 26.1 LM Index NREM 27.5 LM Index REM 15.0 Mean Heart Rate (bpm) 62 Min Heart Rate (bpm) 54
--- NOTE | 2018-04-24 06:53 | PAP/PSG TECHNICIAN REPORT ---
[facility] Digital Producer Polysomnogram Report Study name: None Report date: 04/24/2018 Study date: 04/23/2018 Referring Physician: Blayne Fournier M.D. Name: CHARLES TORRES Interpreting Physician: Blayne Fournier M.D. Date of : 1950 Digital Producer: Penny Mccorm[facility]. Sex: Male Age: 67 StudyType: PSG Weight: 227.2 lbs Height: 67 years, Height 5' 9" Neck Circum: 18 + BMI: 33.55 Medications: Asrido CP24, Aspirin 81 mg, Benzobatate 200 mg, Clotrimazole-Betamethasone 1-0.05%, Colestipol 1 gm, Guaifenesin AC 100-10 MG/5ML, Ipratropium-Albuterol 0.5-2.5 (3) MG/3ML, Levothyroxine Sodium 88 MCG, Loperamide 2mg, Multi VItamin, Nystatin 448555 units/ML, Prednisone 20 mg, Pro Air HFA 108 ( 90 Base), Pulmozyme 1 mg/ml, silenor 3 mg, Spiriva 18 MCG, Spironolactone, Symbicort 160-4.5 MCG/ACT, Torsemide 20 mg, Vitamin B Complex Vitamin D 54797 units Patient History 67 yr. old male here for a possible split night sleep study in room 8. Patient has a history of severe lung disease, COPD/bronchiectasis and tracheomalacia. He had a titration done but could not tolerate CPAP in 2012. He uses supplemental oxygen at night but unknowingly takes it off sometime during the night. ESS 11/24 Parameters Monitored NPSG: E1-M2, E2-M1, Fp1-M2, Fp2-M1, F3-M2, F4-M2, F4-M1, C3-M2, C4-M2, C4-M1, O1-M2, O2-M2, O2-M1, T3-M2, T4-M1, P3-M2, P4-M1, CHIN1, CHIN2, HR, EKG, Legs, PFLOW, SNOR, FLOW, CFLOW, Tidal Volume, THOR, ABDO, SpO2, PLTH, CPRESS, ETCO2 Wave, ETCO2, pH Sleep Architecture Sleep Stages Time at Lights Off 10:01:24 PM STAGES Time (min.) TST (%) Time at Lights On 5:33:24 AM Wake 72.5 -- Total Recording Time (TRT) 452.00 min. N1 49.5 13 Total Sleep Period (TSP) 437.5 min. N2 245.5 65 Total Sleep Time (TST) 379.5min. N3 40.5 11 Awake Time 72.5 min. REM 44.0 12 Wake after Sleep Onset 58.0 min. Sleep Efficiency (SE) 84 % Sleep Onset Latency (SHEBA) 14.5 min. Number of Stage 1 Shifts None Awakenings 32 Stage Changes 145 Number of REM periods 4 REM 44.0 12 REM Latency 119.0 min. NREM 335.5 88 Body Position Analysis Supine Right Left Side Prone Vertical Total Sleep Time (min.) 0.0 0.0 0.0 0.00 0.0 451.7 Total Sleep Time (%) 0% 0% 0% 0 0% 100% Total Sleep Time REM (min.) 0.0 0.0 0.0 None 0.0 44.0 Total Sleep Time NREM (min.) 0.0 0.0 0.0 None 0.0 335.5 Intermittent Wake (min.) 0.0 0.0 0.0 None 0.0 72.2 Total Sleep Period (%) 0% None None None None None Arousals Myoclonus (PLM) * Events Count Index Events Count Index Spontaneous 7 1 Events Awake (PLMW) 128 105.9 Respiratory 1 0.2 Events Asleep w/ Arousal (PLMA) 34 5.4 PLM 33 5 Events Asleep w/o Arousal (PLMS) 131 20.7 Snoring 16 3 Total Asleep 165 26.1 Total 57 9 Total 293 39 Respiratory Analysis * CA OA MA CH H RERA Total Count 2 0 0 0 6 0 8 Index 0.3 0.0 0.0 0 0.9 0 1.3 Mean Duration 15.7 0.0 0.0 0.00 28.5 0.0 25.3 Longest Duration 17.5 0.0 0.0 0.00 0.0 0.0 35.5 Respiratory Event Summary Total Supine ~Supine Right Left Prone REM NREM Apneas Count 2 N/A 2 N/A N/A N/A 0 2 Index 0.3 N/A 0 N/A N/A N/A 0 0 Hypopneas (4% Desat) Count 6 N/A 6 N/A N/A N/A 3 3 Index 0.9 N/A 1 N/A N/A N/A 4.1 0.5 Apneas & All Hypopneas Count 8 N/A 8 N/A N/A N/A 3 5 Index 1.3 N/A 1 N/A N/A N/A 4.1 0.9 Respiratory Events ([employer] Consultant+All Hyp+RERA) Count 8 N/A 8 N/A N/A N/A 3 5 Index 1.3 N/A 1 N/A N/A N/A 4.1 0.9 Respiratory Related Arousal Count 1 N/A 1 N/A N/A N/A 0 1 Index 0.2 N/A 0 N/A N/A N/A 0 0 Snoring Analysis Supine Right Left Prone REM NREM Total Snore duration 10.5 min Snores count N/A N/A N/A N/A 163 270 433 Snore mean duration 1.5 Sec Snores index N/A N/A N/A N/A 222.3 48.3 68.5 TST with snoring (%) 2.8% Desaturation Event Summary: Minimum %SpO2 Event Count Mean/Min/Max Duration(sec.) Desaturation Index % Time In Bed > 90 20 30.1 / 13.5 / 57.0 2.8 96.6 86 - 90 0 N/A 0.0 3.4 81 - 85 0 N/A 0.0 0.0 76 - 80 0 N/A 0.0 0.0 71 - 75 0 N/A 0.0 0.0 66 - 70 0 N/A 0.0 0.0 61 - 65 0 N/A 0.0 0.0 56 - 60 0 N/A 0.0 0.0 51 - 55 0 N/A 0.0 0.0 < 50 0 N/A 0.0 0.0 Total REM NREM Awake <50% 0.0 min. 0.0 min. 0.0 min. 0.0 min. 51 - 60% 0.0 min. 0.0 min. 0.0 min. 0.0 min. 61 - 70% 0.0 min. 0.0 min. 0.0 min. 0.0 min. 71 - 80% 0.0 min. 0.0 min. 0.0 min. 0.0 min. 81 - 90% 15.0 min. 5.8 min. 6.6 min. 2.6 min. 91 - 100% 425.0 min. 38.2 min. 326.6 min. 60.1 min. Average 94 93 94 94 Minimum SpO2 87 88 87 88 Desaturation Event Index 2.7 5.5 1.1 8.3 # Desat. Events below 89% 2 N/A 1 1 Time(%) with Saturation below 89% 0.4 0.1 0.2 0.0 Time(min.) with Saturation below 89% 1.8 0.6 1.1 0.2 Time (mins) REM (mins) NREM (mins) % of TST SpO2 Below 90% 6 4 N2 1.1 SpO2 Below 88% 0 0 0 0 Heart Rate Analysis Min (bpm) Max (bpm) Average (bpm) Awake 42 196 74 NREM 56 98 63 REM 54 84 62 Overall 54 98 62 Supplemental O2 Values Minimum O2 level: None Value Start Time End Time Digital Producer Comments Mr. Torres slept in the upright position. No cardiac arrhythmia or PLMs noted. No bruxism noted. Snoring was noted and scored as a 2 on a scale of 0 through 5. (0=no snoring, 5=snoring loud enough to be heard through a closed door or down the larios way) Test was started on 2 liters supplemental oxygen and Mr. Torres took the cannula off at 2:30 am. Mr. Torres woke up frequently because of coughing. Mr. Torres did not wake to use the restroom during the night. Mr. Torres stated, I did not get much sleep. The final report will be interpreted and signed by a sleep physician. The completed physician report will then be placed in the patient medical record. Therapy Event: Therapy (cm H20) 0 Total Time at Pressure (min.) 451.8 TST at Pressure (min.) 379.5 # Periods 1 Sleep Onset (min.) 14.3 REM Onset (min.) 133.3 Sleep Efficiency % 84 Wakefulness (%) 16.0 Wakefulness (min.) 72.3 NREM 1 (%) 11.0 NREM 1 (min.) 49.5 NREM 2 (%) 54.3 NREM 2 (min.) 245.5 NREM 3 (%) 9.0 NREM 3 (min.) 40.5 REM (%) 9.7 REM (min.) 44.0 # Arousals 57 Arousal Index 9.0 # Snore 433 Snore Index 68.5 AHI 1.3 AHI Supine N/A AHI Non-Supine 1.3 NREM AHI 0.9 REM AHI 4.1 RDI 1.3 # Obstructive 0 # Central Ap 2 # Mixed 0 # Hypopneas 6 RERAS 0 Total Respiratory Events 8 Time Below SpO2 89.00% (min.) 1.7 Mean NREM SpO2 (%) 94 Mean REM SpO2 (%) 93 Mean Sleep SpO2 (%) 94 Min NREM SpO2 (%) 87 Min REM SpO2 (%) 88 Position Supine (min.) 0.0 Position Non-supine (min.) 379.5 LM Index Sleep 26.1 LM Index NREM 27.5 LM Index REM 15.0 Mean Heart Rate (bpm) 62 Min Heart Rate (bpm) 54
--- NOTE | 2018-04-25 19:11 | POLYSOMNOGRAPH REPORT ---
CLINICAL DATA: A 67-year-old male with severe lung disease including COPD, bronchiectasis, and tracheomalacia referred by Dr. Cook and myself for a possible evaluation for sleep apnea and CPAP use. He uses supplemental oxygen at night for his chronic lung disease. SLEEP ARCHITECTURE: Total sleep period was 437.5 minutes. Total sleep time was 379.5 minutes divided between 335.5 minutes of non-REM sleep and 44 minutes of REM sleep. Sleep latency was 14.5 minutes. REM latency was 119 minutes. Sleep efficiency was 84%. Wake after sleep onset was 58 minutes. Sleep consisted of stage N1 13%, stage N2 65%, stage N3 11%, and REM 12%. AROUSAL DATA: 57 arousals were recorded for an index of 9 per hour. PLM DATA: Mildly elevated limb movements in sleep were noted. There were 165 limb movements during sleep noted for an index of 26.1 per hour with arousal index of 5.4 per hour. RESPIRATORY DATA: There was no evidence of clinically significant sleep apnea seen. The AHI was 1.3. There were 2 central apneic episodes. The longest apneic episode was 17.5 seconds. There were 6 hypopneic episodes with mean duration of 28.5 seconds. OXIMETRY DATA: Oxygen was used during the test. No significant hypoxemia was seen. Oxygen areli was 87%. Mean saturation was 94%. EKG: Heart rates ranged from 56-98 beats per minute. No arrhythmias were noted. HARBORMASTER'S COMMENTS: The patient slept upright. Snoring was mild, rated 2 on a scale of 1-5. The patient was started on 2 liters per minute supplemental oxygen, but he took the cannula off at 2:30 a.m. He woke frequently throughout the night due to coughing. He did not feel that he got much sleep that night. IMPRESSION: No evidence of clinically significant sleep apnea/hypopnea. Nocturnal hypoxemia was corrected with oxygen 2 liters per minute. RECOMMENDATIONS: The patient should continue on nocturnal oxygen. There is no need for CPAP at this time. MTDD
== END | disposition home or self-care (01) ==
LOC: C.NEUR 21:00
PROVIDERS: ATTEND Internal Medicine Pulmonary Disease
DX: G47.33 Obstructive sleep apnea (adult) (pediatric) (principal); J43.9 Emphysema, unspecified

== ENCOUNTER → 2018-05-14 | Outpatient (CLI) | payer BC ==
[~2018-05-14] VITALS: Ht 180.3 cm; Wt 104.5 kg
[~2018-05-14] MED LIST changes: -B-CO1CAP17 PO; +B-COCAP2 PO; -BENZ100C84 PO; -GFNSR600 PO; -GUAISYP8 PO
[2018-05-14 16:12] VITALS: BP 143/78; PULSE 91; Ht 180.3 cm; Wt 104.5 kg
== END | disposition home or self-care (01) ==
LOC: C.NEUR 14:28
PROVIDERS: ATTEND Physician Assistant Medical
DX: G47.34 Idiopathic sleep related nonobstructive alveolar hypoventilation (principal); J44.9 Chronic obstructive pulmonary disease, unspecified; K50.90 Crohn's disease, unspecified, without complications

== ENCOUNTER → 2018-05-20 | Outpatient (CLI) | payer BC ==
[2018-05-20 09:54] LABS: ALBUMIN 3.3 gm/dl (3.4-5.0); BLOOD UREA NITROGEN 18 mg/dl (7-18); CARBON DIOXIDE 29 mmol/L (21-32); CREATININE 1.14 mg/dl (0.60-1.40); GLUCOSE 92 mg/dl (70-99); PHOSPHORUS 3.2 mg/dl (2.5-4.9); POTASSIUM 3.2 mmol/L (3.5-5.1); SODIUM 138 mmol/L (136-145)
== END | disposition home or self-care (01) ==
LOC: C.LAB1850 07:41
PROVIDERS: ATTEND Internal Medicine Endocrinology, Diabetes & Metabolism
DX: K57.90 Diverticulosis of intestine, part unspecified, without perforation or abscess without bleeding (principal); J43.9 Emphysema, unspecified; E03.9 Hypothyroidism, unspecified

== ENCOUNTER 2019-01-03 11:38 | Inpatient (IN) ==
[2019-01-03] MEDS ORDERED: ALBUT/IPRATROP 3MG/0.5MG NEB 3 ML VIAL INH STA (11:57)
[2019-01-03] MEDS ORDERED: methylPREDNISolone 60 MG in SYRINGE 1 ML IV STA (11:57)
[2019-01-03] MEDS ORDERED: cefTRIAXone SODIUM 1,000 MG/50 ML BAG IV STA (11:57)
--- NOTE | 2019-01-03 12:28 | XRay Report ---
XR chest 1V portable CLINICAL HISTORY: Shortness of breath. COMPARISON STUDY: Chest CT December 15, 2017. Chest CT September 01, 2018. FINDINGS: Emphysema is noted. There is no pneumothorax or pleural effusion. Mild bibasilar interstiti al thickening is likely chronic. There is no consolidation. Cardiac size is normal. Mediastinal conto urs are normal. Old left-sided rib fractures are incidentally noted. IMPRESSION: 1. Emphysema. 2. No change in bibasilar interstitial thickening which is likely chronic. Electronically signed by: Carl Wu M.D. 01/03/2019 12:27 PM
[2019-01-03 12:40] LABS: Basophils # (auto) 0.08 K/uL (0-0.2); Basophils % (auto) 0.8 %; Eosinophils # (auto) 0.69 K/uL (0-0.5); Eosinophils % (auto) 6.9 %; Hematocrit (blood only) 44.4 % (42-52); Hemoglobin 14.7 g/dL (14.0-18.0); Immature Granulocytes # (auto) 0.02 K/uL (0.00-0.02); Immature Granulocytes % (auto) 0.2 %; Lymphocytes # (auto) 0.82 K/uL (1.2-3.4); Lymphocytes % (auto) 8.1 %; Mean Corpuscular Hgb Conc 33.1 g/dL (32-36); Mean Corpuscular Volume 92.5 fL (80-100); Mean Platelet Volume 10.3 fL (7.4-10.4); Monocytes # (auto) 1.06 K/uL (0.11-0.59); Monocytes % (auto) 10.5 %; Neutrophils % (auto) 73.5 %; Platelet Count 317 K/uL (130-400); RDW Coefficient of Variation 14.9 % (11.5-14.5); RDW Standard Deviation 50.5 fL (36.4-46.3); White Blood Count 10.07 K/uL (4.8-10.8)
[2019-01-03] MEDS ORDERED: methylPREDNISolone 125 MG/2 ML VIAL ONE (12:50)
[2019-01-03 12:54] LABS: INR 1.1 (0.9-1.1); Partial Thromboplastin Ratio 1.1; Partial Thromboplastin Time 28.6 Seconds (21.0-31.0); Prothrombin Time 11.3 Seconds (9.0-12.0)
[2019-01-03 12:59] LABS: Alanine Aminotransferase 38 U/L (12-78); Albumin Level 3.7 gm/dl (3.4-5.0); Aspartate Aminotransferase 28 U/L (15-37); BUN Creatinine Ratio 12.4 (10-20); Blood Urea Nitrogen 13 mg/dl (7-18); Calcium 9.1 mg/dl (8.5-10.1); Carbon Dioxide 29 mmol/L (21-32); Chloride 103 mmol/L (98-107); Creatinine Clr Calc Pharmacy 84.1 ml/min; Est GFR (African American) 87.1; Est GFR (Non-African American) 75.2; Glucose 92 mg/dl (70-99); Potassium 3.8 mmol/L (3.5-5.1); Sodium 139 mmol/L (136-145)
[2019-01-03 13:04] LABS: Albumin Globulin Ratio 0.9 (0.9-2); Alkaline Phosphatase 97 U/L (45-117); Globulin 3.9 gm/dl (2.5-4.0); Total Protein 7.6 gm/dl (6.4-8.2); Troponin I < 0.015 ng/ml (0-0.045)
[2019-01-03 13:04] LABS: Influenza A virus by PCR Neg for Influ A (Neg); Influenza B virus by PCR Neg for Influ B (Neg)
--- NOTE | 2019-01-03 13:52 | History & Physical Report ---
Date of Service January 03, 2019 Assessment & Plan (1) Dyspnea on exertion: Ongoing issue Bronch scheduled for Sunday however sx worsened Ceftriaxone, nebs, solumedrol 40mg TID, mucomyst Vibration vest Follows with Dr. Garcia and Reinaldo Martinez, c/s pending Continuous O2 CXR neg for acute Flu neg CBC WNL, afebrile Trop neg (2) Bronchiectasis: continue home meds As above (3) Hypertension: continue home meds (4) Hypothyroid: continue home meds (5) Crohn's disease in remission: continue home meds (6) ADELAIDA (obstructive sleep apnea): HS O2 at baseline (7) DVT prophylaxis: SCDs Holding rx for likely bronch History of Present Illness Primary Care Provider: Jocelyne Cook 68 y/o M c/o worsening cough and SOUZA. Pt has chronic bronchiectasis. He requires regular bronchoscopy for management of this issue. His last bronch was 11/13/18. The plan was for Q2 month scheduled bronch, which was scheduled for 01/06. Pt has been having worsening cough and SOUZA, congestion over the last 2-3 weeks however. He was seen by pulm and put on nebs and zithromax, however it has continued to worsen to the point where he cannot ambulate much at all wit hout getting extremely SOB. He has prolonged coughing spells in which he gets SOB as well. He always feels congested. He states that he gets chest heaviness when he cannot breathe due to coughing, but no brianda chest pain and this is always associated with the feeling of not getting enough air due to coughing. He has been tolerating PO without issue. Pt denies fever, SOB, chest pain, abd pain, n/v, LE pain or swelling. Pt states he has Crohn's and therefore his bowel movements are frequently with diarrhea, although not always. He wears HS O2 but has not tried this during the day. Pt was given ceftriaxone, steroids, nebs in the ED. He states his cough is slightly less, but he feels ongoing SOB when trying to ambulate to the restroom. Allergies Allergy/AdvReac Type Severity Reaction Status Date / Time No Known Allergies Allergy Verified 01/01/19 09:10 Home Medications Home Medications Medication Instructions Recorded Confirmed Type Spiriva with HandiHaler 1 cap INHALATION DAILY 09/01/18 01/03/19 History albuterol sulfate 2 puff INHALATION Q4H PRN 09/01/18 01/03/19 History ascorbic acid (vitamin C) [Vitamin 500 mg PO DAILY 09/01/18 01/03/19 History C] benzonatate 200 mg PO TID PRN 09/01/18 01/03/19 History bumetanide 1 mg PO DAILY 09/01/18 01/03/19 History cholecalciferol (vitamin D3) 1,000 unit PO DAILY 09/01/18 01/03/19 History [Vitamin D3] colestipol 1 g PO BID 09/01/18 01/03/19 History doxepin 3 mg PO HS 09/01/18 01/03/19 History escitalopram oxalate 10 mg PO DAILY 09/01/18 01/03/19 History levothyroxine 112 mcg PO DAILY 09/01/18 01/03/19 History loperamide 2 mg PO Q3H PRN 09/01/18 01/03/19 History mesalamine 0.375 g PO DAILY 09/01/18 01/03/19 History multivitamin 1 tab PO DAILY 09/01/18 01/03/19 History potassium chloride 20 meq PO DAILY 09/01/18 01/03/19 History vitamin B complex 1 tab PO DAILY 09/01/18 01/03/19 History albuterol sulfate [ProAir HFA] 1 puff INHALATION Q6H PRN 01/03/19 01/03/19 History azithromycin 250 mg PO DAILY 01/03/19 01/03/19 History sodium chloride 4 ml INHALATION BID 01/03/19 01/03/19 History Past Med/Surg History Medical History Hypertension Hypothyroid Crohn's disease in remission Diastolic heart failure Bronchiectasis (Chronic) COPD (chronic obstructive pulmonary disease) (Acute) Surgical History History of bronchoscopy (Acute) History of cardiac catheterization (Acute) History of colonoscopy (Acute) Family History Other Hypertension No significant family history Social History Preferred Language: Bulgarian Beliefs That Will Affect Care: None Current Living Situation: Spouse Current Living Situation Comment: With Spouse and [place] Feels Safe at Home: Yes Smoking Status: Former smoker Hx Alcohol Use: Yes (1-2 drinks per month) Hx Substance Use: No Review of Systems Pertinent positives and negatives reviewed in HPI--all others negative Physical Exam Vital Signs (Past 24 Hours): Last Vital Signs Temp 36.7 C 01/03/19 11:41 Pulse 73 01/03/19 12:55 Resp 18 01/03/19 12:55 BP 116/65 01/03/19 12:55 Pulse Ox 92 01/03/19 12:55 Constitutional: WD/WN, vitals as above Eyes: normal visual conway by confrontation and + anicteric sclerae Neck: normal visual inspection and trachea midline Respiratory: no respiratory distress Auscultation: + diminished lung sounds and + wheezes (diffuse, expiratory and inspiratory) Cardiovascular: Rate/Rhythm: regular rate and regular rhythm Gastrointestinal (Abdomen): Inspection/Auscultation: abdomen not distended Percussion/Palpation: abdomen soft; abdomen nontender Musculoskeletal: Head/Neck/Chest: normocephalic and head atraumatic negative for edema, peripheral pulses intact Skin: no rashes, warm and dry Neurologic: awake; not confused Speech / Cognition: normal speech Psychiatric: A+Ox3, euthymic affect Results & Data Diagnostic Findings CXR: neg for acute with chronic changes noted Code Status & VTE Plan Code Status Other: Full code, although pt states no prolonged mechanical life support, feeding tubes, etc VTE Prophylaxis Plan VTE Prophylaxis will be ordered: Yes (1) Bronchiectasis Bronchiectasis type: with acute exacerbation Qualified Code(s): J47.1 - Bronchiectasis with (acute) exacerbation
[2019-01-03] MEDS ORDERED: ONDANSETRON INJ 2 MG/ML 2 ML VIAL IV PRN (14:43)
[2019-01-03] MEDS ORDERED: ACETAMINOPHEN 325 MG TAB PO PRN (14:43)
[2019-01-03] MEDS ORDERED: LOPERAMIDE HCL 2 MG CAP PO PRN (14:43)
[2019-01-03] MEDS ORDERED: MAGNESIUM HYDROXIDE SUSP 30 ML UDC PO PRN (14:43)
[2019-01-03] MEDS ORDERED: ALBUTEROL HFA 8 GM INHALER INH PRN (14:43)
[2019-01-03] MEDS ORDERED: ALBUTEROL SULFATE INH PRN (14:43)
[2019-01-03] MEDS: ALBUT/IPRATROP 3MG/0.5MG NEB 3 ML VIAL NEB SCH ×3 (16:25→23:21)
--- NOTE | 2019-01-03 16:47 | Emergency Department Note ---
Entered by Belgica Martinez acting as a scribe for History of Present Illness General Chief complaint: Cough Stated complaint: COUGHING AND SHORTNESS OF BREATH Time Seen by Provider: 01/03/19 11:51 Source: patient History of Present Illness Onset (ago): day(s) 4 Location: left (Lung) and right (Lung) Severity: similar to prior episodes Pain Consistency: + other (Worsening) Maximum Pain Intensity: 5 Quality: + other (Cough) Relieved By: + medication (Steroids) Associated symptoms: + shortness of breath; no fever/chills Treatments prior to arrival: other (Nebulizer) The patient is a 68 year old male who presents to the Emergency Room with complaints of worsening cough starting 4 days ago. The patient reports that he is short of breath and dizzy. He states that he believes he is experiencing an exacerbation of his bronchiectasis. He notes that he usually sees Dr. [employer] Officer for these symptoms. The patient reports that he has experienced these symptoms before. He states that he is currently using Zithromax and fr equent nebulizer treatments. He adds that he used his Nebulizer [employer] and that it did not improve his symptoms. The patient reports that he normally uses 2L of supplemental oxygen at night. He denies fevers and chills. Home Medications Home Medications Medication Instructions Recorded Confirmed Type Spiriva with HandiHaler 1 cap INHALATION DAILY 09/01/18 01/03/19 History albuterol sulfate 2 puff INHALATION Q4H PRN 09/01/18 01/03/19 History ascorbic acid (vitamin C) [Vitamin 500 mg PO DAILY 09/01/18 01/03/19 History C] benzonatate 200 mg PO TID PRN 09/01/18 01/03/19 History bumetanide 1 mg PO DAILY 09/01/18 01/03/19 History cholecalciferol (vitamin D3) 1,000 unit PO DAILY 09/01/18 01/03/19 History [Vitamin D3] colestipol 1 g PO BID 09/01/18 01/03/19 History doxepin 3 mg PO HS 09/01/18 01/03/19 History escitalopram oxalate 10 mg PO DAILY 09/01/18 01/03/19 History levothyroxine 112 mcg PO DAILY 09/01/18 01/03/19 History loperamide 2 mg PO Q3H PRN 09/01/18 01/03/19 History mesalamine 0.375 g PO DAILY 09/01/18 01/03/19 History multivitamin 1 tab PO DAILY 09/01/18 01/03/19 History potassium chloride 20 meq PO DAILY 09/01/18 01/03/19 History vitamin B complex 1 tab PO DAILY 09/01/18 01/03/19 History albuterol sulfate [ProAir HFA] 1 puff INHALATION Q6H PRN 01/03/19 01/03/19 H istory azithromycin 250 mg PO DAILY 01/03/19 01/03/19 History sodium chloride 4 ml INHALATION BID 01/03/19 01/03/19 History Allergies Allergy/AdvReac Type Severity Reaction Status Date / Time No Known Allergies Allergy Verified 01/01/19 09:10 Past Med/Surg History Medical History Hypertension Hypothyroid Crohn's disease in remission Diastolic heart failure Bronchiectasis (Chronic) COPD (chronic obstructive pulmonary disease) (Acute) Surgical History History of bronchoscopy (Acute) History of cardiac catheterization (Acute) History of colonoscopy (Acute) Social History Preferred Language: Tamaz[place] Beliefs That Will Affect Care: None Current Living Situation: Spouse Current Living Situation Comment: With Spouse and Stepson Other Information That Helps Us Care for You: No Feels Safe at Home: Yes Smoking Status: Former smoker Hx Alcohol Use: Yes (1-2 drinks per month) Hx Substance Use: No Review of Systems See HPI for pertinent positives & negatives. and A total of 10 systems reviewed and were otherwise negative Physical Exam Vital Signs Vital Signs - 24 hr 01/03/19 11:41 01/03/19 12:10 01/03/19 12:55 Temperature 36.7 C Temperature Source Oral Sepsis Recent Fever Within 48 Hours No Sepsis New/Unexplained Change in Mental Status No Sepsis Action Taken by Nursing No Action Required Pulse Rate 81 71 Pulse Rate [Apical] 73 Pulse Rate [Right Brachial] Respiratory Rate 18 18 Respiratory Effort / Characteristics Respiratory Depth Normal Blood Pressure 135/77 Blood Pressure [Left Arm] 116/65 Blood Pressure [Right Arm] Blood Pressure Mean 96 Blood Pressure Mean [Left Arm] 82 Blood Pressure Mean [Right Arm] Blood Pressure Position Sitting Blood Pressure Position [Right Arm] Pulse Oximetry 89 L 94 92 Oxygen Delivery Method Room Air Nebulizer Nasal Cannula Oxygen Flow Rate 2 2 01/03/19 14:04 01/03/19 14:20 01/03/19 16:01 Temperature 37.1 C 37.2 C Temperature Source Oral Oral Sepsis Recent Fever Within 48 Hours Sepsis New/Unexplained Change in Mental Status Sepsis Action Taken by Nursing Pulse Rate Pulse Rate [Apical] 67 Pulse Rate [Right Brachial] 89 Respiratory Rate 20 20 Respiratory Effort / Characteristics Respiratory Depth Normal Blood Pressure Blood Pressure [Left Arm] 132/71 Blood Pressure [Right Arm] 136/75 Blood Pressure Mean Blood Pressure Mean [Left Arm] 91 Blood Pressure Mean [Right Arm] 95 Blood Pressure Position Blood Pressure Position [Right Arm] Semi-fowlers Pulse Oximetry 92 91 Oxygen Delivery Method Nasal Cannula Nasal Cannula Oxygen Flow Rate 2 2 01/03/19 16:25 Temperature Temperature Source Sepsis Recent Fever Within 48 Hours Sepsis New/Unexplained Change in Mental Status Sepsis Action Taken by Nursing Pulse Rate Pulse Rate [Apical] Pulse Rate [Right Brachial] 90 Respiratory Rate 22 Respiratory Effort / Characteristics Spontaneous Respiratory Depth Blood Pressure Blood Pressure [Left Arm] Blood Pressure [Right Arm] Blood Pressure Mean Blood Pressure Mean [Left Arm] Blood Pressure Mean [Right Arm] Blood Pressure Position Blood Pressure Position [Right Arm] Pulse Oximetry 88 L Oxygen Delivery Method Nasal Cannula Oxygen Flow Rate 1 GENERAL: Patient is in no acute distress. HEENT: No acute trauma, normocephalic atraumatic, mucous membranes moist, no nasal congestion, no scleral icterus. NECK: No stridor, no adenopathy, no meningismus, trachea is midline. LUNGS: Moist cough noted. Wheezing and rhonchi bilaterally. Breath sounds somewhat diminished bilaterally but equal. HEART: Cannot assess because of overriding lung sounds. ABDOMEN: Soft, nontender, bowel sounds positive, no hernias, no peritonitis. EXTREMITIES: No cyanosis or edema, full range of motion of all the joints without pain or difficulty, no signs for acute trauma. NEUROLOGIC: Oriented x 3, no acute motor or sensory deficits, no focal weakness. SKIN: No rash, no jaundice, no diaphoresis. Course 1150: The patient was evaluated in room A4B, and a complete history and physical examination were performed. 1202: I reviewed the patient's case with Reinaldo Martinez PA-c - pulmonolgy who recom mends that the patient stay in the hospital and be given a vibrating vest and mucamist. 1259: I reviewed the patient's case with Dr. Jamie POLLACK hospitalist. She will evaluate the patient for further management. Consultations Consultation #1: I reviewed the patient's case with Reinaldo Martinez PA-c - pulmonolgy who recommends that the patient stay in the hospital and be given a vibrating vest and mucamist. Time: 12:02 Consultation #2: I reviewed the patient's case with Dr. Jamie POLLACK hospitalist. She will evaluate the patient for further management. Time: 12:59 Administered Medications Albuterol (Duoneb) 3 ml NEB Q4R VILMA Stop: 02/02/19 15:59 Last Admin: 01/03/19 16:25 Dose: 3 ml Documented by: [id number] Miscellaneous (Order Awaiting Action) 1 ea N/A QS VILMA Stop: 02/02/19 15:59 Last Admin: 01/03/19 16:46 Dose: Not Given Documented by: [id number] Miscellaneous (Order Awaiting Action) 1 ea N/A QS VILMA Stop: 02/02/19 15:59 Last Admin: 01/03/19 16:46 Dose: Not Given Documented by: [id number] Discontinued Medications Albuterol (Duoneb) 3 ml INH NOW STA Stop: 01/03/19 11:58 Last Admin: 01/03/19 12:09 Dose: 3 ml Documented by: [id number] Ceftriaxone Sodium (Rocephin) 1,000 mg in 50 mls @ 100 mls/hr IV NOW STA Stop: 01/03/19 12:26 Last Infusion: 01/03/19 13:28 Dose: 0 mls/hr Documented by: [id number] Admin: 01/03/19 12:57 Dose: 100 mls/hr Documented by: [id number] Methylprednisolone 60 mg/ (Syringe) 1.96 mls @ 1.5 mls/min IV NOW STA Stop: 01/03/19 11:58 Last Admin: 01/03/19 12:57 Dose: Not Given Documented by: [id number] Methylprednisolone (Solumedrol) Confirm Administered Dose 125 mg .ROUTE .STK-MED ONE Stop: 01/03/19 12:51 Last Admin: 01/03/19 12:57 Dose: 60 mg Documented by: [id number] Medical Decision Making Differential Diagnosis Differentials include exacerbation of COPD, exacerbation of bronchiectasis, pneumonia, influenza, flu-like illness, CHF, pneumothorax and failed outpatient treatment among others. Medical Records Attestation: I reviewed the patient's medical records. Home Medications Current Medication List: was personally reviewed by me Laboratory Data Attestation: I reviewed the patient's lab results. Result diagrams: 01/03/19 12:31 01/03/19 12:31 Lab Results 01/03/19 01/03/19 01/03/19 Range/Units 12: 12: 12:31 WBC 10.07 (4.8-10.8) K/uL RBC 4.80 (4.7-6.1) M/uL Hgb 14.7 (14.0-18.0) g/dL Hct 44.4 (42-52) % MCV 92.5 (80-100) fL MCH 30.6 (25-34) pg MCHC 33.1 (32-36) g/dL RDW Std Deviation 50.5 H (36.4-46.3) fL RDW Coeff of Ryan 14.9 H (11.5-14.5) % Plt Count 317 (130-400) K/uL MPV 10.3 (7.4-10.4) fL Immature Gran % (Auto) 0.2 % Neut % (Auto) 73.5 % Lymph % (Auto) 8.1 % [place] % (Auto) 10.5 % Eos % (Auto) 6.9 % Baso % (Auto) 0.8 % Immature Gran # (Auto) 0.02 (0.00-0.02) K/uL Neut # (Auto) 7.40 H (1.4-6.5) K/uL Lymph # (Auto) 0.82 L (1.2-3.4) K/uL [place] # (Auto) 1.06 H (0.11-0.59) K/uL Eos # (Auto) 0.69 H (0-0.5) K/uL Baso # (Auto) 0.08 (0-0.2) K/uL PT 11.3 (9.0-12.0) Seconds INR 1.1 (0.9-1.1) APTT 28.6 (21.0-31.0) Seconds PTT Ratio 1.1 Sodium (136-145) mmol/L Potassium (3.5-5.1) mmol/L Chloride (98-107) mmol/L Carbon Dioxide (21-32) mmol/L Anion Gap (3-11) BUN (7-18) mg/dl Creatinine (0.6-1.4) mg/dl Est Cr Clr Drug Dosing ml/min Est GFR ( Amer) Est GFR (Non-Af Amer) BUN/Creatinine Ratio (10-20) Glucose (70-99) mg/dl Calcium (8.5-10.1) mg/dl Total Bilirubin (0.2-1) mg/dl AST (15-37) U/L ALT (12-78) U/L Alkaline Phosphatase (45-117) U/L Troponin I (0-0.045) ng/ml Total Protein (6.4-8.2) gm/dl Albumin (3.4-5.0) gm/dl Globulin (2.5-4.0) gm/dl Albumin/Globulin Ratio (0.9-2) Influenza Type A (PCR) Neg for Influ A (Neg) Influenza Type B (PCR) Neg for Influ B (Neg) 01/03/19 Range/Units 12:31 WBC (4.8-10.8) K/uL RBC (4.7-6.1) M/uL Hgb (14.0-18.0) g/dL Hct (42-52) % MCV (80-100) fL MCH (25-34) pg MCHC (32-36) g/dL RDW Std Deviation (36.4-46.3) fL RDW Coeff of Ryan (11.5-14.5) % Plt Count (130-400) K/uL MPV (7.4-10.4) fL Immature Gran % (Auto) % Neut % (Auto) % Lymph % (Auto) % [place] % (Auto) % Eos % (Auto) % Baso % (Auto) % Immature Gran # (Auto) (0.00-0.02) K/uL Neut # (Auto) (1.4-6.5) K/uL Lymph # (Auto) (1.2-3.4) K/uL [place] # (Auto) (0.11-0.59) K/uL Eos # (Auto) (0-0.5) K/uL Baso # (Auto) (0-0.2) K/uL PT (9.0-12.0) Seconds INR (0.9-1.1) APTT (21.0-31.0) Seconds PTT Ratio Sodium 139 (136-145) mmol/L Potassium 3.8 (3.5-5.1) mmol/L Chloride 103 (98-107) mmol/L Carbon Dioxide 29 (21-32) mmol/L Anion Gap 7.0 (3-11) BUN 13 (7-18) mg/dl Creatinine 1.02 (0.6-1.4) mg/dl Est Cr Clr Drug Dosing 84.1 ml/min Est GFR ( Amer) 87.1 Est GFR (Non-Af Amer) 75.2 BUN/Creatinine Ratio 12.4 (10-20) Glucose 92 (70-99) mg/dl Calcium 9.1 (8.5-10.1) mg/dl Total Bilirubin 1.0 (0.2-1) mg/dl AST 28 (15-37) U/L ALT 38 (12-78) U/L Alkaline Phosphatase 97 (45-117) U/L Troponin I < 0.015 (0-0.045) ng/ml Total Protein 7.6 (6.4-8.2) gm/dl Albumin 3.7 (3.4-5.0) gm/dl Globulin 3.9 (2.5-4.0) gm/dl Albumin/Globulin Ratio 0.9 (0.9-2) Influenza Type A (PCR) (Neg) Influenza Type B (PCR) (Neg) Imaging Data Radiologist's Impression: Radiology results as stated below per my review and the radiologist's interpretation: XR chest 1V portable CLINICAL HISTORY: Shortness of breath. COMPARISON STUDY: Chest CT December 15, 2017. Chest CT September 01, 2018. FINDINGS: Emphysema is noted. There is no pneumothorax or pleural effusion. Mild bibasilar interstitial thickening is likely chronic. There is no consolidation. Cardiac size is normal. Mediastinal contours are normal. Old left-sided rib fractures are incidentally noted. IMPRESSION: 1. Emphysema. 2. No change in bibasilar interstitial thickening which is likely chronic. Electronically signed by: Carl Wu M.D. 01/03/2019 12:27 PM ECG Data Attestation: I personally reviewed and interpreted this ECG as follows: Indication: SOB/dyspnea Rate (beats per minute): 72 Rhythm: normal sinus Findings: no PVC and no ST elevation Blood Pressure Blood Pressure Findings: Normal blood pressure Blood Pressure Disposition: further management by hospitalist [facility] Narrative There is no leukocytosis or concerning anemia. No coagulopathy. No significant electrolyte abnormality, kidney failure or hepatitis. EKG shows a sinus rhythm, no acute ischemia. Cardiac enzyme testing x1 is not consistent with acute cardiac injury. Influenza testing was negative. Chest film shows some chronic change, no CHF, no focal pneumonia. The patient presents with worsening dyspnea despite treatment as an outpatient for the last several weeks. He is on nebulizers and antibiotics. I spoke to the patient's pulmonary group, they recommended a hospital stay. Patient was given IV ceftriaxone, IV Solu-Medrol, a DuoNeb. He was maintained on nasal cannula O2 as he presented slightly hypoxic. The patient is going to be hospitalized. I did go over all the findings with the patient and his family. I did speak with the foster care case manager. The on-call hospitalist was consulted. The patient has failed outpatient therapy. He appears to have a flareup of bronchiectasis and likely will benefit from bronchoscopy. Impression & Plan Hypoxia, SOB (shortness of breath), Acute exacerbation of bronchiectasis Discharge Plan Visit Data *Final* Discharge Date/Time: 01/03/19 14:26 Chief Complaint: Cough Stated Complaint: COUGHING AND SHORTNESS OF BREATH ED Provider: Moy Talbot Discharge Problem: Hypoxia, SOB (shortness of breath), Acute exacerbation of bronchiectasis Patient Disposition: Admitted As Inpatient Discharge Instructions Interventions: ED Discharge Assessment Last Done: 01/03/19 14:26 The scribe's documentation has been prepared under my direction and personally reviewed by me in its entirety. I confirm that the note above accurately reflects all work, treatment, procedures, and medical decision making performed by me.
--- NOTE | 2019-01-03 19:12 | Pulmonary Consultation ---
Date of Consultation January 03, 2019 Assessment & Plan (1) Bronchiectasis: acute on chronic exacerbation of bronchiectasis of unknown cause continue airway clearance/chest PT flutter valve vest albuterol/ipratropium hypertonic saline steroids on ceftriaxone but if showing signs of acute infection will need abx with pseudomonal coverage scheduled for bronchoscopy on sunday Bronchiectasis type: with acute exacerbation Qualified Code(s): J47.1 - Bronchiectasis with (acute) exacerbation History of Present Illness Attending Physician: Ashley Ayala DO History of Present Illness 68 y/o male with chronic bronchiectasis of unknown cause presenting with increasing shortness of breath over the past 1.5 weeks. He has been doing airway clearance at home with vest, flutter valve, hypertonic saline. However despite this he has required bronchoscopy every 2 months which he was scheduled for on sunday but could not wait. no fevers no chills. + productive cough. trouble walking around due to dyspnea on exertion Allergies Allergy/AdvReac Type Severity Reaction Status Date / Time No Known Allergies Allergy Verified 01/01/19 09:10 Home Medications Home Medications Medication Instructions Recorded Confirmed Type Spiriva with HandiHaler 1 cap INHALATION DAILY 09/01/18 01/03/19 History albuterol sulfate 2 puff INHALATION Q4H PRN 09/01/18 01/03/19 History ascorbic acid (vitamin C) [Vitamin 500 mg PO DAILY 09/01/18 01/03/19 History C] benzonatate 200 mg PO TID PRN 09/01/18 01/03/19 History bumetanide 1 mg PO DAILY 09/01/18 01/03/19 History cholecalciferol (vitamin D3) 1,000 unit PO DAILY 09/01/18 01/03/19 History [Vitamin D3] colestipol 1 g PO BID 09/01/18 01/03/19 History doxepin 3 mg PO HS 09/01/18 01/03/19 History escitalopram oxalate 10 mg PO DAILY 09/01/18 01/03/19 History levothyroxine 112 mcg PO DAILY 09/01/18 01/03/19 History loperamide 2 mg PO Q3H PRN 09/01/18 01/03/19 History mesalamine 0.375 g PO DAILY 09/01/18 01/03/19 History multivitamin 1 tab PO DAILY 09/01/18 01/03/19 History potassium chloride 20 meq PO DAILY 09/01/18 01/03/19 History vitamin B complex 1 tab PO DAILY 09/01/18 01/03/19 History albuterol sulfate [ProAir HFA] 1 puff INHALATION Q6H PRN 01/03/19 01/03/19 History azithromycin 250 mg PO DAILY 01/03/19 01/03/19 History sodium chloride 4 ml INHALATION BID 01/03/19 01/03/19 History Patient History Medical History Hypertension Hypothyroid Crohn's disease in remission Diastolic heart failure Bronchiectasis (Chronic) COPD (chronic obstructive pulmonary disease) (Acute) Surgical History History of bronchoscopy (Acute) History of cardiac catheterization (Acute) History of colonoscopy (Acute) Social History Preferred Language: Barb[place] Beliefs That Will Affect Care: None Current Living Situation: Spouse Current Living Situation Comment: With Spouse and Stepson Other Information That Helps Us Care for You: No Feels Safe at Home: Yes Smoking Status: Former smoker Hx Alcohol Use: Yes (1-2 drinks per month) Hx Substance Use: No Review of Systems Constitutional: no fevers no chills no weight loss Eyes: no blurry or double vision EENT: no sore throat, no congestion Respiratory: + cough + shortness of breath Cardiovascular: + chest pain no palpitations GI: no abdominal pain, no nausea, no vomiting, + diarrhea, no constipation Gu: no dysuria, no frequency MSK: no joint pain, no muscle aches Skin: no rash Neuro: no headache, no dizziness, no focal weakness heme: no easy bruising, no lymphadenopathy Psych: no depression, no anxiety Physical Exam Vital Signs (Past 24 Hours): Last Vital Signs Temp 37.2 C 01/03/19 16:01 Pulse 90 01/03/19 16:25 Resp 22 01/03/19 16:25 BP 136/75 01/03/19 16:01 Pulse Ox 88 L 01/03/19 16:25 Physical Exam: Constitutional: Comfortable NAD HEENT: normocephalic atraumatic. MMM. no cervical lymphadenopathy CV: RRR nl s1,s2 no murmurs rubs or gallops Lungs: crackles bilaterally. no accessory muscle use Abd: soft nontender nondistended. normal bowel sounds Ext: no edema. no cyanosis, no clubbing Skin: warm dry Neuro: alert and oriented. moving all extremities Psych: normal mood and affect Results & Data Laboratory Results Laboratory Results - last 24 hr 01/03/19 01/03/19 01/03/19 12:05 12:31 12:31 WBC 10.07 RBC 4.80 Hgb 14.7 Hct 44.4 MCV 92.5 MCH 30.6 MCHC 33.1 RDW Std Deviation 50.5 H RDW Coeff of Ryan 14.9 H Plt Count 317 MPV 10.3 Immature Gran % (Auto) 0.2 Neut % (Auto) 73.5 Lymph % (Auto) 8.1 [place] % (Auto) 10.5 Eos % (Auto) 6.9 Baso % (Auto) 0.8 Immature Gran # (Auto) 0.02 Neut # (Auto) 7.40 H Lymph # (Auto) 0.82 L [place] # (Auto) 1.06 H Eos # (Auto) 0.69 H Baso # (Auto) 0.08 PT 11.3 INR 1.1 APTT 28.6 PTT Ratio 1.1 Sodium Potassium Chloride Carbon Dioxide Anion Gap BUN Creatinine Est Cr Clr Drug Dosing Est GFR ( Amer) Est GFR (Non-Af Amer) BUN/Creatinine Ratio Glucose Calcium Total Bilirubin AST ALT Alkaline Phosphatase Troponin I Total Protein Albumin Globulin Albumin/Globulin Ratio Influenza Type A (PCR) Neg for Influ A Influenza Type B (PCR) Neg for Influ B 01/03/19 12:31 WBC RBC Hgb Hct MCV MCH MCHC RDW Std Deviation RDW Coeff of Ryan Plt Count MPV Immature Gran % (Auto) Neut % (Auto) Lymph % (Auto) [place] % (Auto) Eos % (Auto) Baso % (Auto) Immature Gran # (Auto) Neut # (Auto) Lymph # (Auto) [place] # (Auto) Eos # (Auto) Baso # (Auto) PT INR APTT PTT Ratio Sodium 139 Potassium 3.8 Chloride 103 Carbon Dioxide 29 Anion Gap 7.0 BUN 13 Creatinine 1.02 Est Cr Clr Drug Dosing 84.1 Est GFR ( Amer) 87.1 Est GFR (Non-Af Amer) 75.2 BUN/Creatinine Ratio 12.4 Glucose 92 Calcium 9.1 Total Bilirubin 1.0 AST 28 ALT 38 Alkaline Phosphatase 97 Troponin I < 0.015 Total Protein 7.6 Albumin 3.7 Globulin 3.9 Albumin/Globulin Ratio 0.9 Influenza Type A (PCR) Influenza Type B (PCR) Diagnostic Findings XR chest 1V portable CLINICAL HISTORY: Shortness of breath. COMPARISON STUDY: Chest CT December 15, 2017. Chest CT September 01, 2018. FINDINGS: Emphysema is noted. There is no pneumothorax or pleural effusion. Mild bibasilar interstitial thickening is likely chronic. There is no consolidation. Cardiac size is normal. Mediastinal contours are normal. Old left-sided rib fractures are incidentally noted. IMPRESSION: 1. Emphysema. 2. No change in bibasilar interstitial thickening which is likely chronic. Electronically signed by: Carl Wu M.D. 01/03/2019 12:27 PM
[2019-01-03] MEDS: ACETYLCYSTEINE 20% INHAL SOLN ***DISPENSED BY RESP. INH SCH (19:59)
[2019-01-03] MEDS ORDERED: SODIUM CHLOR 7% 4 ML NEB INH SCH (20:00)
[2019-01-03] MEDS: SODIUM CHLOR 7% 4 ML NEB INH SCH (20:16)
[2019-01-03] MEDS ORDERED: [UNRECOGNIZED DRUG - OTHER] INH SCH (21:00)
[2019-01-03] MEDS: methylPREDNISolone 40 MG in SYRINGE 0 ML IV SCH (21:08)
[2019-01-03] MEDS: COLESTIPOL HCL 1 GM TAB PO SCH (21:09)
[2019-01-03] MEDS: BENZONATATE 100 MG CAPSULE PO PRN (21:09)
[2019-01-03] MEDS ORDERED: DiphenhydrAMINE HCL 50 MG/ML VIAL IV STA (22:43)
[2019-01-04] MEDS: ALBUT/IPRATROP 3MG/0.5MG NEB 3 ML VIAL NEB SCH ×6 (03:42→23:19)
[2019-01-04] MEDS: LEVOTHYROXINE SODIUM 112 MCG TABLET PO SCH (06:32)
[2019-01-04] MEDS: ACETYLCYSTEINE 20% INHAL SOLN ***DISPENSED BY RESP. INH SCH ×2 (07:42→19:38)
[2019-01-04] MEDS: SODIUM CHLOR 7% 4 ML NEB INH SCH ×2 (07:43→19:40)
[2019-01-04] MEDS: MESALAMINE 0.375 GM PO SCH (08:24)
[2019-01-04] MEDS: ASCORBIC ACID 500 MG TAB PO SCH (08:25)
[2019-01-04] MEDS: BUMETANIDE 1 MG TAB PO SCH (08:25)
[2019-01-04] MEDS: CHOLECALCIFEROL 1,000 UNITS TAB PO SCH (08:25)
[2019-01-04] MEDS: methylPREDNISolone 40 MG in SYRINGE 0 ML IV SCH ×3 (08:27→20:38)
[2019-01-04] MEDS: POTASSIUM CHLORIDE 10 MEQ TABCR PO SCH (08:27)
[2019-01-04] MEDS: ESCITALOPRAM OXALATE 10 MG TAB PO SCH (08:27)
[2019-01-04] MEDS: MULTIVITAMIN TAB PO SCH (08:27)
[2019-01-04] MEDS: COLESTIPOL HCL 1 GM TAB PO SCH ×2 (08:28→20:39)
[2019-01-04] MEDS: TIOTROPIUM BROMIDE 5 PUFF/90 MCG INH INH SCH (08:29)
--- NOTE | 2019-01-04 08:29 | Hospitalist Progress Note ---
Date of Service January 04, 2019 Assessment & Plan (1) Dyspnea on exertion: copd ? based on CXR Bronch scheduled for Saturday 01/06, however sx worsened, will keep npo after bronch Ceftriaxone, nebs, solumedrol 40mg TID, mucomyst Vibration vest Continuous O2 CXR neg for acute pneumonia or heart failure Flu neg Trop neg (2) Bronchiectasis: continue home meds, facilitate mucus removal (3) Hypertension: controlled by home bumex (4) Hypothyroid: clinically replete on synthroid (5) Crohn's disease in remission: mesalamine and cholestipol (6) ADELAIDA (obstructive sleep apnea): HS O2 at baseline (7) DVT prophylaxis: SCDs may use chemoprophylaxis if held before sunday Subjective Patient says he feels much better overnight but still having cough and severe dyspnea. Was able to sleep over received intravenous Benadryl overnight. He is anxiously waiting to speak to Dr. mckeon and possibly have a bronchoscopy on Sunday Review of Systems ROS: well nourished well developed. No double vision blurry vision No problems with speech or swallowing No palpitations, chest pain or pressure Shortness of breath wheezing and coughing dyspnea on exertion No abdominal pain nausea vomiting diarrhea changes in appetite or weight No burning urine urine frequency or changes in color No focal joint pain or muscle pain No skin rashes or oral lesions No unusual bruising or bleeding No focused back pain or numbness or loss of strength No changes in memory or confusion Physical Exam Vital Signs (Past 24 Hours): Last Vital Signs Temp 36.3 C L 01/04/19 07:32 Pulse 68 01/04/19 07:48 Resp 18 01/04/19 07:48 BP 107/58 L 01/04/19 07:32 Pulse Ox 93 01/04/19 07:48 The patient appeared well nourished and normally developed. Vital signs as documented. Head exam is unremarkable. normocephalic, atraumatic Neck is without jugular venous distension, thyromegaly, or lymphademopathy Lungs are coarse bronchial breath sounds bilaterally with no focal loss no egophony no wheeze Cardiac exam reveals Rhythm is regular. First and second heart sounds normal. Abdominal exam reveals normal bowel sounds, no masses, no organomegaly Extremities are nonedematous and both pedal pulses are present Neurologic exam is A&Ox3, no focal deficits, strength is equal bilateral Psychologically seems neither anxious or depressed Skin is warm Dry without bruises or lesions (1) Bronchiectasis Bronchiectasis type: with acute exacerbation Qualified Code(s): J47.1 - Bronchiectasis with (acute) exacerbation
[2019-01-04] MEDS ORDERED: NON-FORMULARY MEDICATION (Vitamin B Complex 1 TAB) PO SCH (09:00)
--- NOTE | 2019-01-04 10:03 | Pulmonology Progress Note ---
Date of Service January 04, 2019 Assessment & Plan (1) Bronchiectasis: acute on chronic exacerbation of bronchiectasis of unknown cause improving continue airway clearance/chest PT flutter valve vest albuterol/ipratropium hypertonic saline steroids on ceftriaxone but if showing signs of acute infection will need abx with pseudomonal coverage titrate humidified o2 for sat >92% scheduled for bronchoscopy on sunday Bronchiectasis type: with acute exacerbation Qualified Code(s): J47.1 - Bronchiectasis with (acute) exacerbation Subjective feeling a little better than yesterday Physical Exam Vital Signs (Past 24 Hours): Last Vital Signs Temp 36.3 C L 01/04/19 07:32 Pulse 68 01/04/19 07:48 Resp 18 01/04/19 07:48 BP 107/58 L 01/04/19 07:32 Pulse Ox 93 01/04/19 07:48 Physical Exam: Constitutional: Comfortable NAD HEENT: normocephalic atraumatic. MMM. CV: RRR nl s1,s2 no murmurs rubs or gallops Lungs: crackles bilaterally(slightly better than yesterday. no accessory muscle use Abd: soft nontender nondistended. normal bowel sounds Ext: no edema. no cyanosis, no clubbing Skin: warm dry Neuro: alert and oriented. moving all extremities Psych: normal mood and affect
[2019-01-04] MEDS: ENOXAPARIN INJ 40 MG/0.4 ML SYR SQ SCH (10:19)
[2019-01-04] MEDS: CEFEPIME 2,000 MG in SYRINGE 7.5 ML IV SCH ×2 (10:19→17:33)
[2019-01-04] MEDS ORDERED: cefTRIAXone SODIUM 1,000 MG in DEXTROSE 5% 50 ML IV SCH (12:00)
[2019-01-04] MEDS: BENZONATATE 100 MG CAPSULE PO PRN (22:12)
[2019-01-04] MEDS: LORazepam 0.5 MG/1 ML VIAL IV PRN (22:12)
[2019-01-05] MEDS: CEFEPIME 2,000 MG in SYRINGE 7.5 ML IV SCH ×3 (02:11→18:30)
[2019-01-05] MEDS: LORazepam 0.5 MG/1 ML VIAL IV PRN (02:50)
[2019-01-05] MEDS: ALBUT/IPRATROP 3MG/0.5MG NEB 3 ML VIAL NEB SCH ×6 (03:29→23:13)
[2019-01-05] MEDS: LEVOTHYROXINE SODIUM 112 MCG TABLET PO SCH (06:13)
[2019-01-05] MEDS: ACETYLCYSTEINE 20% INHAL SOLN ***DISPENSED BY RESP. INH SCH ×2 (07:07→19:36)
[2019-01-05] MEDS: SODIUM CHLOR 7% 4 ML NEB INH SCH ×2 (07:08→19:39)
--- NOTE | 2019-01-05 07:36 | Hospitalist Progress Note ---
Date of Service January 05, 2019 Assessment & Plan (1) Dyspnea on exertion: copd / bronchiectasis Bronch scheduled for Saturday 01/06, Given lung disease have broadened antibiotics to Cefepime for pseudomonas coverage, , solumedrol 40mg bid on 01/07, mucomyst Vibration vest, albuterol and spiriva Continuous O2 CXR neg for acute pneumonia or heart failure Flu neg Trop neg (2) Bronchiectasis: continue home meds, facilitate mucus removal with flutter valve and chest vest (3) Hypertension: fairly controlled by home bumex (4) Hypothyroid: remains clinically replete on synthroid (5) Crohn's disease in remission: mesalamine and cholestipol, he remains without symptoms (6) ADELAIDA (obstructive sleep apnea): HS O2 at baseline (7) DVT prophylaxis: SCDs may use chemoprophylaxis Subjective Patient complains of having a poor night sleep Lorazepam did not help as much as diphenhydramine. He brought his own sleeping it in which be confirmed with pharmacy. He still has a nonproductive cough he still has dyspneic on exertion and feels a difficulty to take a full breath. He is scheduled for bronchoscopy at 8 AM on 01/[address] Garcia. Review of Systems ROS: well nourished well developed. No double vision blurry vision No problems with speech or swallowing No palpitations, chest pain or pressure Significant breathing issues and dyspnea with moving about No abdominal pain nausea vomiting diarrhea changes in appetite or weight No burning urine urine frequency or changes in color No focal joint pain or muscle pain No skin rashes or oral lesions No unusual bruising or bleeding No focused back pain or numbness or loss of strength No changes in memory or confusion Physical Exam Vital Signs (Past 24 Hours): Last Vital Signs Temp 36.6 C 01/05/19 00:00 Pulse 81 01/05/19 07:10 Resp 18 01/05/19 07:10 BP 143/64 H 01/05/19 00:00 Pulse Ox 98 01/05/19 07:10 The patient appeared well nourished and normally developed. Vital signs as documented. Head exam is unremarkable. normocephalic, atraumatic Neck is without jugular venous distension, thyromegaly, or lymphademopathy Lung exam shows very coarse rhonchorous breath sounds bilaterally today worse on the left than the right poor air movement no focal air loss or wheeze Cardiac exam reveals Rhythm is regular. First and second heart sounds normal. Abdominal exam reveals normal bowel sounds, no masses, no organomegaly Extremities are nonedematous and both pedal pulses are present Neurologic exam is A&Ox3, no focal deficits, strength is equal bilateral Psychologically seems neither anxious or depressed Skin is warm Dry without bruises or lesions (1) Bronchiectasis Bronchiectasis type: with acute exacerbation Qualified Code(s): J47.1 - Bronchiectasis with (acute) exacerbation
[2019-01-05] MEDS: MESALAMINE 0.375 GM PO SCH (09:20)
[2019-01-05] MEDS: TIOTROPIUM BROMIDE 5 PUFF/90 MCG INH INH SCH (09:21)
[2019-01-05] MEDS: COLESTIPOL HCL 1 GM TAB PO SCH ×2 (09:22→20:41)
[2019-01-05] MEDS: BUMETANIDE 1 MG TAB PO SCH (09:22)
[2019-01-05] MEDS: ESCITALOPRAM OXALATE 10 MG TAB PO SCH (09:23)
[2019-01-05] MEDS: ENOXAPARIN INJ 40 MG/0.4 ML SYR SQ SCH (09:23)
[2019-01-05] MEDS: POTASSIUM CHLORIDE 10 MEQ TABCR PO SCH (09:23)
[2019-01-05] MEDS: ASCORBIC ACID 500 MG TAB PO SCH (09:24)
[2019-01-05] MEDS: methylPREDNISolone 40 MG in SYRINGE 0 ML IV SCH ×3 (09:24→20:41)
[2019-01-05] MEDS: MULTIVITAMIN TAB PO SCH (09:24)
[2019-01-05] MEDS: CHOLECALCIFEROL 1,000 UNITS TAB PO SCH (09:25)
--- NOTE | 2019-01-05 13:43 | Pulmonology Progress Note ---
Date of Service January 05, 2019 Assessment & Plan (1) Bronchiectasis: acute on chronic exacerbation of bronchiectasis of unknown cause improving continue airway clearance/chest PT flutter valve vest albuterol/ipratropium hypertonic saline steroids continue cefepime titrate humidified o2 for sat >92% scheduled for bronchoscopy tomorrow Bronchiectasis type: with acute exacerbation Qualified Code(s): J47.1 - Bronchiectasis with (acute) exacerbation Subjective more short of breath overnight with trouble sleeping Physical Exam Vital Signs (Past 24 Hours): Last Vital Signs Temp 36.7 C 01/05/19 08:00 Pulse 77 01/05/19 11:36 Resp 18 01/05/19 11:36 BP 135/68 01/05/19 08:00 Pulse Ox 95 01/05/19 11:36 Physical Exam: Constitutional: Comfortable NAD HEENT: normocephalic atraumatic. MMM. CV: RRR nl s1,s2 no murmurs rubs or gallops Lungs: coarse breath sounds. no accessory muscle use Abd: soft nontender nondistended. normal bowel sounds Ext: no edema. no cyanosis, no clubbing Skin: warm dry Neuro: alert and oriented. moving all extremities Psych: normal mood and affect
[2019-01-05] MEDS: DOXEPIN 6 MG PO SCH (22:27)
[2019-01-06] MEDS: CEFEPIME 2,000 MG in SYRINGE 7.5 ML IV SCH ×3 (02:10→18:42)
[2019-01-06] MEDS: ALBUT/IPRATROP 3MG/0.5MG NEB 3 ML VIAL NEB SCH ×6 (02:23→23:08)
[2019-01-06] MEDS: ACETYLCYSTEINE 20% INHAL SOLN ***DISPENSED BY RESP. INH SCH (07:14)
[2019-01-06] MEDS: LEVOTHYROXINE SODIUM 112 MCG TABLET PO SCH (07:20)
--- NOTE | 2019-01-06 08:46 | History & Physical Bridge Note ---
Date of Service January 06, 2019 History & Physical Bridge Note I have examined the patient, reviewed the History & Physical and in the interval since the performance of the History & Physical I have noted the following changes of clinical significance: no changes noted
--- NOTE | 2019-01-06 08:47 | Pre Anesthesia Assessment ---
Date of Service January 06, 2019 Pre Sedation Assessment Vital Signs Temp Pulse Resp BP Pulse Ox 01/06/19 08:18 36.7 C 71 18 126/71 91 01/06/19 07:16 77 18 92 01/06/19 02:24 70 17 94 01/05/19 23:15 71 18 97 01/05/19 22:34 36.4 C L 78 18 127/73 92 01/05/19 19:36 86 17 95 01/05/19 15:12 36.4 C L 81 16 127/65 95 01/05/19 15:10 80 16 94 01/05/19 11:36 77 18 95 Cardiovascular RRR, no murmur, no edema + peripheral pulses normal Respiratory normal respiratory effort, lungs clear to auscultation Pre-Sedation Airway Assessment Smoking Status: Never smoker Hx Sleep Apnea: No Hx Difficult Intubation: No Short, Thick Neck: No Thyromental Distance: > or= 3.5 Finger Breadths Oral Cavity: + WNL Mallampati Class: II ASA: ASA2 Procedure Planning Contraindications for Sedation: none Current Medications Reviewed: Yes Notes The planned sedation has been discussed with the patient. Informed Consent was obtained. I have identified the patient, determined the appropriateness of sedation and have assessed the patient immediately prior to the procedure. All medicine(s) and interventions are by my order.
--- NOTE | 2019-01-06 09:41 | Post Anesthesia Assessment ---
Date of Service January 06, 2019 Post Sedation Assessment Vital Signs Temp Pulse Pulse Resp BP BP Pulse Ox 01/06/19 09:30 79 20 147/78 H 01/06/19 09:25 74 20 136/68 01/06/19 09:20 114 H 24 143/79 H 01/06/19 09:15 68 20 129/71 01/06/19 09:10 79 20 157/82 H 01/06/19 08:18 36.7 C 71 18 126/71 91 01/06/19 07:16 77 18 92 01/06/19 02:24 70 17 94 01/05/19 23:15 71 18 97 01/05/19 22:34 36.4 C L 78 18 127/73 92 01/05/19 19:36 86 17 95 01/05/19 15:12 36.4 C L 81 16 127/65 95 01/05/19 15:10 80 16 94 01/05/19 11:36 77 18 95 Recovery Score Activity: Moves 4 extremities Respiration: Deep Breath/Cough Circulation: +/-20% PreAnes Value Consciousness: Arouseable (by name) Oxygen Saturation: O2 needed for >90% Discharge Sedation Level of Care: Fast Track Phase II Post Sedation Plan On clinical assessment, the patient appears to have tolerated the sedation without complications. Patient is recovering as anticipated. Patient will continue to be monitored by nursing and may be discharged when sedation discharge criteria are met per below protocol. Upon Completions of procedure and additional 15 minutes continue every 5 minute vital signs and the P.A.R. score; then discharge to a Phase I or Fast Track to Phase II per the following guidelines: * Discharge Patient to appropriate Phase II area if PAR is 8 or greater or return to pre- procedure baseline. The post - procedure orders will be as directed. * If PAR score is less than 8 or not return to pre-procedure baseline then patient will follow Phase I monitoring till PAR is reached for Phase II. The Phase I may be done in procedure room or may call to secure a Phase I area. * If naloxone or flumazenil are used for reversal, hold in Phase I for continued monitoring from when last reversal dose was given for a minimum of 60 minutes or longer pending the nurse and/or physician discretion of patient condition before discharge to Phase II. Please call the Sedation Physician to re-evaluate and complete post-note for discharge to Phase II area. Do NOT discharge from procedure sedation or Phase 1 until post- sedation arely luation note is complete by procedure /sedation MD Sedation Discharge Instructions to be given to the patient at discharge to home.
--- NOTE | 2019-01-06 09:42 | Post Operative Brief Note ---
Immediate Post Op Note v1 Date of Surgery January 06, 2019 Pre & Post Diagnosis Operation Date: 01/06/19 09:00 Pre-Op Diagnosis: bronchiectasis Post-Op Diagnosis: bronchiectasis Procedure Operation Date: 01/06/19 09:00 Actual Procedures p Bronchoscopy (Bilateral) - Volodymyr Garcia MD Surgeon Volodymyr Garcia MD Watch Assembly Inspector none Estimated Blood Loss 0 Findings Consistent with Post-Op Diagnosis Chronic Bronchiectasis w mucoid impaction Complications none Disposition Accompanied Patient To Recovery: No Overlapping Procedure I was present for: the critical portions of procedure. I was immediately available: during the entire case. Back up surgeon: was not required during procedure.
[2019-01-06] MEDS: ESCITALOPRAM OXALATE 10 MG TAB PO SCH ×2 (09:50→12:38)
[2019-01-06] MEDS: POTASSIUM CHLORIDE 10 MEQ TABCR PO SCH (09:50)
[2019-01-06] MEDS: MULTIVITAMIN TAB PO SCH ×2 (09:50→12:38)
[2019-01-06] MEDS: BUMETANIDE 1 MG TAB PO SCH ×2 (09:50→12:38)
[2019-01-06] MEDS: COLESTIPOL HCL 1 GM TAB PO SCH ×2 (09:50→21:24)
[2019-01-06] MEDS: MESALAMINE 0.375 GM PO SCH ×2 (09:50→12:38)
[2019-01-06] MEDS: TIOTROPIUM BROMIDE 5 PUFF/90 MCG INH INH SCH ×2 (09:51→12:37)
[2019-01-06] MEDS ORDERED: OXYMETAZOLINE 0.05% 30 ML BTL ONE (09:51)
[2019-01-06] MEDS: SODIUM CHLORIDE 0.9% 1000ML 1,000 ML IV SCH (09:51)
[2019-01-06] MEDS: SODIUM CHLOR 7% 4 ML NEB INH SCH ×2 (09:51→20:19)
[2019-01-06] MEDS ORDERED: LEVALBUTEROL 1.25MG/0.5ML NEB NEB STA (09:51)
[2019-01-06] MEDS: ASCORBIC ACID 500 MG TAB PO SCH ×2 (09:51→12:37)
[2019-01-06] MEDS: CHOLECALCIFEROL 1,000 UNITS TAB PO SCH ×2 (09:51→12:37)
[2019-01-06] MEDS ORDERED: LIDOCAINE 4% INH SOLN 4 ML BTL INH ONE (10:00)
[2019-01-06] MEDS ORDERED: LIDOCAINE 4% INH SOLN 4 ML BTL INH SCH (10:00)
[2019-01-06] MEDS ORDERED: LIDOCAINE HCL 2% (LOCAL) INJ 50 ML VIAL INSTIL SCH (10:00)
[2019-01-06] MEDS: methylPREDNISolone 40 MG in SYRINGE 0 ML IV SCH ×3 (10:02→21:23)
[2019-01-06] MEDS ORDERED: MIDAZOLAM HCL 1 MG/ML 2ML VIAL IV PRN (10:05)
[2019-01-06] MEDS ORDERED: fentaNYL citrate 100 MCG/2 ML VIAL IV PRN (10:05)
[2019-01-06] MEDS ORDERED: ACETYLCYSTEINE 20% INHAL SOLN ***DISPENSED BY RESP. INH ONE (10:12)
--- NOTE | 2019-01-06 10:14 | Operative Report ---
DATE OF OPERATION: 01/06/2019 TIME: 0900 hours. PROCEDURE: Fiberoptic bronchoscopy with bronchoalveolar lavage. INDICATIONS: Chronic bronchiectasis with mucoid impaction and refractory to aggressive outpatient therapy. ANESTHESIA PREOPERATIVELY: None. ANESTHESIA DURING PROCEDURE: A 7 mg IV Versed, 100 mcg IV fentanyl, 20 mL 2% Xylocaine spray above and below the cords, 4% viscous Xylocaine intranasally. Moderate conscious sedation was begun at 0912 and completed at 0932. DESCRIPTION OF PROCEDURE: Fiberoptic bronchoscope was inserted into the right naris with minimal difficulty and passed to the level of the true vocal cords. The cords appeared to approximate normally with phonation without evidence of lesions or paralysis. A significant amount of mucopus was seen pooling in the supraglottic region and was lavaged until clear. The cords were anesthetized and appeared to approximate normally with phonation without evidence for lesions or paralysis. The trachea and right and left tracheobronchial tree was explored. EDAC or endoscopic dynamic airway collapse was seen to involve the posterior tracheal wall just at the level of the behzad and right bronchus intermedius. The scope was entered into the right mainstem bronchus and copious amounts of mucopurulent and mucoviscous secretion was lavaged from all lobar segments until clear. The right upper lobe at the apical posterior and anterior segments, bronchus intermedius, right middle lobe and the medial lateral segments and all basilar segments of right lower lobe were found to be free of endobronchial lesions, with each lobar segment and segmental bronchus explored and lavaged copiously with normal saline. Bronchial crypts and clefts were seen and visible throughout the right tracheobronchial tree. No endobronchial lesions were seen. The left tracheobronchial tree was explored. Similar findings were noted with copious mucopurulent secretion lavaged from all lobar segments until clear and the aspirate sent for appropriate studies. Left upper lobe at the apical posterior and anterior segments, lingular subdivision, and all basilar segments of left lower lobe were found to be free of endobronchial lesions. Bronchial crypts and clefts were also visible throughout the left tracheobronchial tree. No brushings or biopsies were attempted. Fluoroscopy was not utilized. A total of 3 mL of 20% Mucomyst was instilled throughout the right and an additional 3 mL throughout the left tracheobronchial tree. Additional lavage with normal saline was carried out from the right and left tracheobronchial tree. The procedure was terminated. The patient was given a nebulizer treatment with Xopenex 1.25 mg and then transferred to the medical floor, hemodynamically stable, no signs of respiratory compromise. Will await microbiological and cytologic examination of the bronchial washings. I attest to the content of the Intraoperative Record and any orders documented therein. Any exception s are noted below.
[2019-01-06] MEDS ORDERED: LIDOCAINE HCL VISCOUS SOLN 2% 15 ML UDC EXT ONE (10:22)
--- NOTE | 2019-01-06 10:22 | Progress Note ---
DATE: 01/06/2019 Chart reviewed and patient examined. SUBJECTIVE: The patient had a dry cough prior to the bronchoscopic procedure, was unable to expectorate despite vigorous pulmonary toilet that was applied both as an outpatient and then upon his admission through the weekend. He has been receiving hypertonic saline, nebulizer with DuoNeb solution around the clock and the use of a flutter valve for airway clearance. He has been also on oxygen and that has been humidified and on high-dose steroid therapy and IV cefepime. OBJECTIVE: CURRENT VITAL SIGNS: Blood pressure 132/68, pulse 73 and regular, respiratory rate 20, temperature 36.7, O2 sat 96% on 8 liters while receiving a nebulizer. SKIN: Without lesion. HEENT: Atraumatic, normocephalic, PERRLA, EOMI. Conjunctivae pale. Sclerae nonicteric. Fundi poorly visualized. NECK: Neck veins are not distended at 45 degrees. No lymphadenopathy in the supra or infraclavicular areas. LUNGS: Scattered wheeze with decreased breath sounds bilaterally. CARDIAC: Regular rate and rhythm. No murmurs or gallops. PMI nondisplaced. ABDOMEN: Soft, scaphoid. No evidence of hepatosplenomegaly. EXTREMITIES: No pedal edema, clubbing or cyanosis. NEUROLOGIC: Intact. No lateralizing signs. LABORATORY DATA: Chest x-ray on admission shows changes of emphysema, but no change in the bibasilar interstitial thickening that appears chronic. Previous bronchial washings of 11/13/2018 grew out [place]. On admission, the patient's white count was 10,000, H and H 14.7 and 44.4. Eosinophils have been running anywhere from 6.9-7.4% since November 2018. PT, PTT, INR within normal limits. Chemistry is unremarkable. IgE level on 10/19/2017 was 77 and 26 in July 2018. Influenza type A and B PCR have been negative. Fungitell has been negative in the past. OVERALL ASSESSMENT: A 68-year-old with chronic bronchiectasis/chronic obstructive pulmonary disease with mucoid impaction scheduled for bronchoscopic intervention with lavage and culture and additional serologic studies have been ordered.
[2019-01-06] MEDS ORDERED: COUGH DROP (SUGAR FREE) LOZ 24 LOZ/1 BOX BUCCAL PRN (21:22)
[2019-01-06] MEDS: DOXEPIN 6 MG PO SCH (21:24)
--- NOTE | 2019-01-06 23:07 | Hospitalist Progress Note ---
Date of Service January 06, 2019 Assessment & Plan (1) Dyspnea on exertion: copd / bronchiectasis Bronch completed today Saturday 01/06, Given lung disease have broadened antibiotics to Cefepime for pseudomonas coverage, , solumedrol 40mg bid on 01/07, mucomyst Vibration vest, albuterol and spiriva Continuous O2 CXR neg for acute pneumonia or heart failure Flu neg Trop neg D/W pulmonary, large amount of secretions suctioned. Will continue to monitor. Expect patient will continue to improve. (2) Bronchiectasis: continue home meds, facilitate mucus removal with flutter valve and chest vest (3) Hypertension: fairly controlled by home bumex (4) Hypothyroid: remains clinically replete on synthroid (5) Crohn's disease in remission: mesalamine and cholestipol, he remains without symptoms (6) ADELAIDA (obstructive sleep apnea): HS O2 at baseline (7) DVT prophylaxis: SCDs may use chemoprophylaxis Spent 35 minutes in management of patient. Subjective Patient reports breathing better after the bronch. He states he no longer has a productive cough. Patient denies fever, chills, nausea, vomiting. Physical Exam Vital Signs (Past 24 Hours): Last Vital Signs Temp 36.3 C L 01/06/19 15:21 Pulse 84 01/06/19 20:05 Resp 18 01/06/19 20:05 BP 150/79 H 01/06/19 15:21 Pulse Ox 94 01/06/19 20:05 Physical Exam: The patient appeared well nourished and normally developed. Vital signs as documented. Head exam is unremarkable. normocephalic, atraumatic Neck is without jugular venous distension, thyromegaly, or lymphademopathy Lung exam shows very coarse rhonchorous breath sounds bilaterally today worse on the left than the right poor air movement no focal air loss or wheeze Cardiac exam reveals Rhythm is regular. First and second heart sounds normal. Abdominal exam reveals normal bowel sounds, no masses, no organomegaly Extremities are nonedematous and both pedal pulses are present Neurologic exam is A&Ox3, no focal deficits, strength is equal bilateral Psychologically seems neither anxious or depressed Skin is warm Dry without bruises or lesions (1) Bronchiectasis Bronchiectasis type: with acute exacerbation Qualified Code(s): J47.1 - Bronchiectasis with (acute) exacerbation
[2019-01-07] MEDS: CEFEPIME 2,000 MG in SYRINGE 7.5 ML IV SCH ×3 (02:16→17:04)
[2019-01-07] MEDS: ALBUT/IPRATROP 3MG/0.5MG NEB 3 ML VIAL NEB SCH ×5 (03:03→20:00)
[2019-01-07] MEDS: LEVOTHYROXINE SODIUM 112 MCG TABLET PO SCH (06:17)
[2019-01-07] MEDS: SODIUM CHLOR 7% 4 ML NEB INH SCH ×2 (07:10→20:00)
[2019-01-07 07:42] LABS: Hematocrit (blood only) 44.5 % (42-52); Hemoglobin 14.9 g/dL (14.0-18.0); Mean Corpuscular Hgb Conc 33.5 g/dL (32-36); Mean Corpuscular Volume 91.4 fL (80-100); Mean Platelet Volume 10.4 fL (7.4-10.4); Platelet Count 318 K/uL (130-400); RDW Coefficient of Variation 14.6 % (11.5-14.5); RDW Standard Deviation 48.9 fL (36.4-46.3); Red Blood Count 4.87 M/uL (4.7-6.1); White Blood Count 15.84 K/uL (4.8-10.8)
[2019-01-07 08:01] LABS: Creatinine Clr Calc Pharmacy 91.2 ml/min; Est GFR (African American) 96.2
[2019-01-07] MEDS: CHOLECALCIFEROL 1,000 UNITS TAB PO SCH (08:09)
[2019-01-07] MEDS: ESCITALOPRAM OXALATE 10 MG TAB PO SCH (08:09)
[2019-01-07] MEDS: BUMETANIDE 1 MG TAB PO SCH (08:10)
[2019-01-07] MEDS: TIOTROPIUM BROMIDE 5 PUFF/90 MCG INH INH SCH (08:10)
[2019-01-07] MEDS: ASCORBIC ACID 500 MG TAB PO SCH (08:10)
[2019-01-07] MEDS: methylPREDNISolone 40 MG in SYRINGE 0 ML IV SCH ×3 (08:10→21:07)
[2019-01-07] MEDS: POTASSIUM CHLORIDE 10 MEQ TABCR PO SCH (08:10)
[2019-01-07] MEDS: MULTIVITAMIN TAB PO SCH (08:10)
[2019-01-07] MEDS: COLESTIPOL HCL 1 GM TAB PO SCH ×2 (08:11→19:42)
[2019-01-07] MEDS: MESALAMINE 0.375 GM PO SCH (08:13)
[2019-01-07] MEDS: SODIUM CHLORIDE 0.9% 1000ML 1,000 ML IV SCH (11:49)
--- NOTE | 2019-01-07 12:08 | Progress Note ---
DATE: 01/07/2019 PULMONARY MEDICINE PROGRESS NOTE Chart reviewed, patient examined. SUBJECTIVE: The patient feels somewhat better since yesterday's bronchoscopy, but still remains quite bronchospastic. I have had a chance to review the [facility] pulmonary evaluation and consultation from June 2018 and the patient was seen by Dr. Tran, a clutch assembler at that facility. The patient has serial CAT scans that show cylindrical chronic bronchiectasis at the bases. He has also had a history of mucoid impaction as well as aspiration involving the right lower lobe of a corn kernel that was removed bronchoscopically. 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 He has been on a vibration vest with a flutter valve at home and has continuous aerosolized bronchodilators as well as 7% normal saline. We will add acetylcysteine to his nebulizer regimen. He has been on inhaled Kiko in the past, which he did not tolerate. Reviewing the bronchial washings over the years, he has had Moraxella growth of the bronchial washings along with Haemophilus influenza, but I do not see gram negatives grown from the bronchial washing on a continuous basis at this point in time. We will not add inhaled Kiko and still await culture results.
[2019-01-07] MEDS: ACETYLCYSTEINE 20% INHAL SOLN ***DISPENSED BY RESP. INH SCH (20:00)
[2019-01-07] MEDS: ARFORMOTEROL TART 15MCG/2ML VIAL INH SCH (21:21)
[2019-01-07] MEDS: DOXEPIN 6 MG PO SCH (22:07)
--- NOTE | 2019-01-07 23:31 | Hospitalist Progress Note ---
Date of Service January 07, 2019 Assessment & Plan (1) Dyspnea on exertion: copd / bronchiectasis Bronch completed today Saturday 01/06, Given lung disease have broadened antibiotics to Cefepime for pseudomonas coverage, , solumedrol 40mg bid on 01/07, mucomyst Vibration vest, albuterol and spiriva Continuous O2 CXR neg for acute pneumonia or heart failure Flu neg Trop neg D/W pulmonary, large amount of secretions suctioned on 01/06 Patient is awaiting culture. Given that patient has a mild set back, will make sense to await cultures. Appreciate pulmonary input. Will repeat x-ray in AM Will continue to monitor. (2) Bronchiectasis: continue home meds, facilitate mucus removal with flutter valve and chest vest (3) Hypertension: fairly controlled by home bumex (4) Hypothyroid: remains clinically replete on synthroid (5) Crohn's disease in remission: mesalamine and cholestipol, he remains without symptoms (6) ADELAIDA (obstructive sleep apnea): HS O2 at baseline (7) DVT prophylaxis: SCDs may use chemoprophylaxis Spent 25 minutes in management of patient. Subjective Patient reports not feeling back to his baseline and today he feels more congested. Patient has been requiring oxygen, he still states he is winded. He states he no longer has a productive cough. Patient denies fever, chills, nausea, vomiting. Physical Exam Vital Signs (Past 24 Hours): Last Vital Signs Temp 36.6 C 01/07/19 15:49 Pulse 86 01/07/19 23:16 Resp 18 01/07/19 23:16 BP 138/67 01/07/19 15:49 Pulse Ox 96 01/07/19 23:16 Physical Exam: The patient appeared well nourished and normally developed. Vital signs as documented. Head exam is unremarkable. normocephalic, atraumatic Neck is without jugular venous distension, thyromegaly, or lymphademopathy Lung exam shows very coarse breath sounds bilaterally with some expiratory wheezing. Cardiac exam reveals Rhythm is regular. First and second heart sounds normal. Abdominal exam reveals normal bowel sounds, no masses, no organomegaly Extremities are nonedematous and both pedal pulses are present Neurologic exam is A&Ox3, no focal deficits, strength is equal bilateral Psychologically seems neither anxious or depressed Skin is warm Dry without bruises or lesions (1) Bronchiectasis Bronchiectasis type: with acute exacerbation Qualified Code(s): J47.1 - Bronchiectasis with (acute) exacerbation
[2019-01-08] MEDS: CEFEPIME 2,000 MG in SYRINGE 7.5 ML IV SCH ×3 (02:44→17:53)
[2019-01-08] MEDS: ALBUT/IPRATROP 3MG/0.5MG NEB 3 ML VIAL NEB SCH ×5 (04:13→20:10)
[2019-01-08] MEDS: LEVOTHYROXINE SODIUM 112 MCG TABLET PO SCH (06:21)
[2019-01-08] MEDS: ARFORMOTEROL TART 15MCG/2ML VIAL INH SCH ×3 (06:58→20:13)
[2019-01-08] MEDS: ACETYLCYSTEINE 20% INHAL SOLN ***DISPENSED BY RESP. INH SCH ×2 (06:58→20:12)
[2019-01-08] MEDS: SODIUM CHLOR 7% 4 ML NEB INH SCH ×2 (06:58→20:13)
[2019-01-08] MEDS: MULTIVITAMIN TAB PO SCH (07:41)
[2019-01-08] MEDS: POTASSIUM CHLORIDE 10 MEQ TABCR PO SCH (07:41)
[2019-01-08] MEDS: ASCORBIC ACID 500 MG TAB PO SCH (07:41)
[2019-01-08] MEDS: COLESTIPOL HCL 1 GM TAB PO SCH ×2 (07:41→20:33)
[2019-01-08] MEDS: CHOLECALCIFEROL 1,000 UNITS TAB PO SCH (07:41)
[2019-01-08] MEDS: TIOTROPIUM BROMIDE 5 PUFF/90 MCG INH INH SCH (07:41)
[2019-01-08] MEDS: BUMETANIDE 1 MG TAB PO SCH (07:41)
[2019-01-08] MEDS: ESCITALOPRAM OXALATE 10 MG TAB PO SCH (07:41)
[2019-01-08] MEDS: SODIUM CHLORIDE 0.9% 1000ML 1,000 ML IV SCH (07:42)
[2019-01-08] MEDS: MESALAMINE 0.375 GM PO SCH (07:42)
[2019-01-08] MEDS: methylPREDNISolone 40 MG in SYRINGE 0 ML IV SCH ×3 (08:41→20:33)
--- NOTE | 2019-01-08 10:17 | XRay Report ---
XR chest 2V routine CLINICAL HISTORY: sob dyspnea COMPARISON STUDY: 01/03/2019 FINDINGS: Stable emphysematous change. Developing interstitial/parenchymal infiltrate left base. Lung s otherwise are clear. At least one healing left rib fracture. IMPRESSION: Developing parenchymal infiltrate left base superimposed upon chronic and emphysematous change. The above report was generated using voice recognition software. It may contain grammatical, syntax or spelling errors. Electronically signed by: Gregorio Lagos M.D. 01/08/2019 10:16 AM
[2019-01-08 15:56] LABS: CMV DNA Qnt Real Time PCR <200 IU/mL (<200); CMV DNA Quant PCR <2.30 log IU/mL (<2.30)
--- NOTE | 2019-01-08 19:19 | Progress Note ---
DATE: 01/08/2019 PULMONARY MEDICINE PROGRESS NOTE Chart reviewed, patient examined and assessed. SUBJECTIVE: The patient seems to be holding his own. He is still somewhat bronchospastic but tolerating it well. He has been placed on aerosolized bronchodilator, both short and long acting, 7% normal saline via nebulizer and I added acetylcysteine to his regimen. In addition, he has got a vibration vest and flutter valve, and I have had a chance to review old records from previous pulmonary evaluations including the one performed at [facility]. The patient clearly has significant bronchiectasis with mucoid impaction. He also demonstrated EDAC or endoscopic dynamic airway collapse on bronchoscopic exam, which may be playing a role here. To date, the cultures from the bronchial washings are negative and he had been on inhaled tobramycin as per [facility], but was poorly tolerated. To the best of my knowledge, I have reviewed all cultures from multiple bronchoscopic evaluations and I could not find pseudomonas growing from the bronchial washings in the past, but Moraxella was grown. The patient was intolerant to inhaled tobramycin and that was discontinued. I explained to the patient that I would like to keep him on fairly high-dose prednisone for now and see if we can get him started on BiPAP therapy at night and p.r.n. during the day as this may help with his EDAC and perhaps even aid pulmonary toilet with expectoration of chronic sputum. It would not surprise me if he has some form of primary ciliary dyskinesia with his chronic bronchiectasis.
[2019-01-08] MEDS: DOXEPIN 6 MG PO SCH (20:35)
--- NOTE | 2019-01-08 22:24 | Hospitalist Progress Note ---
Date of Service January 08, 2019 Assessment & Plan (1) Dyspnea on exertion: copd / bronchiectasis Bronch completed today Saturday 01/06, Given lung disease have broadened antibiotics to Cefepime for pseudomonas coverage, , solumedrol 40mg bid on 01/07, mucomyst Vibration vest, albuterol and spiriva Continuous O2 CXR neg for acute pneumonia or heart failure Flu neg Trop neg D/W pulmonary, large amount of secretions suctioned on 01/06 Awaiting cultures. Will do a trial of BIPAP. Appreciate pulmonary input. Will likely discharge in AM. Will continue to monitor. (2) Bronchiectasis: continue home meds, facilitate mucus removal with flutter valve and chest vest (3) Hypertension: fairly controlled by home bumex (4) Hypothyroid: remains clinically replete on synthroid (5) Crohn's disease in remission: mesalamine and cholestipol, he remains without symptoms (6) ADELAIDA (obstructive sleep apnea): HS O2 at baseline (7) DVT prophylaxis: SCDs may use chemoprophylaxis Spent 25 minutes in management of patient. Subjective Patient reports feeling better, he is less winded today. He states that he tate need to be on BIPAP overnight, so his discharge is held. He states he no longer has a productive cough. Patient denies fever, chills, nausea, vomiting. Physical Exam Vital Signs (Past 24 Hours): Last Vital Signs Temp 36.7 C 01/08/19 07:03 Pulse 83 01/08/19 20:14 Resp 16 01/08/19 20:14 BP 141/72 H 01/08/19 15:01 Pulse Ox 94 01/08/19 20:14 Physical Exam: The patient appeared well nourished and normally developed. Vital signs as documented. Head exam is unremarkable. normocephalic, atraumatic Neck is without jugular venous distension, thyromegaly, or lymphademopathy Lung exam shows mild rhonchi is heard Cardiac exam reveals Rhythm is regular. First and second heart sounds normal. Abdominal exam reveals normal bowel sounds, no masses, no organomegaly Extremities are nonedematous and both pedal pulses are present Neurologic exam is A&Ox3, no focal deficits, strength is equal bilateral Psychologically seems neither anxious or depressed Skin is warm Dry without bruises or lesions (1) Bronchiectasis Bronchiectasis type: with acute exacerbation Qualified Code(s): J47.1 - Bronchiectasis with (acute) exacerbation
[2019-01-09] MEDS: ALBUT/IPRATROP 3MG/0.5MG NEB 3 ML VIAL NEB SCH ×5 (00:37→16:09)
[2019-01-09] MEDS: CEFEPIME 2,000 MG in SYRINGE 7.5 ML IV SCH ×2 (02:13→10:32)
[2019-01-09] MEDS: LEVOTHYROXINE SODIUM 112 MCG TABLET PO SCH (06:04)
[2019-01-09] MEDS: ACETYLCYSTEINE 20% INHAL SOLN ***DISPENSED BY RESP. INH SCH (07:11)
[2019-01-09] MEDS: SODIUM CHLOR 7% 4 ML NEB INH SCH (07:11)
[2019-01-09] MEDS: ARFORMOTEROL TART 15MCG/2ML VIAL INH SCH ×3 (07:11→11:16)
[2019-01-09] MEDS: SODIUM CHLORIDE 0.9% 1000ML 1,000 ML IV SCH (07:15)
[2019-01-09] MEDS: BUMETANIDE 1 MG TAB PO SCH (08:02)
[2019-01-09] MEDS: POTASSIUM CHLORIDE 10 MEQ TABCR PO SCH (08:03)
[2019-01-09] MEDS: ASCORBIC ACID 500 MG TAB PO SCH (08:03)
[2019-01-09] MEDS: TIOTROPIUM BROMIDE 5 PUFF/90 MCG INH INH SCH (08:03)
[2019-01-09] MEDS: ESCITALOPRAM OXALATE 10 MG TAB PO SCH (08:04)
[2019-01-09] MEDS: CHOLECALCIFEROL 1,000 UNITS TAB PO SCH (08:04)
[2019-01-09] MEDS: MULTIVITAMIN TAB PO SCH (08:04)
[2019-01-09] MEDS: methylPREDNISolone 40 MG in SYRINGE 0 ML IV SCH ×2 (08:04→14:31)
[2019-01-09] MEDS: MESALAMINE 0.375 GM PO SCH (08:05)
[2019-01-09] MEDS: COLESTIPOL HCL 1 GM TAB PO SCH (10:32)
--- NOTE | 2019-01-09 16:40 | Progress Note ---
DATE: 01/09/2019 PULMONARY MEDICINE PROGRESS NOTE Chart reviewed, the patient examined. SUBJECTIVE: The patient feels much better. He did not tolerate BiPAP as expected last evening, so we will not make that a modality for treatment of EDAC in the future. The patient is less dyspneic, less congested, currently. I think at this time, we discharged him. He does not need any additional antibiotic as the cultures from the bronchoscopy were negative with special cultures for fungus and TB pending, although the acid fast bacilli smears were negative. Special laboratory serology is still pending at time of this dictation, although the Aspergillus galactomannan and BAL was not detected. PLAN: Would send home with utilizing the vibration vest and flutter valve with aerosolized bronchodilator and considering acetylcysteine with his neb treatments b.i.d. and we will be happy to see him in 2-3 weeks' time for followup.
[2019-01-10 14:29] LABS: Aspergillus Ag Index 0.08 (<0.50); Aspergillus Antigen, Serum Not Detected (Not Detected); Aspergillus Flavus Negative (Negative); Aspergillus Niger Negative (Negative); Rast Aspergillus fumigatus IgG 7.1 mcg/mL (<2.0)
[2019-01-11 19:15] LABS: Aureobasidium pullulans IgG 8.5 mcg/mL (< 13.6); Immunoglobulin IgE 118 KU/L (<115); Saccharopolyspora rectivir Ab Not detected (Not detected)
--- NOTE | 2019-01-14 07:49 | Discharge Summary ---
Date of Service January 09, 2019 Admission HPI Per Admitting Provider 68 y/o M c/o worsening cough and SOUZA. Pt has chronic bronchiectasis. He requires regular bronchoscopy for management of this issue. His last bronch was 11/13/18. The plan was for Q2 month scheduled bronch, which was scheduled for 01/06. Pt has been having worsening cough and SOUZA, congestion over the last 2-3 weeks however. He was seen by pulm and put on nebs and zithromax, however it has continued to worsen to the point where he cannot ambulate much at all without getting extremely SOB. He has prolonged coughing spells in which he gets SOB as well. He always feels congested. He states that he gets chest he aviness when he cannot breathe due to coughing, but no brianda chest pain and this is always associated with the feeling of not getting enough air due to coughing. He has been tolerating PO without issue. Pt denies fever, SOB, chest pain, abd pain, n/v, LE pain or swelling. Pt states he has Crohn's and therefore his bowel movements are frequently with diarrhea, although not always. He wears HS O2 but has not tried this during the day. Pt was given ceftriaxone, steroids, nebs in the ED. He states his cough is slightly less, but he feels ongoing SOB when trying to ambulate to the restroom. Principal Diagnosis COPD exacerbation with bronchiectasis Discharge Exam The patient appeared well nourished and normally developed. Vital signs as documented. Head exam is unremarkable. normocephalic, atraumatic Neck is without jugular venous distension, thyromegaly, or lymphademopathy Lung exam shows mild rhonchi is heard Cardiac exam reveals Rhythm is regular. First and second heart sounds normal. Abdominal exam reveals normal bowel sounds, no masses, no organomegaly Extremities are nonedematous and both pedal pulses are present Neurologic exam is A&Ox3, no focal deficits, strength is equal bilateral Psychologically seems neither anxious or depressed Skin is warm Dry without bruises or lesions Discharge Data Allergies Allergy/AdvReac Type Severity Reaction Status Date / Time No Known Allergies Allergy Verified 01/01/19 09:10 Consultations 01/03/19 12:58 ED Decision to Admit Stat 01/03/19 14:43 Consult Pulmonology Routine Procedures Performed Operation Date: 01/06/19 09:00 Actual Procedures p Bronchoscopy (Bilateral) - Voloydmyr Garcia MD Hospital Course (1) Dyspnea on exertion: copd / bronchiectasis Bronch completed Saturday 01/06, Given lung disease have broadened antibiotics to Cefepime for pseudomonas coverage, , solumedrol 40mg bid on 01/07, mucomyst Vibration vest, albuterol and spiriva Continuous O2 CXR neg for acute pneumonia or heart failure Flu neg Trop neg D/W pulmonary, large amount of secretions suctioned on 01/06 Awaiting cultures. Patient did not tolerate bipap.Will discharge with vibration vest and flutter valve. Will f/u with pulmonary in 1-2 weeks. Appreciate pulmonary input. (2) Bronchiectasis: continue home meds, facilitate mucus removal with flutter valve and chest vest (3) Hypertension: fairly controlled by home bumex (4) Hypothyroid: remains clinically replete on synthroid (5) Crohn's disease in remission: mesalamine and cholestipol, he remains without symptoms (6) ADELAIDA (obstructive sleep apnea): HS O2 at baseline (7) DVT prophylaxis: SCDs may use chemoprophylaxis Total Time Total Time Spent Total Time Spent (In Minutes): 41 Total Time Includes: Examination of the Patient, Discharge Planning, Medication Reconciliation and Communication With Other Providers Discharge Plan Discharge Items Patient Disposition: Home - Self-Care Reason For Visit: SOUZA Discharge Diagnosis: cylindrical chronic bronchiectasis Discharge Goals: Improve disease control Activity: Resume your previous activity Non-emergency contact: Primary Care Provider and Urban Planning Professor Call non-emergency contact if: you have any medication questions Follow-up/Referrals: Volodymyr Garcia MD [Physician] - 01/20/19 10:30 am (follow up appointment with your lung doctor and for evaluation of pulmonary rehab) Jocelyne Cook [Primary Care Provider] - 01/16/19 10:50 am (follow up appointment with your primary care physician) Diet: Heart Healthy Addtl Provider Instructions: Will recommend pulmonary rehab. Ok to resume pulmonary rehab. Followup with PCP in 1 week. Followup with pulmonary in 1-2 weeks Prescriptions: New Brovana 15 mcg/2 mL Solution For Nebulization 15 mcg inhalation BIDR Qty: 120 RF: 0 prednisone 10 mg tablet 10 mg PO UD Qty: 20 RF: 0 azithromycin 250 mg tablet 250 mg PO .mwf 10 Days RF: 0 Continued multivitamin Tablet 1 tab PO DAILY RF: 0 potassium chloride 10 mEq capsule, extended release 20 meq PO DAILY RF: 0 loperamide 2 mg Capsule 2 mg PO Q3H PRN (Reason: Diarrhea) RF: 0 ascorbic acid (vitamin C) [Vitamin C] 500 mg Tablet 500 mg PO DAILY RF: 0 benzonatate 100 mg capsule 200 mg PO TID PRN (Reason: Cough) RF: 0 bumetanide 1 mg tablet 1 mg PO DAILY RF: 0 vitamin B complex Tablet 1 tab PO DAILY RF: 0 albuterol sulfate 90 mcg/actuation HFA aerosol inhaler 2 puff Inhalation Q4H PRN (Reason: Shortness Of Breath) RF: 0 colestipol 1 gram tablet 1 g PO BID RF: 0 levothyroxine 112 mcg tablet 112 mcg PO DAILY RF: 0 escitalopram oxalate 10 mg tablet 10 mg PO DAILY RF: 0 Spiriva with HandiHaler 18 mcg Capsule, W/Inhalation Device 1 cap INHALATION DAILY RF: 0 mesalamine 0.375 gram capsule,extended release 24hr 0.375 g PO DAILY RF: 0 cholecalciferol (vitamin D3) [Vitamin D3] 1,000 unit Tablet,Chewable 1,000 unit PO DAILY RF: 0 doxepin 6 mg tablet 3 mg PO HS RF: 0 sodium chloride 7 % solution for nebulization 4 ml inhalation BID RF: 0 albuterol sulfate [ProAir HFA] 90 mcg/actuation Hfa Aerosol Inhaler 1 puff INHALATION Q6H PRN (Reason: Shortness Of Breath) RF: 0 Discontinued azithromycin 250 mg tablet 250 mg PO DAILY RF: 0 Stand-Alone Forms: [facility] Discharge Orders: Discharge Order (Routine); Ordered 01/09/19 Ordered By: Richard Damico Admission Data Admit Date/Time: 01/03/19 13:42 Attending Provider: Richard Damico Admit Provider: Ashley Ayala Primary Care Provider: Jocelyne oCok Other Providers: Ashley Ayala ; Volodymyr Garcia Service: Medical Other Interventions: Discharge Summary Assessment (RN) Last Done: 01/09/19 15:16 DC Date/Time DO NOT enter until pt leaves facility: 01/09/19 16:25
== END 2019-01-09 16:25 | disposition home or self-care (01) | DRG 167 ==
LOC: ED 11:38 → SUATTDRO 13:42 → 2N 13:42

== ENCOUNTER 2022-09-10 00:43 | Inpatient (IN) ==
[2022-09-10] MEDS ORDERED: SODIUM CHLORIDE 0.9% 1000ML 1,000 ML IV ONE (00:56)
[2022-09-10] MEDS ORDERED: fentaNYL citrate 100 MCG/2 ML VIAL IV STA ×3 (00:56→03:43)
--- NOTE | 2022-09-10 01:07 | Emergency Department Note ---
History of Present Illness General Chief complaint: Abdominal Pain Stated complaint: ABD PAIN Time Seen by Provider: 09/10/22 00:49 History of Present Illness Maximum Pain Intensity: 9 71-year-old male presents emergency department with a 14-hour history of diffuse abdominal pain now in the midepigastrium. Patient states that he has had episodes of nausea and vomiting. Patient states that the pain is worsening he rates the pain is moderate located midepigastrium with radiation diffusely in his abdomen. Patient denies back pain. Patient denies fever. Patient denies any recent trauma or infection. There are no other mitigating or alleviating factors Home Medications Medication Instructions Recorded Confirmed Type ascorbic acid (vitamin C) 500 mg 500 mg PO QAM 09/01/18 09/10/22 History tablet (Vitamin C) cholecalciferol (vitamin D3) 25 1,000 unit PO QAM 09/01/18 09/10/22 History mcg (1,000 unit) chewable tablet (Vitamin D3) colestipol 1 gram tablet 1 g PO BID 09/01/18 09/10/22 History levothyroxine 112 mcg tablet 112 mcg PO QAM 09/01/18 09/10/22 History loperamide 2 mg capsule 2 mg PO BID 09/01/18 09/10/22 History multivitamin 1 tab PO QAM 09/01/18 09/10/22 History vitamin B complex 1 tab PO QAM 09/01/18 09/10/22 History albuterol sulfate 2.5 mg/3 mL 2.5 mg inhalation Q4H PRN 04/30/19 09/10/22 History (0.083 %) solution for nebulization shortness of breath or wheezing #1 mL clotrimazole-betamethasone 1 1 appln topical BID PRN Rash 04/30/19 09/10/22 History %-0.05 % topical cream mesalamine 0.375 gram 1.5 g PO QAM 04/30/19 09/10/22 History capsule,extended release 24 hr vedolizumab 300 mg intravenous See Rx Instructions IV .COMPLEX 03/08/20 09/10/22 History solution (Entyvio) hydroxyzine HCl 25 mg tablet 25 mg PO BID PRN ANXIETY/SLEEP 09/16/21 09/10/22 History trazodone 50 mg tablet 50 mg PO HS 09/16/21 09/10/22 History finasteride 5 mg tablet 5 mg PO DAILY #90 tabs 03/02/22 09/10/22 Rx budesonide-formoterol HFA 160 1 inh inhalation BID #10.2 grams 07/10/22 09/10/22 Rx mcg-4.5 mcg/actuation aerosol inhaler (Symbicort) benralizumab 30 mg/mL subcutaneous See Rx Instructions .Route 07/28/22 09/10/22 Rx syringe (Fasenra) .COMPLEX #1 ea albuterol sulfate 90 mcg/actuation 1 puff inhalation Q6H PRN 08/28/22 09/10/22 Rx aerosol inhaler (ProAir HFA) Shortness Of Breath #8.5 grams potassium chloride 10 mEq 10 meq PO QAM 09/10/22 09/10/22 History capsule,extended release Allergies Allergy/AdvReac Type Severity Reaction Status Date / Time No Known Allergies Allergy Verified 09/10/22 01:45 Past Med/Surg History Medical History Bibasilar crackles Bronchiectasis COPD (chronic obstructive pulmonary disease) inhaler/nebulizer prn Crohns disease Diastolic heart failure History of melanoma Hypertension Hypothyroid Severe persistent asthma Surgical History History of bilateral cataract extraction History of bronchoscopy multiple History of cardiac catheterization 03/2017 @ [facility] with Dr. Teague--NO stents History of colonoscopy with polypectomy History of melanoma excision above right eye History of tonsillectomy History of tooth extraction all lower teeth/partial upper Hx of vasectomy Family History Other Hypertension No family history of adverse response to anesthesia No significant family history Denies family history of Myocardial infarction Stroke Social History Smoking Status: Former smoker Age Started Using Tobacco: 17; Age Quit Using Tobacco: 50; Second Hand Exposure: Yes (parents smoked); Hx Alcohol Use: Yes Alcohol type: hard liquor Alcohol Intake Frequency Comment: 1x per month, 1-3 drinks per sitting Hx Substance Use: No Preferred Language: Ecuadorean Communication Ability: Effective Visual Impairment: No Limitations Hearing Ability: Normal 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 Beliefs That Will Affect Care: None Current Living Situation: Spouse and Family Current Living Situation Comment: Lives with and stepson Feels Safe at Home: Yes Assistive Devices: Denture - Upper, Denture - Lower, Glasses and Nebulizer Review of Systems A total of 10 systems reviewed and were otherwise negative Constitutional: no fever Ear, Nose, Mouth, Throat: no ear pain Cardiovascular: no chest pain Gastrointestinal: + abdominal pain, + bloating, + nausea and + vomiting Physical Exam Vital Signs Vital Signs - 24 hr 09/10/22 00:44 09/10/22 01:19 09/10/22 02:04 Temperature 36.1 C L Temperature Source Temporal Artery Scan Pulse Rate 70 58 L Pulse Rate [Apical] 55 L Pulse Rate from SpO2 Sensor Pulse Rhythm Regular Regular Pulse Rhythm [Apical] Regular Pulse Strength Normal Respiratory Rate 24 24 14 Respiratory Effort / Characteristics Non-Labored Non-Labored Spontaneous Respiratory Depth Normal Normal Blood Pressure 154/76 H Blood Pressure [Right Arm] 153/82 H Blood Pressure Mean 102 Blood Pressure Mean [Right Arm] 105 Blood Pressure Position Sitting Pulse Oximetry 95 94 96 Oxygen Delivery Method Room Air Room Air Nasal Cannula Oxygen Flow Rate 2 Sepsis Recent Fever Within 48 Hours No Sepsis New/Unexplained Change in Mental Status No Sepsis Action Taken by Nursing No Action Required 09/10/22 02:37 Temperature Temperature Source Pulse Rate 61 Pulse Rate [Apical] Pulse Rate from SpO2 Sensor 60 Pulse Rhythm Pulse Rhythm [Apical] Pulse Strength Respiratory Rate 19 Respiratory Effort / Characteristics Respiratory Depth Blood Pressure 166/77 H Blood Pressure [Right Arm] Blood Pressure Mean 106 Blood Pressure Mean [Right Arm] Blood Pressure Position Pulse Oximetry 96 Oxygen Delivery Method Oxygen Flow Rate Sepsis Recent Fever Within 48 Hours Sepsis New/Unexplained Change in Mental Status Sepsis Action Taken by Nursing GENERAL: Patient is awake alert in an apparent pain EYES: The conjunctivae are clear. The pupils are round and reactive. EARS, NOSE, MOUTH AND THROAT: The nose is without any evidence of any deformity. Mucous membranes are moist. Tongue is midline. NECK: The neck is nontender and supple. RESPIRATORY: Normal respiratory effort is noted there is no evidence of wheezing rhonchi or rales CARDIOVASCULAR: Regular rate and rhythm noted there no murmurs rubs or gallops normal S1 normal S2. GASTROINTESTINAL: The abdomen is soft. Abdomen is distended there is decreased bowel sounds in all 4 quadrants there is tympany present, there is tenderness with palpation in the midepigastrium. There is no abnormal aortic pulsations or masses palpated. PELVIS: The Pelvis is stable. No tenderness to palpation is noted. BACK: No midline tenderness or or step-off noted range of motion in flexion extension as well as rotation no signs of muscle spasm noted MUSCULOSKELETAL/EXTREMITIES: There is no evidence of gross deformity full range of motion is noted in the hips and shoulders. SKIN: There is no obvious evidence of any rash. There are no petechiae, pallor or cyanosis noted. NEUROLOGIC: Patient is awake alert and oriented x3 strength is symmetric Course Reevaluation(s) Reevaluation #1: Patient complained of abdominal pain received IV fluids IV antibiotics and IV opiates multiple times. Patient was found to have a small bowel obstruction. The case was [facility] the surgical team [facility] Time: 04:20 Consultations Consultation #1: Vinayak from surgery, recommends IV fluids pain medicine and an NG tube, will see in consultation Time: 04:05 [facility]: 04:20 Administered Medications Discontinued Medications Fentanyl Citrate (Fentanyl Citrate 100 Mcg/2 Ml Vial) 50 mcg IV NOW STA Stop: 09/10/22 00:57 Last Admin: 09/10/22 01:14 Dose: 50 mcg Documented By: RUBÉN Fentanyl Citrate (Fentanyl Citrate 100 Mcg/2 Ml Vial) 50 mcg IV NOW STA Stop: 09/10/22 01:21 Last Admin: 09/10/22 01:30 Dose: 50 mcg Documented By: RUBÉN Fentanyl Citrate (Fentanyl Citrate 100 Mcg/2 Ml Vial) 50 mcg IV NOW STA Stop: 09/10/22 03:44 Last Admin: 09/10/22 03:48 Dose: 50 mcg Documented By: STEPH Sodium Chloride (Nss 1000ml) 1,000 mls @ 999 mls/hr IV .Q1H1M ONE Stop: 09/10/22 01:56 Last Infusion: 09/10/22 02:43 Dose: 0 mls/hr Documented By: Admin: 09/10/22 01:14 Dose: 999 mls/hr Documented By: RUBÉN Ioversol (Optiray 350 100ml) 89 ml IV ONCE ONE Stop: 09/10/22 02:28 Last Admin: 09/10/22 02:28 Dose: 89 ml Documented By: JIMMIE Medical Decision Making Medical Records Attestation: I reviewed the patient's medical records. Home Medications Current Medication List: was personally reviewed by me Laboratory Data Attestation: I reviewed the patient's lab results. Result diagrams: 09/10/22 01:10 09/10/22 01:10 Lab Results 09/10/22 09/10/22 09/10/22 Range/Units 01:10 01:10 01:10 WBC 20.23 H (4.8-10.8) K/ul RBC 5.28 (4.63-6.08) M/uL Hgb 15.9 (14.0-18.0) g/dl Hct 46.4 (40.1-51.0) % MCV 87.9 (80.0-100.0) fL MCH 30.1 (25.0-34.0) pg MCHC 34.3 (32.0-36.0) g/dL RDW Std Deviation 44.0 (36.4-46.3) fL RDW Coeff of Ryan 13.7 (11.5-14.5) % Plt Count 427 H (130-400) K/uL MPV 10.7 (9.4-12.4) fL Immature Gran % (Auto) 0.3 % Neut % (Auto) 85.2 % Lymph % (Auto) 7.7 % Putnam % (Auto) 6.6 % Eos % (Auto) 0.0 % Baso % (Auto) 0.2 % Neut # (Auto) 17.23 H (1.4-6.5) K/uL Lymph # (Auto) 1.56 (1.2-3.4) K/uL Putnam # (Auto) 1.33 H (0.24-0.82) K/uL Eos # (Auto) 0.00 (0-0.50) K/uL Baso # (Auto) 0.04 (0-0.2) K/uL Immature Gran # (Auto) 0.07 H (0.00-0.02) K/uL PT 11.5 (9.0-12.0) Seconds INR 1.1 (0.9-1.1) Sodium 135 L (136-145) mmol/L Potassium 4.1 (3.5-5.1) mmol/L Chloride 99 (98-107) mmol/L Carbon Dioxide 22 (21-32) mmol/L Anion Gap 14 H (3-11) BUN 18 (6-23) mg/dl Creatinine 0.86 (0.6-1.4) mg/dl Est Cr Clr Drug Dosing 96.2 ml/min Est GFR ( Amer) 101.1 ml/min Est GFR (Non-Af Amer) 87.2 ml/min BUN/Creatinine Ratio 20.9 H (10-20) Glucose 173 H (70-99(Fasting)) mg/dl Calcium 9.5 (8.5-10.1) mg/dl Total Bilirubin 1.4 H (0.2-1.0) mg/dl AST 30 (13-39) U/L ALT 32 (7-52) U/L Alkaline Phosphatase 73 (34-104) U/L Troponin I High Sens (0-20) pg/ml Total Protein 7.6 (6.0-8.3) gm/dl Albumin 4.4 (3.4-5.0) gm/dl Globulin 3.2 (2.5-4.0) gm/dl Albumin/Globulin Ratio 1.4 (0.9-2) Lipase 15 (11-82) U/L SARS-CoV-2, RNA, NAAT (NEGATIVE) 09/10/22 09/10/22 Range/Units 01:10 02:09 WBC (4.8-10.8) K/ul RBC (4.63-6.08) M/uL Hgb (14.0-18.0) g/dl Hct (40.1-51.0) % MCV (80.0-100.0) fL MCH (25.0-34.0) pg MCHC (32.0-36.0) g/dL RDW Std Deviation (36.4-46.3) fL RDW Coeff of Ryan (11.5-14.5) % Plt Count (130-400) K/uL MPV (9.4-12.4) fL Immature Gran % (Auto) % Neut % (Auto) % Lymph % (Auto) % Putnam % (Auto) % Eos % (Auto) % Baso % (Auto) % Neut # (Auto) (1.4-6.5) K/uL Lymph # (Auto) (1.2-3.4) K/uL Putnam # (Auto) (0.24-0.82) K/uL Eos # (Auto) (0-0.50) K/uL Baso # (Auto) (0-0.2) K/uL Immature Gran # (Auto) (0.00-0.02) K/uL PT (9.0-12.0) Seconds INR (0.9-1.1) Sodium (136-145) mmol/L Potassium (3.5-5.1) mmol/L Chloride (98-107) mmol/L Carbon Dioxide (21-32) mmol/L Anion Gap (3-11) BUN (6-23) mg/dl Creatinine (0.6-1.4) mg/dl Est Cr Clr Drug Dosing ml/min Est GFR ( Amer) ml/min Est GFR (Non-Af Amer) ml/min BUN/Creatinine Ratio (10-20) Glucose (70-99(Fasting)) mg/dl Calcium (8.5-10.1) mg/dl Total Bilirubin (0.2-1.0) mg/dl AST (13-39) U/L ALT (7-52) U/L Alkaline Phosphatase (34-104) U/L Troponin I High Sens 7.7 (0-20) pg/ml Total Protein (6.0-8.3) gm/dl Albumin (3.4-5.0) gm/dl Globulin (2.5-4.0) gm/dl Albumin/Globulin Ratio (0.9-2) Lipase (11-82) U/L SARS-CoV-2, RNA, NAAT NEGATIVE (NEGATIVE) ECG Data Attestation: I personally reviewed and interpreted this ECG as follows: Additional Comments: EKG interpreted by me sinus bradycardia rate of 59 normal intervals normal axis no obvious ST segment elevation or depression MDM Narrative Medical decision making differential diagnosis includes gastritis gastroenteritis pancreatitis cholelithiasis cholecystitis biliary colic bowel obstruction. And is to check labs, CT abdomen pelvis, IV fluids given and pain medicine. Impression & Plan SBO (small bowel obstruction), Leukocytosis, Cholelithiasis Discharge Plan Visit Data Chief Complaint: Abdominal Pain Stated Complaint: ABD PAIN ED Provider: Henrique Solares Discharge Problem: SBO (small bowel obstruction), Leukocytosis, Cholelithiasis Patient Disposition: Being Evaluated by Hospitalist Forms Stand Alone Forms: My [facility] [employer] Prescriptions Prescriptions: No Action Fasenra 30 mg/mL syringe See Rx Instructions .ROUTE .COMPLEX Qty: 1 11RF Dose Instruction: INJECT 30 MG (ONE SYRINGE) SUBCUTANEOUSLY (UNDER THE SKIN) EVERY 8 WEEKS Rx Instructions: INJECT 30 MG (ONE SYRINGE) SUBCUTANEOUSLY (UNDER THE SKIN) EVERY 8 WEEKS APPROVED GOOD 07/20/22 - 07/19/23 Case - [id number] albuterol sulfate [ProAir HFA] 90 mcg/actuation HFA aerosol inhaler 1 puff INHALATION Q6H PRN (Reason: Shortness Of Breath) Qty: 8.5 3RF Entyvio 300 mg recon soln See Rx Instructions IV .COMPLEX Rx Instructions: IV every 8 weeks; trazodone 50 mg tablet 50 mg PO HS hydroxyzine HCl 25 mg tablet 25 mg PO BID PRN (Reason: ANXIETY/SLEEP) budesonide-formoterol [Symbicort] 160-4.5 mcg/actuation HFA aerosol inhaler 1 inh inhalation BID Qty: 10.2 6RF finasteride 5 mg tablet 5 mg PO DAILY Qty: 90 3RF albuterol sulfate 2.5 mg /3 mL (0.083 %) solution for nebulization 2.5 mg inhalation Q4H PRN (Reason: shortness of breath or wheezing) Qty: 1 mesalamine 0.375 gram capsule,extended release 24hr 1.5 g PO QAM Rx Instructions: TAKES 4 TABS. clotrimazole-betamethasone 1-0.05 % cream 1 appln topical BID PRN (Reason: Rash) multivitamin Tablet 1 tab PO QAM loperamide 2 mg Capsule 2 mg PO BID ascorbic acid (vitamin C) [Vitamin C] 500 mg Tablet 500 mg PO QAM vitamin B complex Tablet 1 tab PO QAM colestipol 1 gram tablet 1 g PO BID levothyroxine 112 mcg tablet 112 mcg PO QAM cholecalciferol (vitamin D3) [Vitamin D3] 1,000 unit Tablet,Chewable 1,000 unit PO QAM potassium chloride 10 mEq capsule, extended release 10 meq PO QAM Referrals Referrals: Jocelyne Cook [Primary Care Provider] -
[2022-09-10 01:31] LABS: Basophils # (auto) 0.04 K/uL (0-0.2); Basophils % (auto) 0.2 %; Hematocrit (blood only) 46.4 % (40.1-51.0); Hemoglobin 15.9 g/dl (14.0-18.0); Immature Granulocytes # (auto) 0.07 K/uL (0.00-0.02); Immature Granulocytes % (auto) 0.3 %; Lymphocytes # (auto) 1.56 K/uL (1.2-3.4); Lymphocytes % (auto) 7.7 %; Mean Corpuscular Hemoglobin 30.1 pg (25.0-34.0); Mean Corpuscular Hgb Conc 34.3 g/dL (32.0-36.0); Mean Corpuscular Volume 87.9 fL (80.0-100.0); Mean Platelet Volume 10.7 fL (9.4-12.4); Monocytes # (auto) 1.33 K/uL (0.24-0.82); Monocytes % (auto) 6.6 %; Neutrophils # (auto) 17.23 K/uL (1.4-6.5); Neutrophils % (auto) 85.2 %; Platelet Count 427 K/uL (130-400); RDW Coefficient of Variation 13.7 % (11.5-14.5); Red Blood Count 5.28 M/uL (4.63-6.08); White Blood Count 20.23 K/ul (4.8-10.8)
[2022-09-10 01:42] LABS: INR 1.1 (0.9-1.1); Prothrombin Time 11.5 Seconds (9.0-12.0)
[2022-09-10 01:55] LABS: Albumin Globulin Ratio 1.4 (0.9-2); Albumin Level 4.4 gm/dl (3.4-5.0); BUN Creatinine Ratio 20.9 (10-20); Bilirubin,Total 1.4 mg/dl (0.2-1.0); Calcium 9.5 mg/dl (8.5-10.1); Creatinine Clr Calc Pharmacy 96.2 ml/min; Est GFR (African American) 101.1 ml/min; Est GFR (Non-African American) 87.2 ml/min; Globulin 3.2 gm/dl (2.5-4.0); Potassium 4.1 mmol/L (3.5-5.1); Total Protein 7.6 gm/dl (6.0-8.3)
[2022-09-10] MEDS ORDERED: OPTIRAY 350 100ml IV ONE (02:27)
[2022-09-10] MEDS ORDERED: PIPERACILLIN/TAZOBACTAM 4.5 GM/120 ML BAG IV ONE (03:58)
--- NOTE | 2022-09-10 04:21 | Surgery Consultation ---
Date of Consultation September 10, 2022 Assessment & Plan (1) Small bowel obstruction: I discussed with the treating emergency room physician and he is having medicine admit the patient to the hospital. From a surgical perspective we recommend proceeding as follows: Due to the patient's history of Crohn's disease there is concern that his underlying symptomatology may be related to this disease process and therefore we recommend obtaining a GI consultation. We will defer to medicine and gastroenterology if any steroids will be required. I would be concerned that the Crohn's disease may be at play here as the patient has not had any prior abdominal surgeries that would have resulted in any adhesions or scar tissue. Patient is noted to have some abdominal distention and due to his level of pain I would recommend placing an NG tube. I did discuss this with the patient and he is agreeable to this. The treating emergency room physician has ordered this modality Recommended providing IV fluid for hydration Recommend providing analgesics Recommend providing antiemetics Recommend following serial labs We will continue to follow along with the patient is hospitalized Supervising Physician Co-Signing Physician Notes Patient seen and examined, labs and image reviewed, agree with above. 71-year-old male with history of Crohn's disease presented with abdominal discomfort. CT showed a long segment of terminal ileum inflammation with partial obstruction. This is most consistent with Crohn's disease. On exam he is afebrile with stable vitals. His abdomen is soft. He has passed some flatus and his belly feels better. WBC [address] personally viewed and interpreted by myself and agree with assessment of likely Crohn's disease. Recommend GI consult. No surgical intervention at this time. We will continue NG for now. History of Present Illness Reason for Consultation: Small bowel obstruction History of Present Illness This is a 71-year-old male who presented to [facility] emergency department secondary abdominal pain that began at approximately 10:00 AM on 09/09/2022. Patient did not seek medical attention as he thought that the pain would improve but it has persisted since that time. He has had associated nausea and vomiting with his most recent emesis at approximately 8:00 PM on 09/09/2022. Patient notes that the pain is primary located in the periumbilical area without any radiation. He notes that the only palliating factors were medicines that were administered in the emergency department. He denies any provocative factors. He denies any prior history of abdominal surgeries. He does have a history of Crohn's disease that he feels was diagnosed in 2004. The patient does take various medications for his Crohn's disease and he says he has been compliant with these medications. In addition the patient says that he has had a colonoscopy most recently 2 years ago and to the best of his knowledge there is no significant pathology noted on the study. I did asked the patient if he has been experiencing postprandial pain over the past several weeks which he denied. In addition, the patient reports that he did have a bowel movement yesterday which was normal for him. He has not had a bowel movement since that time. He also has not been passing any flatus since presentation to the emergency department. In the emergency department the patient had labs and imaging which I independently reviewed. The patient underwent a CT scan of the abdomen and pelvis which showed diffuse fluid-filled and mildly dilated small bowel proximal to the terminal ileum. There is a small amount of mesenteric edema. There is no pneumatosis or mesenteric gas. The interpreting radiologist felt that this represented a partial versus an early high-grade small bowel obstruction. Patient was also noted to have cholelithiasis noted on the study. Labs include a CBC her white blood cell count was 20.2. Hemoglobin, hematocrit, were both normal. Platelet count was 427,000. Chemistry profile showed sodium was 135. Potassium was normal. BUN and creatinine were both noted to be normal. He had a slight elevation of his total bilirubin at 1.4. Transaminases and alkaline phosphatase along with lipase were normal. A COVID test was negative. In the emergency department the patient did receive a total of 150 mcg of fentanyl with some alleviation of his pain. He has been hydrated with 1 L of normal saline solution and given antibiotics in the form of Zosyn. At the time of my interview the patient did have some abdominal pain but he was in no distress. Allergies Allergy/AdvReac Type Severity Reaction Status Date / Time No Known Allergies Allergy Verified 09/10/22 01:45 Home Medications Medication Instructions Recorded Confirmed Type ascorbic acid (vitamin C) 500 mg 500 mg PO QAM 09/01/18 09/10/22 History tablet (Vitamin C) cholecalciferol (vitamin D3) 25 1,000 unit PO QAM 09/01/18 09/10/22 History mcg (1,000 unit) chewable tablet (Vitamin D3) colestipol 1 gram tablet 1 g PO BID 09/01/18 09/10/22 History levothyroxine 112 mcg tablet 112 mcg PO QAM 09/01/18 09/10/22 History loperamide 2 mg capsule 2 mg PO BID 09/01/18 09/10/22 History multivitamin 1 tab PO QAM 09/01/18 09/10/22 History vitamin B complex 1 tab PO QAM 09/01/18 09/10/22 History albuterol sulfate 2.5 mg/3 mL 2.5 mg inhalation Q4H PRN 04/30/19 09/10/22 History (0.083 %) solution for nebulization shortness of breath or wheezing #1 mL clotrimazole-betamethasone 1 1 appln topical BID PRN Rash 04/30/19 09/10/22 History %-0.05 % topical cream mesalamine 0.375 gram 1.5 g PO QAM 04/30/19 09/10/22 History capsule,extended release 24 hr vedolizumab 300 mg intravenous See Rx Instructions IV .COMPLEX 03/08/20 09/10/22 History solution (Entyvio) hydroxyzine HCl 25 mg tablet 25 mg PO BID PRN ANXIETY/SLEEP 09/16/21 09/10/22 History trazodone 50 mg tablet 50 mg PO HS 09/16/21 09/10/22 History finasteride 5 mg tablet 5 mg PO DAILY #90 tabs 03/02/22 09/10/22 Rx budesonide-formoterol HFA 160 1 inh inhalation BID #10.2 grams 07/10/22 09/10/22 Rx mcg-4.5 mcg/actuation aerosol inhaler (Symbicort) benralizumab 30 mg/mL subcutaneous See Rx Instructions .Route 07/28/22 09/10/22 Rx syringe (Fasenra) .COMPLEX #1 ea albuterol sulfate 90 mcg/actuation 1 puff inhalation Q6H PRN 08/28/22 09/10/22 Rx aerosol inhaler (ProAir HFA) Shortness Of Breath #8.5 grams potassium chloride 10 mEq 10 meq PO QAM 09/10/22 09/10/22 History capsule,extended release Patient History Medical History Bibasilar crackles Bronchiectasis COPD (chronic obstructive pulmonary disease) inhaler/nebulizer prn Crohns disease Diastolic heart failure History of melanoma Hypertension Hypothyroid Severe persistent asthma Surgical History History of bilateral cataract extraction History of bronchoscopy multiple History of cardiac catheterization 03/2017 @ [facility] with Dr. Teague--NO stents History of colonoscopy with polypectomy History of melanoma excision above right eye History of tonsillectomy History of tooth extraction all lower teeth/partial upper Hx of vasectomy Family History Other Hypertension No family history of adverse response to anesthesia No significant family history Denies family history of Myocardial infarction Stroke Social History Smoking Status: Former smoker Age Started Using Tobacco: 17; Age Quit Using Tobacco: 50; Smoking End Date: 20 years ago; Second Hand Exposure: No; Do You Dip or Chew Tobacco: No; Hx Alcohol Use: Yes Alcohol type: hard liquor Alcohol Intake Frequency Comment: 1x per month, 1-3 drinks per sitting Hx Substance Use: No Preferred Language: Cameroonian Communication Ability: Effective Visual Impairment: No Limitations Hearing Ability: Normal 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 Required: No Beliefs That Will Affect Care: None Current Living Situation: Spouse Current Living Situation Comment: Lives with and stepson Other Information That Helps Us Care for You: No Feels Safe at Home: Yes Safety Concerns: Feels Safe At This Time Assistive Devices: Denture - Upper, Denture - Lower and Glasses Assistive Devices Comment: glasses here, dentures at home Review of Systems Constitutional: no fever and no chills Eyes: no eye pain Ear, Nose, Mouth, Throat: no ear pain Respiratory: no cough and no dyspnea Cardiovascular: no chest pain Gastrointestinal: + abdominal pain, + nausea and + vomiting Genitourinary: no dysuria Musculoskeletal: no back pain Integumentary: no rash Neurologic: no localized weakness Physical Exam Constitutional: WD/WN, vitals as above Eyes: no conjunctival abnormality ENMT: Ears: no hearing impairment and no external ear abnormality Mouth: no oropharynx abnormality Neck: trachea midline Respiratory: normal respiratory effort; no respiratory distress and no labored breathing Cardiovascular: Rate/Rhythm: regular rate and regular rhythm Gastrointestinal (Abdomen): Abdomen is mildly distended but soft and nonrigid. Bowel sounds are present. Patient did have pain with palpation in the periumbilical area. There was some slight pain with palpation of the right upper quadrant but negative Sexton sign. There is no rebound tenderness or guarding. Musculoskeletal: No calf tenderness Skin: no rashes Neurologic: moves all extremities Psychiatric: A+Ox3, euthymic affect Results & Data ([facility]) Vital Signs (Past 12 Hours) Vital Signs Temp Pulse Pulse Resp BP BP Pulse Ox 09/10/22 02:37 61 19 166/77 H 96 09/10/22 02:04 55 L 14 153/82 H 96 09/10/22 01:19 58 L 24 94 09/10/22 00:44 36.1 C L 70 24 154/76 H 95 O2 Del Method O2 Flow Rate 09/10/22 02:37 09/10/22 02:04 Nasal Cannula 2 09/10/22 01:19 Room Air 09/10/22 00:44 Room Air PG Care Time/CCT Total # of Minutes Spent Total Time Spent with Patient: Total time spent is greater than 50% in coordination of care (as documented) at patient's floor/unit and/or counseling patient: Coding Level of Care Code 63453 Inpt Consult Level 5 Diagnoses Small bowel obstruction K56.609
--- NOTE | 2022-09-10 04:30 | History & Physical Report ---
Date of Service September 10, 2022 Assessment & Plan (1) Small bowel obstruction: Plan: José Luis Boone is a 71-year-old male with past medical history of Crohn's disease, COPD, BPH with LUTS, anxiety, hypothyroidism who presented due to abdominal pain. Found to have a SBO. SBO in the setting of Crohn's disease CT abdomen demonstrating partial versus early high-grade SBO N.p.o. NG tube placed in ED to [facility] General surgery consult Gastroenterology consult due to history of Crohn's Antiemetics and analgesics as needed LR at 80 cc/h Received Zosyn 4.5 g x 1 in ED continue for now in the setting of elevated white count, blood cultures drawn and pending Admit to [facility] Crohn's disease As above, consult gastro Hold mesalamine while n.p.o. COPD Continue home inhaler regimen BPH with LUTS Hold finasteride Anxiety/insomnia Hold hydroxyzine, trazodone DVT prophylaxis: Lovenox SQ FEN GI: N.p.o., LR at 80 cc/h Dispo: Admit to [facility] CODE STATUS: Full (2) COPD (chronic obstructive pulmonary disease): (3) BPH loc w urin obs/LUTS: (4) Hypertension: (5) Hypothyroid: (6) Crohns disease: History of Present Illness Primary Care Provider: Jocelyne Cook José Luis Boone is a 71-year-old male with past medical history of Crohn's disease, COPD, BPH with LUTS, anxiety, hypothyroidism who presented due to ab dominal pain that started yesterday morning. His pain is located primarily in the epigastric/periumbilical area and was associated with nausea and vomiting. Last emesis was last night. He does not have a history of abdominal surgeries. Last colonoscopy 2 years ago. Last bowel movement was yesterday morning and he considered it to be normal. He denies bloody/dark stools, unexpected weight loss, fever, chills, chest pain, palpitations, shortness of breath, urinary symptoms, headache, dizziness, weakness, numbness. Work-up in the ED significant for CT abdomen showing partial versus early high- grade small bowel obstruction (see stat rad read for further details). Lab work showing white count of 20.23, platelet count of 427, sodium 135, mild T bili elevation to 1.4, normal lipase, normal troponin. He received fentanyl 50 mcg x 3, normal saline bolus 1 L x 1, Zosyn 4.5 g x 1. He was made NPO and NG tube was placed per Gen Surg recommendation. Allergies Allergy/AdvReac Type Severity Reaction Status Date / Time No Known Allergies Allergy Verified 09/10/22 01:45 Home Medications Medication Instructions Recorded Confirmed Type ascorbic acid (vitamin C) 500 mg 500 mg PO QAM 09/01/18 09/10/22 History tablet (Vitamin C) cholecalciferol (vitamin D3) 25 1,000 unit PO QAM 09/01/18 09/10/22 History mcg (1,000 unit) chewable tablet (Vitamin D3) colestipol 1 gram tablet 1 g PO BID 09/01/18 09/10/22 History levothyroxine 112 mcg tablet 112 mcg PO QAM 09/01/18 09/10/22 History loperamide 2 mg capsule 2 mg PO BID 09/01/18 09/10/22 History multivitamin 1 tab PO QAM 09/01/18 09/10/22 History vitamin B complex 1 tab PO QAM 09/01/18 09/10/22 History albuterol sulfate 2.5 mg/3 mL 2.5 mg inhalation Q4H PRN 04/30/19 09/10/22 History (0.083 %) solution for nebulization shortness of breath or wheezing #1 mL clotrimazole-betamethasone 1 1 appln topical BID PRN Rash 04/30/19 09/10/22 History %-0.05 % topical cream mesalamine 0.375 gram 1.5 g PO QAM 04/30/19 09/10/22 History capsule,extended release 24 hr vedolizumab 300 mg intravenous See Rx Instructions IV .COMPLEX 03/08/20 09/10/22 History solution (Entyvio) hydroxyzine HCl 25 mg tablet 25 mg PO BID PRN ANXIETY/SLEEP 09/16/21 09/10/22 History trazodone 50 mg tablet 50 mg PO HS 09/16/21 09/10/22 History finasteride 5 mg tablet 5 mg PO DAILY #90 tabs 03/02/22 09/10/22 Rx budesonide-formoterol HFA 160 1 inh inhalation BID #10.2 grams 10/10/22 12/11/22 Rx mcg-4.5 mcg/actuation aerosol inhaler (Symbicort) benralizumab 30 mg/mL subcutaneous See Rx Instructions .Route 07/28/22 09/10/22 Rx syringe (Fasenra) .COMPLEX #1 ea albuterol sulfate 90 mcg/actuation 1 puff inhalation Q6H PRN 08/28/22 09/10/22 Rx aerosol inhaler (ProAir HFA) Shortness Of Breath #8.5 grams potassium chloride 10 mEq 10 meq PO QAM 09/10/22 09/10/22 History capsule,extended release Past Med/Surg History Medical History Bibasilar crackles Bronchiectasis COPD (chronic obstructive pulmonary disease) inhaler/nebulizer prn Crohns disease Diastolic heart failure History of melanoma Hypertension Hypothyroid Severe persistent asthma Surgical History History of bilateral cataract extraction History of bronchoscopy multiple History of cardiac catheterization 03/2017 @ [facility] with Dr. Teague--NO stents History of colonoscopy with polypectomy History of melanoma excision above right eye History of tonsillectomy History of tooth extraction all lower teeth/partial upper Hx of vasectomy Family History Other Hypertension No family history of adverse response to anesthesia No significant family history Denies family history of Myocardial infarction Stroke Social History Smoking Status: Former smoker Age Started Using Tobacco: 17; Age Quit Using Tobacco: 50; Smoking End Date: 20 years ago; Second Hand Exposure: No; Do You Dip or Chew Tobacco: No; Hx Alcohol Use: Yes Alcohol type: hard liquor Alcohol Intake Frequency Comment: 1x per month, 1-3 drinks per sitting Hx Substance Use: No Preferred Language: Emirati Communication Ability: Effective Visual Impairment: No Limitations Hearing Ability: Normal Returns Clerk Required: No Beliefs That Will Affect Care: None Current Living Situation: Spouse Current Living Situation Comment: Lives with and stepson Other Information That Helps Us Care for You: No Feels Safe at Home: Yes Safety Concerns: Feels Safe At This Time Assistive Devices: Denture - Upper, Denture - Lower and Glasses Assistive Devices Comment: glasses here, dentures at home Review of Systems Review of Systems: per HPI Physical Exam Physical Exam: GENERAL: A&Ox3. NAD. HEENT: PERRL, EOMI. Moist mucous membranes. NECK: No JVD. No lymphadenopathy. CHEST/LUNGS: CTAB A/P. No crackles, wheezes, rales, rhonchi. HEART: RRR. No m/g/r. No carotid bruits. ABDOMEN: Mildly distended, soft, mild TTP in epigastric region. No guarding or rebound. BS+. EXTREMITIES: No cyanosis, no clubbing, no edema SKIN: Warm and dry. No rashes or lesions. PSYCHIATRIC: Euthymic affect, no SI, no pressured speech, no hallucinations NEUROLOGIC: No FND. Results & Data Results & Data ([facility]) Vital Signs (Past 12 Hours) Vital Signs Temp Pulse Pulse Resp BP BP Pulse Ox 09/10/22 02:37 61 19 166/77 H 96 09/10/22 02:04 55 L 14 153/82 H 96 09/10/22 01:19 58 L 24 94 09/10/22 00:44 36.1 C L 70 24 154/76 H 95 O2 Del Method O2 Flow Rate 09/10/22 02:37 09/10/22 02:04 Nasal Cannula 2 09/10/22 01:19 Room Air 09/10/22 00:44 Room Air Code Status & VTE Plan VTE Prophylaxis Plan VTE Prophylaxis will be ordered: Yes Supervising Physician Co-Signing Physician Notes Attending addendum: I have physically seen this patient, have supervised the medical residents activities, and agree with the H&P unless as otherwise noted. Assessment and Plan: Small bowel obstruction/ history of /Crohn's Partial versus early high-grade small bowel as noted on CT of abdomen and pelvis NPO NG tube to low intermittent suction placed in the ED Consult general surgery has already seen the patient ED Gastroenterology consulted Zofran 4 mg IV every 6 hours as needed Acetaminophen 1 g IV every 8 hours. Mild pain or fever LR at 80 mils per hour Zosyn 4.5 g IV every 8 hours Famotidine 20 mg IV every 12 hours COPD- Continue home regimen inhalers Remaining orders and notations as noted Resident Activity Tracking Resident Involvement: Resident Care Provided Care Provided: Adult [facility] Medicine
[2022-09-10] MEDS ORDERED: ALBUTEROL 0.083% NEBU SOLN 3 ML VIAL INH PRN (06:07)
[2022-09-10] MEDS ORDERED: ALBUTEROL HFA 8 GM INHALER INH PRN (06:07)
[2022-09-10] MEDS ORDERED: MoRPHine SULFATE 4 MG/ML 1 ML CARP\\VIAL IV PRN (06:07)
[2022-09-10] MEDS ORDERED: ONDANSETRON INJ 2 MG/ML 2 ML VIAL IV PRN (06:07)
[2022-09-10] MEDS ORDERED: ACETAMINOPHEN 1,000 MG/100 ML VIAL IV PRN (06:07)
[2022-09-10] MEDS ORDERED: LACTATED RINGER'S 1,000 ML IV SCH (06:07)
[2022-09-10] MEDS ORDERED: CLOTRIMAZOLE/BETAMETHASONE CR 15 GM TUBE EXT PRN (06:07)
[2022-09-10] MEDS ORDERED: MoRPHine SULFATE 2 MG/ML CARP IV PRN (06:07)
--- NOTE | 2022-09-10 07:22 | XRay Report ---
KUB CLINICAL HISTORY: NGT placement COMPARISON STUDY: CT of the abdomen and pelvis performed earlier today. FINDINGS: Tip of nasogastric tube is within the distal body of the stomach. Incidental note is made o f contrast within the collecting systems from recent contrast-enhanced CT. IMPRESSION: Tip of nasogastric tube within the distal body of the stomach. ACT 112: Negative or not required by law. Electronically signed by: Carl Wu M.D. 09/10/2022 7:20 AM
--- NOTE | 2022-09-10 07:44 | CT Scan Report ---
CT OF THE ABDOMEN AND PELVIS WITH CONTRAST CLINICAL HISTORY: Abdominal pain. Crohn's disease. COMPARISON STUDY: CT of the abdomen and pelvis February 17, 2019 and abdominal ultrasound July 25 1. TECHNIQUE: Following IV administration of 89 mL of Optiray, axial images of the abdomen and pelvis we re obtained from the lung bases to the proximal femurs. Images were reviewed in the axial, sagittal, and coronal planes. IV contrast was administered without complication. Automated exposure control wa s utilized for the study. A dose lowering technique was utilized adhering to the principles of ALARA . CT DOSE: 912.47 mGy.cm FINDINGS: Emphysema is noted within the lower lungs. No pneumatosis, free air or portal venous gas is present. Probable hepatic steatosis. No hepatic lesions are present. No biliary or pancreatic ductal dilatation. Multiple calcified gallstones within the gallbladder are present. The gallbladder is mil dly distended. There is no pericholecystic infiltration. The spleen, adrenal glands, kidneys and panc reas are normal. There is no hydronephrosis. Moderate plaque of the abdominal aorta is present. There is colonic diverticulosis without evidence for acute diverticulitis. The mid small bowel is moderat celena dilated and fluid-filled. There is a small amount of associated ascites and mesenteric stranding. Transition point is within the distal ileum, shown on axial image 266 of 516. Small bowel feces sign is noted. Distal small bowel is relatively decompressed. Note is made of asymmetric wall thickening of the distal ileum, as shown on CT of February 17, 2019. Therefore, the small bowel obstruction is likely due to Crohn's disease. No abscess is present. No fistula is identified. The appendix is normal. A s mall amount of ascites within the pelvis is present. There is no abscess. IMPRESSION: Findings consistent with a small bowel obstruction. Multiple loops of dilated fluid-fill ed small bowel with associated mild ascites and mesenteric stranding. Transition point within the dis georgi ileum at site of long segment small bowel wall thickening, as shown on CT of February 17, 2019. Theref ore, the small bowel obstruction is likely due to Crohn's disease with possible underlying stricture or active inflammation. No abscess. No fistula. No free air. ACT 112: Negative or not required by law. Electronically signed by: Carl Wu M.D. 09/10/2022 7:42 AM
[2022-09-10] MEDS: ENOXAPARIN INJ 40 MG/0.4 ML SYR SQ SCH (08:05)
[2022-09-10] MEDS: FLUTICASONE/VILANTEROL 100/25MCG 14 PUFFS/INHALER INH SCH (09:50)
[2022-09-10 10:14] LABS: Appearance Urine Clear (Clear); Bacteria Urine Automated Negative (Negative); Bilirubin Urine Negative (Negative); Blood Urine Negative (Negative); Cast Urine Automated 0 /lpf (0-5); Color Urine Yellow; Epithelial Cell Urine Auto 0-5 /lpf (0-5); Glucose Urine UA Negative (Negative); Ketones Urine Trace (Negative); Leukocyte Esterase Urine Negative (Negative); Nitrite Urine Negative (Negative); Protein Urine Trace (Negative); RBC Urine Automated 0-4 /hpf (0-4); Specific Gravity Urine > 1.045 (1.000-1.030); Urobilinogen Urine Negative (Negative)
[2022-09-10] MEDS ORDERED: CHLORASEPTIC 1.4% SOLN 180 ML BTL MT PRN (12:31)
[2022-09-10] MEDS: SODIUM CHLORIDE 0.9% 1000ML 1,000 ML IV SCH (13:17)
[2022-09-10] MEDS: PIPERACILLIN/TAZOBACTAM 4.5 GM in DEXTROSE 5% 100 ML IV SCH ×2 (13:17→20:10)
--- NOTE | 2022-09-10 14:58 | Gastrointestinal Consultation ---
Date of Consultation September 10, 2022 Assessment & Plan (1) Crohn's disease: Please start on high dose IV Steroids. Check ESR,CRP. Continue ABx. Monitor NG output. If pain worsens or no improvement he needs transfer to [facility] for surgical resection of the diseased segment. [facility] to resume care on Sunday. (2) Small bowel obstruction: History of Present Illness Reason for Consultation: SBO Attending Physician: Reagan Benoit MD History of Present Illness 71 years old male patient with Crohn's disease, followed with [facility] with , I have no access to his records, said he had Crohn's disease for almost 10 years now, mainly small bowel disease in the TI, not well controlled hence recently started on Entyvio for almost a year now and remains on OP Mesalamine as well, has intermittent diarrhea and abdominal cramps but now presented with abdominal pain and vomiting, found to have SBO due to TI segment of inflammation and stricture related to his underlying Crohn's. NG placed and stomach was decompressed. Last BM yesterday and he is passing flatus today. No rectal bleeding. Last colonoscopy 2 years ago per patient. Allergies Allergy/AdvReac Type Severity Reaction Status Date / Time No Known Allergies Allergy Verified 09/10/22 01:45 Home Medications Medication Instructions Recorded Confirmed Type ascorbic acid (vitamin C) 500 mg 500 mg PO QAM 09/01/18 09/10/22 History tablet (Vitamin C) cholecalciferol (vitamin D3) 25 1,000 unit PO QAM 09/01/18 09/10/22 History mcg (1,000 unit) chewable tablet (Vitamin D3) colestipol 1 gram tablet 1 g PO BID 09/01/18 09/10/22 History levothyroxine 112 mcg tablet 112 mcg PO QAM 09/01/18 09/10/22 History loperamide 2 mg capsule 2 mg PO BID 09/01/18 09/10/22 History multivitamin 1 tab PO QAM 09/01/18 09/10/22 History vitamin B complex 1 tab PO QAM 09/01/18 09/10/22 History albuterol sulfate 2.5 mg/3 mL 2.5 mg inhalation Q4H PRN 04/30/19 09/10/22 History (0.083 %) solution for nebulization shortness of breath or wheezing #1 mL clotrimazole-betamethasone 1 1 appln topical BID PRN Rash 04/30/19 09/10/22 History %-0.05 % topical cream mesalamine 0.375 gram 1.5 g PO QAM 04/30/19 09/10/22 History capsule,extended release 24 hr vedolizumab 300 mg intravenous See Rx Instructions IV .COMPLEX 03/08/20 09/10/22 History solution (Entyvio) hydroxyzine HCl 25 mg tablet 25 mg PO BID PRN ANXIETY/SLEEP 09/16/21 09/10/22 History trazodone 50 mg tablet 50 mg PO HS 09/16/21 09/10/22 History finasteride 5 mg tablet 5 mg PO DAILY #90 tabs 03/02/22 09/10/22 Rx budesonide-formoterol HFA 160 1 inh inhalation BID #10.2 grams 07/10/22 09/10/22 Rx mcg-4.5 mcg/actuation aerosol inhaler (Symbicort) benralizumab 30 mg/mL subcutaneous See Rx Instructions .Route 07/28/22 09/10/22 Rx syringe (Fasenra) .COMPLEX #1 ea albuterol sulfate 90 mcg/actuation 1 puff inhalation Q6H PRN 08/28/22 09/10/22 Rx aerosol inhaler (ProAir HFA) Shortness Of Breath #8.5 grams potassium chloride 10 mEq 10 meq PO QAM 09/10/22 09/10/22 History capsule,extended release Patient History Medical History Bibasilar crackles Bronchiectasis COPD (chronic obstructive pulmonary disease) inhaler/nebulizer prn Crohns disease Diastolic heart failure History of melanoma Hypertension Hypothyroid Severe persistent asthma Surgical History History of bilateral cataract extraction History of bronchoscopy multiple History of cardiac catheterization 03/2017 @ [facility] with Dr. Teague--NO stents History of colonoscopy with polypectomy History of melanoma excision above right eye History of tonsillectomy History of tooth extraction all lower teeth/partial upper Hx of vasectomy Family History Other Hypertension No family history of adverse response to anesthesia No significant family history Denies family history of Myocardial infarction Stroke Social History Smoking Status: Former smoker Age Started Using Tobacco: 17; Age Quit Using Tobacco: 50; Smoking End Date: 20 years ago; Second Hand Exposure: No; Do You Dip or Chew Tobacco: No; Hx Alcohol Use: Yes Alcohol type: hard liquor Alcohol Intake Frequency Comment: 1x per month, 1-3 drinks per sitting Hx Substance Use: No Preferred Language: Guatemalan Communication Ability: Effective Visual Impairment: No Limitations Hearing Ability: Normal Consulting Project Director Required: No Beliefs That Will Affect Care: None Current Living Situation: Spouse Current Living Situation Comment: Lives with and stepson Other Information That Helps Us Care for You: No Feels Safe at Home: Yes Safety Concerns: Feels Safe At This Time Assistive Devices: Denture - Upper, Denture - Lower and Glasses Assistive Devices Comment: glasses here, dentures at home Review of Systems Review of Systems: All systems reviewed & are unremarkable except as noted in HPI & below Physical Exam Constitutional: + well hydrated, cooperative and comfortable Eyes: PERRL, conjunctivae normal, anicteric sclerae ENMT: external ear and nose normal, oropharynx normal Neck: normal visual inspection and trachea midline Respiratory: normal respiratory effort, lungs clear to auscultation Auscultation: no wheezes Cardiovascular: RRR, no murmur, no edema Gastrointestinal (Abdomen): normal bowel sounds, soft, nontender, no hepatosplenomegaly (Distended) Musculoskeletal: no cyanosis or clubbing, extremities motor strength 5/5 Skin: no rashes, warm and dry Neurologic: awake; no focal motor deficits Motor/Sensory: no tremor Results & Data ([facility]) Vital Signs (Past 12 Hours) Vital Signs Temp Pulse Pulse Resp BP BP Pulse Ox 09/10/22 14:52 36.5 C 75 16 137/77 93 09/10/22 10:00 09/10/22 07:12 36.3 C L 75 16 136/71 93 09/10/22 06:50 09/10/22 06:41 77 20 131/80 93 09/10/22 06:38 77 20 131/77 93 09/10/22 04:30 144/83 H 93 09/10/22 04:00 65 21 138/81 91 09/10/22 03:30 57 L 17 164/99 H 97 09/10/22 03:00 60 23 154/81 H 96 O2 Del Method 09/10/22 14:52 Room Air 09/10/22 10:00 Room Air 09/10/22 07:12 Room Air 09/10/22 06:50 Room Air 09/10/22 06:41 Room Air 09/10/22 06:38 Room Air 09/10/22 04:30 09/10/22 04:00 09/10/22 03:30 09/10/22 03:00 Laboratory Results Laboratory Results - last 24 hr 09/10/22 09/10/22 09/10/22 01:10 01:10 01:10 WBC 20.23 H RBC 5.28 Hgb 15.9 Hct 46.4 MCV 87.9 MCH 30.1 MCHC 34.3 RDW Std Deviation 44.0 RDW Coeff of Ryan 13.7 Plt Count 427 H MPV 10.7 Immature Gran % (Auto) 0.3 Neut % (Auto) 85.2 Lymph % (Auto) 7.7 Travis % (Auto) 6.6 Eos % (Auto) 0.0 Baso % (Auto) 0.2 Neut # (Auto) 17.23 H Lymph # (Auto) 1.56 Travis # (Auto) 1.33 H Eos # (Auto) 0.00 Baso # (Auto) 0.04 Immature Gran # (Auto) 0.07 H PT 11.5 INR 1.1 Sodium 135 L Potassium 4.1 Chloride 99 Carbon Dioxide 22 Anion Gap 14 H BUN 18 Creatinine 0.86 Est Cr Clr Drug Dosing 96.2 Est GFR ( Amer) 101.1 Est GFR (Non-Af Amer) 87.2 BUN/Creatinine Ratio 20.9 H Glucose 173 H Calcium 9.5 Total Bilirubin 1.4 H AST 30 ALT 32 Alkaline Phosphatase 73 Troponin I High Sens Total Protein 7.6 Albumin 4.4 Globulin 3.2 Albumin/Globulin Ratio 1.4 Lipase 15 Urine Color Urine Appearance Urine pH Ur Specific [place] Urine Protein Urine Glucose (UA) Urine Ketones Urine Blood Urine Nitrite Urine Bilirubin Urine Urobilinogen Ur Leukocyte Esterase Urine WBC (Auto) Urine RBC (Auto) U Hyaline Cast (Auto) U Epithel Cells (Auto) Urine Bacteria (Auto) SARS-CoV-2, RNA, NAAT 09/10/22 09/10/22 09/10/22 01:10 02:09 10:00 WBC RBC Hgb Hct MCV MCH MCHC RDW Std Deviation RDW Coeff of Ryan Plt Count MPV Immature Gran % (Auto) Neut % (Auto) Lymph % (Auto) Travis % (Auto) Eos % (Auto) Baso % (Auto) Neut # (Auto) Lymph # (Auto) Travis # (Auto) Eos # (Auto) Baso # (Auto) Immature Gran # (Auto) PT INR Sodium Potassium Chloride Carbon Dioxide Anion Gap BUN Creatinine Est Cr Clr Drug Dosing Est GFR ( Amer) Est GFR (Non-Af Amer) BUN/Creatinine Ratio Glucose Calcium Total Bilirubin AST ALT Alkaline Phosphatase Troponin I High Sens 7.7 Total Protein Albumin Globulin Albumin/Globulin Ratio Lipase Urine Color Yellow Urine Appearance Clear Urine pH 6.0 Ur Specific [place] > 1.045 H Urine Protein Trace H Urine Glucose (UA) Negative Urine Ketones Trace H Urine Blood Negative Urine Nitrite Negative Urine Bilirubin Negative Urine Urobilinogen Negative Ur Leukocyte Esterase Negative Urine WBC (Auto) 1-5 Urine RBC (Auto) 0-4 U Hyaline Cast (Auto) 0 U Epithel Cells (Auto) 0-5 Urine Bacteria (Auto) Negative SARS-CoV-2, RNA, NAAT NEGATIVE
[2022-09-10] MEDS: methylPREDNISolone 20 MG in SYRINGE 0 ML IV SCH (17:28)
--- NOTE | 2022-09-10 20:50 | Billing Data ---
Date of Service September 10, 2022 Coding Level of Care Code 97143 Initial Inpt Care Lvl 3
[2022-09-10] MEDS ORDERED: diphenhydrAMINE 50 MG/ML VIAL IV STA (20:51)
--- NOTE | 2022-09-10 22:17 | Hospitalist Progress Note ---
Date of Service September 10, 2022 Assessment & Plan (1) Small bowel obstruction: Plan: Attending: Dr. Beltrán Impression: 71-year-old male with past medical history of Crohn's disease, COPD, BPH with LUTS, anxiety, hypothyroidism who presented due to abdominal pain. Fo und to have a SBO. SBO in the setting of Crohn's disease CT abdomen demonstrating partial versus early high-grade SBO N.p.o. we will allow few ice chips but no sips. NG tube placed in ED to LIS General surgery consulted and recommends that gastroenterology carry the ball on treatment due to significant Crohn's disease Gastroenterology consult due to history of Crohn's Antiemetics and analgesics as needed LR at 80 cc/h on admission. We will discontinue this and change patient to normal saline solution due to compatibility issues with antibiotics and lactated Ringer's Received Zosyn 4.5 g x 1 in ED continue for now in the setting of elevated white count, blood cultures drawn and pending Okay to continue on MedSurg at this time. Crohn's disease As above -Appreciate Dr. Acuña's input -Continue methylprednisolone 20 mg IV every 8 hours per gastroenterology orders Hold mesalamine while n.p.o. COPD Continue home inhaler regimen -Patient continues to smoke approximate 1 pack/day -He reports that he does not follow with pulmonology and that he has had no exacerbations or need for urgent care or emergency department intervention over the last year -Patient encouraged to decrease tobacco usage with a goal of abstinence BPH with LUTS Hold finasteride Anxiety/insomnia Hold hydroxyzine, trazodone Hypothyroidism -Continue levothyroxine 112 mcg p.o. daily DVT prophylaxis: Lovenox SQ FEN GI: N.p.o., NSS ast 80ml/hr Dispo: Admit to MedSurg CODE STATUS: Full (2) COPD (chronic obstructive pulmonary disease): (3) BPH loc w urin obs/LUTS: (4) Hypertension: (5) Hypothyroid: (6) Crohns disease: Admission and Anticipated Discharge Date Admission Date: September 10, 2022 Supervising Physician Co-Signing Physician Notes Attending Attestation - Chart reviewed, care plan d/w ESPINOZA Wang. I agree w/ the alfredo components of his documentation. SBO 2nd to Crohn's disease. Cont steroids IV. Appreciate GI input. Appreciate gen surg input. Crow Beltrán MD Subjective Attending: Dr. Beltrán This is a 71-year-old male with history of Crohn's disease that was admitted yesterday for small bowel obstruction. CT abdomen demonstrated partial versus early high-grade small bowel obstruction. Gastroenterology consulted and Dr. Acuña very concerned with possible microperforation of bowel. Patient denies any acute abdominal pain at this time. Abdominal distention is much much better since NG tube has been placed. Patient is complaining about NG tube and asked for it to be removed. Anatomy and physiology of gastric system explained the patient and he understands need to maintain NGT at this time. We will allow patient to have a few ice chips but no sips of water and patient is to remain n.p.o. Patient denies fever, chills, sweats, rigors. No nausea or vomiting. No diarrhea. He reports that he is passing gas. Review of Systems Review of Systems: A total of 10 systems was reviewed and is negative other than as listed in the HPI Physical Exam Physical Exam: GENERAL : No acute distress EYES: No icterus, gaze conjugate NOSE: No evidence of epistaxis. NG tube is in place and secure MOUTH: No lesions or candidiasis. No evidence of coiling of NG tube in the posterior oropharynx NECK: Supple LUNGS: CTA B/L, no wheezes, rales or rhonchi HEART: Regular, rate controlled ABDOMEN: Soft, NT, BS Present but very quiet. No rebound tenderness. No significant distention on examination EXTREMITIES: No LE edema, pedal pulses intact NEURO: A&OX3 Results & Data Results & Data ([facility]) Vital Signs (Past 12 Hours) Vital Signs Temp Pulse Resp BP Pulse Ox O2 Del Method 09/10/22 14:52 36.5 C 75 16 137/77 93 Room Air Critical Care Results & Data Vital Signs (Past 12 Hours) Vital Signs Temp Pulse Resp BP Pulse Ox O2 Del Method 09/10/22 14:52 36.5 C 75 16 137/77 93 Room Air Lab & Micro Results (Past 24 Hours) No Data to Display No Data to Display No Data to Display Diagnostic Findings (Past 24 Hours) Abdomen/Pelvis CT 09/10/22 00:52 CT OF THE ABDOMEN AND PELVIS WITH CONTRAST CLINICAL HISTORY: Abdominal pain. Crohn's disease. COMPARISON STUDY: CT of the abdomen and pelvis February 17, 2019 and abdominal ultrasound July 25, 2021. TECHNIQUE: Following IV administration of 89 mL of Optiray, axial images of the abdomen and pelvis were obtained from the lung bases to the proximal femurs. Images were reviewed in the axial, sagittal, and coronal planes. IV contrast was administered without complication. Automated exposure control was utilized for the study. A dose lowering technique was utilized adhering to the principles of ALARA. CT DOSE: 912.47 mGy.cm FINDINGS: Emphysema is noted within the lower lungs. No pneumatosis, free air or portal venous gas is present. Probable hepatic steatosis. No hepatic lesions are present. No biliary or pancreatic ductal dilatation. Multiple calcified gallstones within the gallbladder are present. The gallbladder is mildly distended. There is no pericholecystic infiltration. The spleen, adrenal glands, kidneys and pancreas are normal. There is no hydronephrosis. Moderate plaque of the abdominal aorta is present. There is colonic diverticulosis without evidence for acute diverticulitis. The mid small bowel is moderately dilated and fluid- filled. There is a small amount of associated ascites and mesenteric stranding. Transition point is within the distal ileum, shown on axial image 266 of 516. Small bowel feces sign is noted. Distal small bowel is relatively decompressed. Note is made of asymmetric wall thickening of the distal ileum, as shown on CT of February 17, 2019. Therefore, the small bowel obstruction is likely due to Crohn's disease. No abscess is present. No fistula is identified. The appendix is normal. A small amount of ascites within the pelvis is present. There is no abscess. IMPRESSION: Findings consistent with a small bowel obstruction. Multiple loops of dilated fluid-filled small bowel with associated mild ascites and mesenteric stranding. Transition point within the distal ileum at site of long segment small bowel wall thickening, as shown on CT of February 17, 2019. Therefore, the small bowel obstruction is likely due to Crohn's disease with possible underlying stricture or active inflammation. No abscess. No fistula. No free air. ACT 112: Negative or not required by law. Electronically signed by: Carl Wu M.D. 09/10/2022 7:42 AM KUB X-Ray 09/10/22 04:42 KUB CLINICAL HISTORY: NGT placement COMPARISON STUDY: CT of the abdomen and pelvis performed earlier today. FINDINGS: Tip of nasogastric tube is within the distal body of the stomach. Incidental note is made of contrast within the collecting systems from recent contrast-enhanced CT. IMPRESSION: Tip of nasogastric tube within the distal body of the stomach. ACT 112: Negative or not required by law. Electronically signed by: Carl Wu M.D. 09/10/2022 7:20 AM I & O Totals 24 Hours 09/09/22 09/10/22 09/11/22 06:59 06:59 06:59 Intake Total 1000 / 1000 670 / 670 Output Total 100 / 100 700 / 700 Balance 900 / 900 -30 / -30 Cumulative 09/10/22 00:43 thru 09/10/22 17:28 Intake Total 1670 Output Total 800 Balance 870 RT Ventilator Mngmt (Last Documented) Ventilator Ordered Settings Respiratory Rate 16 09/10/22 14:52 Ventilator - PT Measurements Respiratory Rate 16 PG Care Time/CCT Total # of Minutes Spent Total Time Spent with Patient: Total time spent is greater than 50% in coordination of care (as documented) at patient's floor/unit and/or counseling patient: Coding Level of Care Code 95741 Subseq Hosp Care Lvl 2 Diagnoses Small bowel obstruction K56.609 COPD (chronic obstructive pulmonary disease) J44.9 BPH loc w urin obs/LUTS N40.1 Hypertension I10 Hypothyroid E03.9 Crohns disease K50.90
[2022-09-11] MEDS: methylPREDNISolone 20 MG in SYRINGE 0 ML IV SCH ×3 (00:52→17:44)
[2022-09-11] MEDS: SODIUM CHLORIDE 0.9% 1000ML 1,000 ML IV SCH ×2 (00:52→13:03)
[2022-09-11] MEDS: PIPERACILLIN/TAZOBACTAM 4.5 GM in DEXTROSE 5% 100 ML IV SCH ×3 (04:02→19:45)
--- NOTE | 2022-09-11 06:15 | Electrocardiogram Report ---
Test Reason : Blood Pressure : / mmHG Vent. Rate : 059 BPM Atrial Rate : 059 BPM P-R Int : 160 ms QRS Dur : 086 ms QT Int : 442 ms P-R-T Axes : 073 073 065 degrees QTc Int : 437 ms Sinus bradycardia Nonspecific ST abnormality When compared with ECG of 03-JAN-2019 12:06, No significant change was found Confirmed by Bryce Mcmahon ([id number]) on 09/11/2022 6:15:04 AM Referred By: Jocelyne Cook Confirmed By:Bryce Mcmahon
[2022-09-11] MEDS: FLUTICASONE/VILANTEROL 100/25MCG 14 PUFFS/INHALER INH SCH (08:37)
[2022-09-11] MEDS: ENOXAPARIN INJ 40 MG/0.4 ML SYR SQ SCH (08:38)
--- NOTE | 2022-09-11 09:38 | Surgery Progress Note ---
Date of Service September 11, 2022 Assessment & Plan (1) Small bowel obstruction: Plan: Patient feeling a bit better. Reports passing + flatus/BMs NGT in place 1.5L documented over last 12 hours. Only taking in minimal ice On exam abdomen soft, mild distention, with some mild discomfort to palpation KUB is pending, will f/u on results GI following along for Crohn's history, started on steroids. Appreciate their assistance with pt (2) Crohn's disease: Admission and Anticipated Discharge Date Admission Date: September 10, 2022 Supervising Physician Co-Signing Physician Notes Patient seen examined, agree with above. Being treated for Crohn's flare with steroids, feeling better, passing flatus. We will clamp NG tube and remove if tolerates and low residuals. Subjective Patient is feeling okay. Reports passing flatus/BMs. Still with some mild abdominal pain and bloating. Otherwise no nausea/vomiting. Physical Exam Physical Exam: awake/alert, no distress Gastrointestinal (Abdomen): Inspection/Auscultation: + abdomen distended (mild) Percussion/Palpation: + abdomen tender (some discomfort elicited in the mid abdomen ) and abdomen soft Results & Data ([facility]) Vital Signs (Past 12 Hours) Vital Signs Temp Pulse Pulse Resp BP BP Pulse Ox 09/11/22 07:44 36.5 C 65 19 148/68 H 93 09/10/22 23:05 36.7 C 86 18 134/60 91 O2 Del Method 09/11/22 07:44 Room Air 09/10/22 23:05 Room Air PG Care Time/CCT Total # of Minutes Spent Total Time Spent with Patient: Total time spent is greater than 50% in coordination of care (as documented) at patient's floor/unit and/or counseling patient: Coding Level of Care Code 03686 Subseq Hosp Care Lvl 1 Diagnoses Small bowel obstruction K56.609 Crohn's disease K50.90
--- NOTE | 2022-09-11 10:24 | XRay Report ---
KUB HISTORY: Small bowel obstruction. Generalized abdominal pain. COMPARISON: KUB 09/10/2022. Abdomen and pelvis CT 09/10/2022. FINDINGS: The nasogastric tube terminates in the body of the stomach. Cholelithiasis again noted. Mil dly dilated gas-filled loops of small bowel are again seen within the midabdomen. There is gas and st ool within the colon. Therefore, this favors a persistent partial small bowel obstruction. No renal calculi. No ureteral calculi. No pneumoperitoneum or pneumatosis. IMPRESSION: 1. Nasogastric tube terminates at the body the stomach. 2. No significant change in the partial small bowel obstruction ACT 112: Negative or not required by law. Electronically signed by: Anthony Armenta M.D. 09/11/2022 10:22 AM
--- NOTE | 2022-09-11 10:54 | Gastroenterology Progress Note ---
Date of Service September 11, 2022 Assessment & Plan (1) Crohn's disease: Plan: - (2) Small bowel obstruction: Plan -Continue high dose IV corticosteroids. Anticipate a Prednisone taper on discharge beginning at 40 mg daily x 1 week, then reducing by 5 mg/week for a total of 8 weeks. -Await CRP -Await KUB; if resolved SBO can remove NG particularly now that patient is moving his bowels -Will need outpatient follow-up with Dr. Arrington & the team at [facility] GI Admission and Anticipated Discharge Date Admission Date: September 10, 2022 Subjective Patient is a 71 yo male with Crohn's disease admitted with SBO. He notes improvement of his symptoms since initiation of IV steroids. He is eager to have the NG tube pulled. He is hungry. He has moved his bowels 4 times today which is improvement for him. No overt bleeding. Review of Systems Constitutional: no fever and no chills Respiratory: no cough and no dyspnea Cardiovascular: no chest pain Gastrointestinal: + abdominal pain (improving); no blood in stools Physical Exam Constitutional: well developed Respiratory: normal respiratory effort Cardiovascular: Rate/Rhythm: regular rate Gastrointestinal (Abdomen): Inspection/Auscultation: + abdomen distended and + hypoactive bowel sounds NG tube present Musculoskeletal: Head/Neck/Chest: normocephalic Psychiatric: Orientation: alert and oriented x 3 Results & Data Results & Data ([facility]) Vital Signs (Past 12 Hours) Vital Signs Temp Pulse Pulse Resp BP BP Pulse Ox 09/11/22 07:44 36.5 C 65 19 148/68 H 93 09/10/22 23:05 36.7 C 86 18 134/60 91 O2 Del Method 09/11/22 07:44 Room Air 09/10/22 23:05 Room Air PG Care Time/CCT Total # of Minutes Spent Total Time Spent with Patient: Total time spent is greater than 50% in coordination of care (as documented) at patient's floor/unit and/or counseling patient: Coding Level of Care Code 56870 Subseq Hosp Care Lvl 3 Diagnoses Crohn's disease K50.90 Small bowel obstruction K56.609
[2022-09-11] MEDS ORDERED: diphenhydrAMINE 50 MG/ML VIAL IV ONE (21:58)
--- NOTE | 2022-09-11 23:26 | Hospitalist Progress Note ---
Date of Service September 11, 2022 Assessment & Plan (1) Small bowel obstruction: Plan: Attending: Dr. Beltrán Impression: 71-year-old male with past medical history of Crohn's disease, COPD, BPH with LUTS, anxiety, hypothyroidism who presented due to abdominal pain. Fo und to have a SBO. SBO in the setting of Crohn's disease CT abdomen demonstrating partial versus early high-grade SBO N.p.o. we will allow few ice chips but no sips until cleared by GI NG tube placed in ED to LIS General surgery consulted and recommends that gastroenterology carry the ball on treatment due to significant Crohn's disease. Does not appear to be a surgical belly at this time Gastroenterology consult due to history of Crohn's Antiemetics and analgesics as needed LR at 80 cc/h on admission. We will discontinue this and change patient to normal saline solution due to compatibility issues with antibiotics and lactated Ringer's Received Zosyn 4.5 g x 1 in ED continue for now in the setting of elevated white count. Blood cultures NGTD 2/2 Okay to continue on MedSurg at this time. Crohn's disease As above -Appreciate Dr. Acuña's input -Continue methylprednisolone 20 mg IV every 8 hours per gastroenterology orders Hold mesalamine while n.p.o. COPD - Continue home inhaler regimen including Breo Ellipta daily and Allbuterol as needed -Patient quit smoking 20 years ago -He reports that he does not follow with pulmonology and that he has had no exacerbations or need for urgent care or emergency department intervention over the last year -Patient encouraged to continue to abstain from all tobacco products BPH with LUTS Hold finasteride Anxiety/insomnia Hold hydroxyzine, trazodone Hypothyroidism -Continue levothyroxine 112 mcg p.o. daily History of Tobacco Abuse Quit smoking 20 years ago Continue complete abstention from tobacco products DVT prophylaxis: Lovenox SQ FEN GI: N.p.o., NSS ast 80ml/hr Dispo: Admit to MedSurg. Anticipate discharge home CODE STATUS: Full (2) COPD (chronic obstructive pulmonary disease): (3) BPH loc w urin obs/LUTS: (4) Hypertension: (5) Hypothyroid: (6) Crohns disease: Admission and Anticipated Discharge Date Admission Date: September 10, 2022 Supervising Physician Co-Signing Physician Notes Attending Attestation - Chart reviewed, care plan d/w ESPINOZA Wang. I agree w/ the alfredo components of his documentation. SBO 2nd to Crohn's disease. Cont steroids IV. Zosyn - likely can d/c these, uncertain if necessary in the above setting. Crow Beltrán MD Subjective Attending: Dr. Beltrán Patient seen and examined in room 353 bed 2. He continues to have significant drainage via NG tube to low intermittent wall suction. No abdominal pain reported. Patient did have repeat KUB this morning which shows persistent small bowel obstruction. He was started on IV steroids. It appears as though this is helping with the inflammation as patient is now having some small liquid bowel movements. No melena or hematochezia. Patient denies fever or chills. No other acute complaints. Review of Systems Review of Systems: A total of 10 systems was reviewed and is negative other than as listed in the HPI Physical Exam Physical Exam: GENERAL : No acute distress EYES: No icterus, gaze conjugate NOSE: No evidence of epistaxis. NG tube is in place and secure. Bilious drainage to suction MOUTH: No lesions or candidiasis. No evidence of coiling of NG tube in the posterior oropharynx NECK: Supple LUNGS: CTA B/L, no wheezes, rales or rhonchi HEART: Regular, rate controlled ABDOMEN: Soft, NT, BS Present but very quiet. No rebound tenderness. No significant distention on examination EXTREMITIES: No LE edema, pedal pulses intact NEURO: A&OX3 Results & Data Results & Data ([facility]) Vital Signs (Past 12 Hours) Vital Signs Temp Pulse Pulse Resp BP BP Pulse Ox 09/11/22 14:57 36.4 C L 61 20 152/76 H 94 09/11/22 11:29 36.4 C L 64 18 136/72 93 O2 Del Method 09/11/22 14:57 Room Air 09/11/22 11:29 Room Air Critical Care Results & Data Vital Signs (Past 12 Hours) Vital Signs Temp Pulse Pulse Resp BP BP Pulse Ox 09/11/22 14:57 36.4 C L 61 20 152/76 H 94 09/11/22 11:29 36.4 C L 64 18 136/72 93 O2 Del Method 09/11/22 14:57 Room Air 09/11/22 11:29 Room Air Lab & Micro Results (Past 24 Hours) No Data to Display No Data to Display No Data to Display Microbiology 09/10/22 04:15 Aerobic Blood Culture - Preliminary Blood No growth in Aerobic bottle after 24 hours. Anaerobic Blood Culture - Final 09/10/22 04:23 Aerobic Blood Culture - Preliminary Blood No growth in Aerobic bottle after 24 hours. Anaerobic Blood Culture - Final Diagnostic Findings (Past 24 Hours) KUB X-Ray 09/11/22 09:27 KUB HISTORY: Small bowel obstruction. Generalized abdominal pain. COMPARISON: KUB 09/10/2022. Abdomen and pelvis CT 09/10/2022. FINDINGS: The nasogastric tube terminates in the body of the stomach. Cholelithiasis again noted. Mildly dilated gas-filled loops of small bowel are again seen within the midabdomen. There is gas and stool within the colon. Therefore, this favors a persistent partial small bowel obstruction. No renal calculi. No ureteral calculi. No pneumoperitoneum or pneumatosis. IMPRESSION: 1. Nasogastric tube terminates at the body the stomach. 2. No significant change in the partial small bowel obstruction ACT 112: Negative or not required by law. Electronically signed by: Anthony Armenta M.D. 09/11/2022 10:22 AM I & O Totals 24 Hours 09/10/22 09/11/22 09/12/22 06:59 06:59 06:59 Intake Total 1000 / 1000 1716.667 / 0470.321 2142.667 / 1214.667 Output Total 100 / 100 2902 / 2902 403 / 403 Balance 900 / 900 -1185.333 / -1185.333 811.667 / 811.667 Cumulative 09/10/22 00:43 thru 09/11/22 22:21 Intake Total 3931.334 Output Total 3405 Balance 526.334 RT Ventilator Mngmt (Last Documented) Ventilator Ordered Settings Respiratory Rate 20 09/11/22 14:57 Ventilator - PT Measurements Respiratory Rate 20 PG Care Time/CCT Total # of Minutes Spent Total Time Spent with Patient: Total time spent is greater than 50% in coordination of care (as documented) at patient's floor/unit and/or counseling patient: Coding Level of Care Code 52450 Subseq Hosp Care Lvl 2 Diagnoses Small bowel obstruction K56.609 COPD (chronic obstructive pulmonary disease) J44.9 BPH loc w urin obs/LUTS N40.1 Hypertension I10 Hypothyroid E03.9 Crohns disease K50.90
[2022-09-12] MEDS: SODIUM CHLORIDE 0.9% 1000ML 1,000 ML IV SCH ×2 (00:39→11:37)
[2022-09-12] MEDS: methylPREDNISolone 20 MG in SYRINGE 0 ML IV SCH ×3 (00:39→16:27)
[2022-09-12] MEDS: PIPERACILLIN/TAZOBACTAM 4.5 GM in DEXTROSE 5% 100 ML IV SCH ×2 (04:05→11:37)
[2022-09-12] MEDS: ENOXAPARIN INJ 40 MG/0.4 ML SYR SQ SCH (08:45)
[2022-09-12] MEDS: FLUTICASONE/VILANTEROL 100/25MCG 14 PUFFS/INHALER INH SCH (08:46)
--- NOTE | 2022-09-12 09:53 | Surgery Progress Note ---
Date of Service September 12, 2022 Assessment & Plan (1) Small bowel obstruction: Plan: Patient admitted with SBO 2/2 Crohn's flare He tolerated NGT clamp trial yesterday and was since removed Denies abdominal pain, nausea/vomiting. Having + bowel function Tolerated clears for bfast, will order fulls for lunch, if does well from our standpoint may continue to [facility] GI following for Crohn's flare, currently receiving steroids We will follow peripherally, please call with any questions/concerns (2) Crohn's disease: Admission and Anticipated Discharge Date Admission Date: September 10, 2022 Supervising Physician Co-Signing Physician Notes Patient seen and examined, agree with above. Admitted with partial small bowel obstruction secondary to Crohn's flare, is responding to steroids. Passing flatus and having bowel movements and tolerated full liquid diet. On exam afebrile stable vitals, abdomen soft, nontender. We will advance to low fiber diet. Surgery will sign off, call with questions or concerns. Follow-up with GI for Crohn's. Subjective Patient is feeling well. Denies abdominal pain, nausea/vomiting. Continues to pass flatus/BMs. Tolerated clears for breakfast without issues. Physical Exam Physical Exam: awake/alert Gastrointestinal (Abdomen): Inspection/Auscultation: + abdomen distended (mild) Percussion/Palpation: abdomen soft; abdomen nontender Results & Data ([facility]) Vital Signs (Past 12 Hours) Vital Signs Temp Pulse Resp BP BP Pulse Ox O2 Del Method 09/12/22 07:25 36.5 C 56 L 18 126/73 94 Room Air 09/11/22 23:28 36.7 C 69 18 138/64 92 Room Air PG Care Time/CCT Total # of Minutes Spent Total Time Spent with Patient: Total time spent is greater than 50% in coordination of care (as documented) at patient's floor/unit and/or counseling patient: Coding Level of Care Code 64331 Subseq Hosp Care Lvl 1 Diagnoses Small bowel obstruction K56.609 Crohn's disease K50.90
--- NOTE | 2022-09-12 10:42 | Gastroenterology Progress Note ---
Date of Service September 12, 2022 Assessment & Plan (1) Crohn's disease: (2) Small bowel obstruction: Plan - upon discharge, would start prednisone taper at 40 mg daily x 1 week, then reducing by 5 mg/week for a total of 8 weeks. - Once discharged, he should follow up with his regular GI Dr. Arrington & the team at [facility]. Admission and Anticipated Discharge Date Admission Date: September 10, 2022 Subjective Patient had NG pulled since yesterday. He tells me he has been feeling well. tolerated full liquid diet. Moving bowels and tells me he has had 3 bowel movements this morning which were liquid. no bleeding. no melena. no abdominal pain. he feels well and tells me he is eager to be discharged to home. Physical Exam Constitutional: WD/WN, vitals as above Respiratory: normal respiratory effort, lungs clear to auscultation Cardiovascular: RRR, no murmur, no edema Gastrointestinal (Abdomen): normal bowel sounds, soft, nontender, no hepatosplenomegaly Skin: no rashes, warm and dry Psychiatric: Orientation: alert and oriented x 3 Affect: euthymic affect Results & Data Results & Data ([facility]) Vital Signs (Past 12 Hours) Vital Signs Temp Pulse Resp BP BP Pulse Ox O2 Del Method 09/12/22 07:25 36.5 C 56 L 18 126/73 94 Room Air 09/11/22 23:28 36.7 C 69 18 138/64 92 Room Air PG Care Time/CCT Total # of Minutes Spent Total Time Spent with Patient: Total time spent is greater than 50% in coordination of care (as documented) at patient's floor/unit and/or counseling patient: Coding Level of Care Code 53749 Subseq Hosp Care Lvl 2 Diagnoses Crohn's disease K50.90 Small bowel obstruction K56.609
--- NOTE | 2022-09-12 17:45 | Hospitalist Progress Note ---
Date of Service September 12, 2022 Assessment & Plan (1) Small bowel obstruction: Plan: Attending: Dr. Beltrán Impression: 71-year-old male with past medical history of Crohn's disease, COPD, BPH with LUTS, anxiety, hypothyroidism who presented due to abdominal pain. Fo und to have a SBO. SBO in the setting of Crohn's disease CT abdomen demonstrating partial versus early high-grade SBO General surgery consulted and recommends that gastroenterology carry the ball on treatment due to significant Crohn's disease. Does not appear to be a surgical belly at this time Appreciate GI consult Antiemetics and analgesics as needed stop IVF, advance diet to low fiber No need for ongoing antibiotics Crohn's disease As above -Appreciate Dr. Acuña's input -Continue methylprednisolone 20 mg IV every 8 hours per gastroenterology orders Hold mesalamine while n.p.o. COPD - Continue home inhaler regimen including Breo Ellipta daily and Allbuterol as needed -Patient quit smoking 20 years ago -He reports that he does not follow with pulmonology and that he has had no exacerbations or need for urgent care or emergency department intervention over the last year -Patient encouraged to continue to abstain from all tobacco products BPH with LUTS Hold finasteride Anxiety/insomnia Hold hydroxyzine, trazodone Hypothyroidism -Continue levothyroxine 112 mcg p.o. daily History of Tobacco Abuse Quit smoking 20 years ago Continue complete abstention from tobacco products DVT prophylaxis: Lovenox SQ FEN GI: ace fiber Dispo: Admit to [facility]. Anticipate discharge home tomorrow CODE STATUS: Full (2) COPD (chronic obstructive pulmonary disease): (3) BPH loc w urin obs/LUTS: (4) Hypertension: (5) Hypothyroid: (6) Crohns disease: Admission and Anticipated Discharge Date Admission Date: September 10, 2022 Subjective Moving liquid bowel movements. No nausea or vomiting. Abdominal pain resolved. Not yet started on low fiber diet. Review of Systems Review of Systems: All systems reviewed & are unremarkable except as noted in Subjective Physical Exam Constitutional: WD/WN, vitals as above Respiratory: normal respiratory effort, lungs clear to auscultation Cardiovascular: RRR, no murmur, no edema Gastrointestinal (Abdomen): normal bowel sounds, soft, nontender, no hepatosplenomegaly Skin: no rashes, warm and dry Psychiatric: Orientation: alert and oriented x 3 Affect: euthymic affect Results & Data Results & Data ([facility]) Vital Signs (Past 12 Hours) Vital Signs Temp Pulse Resp BP BP Pulse Ox O2 Del Method 09/12/22 14:47 36.6 C 51 L 18 144/68 H 96 Room Air 09/12/22 07:25 36.5 C 56 L 18 126/73 94 Room Air PG Care Time/CCT Total # of Minutes Spent Total Time Spent with Patient: Total time spent is greater than 50% in coordination of care (as documented) at patient's floor/unit and/or counseling patient: Coding Level of Care Code 64022 Subseq Hosp Care Lvl 2 Diagnoses Small bowel obstruction K56.609 COPD (chronic obstructive pulmonary disease) J44.9 BPH loc w urin obs/LUTS N40.1 Hypertension I10 Hypothyroid E03.9 Crohns disease K50.90
[2022-09-12] MEDS ORDERED: diphenhydrAMINE 50 MG/ML VIAL IV ONE (22:27)
[2022-09-13] MEDS: methylPREDNISolone 20 MG in SYRINGE 0 ML IV SCH ×2 (01:00→09:18)
[2022-09-13] MEDS: FLUTICASONE/VILANTEROL 100/25MCG 14 PUFFS/INHALER INH SCH (09:18)
[2022-09-13] MEDS: ENOXAPARIN INJ 40 MG/0.4 ML SYR SQ SCH (09:18)
--- NOTE | 2022-09-28 12:06 | Discharge Summary ---
Date of Service September 13, 2022 Admission HPI Per Admitting Provider José Luis Boone is a 71-year-old male with past medical history of Crohn's disease, COPD, BPH with LUTS, anxiety, hypothyroidism who presented due to abdominal pain that started yesterday morning. His pain is located primarily in the epigastric/periumbilical area and was associated with nausea and vomiting. Last emesis was last night. He does not have a history of abdominal surgeries. Last colonoscopy 2 years ago. Last bowel movement was yesterday morning and he considered it to be normal. He denies bloody/dark stools, unexpected weight loss, fever, chills, chest pain, palpitations, shortness of breath, urinary symptoms, headache, dizziness, weakness, numbness. Work-up in the ED significant for CT abdomen showing partial versus early high- grade small bowel obstruction (see stat rad read for further details). Lab work showing white count of 20.23, platelet count of 427, sodium 135, mild T bili elevation to 1.4, normal lipase, normal troponin. He received fentanyl 50 mcg x 3, normal saline bolus 1 L x 1, Zosyn 4.5 g x 1. He was made NPO and NG tube was placed per Gen Surg recommendation. Principal Diagnosis Small bowel obstruction Crohn's disease flare Discharge Exam Constitutional WD/WN, vitals as above Respiratory normal respiratory effort, lungs clear to auscultation Cardiovascular RRR, no murmur, no edema Gastrointestinal (Abdomen) normal bowel sounds, soft, nontender, no hepatosplenomegaly Psychiatric A+Ox3, euthymic affect Discharge Data Allergies Allergy/AdvReac Type Severity Reaction Status Date / Time No Known Allergies Allergy Verified 09/10/22 01:45 Consultations 09/10/22 04:17 ED Decision to Admit Stat 09/10/22 06:07 Consult Gastroenterology Routine Consult General Surgery Routine Ordered Studies 09/10/22 00:52 CT abd pelvis IV con only Urgent IMPRESSION: Findings consistent with a small bowel obstruction. Multiple loops of dilated fluid-filled small bowel with associated mild ascites and mesenteric stranding. Transition point within the distal ileum at site of long segment small bowel wall thickening, as shown on CT of February 17, 2019. Therefore, the small bowel obstruction is likely due to Crohn's disease with possible underly ing stricture or active inflammation. No abscess. No fistula. No free air. Hospital Course (1) Small bowel obstruction: José Luis Boone is a 71 year old female admitted to [facility] from September 10 - 2021 due to small bowel obstruction and Crohn's flare. This was treated with bowel rest, NG tube, intravenous fluids and IV Solu- Medrol. His diet was slowly advanced and he is now tolerating a low fiber diet on discharge and will transition to oral prednisone to start today as an outpatient per gastroenterology advised taper as prescribed below. (2) COPD (chronic obstructive pulmonary disease): (3) BPH loc w urin obs/LUTS: (4) Hypertension: (5) Hypothyroid: (6) Crohns disease: Total Time Total Time Spent Total Time Spent (In Minutes): 20 Discharge Plan Discharge Items Patient Disposition: Home - Self-Care Reason For Visit: SBO Discharge Diagnosis: Small bowel obstruction Crohn's disease flare Activity: Resume your previous activity Non-emergency contact: Overnight Stocker Call non-emergency contact if: you have any medication questions and your symptoms worsen Follow-up/Referrals: Jocelyne Cook [Primary Care Provider] - 09/20/22 8:45 am Diet: Low Fiber Addtl Attending Provider Instructions: You were admitted to [facility] from September 10 - 2021 due to small bowel obstruction and Crohn's flare. This was treated with bowel rest, NG tube, intravenous fluids and steroids. You are now tolerating a low fiber diet and will transition to oral prednisone to start today as an outpatient. Pending Studies at Discharge: No Stand-Alone Forms: My [facility], Smoking Cessation Medications and DC Order Prescriptions: New prednisone 5 mg tablet See Rx Instructions .ROUTE .COMPLEX Qty: 252 0RF Rx Instructions: 40 mg daily x 7 days, then reducing by 5 mg every 7 days for a total of 8 weeks. Continued Fasenra 30 mg/mL syringe See Rx Instructions .ROUTE .COMPLEX Qty: 1 11RF Dose Instruction: INJECT 30 MG (ONE SYRINGE) SUBCUTANEOUSLY (UNDER THE SKIN) EVERY 8 WEEKS Rx Instructions: INJECT 30 MG (ONE SYRINGE) SUBCUTANEOUSLY (UNDER THE SKIN) EVERY 8 WEEKS APPROVED GOOD 07/20/22 - 07/19/23 Case - [id number] albuterol sulfate [ProAir HFA] 90 mcg/actuation HFA aerosol inhaler 1 puff INHALATION Q6H PRN (Reason: Shortness Of Breath) Qty: 8.5 3RF Entyvio 300 mg recon soln See Rx Instructions IV .COMPLEX Rx Instructions: IV every 8 weeks; trazodone 50 mg tablet 50 mg PO HS hydroxyzine HCl 25 mg tablet 25 mg PO BID PRN (Reason: ANXIETY/SLEEP) budesonide-formoterol [Symbicort] 160-4.5 mcg/actuation HFA aerosol inhaler 1 inh inhalation BID Qty: 10.2 6RF finasteride 5 mg tablet 5 mg PO DAILY Qty: 90 3RF albuterol sulfate 2.5 mg /3 mL (0.083 %) solution for nebulization 2.5 mg inhalation Q4H PRN (Reason: shortness of breath or wheezing) Qty: 1 mesalamine 0.375 gram capsule,extended release 24hr 1.5 g PO QAM Rx Instructions: TAKES 4 TABS. clotrimazole-betamethasone 1-0.05 % cream 1 appln topical BID PRN (Reason: Rash) multivitamin Tablet 1 tab PO QAM loperamide 2 mg Capsule 2 mg PO BID ascorbic acid (vitamin C) [Vitamin C] 500 mg Tablet 500 mg PO QAM vitamin B complex Tablet 1 tab PO QAM colestipol 1 gram tablet 1 g PO BID levothyroxine 112 mcg tablet 112 mcg PO QAM cholecalciferol (vitamin D3) [Vitamin D3] 1,000 unit Tablet,Chewable 1,000 unit PO QAM potassium chloride 10 mEq capsule, extended release 10 meq PO QAM Discharge Orders: Discharge Order (Routine); Ordered 09/13/22 Ordered By: Crow Mathew/Other Patient Handouts: Small Bowel Obstruction, Low-Fiber Diet, How the Colon Works Admission Data Admit Date/Time: 09/10/22 04:29 Attending Provider: Crow Morris Admit Provider: David Barbosa Primary Care Provider: Jocelyne Cook Other Providers: David Barbosa ; Henrique Rodriguez ; Armida Acuña ; Mitchell Larsen Other Interventions: Discharge Summary Assessment (RN) Last Done: 09/13/22 10:32 Coding Level of Care Code D/C DAY MANAGEMENT <30 MINS Diagnoses Small bowel obstruction K56.609 COPD (chronic obstructive pulmonary disease) J44.9 BPH loc w urin obs/LUTS N40.1 Hypertension I10 Hypothyroid E03.9 Crohns disease K50.90
== END 2022-09-13 11:06 | disposition home or self-care (01) | DRG 387 ==
LOC: ED 00:43 → SUATTDRO 04:29 → 3W 04:29

== ENCOUNTER 2023-11-18 18:09 | Inpatient (IN) ==
--- NOTE | 2023-11-18 18:30 | ED Triage Note ---
Date of Service November 18, 2023 Provider in Triage Author: Elana Robles History of Present Illness This patient was briefly evaluated while in triage. An abbreviated physical exam was performed. This patient is a 72-year-old Male who presents to the ED for evaluation of cough, weakness and shortness of breath x 3 days. Patient denies chest pain or fevers. Physical Exam VITALS: Vitals are noted on the nurse's note and reviewed by myself. GENERAL: This is a 72-year-old male, ill-appearing. HEART: Regular rate and rhythm without murmurs gallops or rubs. LUNGS: Decreased breath sounds throughout. NEURO: Patient was alert and oriented to person place and time. Initial orders for labs and / or imaging were placed and patient was placed in the waiting area until a bed is available. Please see further documentation for the full ED course.
--- NOTE | 2023-11-18 18:43 | XRay Report ---
XR chest 1V portable CLINICAL HISTORY: Cough. Shortness of breath. COMPARISON STUDY: Chest radiograph May 29, [address] February 03, 2023. FINDINGS: Lung volumes are normal. Lungs are clear. There is no pneumothorax or pleural effusion. Car diac size is normal. Mediastinal contours are normal. There is no evidence for pulmonary edema. IMPRESSION: No acute cardiopulmonary findings. ACT 112: Negative or not required by law. Electronically signed by: Carl Wu M.D. 11/18/2023 6:40 PM
[2023-11-18 19:08] LABS: Basophils # (auto) 0.01 K/uL (0.00-0.20); Basophils % (auto) 0.1 %; Eosinophils # (auto) 0.01 K/uL (0.00-0.50); Eosinophils % (auto) 0.1 %; Hemoglobin 13.1 g/dl (14.0-18.0); Immature Granulocytes # (auto) 0.03 K/uL (0.01-0.20); Immature Granulocytes % (auto) 0.3 %; Lymphocytes # (auto) 0.93 K/uL (1.20-3.40); Lymphocytes % (auto) 10.1 %; Mean Corpuscular Hemoglobin 27.7 pg (25.0-34.0); Mean Corpuscular Volume 86.7 fL (80.0-100.0); Mean Platelet Volume 10.2 fL (9.4-12.4); Monocytes # (auto) 0.78 K/uL (0.11-0.59); Monocytes % (auto) 8.5 %; Neutrophils # (auto) 7.45 K/uL (1.40-6.50); Neutrophils % (auto) 80.9 %; Platelet Count 370 K/uL (130-400); RDW Coefficient of Variation 15.9 % (11.5-14.5); RDW Standard Deviation 50.5 fL (36.4-46.3); Red Blood Count 4.73 M/uL (4.70-6.10); White Blood Count 9.21 K/ul (4.8-10.8)
[2023-11-18] MEDS: methylPREDNISolone 125 MG/2 ML VIAL IV STA (19:18)
[2023-11-18] MEDS: ALBUT/IPRATROP 3MG/0.5MG NEB 3 ML VIAL NEB STA ×2 (19:18→21:17)
[2023-11-18 19:26] LABS: Albumin Globulin Ratio 1.1 (0.9-2); Albumin Level 3.9 gm/dl (3.4-5.0); BUN Creatinine Ratio 13.8 (10-20); Calcium 9.1 mg/dl (8.6-10.3); Creatinine Clr Calc Pharmacy 86.6 ml/min; Est GFR (African American) 93.5 ml/min; Est GFR (Non-African American) 80.7 ml/min; Globulin 3.4 gm/dl (2.5-4.0); Total Protein 7.3 gm/dl (6.0-8.3)
[2023-11-18 19:33] LABS: Troponin I High Sensitivity 10.7 pg/ml (0-20)
[2023-11-18 19:54] LABS: Adenovirus PCR Not Detected (NotDetected); Bordetella parapertussis PCR Not Detected (NotDetected); Bordetella pertussis PCR Not Detected (NotDetected); Chlamydia pneumoniae PCR Not Detected (NotDetected); Coronavirus 229E PCR Not Detected (NotDetected); Coronavirus CoV-2 (COVID19)PCR Not Detected (NotDetected); Coronavirus HKU1 PCR Not Detected (NotDetected); Coronavirus NL63 PCR Not Detected (NotDetected); Coronavirus OC43PCR Not Detected (NotDetected); Human Metapneumovirus PCR Not Detected (NotDetected); Influenza A PCR Not Detected (NotDetected); Influenza B PCR Not Detected (NotDetected); Mycoplasma pneumoniae PCR Not Detected (NotDetected); Parainfluenza Virus 1 PCR Not Detected (NotDetected); Parainfluenza Virus 2 PCR Not Detected (NotDetected); Parainfluenza Virus 3 PCR Not Detected (NotDetected); Parainfluenza Virus 4 PCR Not Detected (NotDetected); Respiratory Syncytial VirusPCR Not Detected (NotDetected); Rhinovirus/Enterovirus PCR Not Detected (NotDetected)
[2023-11-18] MEDS: OPTIRAY 320 125ml IV ONE (20:47)
[2023-11-18] MEDS: SODIUM CHLORIDE 0.9% 1,000 ML IV SCH (20:54)
[2023-11-18] MEDS: SODIUM CHLORIDE 0.9% 500 ML IV ONE (20:55)
--- NOTE | 2023-11-18 21:13 | CT Scan Report ---
Exam(s): CTA CHEST IV Amt: 118 ml optiray 320 EXAM: CT Angiography Chest With Intravenous Contrast CLINICAL HISTORY: Reason for exam: SOB, hypoxia, clear CXR. TECHNIQUE: Axial computed tomographic angiography images of the chest with intravenous contrast. CTDI is 55.96 mGy and DLP is 898.59 mGy-cm. Automated exposure control was utilized for the study. A dose lowering technique was utilized adhering to the principles of ALARA. MIP reconstructed images were created and reviewed. COMPARISON: 05/10/2023. FINDINGS: Pulmonary arteries: Unremarkable. Normal enhancement of the pulmonary arteries with no filling defect to suggest pulmonary embolus. Aorta: Mild atherosclerotic disease of aorta with no aneurysm or dissection. Lungs: Mild emphysematous changes within the lung apices. Mild bilateral lower lobe atelectasis. No mass. Pleural space: Mild biapical pleural thickening with subpleural scarring. No significant effusion. No pneumothorax. Heart: Unremarkable. No cardiomegaly. No significant pericardial effusion. No evidence of RV dysfunction. Normal cardiac size. Bones/joints: Multilevel degenerative disease of the spine with possible osteopenia. No acute fracture. No dislocation. Soft tissues: Unremarkable. Lymph nodes: Unremarkable. No enlarged lymph nodes. Other findings: Abdominal structures are unremarkable. IMPRESSION: 1. No pulmonary embolus or aortic dissection. 2. Mild bilateral lower lobe atelectasis with underlying emphysematous changes as described. Electronically signed by: Leigh Ann Barajas MD 11/18/23 21:12 PM
--- NOTE | 2023-11-18 22:53 | History & Physical Report ---
Date of Service November 18, 2023 Assessment & Plan (1) SOB (shortness of breath): Plan: Patient reports 3 days of progressive dyspnea as well as productive cough. Acute hypoxic respiratory failure in the ER requiring placement of supplemental oxygen by nasal cannula. Patient is feeling improved. CTA of the chest as above with mild bilateral lower lobe atelectasis with underlying emphysema. Respiratory bio fire panel was negative. Question acute exacerbation of COPD/asthma as underlying cause of patient's symptoms. Admit to medical Check sputum culture Continue supplemental oxygen as needed to maintain adequate oxygenation, humidify oxygen -Doxycycline 100 mg p.o. twice daily Solu-Medrol 40 mg IV daily Mucinex 1200 mg p.o. twice daily Flutter valve 4 times daily Continue home tiotropium Continue home budesonide/formoterol Continue IV hydration with LR at 125 mL/h x 2 L (2) Crohn's disease in remission: Plan: Noted. Continue mesalamine (3) Hypertension: Plan: Blood pressure mildly elevated 156/76 Patient currently not on any home blood pressure medications Continue to monitor (4) Hypothyroid: Plan: Chronic. Stable. Continue Synthroid 112 mcg p.o. daily History of Present Illness Chief Complaint: Shortness of breath Primary Care Provider: Jocelyne Cook Mark Boone is a 72-year-old male with history of severe persistent asthma and COPD overlap syndrome, prior bronchiectasis per patient presenting with 3 days of persistent shortness of breath and cough productive for clear, thick mucus (nonpurulent, nonbloody). He reports significant dyspnea with minimal exertion in his homebecomes short of breath after walking approximately 10 feet. He has been coughing significantly causing him chest pain. He denies fevers or chills. He denies edema, orthopnea or weight gain. He has had 2 episodes of diarrhea but otherwise denies abdominal pain, nausea, vomiting. No use of oxygen at home. In the ER he is afebrile, hemodynamically stable. Hypoxic in the ER at 89% on room air. He was placed on supplemental oxygen by nasal cannula and is now satu rating at 94 to 95%. Patient does not use oxygen at home nor does he use CPAP. ER course: Albuterol 3 mL neb Solu-Medrol 124 mg IV Allergies Allergy/AdvReac Type Severity Reaction Status Date / Time No Known Allergies Allergy Verified 08/22/23 12:42 Home Medications Medication Instructions Recorded Confirmed Type ascorbic acid (vitamin C) 500 mg 500 mg PO QAM 09/01/18 08/22/23 History tablet (Vitamin C) cholecalciferol (vitamin D3) 25 1,000 unit PO QAM 09/01/18 08/22/23 History mcg (1,000 unit) chewable tablet (Vitamin D3) colestipol 1 gram tablet 1 g PO BID 09/01/18 08/22/23 History levothyroxine 112 mcg tablet 112 mcg PO QAM 09/01/18 08/22/23 History loperamide 2 mg capsule (Imodium 2 mg PO QAM 09/01/18 08/22/23 History A-D) multivitamin 1 tab PO QAM 09/01/18 08/22/23 History clotrimazole-betamethasone 1 1 appln topical BID PRN Rash 04/30/19 08/22/23 History %-0.05 % topical cream mesalamine 0.375 gram 1.5 g PO QAM 04/30/19 08/22/23 History capsule,extended release 24 hr hydroxyzine HCl 25 mg tablet 25 mg PO DAILY PRN ANXIETY/SLEEP 09/16/21 08/22/23 History potassium chloride 10 mEq 10 meq PO QAM 09/10/22 08/22/23 History capsule,extended release ferrous sulfate 325 mg (65 mg 325 mg PO QAM 02/03/23 08/22/23 History iron) tablet omeprazole 20 mg capsule,delayed 20 mg PO QAM 02/03/23 08/22/23 History release rosuvastatin 10 mg tablet (Crestor) 10 mg PO HS 02/03/23 08/22/23 History vedolizumab 300 mg intravenous See Rx Instructions IV .COMPLEX 04/05/23 08/22/23 History solution (Entyvio) budesonide-formoterol HFA 160 2 inh inhalation BID 08/15/23 08/22/23 History mcg-4.5 mcg/actuation aerosol inhaler (Symbicort) finasteride 5 mg tablet 5 mg PO QAM 08/15/23 08/22/23 History trazodone 150 mg tablet 150 mg PO HS 08/15/23 08/22/23 History benralizumab 30 mg/mL subcutaneous See Rx Instructions .Route 08/22/23 Rx syringe (Fasenra) .COMPLEX #1 ea tamsulosin 0.4 mg capsule (Flomax) 0.8 mg (2 x 0.4 mg) PO HS BPH #180 08/22/23 Rx caps tiotropium bromide 2.5 2 inh inhalation QAM #12 grams 10/17/23 Rx mcg/actuation mist for inhalation (Spiriva Respimat) albuterol sulfate 90 mcg/actuation 1 puff inhalation Q6H PRN 11/09/23 Rx aerosol inhaler (ProAir HFA) Shortness Of Breath #8.5 grams Past Med/Surg History Medical History History of esophageal dilatation (~2002) Small bowel obstruction 08/2022 - treated at [facility] with NG Tube - no surgery. Severe persistent asthma History of melanoma Eosinophilia ADELAIDA (obstructive sleep apnea) pt denies Crohns disease COPD (chronic obstructive pulmonary disease) inhaler/nebulizer prn Hypertension Hypothyroid Crohn's disease in remission currently having a flare- following with Dr Schmitz Diastolic heart failure Pneumonia hx ~2017, where his breathing from there had worsened and follows with [facility] Pulmonary currently. Surgical History History of esophagogastroduodenoscopy (EGD) (~2002) Hx of vasectomy History of melanoma excision above right eye History of tooth extraction all lower teeth/partial upper History of tonsillectomy History of bilateral cataract extraction History of cardiac catheterization 03/2017 @ [facility] with Dr. Teague--NO stents History of bronchoscopy multiple History of colonoscopy with polypectomy Family History Other Hypertension No family history of adverse response to anesthesia No significant family history Denies family history of Myocardial infarction Stroke Social History Smoking Status: Never smoker Age Started Using Tobacco: 17; Age Quit Using Tobacco: 50; Second Hand Exposure: Yes (parents smoked); Do You Dip or Chew Tobacco: No; Hx Alcohol Use: Yes Alcohol type: hard liquor Alcohol Intake Frequency Comment: 1x per month, 1-3 drinks per sitting Hx Substance Use: No Preferred Language: Wolof Communication Ability: Effective Visual Impairment: No Limitations Hearing Ability: Normal International Account Representative Required: No Beliefs That Will Affect Care: None Current Living Situation: Spouse Current Living Situation Comment: Lives with and stepson Feels Safe at Home: Yes Safety Concerns: Feels Safe At This Time Assistive Devices: Denture - Upper, Denture - Lower, Glasses and Oxygen - Continuous Review of Systems Review of Systems: All systems reviewed & are unremarkable except as noted in HPI & below Physical Exam Physical Exam: General: patient resting comfortably, NAD, non-toxic in appearance, AA&O x 4 Skin: warm, dry, intact, no rashes or lesions HEENT: NC/AT, PERRL, EOMI, anicteric sclera, conjunctiva without injection, external ear normal to inspection and nontender, nares patent, moist mucus membranes, dentition intact, no oropharyngeal lesions, neck supple, trachea midline, no LAD, no thyromegaly, no JVD Heart: +S1/S2, regular, no m/r/g Lungs: equal air entry bilaterally, coarse rhonchi appreciated in bilateral lungs, faint scattered end expiratory wheezing, cough Abd: +BS, soft, NT/ND, no masses/organomegaly/ascites Ext: warm, 2+ pulses in UE/LE bilaterally, no clubbing/cyanosis or edema Neuro: nonfocal, patient AA&O x 4, speech intact, no facial droop, moving all extremities on command with equal strength 5/5 Results & Data Results & Data Vital Signs (Past 12 Hours) Vital Signs Temp Pulse Pulse Resp BP BP Pulse Ox 11/18/23 22:00 66 21 154/67 H 95 11/18/23 20:22 68 17 147/73 H 93 11/18/23 19:32 68 11/18/23 18:34 71 21 92 11/18/23 18:34 21 92 11/18/23 18:27 36.6 C 86 18 165/77 H 89 L O2 Del Method O2 Flow Rate 11/18/23 22:00 Nasal Cannula 2 11/18/23 20:22 Nasal Cannula 2 11/18/23 19:32 11/18/23 18:34 Room Air 11/18/23 18:34 Room Air 11/18/23 18:27 Room Air Laboratory Results Laboratory Results WBC 9.21 K/ul (4.8-10.8) 11/18/23 18:45 RBC 4.73 M/uL (4.70-6.10) 11/18/23 18:45 Hgb 13.1 g/dl (14.0-18.0) L 11/18/23 18:45 Hct 41.0 % (42.0-52.0) L 11/18/23 18:45 MCV 86.7 fL (80.0-100.0) 11/18/23 18:45 MCH 27.7 pg (25.0-34.0) 11/18/23 18:45 MCHC 32.0 g/dL (32.0-36.0) 11/18/23 18:45 RDW Std Deviation 50.5 fL (36.4-46.3) H 11/18/23 18:45 RDW Coeff of Ryan 15.9 % (11.5-14.5) H 11/18/23 18:45 Plt Count 370 K/uL (130-400) 11/18/23 18:45 MPV 10.2 fL (9.4-12.4) 11/18/23 18:45 Immature Gran % (Auto) 0.3 % 11/18/23 18:45 Neut % (Auto) 80.9 % 11/18/23 18:45 Lymph % (Auto) 10.1 % 11/18/23 18:45 [place] % (Auto) 8.5 % 11/18/23 18:45 Eos % (Auto) 0.1 % 11/18/23 18:45 Baso % (Auto) 0.1 % 11/18/23 18:45 Neut # (Auto) 7.45 K/uL (1.40-6.50) H 11/18/23 18:45 Lymph # (Auto) 0.93 K/uL (1.20-3.40) L 11/18/23 18:45 [place] # (Auto) 0.78 K/uL (0.11-0.59) H 11/18/23 18:45 Eos # (Auto) 0.01 K/uL (0.00-0.50) 11/18/23 18:45 Baso # (Auto) 0.01 K/uL (0.00-0.20) 11/18/23 18:45 Immature Gran # (Auto) 0.03 K/uL (0.01-0.20) 11/18/23 18:45 Sodium 136 mmol/L (136-145) 11/18/23 18:45 Potassium 4.0 mmol/L (3.5-5.1) 11/18/23 18:45 Chloride 101 mmol/L (98-107) 11/18/23 18:45 Carbon Dioxide 27 mmol/L (21-32) 11/18/23 18:45 Anion Gap 8 (3-11) 11/18/23 18:45 BUN 13 mg/dl (6-23) 11/18/23 18:45 Creatinine 0.94 mg/dl (0.6-1.4) 11/18/23 18:45 Est Cr Clr Drug Dosing 86.6 ml/min 11/18/23 18:45 Est GFR ( Amer) 93.5 ml/min 11/18/23 18:45 Est GFR (Non-Af Amer) 80.7 ml/min 11/18/23 18:45 BUN/Creatinine Ratio 13.8 (10-20) 11/18/23 18:45 Glucose 154 mg/dl (70-99(Fasting)) H 11/18/23 18:45 Lactate 2.0 mmol/L (0.4-2.0) 11/18/23 20:58 Calcium 9.1 mg/dl (8.6-10.3) 11/18/23 18:45 Total Bilirubin 1.0 mg/dl (0.2-1.0) 11/18/23 18:45 AST 24 U/L (13-39) 11/18/23 18:45 ALT 24 U/L (7-52) 11/18/23 18:45 Alkaline Phosphatase 84 U/L (34-104) 11/18/23 18:45 Troponin I High Sens 10.7 pg/ml (0-20) 11/18/23 18:45 B-Natriuretic Peptide 42 pg/ml (0-100) 11/18/23 18:45 Total Protein 7.3 gm/dl (6.0-8.3) 11/18/23 18:45 Albumin 3.9 gm/dl (3.4-5.0) 11/18/23 18:45 Globulin 3.4 gm/dl (2.5-4.0) 11/18/23 18:45 Albumin/Globulin Ratio 1.1 (0.9-2) 11/18/23 18:45 Adenovirus (PCR) Not Detected (NotDetected) 11/18/23 18:40 B. pertussis DNA (PCR) Not Detected (NotDetected) 11/18/23 18:40 B.parapertussis DNA PCR Not Detected (NotDetected) 11/18/23 18:40 C. pneumoniae DNA (PCR) Not Detected (NotDetected) 11/18/23 18:40 Coronavirus OC43 (PCR) Not Detected (NotDetected) 11/18/23 18:40 Coronavirus HKU1 (PCR) Not Detected (NotDetected) 11/18/23 18:40 Coronavirus 229E (PCR) Not Detected (NotDetected) 11/18/23 18:40 SARS-CoV-2 (PCR) Not Detected (NotDetected) 11/18/23 18:40 Coronavirus NL63 (PCR) Not Detected (NotDetected) 11/18/23 18:40 Human Metapneumovir PCR Not Detected (NotDetected) 11/18/23 18:40 Influenza Type A (PCR) Not Detected (NotDetected) 11/18/23 18:40 Influenza Type B (PCR) Not Detected (NotDetected) 11/18/23 18:40 M. pneumoniae (PCR) Not Detected (NotDetected) 11/18/23 18:40 Parainfluenza 1 (PCR) Not Detected (NotDetected) 11/18/23 18:40 Parainfluenza 2 (PCR) Not Detected (NotDetected) 11/18/23 18:40 Parainfluenza 3 (PCR) Not Detected (NotDetected) 11/18/23 18:40 Parainfluenza 4 (PCR) Not Detected (NotDetected) 11/18/23 18:40 RSV (PCR) Not Detected (NotDetected) 11/18/23 18:40 Entero/Rhino (PCR) Not Detected (NotDetected) 11/18/23 18:40 Impressions Chest X-Ray 11/18/23 18:27 XR chest 1V portable CLINICAL HISTORY: Cough. Shortness of breath. COMPARISON STUDY: Chest radiograph May 29, [address] February 03, 2023. FINDINGS: Lung volumes are normal. Lungs are clear. There is no pneumothorax or pleural effusion. Cardiac size is normal. Mediastinal contours are normal. There is no evidence for pulmonary edema. IMPRESSION: No acute cardiopulmonary findings. ACT 112: Negative or not required by law. Electronically signed by: Carl Wu M.D. 11/18/2023 6:40 PM Chest CTA 11/18/23 19:43 Exam(s): CTA CHEST IV Amt: 118 ml optiray 320 EXAM: CT Angiography Chest With Intravenous Contrast CLINICAL HISTORY: Reason for exam: SOB, hypoxia, clear CXR. TECHNIQUE: Axial computed tomographic angiography images of the chest with intravenous contrast. CTDI is 55.96 mGy and DLP is 898.59 mGy-cm. Automated exposure control was utilized for the study. A dose lowering technique was utilized adhering to the principles of ALARA. MIP reconstructed images were created and reviewed. COMPARISON: 05/10/2023. FINDINGS: Pulmonary arteries: Unremarkable. Normal enhancement of the pulmonary arteries with no filling defect to suggest pulmonary embolus. Aorta: Mild atherosclerotic disease of aorta with no aneurysm or dissection. Lungs: Mild emphysematous changes within the lung apices. Mild bilateral lower lobe atelectasis. No mass. Pleural space: Mild biapical pleural thickening with subpleural scarring. No significant effusion. No pneumothorax. Heart: Unremarkable. No cardiomegaly. No significant pericardial effusion. No evidence of RV dysfunction. Normal cardiac size. Bones/joints: Multilevel degenerative disease of the spine with possible osteopenia. No acute fracture. No dislocation. Soft tissues: Unremarkable. Lymph nodes: Unremarkable. No enlarged lymph nodes. Other findings: Abdominal structures are unremarkable. IMPRESSION: 1. No pulmonary embolus or aortic dissection. 2. Mild bilateral lower lobe atelectasis with underlying emphysematous changes as described. Electronically signed by: Leigh Ann Barajas MD 11/18/23 21:12 PM ECG Additional Comments: EKG per my interpretation with normal sinus rhythm at 78 bpm, normal axis, DE = 130, QRS = 84, QTc = 453, no acute ischemic changes PG Care Time/CCT Total # of Minutes Spent Total Time Spent with Patient: Total time spent is greater than 50% in coordination of care (as documented) at patient's floor/unit and/or counseling patient: Coding Level of Care Code 09111 INT INP/OBS CARE MIN Diagnoses SOB (shortness of breath) R06.02 Crohn's disease in remission K50.90 Hypertension I10 Hypothyroid E03.9
--- NOTE | 2023-11-18 23:45 | Emergency Department Note ---
Impression & Plan SOB (shortness of breath), Hypoxia, COPD (chronic obstructive pulmonary disease) ED Provider Note NAME: CHARLES TORRES AGE: 72 SEX: Male INFORMANT: Patient ED PROVIDER(S): Blayne Santacruz MD CHIEF COMPLAINT: Shortness of breath PLAN: Disposition: Admitted Outpatient prescription management: none Referral: None MEDICAL DECISION MAKING: Patient presented because of shortness of breath. He was requiring some low flow supplemental oxygen. He does not wear oxygen at home. Chest x-ray performed and shows chronic changes but no acute pathology. ECG was nonischemic. Patient was given a dose of Solu-Medrol and a DuoNeb treatment. He noted this did help somewhat. A second nebulizer treatment was also performed. His CBC and chemistry panel was rather unremarkable. Cardiac troponin and BNP were normal as well. Bio fire testing was negative. Due to the hypoxia and dyspnea CT imaging of the chest was performed. Thankfully no pulmonary embolism was seen. Chronic changes in both lungs noted consistent with his prior history. I suspect this is a COPD like exacerbation. The patient had an ambulatory trial and became extremely dyspneic with just a short- term follow-up. I discussed further management in the hospital. Patient was in agreement. Consultation was made with Dr. Hickman of the [facility] service. Patient was evaluated in the ER for further management. Care/management discussed with: category manager Level of care consideration(s): After review of the information above and other included data, I feel the patient requires escalation of care to admission Triage Nursing notes: reviewed and agree them. Vital Signs: reviewed and remarkable for mild hypoxia Additional History obtained from: none Chronic Medical/Social Conditions affecting care: COPD Prior/ Outside/ External records reviewed: none Differential Diagnosis: Reactive airway disease, pneumonia, pneumothorax, COPD, CHF, infections, cardiac ischemia, pulmonary embolism, musculoskeletal, gastrointestinal, as well as other pathologies. Diagnostics, independently interpreted by me: EC Lead ECG performed and revealed Normal sinus rhythm at 78 bpm, normal [place], QRS normal. No elevation or depression. No PACs or PVCs Cardiac Monitoring: Cardiac monitoring ordered by me: The patient was placed on continuous cardiac monitoring and observed. It revealed a normal sinus rhythm at 66 beats per minute without ectopy or evidence of dysrhythmia. Medical decision rules: none Imaging studies: Chest x-ray reveals findings consistent with COPD without evidence of pneumothorax or pneumonia. I refer you to the EMR for further details. HPI: 72 year old Male arrives for evaluation of shortness of breath. This started 3 days ago. Patient also notes a cough. Denies any chest pain or fever. Has a history of COPD and bronchiectasis. He notes his inhalers were not helping. Patient has found no relieving factors at home. He notes he is extremely dyspneic with ambulating a short distance of 5 to 10 feet. Pt denies LOC, headache, fevers, chills, diaphoresis, visual changes, neck pain, chest pain, nausea, vomiting, abdominal pain, back pain, sick contacts, urinary symptoms, numbness, weakness, lymphadenopathy, rash, or other complaints.. PAST MEDICAL HISTORY: See Below, COPD, bronchiectasis, pneumonia PAST SURGICAL HISTORY: See Below, SOCIAL HISTORY: See Below, HOME MEDICATIONS: See Below ALLERGIES: See Below VITALS: See Below PHYSICAL EXAMINATION: GENERAL: Awake, alert, mildly dyspneic-appearing, in no distress HENT: Normocephalic, atraumatic. Oropharynx unremarkable. EYES: Normal conjunctiva. Sclera non-icteric. NECK: Inspection normal. Non-tender. Supple. No nuchal rigidity. FROM. No masses. RESPIRATORY: Few rhonchi otherwise clear to auscultation. No wheezes. No rales. Increased respiratory effort. CARDIAC: Normal rate. Normal rhythm. No murmurs. No rubs. Extremities warm and well perfused. Pulses equal. No JVD. GI: Soft, non-distended. No tenderness to palpation. No rebound or guarding. No masses. RECTAL: Deferred. MUSCULOSKELETAL: Atraumatic. Chest examination reveals no tenderness. The back is symmetrical on inspection without obvious abnormality. There is no CVA tenderness to palpation. No joint edema. LOWER EXTREMITIES: Calves are equal size bilaterally and non-tender. No edema. No discoloration. NEURO: Normal sensorium. No sensory or motor deficits noted. SKIN: No rash or jaundice noted. PROCEDURES: none CRITICAL CARE: none OBSERVATION NOTE: none Past Med/Surg History Medical History History of esophageal dilatation (~2002) Small bowel obstruction 08/2022 - treated at [facility] with NG Tube - no surgery. Severe persistent asthma History of melanoma Eosinophilia ADELAIDA (obstructive sleep apnea) pt denies Crohns disease COPD (chronic obstructive pulmonary disease) inhaler/nebulizer prn Hypertension Hypothyroid Crohn's disease in remission currently having a flare- following with Dr Schmitz Diastolic heart failure Pneumonia hx ~2017, where his breathing from there had worsened and follows with [facility] currently. Surgical History History of esophagogastroduodenoscopy (EGD) (~2002) Hx of vasectomy History of melanoma excision above right eye History of tooth extraction all lower teeth/partial upper History of tonsillectomy History of bilateral cataract extraction History of cardiac catheterization 03/2017 @ [facility] with Dr. Teague--NO stents History of bronchoscopy multiple History of colonoscopy with polypectomy Family History Other Hypertension No family history of adverse response to anesthesia No significant family history Denies family history of Myocardial infarction Stroke Social History Smoking Status: Never smoker Age Started Using Tobacco: 17; Age Quit Using Tobacco: 50; Second Hand Exposure: Yes (parents smoked); Do You Dip or Chew Tobacco: No; Hx Alcohol Use: Yes Alcohol type: hard liquor Alcohol Intake Frequency Comment: 1x per month, 1-3 drinks per sitting Hx Substance Use: No Preferred Language: Algerian Communication Ability: Effective Visual Impairment: No Limitations Hearing Ability: Normal Scrum Master Required: No Beliefs That Will Affect Care: None Current Living Situation: Spouse Current Living Situation Comment: Lives with and stepson Feels Safe at Home: Yes Assistive Devices: Denture - Upper, Denture - Lower and Glasses Allergies Allergies Allergy/AdvReac Type Severity Reaction Status Date / Time No Known Allergies Allergy Verified 08/22/23 12:42 Home Meds Home Medications Medication Instructions Recorded Confirmed ascorbic acid (vitamin C) 500 mg 500 mg PO QAM 09/01/18 08/22/23 tablet (Vitamin C) cholecalciferol (vitamin D3) 25 1,000 unit PO QAM 09/01/18 08/22/23 mcg (1,000 unit) chewable tablet (Vitamin D3) colestipol 1 gram tablet 1 g PO BID 09/01/18 08/22/23 levothyroxine 112 mcg tablet 112 mcg PO QAM 09/01/18 08/22/23 loperamide 2 mg capsule (Imodium 2 mg PO QAM 09/01/18 08/22/23 A-D) multivitamin 1 tab PO QAM 09/01/18 08/22/23 clotrimazole-betamethasone 1 1 appln topical BID PRN Rash 04/30/19 08/22/23 %-0.05 % topical cream mesalamine 0.375 gram 1.5 g PO QAM 04/30/19 08/22/23 capsule,extended release 24 hr hydroxyzine HCl 25 mg tablet 25 mg PO DAILY PRN ANXIETY/SLEEP 09/16/21 08/22/23 potassium chloride 10 mEq 10 meq PO QAM 09/10/22 08/22/23 capsule,extended release ferrous sulfate 325 mg (65 mg 325 mg PO QAM 02/03/23 08/22/23 iron) tablet omeprazole 20 mg capsule,delayed 20 mg PO QAM 02/03/23 08/22/23 release rosuvastatin 10 mg tablet (Crestor) 10 mg PO HS 02/03/23 08/22/23 vedolizumab 300 mg intravenous See Rx Instructions IV .COMPLEX 04/05/23 08/22/23 solution (Entyvio) budesonide-formoterol HFA 160 2 inh inhalation BID 08/15/23 08/22/23 mcg-4.5 mcg/actuation aerosol inhaler (Symbicort) finasteride 5 mg tablet 5 mg PO QAM 08/15/23 08/22/23 trazodone 150 mg tablet 150 mg PO HS 08/15/23 08/22/23 Previous Rx's Medication Instructions Recorded benralizumab 30 mg/mL subcutaneous See Rx Instructions .Route 08/22/23 syringe (Fasenra) .COMPLEX #1 ea tamsulosin 0.4 mg capsule (Flomax) 0.8 mg (2 x 0.4 mg) PO HS BPH #180 08/22/23 caps tiotropium bromide 2.5 2 inh inhalation QAM #12 grams 10/17/23 mcg/actuation mist for inhalation (Spiriva Respimat) albuterol sulfate 90 mcg/actuation 1 puff inhalation Q6H PRN 11/09/23 aerosol inhaler (ProAir HFA) Shortness Of Breath #8.5 grams Results & Data (ED) Vital Signs Vital Signs - 24 hr 11/18/23 18:27 11/18/23 18:34 11/18/23 18:34 Temperature 36.6 C Temperature Source Temporal Artery Scan Pulse Rate 86 71 Pulse Rate [Right Finger] Pulse Rhythm Regular Respiratory Rate 18 21 21 Respiratory Effort / Characteristics Non-Labored Non-Labored Spontaneous Respiratory Depth Normal Normal Respiratory Pattern Regular Regular Blood Pressure 165/77 H Blood Pressure [Right Arm] Blood Pressure Mean 106 Blood Pressure Mean [Right Arm] Pulse Oximetry 89 L 92 92 Oxygen Delivery Method Room Air Room Air Room Air Oxygen Flow Rate Sepsis Recent Fever Within 48 Hours No Sepsis New/Unexplained Change in Mental Status N/A Sepsis Action Taken by Nursing No Action Required 11/18/23 19:32 11/18/23 20:22 11/18/23 22:00 Temperature Temperature Source Pulse Rate 68 Pulse Rate [Right Finger] 68 66 Pulse Rhythm Respiratory Rate 17 21 Respiratory Effort / Characteristics Respiratory Depth Respiratory Pattern Blood Pressure Blood Pressure [Right Arm] 147/73 H 154/67 H Blood Pressure Mean Blood Pressure Mean [Right Arm] 97 96 Pulse Oximetry 93 95 Oxygen Delivery Method Nasal Cannula Nasal Cannula Oxygen Flow Rate 2 2 Sepsis Recent Fever Within 48 Hours Sepsis New/Unexplained Change in Mental Status Sepsis Action Taken by Nursing Laboratory Data 11/18/23 18:45 11/18/23 18:45 Lab Results 11/18/23 11/18/23 11/18/23 Range/Units 18:40 18:45 20:58 WBC 9.21 (4.8-10.8) K/ul RBC 4.73 (4.70-6.10) M/uL Hgb 13.1 L (14.0-18.0) g/dl Hct 41.0 L (42.0-52.0) % MCV 86.7 (80.0-100.0) fL MCH 27.7 (25.0-34.0) pg MCHC 32.0 (32.0-36.0) g/dL RDW Std Deviation 50.5 H (36.4-46.3) fL RDW Coeff of Ryan 15.9 H (11.5-14.5) % Plt Count 370 (130-400) K/uL MPV 10.2 (9.4-12.4) fL Immature Gran % (Auto) 0.3 % Neut % (Auto) 80.9 % Lymph % (Auto) 10.1 % [place] % (Auto) 8.5 % Eos % (Auto) 0.1 % Baso % (Auto) 0.1 % Neut # (Auto) 7.45 H (1.40-6.50) K/uL Lymph # (Auto) 0.93 L (1.20-3.40) K/uL [place] # (Auto) 0.78 H (0.11-0.59) K/uL Eos # (Auto) 0.01 (0.00-0.50) K/uL Baso # (Auto) 0.01 (0.00-0.20) K/uL Immature Gran # (Auto) 0.03 (0.01-0.20) K/uL Sodium 136 (136-145) mmol/L Potassium 4.0 (3.5-5.1) mmol/L Chloride 101 (98-107) mmol/L Carbon Dioxide 27 (21-32) mmol/L Anion Gap 8 (3-11) BUN 13 (6-23) mg/dl Creatinine 0.94 (0.6-1.4) mg/dl Est Cr Clr Drug Dosing 86.6 ml/min Est GFR ( Amer) 93.5 ml/min Est GFR (Non-Af Amer) 80.7 ml/min BUN/Creatinine Ratio 13.8 (10-20) Glucose 154 H (70-99(Fasting)) mg/dl Lactate 2.7 H* 2.0 (0.4-2.0) mmol/L Calcium 9.1 (8.6-10.3) mg/dl Total Bilirubin 1.0 (0.2-1.0) mg/dl AST 24 (13-39) U/L ALT 24 (7-52) U/L Alkaline Phosphatase 84 (34-104) U/L Troponin I High Sens 10.7 (0-20) pg/ml B-Natriuretic Peptide 42 (0-100) pg/ml Total Protein 7.3 (6.0-8.3) gm/dl Albumin 3.9 (3.4-5.0) gm/dl Globulin 3.4 (2.5-4.0) gm/dl Albumin/Globulin Ratio 1.1 (0.9-2) Adenovirus (PCR) Not Detected (NotDetected) B. pertussis DNA (PCR) Not Detected (NotDetected) B.parapertussis DNA PCR Not Detected (NotDetected) C. pneumoniae DNA (PCR) Not Detected (NotDetected) Coronavirus OC43 (PCR) Not Detected (NotDetected) Coronavirus HKU1 (PCR) Not Detected (NotDetected) Coronavirus 229E (PCR) Not Detected (NotDetected) SARS-CoV-2 (PCR) Not Detected (NotDetected) Coronavirus NL63 (PCR) Not Detected (NotDetected) Human Metapneumovir PCR Not Detected (NotDetected) Influenza Type A (PCR) Not Detected (NotDetected) Influenza Type B (PCR) Not Detected (NotDetected) M. pneumoniae (PCR) Not Detected (NotDetected) Parainfluenza 1 (PCR) Not Detected (NotDetected) Parainfluenza 2 (PCR) Not Detected (NotDetected) Parainfluenza 3 (PCR) Not Detected (NotDetected) Parainfluenza 4 (PCR) Not Detected (NotDetected) RSV (PCR) Not Detected (NotDetected) Entero/Rhino (PCR) Not Detected (NotDetected) Administered Medications Sodium Chloride (Nss) 1,000 mls @ 125 mls/hr IV .Q8H VILMA Stop: 12/18/23 19:44 Last Admin: 11/18/23 20:54 Dose: 125 mls/hr Documented By: ORIANA Discontinued Medications Albuterol (Albut/Ipratrop 3mg/0.5mg Neb 3 Ml Vial) 3 ml NEB NOW STA; Protocol Stop: 11/18/23 18:43 Last Admin: 11/18/23 19:18 Dose: 3 ml Documented By: CHARISSA Albuterol (Albut/Ipratrop 3mg/0.5mg Neb 3 Ml Vial) 3 ml NEB NOW STA; Protocol Stop: 11/18/23 21:08 Last Admin: 11/18/23 21:17 Dose: 3 ml Documented By: CHARISSA Sodium Chloride (Nss) 500 mls @ 999 mls/hr IV .Q31M ONE Stop: 11/18/23 20:13 Last Admin: 11/18/23 20:55 Dose: 999 mls/hr Documented By: ORIANA Ioversol (Optiray 320 125ml) 118 ml IV ONCE ONE Stop: 11/18/23 20:48 Last Admin: 11/18/23 20:47 Dose: 118 ml Documented By: SONY Methylprednisolone (Methylprednisolone 125 Mg/2 Ml Vial) 125 mg IV NOW STA Stop: 11/18/23 18:43 Last Admin: 11/18/23 19:18 Dose: 125 mg Documented By: CHARISSA Imaging Data Radiologist's Impression: Chest X-Ray 11/18/23 18:27 XR chest 1V portable CLINICAL HISTORY: Cough. Shortness of breath. COMPARISON STUDY: Chest radiograph May 29, [address] February 03, 2023. FINDINGS: Lung volumes are normal. Lungs are clear. There is no pneumothorax or pleural effusion. Cardiac size is normal. Mediastinal contours are normal. There is no evidence for pulmonary edema. IMPRESSION: No acute cardiopulmonary findings. ACT 112: Negative or not required by law. Electronically signed by: Carl Wu M.D. 11/18/2023 6:40 PM Chest CTA 11/18/23 19:43 Exam(s): CTA CHEST IV Amt: 118 ml optiray 320 EXAM: CT Angiography Chest With Intravenous Contrast CLINICAL HISTORY: Reason for exam: SOB, hypoxia, clear CXR. TECHNIQUE: Axial computed tomographic angiography images of the chest with intravenous contrast. CTDI is 55.96 mGy and DLP is 898.59 mGy-cm. Automated exposure control was utilized for the study. A dose lowering technique was utilized adhering to the principles of ALARA. MIP reconstructed images were created and reviewed. COMPARISON: 05/10/2023. FINDINGS: Pulmonary arteries: Unremarkable. Normal enhancement of the pulmonary arteries with no filling defect to suggest pulmonary embolus. Aorta: Mild atherosclerotic disease of aorta with no aneurysm or dissection. Lungs: Mild emphysematous changes within the lung apices. Mild bilateral lower lobe atelectasis. No mass. Pleural space: Mild biapical pleural thickening with subpleural scarring. No significant effusion. No pneumothorax. Heart: Unremarkable. No cardiomegaly. No significant pericardial effusion. No evidence of RV dysfunction. Normal cardiac size. Bones/joints: Multilevel degenerative disease of the spine with possible osteopenia. No acute fracture. No dislocation. Soft tissues: Unremarkable. Lymph nodes: Unremarkable. No enlarged lymph nodes. Other findings: Abdominal structures are unremarkable. IMPRESSION: 1. No pulmonary embolus or aortic dissection. 2. Mild bilateral lower lobe atelectasis with underlying emphysematous changes as described. Electronically signed by: Leigh Ann Barajas MD 11/18/23 21:12 PM Discharge Plan Visit Data Chief Complaint: Flu Like Symptoms Stated Complaint: WEAKNESS, SEVERE COUGH ED Provider: Blayne Santacruz Discharge Problem: SOB (shortness of breath), Hypoxia, COPD (chronic obstructive pulmonary disease) Forms Stand Alone Forms: [facility] Prescriptions Prescriptions: No Action Fasenra 30 mg/mL syringe See Rx Instructions .ROUTE .COMPLEX Qty: 1 11RF Dose Instruction: INJECT 30 MG (ONE SYRINGE) SUBCUTANEOUSLY (UNDER THE SKIN) EVERY 8 WEEKS Rx Instructions: INJECT 30 MG (ONE SYRINGE) SUBCUTANEOUSLY (UNDER THE SKIN) EVERY 8 WEEKS APPROVED through pharmacy benefit GOOD 05/31/23 - 07/30/24 APPROVED through medical benefit GOOD 08/20/23 - 08/18/24 tamsulosin [Flomax] 0.4 mg capsule 0.8 mg PO HS Qty: 180 1RF Spiriva Respimat 2.5 mcg/actuation mist 2 inh inhalation QAM Qty: 12 1RF albuterol sulfate [ProAir HFA] 90 mcg/actuation HFA aerosol inhaler 1 puff INHALATION Q6H PRN (Reason: Shortness Of Breath) Qty: 8.5 3RF Entyvio 300 mg recon soln See Rx Instructions IV .COMPLEX Rx Instructions: IV every 4 weeks; hydroxyzine HCl 25 mg tablet 25 mg PO DAILY PRN (Reason: ANXIETY/SLEEP) mesalamine 0.375 gram capsule,extended release 24hr 1.5 g PO QAM Rx Instructions: TAKES 4 TABS. clotrimazole-betamethasone 1-0.05 % cream 1 appln topical BID PRN (Reason: Rash) Fasenra Pen 30 mg/mL auto-injector 30 mg subcut ONCE Qty: 1 0RF multivitamin Tablet 1 tab PO QAM loperamide [Imodium A-D] 2 mg Capsule 2 mg PO QAM ascorbic acid (vitamin C) [Vitamin C] 500 mg Tablet 500 mg PO QAM colestipol 1 gram tablet 1 g PO BID levothyroxine 112 mcg tablet 112 mcg PO QAM cholecalciferol (vitamin D3) [Vitamin D3] 1,000 unit Tablet,Chewable 1,000 unit PO QAM potassium chloride 10 mEq capsule, extended release 10 meq PO QAM omeprazole 20 mg capsule,delayed release(DR/EC) 20 mg PO QAM rosuvastatin [Crestor] 10 mg tablet 10 mg PO HS ferrous sulfate 325 mg (65 mg iron) Tablet 325 mg PO QAM trazodone 150 mg Tablet 150 mg PO HS finasteride 5 mg tablet 5 mg PO QAM budesonide-formoterol [Symbicort] 160-4.5 mcg/actuation HFA aerosol inhaler 2 inh inhalation BID Referrals Referrals: Jocelyne Cook [Primary Care Provider] -
[2023-11-19] MEDS ORDERED: ACETAMINOPHEN 325 MG TAB PO PRN (01:17)
[2023-11-19] MEDS ORDERED: ONDANSETRON INJ 2 MG/ML 2 ML VIAL IV PRN (01:17)
[2023-11-19] MEDS: LACTATED RINGER'S 1,000 ML IV SCH (02:11)
[2023-11-19] MEDS: LEVOTHYROXINE SODIUM 112 MCG TABLET PO SCH (05:33)
--- NOTE | 2023-11-19 08:44 | Hospitalist Progress Note ---
Date of Service November 19, 2023 Assessment & Plan (1) SOB (shortness of breath): Plan: Patient reports 3 days of progressive dyspnea as well as productive cough. Acute hypoxic respiratory failure in the ER requiring placement of supplemental oxygen by nasal cannula. Patient is feeling improved. CTA of the chest as above with mild bilateral lower lobe atelectasis with underlying emphysema. Respiratory bio fire panel was negative. Question acute exacerbation of COPD/asthma as underlying cause of patient's symptoms. Admit to medical Check sputum culture Continue supplemental oxygen as needed to maintain adequate oxygenation, humidify oxygen -Doxycycline 100 mg p.o. twice daily Solu-Medrol 40 mg IV daily Mucinex 1200 mg p.o. twice daily Flutter valve 4 times daily Continue home tiotropium Continue home budesonide/formoterol - duo nebs VILMA Q4H Continue IV hydration with LR at 125 mL/h x 2 L (2) Crohn's disease in remission: Plan: Noted. Continue mesalamine (3) Hypertension: Plan: Blood pressure mildly elevated 156/76 Patient currently not on any home blood pressure medications Continue to monitor (4) Hypothyroid: Plan: Chronic. Stable. Continue Synthroid 112 mcg p.o. daily Admission and Anticipated Discharge Date Admission Date: November 18, 2023 Supervising Physician Co-Signing Physician Notes I personally examined the patient and verified alfredo points of history and exam, discussed case, and agree with decision making and plan documented by Dr. Bhupinder hollis. Patient endorses some improvement in breathing, remains on supplemental oxygen, will continue scheduled medications and wean O2 as able with clinical improvement. IVF discontinued. Subjective Patient seen at bedside this AM. Reports feeling significantly improved from admission. Reports continued SOB especially with ambulation. No CP, fevers, or chills. Review of Systems Review of Systems: See HPI Physical Exam Physical Exam: General: patient resting comfortably, NAD, non-toxic in appearance Skin: warm, dry, intact, no rashes or lesions HEENT: NC/AT, EOMI, anicteric sclera, conjunctiva without injection, external ear normal to inspection, nares patent, moist mucus membranes Heart: +S1/S2, regular, no m/r/g Lungs: equal air entry bilaterally, coarse rhonchi appreciated in bilateral lungs, diffuse wheezing, cough Abd: +BS, soft, NT/ND, no masses/organomegaly/ascites Ext: warm, 2+ pulses in UE/LE bilaterally, no clubbing/cyanosis or edema Neuro: nonfocal, patient AA&O x 4, speech intact, no facial droop, moving all extremities on command with equal strength 5/5 Results & Data Results & Data Vital Signs (Past 12 Hours) Vital Signs Temp Pulse Pulse Resp BP BP BP 11/19/23 07:50 36.3 C L 66 16 138/79 11/19/23 01:05 11/19/23 01:05 36.6 C 68 20 156/76 H 11/19/23 00:35 64 20 135/76 11/19/23 00:05 64 20 135/76 11/18/23 23:30 62 11/18/23 22:00 66 21 154/67 H Pulse Ox O2 Del Method O2 Flow Rate 11/19/23 07:50 92 Nasal Cannula 2.5 11/19/23 01:05 Nasal Cannula 2 11/19/23 01:05 95 Nasal Cannula 2 11/19/23 00:35 95 Nasal Cannula 2 11/19/23 00:05 95 Nasal Cannula 2 11/18/23 23:30 11/18/23 22:00 95 Nasal Cannula 2 Resident Activity Tracking Resident Involvement: Resident Care Provided Care Provided: Adult Hospital Medicine
[2023-11-19] MEDS: DOXYCYCLINE HYCLATE 100 MG CAP PO SCH (09:02)
[2023-11-19] MEDS: FINASTERIDE 5 MG TAB PO SCH (09:02)
[2023-11-19] MEDS: guaiFENesin 600 MG TABCR PO SCH (09:02)
[2023-11-19] MEDS: methylPREDNISolone 40 MG in SYRINGE 0 ML IV SCH (09:03)
[2023-11-19] MEDS: PANTOprazole 40 MG TAB PO SCH (09:03)
[2023-11-19] MEDS: COLESTIPOL HCL 1 GM TAB PO SCH (09:04)
[2023-11-19] MEDS: UMECLIDINIUM BROMIDE 62.5MCG/BLISTER 7 PUFFS/INHALER INH SCH (09:04)
[2023-11-19] MEDS: FLUTICASONE/VILANTEROL 200/25MCG 14 PUFFS/INHALER INH SCH (09:04)
--- NOTE | 2023-11-19 10:52 | Electrocardiogram Report ---
Test Reason : Blood Pressure : / mmHG Vent. Rate : 078 BPM Atrial Rate : 078 BPM P-R Int : 130 ms QRS Dur : 084 ms QT Int : 398 ms P-R-T Axes : 071 074 074 degrees QTc Int : 453 ms Normal sinus rhythm Normal ECG When compared with ECG of 10-SEP-2022 00:58, No significant change was found Confirmed by Tu Colon ([id number]) on 11/19/2023 10:51:50 AM Referred By: REFERRED SELF Confirmed By:Chandrakant Colon
[2023-11-19] MEDS: ALBUT/IPRATROP 3MG/0.5MG NEB 3 ML VIAL NEB SCH (11:38)
[2023-11-19] MEDS: ROSUVASTATIN CALCIUM 10 MG TAB PO SCH (21:28)
[2023-11-19] MEDS: TAMSULOSIN HCL 0.4 MG CAP PO SCH (21:29)
[2023-11-19] MEDS: traZODone HCL 50 MG TAB PO SCH (21:29)
--- NOTE | 2023-11-20 06:55 | Hospitalist Progress Note ---
Date of Service November 20, 2023 Assessment & Plan (1) SOB (shortness of breath): Plan: Patient reports 3 days of progressive dyspnea as well as productive cough. Acute hypoxic respiratory failure in the ER requiring placement of supplemental oxygen by nasal cannula. Patient is feeling improved. CTA of the chest as above with mild bilateral lower lobe atelectasis with underlying emphysema. Respiratory bio fire panel was negative. Question acute exacerbation of COPD/asthma as underlying cause of patient's symptoms. Check sputum culture, BCx NGTD x 24H Continue supplemental oxygen as needed to maintain adequate oxygenation, humidify oxygen - Doxycycline 100 mg p.o. twice daily Solu-Medrol 40 mg IV daily Mucinex 1200 mg p.o. twice daily Flutter valve 4 times daily, IS Q1HWA Continue home tiotropium Continue home budesonide/formoterol - duo nebs VILMA Q4H, PRN Q2H - consider pulm consult if no clinical improvement Code status: full DVT ppx: Lovenox 40 QAM FENGI: regular Dispo: MedSurg (2) Crohn's disease in remission: Plan: Noted. Continue mesalamine (3) Hypertension: Plan: Blood pressure mildly elevated 156/76 Patient currently not on any home blood pressure medications Continue to monitor (4) Hypothyroid: Plan: Chronic. Stable. Continue Synthroid 112 mcg p.o. daily Admission and Anticipated Discharge Date Admission Date: November 18, 2023 Supervising Physician Co-Signing Physician Notes I personally examined the patient and verified alfredo points of history and exam, discussed case, and agree with decision making and plan documented by Dr. Barger. 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 Repeat chest x-ray confirms emphysema with mild pulmonary vascular congestion. Patient weaning down on supplemental oxygen. Leukocytosis likely reactive in setting of steroids. Some improvement of symptoms, cough feels more productive, lungs with less wheezing and continued coarse breath sounds today, anticipate further improvement tomorrow, if not will consult pulmonary medicine. Patient rescheduled outpatient Fasenra injection due to hospitalization. Subjective Patient seen at bedside this AM. Reports continued SOB especially with ambulation. No CP, fevers, or chills. Continued cough and dyspnea. Reports feeling slightly worse today. Review of Systems 2 Review of Systems: See HPI Physical Exam 2 Physical Exam: General: patient resting comfortably, NAD, non-toxic in appearance Skin: warm, dry, intact, no rashes or lesions HEENT: NC/AT, EOMI, anicteric sclera, conjunctiva without injection, external ear normal to inspection, nares patent, moist mucus membranes Heart: +S1/S2, regular, no m/r/g Lungs: equal air entry bilaterally, coarse rhonchi appreciated in bilateral lungs, diffuse wheezing, cough Abd: non-distended Ext: warm, no clubbing/cyanosis or edema Neuro: nonfocal, patient AA&O x 4, speech intact, no facial droop, moving all extremities on command with equal strength 5/5 Results & Data Results & Data Vital Signs (Past 12 Hours) Vital Signs Temp Pulse Resp BP Pulse Ox O2 Del Method O2 Flow Rate 11/20/23 00:46 73 20 94 Nasal Cannula 2 11/19/23 20:09 36.3 C L 73 16 143/61 H 95 Nasal Cannula 2 11/19/23 19:45 71 19 94 Nasal Cannula 2 11/19/23 19:40 Nasal Cannula 2 Laboratory Results 11/20/23 07:13 11/20/23 07:13 Resident Activity Tracking Resident Involvement: Resident Care Provided Care Provided: Adult Hospital Medicine
[2023-11-20 07:56] LABS: Basophils # (auto) 0.03 K/uL (0.00-0.20); Basophils % (auto) 0.2 %; Hematocrit (blood only) 37.6 % (42.0-52.0); Hemoglobin 12.1 g/dl (14.0-18.0); Immature Granulocytes # (auto) 0.06 K/uL (0.01-0.20); Immature Granulocytes % (auto) 0.4 %; Lymphocytes # (auto) 1.26 K/uL (1.20-3.40); Lymphocytes % (auto) 7.9 %; Mean Corpuscular Hemoglobin 27.6 pg (25.0-34.0); Mean Corpuscular Hgb Conc 32.2 g/dL (32.0-36.0); Mean Corpuscular Volume 85.6 fL (80.0-100.0); Mean Platelet Volume 10.3 fL (9.4-12.4); Monocytes # (auto) 1.09 K/uL (0.11-0.59); Monocytes % (auto) 6.9 %; Neutrophils # (auto) 13.45 K/uL (1.40-6.50); Neutrophils % (auto) 84.6 %; Platelet Count 316 K/uL (130-400); RDW Coefficient of Variation 15.9 % (11.5-14.5); RDW Standard Deviation 49.7 fL (36.4-46.3); Red Blood Count 4.39 M/uL (4.70-6.10); White Blood Count 15.89 K/ul (4.8-10.8)
[2023-11-20 08:20] LABS: Albumin Globulin Ratio 1.3 (0.9-2); Albumin Level 3.6 gm/dl (3.4-5.0); Bilirubin,Total 0.5 mg/dl (0.2-1.0); Calcium 8.6 mg/dl (8.6-10.3); Creatinine Clr Calc Pharmacy 95.2 ml/min; Est GFR (African American) 100.9 ml/min; Est GFR (Non-African American) 87.1 ml/min; Globulin 2.7 gm/dl (2.5-4.0); Potassium 4.1 mmol/L (3.5-5.1); Total Protein 6.3 gm/dl (6.0-8.3)
[2023-11-20] MEDS: MESALAMINE 0.375 GM PO SCH (08:38)
[2023-11-20] MEDS ORDERED: ALBUT/IPRATROP 3MG/0.5MG NEB 3 ML VIAL NEB PRN (10:59)
[2023-11-20 12:21] LABS: Magnesium 2.1 mg/dl (1.7-2.4)
[2023-11-20] MEDS: ENOXAPARIN INJ 40 MG/0.4 ML SYR SQ SCH (14:28)
[2023-11-20] MEDS: MAGNESIUM SULFATE / D5W 1 GM/100 ML BAG IV ONE (14:29)
--- NOTE | 2023-11-20 15:45 | XRay Report ---
XR chest 2V PA/lateral HISTORY: 72 years-old Male SOB/ Hypoxia acute shortness of breath with hypoxia COMPARISON: 11/18/2023 TECHNIQUE: PA and lateral views of the chest FINDINGS: Cardiomediastinal and hilar silhouettes are within normal limits. Pulmonary vascular congestion sugge sted. Emphysema with chronic interstitial coarsening. No pneumothorax, pleural effusion or lobar spac e consolidation. Mild subsegmental bibasilar atelectasis. IMPRESSION: Emphysema with mild pulmonary vascular congestion. ACT 112: Negative or not required by law. The above report was generated using voice recognition software. It may contain grammatical, syntax o r spelling errors. Electronically signed by: Donovan Isaac M.D. 11/20/2023 3:44 PM
[2023-11-21 07:51] LABS: Basophils # (auto) 0.03 K/uL (0.00-0.20); Basophils % (auto) 0.2 %; Hemoglobin 11.9 g/dl (14.0-18.0); Immature Granulocytes # (auto) 0.06 K/uL (0.01-0.20); Immature Granulocytes % (auto) 0.5 %; Lymphocytes # (auto) 1.38 K/uL (1.20-3.40); Lymphocytes % (auto) 10.6 %; Mean Corpuscular Hemoglobin 27.3 pg (25.0-34.0); Mean Corpuscular Hgb Conc 31.3 g/dL (32.0-36.0); Mean Corpuscular Volume 87.2 fL (80.0-100.0); Mean Platelet Volume 10.3 fL (9.4-12.4); Monocytes # (auto) 1.01 K/uL (0.11-0.59); Monocytes % (auto) 7.7 %; Neutrophils # (auto) 10.59 K/uL (1.40-6.50); Platelet Count 308 K/uL (130-400); RDW Coefficient of Variation 16.1 % (11.5-14.5); Red Blood Count 4.36 M/uL (4.70-6.10); White Blood Count 13.07 K/ul (4.8-10.8)
[2023-11-21 08:10] LABS: BUN Creatinine Ratio 24.4 (10-20); Calcium 8.5 mg/dl (8.6-10.3); Creatinine Clr Calc Pharmacy 89.9 ml/min; Est GFR (African American) 98.5 ml/min; Magnesium 2.2 mg/dl (1.7-2.4); Potassium 3.7 mmol/L (3.5-5.1)
--- NOTE | 2023-11-21 08:16 | Hospitalist Progress Note ---
Date of Service November 21, 2023 Assessment & Plan (1) Acute hypoxemic respiratory failure: Plan: Patient reports 3 days of progressive dyspnea as well as productive cough. Acute hypoxic respiratory failure in the ER requiring placement of supplemental oxygen by nasal cannula. Patient is feeling improved. CTA of the chest as above with mild bilateral lower lobe atelectasis with underlying emphysema. Respiratory bio fire panel was negative. Question acute exacerbation of COPD/asthma as underlying cause of patient's symptoms. Pulmonary consulted as patient with minimal clinical improvement - appreciate recs. Check sputum culture, BCx NGTD x 48H Continue supplemental oxygen as needed to maintain adequate oxygenation, humidify oxygen Doxycycline 100 mg p.o. twice daily Solu-Medrol 40 mg IV daily Pulmonary toilet - duo nebs schedule and PRN, flutter valve, IS Q1H WA, mucinex, mucomyst, hypertonic nebulized saline Mag x1 given 11/20 Continue home tiotropium and budesonide/formoterol Pulmonary rehab after d/c Consider MWF dosing Azithromycin Code status: full DVT ppx: Lovenox 40 QAM FENGI: regular Dispo: MedSurg (2) SOB (shortness of breath): (3) Crohn's disease in remission: Plan: Noted. Continue mesalamine (4) Hypertension: Plan: Elevated BP without diagnosis of HTN. BP acceptable. Continue to monitor. Decide on BP medication need on outpatient basis. (5) Hypothyroid: Plan: Chronic. Stable. Continue Synthroid 112 mcg p.o. daily Admission and Anticipated Discharge Date Admission Date: November 18, 2023 Supervising Physician Co-Signing Physician Notes I personally examined the patient and verified alfredo points of history and exam, discussed case, and agree with decision making and plan documented by Dr. Barger. Patient with minimal clinical improvement, supplemental oxygen requirement has reduced, pulmonary medicine has been consulted, appreciate recommendations. Subjective Patient with little to no improvement over the last two days. Continued cough. Continued shortness of breath. Did trial RA and desaturated to the mid 80s. Patient received 1 g Mg 11/20. Review of Systems 2 Review of Systems: See HPI Physical Exam 2 Physical Exam: General: patient resting comfortably, NAD, non-toxic in appearance Skin: warm, dry, intact, no rashes or lesions HEENT: NC/AT, EOMI, anicteric sclera, conjunctiva without injection, external ear normal to inspection, nares patent, moist mucus membranes Heart: +S1/S2, regular, no m/r/g Lungs: equal air entry bilaterally, coarse rhonchi appreciated in bilateral lungs, diffuse wheezing, cough Abd: non-distended Ext: warm, no clubbing/cyanosis or edema Neuro: nonfocal, alert and oriented speech intact, no facial droop, moving all extremities Results & Data Results & Data Vital Signs (Past 12 Hours) Vital Signs Temp Pulse Resp BP Pulse Ox O2 Del Method O2 Flow Rate 11/21/23 07:31 36.3 C L 73 16 136/74 94 Nasal Cannula 2 11/21/23 06:05 70 22 92 Nasal Cannula 2 11/20/23 23:11 76 22 92 Nasal Cannula 2 11/20/23 21:02 36.4 C L 75 20 137/62 94 Nasal Cannula 2 11/20/23 20:40 Nasal Cannula 2 Laboratory Results 11/21/23 07:21 11/21/23 07:21 Resident Activity Tracking Resident Involvement: Resident Care Provided Care Provided: Adult Hospital Medicine
--- NOTE | 2023-11-21 08:34 | Pulmonary Consultation ---
Date of Consultation November 21, 2023 Assessment & Plan (1) Acute hypoxemic respiratory failure: (2) COPD (chronic obstructive pulmonary disease): (3) Abnormal chest CT: Plan PFT 04/10/2023: Moderate obstructive lung dysfunction FVC 3.79 L 79%, FEV1 2.40 L 68%, FEV1/FVC 63%, DLCO 61% CT chest 11/18/2023 personally reviewed: Centrilobular and paraseptal emphysema appreciated bilaterally especially in the upper lobes Minimal tree-in-bud opacities appreciated in the right lower lobe Dependent atelectasis bilateral lower lobes No significant mediastinal lymphadenopathy 2D echo 12/19/2022: EF 60%, normal diastolic function, PASP 23 mmHg -- Acute hypoxic respiratory failure Secondary to COPD exacerbation QTc 453 on 11/18/2023 BNP 42 Respiratory bio fire negative for everything 11/18/2023 --COPD with chronic bronchitis >40 pack-year smoking history, quit at the age of 52 On Symbicort and Spiriva at home Following up with Dr. Pinto Patient is also getting Fasenra from an allergy History of eosinophil count as high as 730 on 04/17/2019 Patient did have bronchoscopy back in 2019, it grew penicillium and Mary albicans which is most likely a contaminant, AFB culture and smear have been negative multiple times in the past -- History of lung cancer in sisters as well as mother who are smokers He is personally BRCA positive --Crohn's disease On mesalamine Plan: Add Mucomyst and hypertonic saline nebulized regimen. Follow-up sputum culture QTc is 453, addition of azithromycin [id number] prior to discharge will be thought of. Continue with steroids and nebulizer Try to take the patient off of oxygen He will need for from pulmonary rehab on discharge Please note the above document was generated using voice recognition software. It may contain grammatical, syntax or spelling errors.Any formal questions or concerns about the content, text or information contained within the body of this dictation should be directly addressed to the provider for clarification. History of Present Illness Attending Physician: Sofia Caballero DO History of Present Illness 72-year-old male present to the hospital with complaints of shortness of breath Past medical history: COPD, Crohn's disease on mesalamine, hypertension, hypothyroidism Pulmonary consulted for delayed in improvement At the time of examination patient says that he was having issues with his breathing approximately a week prior to presenting to the hospital It is mostly on exertion. Did have some wheezing at that time. He is complaining of having phlegm but inability to bring it up. No nausea or vomiting No dysuria, no diarrhea. No recent upper respite tract infection or allergy-like symptoms. When he does bring up phlegm is mostly clear. Denies any hemoptysis. Social history:> 50-daen-errz smoking history, quit at the age of 52 Allergies Allergy/AdvReac Type Severity Reaction Status Date / Time No Known Allergies Allergy Verified 08/22/23 12:42 Home Medications Medication Instructions Recorded Confirmed Type ascorbic acid (vitamin C) 500 mg 500 mg PO QAM 09/01/18 08/22/23 History tablet (Vitamin C) cholecalciferol (vitamin D3) 25 1,000 unit PO QAM 09/01/18 08/22/23 History mcg (1,000 unit) chewable tablet (Vitamin D3) colestipol 1 gram tablet 1 g PO BID 09/01/18 08/22/23 History levothyroxine 112 mcg tablet 112 mcg PO QAM 09/01/18 08/22/23 History loperamide 2 mg capsule (Imodium 2 mg PO QAM 09/01/18 08/22/23 History A-D) multivitamin 1 tab PO QAM 09/01/18 08/22/23 History clotrimazole-betamethasone 1 1 appln topical BID PRN Rash 04/30/19 08/22/23 History %-0.05 % topical cream mesalamine 0.375 gram 1.5 g PO QAM 04/30/19 08/22/23 History capsule,extended release 24 hr hydroxyzine HCl 25 mg tablet 25 mg PO DAILY PRN ANXIETY/SLEEP 09/16/21 08/22/23 History potassium chloride 10 mEq 10 meq PO QAM 09/10/22 08/22/23 History capsule,extended release ferrous sulfate 325 mg (65 mg 325 mg PO QAM 02/03/23 08/22/23 History iron) tablet omeprazole 20 mg capsule,delayed 20 mg PO QAM 02/03/23 08/22/23 History release rosuvastatin 10 mg tablet (Crestor) 10 mg PO HS 02/03/23 08/22/23 History vedolizumab 300 mg intravenous See Rx Instructions IV .COMPLEX 04/05/23 08/22/23 History solution (Entyvio) budesonide-formoterol HFA 160 2 inh inhalation BID 08/15/23 08/22/23 History mcg-4.5 mcg/actuation aerosol inhaler (Symbicort) finasteride 5 mg tablet 5 mg PO QAM 08/15/23 08/22/23 History trazodone 150 mg tablet 150 mg PO HS 08/15/23 08/22/23 History benralizumab 30 mg/mL subcutaneous See Rx Instructions .Route 08/22/23 Rx syringe (Fasenra) .COMPLEX #1 ea tamsulosin 0.4 mg capsule (Flomax) 0.8 mg (2 x 0.4 mg) PO HS BPH #180 08/22/23 Rx caps tiotropium bromide 2.5 2 inh inhalation QAM #12 grams 10/17/23 Rx mcg/actuation mist for inhalation (Spiriva Respimat) albuterol sulfate 90 mcg/actuation 1 puff inhalation Q6H PRN 11/09/23 Rx aerosol inhaler (ProAir HFA) Shortness Of Breath #8.5 grams Patient History Medical History History of esophageal dilatation (~2002) Small bowel obstruction 08/2022 - treated at [facility] with NG Tube - no surgery. Severe persistent asthma History of melanoma Eosinophilia ADELAIDA (obstructive sleep apnea) pt denies Crohns disease COPD (chronic obstructive pulmonary disease) inhaler/nebulizer prn Hypertension Hypothyroid Crohn's disease in remission currently having a flare- following with Dr Schmitz Diastolic heart failure Pneumonia hx ~2017, where his breathing from there had worsened and follows with [facility] [place] Pulmonary currently. Surgical History History of esophagogastroduodenoscopy (EGD) (~2002) Hx of vasectomy History of melanoma excision above right eye History of tooth extraction all lower teeth/partial upper History of tonsillectomy History of bilateral cataract extraction History of cardiac catheterization 03/2017 @ [facility] with Dr. Teague--NO stents History of bronchoscopy multiple History of colonoscopy with polypectomy Family History Other Hypertension No family history of adverse response to anesthesia No significant family history Denies family history of Myocardial infarction Stroke Social History Smoking Status: Never smoker Age Started Using Tobacco: 17; Age Quit Using Tobacco: 50; Second Hand Exposure: Yes (parents smoked); Do You Dip or Chew Tobacco: No; Hx Alcohol Use: Yes Alcohol type: hard liquor Alcohol Intake Frequency Comment: 1x per month, 1-3 drinks per sitting Hx Substance Use: No Preferred Language: Turkmen Communication Ability: Effective Visual Impairment: No Limitations Hearing Ability: Normal Receiving And Processing Supervisor Required: No Beliefs That Will Affect Care: None Current Living Situation: Spouse Current Living Situation Comment: Lives with and stepson Feels Safe at Home: Yes Assistive Devices: None Review of Systems 2 Review of Systems: All systems reviewed & are unremarkable except as noted in HPI & below Physical Exam 2 Physical Exam: Constitutional: No acute distress HEENT: EOMI, PERRLA Respiratory system: Decreased air entry bilaterally, no wheeze, no rhonchi, mild crackles bilateral lower lobes CVS: S1-S2 positive, no murmurs or gallops Abdomen: Soft, nontender, nondistended, positive bowel sounds x4 Extremities: +2 pulses bilaterally radialis/ dorsalis pedis, no cyanosis, no edema Neuro: Awake alert oriented x3 Psych: Normal mood and affect G/U: No Arevalo Skin: no rashes, warm and dry Lymphatic: no cervical or axillary lymphadenopathy Results & Data Results & Data Vital Signs (Past 12 Hours) Vital Signs Temp Pulse Resp BP Pulse Ox O2 Del Method O2 Flow Rate 11/21/23 07:31 36.3 C L 73 16 136/74 94 Nasal Cannula 2 11/21/23 06:05 70 22 92 Nasal Cannula 2 11/20/23 23:11 76 22 92 Nasal Cannula 2 11/20/23 21:02 36.4 C L 75 20 137/62 94 Nasal Cannula 2 11/20/23 20:40 Nasal Cannula 2 Laboratory Results 11/21/23 07:21 11/21/23 07:21 PG Care Time/CCT Total # of Minutes Spent Total Time Spent with Patient: Total time spent is greater than 50% in coordination of care (as documented) at patient's floor/unit and/or counseling patient: Coding Level of Care Code 32914 INT INP/OBS CARE MIN Diagnoses Acute hypoxemic respiratory failure J96.01 COPD (chronic obstructive pulmonary disease) J44.[address] R93.89
[2023-11-21] MEDS: ALBUT/IPRATROP 3MG/0.5MG NEB 3 ML VIAL NEB SCH (14:59)
[2023-11-21] MEDS: ACETYLCYSTEINE 20% INHAL SOLN 4ML ***DISPENSED BY RESP. INH SCH (14:59)
[2023-11-21] MEDS: SODIUM CHLOR 7% 4 ML NEB NEB SCH (20:57)
[2023-11-22] MEDS: ACETYLCYSTEINE 20% INHAL SOLN 4ML ***DISPENSED BY RESP. INH SCH (00:35)
[2023-11-22 07:44] LABS: Basophils # (auto) 0.02 K/uL (0.00-0.20); Basophils % (auto) 0.2 %; Hematocrit (blood only) 39.3 % (42.0-52.0); Hemoglobin 12.5 g/dl (14.0-18.0); Immature Granulocytes # (auto) 0.09 K/uL (0.01-0.20); Immature Granulocytes % (auto) 0.7 %; Lymphocytes # (auto) 1.37 K/uL (1.20-3.40); Lymphocytes % (auto) 11.1 %; Mean Corpuscular Hemoglobin 27.5 pg (25.0-34.0); Mean Corpuscular Hgb Conc 31.8 g/dL (32.0-36.0); Mean Corpuscular Volume 86.4 fL (80.0-100.0); Mean Platelet Volume 10.4 fL (9.4-12.4); Monocytes # (auto) 0.95 K/uL (0.11-0.59); Monocytes % (auto) 7.7 %; Neutrophils % (auto) 80.3 %; Platelet Count 312 K/uL (130-400); RDW Coefficient of Variation 15.9 % (11.5-14.5); Red Blood Count 4.55 M/uL (4.70-6.10); White Blood Count 12.33 K/ul (4.8-10.8)
[2023-11-22 08:06] LABS: BUN Creatinine Ratio 27.8 (10-20); Calcium 8.7 mg/dl (8.6-10.3); Creatinine Clr Calc Pharmacy 102.4 ml/min; Est GFR (Non-African American) 89.7 ml/min; Magnesium 2.1 mg/dl (1.7-2.4); Potassium 3.9 mmol/L (3.5-5.1)
--- NOTE | 2023-11-22 10:12 | Pulmonology Progress Note ---
Date of Service November 22, 2023 Assessment & Plan (1) Acute hypoxemic respiratory failure: (2) COPD (chronic obstructive pulmonary disease): (3) Abnormal chest CT: Plan PFT 04/10/2023: Moderate obstructive lung dysfunction FVC 3.79 L 79%, FEV1 2.40 L 68%, FEV1/FVC 63%, DLCO 61% CT chest 11/18/2023 personally reviewed: Centrilobular and paraseptal emphysema appreciated bilaterally especially in the upper lobes Minimal tree-in-bud opacities appreciated in the right lower lobe Dependent atelectasis bilateral lower lobes No significant mediastinal lymphadenopathy 2D echo 12/19/2022: EF 60%, normal diastolic function, PASP 23 mmHg -- Acute hypoxic respiratory failure Secondary to COPD exacerbation QTc 453 on 11/18/2023 BNP 42 Respiratory bio fire negative for everything 11/18/2023 --COPD with chronic bronchitis >40 pack-year smoking history, quit at the age of 52 On Symbicort and Spiriva at home Following up with Dr. Pinto Patient is also getting Fasenra from an allergy History of eosinophil count as high as 730 on 04/17/2019 Patient did have bronchoscopy back in 2019, it grew penicillium and Mary albicans which is most likely a contaminant, AFB culture and smear have been negative multiple times in the past -- History of lung cancer in sisters as well as mother who are smokers He is personally BRCA positive --Crohn's disease On mesalamine Plan: C/w Mucomyst and hypertonic saline nebulized regimen. Follow-up sputum culture QTc is 453, addition of azithromycin [id number] prior to discharge will be thought of. Continue with steroids and nebulizer Try to take the patient off of oxygen He will need for from pulmonary rehab on discharge Please note the above document was generated using voice recognition software. It may contain grammatical, syntax or spelling errors.Any formal questions or concerns about the content, text or information contained within the body of this dictation should be directly addressed to the provider for clarification. Admission and Anticipated Discharge Date Admission Date: November 18, 2023 Review of Systems 2 Review of Systems: All systems reviewed & are unremarkable except as noted in Subjective Physical Exam 2 Physical Exam: Constitutional: No acute distress HEENT: EOMI, PERRLA Respiratory system: Decreased air entry bilaterally, no wheeze, no rhonchi, mild crackles bilateral lower lobes CVS: S1-S2 positive, no murmurs or gallops Abdomen: Soft, nontender, nondistended, positive bowel sounds x4 Extremities: +2 pulses bilaterally radialis/ dorsalis pedis, no cyanosis, no edema Neuro: Awake alert oriented x3 Psych: Normal mood and affect G/U: No Arevalo Skin: no rashes, warm and dry Lymphatic: no cervical or axillary lymphadenopathy Results & Data Results & Data Vital Signs (Past 12 Hours) Vital Signs Temp Pulse Pulse Pulse Resp Resp Resp 11/22/23 08:49 82 85 16 16 11/22/23 08:20 74 11/22/23 07:29 63 18 11/22/23 07:16 36.5 C 62 16 11/22/23 00:35 72 19 11/21/23 22:31 BP Pulse Ox Pulse Ox Pulse Ox O2 Del Method O2 Flow Rate 11/22/23 08:49 90 92 11/22/23 08:20 92 Room Air 11/22/23 07:29 94 Nasal Cannula 2 11/22/23 07:16 133/71 95 Nasal Cannula 2 11/22/23 00:35 94 Nasal Cannula 2 11/21/23 22:31 Room Air Laboratory Results 11/22/23 07:24 11/22/23 07:24 PG Care Time/CCT Total # of Minutes Spent Total Time Spent with Patient: Total time spent is greater than 50% in coordination of care (as documented) at patient's floor/unit and/or counseling patient: Coding Level of Care Code 54109 SUB INP/OBS CARE 3/50MIN Diagnoses Acute hypoxemic respiratory failure J96.01 COPD (chronic obstructive pulmonary disease) J44.[address] R93.89
--- NOTE | 2023-11-22 11:06 | Discharge Summary ---
Date of Service November 22, 2023 Admission HPI Per Admitting Provider Call Mely is a 72-year-old male with history of severe persistent asthma and COPD overlap syndrome, prior bronchiectasis per patient presenting with 3 days of persistent shortness of breath and cough productive for clear, thick mucus (nonpurulent, nonbloody). He reports significant dyspnea with minimal exertion in his homebecomes short of breath after walking approximately 10 feet. He has been coughing significantly causing him chest pain. He denies fevers or chills. He denies edema, orthopnea or weight gain. He has had 2 episodes of diarrhea but otherwise denies abdominal pain, nausea, vomiting. No use of oxygen at home. In the ER he is afebrile, hemodynamically stable. Hypoxic in the ER at 89% on room air. He was placed on supplemental oxygen by nasal cannula and is now saturating at 94 to 95%. Patient does not use oxygen at home nor does he use CPAP. ER course: Albuterol 3 mL neb Solu-Medrol 124 mg IV Admission Exam Per Admitting Provider General: patient resting comfortably, NAD, non-toxic in appearance, AA&O x 4 Skin: warm, dry, intact, no rashes or lesions HEENT: NC/AT, PERRL, EOMI, anicteric sclera, conjunctiva without injection, external ear normal to inspection and nontender, nares patent, moist mucus membranes, dentition intact, no oropharyngeal lesions, neck supple, trachea midline, no LAD, no thyromegaly, no JVD Heart: +S1/S2, regular, no m/r/g Lungs: equal air entry bilaterally, coarse rhonchi appreciated in bilateral lungs, faint scattered end expiratory wheezing, cough Abd: +BS, soft, NT/ND, no masses/organomegaly/ascites Ext: warm, 2+ pulses in UE/LE bilaterally, no clubbing/cyanosis or edema Neuro: nonfocal, patient AA&O x 4, speech intact, no facial droop, moving all extremities on command with equal strength 5/5 Principal Diagnosis acute hypoxic respiratory failure Discharge Exam General: patient resting comfortably, NAD, non-toxic in appearance Skin: warm, dry, intact, no rashes or lesions HEENT: NC/AT, EOMI, anicteric sclera, conjunctiva without injection, external ear normal to inspection, nares patent, moist mucus membranes Heart: +S1/S2, regular, no m/r/g Lungs: equal air entry bilaterally, significantly improved wheezing Abd: non-distended Ext: warm, no clubbing/cyanosis or edema Neuro: nonfocal, alert and oriented speech intact, no facial droop, moving all extremities Discharge Data Allergies Allergy/AdvReac Type Severity Reaction Status Date / Time No Known Allergies Allergy Verified 08/22/23 12:42 Consultations 11/18/23 22:36 ED Decision to Admit Stat 11/21/23 07:37 Consult Pulmonology Routine Ordered Studies Chest X-Ray 11/18/23 18:27 FINDINGS: Lung volumes are normal. Lungs are clear. There is no pneumothorax or pleural effusion. Cardiac size is normal. Mediastinal contours are normal. There is no evidence for pulmonary edema. IMPRESSION: No acute cardiopulmonary findings. Chest CTA 11/18/23 19:43 FINDINGS: Pulmonary arteries: Unremarkable. Normal enhancement of the pulmonary arteries with no filling defect to suggest pulmonary embolus. Aorta: Mild atherosclerotic disease of aorta with no aneurysm or dissection. Lungs: Mild emphysematous changes within the lung apices. Mild bilateral lower lobe atelectasis. No mass. Pleural space: Mild biapical pleural thickening with subpleural scarring. No significant effusion. No pneumothorax. Heart: Unremarkable. No cardiomegaly. No significant pericardial effusion. No evidence of RV dysfunction. Normal cardiac size. Bones/joints: Multilevel degenerative disease of the spine with possible osteopenia. No acute fracture. No dislocation. Soft tissues: Unremarkable. Lymph nodes: Unremarkable. No enlarged lymph nodes. Other findings: Abdominal structures are unremarkable. IMPRESSION: 1. No pulmonary embolus or aortic dissection. 2. Mild bilateral lower lobe atelectasis with underlying emphysematous changes as described. Chest X-Ray 11/20/23 00:00 FINDINGS: Cardiomediastinal and hilar silhouettes are within normal limits. Pulmonary vascular congestion suggested. Emphysema with chronic interstitial coarsening. No pneumothorax, pleural effusion or lobar space consolidation. Mild subsegmental bibasilar atelectasis. IMPRESSION: Emphysema with mild pulmonary vascular congestion. Hospital Course (1) Acute hypoxemic respiratory failure: Patient reports 3 days of progressive dyspnea as well as productive cough. Acute hypoxic respiratory failure in the ER requiring placement of supplemental oxygen by nasal cannula. Patient is feeling improved. CTA of the chest as above with mild bilateral lower lobe atelectasis with underlying emphysema. Respiratory bio fire panel was negative. Likely asthma/COPD exacerbation. Pulmonary consulted as patient with minimal clinical improvement. Patient has turned the corner at this point. No longer requiring oxygen even with ambulation. BCx NGTD x 48H. Will send with prednisone taper 40 mg x 3 days, 30 mg x 3 days, 20 mg x 3 days, 10 mg x 3 days. Patient on max outpatient regimen for COPD/asthma. Will add Azithromycin MWF to hopefully avoid repeated hospitalization for exacerbations. Continue home meds. CM consulted to help arrange pulmonary rehab outpatient. Follow up with Dr. Pinto outpatient. (2) SOB (shortness of breath): (3) Crohn's disease in remission: Noted. Continue mesalamine (4) Hypertension: Elevated BP without diagnosis of HTN. BP acceptable. Continue to monitor. Decide on BP medication need on outpatient basis. (5) Hypothyroid: Chronic. Stable. Continue Synthroid 112 mcg p.o. daily Total Time Total Time Spent Total Time Spent (In Minutes): See attending attestation Discharge Plan Discharge Items Patient Disposition: Home - Self-Care Reason For Visit: SOB Discharge Diagnosis: acute hypoxic respiratory failure Activity: Per Instructions section Non-emergency contact: Primary Care Provider and Hand Coper Call non-emergency contact if: you have any medication questions and your temperature is above 101 Follow-up/Referrals: Vladislav Pinto MD [Physician] - 11/23/23 9:30 am (APPOINTMENT WITH MILENA PIERSON PA-C) Jocelyne Cook [Primary Care Provider] - 11/23/23 2:45 pm Diet: Heart Healthy Addtl Attending Provider Instructions: You were admitted to the hospital for acute hypoxic respiratory failure likely because of an asthma/COPD exacerbation. You were treated with nebulizer treatments, steroids, and antibiotics. You improved clinically and are no longer requiring oxygen. We will discharge you with a prednisone taper - 40 mg x 3 days, 30 mg x 3 days, 20 mg x 3 days, 10 mg x 3 days. We will also start you on a medication called Azithromycin. You will take this medication three times a week - Mondays, Wednesdays, and Fridays. This is an antibiotic that has been show to decrease exacerbations in difficult to treat COPD. Follow up with Dr. Pinto outpatient for further management of your reactive airway disease - asthma/COPD. A discharge summary will be sent to your primary care physician to ensure continuity of care. Please bring this discharge summary with you to your next office appointment so that your provider can review it at that time. Follow-up appointments: We have requested a follow-up appointment with your primary care physician within one week of discharge.Please call their office if you do not hear from them. Keep all your follow-up appointments as already scheduled. If you cannot make an appointment, notify your provider. Medications: Your medication list has been reviewed and reconciled upon discharge to ensure accuracy and continuity of care. An updated list of all your medications is included with your hospital discharge paperwork. Please review this list closely, and make note of any changes. Take your medications as instructed; do not skip a dose of your medicines. Make sure all of your doctors know every medicine you are taking (including dtlo-euu-cxaxqrs medicines, vitamins, and supplements). Call your primary care provider before taking any new medicines (including over- the-counter medicines, vitamins, and supplements), because some of these may interact with your current medications, or may make your symptoms worse. Tell your primary care provider if you cannot afford your medications. CONTACT YOUR PRIMARY CARE PROVIDER if you experience any of the following: [_] [_] Difficulty following your treatment plan, or difficulty taking medications CALL 911 OR GO TO THE EMERGENCY DEPARTMENT if you experience any of the following: Sudden, severe abdominal pain or nausea/vomiting Severe chest pain, or chest pain that radiates (moves) to your jaw or arm Sudden, severe shortness of breath or difficulty breathing Thank you for allowing us to participate in your care Pending Studies at Discharge: No Stand-Alone Forms: [facility], Smoking Cessation Medications and DC Order Prescriptions: New prednisone 10 mg tablet 10 mg PO DIRECTED Qty: 30 0RF Rx Instructions: see taper instructions - take 40 mg (4 tabs) x 3 days, 30 mg (3 tabs) x 3 days, 20 mg (2 tabs) x 3 days, 10 mg (1 tab) x 3 days azithromycin 500 mg tablet 500 mg PO .mwf 30 Days Qty: 18 0RF Rx Instructions: take one tab 3 times a week (Sunday, Sunday, Sunday) Continued Fasenra 30 mg/mL syringe See Rx Instructions .ROUTE .COMPLEX Qty: 1 11RF Dose Instruction: INJECT 30 MG (ONE SYRINGE) SUBCUTANEOUSLY (UNDER THE SKIN) EVERY 8 WEEKS Rx Instructions: INJECT 30 MG (ONE SYRINGE) SUBCUTANEOUSLY (UNDER THE SKIN) EVERY 8 WEEKS APPROVED through pharmacy benefit GOOD 05/31/23 - 07/30/24 APPROVED through medical benefit GOOD 08/20/23 - 08/18/24 tamsulosin [Flomax] 0.4 mg capsule 0.8 mg PO HS Qty: 180 1RF Spiriva Respimat 2.5 mcg/actuation mist 2 inh inhalation QAM Qty: 12 1RF albuterol sulfate [ProAir HFA] 90 mcg/actuation HFA aerosol inhaler 1 puff INHALATION Q6H PRN (Reason: Shortness Of Breath) Qty: 8.5 3RF Entyvio 300 mg recon soln See Rx Instructions IV .COMPLEX Rx Instructions: IV every 4 weeks; hydroxyzine HCl 25 mg tablet 25 mg PO DAILY PRN (Reason: ANXIETY/SLEEP) mesalamine 0.375 gram capsule,extended release 24hr 1.5 g PO QAM Rx Instructions: TAKES 4 TABS. clotrimazole-betamethasone 1-0.05 % cream 1 appln topical BID PRN (Reason: Rash) Fasenra Pen 30 mg/mL auto-injector 30 mg subcut ONCE Qty: 1 0RF multivitamin Tablet 1 tab PO QAM loperamide [Imodium A-D] 2 mg Capsule 2 mg PO QAM ascorbic acid (vitamin C) [Vitamin C] 500 mg Tablet 500 mg PO QAM colestipol 1 gram tablet 1 g PO BID levothyroxine 112 mcg tablet 112 mcg PO QAM cholecalciferol (vitamin D3) [Vitamin D3] 1,000 unit Tablet,Chewable 1,000 unit PO QAM potassium chloride 10 mEq capsule, extended release 10 meq PO QAM omeprazole 20 mg capsule,delayed release(DR/EC) 20 mg PO QAM rosuvastatin [Crestor] 10 mg tablet 10 mg PO HS ferrous sulfate 325 mg (65 mg iron) Tablet 325 mg PO QAM trazodone 150 mg Tablet 150 mg PO HS finasteride 5 mg tablet 5 mg PO QAM budesonide-formoterol [Symbicort] 160-4.5 mcg/actuation HFA aerosol inhaler 2 inh inhalation BID Discharge Orders: Discharge Order (Routine); Ordered 11/22/23 Ordered By: Vandana Mathew/Other Patient Handouts: Asthma and COPD, Chronic Lung Disease Nutrition Admission Data Admit Date/Time: 11/18/23 22:50 Attending Provider: Sofia Caballero Admit Provider: Carla Hickman Primary Care Provider: Jocelyne Cook Other Providers: Carla Hickman; Tanner Torres Other Interventions: Discharge Summary Assessment (RN) Last Done: 11/22/23 14:23 Supervising Physician Co-Signing Physician Notes I personally examined the patient and verified alfredo points of history and exam, discussed case, and agree with decision making and plan documented by Dr. Barger. Patient with clinical improvement overnight, lungs with diffuse faint expiratory wheeze on exam with marked improvement of air movement, on room air with appropriate oxygen saturations. Patient reports great improvement of symptoms. Advised he contact wave solder offbearer to see if benralizumab injection can be administered sooner (patient missed dose when hospitalized and now scheduled 2 weeks out). Advised completion of prednisone taper and azithromycin as prescribed. Recommended scheduling follow-up with PCP in next week. Resident Activity Tracking Resident Involvement: Resident Care Provided Care Provided: Adult Hospital Medicine
== END 2023-11-22 14:50 | disposition home or self-care (01) | DRG 190 ==
LOC: ED 18:09 → SUATTDRO 22:50 → 3N 22:50

== ENCOUNTER 2024-03-05 10:11 | Observation (INO) ==
--- NOTE | 2024-03-05 10:30 | Emergency Department Note ---
Impression & Plan Right-sided chest pain, Acute cholecystitis, Pleuritic chest pain, RUQ abdominal pain ED Provider Note NAME: CHARLES TORRES AGE: 73 SEX: M : 1950 ARRIVES VIA: Walk-In INFORMANT: [Patient] ED PROVIDER(S): [Moy Talbot MD] CHIEF COMPLAINT: Rib, chest pain HISTORY OF PRESENT ILLNESS: The patient is a 73-year-old male whose had 4 days of right lower chest/upper abdominal pain. The pain is worse to take a breath and movement makes him feel short of breath. The pain has been constant. There has been no fall or trauma, no cough, no fever. Patient has never had a DVT or PE. The patient was told 1 time that he had gallstones, he still has his gallbladder. He does have a history of Crohn's disease. PMHx/PSHx/Social Hx: See Below PHYSICAL EXAM: GENERAL: Patient is in no acute distress. His pain does seem to worsen with a deep breath. HEENT: No acute trauma, normocephalic atraumatic, mucous membranes moist, no nasal congestion. NECK: No stridor, no adenopathy, no meningismus, trachea is midline. LUNGS: Clear to auscultation bilaterally, no wheeze, no rhonchi, breath sounds equal. Increased respiratory rate. HEART: Without murmurs gallops or rubs, regular rate and rhythm. Chest: Tender along the right lower chest rib edge, no crepitus or contusion. ABDOMEN: Soft, moderately tender in the right upper quadrant, no distention. EXTREMITIES: No cyanosis, full range of motion of all the joints without pain or difficulty. NEUROLOGIC: Oriented x 3, no acute motor or sensory deficits, no focal weakness. SKIN: No jaundice, no diaphoresis. DIFFERENTIAL DIAGNOSIS: Pneumonia, musculoskeletal pain, PE, pneumothorax, biliary colic, cholecystitis, pancreatitis, among others. EMERGENCY DEPARTMENT PROCEDURES: MEDICAL DECISION MAKING: There is no leukocytosis or concerning anemia. There is a normal platelet count. No coagulopathy. No renal failure or significant electrolyte abnormality. No concerning liver enzyme elevation. No evidence for pancreatitis. ECG shows a sinus rhythm, no ischemia or dysrhythmia. Cardiac enzyme testing x 1 is not consistent with acute cardiac injury. Chest x-ray does not show free air or pneumonia. Chest CT does not show PE, a small area of atelectasis or pneumonia was noted in the right lower lung. Gallbladder ultrasound does show findings for early acute cholecystitis. On exam, the patient was tender in the right upper quadrant and right lower chest. He was not toxic or febrile. He was not hypoxic. Patient was given IV Zosyn as antibiotic coverage. He was given IV Toradol for pain, IV Tylenol for pain. I did speak with general surgery. They recommended antibiotics, a medical admission with a surgical consult. The patient was told the results of this testing. I did speak with case management, the on-call hospitalist consulted. In short, it does appear that the patient's pain is from acute cholecystitis, I doubt pneumonia or a primary lung issue. Prior/Outside records/notes reviewed: None ECG per my interpretation: Indication was chest pain. The ECG shows a normal sinus rhythm with a rate of 69. There is no ST elevation, no PVCs. The QTc is 439. Continuous Cardiac Monitoring per my interpretation: An order was placed for continuous cardiac monitoring. The monitor shows a rate of 72 with normal sinus rhythm. Imaging/x-ray results per my interpretation: Chest x-ray does not show mediastinal widening, pneumonia or pneumothorax. Chronic Medical/Social conditions affecting care: Advanced age. Care/Management discussed with: General surgery-Dr. Jesus. Case management and the on-call hospitalist. Level of care consideration(s): After review of the information above and other included data: --I believe the patient requires escalation of care to admission DISPOSITION: Admission with surgical consult Past Med/Surg History Problem List (Updated 03/05/24 @ 17:07 by Moy Talbot MD) RUQ abdominal pain (Acute) Pleuritic chest pain (Acute) Acute cholecystitis (Acute) Right-sided chest pain (Acute) Crohns disease Acute cholecystitis Edema of left lower extremity Acute hypoxemic respiratory failure Small bowel obstruction 08/2022 - treated at [facility] with NG Tube - no surgery. Screening PSA (prostate specific antigen) Bibasilar crackles BPH loc w urin obs/LUTS Nocturia Hypoxia (Acute) Acute respiratory distress Bronchiectasis (Acute) Sinus tachycardia seen on measurement specialist S/P bronchoscopy with bronchoalveolar lavage Injury of left foot (Acute) Influenza A Hyponatremia Fall from ladder (Acute) Dyspnea on exertion COPD (chronic obstructive pulmonary disease) (Acute) Eosinophilia (Chronic) ADELAIDA (obstructive sleep apnea) pt denies Crohn's disease in remission currently having a flare- following with Dr Schmitz Pneumonia hx ~2017, where his breathing from there had worsened and follows with [facility] Pulmonary currently. Severe persistent asthma History of cardiac catheterization (Acute) 03/2017 @ [facility] with Dr. Teague--NO stents Hypertension Hypothyroid Diastolic heart failure Medical History History of esophageal dilatation (~2002) History of melanoma COPD (chronic obstructive pulmonary disease) inhaler/nebulizer prn Surgical History History of esophagogastroduodenoscopy (EGD) (~2002) Hx of vasectomy History of melanoma excision above right eye History of tooth extraction all lower teeth/partial upper History of tonsillectomy History of bilateral cataract extraction History of bronchoscopy multiple History of colonoscopy with polypectomy Family History Other Hypertension No family history of adverse response to anesthesia No significant family history Denies family history of Myocardial infarction Stroke Social History Smoking Status: Never smoker Age Started Using Tobacco: 17; Age Quit Using Tobacco: 50; Second Hand Exposure: Yes (parents smoked); Do You Dip or Chew Tobacco: No; Hx Alcohol Use: Yes Alcohol type: hard liquor Alcohol Intake Frequency Comment: 1x per month, 1-3 drinks per sitting Hx Substance Use: No Preferred Language: Kiswahili Communication Ability: Effective Visual Impairment: No Limitations Hearing Ability: Normal .Net Architect Required: No Beliefs That Will Affect Care: None Current Living Situation: Spouse Current Living Situation Comment: Lives with and stepson Feels Safe at Home: Yes Assistive Devices: None Allergies Allergies Allergy/AdvReac Type Severity Reaction Status Date / Time No Known Allergies Allergy Verified 03/05/24 12:00 Home Meds Home Medications Medication Instructions Recorded Confirmed ascorbic acid (vitamin C) 500 mg 500 mg PO QAM 09/01/18 03/05/24 tablet (Vitamin C) cholecalciferol (vitamin D3) 25 1,000 unit PO QAM 09/01/18 03/05/24 mcg (1,000 unit) chewable tablet (Vitamin D3) colestipol 1 gram tablet 1 g PO BID 09/01/18 03/05/24 levothyroxine 112 mcg tablet 112 mcg PO QAM 09/01/18 03/05/24 loperamide 2 mg capsule (Imodium 2 mg PO QAM 09/01/18 03/05/24 A-D) multivitamin 1 tab PO QAM 09/01/18 03/05/24 clotrimazole-betamethasone 1 1 appln topical BID PRN Rash 04/30/19 03/05/24 %-0.05 % topical cream mesalamine 0.375 gram 1.5 g PO QAM 04/30/19 03/05/24 capsule,extended release 24 hr potassium chloride 10 mEq 10 meq PO QAM 09/10/22 03/05/24 capsule,extended release ferrous sulfate 325 mg (65 mg 325 mg PO QAM 02/03/23 03/05/24 iron) tablet omeprazole 20 mg capsule,delayed 20 mg PO QAM 02/03/23 03/05/24 release rosuvastatin 10 mg tablet (Crestor) 10 mg PO HS 02/03/23 03/05/24 budesonide-formoterol HFA 160 2 inh inhalation BID 08/15/23 03/05/24 mcg-4.5 mcg/actuation aerosol inhaler (Symbicort) finasteride 5 mg tablet 5 mg PO QAM 08/15/23 03/05/24 trazodone 150 mg tablet 150 mg PO HS 08/15/23 03/05/24 Skyrizi Inj 1 dose INJ DIRECTED 03/05/24 03/05/24 Previous Rx's Medication Instructions Recorded benralizumab 30 mg/mL subcutaneous See Rx Instructions .Route 08/22/23 syringe (Fasenra) .COMPLEX #1 ea tiotropium bromide 2.5 2 inh inhalation QAM #12 grams 10/17/23 mcg/actuation mist for inhalation (Spiriva Respimat) albuterol sulfate 90 mcg/actuation 1 puff inhalation Q6H PRN 11/09/23 aerosol inhaler (ProAir HFA) Shortness Of Breath #8.5 grams tamsulosin 0.4 mg capsule (Flomax) 0.8 mg (2 x 0.4 mg) PO HS BPH #180 02/20/24 caps Results & Data (ED) Vital Signs Vital Signs - 24 hr 03/05/24 10:17 03/05/24 10:28 03/05/24 10:32 Temperature 36.7 C Temperature Source Temporal Artery Scan Pulse Rate 72 65 Pulse Rate [Apical] 63 Pulse Rhythm [Apical] Pulse Strength [Apical] Respiratory Rate 18 18 Respiratory Effort / Characteristics Non-Labored Spontaneous Respiratory Depth Normal Respiratory Pattern Blood Pressure 153/63 H Blood Pressure [Left Arm] 161/78 H Blood Pressure Mean 93 Blood Pressure Mean [Left Arm] 105 Blood Pressure Position Sitting Blood Pressure Position [Left Arm] Pulse Oximetry 94 93 Oxygen Delivery Method Room Air Room Air Sepsis Recent Fever Within 48 Hours No Sepsis New/Unexplained Change in Mental Status No Sepsis Action Taken by Nursing No Action Required 03/05/24 10:32 03/05/24 12:11 03/05/24 14:00 Temperature Temperature Source Pulse Rate Pulse Rate [Apical] 58 L 59 L Pulse Rhythm [Apical] Regular Regular Pulse Strength [Apical] Normal Normal Respiratory Rate 16 18 Respiratory Effort / Characteristics Non-Labored Spontaneous Non-Labored Spontaneous Respiratory Depth Normal Normal Respiratory Pattern Regular Regular Blood Pressure Blood Pressure [Left Arm] 161/78 H 145/83 H Blood Pressure Mean Blood Pressure Mean [Left Arm] 105 103 Blood Pressure Position Blood Pressure Position [Left Arm] Sitting Sitting Pulse Oximetry 94 94 95 Oxygen Delivery Method Room Air Room Air Room Air Sepsis Recent Fever Within 48 Hours Sepsis New/Unexplained Change in Mental Status Sepsis Action Taken by [place]way Medications Current Medication List: was personally reviewed by me Laboratory Data Attestation: I reviewed the patient's lab results. 03/05/24 10:29 03/05/24 10:29 Lab Results 03/05/24 Range/Units 10:29 WBC 7.63 (4.8-10.8) K/ul RBC 4.84 (4.70-6.10) M/uL Hgb 14.0 (14.0-18.0) g/dl Hct 43.1 (42.0-52.0) % MCV 89.0 (80.0-100.0) fL MCH 28.9 (25.0-34.0) pg MCHC 32.5 (32.0-36.0) g/dL RDW Std Deviation 49.6 H (36.4-46.3) fL RDW Coeff of Ryan 15.2 H (11.5-14.5) % Plt Count 338 (130-400) K/uL MPV 10.4 (9.4-12.4) fL Immature Gran % (Auto) 0.3 % Neut % (Auto) 78.4 % Lymph % (Auto) 12.2 % [place] % (Auto) 9.0 % Eos % (Auto) 0.0 % Baso % (Auto) 0.1 % Neut # (Auto) 5.98 (1.40-6.50) K/uL Lymph # (Auto) 0.93 L (1.20-3.40) K/uL [place] # (Auto) 0.69 H (0.11-0.59) K/uL Eos # (Auto) 0.00 (0.00-0.50) K/uL Baso # (Auto) 0.01 (0.00-0.20) K/uL Immature Gran # (Auto) 0.02 (0.01-0.20) K/uL PT 11.3 (9.0-12.0) Seconds INR 1.0 (0.9-1.1) APTT 32 H (21-31) Seconds PTT Ratio 1.2 Sodium 138 (136-145) mmol/L Potassium 4.1 (3.5-5.1) mmol/L Chloride 104 (98-107) mmol/L Carbon Dioxide 27 (21-32) mmol/L Anion Gap 7 (3-11) BUN 11 (6-23) mg/dl Creatinine 0.96 (0.6-1.4) mg/dl Est Cr Clr Drug Dosing 83.7 ml/min Est GFR ( Amer) 90.5 ml/min Est GFR (Non-Af Amer) 78.1 ml/min BUN/Creatinine Ratio 11.5 (10-20) Glucose 150 H (70-99(Fasting)) mg/dl Calcium 9.1 (8.6-10.3) mg/dl Total Bilirubin 0.9 (0.2-1.0) mg/dl AST 22 (13-39) U/L ALT 24 (7-52) U/L Alkaline Phosphatase 76 (34-104) U/L Troponin I High Sens 9.3 (0-20) pg/ml Total Protein 6.9 (6.0-8.3) gm/dl Albumin 4.0 (3.4-5.0) gm/dl Globulin 2.9 (2.5-4.0) gm/dl Albumin/Globulin Ratio 1.4 (0.9-2) Lipase 9 L (11-82) U/L Administered Medications Discontinued Medications Acetaminophen (Ofirmev) 1,000 mg in 100 mls @ 400 mls/hr IV NOW STA Stop: 03/05/24 10:41 Last Infusion: 03/05/24 10:47 Dose: Infused Documented By: Admin: 03/05/24 10:31 Dose: 400 mls/hr Documented By: ML Piperacillin Sod/Tazobactam Sod (Zosyn) 4.5 gm in 120 mls @ 240 mls/hr IV NOW ONE Stop: 03/05/24 15:14 Last Infusion: 03/05/24 15:52 Dose: Infused Documented By: Admin: 03/05/24 15:18 Dose: 240 mls/hr Documented By: ZHEN Ioversol (Optiray 320 125ml) 118 ml IV ONCE ONE Stop: 03/05/24 11:29 Last Admin: 03/05/24 11:28 Dose: 118 ml Documented By: JIMMIE Ketorolac Tromethamine (Ketorolac Tromethamine 15 Mg/Ml Vial) 15 mg IV NOW STA Stop: 03/05/24 14:28 Last Admin: 03/05/24 14:30 Dose: 15 mg Documented By: ZHEN Imaging Data Radiologist's Impression: Chest CTA 03/05/24 10:20 CHEST CTA for PULMONARY ARTERIES CT DOSE: 897.76 mGy.cm HISTORY: Chest Pain, eval for PE TECHNIQUE: Multiaxial CT images of the chest were performed following the intravenous administration of contrast to evaluate the pulmonary arteries. 3D/Maximal intensity projection images were also obtained. Sagittal and coronal reformations were also reviewed. A dose lowering technique was utilized adhering to the principles of ALARA. COMPARISON STUDY: Chest CTA 11/18/2023. FINDINGS: Normal caliber thoracic aorta with no evidence for a dissection. No filling defects within the pulmonary arteries to suggest a pulmonary embolus. Limited views of the upper abdomen demonstrate hepatic steatosis and a normal spleen. The visualized adrenal glands are unremarkable. No mediastinal or hilar lymphadenopathy. Normal esophagus. No pleural or pericardial effusions. The heart is mildly enlarged. No acute fractures within the chest. No pneumothorax. Emphysema again noted. Mild bronchial wall thickening, unchanged. This is likely chronic. Mild dependent changes seen at the lung bases. There is a small focal wedge-shaped density within the base the right lower lobe which is new from the prior study. This is best seen on image 53. This could represent atelectasis or a small focus of inflammatory/infectious change. IMPRESSION: 1. No evidence for pulmonary embolus. 2. Emphysema. 3. A new small focal wedge-shaped density within the base of the right lower lobe. This could represent atelectasis or a small focus of inflammatory/infectious change. 4. Bronchial wall thickening, unchanged. ACT 112: Negative or not required by law. Electronically signed by: Anthony Armenta M.D. 03/05/2024 12:00 PM Chest X-Ray 03/05/24 10:20 XR chest 1V portable HISTORY: Cough. Chest pain, nonspecific COMPARISON: Chest 11/2623. FINDINGS: No pneumothorax. No pleural effusions. The heart is normal in size. Emphysema and mild chronic interstitial thickening again noted. No acute fractures. Left basilar linear densities persist and favor subsegmental atelectasis or scarring. IMPRESSION: 1. No significantly changed compared the prior study. 2. Emphysema. 3. Left basilar linear densities persist and favor subsegmental atelectasis or scarring. ACT 112: Negative or not required by law. Electronically signed by: Anthony Armenta M.D. 03/05/2024 10:38 AM Gallbladder Ultrasound 03/05/24 10:26 ABDOMINAL ULTRASOUND, RIGHT UPPER QUADRANT HISTORY: ruq/chest pain. COMPARISON: Abdominal ultrasound 02/03/2023. FINDINGS: Pancreas: The pancreatic head is obscured by overlying bowel gas. The remaining portions of the pancreas are within normal limits. Liver: The liver is echogenic consistent with fatty change. 18 cm in length. No hepatic masses. Gallbladder: The gallbladder wall is at the upper limits of normal measuring 3 mm. No pericholecystic fluid. There are multiple small gallstones. Questionable positive sonographic Sexton sign. CBD: 5 mm. Right kidney: No hydronephrosis. IMPRESSION: 1. Equivocal findings for acute cholecystitis with borderline gallbladder wall thickening, multiple gallstones, and a questionable positive sonographic Sexton sign. Clinical correlation recommended to assess for an early acute cholecystitis. 2. Normal caliber common bile duct. 3. Hepatic steatosis. ACT 112: Negative or not required by law. Electronically signed by: Anthony Armenta M.D. 03/05/2024 2:29 PM Discharge Plan Visit Data Chief Complaint: Rib Injury/Pain Stated Complaint: RIGHT SIDE PAIN, CHEST PAIN ED Provider: Moy Talbot Discharge Problem: Right-sided chest pain, Acute cholecystitis, Pleuritic chest pain, RUQ abdominal pain Patient Disposition: Admitted As Inpatient Condition: Fair Discharge Instructions Interventions: ED Discharge Assessment Last Done: 03/05/24 16:35
[2024-03-05] MEDS: ACETAMINOPHEN 1,000 MG/100 ML VIAL IV STA (10:31)
--- NOTE | 2024-03-05 10:39 | XRay Report ---
XR chest 1V portable HISTORY: Cough. Chest pain, nonspecific COMPARISON: Chest 11/2623. FINDINGS: No pneumothorax. No pleural effusions. The heart is normal in size. Emphysema and mild transportation design engineer sarwat interstitial thickening again noted. No acute fractures. Left basilar linear densities persist an d favor subsegmental atelectasis or scarring. IMPRESSION: 1. No significantly changed compared the prior study. 2. Emphysema. 3. Left basilar linear densities persist and favor subsegmental atelectasis or scarring. ACT 112: Negative or not required by law. Electronically signed by: Anthony Armenta M.D. 03/05/2024 10:38 AM
[2024-03-05 10:53] LABS: Basophils # (auto) 0.01 K/uL (0.00-0.20); Basophils % (auto) 0.1 %; Hematocrit (blood only) 43.1 % (42.0-52.0); Immature Granulocytes # (auto) 0.02 K/uL (0.01-0.20); Immature Granulocytes % (auto) 0.3 %; Lymphocytes # (auto) 0.93 K/uL (1.20-3.40); Lymphocytes % (auto) 12.2 %; Mean Corpuscular Hemoglobin 28.9 pg (25.0-34.0); Mean Corpuscular Hgb Conc 32.5 g/dL (32.0-36.0); Mean Platelet Volume 10.4 fL (9.4-12.4); Monocytes # (auto) 0.69 K/uL (0.11-0.59); Neutrophils # (auto) 5.98 K/uL (1.40-6.50); Neutrophils % (auto) 78.4 %; Platelet Count 338 K/uL (130-400); RDW Coefficient of Variation 15.2 % (11.5-14.5); RDW Standard Deviation 49.6 fL (36.4-46.3); Red Blood Count 4.84 M/uL (4.70-6.10); White Blood Count 7.63 K/ul (4.8-10.8)
[2024-03-05 11:03] LABS: Albumin Globulin Ratio 1.4 (0.9-2); BUN Creatinine Ratio 11.5 (10-20); Bilirubin,Total 0.9 mg/dl (0.2-1.0); Calcium 9.1 mg/dl (8.6-10.3); Creatinine Clr Calc Pharmacy 83.7 ml/min; Est GFR (African American) 90.5 ml/min; Est GFR (Non-African American) 78.1 ml/min; Globulin 2.9 gm/dl (2.5-4.0); Potassium 4.1 mmol/L (3.5-5.1); Total Protein 6.9 gm/dl (6.0-8.3)
[2024-03-05 11:09] LABS: Troponin I High Sensitivity 9.3 pg/ml (0-20)
[2024-03-05 11:13] LABS: Partial Thromboplastin Ratio 1.2; Partial Thromboplastin Time 32 Seconds (21-31); Prothrombin Time 11.3 Seconds (9.0-12.0)
[2024-03-05] MEDS: OPTIRAY 320 125ml IV ONE (11:28)
--- NOTE | 2024-03-05 12:01 | CT Scan Report ---
CHEST CTA for PULMONARY ARTERIES CT DOSE: 897.76 mGy.cm HISTORY: Chest Pain, eval for PE TECHNIQUE: Multiaxial CT images of the chest were performed following the intravenous administration of contrast to evaluate the pulmonary arteries. 3D/Maximal intensity projection images were also obta ined. Sagittal and coronal reformations were also reviewed. A dose lowering technique was utilized a dhering to the principles of ALARA. COMPARISON STUDY: Chest CTA 11/18/2023. FINDINGS: Normal caliber thoracic aorta with no evidence for a dissection. No filling defects within the pulmonary arteries to suggest a pulmonary embolus. Limited views of the upper abdomen demonstrate hepatic steatosis and a normal spleen. The visualized adrenal glands are unremarkable. No mediastina l or hilar lymphadenopathy. Normal esophagus. No pleural or pericardial effusions. The heart is mildl y enlarged. No acute fractures within the chest. No pneumothorax. Emphysema again noted. Mild bronchi al wall thickening, unchanged. This is likely chronic. Mild dependent changes seen at the lung bases. There is a small focal wedge-shaped density within the base the right lower lobe which is new from t he prior study. This is best seen on image 53. This could represent atelectasis or a small focus of i nflammatory/infectious change. IMPRESSION: 1. No evidence for pulmonary embolus. 2. Emphysema. 3. A new small focal wedge-shaped density within the base of the right lower lobe. This could represe nt atelectasis or a small focus of inflammatory/infectious change. 4. Bronchial wall thickening, unchanged. ACT 112: Negative or not required by law. Electronically signed by: Anthony Armenta M.D. 03/05/2024 12:00 PM
[2024-03-05] MEDS: KETOROLAC TROMETHAMINE 15 MG/ML VIAL IV STA (14:30)
--- NOTE | 2024-03-05 14:31 | Ultrasound Report ---
ABDOMINAL ULTRASOUND, RIGHT UPPER QUADRANT HISTORY: ruq/chest pain. COMPARISON: Abdominal ultrasound 02/03/2023. FINDINGS: Pancreas: The pancreatic head is obscured by overlying bowel gas. The remaining portions of the pancr eas are within normal limits. Liver: The liver is echogenic consistent with fatty change. 18 cm in length. No hepatic masses. Gallbladder: The gallbladder wall is at the upper limits of normal measuring 3 mm. No pericholecystic fluid. There are multiple small gallstones. Questionable positive sonographic Sexton sign. CBD: 5 mm. Right kidney: No hydronephrosis. IMPRESSION: 1. Equivocal findings for acute cholecystitis with borderline gallbladder wall thickening, multiple g allstones, and a questionable positive sonographic Sexton sign. Clinical correlation recommended to a ssess for an early acute cholecystitis. 2. Normal caliber common bile duct. 3. Hepatic steatosis. ACT 112: Negative or not required by law. Electronically signed by: Anthony Armenta M.D. 03/05/2024 2:29 PM
--- NOTE | 2024-03-05 14:58 | History & Physical Report ---
Date of Service March 05, 2024 Assessment & Plan (1) Acute cholecystitis: Plan: Right lower rib pain x 4 days No leukocytosis; afebrile LFTs WNL Gallbladder U/S on arrival revealed acute cholecystitis Appreciate general surgery consult HIDA scan ordered, pending (may not be able to get it until 03/06) Pending HIDA, will try to fit into the OR on 03/06 N.p.o. at midnight Zosyn 4.5 g IV q8h MRSA swab ordered, pending Pain control with acetaminophen and Toradol as needed Zofran as needed for nausea/vomiting A.m. CBC, BMP, mag (2) Pleuritic chest pain: Plan: Right lower chest wall pain with deep breaths; patient also endorses productive cough (yellow sputum production) Troponin WNL Chest CTA revealed no pulmonary embolism, but noted a small focal wedge-shaped density (atelectasis v. inflammatory/infectious process) Zosyn (as above) to cover for potential pneumonia Sputum culture ordered, pending (3) Crohns disease: Plan: Continue mesalamine Plan Disposition: Admit to [facility] [place] Full code Clear liquid diet; n.p.o. at midnight VTE PPx: SCDs History of Present Illness Chief Complaint: RUQ, right flank/rib pain Primary Care Provider: Jocelyne Joey Ordonez is a 73-year-old male with PMH of Crohn's disease, ADELAIDA, severe persistent asthma, HTN, hypothyroidism, diastolic heart failure, COPD, SBO, and BPH. He presented for right lower rib pain x 4 days. The patient notes that he developed some constipation on Thursday 03/01, shortly after doing some yard work (mowing grass, pulling weeds). He denies straining himself, or injury/trauma to the chest wall, abdomen, or pelvis. The pain is located in his RUQ abdomen right below his last rib. Characterizes the pain as sharp, stabbing, intermittent pain; rated 8/10 at worst, 6/10 after receiving pain medicine in the ED. He has not been taking any additional medications at home for the pain. No radiation to the back, chest wall, or lower abdomen. Pain is worse with deep breaths and certain movements. Hx of known gallstones, but no prior issues with his gallbladder. No PMH of DVT/PE. Patient had 1 similar episode around 4 months ago in his RUQ, but this pain went away. The pain is not increased when he has fatty or greasy meals; for instance, he had [employer] a couple nights ago and this did not exacerbate the pain. No recent change in diet. No prior abdominal surgeries. Patient took all of his regular morning medications today; only recent change in medication was that he was switched from Entyvio to Skyrizi due to dark tarry stools. Patient is not currently on any blood thinners. He reports that he is still passing gas; last BM was this morning on 03/05. Patient is hypertensive at 161/78 at time of admission; vitals otherwise stable. ED course: Zosyn 4.5 g IV Acetaminophen 1000 mg IV Toradol 15 mg IV ROS: Patient endorses R lower rib pain with deep breaths, productive cough (yellow sputum), or constipation. Patient denies fever, chills, night-sweats, dizziness, lightheadedness, ARECHIGA, chest pain, chest palpitations, hemoptysis, lower abd pain, N/V/D, changes in urinary/bowel habits, recent dark/tarry stools, bright red blood in the urine/stool, saddle anesthesia, lower back pain, or N/T/pain in the arms or legs. Allergies Allergy/AdvReac Type Severity Reaction Status Date / Time No Known Allergies Allergy Verified 03/05/24 12:00 Home Medications Medication Instructions Recorded Confirmed Type ascorbic acid (vitamin C) 500 mg 500 mg PO QAM 09/01/18 03/05/24 History tablet (Vitamin C) cholecalciferol (vitamin D3) 25 1,000 unit PO QAM 09/01/18 03/05/24 History mcg (1,000 unit) chewable tablet (Vitamin D3) colestipol 1 gram tablet 1 g PO BID 09/01/18 03/05/24 History levothyroxine 112 mcg tablet 112 mcg PO QAM 09/01/18 03/05/24 History loperamide 2 mg capsule (Imodium 2 mg PO QAM 09/01/18 03/05/24 History A-D) multivitamin 1 tab PO QAM 09/01/18 03/05/24 History clotrimazole-betamethasone 1 1 appln topical BID PRN Rash 04/30/19 03/05/24 History %-0.05 % topical cream mesalamine 0.375 gram 1.5 g PO QAM 04/30/19 03/05/24 History capsule,extended release 24 hr potassium chloride 10 mEq 10 meq PO QAM 09/10/22 03/05/24 History capsule,extended release ferrous sulfate 325 mg (65 mg 325 mg PO QAM 02/03/23 03/05/24 History iron) tablet omeprazole 20 mg capsule,delayed 20 mg PO QAM 02/03/23 03/05/24 History release rosuvastatin 10 mg tablet (Crestor) 10 mg PO HS 02/03/23 03/05/24 History budesonide-formoterol HFA 160 2 inh inhalation BID 08/15/23 03/05/24 History mcg-4.5 mcg/actuation aerosol inhaler (Symbicort) finasteride 5 mg tablet 5 mg PO QAM 08/15/23 03/05/24 History trazodone 150 mg tablet 150 mg PO HS 08/15/23 03/05/24 History benralizumab 30 mg/mL subcutaneous See Rx Instructions .Route 08/22/23 03/05/24 Rx syringe (Fasenra) .COMPLEX #1 ea tiotropium bromide 2.5 2 inh inhalation QAM #12 grams 10/17/23 03/05/24 Rx mcg/actuation mist for inhalation (Spiriva Respimat) albuterol sulfate 90 mcg/actuation 1 puff inhalation Q6H PRN 11/09/23 03/05/24 Rx aerosol inhaler (ProAir HFA) Shortness Of Breath #8.5 grams tamsulosin 0.4 mg capsule (Flomax) 0.8 mg (2 x 0.4 mg) PO HS BPH #180 02/20/24 03/05/24 Rx caps Skyrizi Inj 1 dose INJ DIRECTED 03/05/24 03/05/24 History Past Med/Surg History Problem List (Updated 03/05/24 @ 17:07 by Moy Talbot MD) RUQ abdominal pain (Acute) Pleuritic chest pain (Acute) Acute cholecystitis (Acute) Right-sided chest pain (Acute) Crohns disease Acute cholecystitis Edema of left lower extremity Acute hypoxemic respiratory failure Small bowel obstruction 08/2022 - treated at [facility] with NG Tube - no surgery. 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 Severe persistent asthma History of cardiac catheterization (Acute) 03/2017 @ [facility] with Dr. Teague--NO stents Hypertension Hypothyroid Diastolic heart failure Medical History History of esophageal dilatation (~2002) History of melanoma COPD (chronic obstructive pulmonary disease) inhaler/nebulizer prn Surgical History History of esophagogastroduodenoscopy (EGD) (~2002) Hx of vasectomy History of melanoma excision above right eye History of tooth extraction all lower teeth/partial upper History of tonsillectomy History of bilateral cataract extraction History of bronchoscopy multiple History of colonoscopy with polypectomy Family History Other Hypertension No family history of adverse response to anesthesia No significant family history Denies family history of Myocardial infarction Stroke Social History Smoking Status: Former smoker Tobacco Type: Cigarettes Age Started Using Tobacco: 17; Age Quit Using Tobacco: 50; Cigarettes Per Day: stopped 25 years ago; Smoking End Date: 25 years ago; Second Hand Exposure: No; Do You Dip or Chew Tobacco: No; Tobacco Cessation Education Requested by Patient: No Hx Alcohol Use: No Hx Substance Use: No Preferred Language: Chinese Communication Ability: Effective Visual Impairment: No Limitations Hearing Ability: Normal Insole Tape Stitcher [place] Required: No Beliefs That Will Affect Care: None Current Living Situation: Spouse and Family Current Living Situation Comment: Lives with and stepson Other Information That Helps Us Care for You: No Feels Safe at Home: Yes Safety Concerns: Feels Safe At This Time Assistive Devices: None Review of Systems Review of Systems: See HPI above Physical Exam Physical Exam: General: no acute distress; pleasant affect; non-toxic appearing; well-nourishe d; cooperative; SpO2 95% on RA HEENT: normocephalic, atraumatic; no scleral icterus; PERRLA; moist mucus membrane; vision and hearing grossly intact Neck: supple; no lymphadenopathy; trachea midline Skin: warm, dry without signs of tenting; no cyanosis; no rashes, bruising, lesions, or erythema noted CV: chest wall NTP; RRR; S1/S2 normal; no murmurs/rubs/gallops; pulses intact and symmetric at radial, DP, and PT Lungs: no acute respiratory distress; symmetrical chest wall expansion; clear breath sounds across all lung [place] w/o adventitious sounds; no wheezing ABD: Soft; RUQ and right flank are TTP; positive Sexton sign; BS present; no rebound/guarding; mild distention secondary to body habitus; no rashes erythema or bruising on the abdomen or flanks MSK: no tics or fasciculations; no edema noted in the LEs b/l, nonerythematous Neuro: A&Ox3; normal mood and affect; fluent speech; no focal deficits; sensation grossly intact in the LEs b/l Results & Data Results & Data Vital Signs (Past 12 Hours) Vital Signs Temp Pulse Pulse Resp BP BP Pulse Ox 03/05/24 12:11 58 L 16 161/78 H 94 03/05/24 10:32 94 03/05/24 10:32 63 18 161/78 H 93 03/05/24 10:28 65 03/05/24 10:17 36.7 C 72 18 153/63 H 94 O2 Del Method 03/05/24 12:11 Room Air 03/05/24 10:32 Room Air 03/05/24 10:32 Room Air 03/05/24 10:28 03/05/24 10:17 Room Air Laboratory Results Abnormal lab results 03/05/24 Range/Units 10:29 RDW Std Deviation 49.6 H (36.4-46.3) fL RDW Coeff of Ryan 15.2 H (11.5-14.5) % Lymph # (Auto) 0.93 L (1.20-3.40) K/uL Humphreys # (Auto) 0.69 H (0.11-0.59) K/uL APTT 32 H (21-31) Seconds Glucose 150 H (70-99(Fasting)) mg/dl Lipase 9 L (11-82) U/L Diagnostic Findings Chest CTA 03/05/24 10:20 CHEST CTA for PULMONARY ARTERIES CT DOSE: 897.76 mGy.cm HISTORY: Chest Pain, eval for PE TECHNIQUE: Multiaxial CT images of the chest were performed following the intravenous administration of contrast to evaluate the pulmonary arteries. 3D/Maximal intensity projection images were also obtained. Sagittal and coronal reformations were also reviewed. A dose lowering technique was utilized adhering to the principles of ALARA. COMPARISON STUDY: Chest CTA 11/18/2023. FINDINGS: Normal caliber thoracic aorta with no evidence for a dissection. No filling defects within the pulmonary arteries to suggest a pulmonary embolus. Limited views of the upper abdomen demonstrate hepatic steatosis and a normal spleen. The visualized adrenal glands are unremarkable. No mediastinal or hilar lymphadenopathy. Normal esophagus. No pleural or pericardial effusions. The heart is mildly enlarged. No acute fractures within the chest. No pneumothorax. Emphysema again noted. Mild bronchial wall thickening, unchanged. This is likely chronic. Mild dependent changes seen at the lung bases. There is a small focal wedge-shaped density within the base the right lower lobe which is new from the prior study. This is best seen on image 53. This could represent atelectasis or a small focus of inflammatory/infectious change. IMPRESSION: 1. No evidence for pulmonary embolus. 2. Emphysema. 3. A new small focal wedge-shaped density within the base of the right lower lobe. This could represent atelectasis or a small focus of inflammatory/infectious change. 4. Bronchial wall thickening, unchanged. ACT 112: Negative or not required by law. Electronically signed by: Anthony Armenta M.D. 03/05/2024 12:00 PM Chest X-Ray 03/05/24 10:20 XR chest 1V portable HISTORY: Cough. Chest pain, nonspecific COMPARISON: Chest 11/2623. FINDINGS: No pneumothorax. No pleural effusions. The heart is normal in size. Emphysema and mild chronic interstitial thickening again noted. No acute fractures. Left basilar linear densities persist and favor subsegmental atelectasis or scarring. IMPRESSION: 1. No significantly changed compared the prior study. 2. Emphysema. 3. Left basilar linear densities persist and favor subsegmental atelectasis or scarring. ACT 112: Negative or not required by law. Electronically signed by: Anthony Armenta M.D. 03/05/2024 10:38 AM Gallbladder Ultrasound 03/05/24 10:26 ABDOMINAL ULTRASOUND, RIGHT UPPER QUADRANT HISTORY: ruq/chest pain. COMPARISON: Abdominal ultrasound 02/03/2023. FINDINGS: Pancreas: The pancreatic head is obscured by overlying bowel gas. The remaining portions of the pancreas are within normal limits. Liver: The liver is echogenic consistent with fatty change. 18 cm in length. No hepatic masses. Gallbladder: The gallbladder wall is at the upper limits of normal measuring 3 mm. No pericholecystic fluid. There are multiple small gallstones. Questionable positive sonographic Sexton sign. CBD: 5 mm. Right kidney: No hydronephrosis. IMPRESSION: 1. Equivocal findings for acute cholecystitis with borderline gallbladder wall thickening, multiple gallstones, and a questionable positive sonographic Sexton sign. Clinical correlation recommended to assess for an early acute cholecystitis. 2. Normal caliber common bile duct. 3. Hepatic steatosis. ACT 112: Negative or not required by law. Electronically signed by: Anthony Armenta M.D. 03/05/2024 2:29 PM ECG Additional Comments: ECG revealed NSR at 69 bpm; QTc 439 Code Status & VTE Plan Code Status Full code VTE Prophylaxis Plan VTE Prophylaxis will be ordered: Yes Supervising Physician Co-Signing Physician Notes Patient seen and examined, chart reviewed, case discussed with Anthony Fortune PA-C and I agree with the assessment and plan as above except as otherwise noted Labs and images reviewed 73-year-old male with a past medical history of sleep apnea, severe asthma, hypothyroidism, heart failure with preserved ejection fraction, COPD, Crohn's disease, small bowel obstruction, BPH who presented with 3-4 days of right upper abdominal/lower rib discomfort worse with movement and inspiration. Patient has a history of gallstones. Gallbladder ultrasound equivocal for acute cholecystitis with multiple gallstones and questionable Sexton's. Patient did have a CTA due to pleuritic chest pain/inspiratory pain however no PE is noted. Lung sounds are diminished in the right lower lobe. There is a wedge-shaped density in the right lower lobe? Atelectasis versus pneumonia, increased risk as patient has been splinting his breathing due to discomfort MRSA nares pending. Patient is covered with Zosyn for cholecystitis this also provide broad coverage for potential pneumonia. If positive can switch to Vanco/Rocephin/Flagyl. No history of resistant infections. Transaminases are not elevated, patient meets low risk criteria. Surgery consulted. NPO. HIDA pending. Assessment and management above. PG Care Time/CCT Total # of Minutes Spent Total Time Spent with Patient: Total time spent is greater than 50% in coordination of care (as documented) at patient's floor/unit and/or counseling patient: [place] [address] INT INP/OBS CARE 3/75MIN Patient Type Established History Comprehensive Exam Comprehensive Medical Decision Making High Complexity Diagnoses Acute cholecystitis K81.0 Pleuritic chest pain R07.81 Crohns disease K50.90
--- NOTE | 2024-03-05 15:13 | Surgery Consultation ---
Date of Consultation March 05, 2024 Assessment & Plan (1) Acute cholecystitis: This is a 73yM with a PMH of Crohn's, COPD, h/o cardiac cath without stents, hypothyroid, HTN, heart failure who presents to the [facility] ED on 03/05/24 with complaints of R sided abdominal pain that started 4 days ago. It hurts in particular with deep breathing and any type of exercise. He has been doing yard work. The pain is unrelated to food intake. He came into the ER for further evaluation. He was worked up with a RUQ US that revealed equivocal findings for acute cholecystitis with borderline gallbladder wall thickening, multiple gallstones, and a questionable positive sonographic Sexton sign. Normal caliber common bile duct. He also underwent a Chest CTA that ruled out pulmonary embolus and showed a new small focal wedge-shaped density within the base of the right lower lobe. This could represent atelectasis or a small focus of inflammatory/infectious change. Labs reveal normal WBC 7.6, Hbg 14, LFTs within normal limits of Tb 0.9, AST 22, ALT 24. Vitals are stable and patient afebrile. On examination abdomen is soft, there is discomfort to palpation in the RUQ and R flank regions. Recommend admission to hospital for further workup as it is not 100% certain this is gallbladder etiology. A HIDA scan will give us a better indication if this is indeed acute cholecystitis. He does have concern for RLL density concerning for atelectasis or inflammatory/infectious change with discomfort with deep breaths. he is being started on IV zosyn for this as well. Will continue to monitor. keep NPO at midnight in the event of any surgical procedures tomorrow pending HIDA scan. History of Present Illness History of Present Illness This is a 73yM with a PMH of Crohn's, COPD, h/o cardiac cath without stents, hypothyroid, HTN, heart failure who presents to the [facility] ED on 03/05/24 with complaints of R sided abdominal pain. Patient states his pain started 4 days ago. It hurts in particular with deep breathing and any type of exercise. He has been doing yard work. At it's worst the pain is an 8/10 in severity when it flares up. It is not constant. Due to ongoing symptoms he came into the ER for further evaluation. He was worked up with a RUQ US that revealed equivocal findings for acute cholecystitis with borderline gallbladder wall thickening, multiple gallstones, and a questionable positive sonographic Sexton sign. Normal caliber common bile duct. He also underwent a Chest CTA that ruled out pulmonary embolus and showed a new small focal wedge-shaped density within the base of the right lower lobe. This could represent atelectasis or a small focus of inflammatory/infectious change. The patient denies any fevers/chills, CP, or new SOB. Runs constipated but has been having BM's. Had pain like this 4 months ago that self resolved. He has no prior abdominal surgical history. He has no issues with eating fatty, greasy/spicy foods. The pain does not worsen with food intake. Last colonoscopy 1 year ago. Allergies Allergy/AdvReac Type Severity Reaction Status Date / Time No Known Allergies Allergy Verified 03/05/24 12:00 Home Medications Medication Instructions Recorded Confirmed Type ascorbic acid (vitamin C) 500 mg 500 mg PO QAM 09/01/18 03/05/24 History tablet (Vitamin C) cholecalciferol (vitamin D3) 25 1,000 unit PO QAM 09/01/18 03/05/24 History mcg (1,000 unit) chewable tablet (Vitamin D3) colestipol 1 gram tablet 1 g PO BID 09/01/18 03/05/24 History levothyroxine 112 mcg tablet 112 mcg PO QAM 09/01/18 03/05/24 History loperamide 2 mg capsule (Imodium 2 mg PO QAM 09/01/18 03/05/24 History A-D) multivitamin 1 tab PO QAM 09/01/18 03/05/24 History clotrimazole-betamethasone 1 1 appln topical BID PRN Rash 04/30/19 03/05/24 History %-0.05 % topical cream mesalamine 0.375 gram 1.5 g PO QAM 04/30/19 03/05/24 History capsule,extended release 24 hr potassium chloride 10 mEq 10 meq PO QAM 09/10/22 03/05/24 History capsule,extended release ferrous sulfate 325 mg (65 mg 325 mg PO QAM 02/03/23 03/05/24 History iron) tablet omeprazole 20 mg capsule,delayed 20 mg PO QAM 02/03/23 03/05/24 History release rosuvastatin 10 mg tablet (Crestor) 10 mg PO HS 02/03/23 03/05/24 History budesonide-formoterol HFA 160 2 inh inhalation BID 08/15/23 03/05/24 History mcg-4.5 mcg/actuation aerosol inhaler (Symbicort) finasteride 5 mg tablet 5 mg PO QAM 08/15/23 03/05/24 History trazodone 150 mg tablet 150 mg PO HS 08/15/23 03/05/24 History benralizumab 30 mg/mL subcutaneous See Rx Instructions .Route 08/22/23 03/05/24 Rx syringe (Fasenra) .COMPLEX #1 ea tiotropium bromide 2.5 2 inh inhalation QAM #12 grams 10/17/23 03/05/24 Rx mcg/actuation mist for inhalation (Spiriva Respimat) albuterol sulfate 90 mcg/actuation 1 puff inhalation Q6H PRN 11/09/23 03/05/24 Rx aerosol inhaler (ProAir HFA) Shortness Of Breath #8.5 grams tamsulosin 0.4 mg capsule (Flomax) 0.8 mg (2 x 0.4 mg) PO HS BPH #180 02/20/24 03/05/24 Rx caps Skyrizi Inj 1 dose INJ DIRECTED 03/05/24 03/05/24 History Patient History Medical History History of esophageal dilatation (~2002) History of melanoma COPD (chronic obstructive pulmonary disease) inhaler/nebulizer prn Surgical History History of esophagogastroduodenoscopy (EGD) (~2002) Hx of vasectomy History of melanoma excision above right eye History of tooth extraction all lower teeth/partial upper History of tonsillectomy History of bilateral cataract extraction History of bronchoscopy multiple History of colonoscopy with polypectomy Family History Other Hypertension No family history of adverse response to anesthesia No significant family history Denies family history of Myocardial infarction Stroke Social History Smoking Status: Former smoker Tobacco Type: Cigarettes Age Started Using Tobacco: 17; Age Quit Using Tobacco: 50; Cigarettes Per Day: stopped 25 years ago; Smoking End Date: 25 years ago; Second Hand Exposure: No; Do You Dip or Chew Tobacco: No; Tobacco Cessation Education Requested by Patient: No Hx Alcohol Use: No Hx Substance Use: No Preferred Language: Irish Communication Ability: Effective Visual Impairment: No Limitations Hearing Ability: Normal Nursery Helper Required: No Beliefs That Will Affect Care: None Current Living Situation: Spouse and Family Current Living Situation Comment: Lives with and stepson Other Information That Helps Us Care for You: No Feels Safe at Home: Yes Safety Concerns: Feels Safe At This Time Assistive Devices: None Review of Systems Constitutional: no fever and no chills Respiratory: + dyspnea pain in abdomen with deep breathing Cardiovascular: no chest pain Gastrointestinal: + abdominal pain (RUQ, lower rib cage); no nausea and no vomiting Physical Exam Physical Exam: awake/alert, no distress Constitutional: well developed and well nourished; no acute distress Respiratory: normal respiratory effort Gastrointestinal (Abdomen): Inspection/Auscultation: abdomen not distended Percussion/Palpation: + abdomen tender (discomfort noted in RUQ and R flank regions) and abdomen soft; no guarding Results & Data Vital Signs (Past 12 Hours) Vital Signs Temp Pulse Pulse Resp BP BP Pulse Ox 03/05/24 12:11 58 L 16 161/78 H 94 03/05/24 10:32 94 03/05/24 10:32 63 18 161/78 H 93 03/05/24 10:28 65 03/05/24 10:17 98.1 F 72 18 153/63 H 94 O2 Del Method 03/05/24 12:11 Room Air 03/05/24 10:32 Room Air 03/05/24 10:32 Room Air 03/05/24 10:28 03/05/24 10:17 Room Air Diagnostic Findings ABDOMINAL ULTRASOUND, RIGHT UPPER QUADRANT HISTORY: ruq/chest pain. COMPARISON: Abdominal ultrasound 02/03/2023. FINDINGS: Pancreas: The pancreatic head is obscured by overlying bowel gas. The remaining portions of the pancreas are within normal limits. Liver: The liver is echogenic consistent with fatty change. 18 cm in length. No hepatic masses. Gallbladder: The gallbladder wall is at the upper limits of normal measuring 3 mm. No pericholecystic fluid. There are multiple small gallstones. Questionable positive sonographic Sexton sign. CBD: 5 mm. Right kidney: No hydronephrosis. IMPRESSION: 1. Equivocal findings for acute cholecystitis with borderline gallbladder wall thickening, multiple gallstones, and a questionable positive sonographic Sexton sign. Clinical correlation recommended to assess for an early acute cholecystitis. 2. Normal caliber common bile duct. 3. Hepatic steatosis. ACT 112: Negative or not required by law. Electronically signed by: Anthony Armenta M.D. 03/05/2024 2:29 PM CHEST CTA for PULMONARY ARTERIES CT DOSE: 897.76 mGy.cm HISTORY: Chest Pain, eval for PE TECHNIQUE: Multiaxial CT images of the chest were performed following the intravenous administration of contrast to evaluate the pulmonary arteries. 3D/Maximal intensity projection images were also obtained. Sagittal and coronal reformations were also reviewed. A dose lowering technique was utilized adhering to the principles of ALARA. COMPARISON STUDY: Chest CTA 11/18/2023. FINDINGS: Normal caliber thoracic aorta with no evidence for a dissection. No filling defects within the pulmonary arteries to suggest a pulmonary embolus. Limited views of the upper abdomen demonstrate hepatic steatosis and a normal spleen. The visualized adrenal glands are unremarkable. No mediastinal or hilar lymphadenopathy. Normal esophagus. No pleural or pericardial effusions. The heart is mildly enlarged. No acute fractures within the chest. No pneumothorax. Emphysema again noted. Mild bronchial wall thickening, unchanged. This is likely chronic. Mild dependent changes seen at the lung bases. There is a small focal wedge-shaped density within the base the right lower lobe which is new from the prior study. This is best seen on image 53. This could represent atelectasis or a small focus of inflammatory/infectious change. IMPRESSION: 1. No evidence for pulmonary embolus. 2. Emphysema. 3. A new small focal wedge-shaped density within the base of the right lower lobe. This could represent atelectasis or a small focus of inflammatory/infectious change. 4. Bronchial wall thickening, unchanged. ACT 112: Negative or not required by law. Electronically signed by: Anthony Armenta M.D. 03/05/2024 12:00 PM PG Care Time/CCT Total # of Minutes Spent Total Time Spent with Patient: Total time spent is greater than 50% in coordination of care (as documented) at patient's floor/unit and/or counseling patient: Coding Level of Care Code 86198 OP VST NEW MOD 45 MIN Diagnoses Acute cholecystitis K81.0
[2024-03-05] MEDS: PIPERACILLIN/TAZOBACTAM 4.5 GM/120 ML BAG IV ONE (15:18)
[2024-03-05] MEDS ORDERED: ALBUTEROL HFA 8 GM INHALER INH PRN (16:04)
[2024-03-05] MEDS ORDERED: ONDANSETRON INJ 2 MG/ML 2 ML VIAL IV PRN (16:04)
[2024-03-05] MEDS ORDERED: ACETAMINOPHEN 325 MG TAB PO PRN (16:04)
[2024-03-05] MEDS: PIPERACILLIN/TAZOBACTAM 4.5 GM in DEXTROSE 5% MINI-B 100 ML IV SCH (20:50)
[2024-03-05] MEDS: traZODone HCL 50 MG TAB PO SCH (20:51)
[2024-03-05] MEDS: ROSUVASTATIN CALCIUM 10 MG TAB PO SCH (20:51)
[2024-03-05] MEDS: COLESTIPOL HCL 1 GM TAB PO SCH (20:51)
[2024-03-05] MEDS: TAMSULOSIN HCL 0.4 MG CAP PO SCH (20:51)
--- OUTSIDE RECORDS SUMMARY | 2024-03-05 23:12 | External Medical Summary | Continuity of Care Document ---
Author Name Unknown Organization [facility] [address] Address [address] [place], [place] [id number] Care Team Providers Care Coin Teller Name Role Phone Jocelyne Cook Primary Care Physician [phone] Encounter [facility] [id number] Date(s): 01/25/24 - 01/25/24 [facility] [address] [facility] [address] [facility] [address] [place], [place] [phone] Encounter Diagnosis Crohn's disease of both small and large intestine without complications(Final) - Iron deficiency anemia, unspecified(Final) - Discharge Disposition: Home or Self Care Attending Physician: MD Arrington Brian D Referring Physician: MD Arrington Brian D Allergies, Adverse Reactions, Alerts No Known Allergies Immunizations Given and Recorded Vaccine Date Status Refusal Reason SARS-CoV-2 mRNA (tozinameran 5y-11y) 09/21/22 Tommy rded pneumococcal 20-valent conjugate vaccine 08/25/22 Recorded pneumococcal 20-valent conjugate vaccine 1 08/25/22 Recorded influenza virus vaccine, inactivated 08/23/22 Tommy rded influenza virus vaccine, inactivated 08/04/16 Give n SARS-CoV-2 (COVID-19) mRNA BNT-162b2 vax 01/06/22 Recorded SARS-CoV-2 (COVID-19) mRNA BNT-162b2 vax 2 06/01/21 Recorded SARS-CoV-2 (COVID-19) mRNA BNT-162b2 vax 3 12/21/20 Recorded SARS-CoV-2 (COVID-19) mRNA BNT-162b2 vax 4 11/30/20 Recorded zoster vaccine, inactivated 5 05/30/18 Recorded zoster vaccine, inactivated 01/21/18 Recorded pneumococcal 13-valent vaccine 02/23/17 Given pneumococcal 23-valent vaccine 02/11/16 Given pneumococcal 23-valent vaccine 06/19/11 Given zoster vaccine live 02/11/16 Recorded tetanus/diphtheria/pertuss, acel (Tdap) 6 12/13/15 Given tetanus/diphtheria/pertuss, acel (Tdap) 7 12/30/09 Recorded diphtheria/tetanus/pertuss, acel (DTaP) 8 12/23/09 Recorded 1Result Comment: 2022-08-28: Historical information-source unspecified 2Result Comment: 2021-07-12: Historical information-source unspecified 3Result Comment: 2021-05-02: Historical information-source unspecified 4Result Comment: 2021-05-02: Historical information-source unspecified 5Result Comment: 2021-05-02: Historical information-source unspecified 6Early/Late Reason: Other : 7Result Comment: 2021-05-02: Historical information-source unspecified 8Result Comment: 2021-05-02: Historical information-source unspecified Medications aspirin 81 mg oral delayed release tablet Start: 12/21/23 14:52:00 EDT, 1 tab, PO, Daily, Disp# 90 tab, Refills: 0, other Start Date: 12/21/23 Status: Ordered betamethasone-clotrimazole 0.05%-1% topical cream Start: 05/04/20 13:52:00 EDT, See Instructions, Disp# 45 g, Refills: 1, APPLY TOPICALLY DAILY, USE ON BUTTOCKS NEEDED, Note to Pharmacy: PLEASE KEEP ON FILE FOR PTS NEXT REFILL. Thanks!, Pharmacy:[facility]/pharmacy #[id number], 182.2, cm, 11/13/19 10:14:00 ES... Start Date: 05/04/20 Status: Ordered clotrimazole 1% topical cream Start: 10/23/22 7:51:00 EST, See Instructions, Disp# 45 g, Refills: 3, APPLY TOPICALLY TWICE A DAY TO PERIANAL AREA, Pharmacy: [facility] STORE [id number] Start Date: 10/23/22 Status: Ordered colestipol 1 g oral tablet Start: 10/02/23 8:01:00 EST, 1 tab, PO, bid, Disp# 180 tab, Refills: 3, Pharmacy: [facility] Start Date: 10/02/23 Status: Ordered Entyvio 300 mg intravenous injection Start: 12/06/23 15:07:00 EST, See Instructions, Disp# 1 each, Refills: 8, 300 mg IV every 4 weeks, Note to Pharmacy: Medication needs shipped to: [facility]; [address] ; [place] [address], Pharmacy: [facility] Start Date: 12/06/23 Status: Ordered famotidine 20 mg oral tablet Start: 11/09/23 11:15:00 EST, 1 tab, PO, qhs, Disp# 90 tab, Refills: 0, avoid eating and drinking for 10 minutes after each dose, [facility]acy: [facility] Start Date: 11/09/23 Stop Date: 02/07/24 Status: Ordered Fasenra 30 mg/mL subcutaneous solution Start: 06/27/19 9:53:00 EDT, q8 weeks Start Date: 06/27/19 Status: Ordered finasteride 5 mg oral tablet Start: 12/14/23 11:59:00 EDT, 1 tab, PO, Daily, Disp# 90 tab, Refills: 1, Pharmacy: [facility] Start Date: 12/14/23 Stop Date: 06/11/24 Status: Ordered levothyroxine 112 mcg (0.112 mg) oral tablet Start: 05/23/23 9:00:00 EDT, See Instructions, Disp# 90 tab, Refills: 3, TAKE 1 TABLET DAILY, Pharmacy: [facility] Start Date: 05/23/23 Status: Ordered loperamide 2 mg oral capsule Start: 12/12/23 9:20:00 EDT, See Instructions, Disp# 180 cap, Refills: 3, TAKE 1 CAPSULE TWICE A DAY NEEDED FOR DIARRHEA, Pharmacy: [facility] Start Date: 12/12/23 Status: Ordered mesalamine 0.375 g oral capsule, extended release Start: 08/22/23 11:29:00 EST, 4 cap, PO, qAM, Disp# 360 cap, Refills: 3, [facility]acy: [facility] Start Date: 08/22/23 Status: Ordered potassium chloride 10 mEq oral capsule, extended release Start: 10/02/23 14:07:00 EST, 1 cap, PO, Daily, Disp# 90 cap, Refills: 3, Pharmacy: [facility] Start Date: 10/02/23 Stop Date: 09/26/24 Status: Ordered ProAir HFA 90 mcg/inh inhalation aerosol Start: 02/24/20 10:58:00 EDT, 2 puff, inhaled, qid, Disp# 1 each, Refills: 5, PRN: as needed for wheezing and cough, Pharmacy: [facility]/pharmacy #[id number] Start Date: 02/24/20 Status: Ordered rosuvastatin 5 mg oral tablet Start: 04/04/23 16:22:00 EDT, 1 tab, PO, qhs, Disp# 90 tab, Refills: 3, Pharmacy: [facility] Start Date: 04/04/23 Stop Date: 03/29/24 Status: Suspended Skyrizi Pen 150 mg/mL subcutaneous solution Start: 01/22/24 9:47:00 EDT, See Instructions, Disp# 1 each, Refills: 1, Inject 150mg SQ every 8 weeks after IV induction. Start Date: 01/22/24 Status: Ordered tamsulosin 0.4 mg oral capsule Start: 09/03/23 15:45:00 EST, 2 cap, PO, Daily, 30 minutes after the same meal Start Date: 09/03/23 Status: Ordered traZODone 150 mg oral tablet Start: 10/02/23 8:01:00 EST, 1 tab, PO, qhs, Disp# 90 tab, Refills: 3, Pharmacy: [facility] Start Date: 10/02/23 Status: Ordered Vitamin D3 1000 intl units oral tablet Start: 12/09/12 16:31:00, 1 tab, PO, Daily Start Date: 12/09/12 Status: Ordered Problem List Condition Confirmation Course Effective Dates Status Health Status Informant Diarrhea Confirmed Active Acute respiratory failure Confirmed Active Anemia Confirmed Active Atherosclerosis of aorta 1 Confirmed Active BPH (benign prostatic hyperplasia) Confirmed Active Tarsal tunnel syndrome, bilateral Confirmed Active Bronchiectasis Confirmed Active Bilateral carpal tunnel syndrome Confirmed Active Crohn's disease Confirmed Active Degenerative disc disease 2 Confirmed Active Diastolic heart failure Confirmed Active Disorder of esophagus Confirmed Active DiverticulOSIS Confirmed Active Epigastric pain Confirmed Active Foot pain 3 Confirmed Active GERD (gastroesophageal reflux disease) Confirmed Active History of SCC (squamous cell carcinoma) of skin 4 Confirmed Active Hyperlipemia Confirmed Active Heart disease, hypertensive, with heart failure Confirmed Active Nonfamilial hypogammaglobulinemia Confirmed Active Hypothyroid Confirmed Active Erectile dysfunction Confirmed Active Insomnia Confirmed Active Internal hemorrhoids Confirmed Active Iron deficiency Confirmed Active Iron deficiency anemia Confirmed Active Loss of sense of smell Confirmed Active Lumbalgia Confirmed Active Unilateral mass of neck Confirmed Active Myalgia Confirmed Active Obstructive sleep apnea syndrome Confirmed Active Pain of right thumb Confirmed Active Prediabetes Confirmed Active Emphysema/COPD Confirmed Active Major depressive disorder, recurrent, mild 5 Confirmed Active SBO (small bowel obstruction) Confirmed Active Retrolisthesis of vertebrae 6 Confirmed Active Fatty liver Confirmed Active Weight disorder Confirmed Active 1See outside rad/study 11/10/22 10/17/22 CT SCAN OF THE ABDOMEN AND PELVIS WITH IV CONTRAST FINDINGS:Abdominal vasculature: The abdominal aorta is normal in course and caliber noting moderate to advanced atherosclerotic calcification. 2L5-S1 moderate with the rest being mild 3B/L 4Invasive; Right Lateral forehead PHQ9= 9 6L5-S1 Procedures Procedure Date Related Diagnosis Body Site Status CT of lungs 11/2023 Completed Colonoscopy 1 08/22/23 Completed EGD - esophagogastroduodenoscopy 2 08/22/23 Completed Laboratory findings data interpretation 3, 4 04/20/23 Completed Laboratory findings data interpretation 5, 6 02/09/23 Completed Chest angiography 7 02/03/[address] of abdomen and pelvis 8 02/03/23 Completed Ultrasound scan of gallbladder 9 02/03/23 Completed Laboratory findings data interpretation 10, 11 12/29/22 Completed Laboratory findings data interpretation 12 11/13/[address] of abdomen and pelvis 13, 14 10/17/22 Completed Laboratory findings data interpretation 15 09/18/22 Completed Hospital admission 16 09/11/[address] of abdomen and pelvis 17 09/10/22 Completed KUB X-ray 18 09/10/22 Completed Laboratory findings data interpretation 19 07/24/22 Completed Laboratory findings data interpretation 20 05/29/22 Completed X-ray of rib 21 05/29/22 Completed Laboratory findings data interpretation 22 04/04/22 Completed Laboratory findings data interpretation 23 01/30/22 Completed Laboratory findings data interpretation 24 12/05/21 Completed Laboratory findings data interpretation 25 11/21/21 Completed Laboratory findings data interpretation 26 10/10/21 Completed DEXA - dual energy X-ray absorptiometry 27 09/01/21 Completed Laboratory findings data interpretation 28 08/17/21 Completed Ultrasound finding 29 07/25/21 Com pleted Laboratory findings data interpretation 30 06/20/21 Completed Laboratory findings data interpretation 31 04/25/21 Completed Plain X-ray of left shoulder 32 09/29/20 Completed Shave biopsy and cauterizati on of skin 33 07/27/20 Completed Colonoscopy 34 06/18/20 Completed Shave biopsy and cauterization of skin 04/23/20 Completed Cataract 35 03/02/20 Completed Chest X-ray 36 12/18/19 Completed Spirometry 37 08/21/19 Completed X-ray of right thumb 38 05/27/19 C ompleted Bronchoscopy and bronchoalve olar lavage 39 05/01/19 Completed DEXA (dual energy X-ray phot on absorptiometry) scan of lateral spine 04/07/[address] enterography 40 02/17/19 Comple ananlee Bronchial washing 41 01/06/19 Comp leted Bronchoscopy 42, 43 11/13/18 Compl eted Pathology report 44 09/03/18 Compl eted Colonoscopy 45 04/25/18 Completed Colonoscopy 46 04/25/18 Completed Polysomnograph 47 04/23/18 Complet ed Emergency medical services 48 01/28/18 Completed Bronchoscopy 12/17/17 Completed Ambulatory pH monitoring 49 11/30/17 Completed Upper GI endoscopy 50 11/26/[address] 51 10/19/17 Completed Chest X-ray 52 10/19/17 Completed Echocardiogram 53 10/19/17 Complet ed Cardiac catheterization, rig ht heart 54 03/20/17 Completed Echocardiogram 55, 56 03/15/17 Com pleted Pulmonary function test 57 03/15/17 Completed Videofluoroscopy swallow 58 03/05/17 Completed Duplex scan of arterial infl ow and venous outflow of abdominal, pelvic, scrotal contents and/or retroperitoneal organs; complete study. 59 08/11/16 Completed MRI of lumbar spine 60, 61 03/09/16 Completed Colonoscopy 62, 63 10/13/14 Comple annalee Sacroiliac joint XRAY 64 09/18/14 Completed Spine XRAY 65 09/18/14 Completed Ultrasound-Abdominal 66 09/18/14 C ompleted X-ray of left foot 67 03/27/14 Com pleted colonoscopy 10/30/11 Completed Bronchoscopy 68 Completed 1The examined portion of the ileum was normal. Diverticulosis in the sigmoid colon, in the descending colon and in the transverse colon. The rectum, sigmoid colon, descending colon, splenic flexure, transverse colon, hepatic flexure, ascending colon, cecum and recto-sigmoid colon are normal, Biopsied. Repeat in 3 years. 2Normal esophagus and stomach. Normal examined duodenum. Biopsied. 3Vedolizumab level 20.6. no antibodies. 4BUN nl, CR 0.93 nl, AST nl, ALT nl, CBC Hgb 13.3 L 5BUN 11 nl, Cr 0.88 nl. AST 27 nl, ALT 27 nl, CBC Hgb 13.5 L, 6Vedolizumab level 11.4, No antibodies. 7IMPRESSION: 1. No evidence for a pulmonary embolus. 2. Emphysema. 3. There are small patchy bibasilar lower lobe densities. This may represent atelectasis/dependent change. A low-grade pneumonitis could also have a similar appearance. 8IMPRESSION: 1. No significant change in a long segment of circumferential thickening involving the distal ileumconsistent with the patient's known history of Crohn's disease. There is an additional skip lesion at the mid ileum which is also slightly thickened. This is also unchanged. However, no evidence for bowel obstruction at this time. No new areas of bowel wall thickening identified. 2. Cholelithiasis. 3. Emphysema. 4. Small patchy airspace opacities within the right lung base which may represent atelectasis or a developing pneumonia. 5. Hepatic steatosis. 9IMPRESSION: 1. Cholelithiasis. No gallbladder wall thickening. 2. Hepatic steatosis. 10BUN 8 nl, CR 0.9 nl, AST 23 nl, ALT 22 nl, CBC Hgb 13.1 L, 11Vedolizumab level 10.4, Ab 0. 12BUN, CR, AST and ALT nl, CBC WBC 11.05 H, Hgb 13.0 L, 131) There is a long segment of wall thickening involving the distal/terminal ileum consistent with the reported Hx of Crohn's disease. Ni significant surrounding inflammation is seen. 2) There is no bowel obsturction on today's examination. Enteric contrast reaches the cecum. 3) There is no clear CT evidence of acute diverticulitis. 5) Cholelithiasis. 6) Additional findings as above. 14body of report findings mildly enlarged heart, small pericardial effuision, emphysema at lung bases, tiny hiatal hernia, numerous calcified gallstones, moderate to advanced athersolerosis , modeate to advanced diverticulosis, mild to moderate fecal retention thoughout colon, segment of ileum thickening is over 20 cm---no stricture, prostate moderately enlarged and heterogenous, bladder distendd and wall thickened suggestive of outlet obstruction, osteopenia 15CBC WBC 12.27 H, BUN 16 nl, CR 0.97 nl, AST 22 nl, ALT 46 nl. 16[facility]BO Initial WBC 20.2, CMP glux 173, TB 1.4, lipase normal. DC on taper of prednisone 17CT a/p during hospitalization emphysema, gallstones with mild distension, moderate plaque abd aorta, colon diverticulosis, mid small bowel moderately dilated and fluid filled with small associated asdites and mesenteric stranding, transition point in distal ileum with asymmetric wall thickening, c/w SBO likely from crohns with possible stricture or active inflammation. 18Impression: Tip of nasogastric tube within the distal body of the stomach. 19BUN, Cr, AST, ALT all normal. CBC WBC 12.85 H 20BUN nl, CR nl, AST nl, ALT nl, CBC 21No acute rib fractures. No pneumothorax. Cholelithiasis. 22BUN 10 nl, AST 24 nl, ALT 29 nl, CBC nl, 23BUN 12 nl, Cr 0.91 nl, AST nl, ALT nl, CBC nl, 24CBC, BUN, Cr, AST, ALT normal 25[facility] labs PSA nl, FT4 nl, TSH nl, CMP Gluc 121 H, AST 31, ALT 39, Trigs nl chol nl, Hgb a1c 6.3 H, CBC nl, Ft3 nl 26BUN 12, CR 1.02, AST nl, ALT nl, CBC nl. 27Impression: AP Spine L1-L4 is 1.322 g/cm2 with T score of 0.8. Femur Neck Left is 0.942 g/cm2 with T score of -1.0. Femur Neck Right is 0.980 g/cm2 with T score of -0.7. Femur Total Left is 1.104 g/cm2 with T score 0.0. Femur TOtal Right is 1.125 g/cm2 with T score of 0.2. Z score of 0.3, this patients BMD is considered within normal limits. 28CBC nl, BUN nl, CR nl, AST nl, ALT nl. 29complete abd us hepatomegaly, fatty liver, gallstones, 30CBC BUN, CR nl, AST 39 H (upper limit 37) , ALT 56 nl 31BUN nl, Cr nl, AST 52 H, ALT 66 nl, CBC normal. 32No acute bony abnormality is identified 33ED&C 34Preparation of the colon was fiar. NOn-bleeding internal hermorrhoids Diverticulosis in the sigmoid colon. Aphtha in the distal ileum No specimens collected. 35right eye 361. No acute cardiopulmonary findings. 2. Emphysema. 37Moderate reduction in FEV1 with obstruction present. However, FEV1 has improved since last spirometry in December of 2018 38No acute osseous injury. 39chronic bronchiectasis with mucoid impaction/asthma. EDAC (endoscopic dynamic airway collapse) involving the right tracheobronchial tree. 401) Mild mucosal hyperenchancement and asymmetric wall thickening involving the distal 50 cm of the ileum and extending to the ileocecal valve. Therefore, this is consistent with mild acute or chronicCrohn's disease. No fistula or abscess identified. 2) No additional bowel wall thickening identified. 3) Partial fusion of the B/L sacroiliac joints. 4) Emphysema. 5) Colonic diverticulosis. 41Left lower lobe lung: Atypical cells present, consistent with reactive cellular process; abundant acute inflammatory cells present. 42No malignant cells. Acute inflammation present. Pulmonary macrophages, respiratory epitherlial cells, and squamous cells present. 43Tolerated well. All specimens collected were benign. 44Final Diagnosis Lung right bronchial washings 1. Benign bronchial and squamous epithelium 2. No malignant cells seen Lung Left Bronchial washings 1. Benign bronchial epithelium 2. No malignant cells seen 45Diverticulosis in the sigmoid colon. Non-bleeding internal hemorrhoids. Stricture in the terminal ileum. Aphtha in the terminal ileum. No specimens collected. 46Diverticulosis in the sigmoid colon. non bleeding internal hemorrhoids stricture in the terminal ileum aphtha in the terminal ileum no specimens collected discharge paatient to home (ambulatory) continue present medications return to GI office as previously scheduled 47No evidence of clinically significant sleep apnea/hypopnea. Patient should continue on nocturnal oxygen. There is no need for CPAP at this time. 48left leg laceration 49Does not have significant acid reflux with low correlation between reflux episdoes and his cough symptoms. 50Z-line regular, 49 cm from the incisors. Normal stomach. Normal examined duodenum. The TigglyBO pH capsule was deployed. No specimens collected. 511. Emphysema with moderate bronchial wall thickening suggesting bronchitis. Addiotionally, there are scattered subsegmental groundglass and linear consolidative opacities of the lung bases suggestingareas of atelectasis with pneumonitis thought to be less likely. 2. No lobar airspace consolidations. 3. No pathologic adenopathy. 4. Hepatic steatosis. 52Chronic change. No acute process. 531. Technically limited study despite use of definity ultrasound contrast. 2. Normal LV size. Normal LV function. LVEF 55-60%. 3. RV not well visualized. Grossly normal size and function. 4. No significant valvular pathology. 5. Compared with prior study on 03/21/2017: current study more limited but no significant changes. 54Normal intracardiac filling pressure. Preserved cardiac output. Normal pulmonary artery pressures & pulmonary vascular resistance. No evidence of hemodynamically significant left to right intracardiac shunt. Return to PCU for continued monitoring. Consider TTE or REJI with bubble study if concern for significant right to left shunt persists. 55Conclusions: Normal left ventricular size with hyperdynamic function. No significant valvula abnormalities. No significant change from prior study on 07/12/2007. 56Limited views obtained. Injection of contrast documented no interatrial shunt. 57Chronic obstructive pulmonary disease with exacerbation. Tussive syncope. Emphysema. Recent bilateral pneumonia. Obstructive sleep apnea-untreated. 58Normal oral-pharyngeal and esophageal swallow function. The following is recommended: 1. Regular diet as tolerated. 2 Consideration of f/u with referring physician as needed if symptoms persist. 59ABD aorta WNL. Mild stenosis of the infrarenal aorta. Mild stenosis of the left common femoral artery. 60Multilevel degenerative changes. Mild retrolisthesis of L5-S1. Abnormal marrow signal changes in the left posterior aspect of the T11 vertebral body extending into the pedicle & in nino right posterior aspect of the T11 vertebral body. These could represent atypical hemangiomas. Primary or secondary marrow malignancy is not ruled out. Further assessment is suggested with an enhanced MRI of thethoracic spine. 61Moderate multilevel degenerative intervertebral this changes with bulging disc components throughout. Broad-based disc herniation L2-L3 with narrowing of the neuroforamina bilaterally. Bulging discs at L3-L4 & L4-L5. Mild to moderate multifactorial narrowing of the spinal canal at L4-L5 with mild narrowing of the neuroforamina bilaterally. 62path polyp tubular adenoma, ileum inflammation and cellular atypia most likely reactive but f/u recommended. 63exam to TI, ulceration and stricture on ileal side of valve could not pass scope through. sigmoid diverticulosis, cecal polyp cold bx removed. 64Irregularity of the bilateral sacroiliac joints. The findings raise the possibility of sacroilitis,particularly given the history of crohn's disease. Osteoarthritis could appear similar but is considered somewhat less likely. 65Moderate DDD at L5-S1 with mild DDD at the remainder of the lumbar levels. No acute lumbar spine fx or subluation. 66A slightly echogenic and coarse echotexture w/in the liver. Findings favor a mild fatty liver change. Small amt of sludge w/in the gallbladder. No gallstones. 67No evidence of actue fracture. 68pt was hospitalized between 03/15- Results Laboratory List Name Date Complete Blood Count (CBC) 01/25/24 Ferritin (FERRITIN) 01/25/24 Hepatitis B Surface Antigen (HEP B SURF AG) 01/25/24 Iron Profile (IRON PROFILE) 01/25/24 Most recent to oldest [Reference Range]: 1 MPV [9.0-12.2 fL] 10.5 fL 1 (01/25/24 9:59 AM) RDW [11.5-14.2 %] 16.9 % *HI* (01/25/24 9:59 AM) Iron [50-158 ug/dL] 64 ug/dL (01/25/24 9:59 AM) Ferritin [17.9-464.0 ng/mL] 535.4 ng/mL 2 *HI* (01/25/24 9:59 AM) HBsAg [NR] NONREACTIVE *Unknown* (01/25/24 9:59 AM) Hct [39-48 %] 43.3 % (01/25/24 9:59 AM) Hgb [13.0-17.0 g/dL] 13.7 g/dL (01/25/24 9:59 AM) MCH [28-33 pg] 28.4 pg (01/25/24 9:59 AM) MCHC [32-36 g/dL] 31.6 g/dL *LOW* (01/25/24 9:59 AM) MCV [81-96 fL] 89.8 fL (01/25/24 9:59 AM) Plts [150-350 K/uL] 347 K/uL (01/25/24 9:59 AM) RBC [4.40-5.60 M/uL] 4.82 M/uL (01/25/24 9:59 AM) Fe Sat [14-50 %] 26 % (01/25/24 9:59 AM) Total IBC [250-400 ug/dL] 245 ug/dL *LOW* (01/25/24 9:59 AM) Transferrin [200-360 mg/dL] 208 mg/dL (01/25/24 9:59 AM) WBC [4.0-10.4 K/uL] 6.71 K/uL (01/25/24 9:59 AM) 1Result Comment: Testing Performed By: Dept of Pathology [facility] [address], [address] [place] [address] 2Result Comment: [facility]formed [facility], [address] [place] [address] Social History Social History Type Response Smoking Status Former Smoker, quit > 1 yr Sex Male Patient Care team information Care Team Personnel Name: MD Sergio, Taiwo Bautista Position: Physician - Gastro Member Role: Lifetime Relationship Address: Address: [address] [place] [id number] [place] Name: MD Joey, Jocelyne Position: Physician - Family Med Member Role: Primary Care Provider Address: Address: [address] [facility] [address] [place] [id number] [place] Care Team Related Persons Name: ROBERT TORRES Address: home [address] [place] [phone]
[2024-03-06] MEDS: LEVOTHYROXINE SODIUM 112 MCG TABLET PO SCH (05:34)
[2024-03-06 07:22] LABS: Basophils # (auto) 0.01 K/uL (0.00-0.20); Basophils % (auto) 0.1 %; Hematocrit (blood only) 42.1 % (42.0-52.0); Hemoglobin 13.4 g/dl (14.0-18.0); Immature Granulocytes # (auto) 0.02 K/uL (0.01-0.20); Immature Granulocytes % (auto) 0.3 %; Lymphocytes # (auto) 0.67 K/uL (1.20-3.40); Lymphocytes % (auto) 9.7 %; Mean Corpuscular Hemoglobin 28.5 pg (25.0-34.0); Mean Corpuscular Hgb Conc 31.8 g/dL (32.0-36.0); Mean Corpuscular Volume 89.4 fL (80.0-100.0); Mean Platelet Volume 10.5 fL (9.4-12.4); Monocytes # (auto) 0.61 K/uL (0.11-0.59); Monocytes % (auto) 8.9 %; Neutrophils # (auto) 5.58 K/uL (1.40-6.50); Platelet Count 329 K/uL (130-400); RDW Coefficient of Variation 15.3 % (11.5-14.5); RDW Standard Deviation 50.4 fL (36.4-46.3); Red Blood Count 4.71 M/uL (4.70-6.10); White Blood Count 6.89 K/ul (4.8-10.8)
[2024-03-06] MEDS: KETOROLAC TROMETHAMINE 15 MG/ML VIAL IV PRN (07:29)
[2024-03-06 07:38] LABS: Albumin Globulin Ratio 1.3 (0.9-2); Albumin Level 3.8 gm/dl (3.4-5.0); BUN Creatinine Ratio 12.2 (10-20); Bilirubin,Total 1.1 mg/dl (0.2-1.0); Calcium 8.5 mg/dl (8.6-10.3); Creatinine Clr Calc Pharmacy 81.8 ml/min; Est GFR (African American) 88.3 ml/min; Est GFR (Non-African American) 76.2 ml/min; Globulin 2.9 gm/dl (2.5-4.0); Magnesium 2.1 mg/dl (1.7-2.4); Potassium 4.3 mmol/L (3.5-5.1); Total Protein 6.7 gm/dl (6.0-8.3)
--- NOTE | 2024-03-06 07:59 | Surgery Progress Note ---
Date of Service March 06, 2024 Assessment & Plan (1) RUQ abdominal pain: Plan: Pt here w/ RUQ pain and US with equivocal findings of acute cholecystitis WBC 6.8, LFTs within normal limits outside of a slight increase in tb 1.1 (0.9). vitals stable, afebrile Abdomen soft, some pain noted in RUQ HIDA scan ordered for today, if + will add on to the OR schedule for lap david If negative can trial diet advancement as above. pt with left lower rib/upper abd pain/discomfort. HIDA negative. wbc normal/normal neutrophils. no evidence of acute cholecystitis. can advance diet. suspect pain may be pulm in nature given the location of symptoms and abnormality on his chest CT. will s/o. call if any questions. Admission and Anticipated Discharge Date Admission Date: March 05, 2024 Subjective Pt reports some ongoing abdominal pain this AM. No nausea/vomiting. Physical Exam Physical Exam: awake/alert, no distress Respiratory: normal respiratory effort Gastrointestinal (Abdomen): Percussion/Palpation: + abdomen tender (discomfort to palpation RUQ region) and abdomen soft Results & Data Vital Signs (Past 12 Hours) Vital Signs Temp Pulse Resp BP Pulse Ox O2 Del Method 03/05/24 20:50 Room Air 03/05/24 20:49 97.9 F 60 16 142/77 H 94 Room Air PG Care Time/CCT Total # of Minutes Spent Total Time Spent with Patient: Total time spent is greater than 50% in coordination of care (as documented) at patient's floor/unit and/or counseling patient: Coding Level of Care Code 82131 SUB INP/OBS CARE 2/35MIN Diagnoses RUQ abdominal pain R10.11
--- NOTE | 2024-03-06 08:40 | Nuclear Medicine Report ---
NUCLEAR MEDICINE HEPATOBILIARY SCAN HISTORY: Abnormal ultrasound. Right upper quadrant pain. COMPARISON: Abdominal ultrasound 03/05/2024. TECHNIQUE: Immediately following the intravenous administration of 5.3 mCi Tc-99m Choletec, dynamic a nterior abdominal imaging was performed. FINDINGS: Uniform hepatic tracer accumulation is shown. Prompt intrahepatic biliary excretion is seen. The gall bladder, common bile duct, and small bowel are all visualized by 15 minutes. This appearance represen ts the normal sequence of biliary excretion. IMPRESSION: 1. No evidence for cystic duct obstruction. ACT 112: Negative or not required by law. Electronically signed by: Anthony Armenta M.D. 03/06/2024 8:39 AM
[2024-03-06] MEDS: FERROUS SULFATE 325 MG TAB PO SCH (09:11)
[2024-03-06] MEDS: FINASTERIDE 5 MG TAB PO SCH (09:12)
[2024-03-06] MEDS: LOPERAMIDE HCL 2 MG CAP PO SCH (09:12)
[2024-03-06] MEDS: MESALAMINE 0.375 GM PO SCH (09:12)
[2024-03-06] MEDS: PANTOprazole 40 MG TAB PO SCH (09:13)
[2024-03-06] MEDS: POTASSIUM CHLORIDE 10 MEQ TABCR PO SCH (09:14)
[2024-03-06] MEDS: FLUTICASONE/VILANTEROL 100/25MCG 14 PUFFS/INHALER INH SCH (09:14)
[2024-03-06] MEDS: HYDROmorphone INJ 0.5 MG/0.5 ML SYR IV PRN (10:00)
--- NOTE | 2024-03-06 18:21 | Discharge Summary ---
Discharge Summary Date of Service March 06, 2024 Principal Dx & Hospital Course #1 = Principal Diagnosis (1) Acute cholecystitis: Patient presented with right lower rib pain/right upper quadrant abdominal pain x 4 days On admission, no leukocytosis, afebrile, LFTs within normal limits Gallbladder ultrasound on admission revealed acute cholecystitis HIDA scan negative General surgery consulted and feels given the HIDA scan, no surgical interventions required at this time Advance to regular diet, well-tolerated Receive Zosyn while inpatient Discharged on Augmentin x 5 days (2) Pleuritic chest pain: Right lower chest wall pain with deep breaths; patient also endorses productive cough (yellow sputum production) Troponin WNL Chest CTA revealed no pulmonary embolism, but noted a small focal wedge-shaped density (atelectasis v. inflammatory/infectious process) Antibiotics as noted above for potential pneumonia (3) Crohns disease: Continue mesalamine Plan CODE STATUS: Full code Notes For Next Care Provider Medication Changes From Visit Augmentin x 5 days to cover possible gallbladder infection/pneumonia Admission HPI Per Admitting Provider José Luis is a 73-year-old male with PMH of Crohn's disease, ADELAIDA, severe persistent asthma, HTN, hypothyroidism, diastolic heart failure, COPD, SBO, and BPH. He presented for right lower rib pain x 4 days. The patient notes that he develope d some constipation on Thursday 03/01, shortly after doing some yard work (mowing grass, pulling weeds). He denies straining himself, or injury/trauma to the chest wall, abdomen, or pelvis. The pain is located in his RUQ abdomen right below his last rib. Characterizes the pain as sharp, stabbing, intermittent pain; rated 8/10 at worst, 6/10 after receiving pain medicine in the ED. He has not been taking any additional medications at home for the pain. No radiation to the back, chest wall, or lower abdomen. Pain is worse with deep breaths and certain movements. Hx of known gallstones, but no prior issues with his gallbladder. No PMH of DVT/PE. Patient had 1 similar episode around 4 months ago in his RUQ, but this pain went away. The pain is not increased when he has fatty or greasy meals; for instance, he had [employer] a couple nights ago and this did not exacerbate the pain. No recent change in diet. No prior abdominal surgeries. Patient took all of his regular morning medications today; only recent change in medication was that he was switched from Entyvio to Skyrizi due to dark tarry stools. Patient is not currently on any blood thinners. He reports that he is still passing gas; last BM was this morning on 03/05. Patient is hypertensive at 161/78 at time of admission; vitals otherwise stable. ED course: Zosyn 4.5 g IV Acetaminophen 1000 mg IV Toradol 15 mg IV ROS: Patient endorses R lower rib pain with deep breaths, productive cough (yellow sputum), or constipation. Patient denies fever, chills, night-sweats, dizziness, lightheadedness, ARECHIGA, chest pain, chest palpitations, hemoptysis, lower abd pain, N/V/D, changes in urinary/bowel habits, recent dark/tarry stools, bright red blood in the urine/stool, saddle anesthesia, lower back pain, or N/T/pain in the arms or legs. Admission Exam Per Admitting Provider General: no acute distress; pleasant affect; non-toxic appearing; well-no urished; cooperative; SpO2 95% on RA HEENT: normocephalic, atraumatic; no scleral icterus; PERRLA; moist mucus membrane; vision and hearing grossly intact Neck: supple; no lymphadenopathy; trachea midline Skin: warm, dry without signs of tenting; no cyanosis; no rashes, bruising, lesions, or erythema noted CV: chest wall NTP; RRR; S1/S2 normal; no murmurs/rubs/gallops; pulses intact and symmetric at radial, DP, and PT Lungs: no acute respiratory distress; symmetrical chest wall expansion; clear breath sounds across all lung [place] w/o adventitious sounds; no wheezing ABD: Soft; RUQ and right flank are TTP; positive Sexton sign; BS present; no rebound/guarding; mild distention secondary to body habitus; no rashes erythema or bruising on the abdomen or flanks MSK: no tics or fasciculations; no edema noted in the LEs b/l, nonerythematous Neuro: A&Ox3; normal mood and affect; fluent speech; no focal deficits; sensation grossly intact in the LEs b/l Discharge Exam General: No acute distress, nondiaphoretic, well-developed, well-nourished. Skin: The skin was without rashes, erythema, edema, or bruising. Cardiac: Regular rate and rhythm without murmurs gallops or rubs. Pulm: Clear to auscultation bilaterally without wheezes, rales or rhonchi. No retractions or accessory muscle use. Abdominal: Minor RUQ tenderness to palpation. Positive bowel sounds x 4. Soft, nondistended, without masses or organomegaly. No guarding or rebound tenderness. Neuro: A&O x3. No focal neurological deficits. Updated Medication List Medication Instructions Recorded Confirmed Type ascorbic acid (vitamin C) 500 mg 500 mg PO QAM 09/01/18 03/05/24 History tablet (Vitamin C) cholecalciferol (vitamin D3) 25 1,000 unit PO QAM 09/01/18 03/05/24 History mcg (1,000 unit) chewable tablet (Vitamin D3) colestipol 1 gram tablet 1 g PO BID 09/01/18 03/05/24 History levothyroxine 112 mcg tablet 112 mcg PO QAM 09/01/18 03/05/24 History loperamide 2 mg capsule (Imodium 2 mg PO QAM 09/01/18 03/05/24 History A-D) multivitamin 1 tab PO QAM 09/01/18 03/05/24 History clotrimazole-betamethasone 1 1 appln topical BID PRN Rash 04/30/19 03/05/24 History %-0.05 % topical cream mesalamine 0.375 gram 1.5 g PO QAM 04/30/19 03/05/24 History capsule,extended release 24 hr potassium chloride 10 mEq 10 meq PO QAM 09/10/22 03/05/24 History capsule,extended release ferrous sulfate 325 mg (65 mg 325 mg PO QAM 02/03/23 03/05/24 History iron) tablet omeprazole 20 mg capsule,delayed 20 mg PO QAM 02/03/23 03/05/24 History release rosuvastatin 10 mg tablet (Crestor) 10 mg PO HS 02/03/23 03/05/24 History budesonide-formoterol HFA 160 2 inh inhalation BID 08/15/23 03/05/24 History mcg-4.5 mcg/actuation aerosol inhaler (Symbicort) finasteride 5 mg tablet 5 mg PO QAM 08/15/23 03/05/24 History trazodone 150 mg tablet 150 mg PO HS 08/15/23 03/05/24 History benralizumab 30 mg/mL subcutaneous See Rx Instructions .Route 08/22/23 03/05/24 Rx syringe (Fasenra) .COMPLEX #1 ea tiotropium bromide 2.5 2 inh inhalation QAM #12 grams 10/17/23 03/05/24 Rx mcg/actuation mist for inhalation (Spiriva Respimat) albuterol sulfate 90 mcg/actuation 1 puff inhalation Q6H PRN 11/09/23 03/05/24 Rx aerosol inhaler (ProAir HFA) Shortness Of Breath #8.5 grams tamsulosin 0.4 mg capsule (Flomax) 0.8 mg (2 x 0.4 mg) PO HS BPH #180 02/20/24 03/05/24 Rx caps Skyrizi Inj 1 dose INJ DIRECTED 03/05/24 03/05/24 History amoxicillin 875 mg-potassium 1 tab PO BID #10 tabs 03/06/24 Rx clavulanate 125 mg tablet Hospital Stay Data Consultations 03/05/24 14:46 Consult General Surgery Stat 03/05/24 14:52 ED Decision to Admit Stat Diagnostic Imagining Performed 03/05/24 10:20 CT angio chest PE protocol Stat 03/05/24 10:26 US gallbladder Stat Pending Results Patient Have Any Pending Studies at Discharge: No Discharge Instructions Given to Patient (Per Discharging Provider) Clifton Burgos were admitted to the hospital due to right upper quadrant abdominal pain. The ultrasound of your gallbladder revealed acute cholecystitis (inflammation of your gallbladder), however the HIDA scan was normal, therefore no surgical intervention was required. The pain you described in your right lower chest wall with deep breaths is most likely due to an inflammatory process. You had a CTA of your chest which revealed no pulmonary embolism (blood clot in your lungs). The chest CTA revealed a small focal wedge-shaped density, which is most likely inflammatory, however could also be infectious. To cover both your gallbladder and your lung from developing infection, you are being discharged on oral antibiotics. Upon discharge from the hospital: * Please take Augmentin (oral antibiotic) twice daily for 5 days. It is important to complete this course of antibiotics even if you feel better. [facility] * Advance your diet as tolerated. * Continue taking all other medications as prescribed. Please return to the hospital if you experience any of the following: Shortness of breath, difficulty breathing, chest pain, fast heart rate (>100 beats per minute), chest palpitations, severe abdominal pain, severe nausea or vomiting, lightheadedness, dizziness, or passing out. It was a pleasure taking care of you while you were in the hospital, Erika Russell PA-C Total Time Total Time Spent Total Time Spent (In Minutes): Greater than 30 minutes spent completing this discharge process including direct patient care, medication reconciliation, documentation, review of labs and images, and coordination of care. Coding Level of Care Code 97620 INP/OBS DISCH >30 MIN Diagnoses Acute cholecystitis K81.0 Pleuritic chest pain R07.81 Crohns disease K50.90
--- NOTE | 2024-03-08 05:38 | Electrocardiogram Report ---
Test Reason : Blood Pressure : / mmHG Vent. Rate : 069 BPM Atrial Rate : 069 BPM P-R Int : 152 ms QRS Dur : 090 ms QT Int : 410 ms P-R-T Axes : 078 062 063 degrees QTc Int : 439 ms Normal sinus rhythm Nonspecific ST abnormality When compared with ECG of 18-NOV-2023 18:39, No significant change was found Confirmed by Bryce Mcmahon ([id number]) on 03/08/2024 5:37:41 AM Referred By: REFERRED SELF Confirmed By:Bryce Mcmahon
== END 2024-03-06 16:16 | disposition home or self-care (01) | DRG 445 ==
LOC: ED 10:11 → EDINP 15:32 → SUATTDRO 15:32 → INTOOBSV 15:32 → 3N 16:35

== ENCOUNTER 2024-08-14 12:23 | Inpatient (IN) ==
[2024-08-14] MEDS: ONDANSETRON INJ 2 MG/ML 2 ML VIAL IV STA (13:15)
[2024-08-14 13:21] LABS: Hematocrit (blood only) 49.1 % (42.0-52.0); Hemoglobin 15.5 g/dl (14.0-18.0); Mean Corpuscular Hgb Conc 31.6 g/dL (32.0-36.0); Mean Corpuscular Volume 88.8 fL (80.0-100.0); Mean Platelet Volume 10.3 fL (9.4-12.4); Platelet Count 521 K/uL (130-400); RDW Coefficient of Variation 16.5 % (11.5-14.5); RDW Standard Deviation 53.2 fL (36.4-46.3); Red Blood Count 5.53 M/uL (4.70-6.10); White Blood Count 22.74 K/ul (4.8-10.8)
[2024-08-14 13:37] LABS: Basophils # (auto) 0.07 K/uL (0.00-0.20); Basophils % (auto) 0.3 %; Eosinophils # (auto) 0.01 K/uL (0.00-0.50); Immature Granulocytes % (auto) 0.4 %; Lymphocytes # (auto) 0.47 K/uL (1.20-3.40); Lymphocytes % (auto) 2.1 %; Monocytes # (auto) 1.56 K/uL (0.11-0.59); Monocytes % (auto) 6.9 %; Neutrophils # (auto) 20.53 K/uL (1.40-6.50); Neutrophils % (auto) 90.3 %; Polychromasia 1+
[2024-08-14 13:41] LABS: Alanine Aminotransferase 21 U/L (7-52); Albumin Globulin Ratio 1.2 (0.9-2); Albumin Level 4.3 gm/dl (3.4-5.0); Alkaline Phosphatase 105 U/L (34-104); Anion Gap 12 (3-11); Aspartate Aminotransferase 17 U/L (13-39); BUN Creatinine Ratio 11.5 (10-20); Blood Urea Nitrogen 15 mg/dl (6-23); Calcium 10.2 mg/dl (8.6-10.3); Carbon Dioxide 25 mmol/L (21-32); Chloride 102 mmol/L (98-107); Globulin 3.7 gm/dl (2.5-4.0); Glucose 163 mg/dl (70-99(Fasting)); Lipase 35 U/L (11-82); Potassium 5.2 mmol/L (3.5-5.1); Sodium 139 mmol/L (136-145)
[2024-08-14 13:45] LABS: Troponin I High Sensitivity 11.9 pg/ml (0-20)
[2024-08-14] MEDS: OPTIRAY 320 100ml IV ONE (14:01)
[2024-08-14] MEDS: SODIUM CHLORIDE 0.9% 1,000 ML IV ONE ×2 (14:19→15:12)
--- NOTE | 2024-08-14 14:26 | CT Scan Report ---
CT OF THE ABDOMEN AND PELVIS WITH CONTRAST CLINICAL HISTORY: Nausea, vomiting and diarrhea. Crohn's disease. COMPARISON STUDY: CT T enterography October 24, 2023. Right upper quadrant ultrasound March 05, 2024. TECHNIQUE: Following IV administration of 94 mL of Optiray, axial images of the abdomen and pelvis we re obtained from the lung bases to the proximal femurs. Images were reviewed in the axial, sagittal, and coronal planes. IV contrast was administered without complication. Automated exposure control wa s utilized for the study. A dose lowering technique was utilized adhering to the principles of ALARA . CT DOSE: 1301.84 mGy.cm FINDINGS: Emphysema is incidentally noted within the visualized lung bases. There is no pneumatosis, free air or portal venous gas. Multiple gallstones within the gallbladder are present. The gallbladde r is mildly distended without pericholecystic infiltration. There is no biliary or pancreatic ductal dilatation. There are no hepatic lesions. Spleen, adrenal glands and kidneys are normal. There is no hydronephrosis. There is no evidence for a bowel obstruction. No fluid collections are present. There is sigmoid diverticulosis. There is mild stranding adjacent to the mid sigmoid colon. There is no fr ee air or abscess. The colon and small bowel are mildly fluid-filled. Multifocal circumferential wall thickening within the distal ileum is similar to prior exam. There is mild mesenteric hyperemia. [place] or vasculature is patent. There is no lymphadenopathy. The appendix is normal. IMPRESSION: 1. Sigmoid diverticulosis. Minimal stranding adjacent to the mid sigmoid colon suggests mild acute di verticulitis. No free air or abscess. 2. Fluid-filled small and large bowel. This may indicate a diarrheal state. 3. Multifocal wall thickening within the terminal ileum with mild mesenteric hyperemia. Findings alondra lar to prior study. The findings are consistent with inflammatory bowel disease. No bowel obstruction . No abscess. 4. Cholelithiasis with mild gallbladder distention. No definite pericholecystic inflammation. If righ t upper quadrant pain, ultrasound is recommended to assess for acute cholecystitis. ACT 112: Negative or not required by law. Electronically signed by: Carl Wu M.D. 08/14/2024 2:25 PM
[2024-08-14 14:40] LABS: Magnesium 1.8 mg/dl (1.7-2.4)
--- NOTE | 2024-08-14 14:57 | Emergency Department Note ---
Impression & Plan Diverticulitis, Leukocytosis, Elevated lactic acid level, Cholelithiasis, Nausea, vomiting, and diarrhea ED Provider Note HISTORY OF PRESENT ILLNESS: Patient is a 73-year-old male presenting with dizziness, weakness, vomiting and diarrhea. Patient reports he has been having diarrhea for the last month. He reports in the last few days he has been having multiple episodes of vomiting. He describes having about 6 episodes of diarrhea a day. Describes it as watery in nature. Denies any recent antibiotic use. Denies any recent fevers. Reports that today he felt very weak and felt very lightheaded when getting up and standing. He went to work but was too weak to complete any tasks and they had to call for help. Patient denies any chest pain or shortness of breath. Denies any dysuria or hematuria. He does report some diffuse abdominal pain. Patient denies any recent antibiotic use. ROS: as above PHYSICAL EXAM: Constitutional: Patient appears in no acute distress. HENT: Head: Normocephalic and atraumatic. Eyes: EOMI, PERRL Mouth/Throat: Mucous membranes dry. Neck: Trachea midline. Neck supple. Cardiovascular: RRR, No murmurs, rubs or gallops. Intact distal pulses. Pulmonary/Chest: No respiratory distress. Breath sounds clear and equal bilaterally. No wheezes or rales. Abdominal: Abdomen soft, no rebound or guarding. Generalized TTP Musculoskeletal: No edema, tenderness or deformity noted. Skin: Warm and dry. No rash, erythema, pallor or cyanosis Psychiatric: Appropriate mood and affect for situation. Neurological: Alert and keenly responsive. CN II-XII grossly intact, moving all extremities equally and fully. MDM: - Vitals signs showed hypertension and tachycardia. - History obtained via patient. History as above. - Chronic conditions affecting care: Crohn's disease; HTN; hypothyroidism; CHF - Differential diagnoses include, but are not limited to: diverticulitis; cholecystitis; small bowel obstruction; ischemic colitis; viral syndrome; C diff - Order placed for continuous cardiac monitoring. At this time, monitor showed rate of 75 bpm with normal sinus rhythm, per my interpretation. - External medical records reviewed. Discharge summary dated 03/06/2024 was reviewed. Patient was admitted that time for acute cholecystitis. He was treated with antibiotics but no surgical interventions were performed. - EKG interpreted by myself showed normal sinus rhythm. Rate tachycardic at 109 bpm. QT 364. No acute ischemic changes. - Laboratory workup interpreted by myself showed leukocytosis (WBC 22.74) with neutrophilic predominance; elevated lactate (3.9); hyperkalemia (K 5.2); elevated anion gap (12) with only slightly elevated glucose (163); normal troponin; normal lipase; elevated procalcitonin (0.51) - Viral respiratory panel negative - C diff negative. Stool PCR added to workup - Blood cultures obtained. - CT abdomen/pelvis with IV contrast showed minimal stranding adjacent to the mid sigmoid colon suggestive of mild acute diverticulitis. No free air or abscess. There have multifocal wall thickening within the terminal ileum with mild mesenteric hyperemia similar to previous study and consistent with inflammatory bowel disease. Noted have cholelithiasis with mild gallbladder wall distention. - Patient given 1L NS and 4 mg IV zofran. On reassessment, he reports his nausea is improved. Patient given additional 1 L normal saline. - IV zosyn ordered. - Sepsis fluid volume based on ideal body weight is 2,427.00 mL. Patient was given a total of 2 L normal saline in the ER. Given national IV fluid shortage, p.o. fluids was encouraged and patient tolerated multiple glasses of water. - Discussion was had with rn case management about patient's case and need for admission - Hospitalist, Dr. Morris, consulted for admission - [facility] ASSESSMENT AND PLAN: Diagnosis: Diverticulitis; leukocytosis; elevated lactic acid; cholelithiasis; nausea, vomiting and diarrhea Plan: admit Past Med/Surg History Problem List (Updated 08/14/24 @ 15:58 by Olga Munoz MD) Nausea, vomiting, and diarrhea (Acute) Cholelithiasis (Acute) Elevated lactic acid level (Acute) Leukocytosis (Acute) Diverticulitis (Acute) Nausea and vomiting (Acute) History of Crohn's disease (Acute) Diarrhea (Acute) Acute dehydration (Acute) RUQ abdominal pain (Acute) Pleuritic chest pain (Acute) Crohns disease Acute cholecystitis Edema of left lower extremity Acute hypoxemic respiratory failure Small bowel obstruction 08/2022 - treated at [facility] with NG Tube - no surgery. Screening PSA (prostate specific antigen) Bibasilar crackles BPH loc w urin obs/LUTS Nocturia Hypoxia (Acute) Acute respiratory distress Bronchiectasis (Acute) Sinus tachycardia seen on telemetry monitor S/P bronchoscopy with bronchoalveolar lavage Injury of left foot (Acute) Influenza A Hyponatremia Fall from ladder (Acute) Dyspnea on exertion COPD (chronic obstructive pulmonary disease) (Acute) Eosinophilia (Chronic) ADELAIDA (obstructive sleep apnea) pt denies Crohn's disease in remission currently having a flare- following with Dr Schmitz Pneumonia hx ~2017, where his breathing from there had worsened and [facility] currently. Severe persistent asthma History of cardiac catheterization (Acute) 03/2017 @ [facility] with Dr. Teague--NO stents Hypertension Hypothyroid Diastolic heart failure Medical History Right-sided chest pain History of esophageal dilatation (~2002) History of melanoma COPD (chronic obstructive pulmonary disease) inhaler/nebulizer prn Surgical History History of esophagogastroduodenoscopy (EGD) (~2002) Hx of vasectomy History of melanoma excision above right eye History of tooth extraction all lower teeth/partial upper History of tonsillectomy History of bilateral cataract extraction History of bronchoscopy multiple History of colonoscopy with polypectomy Family History Other Hypertension No family history of adverse response to anesthesia No significant family history Denies family history of Myocardial infarction Stroke Social History Smoking Status: Former smoker Tobacco Type: Cigarettes Age Started Using Tobacco: 17; Age Quit Using Tobacco: 50; Cigarettes Per Day: stopped 25 years ago; Second Hand Exposure: No; Do You Dip or Chew Tobacco: No; Hx Alcohol Use: No Hx Substance Use: No Preferred Language: Thai Communication Ability: Effective Visual Impairment: No Limitations Hearing Ability: Normal Veneer Drier Required: No Beliefs That Will Affect Care: None Current Living Situation: Spouse and Family Current Living Situation Comment: Lives with and stepson Feels Safe at Home: Yes Assistive Devices: None Allergies Allergies Allergy/AdvReac Type Severity Reaction Status Date / Time No Known Allergies Allergy Verified 04/11/24 15:26 Home Meds Home Medications Medication Instructions Recorded Confirmed ascorbic acid (vitamin C) 500 mg 500 mg PO QAM 09/01/18 06/29/24 tablet (Vitamin C) cholecalciferol (vitamin D3) 25 1,000 unit PO QAM 09/01/18 06/29/24 mcg (1,000 unit) chewable tablet (Vitamin D3) colestipol 1 gram tablet 1 g PO BID 09/01/18 06/29/24 levothyroxine 112 mcg tablet 112 mcg PO QAM 09/01/18 06/29/24 loperamide 2 mg capsule (Imodium 2 mg PO QAM 09/01/18 06/29/24 A-D) multivitamin 1 tab PO QAM 09/01/18 06/29/24 clotrimazole-betamethasone 1 1 appln topical BID PRN Rash 04/30/19 06/29/24 %-0.05 % topical cream mesalamine 0.375 gram 1.5 g PO QAM 04/30/19 06/29/24 capsule,extended release 24 hr potassium chloride 10 mEq 10 meq PO QAM 09/10/22 06/29/24 capsule,extended release omeprazole 20 mg capsule,delayed 20 mg PO QAM 02/03/23 06/29/24 release rosuvastatin 10 mg tablet (Crestor) 10 mg PO HS 02/03/23 06/29/24 finasteride 5 mg tablet 5 mg PO QAM 08/15/23 06/29/24 trazodone 150 mg tablet 150 mg PO HS 08/15/23 06/29/24 Skyrizi Inj 1 dose INJ DIRECTED 03/05/24 06/29/24 famotidine 20 mg tablet 20 mg PO HS 06/29/24 06/29/24 Previous Rx's Medication Instructions Recorded tiotropium bromide 2.5 2 inh inhalation QAM #12 grams 10/17/23 mcg/actuation mist for inhalation (Spiriva Respimat) albuterol sulfate 90 mcg/actuation 1 puff inhalation Q6H PRN 11/09/23 aerosol inhaler (ProAir HFA) Shortness Of Breath #8.5 grams tamsulosin 0.4 mg capsule (Flomax) 0.8 mg (2 x 0.4 mg) PO HS BPH #180 02/20/24 caps budesonide-formoterol HFA 160 2 inh inhalation BID #10.2 grams 05/05/24 mcg-4.5 mcg/actuation aerosol inhaler (Symbicort) benralizumab 30 mg/mL subcutaneous See Rx Instructions .Route 06/30/24 syringe (Fasenra) .COMPLEX #1 ea ondansetron 4 mg disintegrating 4 mg PO Q6H PRN nausea and 08/01/24 tablet vomiting #10 tabs Results & Data (ED) Vital Signs Vital Signs - 24 hr 08/14/24 12:49 08/14/24 14:14 08/14/24 14:18 Temperature 36.6 C Temperature Source Temporal Artery Scan Pulse Rate 93 H 94 H Pulse Rate [Apical] 86 Respiratory Rate 18 22 Respiratory Effort / Characteristics Non-Labored Spontaneous Non-Labored Spontaneous Respiratory Depth Normal Normal Respiratory Pattern Regular Blood Pressure 105/72 Blood Pressure [Right Arm] 168/74 H Blood Pressure Mean 83 Blood Pressure Mean [Right Arm] 105 Pulse Oximetry 93 96 Oxygen Delivery Method Room Air Room Air Sepsis Recent Fever Within 48 Hours No Sepsis New/Unexplained Change in Mental Status N/A Sepsis Action Taken by Nursing No Action Required Laboratory Data 08/14/24 13:10 08/14/24 13:10 Lab Results 08/14/24 08/14/24 08/14/24 Range/Units 13:10 14:20 14:25 WBC 22.74 H (4.8-10.8) K/ul RBC 5.53 (4.70-6.10) M/uL Hgb 15.5 (14.0-18.0) g/dl Hct 49.1 (42.0-52.0) % MCV 88.8 (80.0-100.0) fL MCH 28.0 (25.0-34.0) pg MCHC 31.6 L (32.0-36.0) g/dL RDW Std Deviation 53.2 H (36.4-46.3) fL RDW Coeff of Ryan 16.5 H (11.5-14.5) % Plt Count 521 H (130-400) K/uL MPV 10.3 (9.4-12.4) fL Immature Gran % (Auto) 0.4 % Neut % (Auto) 90.3 % Lymph % (Auto) 2.1 % [place] % (Auto) 6.9 % Eos % (Auto) 0.0 % Baso % (Auto) 0.3 % Neut # (Auto) 20.53 H (1.40-6.50) K/uL Lymph # (Auto) 0.47 L (1.20-3.40) K/uL [place] # (Auto) 1.56 H (0.11-0.59) K/uL Eos # (Auto) 0.01 (0.00-0.50) K/uL Baso # (Auto) 0.07 (0.00-0.20) K/uL Immature Gran # (Auto) 0.10 (0.01-0.20) K/uL Polychromasia 1+ Sodium 139 (136-145) mmol/L Potassium 5.2 H (3.5-5.1) mmol/L Chloride 102 (98-107) mmol/L Carbon Dioxide 25 (21-32) mmol/L Anion Gap 12 H (3-11) BUN 15 (6-23) mg/dl Creatinine 1.31 (0.6-1.4) mg/dl Est Cr Clr Drug Dosing Not Reportable eGFR 57.48 BUN/Creatinine Ratio 11.5 (10-20) Glucose 163 H (70-99(Fasting)) mg/dl Lactate 3.9 H* (0.4-2.0) mmol/L Calcium 10.2 (8.6-10.3) mg/dl Magnesium 1.8 (1.7-2.4) mg/dl Total Bilirubin 1.0 (0.2-1.0) mg/dl AST 17 (13-39) U/L ALT 21 (7-52) U/L Alkaline Phosphatase 105 H (34-104) U/L Troponin I High Sens 11.9 (0-20) pg/ml Total Protein 8.0 (6.0-8.3) gm/dl Albumin 4.3 (3.4-5.0) gm/dl Globulin 3.7 (2.5-4.0) gm/dl Albumin/Globulin Ratio 1.2 (0.9-2) Lipase 35 (11-82) U/L Procalcitonin 0.51 H (0-0.5) ng/ml Stl C. diff Tox B Gene (Neg) Adenovirus (PCR) Not Detected (NotDetected) B. pertussis DNA (PCR) Not Detected (NotDetected) B.parapertussis DNA PCR Not Detected (NotDetected) C. pneumoniae DNA (PCR) Not Detected (NotDetected) Coronavirus OC43 (PCR) Not Detected (NotDetected) Coronavirus HKU1 (PCR) Not Detected (NotDetected) Coronavirus 229E (PCR) Not Detected (NotDetected) SARS-CoV-2 (PCR) Not Detected (NotDetected) Coronavirus NL63 (PCR) Not Detected (NotDetected) Human Metapneumovir PCR Not Detected (NotDetected) Influenza Type A (PCR) Not Detected (NotDetected) Influenza Type B (PCR) Not Detected (NotDetected) M. pneumoniae (PCR) Not Detected (NotDetected) Parainfluenza 1 (PCR) Not Detected (NotDetected) Parainfluenza 2 (PCR) Not Detected (NotDetected) Parainfluenza 3 (PCR) Not Detected (NotDetected) Parainfluenza 4 (PCR) Not Detected (NotDetected) RSV (PCR) Not Detected (NotDetected) Entero/Rhino (PCR) Not Detected (NotDetected) 08/14/24 Range/Units Unknown WBC (4.8-10.8) K/ul RBC (4.70-6.10) M/uL Hgb (14.0-18.0) g/dl Hct (42.0-52.0) % MCV (80.0-100.0) fL MCH (25.0-34.0) pg MCHC (32.0-36.0) g/dL RDW Std Deviation (36.4-46.3) fL RDW Coeff of Ryan (11.5-14.5) % Plt Count (130-400) K/uL MPV (9.4-12.4) fL Immature Gran % (Auto) % Neut % (Auto) % Lymph % (Auto) % [place] % (Auto) % Eos % (Auto) % Baso % (Auto) % Neut # (Auto) (1.40-6.50) K/uL Lymph # (Auto) (1.20-3.40) K/uL [place] # (Auto) (0.11-0.59) K/uL Eos # (Auto) (0.00-0.50) K/uL Baso # (Auto) (0.00-0.20) K/uL Immature Gran # (Auto) (0.01-0.20) K/uL Polychromasia Sodium (136-145) mmol/L Potassium (3.5-5.1) mmol/L Chloride (98-107) mmol/L Carbon Dioxide (21-32) mmol/L Anion Gap (3-11) BUN (6-23) mg/dl Creatinine (0.6-1.4) mg/dl Est Cr Clr Drug Dosing eGFR BUN/Creatinine Ratio (10-20) Glucose (70-99(Fasting)) mg/dl Lactate (0.4-2.0) mmol/L Calcium (8.6-10.3) mg/dl Magnesium (1.7-2.4) mg/dl Total Bilirubin (0.2-1.0) mg/dl AST (13-39) U/L ALT (7-52) U/L Alkaline Phosphatase (34-104) U/L Troponin I High Sens (0-20) pg/ml Total Protein (6.0-8.3) gm/dl Albumin (3.4-5.0) gm/dl Globulin (2.5-4.0) gm/dl Albumin/Globulin Ratio (0.9-2) Lipase (11-82) U/L Procalcitonin (0-0.5) ng/ml Stl C. diff Tox B Gene Negative Cdiff Gene (Neg) Adenovirus (PCR) (NotDetected) B. pertussis DNA (PCR) (NotDetected) B.parapertussis DNA PCR (NotDetected) C. pneumoniae DNA (PCR) (NotDetected) Coronavirus OC43 (PCR) (NotDetected) Coronavirus HKU1 (PCR) (NotDetected) Coronavirus 229E (PCR) (NotDetected) SARS-CoV-2 (PCR) (NotDetected) Coronavirus NL63 (PCR) (NotDetected) Human Metapneumovir PCR (NotDetected) Influenza Type A (PCR) (NotDetected) Influenza Type B (PCR) (NotDetected) M. pneumoniae (PCR) (NotDetected) Parainfluenza 1 (PCR) (NotDetected) Parainfluenza 2 (PCR) (NotDetected) Parainfluenza 3 (PCR) (NotDetected) Parainfluenza 4 (PCR) (NotDetected) RSV (PCR) (NotDetected) Entero/Rhino (PCR) (NotDetected) Administered Medications Sodium Chloride (Nss) 1,000 mls @ 999 mls/hr IV .Q1H1M ONE Stop: 08/14/24 16:02 Last Admin: 08/14/24 15:12 Dose: 999 mls/hr Documented By: CEF Discontinued Medications Sodium Chloride (Nss) 1,000 mls @ 999 mls/hr IV .Q1H1M ONE Stop: 08/14/24 14:37 Last Infusion: 08/14/24 15:53 Dose: Infused Documented By: Admin: 08/14/24 14:19 Dose: 999 mls/hr Documented By: SRL Piperacillin Sod/Tazobactam Sod (Zosyn) 4.5 gm in 100 mls @ 200 mls/hr IV NOW ONE; Protocol Stop: 08/14/24 14:55 Last Infusion: 08/14/24 15:53 Dose: Infused Documented By: Admin: 08/14/24 15:12 Dose: 200 mls/hr Documented By: CEF Ioversol (Optiray 320 100ml) 94 ml IV ONCE ONE Stop: 08/14/24 14:01 Last Admin: 08/14/24 14:01 Dose: 94 ml Documented By: RACHEL Ondansetron HCl (Ondansetron Inj 2 Mg/Ml 2 Ml Vial) 4 mg IV NOW STA Stop: 08/14/24 12:51 Last Admin: 08/14/24 13:15 Dose: 4 mg Documented By: ANUJ Imaging Data Radiologist's Impression: Abdomen/Pelvis CT 08/14/24 13:37 CT OF THE ABDOMEN AND PELVIS WITH CONTRAST CLINICAL HISTORY: Nausea, vomiting and diarrhea. Crohn's disease. COMPARISON STUDY: CT T enterography October 24, 2023. Right upper quadrant ultrasound March 05, 2024. TECHNIQUE: Following IV administration of 94 mL of Optiray, axial images of the abdomen and pelvis were obtained from the lung bases to the proximal femurs. Images were reviewed in the axial, sagittal, and coronal planes. IV contrast was administered without complication. Automated exposure control was utilized for the study. A dose lowering technique was utilized adhering to the principles of ALARA. CT DOSE: 1301.84 mGy.cm FINDINGS: Emphysema is incidentally noted within the visualized lung bases. There is no pneumatosis, free air or portal venous gas. Multiple gallstones within the gallbladder are present. The gallbladder is mildly distended without pericholecystic infiltration. There is no biliary or pancreatic ductal dilatation. There are no hepatic lesions. Spleen, adrenal glands and kidneys are normal. There is no hydronephrosis. There is no evidence for a bowel obstruction. No fluid collections are present. There is sigmoid diverticulosis. There is mild stranding adjacent to the mid sigmoid colon. There is no free air or abscess. The colon and small bowel are mildly fluid-filled. Multifocal circumferential wall thickening within the distal ileum is similar to prior exam. There is mild mesenteric hyperemia. Major vasculature is patent. There is no lymphadenopathy. The appendix is normal. IMPRESSION: 1. Sigmoid diverticulosis. Minimal stranding adjacent to the mid sigmoid colon suggests mild acute diverticulitis. No free air or abscess. 2. Fluid-filled small and large bowel. This may indicate a diarrheal state. 3. Multifocal wall thickening within the terminal ileum with mild mesenteric hyperemia. Findings similar to prior study. The findings are consistent with inflammatory bowel disease. No bowel obstruction. No abscess. 4. Cholelithiasis with mild gallbladder distention. No definite pericholecystic inflammation. If right upper quadrant pain, ultrasound is recommended to assess for acute cholecystitis. ACT 112: Negative or not required by law. Electronically signed by: Carl Wu M.D. 08/14/2024 2:25 PM Discharge Plan Visit Data Chief Complaint: Vomiting Stated Complaint: VOMIT, DIARRHEA, DIZZY ED Provider: Olga Munoz Discharge Problem: Diverticulitis, Leukocytosis, Elevated lactic acid level, Cholelithiasis, Nausea, vomiting, and diarrhea Forms Stand Alone Forms: My DataEmail Group Prescriptions Prescriptions: No Action Spiriva Respimat 2.5 mcg/actuation mist 2 inh inhalation QAM Qty: 12 1RF albuterol sulfate [ProAir HFA] 90 mcg/actuation HFA aerosol inhaler 1 puff INHALATION Q6H PRN (Reason: Shortness Of Breath) Qty: 8.5 3RF tamsulosin [Flomax] 0.4 mg capsule 0.8 mg PO HS Qty: 180 1RF budesonide-formoterol [Symbicort] 160-4.5 mcg/actuation HFA aerosol inhaler 2 inh inhalation BID Qty: 10.2 5RF Rx Instructions: WITH A RINSE OF MOUTH AFTERWARDS. Fasenra 30 mg/mL syringe See Rx Instructions .ROUTE .COMPLEX Qty: 1 11RF Dose Instruction: INJECT 30 MG (ONE SYRINGE) SUBCUTANEOUSLY (UNDER THE SKIN) EVERY 8 WEEKS Rx Instructions: INJECT 30 MG (ONE SYRINGE) SUBCUTANEOUSLY (UNDER THE SKIN) EVERY 8 WEEKS APPROVED through pharmacy benefit GOOD 05/31/23 - 07/30/24 APPROVED through medical benefit GOOD 08/20/23 - 08/18/24 mesalamine 0.375 gram capsule,extended release 24hr 1.5 g PO QAM Rx Instructions: TAKES 4 TABS. clotrimazole-betamethasone 1-0.05 % cream 1 appln topical BID PRN (Reason: Rash) Fasenra Pen 30 mg/mL auto-injector 30 mg subcut ONCE Qty: 1 0RF multivitamin Tablet 1 tab PO QAM loperamide [Imodium A-D] 2 mg Capsule 2 mg PO QAM ascorbic acid (vitamin C) [Vitamin C] 500 mg Tablet 500 mg PO QAM colestipol 1 gram tablet 1 g PO BID levothyroxine 112 mcg tablet 112 mcg PO QAM cholecalciferol (vitamin D3) [Vitamin D3] 1,000 unit Tablet,Chewable 1,000 unit PO QAM potassium chloride 10 mEq capsule, extended release 10 meq PO QAM omeprazole 20 mg capsule,delayed release(DR/EC) 20 mg PO QAM rosuvastatin [Crestor] 10 mg tablet 10 mg PO HS trazodone 150 mg Tablet 150 mg PO HS finasteride 5 mg tablet 5 mg PO QAM famotidine 20 mg tablet 20 mg PO HS ondansetron 4 mg tablet,disintegrating 4 mg PO Q6H PRN (Reason: nausea and vomiting) Qty: 10 0RF Skyrizi Inj 1 dose INJ DIRECTED Rx Instructions: every 8 weeks per pt Referrals Referrals: Jocelyne Cook [Primary Care Provider] -
[2024-08-14] MEDS: PIPERACILLIN/TAZOBACTAM 4.5 GM/100 ML BAG IV ONE (15:12)
[2024-08-14 15:32] LABS: Adenovirus PCR Not Detected (NotDetected); Bordetella parapertussis PCR Not Detected (NotDetected); Bordetella pertussis PCR Not Detected (NotDetected); Chlamydia pneumoniae PCR Not Detected (NotDetected); Coronavirus 229E PCR Not Detected (NotDetected); Coronavirus CoV-2 (COVID19)PCR Not Detected (NotDetected); Coronavirus HKU1 PCR Not Detected (NotDetected); Coronavirus NL63 PCR Not Detected (NotDetected); Coronavirus OC43PCR Not Detected (NotDetected); Human Metapneumovirus PCR Not Detected (NotDetected); Influenza A PCR Not Detected (NotDetected); Influenza B PCR Not Detected (NotDetected); Mycoplasma pneumoniae PCR Not Detected (NotDetected); Parainfluenza Virus 1 PCR Not Detected (NotDetected); Parainfluenza Virus 2 PCR Not Detected (NotDetected); Parainfluenza Virus 3 PCR Not Detected (NotDetected); Parainfluenza Virus 4 PCR Not Detected (NotDetected); Respiratory Syncytial VirusPCR Not Detected (NotDetected); Rhinovirus/Enterovirus PCR Not Detected (NotDetected)
[2024-08-14 15:55] LABS: Adenovirus F 40/41 PCR Not Detected (NotDetected); Astrovirus PCR Not Detected (NotDetected); Campylobacter PCR Not Detected (NotDetected); Cryptosporidium PCR Not Detected (NotDetected); Cyclospora cayetanensis PCR Not Detected (NotDetected); Entamoeba histolytica PCR Not Detected (NotDetected); Enteroaggregative E.coli(EAEC) Not Detected (NotDetected); Enteropathogenic E.coli (EPEC) Not Detected (NotDetected); Enterotoxigenic E.coli (ETEC) Not Detected (NotDetected); Giardia lamblia PCR Not Detected (NotDetected); Norovirus GI/GII PCR Not Detected (NotDetected); Plesiomonas shigelloides PCR Not Detected (NotDetected); Rotavirus A PCR Not Detected (NotDetected); Salmonella PCR Not Detected (NotDetected); Sapovirus PCR Not Detected (NotDetected); Shiga-like Toxin E.coli (STEC) Not Detected (NotDetected); Shigella/Enteroinvasive E.coli Not Detected (NotDetected); Vibrio cholerae PCR Not Detected (NotDetected); Vibrio species PCR Not Detected (NotDetected); Yersinia enterocolitica PCR Not Detected (NotDetected)
--- NOTE | 2024-08-14 16:01 | History & Physical Report ---
Date of Service August 14, 2024 Assessment & Plan (1) Crohns disease: Plan: Suspect this is his main problem causing elevated WBC however he technically meets sepsis criteria with possible source of diverticulitis on imaging Solu-medrol 40mg IV TID Consult gastroenterology Continue his usual mesalamine and loperamide (2) Sepsis: Plan: Meets SIRS criteria with WBC and tachycardia with possible source diverticulitis Lactate <4 and not hypotensive therefore does not meet fluid bolus criteria Empiric antibiotics with Zosyn given in the ER, will switch to ceftriaxone/metronidazole Follow up blood cultures CXR ordered No RUQ pain on exam to suggest acute cholecystics (3) Diverticulitis: Plan: Clear liquid diet IV ceftriaxone + metronidazole (4) Hyperkalemia: Plan: Hold supplementation Repeat labs following IV fluids resuscitation Plan Asthma - no acute exacerbation, continue routine inhalers GERD - continue PPI and famotidine BPH - continue tamsulosin VTE Prophylaxis - Lovenox 40mg SQ daily Diet - clear liquid Disposition - admit to med/tele Admission and Anticipated Discharge Date Admission Date: August 14, 2024 History of Present Illness Chief Complaint: Diarrhea Dizziness Generalized weakness Primary Care Provider: Jocelyne Cook José Luis Boone is a 73 year old male who presents to the ER with diarrhea, generalized weakness and dizziness. He reports the diarrhea has been ongoing for the last month and he has a longstanding history of Crohn's disease under [facility]. He reports his diarrhea has been worse since switching from Entyvio to Skyrizi approximately 6 months ago but much worse in last month. He last had Skyrizi 7 weeks ago. For the last 2-3 days the dizziness and generalized weakness started and getting worse to the point he decided to come to the ER. He has not recently been on any steroids for the Crohn's disease. Having mild associated abdominal pain worse in right lower quadrant on palpation. No fever or chills. Allergies Allergy/AdvReac Type Severity Reaction Status Date / Time No Known Allergies Allergy Verified 08/14/24 16:05 Home Medications Medication Instructions Recorded Confirmed Type ascorbic acid (vitamin C) 500 mg 500 mg PO QAM 09/01/18 08/14/24 History tablet (Vitamin C) cholecalciferol (vitamin D3) 25 1,000 unit PO QAM 09/01/18 08/14/24 History mcg (1,000 unit) chewable tablet (Vitamin D3) colestipol 1 gram tablet 1 g PO BID 09/01/18 08/14/24 History levothyroxine 112 mcg tablet 112 mcg PO QAM 09/01/18 08/14/24 History loperamide 2 mg capsule (Imodium 2 mg PO BID 09/01/18 08/14/24 History A-D) multivitamin 1 tab PO QAM 09/01/18 08/14/24 History clotrimazole-betamethasone 1 1 appln topical BID PRN Rash 04/30/19 08/14/24 History %-0.05 % topical cream mesalamine 0.375 gram 1.5 g PO QAM 04/30/19 08/14/24 History capsule,extended release 24 hr potassium chloride 10 mEq 10 meq PO QAM 09/10/22 08/14/24 History capsule,extended release omeprazole 20 mg capsule,delayed 20 mg PO QAM 02/03/23 08/14/24 History release rosuvastatin 10 mg tablet (Crestor) 10 mg PO HS 02/03/23 08/14/24 History finasteride 5 mg tablet 5 mg PO QAM 08/15/23 08/14/24 History trazodone 150 mg tablet 150 mg PO HS 08/15/23 08/14/24 History tiotropium bromide 2.5 2 inh inhalation QAM #12 grams 10/17/23 08/14/24 Rx mcg/actuation mist for inhalation (Spiriva Respimat) albuterol sulfate 90 mcg/actuation 1 puff inhalation Q6H PRN 11/09/23 08/14/24 Rx aerosol inhaler (ProAir HFA) Shortness Of Breath #8.5 grams tamsulosin 0.4 mg capsule (Flomax) 0.8 mg (2 x 0.4 mg) PO HS BPH #180 02/20/24 08/14/24 Rx caps risankizumab-rzaa 150 mg/mL 0 mg INJ UD ##0 03/05/24 08/14/24 History subcutaneous pen injector (Skyrizi) budesonide-formoterol HFA 160 2 inh inhalation BID #10.2 grams 05/05/24 08/14/24 Rx mcg-4.5 mcg/actuation aerosol inhaler (Symbicort) famotidine 20 mg tablet 20 mg PO HS 06/29/24 08/14/24 History benralizumab 30 mg/mL subcutaneous See Rx Instructions .Route 06/30/24 08/14/24 Rx syringe (Fasenra) .COMPLEX #1 ea ondansetron 4 mg disintegrating 4 mg PO Q6H PRN nausea and 08/01/24 08/14/24 Rx tablet vomiting #10 tabs Past Med/Surg History Problem List (Updated 08/15/24 @ 06:38 by Crow Morris MD) Hyperkalemia Sepsis Nausea, vomiting, and diarrhea (Acute) Cholelithiasis (Acute) Elevated lactic acid level (Acute) Leukocytosis (Acute) Diverticulitis (Acute) Nausea and vomiting (Acute) Diarrhea (Acute) Acute dehydration (Acute) RUQ abdominal pain (Acute) Pleuritic chest pain (Acute) Crohns disease Acute cholecystitis Edema of left lower extremity Acute hypoxemic respiratory failure Small bowel obstruction 08/2022 - treated at [facility] [place] with NG Tube - no surgery. Screening PSA (prostate specific antigen) Bibasilar crackles BPH loc w urin obs/LUTS Nocturia Hypoxia (Acute) Acute respiratory distress Bronchiectasis (Acute) Sinus tachycardia seen on specialist physician S/P bronchoscopy with bronchoalveolar lavage Injury of left foot (Acute) Influenza A Hyponatremia Fall from ladder (Acute) Dyspnea on exertion COPD (chronic obstructive pulmonary disease) (Acute) Eosinophilia (Chronic) ADELAIDA (obstructive sleep apnea) pt denies Crohn's disease in remission currently having a flare- following with Dr Ainsley Nielsen hx ~2017, where his breathing from there had worsened and follows with [facility] Pulmonary currently. Severe persistent asthma Hypertension Hypothyroid Diastolic heart failure Medical History (Updated 08/15/24 @ 06:38 by Crow Morris MD) History of Crohn's disease Right-sided chest pain History of esophageal dilatation (~2002) History of melanoma COPD (chronic obstructive pulmonary disease) inhaler/nebulizer prn Surgical History (Updated 08/14/24 @ 16:44 by Crow Morris MD) History of cardiac catheterization 03/2017 @ [facility] with Dr. Teague--NO stents History of esophagogastroduodenoscopy (EGD) (~2002) Hx of vasectomy History of melanoma excision above right eye History of tooth extraction all lower teeth/partial upper History of tonsillectomy History of bilateral cataract extraction History of bronchoscopy multiple History of colonoscopy with polypectomy Family History Other Hypertension No family history of adverse response to anesthesia No significant family history Denies family history of Myocardial infarction Stroke Social History Smoking Status: Former smoker Tobacco Type: Cigarettes Age Started Using Tobacco: 17; Age Quit Using Tobacco: 50; Cigarettes Per Day: pack a day; Smoking End Date: 2000; Second Hand Exposure: No; Do You Dip or Chew Tobacco: No; Hx Alcohol Use: Yes Alcohol type: hard liquor Alcohol Intake Frequency Comment: 1x per month, 1-3 drinks per sitting Hx Substance Use: No Preferred Language: Kazakh Communication Ability: Effective Visual Impairment: No Limitations Hearing Ability: Normal Trouble Lineman Required: No Beliefs That Will Affect Care: None Current Living Situation: Spouse Current Living Situation Comment: House with Feels Safe at Home: Yes Assistive Devices: None Review of Systems Review of Systems: All systems reviewed & are unremarkable except as noted in HPI & below Physical Exam Constitutional: WD/WN, vitals as above Respiratory: normal respiratory effort, lungs clear to auscultation Cardiovascular: RRR, no murmur, no edema Gastrointestinal (Abdomen): Percussion/Palpation: + abdomen tender (RLQ > LLQ) and abdomen soft; no guarding and abdomen not rigid Musculoskeletal: no cyanosis or clubbing, extremities motor strength 5/5 Skin: no rashes, warm and dry Neurologic: moves all extremities and awake; not confused Psychiatric: A+Ox3, euthymic affect Results & Data Results & Data Vital Signs (Past 12 Hours) Vital Signs Temp Pulse Pulse Resp BP BP Pulse Ox 08/14/24 14:18 94 H 08/14/24 14:14 86 22 168/74 H 96 08/14/24 12:49 36.6 C 93 H 18 105/72 93 O2 Del Method 08/14/24 14:18 08/14/24 14:14 Room Air 08/14/24 12:49 Room Air Laboratory Results Abnormal lab results 08/14/24 08/14/24 08/14/24 Range/Units 13:10 14:25 16:37 WBC 22.74 H (4.8-10.8) K/ul MCHC 31.6 L (32.0-36.0) g/dL RDW Std Deviation 53.2 H (36.4-46.3) fL RDW Coeff of Ryan 16.5 H (11.5-14.5) % Plt Count 521 H (130-400) K/uL Neut # (Auto) 20.53 H (1.40-6.50) K/uL Lymph # (Auto) 0.47 L (1.20-3.40) K/uL Mcdonald # (Auto) 1.56 H (0.11-0.59) K/uL ESR 80 H (0-20) mm/hr Potassium 5.2 H (3.5-5.1) mmol/L Anion Gap 12 H (3-11) Glucose 163 H (70-99(Fasting)) mg/dl Lactate 3.9 H* 2.8 H* (0.4-2.0) mmol/L Alkaline Phosphatase 105 H (34-104) U/L C-Reactive Protein 4.68 H (0-0.5) mg/dl Procalcitonin 0.51 H (0-0.5) ng/ml Ur Specific [place] (1.000-1.030) 08/14/24 08/14/24 Range/Units 16:55 19:38 WBC (4.8-10.8) K/ul MCHC (32.0-36.0) g/dL RDW Std Deviation (36.4-46.3) fL RDW Coeff of Ryan (11.5-14.5) % Plt Count (130-400) K/uL Neut # (Auto) (1.40-6.50) K/uL Lymph # (Auto) (1.20-3.40) K/uL Mcdonald # (Auto) (0.11-0.59) K/uL ESR (0-20) mm/hr Potassium (3.5-5.1) mmol/L Anion Gap (3-11) Glucose 148 H (70-99(Fasting)) mg/dl Lactate (0.4-2.0) mmol/L Alkaline Phosphatase (34-104) U/L C-Reactive Protein (0-0.5) mg/dl Procalcitonin (0-0.5) ng/ml Ur Specific [place] > 1.045 H (1.000-1.030) Diagnostic Findings CT OF THE ABDOMEN AND PELVIS WITH CONTRAST CLINICAL HISTORY: Nausea, vomiting and diarrhea. Crohn's disease. COMPARISON STUDY: CT T enterography October 24, 2023. Right upper quadrant ultrasound March 05, 2024. TECHNIQUE: Following IV administration of 94 mL of Optiray, axial images of the abdomen and pelvis were obtained from the lung bases to the proximal femurs. Images were reviewed in the axial, sagittal, and coronal planes. IV contrast was administered without complication. Automated exposure control was utilized for the study. A dose lowering technique was utilized adhering to the principles of ALARA. CT DOSE: 1301.84 mGy.cm FINDINGS: Emphysema is incidentally noted within the visualized lung bases. There is no pneumatosis, free air or portal venous gas. Multiple gallstones within the gallbladder are present. The gallbladder is mildly distended without pericholecystic infiltration. There is no biliary or pancreatic ductal dilatation. There are no hepatic lesions. Spleen, adrenal glands and kidneys are normal. There is no hydronephrosis. There is no evidence for a bowel obstruction. No fluid collections are present. There is sigmoid diverticulosis. There is mild stranding adjacent to the mid sigmoid colon. There is no free air or abscess. The colon and small bowel are mildly fluid-filled. Multifocal circumferential wall thickening within the distal ileum is similar to prior exam. There is mild mesenteric hyperemia. Major vasculature is patent. There is no lymphadenopathy. The appendix is normal. IMPRESSION: 1. Sigmoid diverticulosis. Minimal stranding adjacent to the mid sigmoid colon suggests mild acute diverticulitis. No free air or abscess. 2. Fluid-filled small and large bowel. This may indicate a diarrheal state. 3. Multifocal wall thickening within the terminal ileum with mild mesenteric hyperemia. Findings similar to prior study. The findings are consistent with inflammatory bowel disease. No bowel obstruction. No abscess. 4. Cholelithiasis with mild gallbladder distention. No definite pericholecystic inflammation. If right upper quadrant pain, ultrasound is recommended to assess for acute cholecystitis. Medications Administered ER Medications Given: Ondansetron 4mg IV Normal saline 1000ml bolus x2 Zosyn 4.5g IV ECG Rate (beats per minute): 109 Rhythm: sinus tachycardia Findings: + nonspecific-ST abn; no acute ischemic change Comparison ECG Date: from (August 01, 2024) Change: the following changes noted (Non-specific ST abnormality now present) Code Status & VTE Plan Code Status Full VTE Prophylaxis Plan VTE Prophylaxis will be ordered: Yes PG Care Time/CCT Total # of Minutes Spent Total Time Spent with Patient: Total time spent is greater than 50% in coordination of care (as documented) at patient's floor/unit and/or counseling patient: Coding Level of Care Code 25905 INT INP/OBS CARE 3/75MIN Diagnoses Crohns disease K50.90 Sepsis A41.9 Diverticulitis K57.92 Hyperkalemia E87.5
[2024-08-14 16:08] LABS: C Reactive Protein 4.68 mg/dl (0-0.5)
[2024-08-14] MEDS: methylPREDNISolone 125 MG/2 ML VIAL IV STA (16:17)
[2024-08-14 17:10] LABS: Appearance Urine Clear (Clear); Bilirubin Urine Negative (Negative); Blood Urine Negative (Negative); Color Urine Yellow; Glucose Urine UA Negative (Negative); Ketones Urine Negative (Negative); Leukocyte Esterase Urine Negative (Negative); Nitrite Urine Negative (Negative); Protein Urine Negative (Negative); Specific Gravity Urine > 1.045 (1.000-1.030); Urobilinogen Urine Negative (Negative)
--- NOTE | 2024-08-14 17:18 | Electrocardiogram Report ---
Test Reason : Blood Pressure : */* mmHG Vent. Rate : 109 BPM Atrial Rate : 109 BPM P-R Int : 142 ms QRS Dur : 78 ms QT Int : 364 ms P-R-T Axes : 68 74 71 degrees QTcB Int : 490 ms Sinus tachycardia Nonspecific ST abnormality Abnormal ECG When compared with ECG of 01-Aug-2024 13:22, Vent. rate has increased by [address] abnormality now present Confirmed by Donato Peters ([id number]) on 08/14/2024 5:17:40 PM Referred By: Confirmed By: Donato Peters
--- NOTE | 2024-08-14 18:00 | XRay Report ---
EXAM: XR chest 1V portable CLINICAL HISTORY: SEPSIS MRN/KFK TECHNIQUE: An X-ray image of the chest is obtained in AP projection. COMPARISON: 08/01/2024. FINDINGS: Pulmonary Parenchyma: No appreciable changes as regards the previously depicted diffuse bilateral peribronchial thickening most evident at the left lower lung zone with subtle haziness and subtle basal thin atelectatic plates. No evidence of consolidation, collapse, or focal opacities. No pulmonary nodules are identified. Obscured left costophrenic angle likely minimal effusion /pleural thickening. Heart and Mediastinum: Heart size and shape are normal. No mediastinal widening or masses. No hilar or mediastinal lymphadenopathy. Bony Thorax: Bony thorax appears intact without fractures or deformities. Soft Tissues: Soft tissues overlying the chest wall are unremarkable. IMPRESSION: Follow-up showing stationary course as regards the diffuse peribronchial cuffing most evident at left lower lung zone likely inflammatory with obscured left costophrenic angle, which may represent minimal pleural effusion/thickening. Suggest clinical correlation and follow-up if clinically warranted. Electronically signed by Adriana Downs 08-14-2024 5:58 PM
[2024-08-14] MEDS ORDERED: CLOTRIMAZOLE/BETAMETHASONE CR 15 GM TUBE EXT PRN (18:33)
[2024-08-14] MEDS ORDERED: ONDANSETRON INJ 2 MG/ML 2 ML VIAL IV PRN (18:33)
[2024-08-14 20:09] LABS: Calcium 8.8 mg/dl (8.6-10.3); Creatinine Clr Calc Pharmacy 73.1 ml/min; Potassium 4.2 mmol/L (3.5-5.1)
[2024-08-14] MEDS: ROSUVASTATIN CALCIUM 10 MG TAB PO SCH (20:22)
[2024-08-14] MEDS: TAMSULOSIN HCL 0.4 MG CAP PO SCH (20:22)
[2024-08-14] MEDS: traZODone HCL 50 MG TAB PO SCH (20:23)
[2024-08-14] MEDS: FAMOTIDINE 20 MG TAB PO SCH (20:23)
[2024-08-14] MEDS: methylPREDNISolone 40 MG in SYRINGE 0 ML IV SCH (20:24)
[2024-08-14] MEDS: COLESTIPOL HCL 1 GM TAB PO SCH (20:24)
[2024-08-14] MEDS: FLUTICASONE/VILANTEROL 200/25MCG 14 PUFFS/INHALER INH SCH (20:25)
[2024-08-14] MEDS: LOPERAMIDE HCL 2 MG CAP PO SCH (20:29)
[2024-08-14] MEDS ORDERED: methylPREDNISolone 125 MG/2 ML VIAL IV SCH (21:00)
[2024-08-14] MEDS: ENOXAPARIN INJ 40 MG/0.4 ML SYR SQ SCH (22:47)
[2024-08-14] MEDS: cefTRIAXone SODIUM 2,000 MG/50 ML BAG IV SCH (22:48)
[2024-08-14] MEDS: metroNIDAZOLE 500 MG/100 ML BAG IV SCH (23:18)
--- OUTSIDE RECORDS SUMMARY | 2024-08-15 04:15 | External Medical Summary | Continuity of Care Document ---
Author Name Unknown Organization [address] [id number] Care Team Providers Care Literacy Consultant Name Role Phone Ryan Cooknirmalrachelle Primary Care Physician [phone] Encounter [facility] [id number] Date(s): 08/06/24 - 08/06/[address] [address] [phone] Encounter Diagnosis Crohn's disease(Discharge Diagnosis) - 08/06/24 Fatty liver(Discharge Diagnosis) - 08/06/24 GERD (gastroesophageal reflux disease)(Discharge Diagnosis) - 08/06/24 Internal hemorrhoids(Discharge Diagnosis) - 08/06/24 Diarrhea(Discharge Diagnosis) - 08/06/24 Discharge Disposition: Home or Self Care Attending Physician: ANJALI Hendrickson Kelli Jo Allergies, Adverse Reactions, Alerts No Known Allergies Assessment and Plan Extracted from: Title:Office Visit Note Author:ANJALI Hendrickson Kell i Jo Date:08/07/24 1.Crohn's disease Patient presentsto ct newforCrohn's disease. He unfortunately was on Entyvio at which point he presented with an elevated fecal calprotectinin November 2023. In January 2024 he was started on Skyrizi. Over the last 2 to 3 weeks he has complained of increasing loose bowel movementscompared to baseline. -Patient is to obtain Skyrizi activity and antibody levelsas well as submit a fecal calprotectinnext or Sunday morning beforehis Skyrizi subcutaneous injection. -Continue increase colestipol(2 tablets twice daily)may consider switching to cholestyramineifIBD workup is within normal limits. -I have reviewed his recentemergencyvisit noteand /1/2024. Laboratory studies do not demonstrate a leukocytosis but there is a mild left shift on differential. Thuspossible viral infection. BUN/CR were normaland do not indicate dehydration. Liver functions with the exception of a mild elevation of total bilirubinas well as lipase were normal. Stool studies including C. difficilewere negative. COVID test negative. Respiratory panel was notdrawn. -Will formulate ongoing planafterreviewing fecal calprotectin. 2.Fatty liver Continue diet, exercise and weight loss. Will consider updated ultrasound and FibroScanonce Crohn's is stable 3.GERD (gastroesophageal reflux disease) Controlled on famotidine 4.Internal hemorrhoids No complaints today. GI follow up in 3-4 weeks,sooner if needed. I have spent 50 minutes in evaluation, education and documentation of this pt in both face to face and non-face to face activities. Immunizations Given and Recorded Vaccine Date Status Refusal Reason SARS-CoV-2 mRNA (topramoderan 5y-11y) 09/21/22 Tommy rded pneumococcal 20-valent conjugate [...] mg oral delayed release tablet Start: 12/21/23 2:52:00 PM EDT, 1 tab, PO, Daily, Disp# 90 tab, Refills: 0, other Start Date: 12/21/23 Status: Ordered betamethasone-clotrimazole 0.05%-1% topical cream Start: 08/06/24 1:33:00 PM EST, See Instructions, Disp# 45 g, Refills: 0, APPLY TOPICALLY DAILY, USEON BUTTOCKS NEEDED, Pharmacy: [id number] Start Date: 08/06/24 Status: Ordered budesonide 9 mg oral tablet, extended release Start: 08/06/24 1:33:00 PM EST, 1 tab, PO, qAM, Disp# 56 tab, Refills: 0, DO NOT START UNTIL AFTER 08/25 Stool and Labs are submitted, Pharmacy: [id number] Start Date: 08/06/24 Stop Date: 10/01/24 Status: Ordered colestipol 1 g oral tablet Start: 10/02/23 8:01:00 AM EST, 1 tab, PO, bid, Disp# 180 tab, Refills: 3, Pharmacy: [facility] Start Date: 10/02/23 Status: Ordered famotidine 20 mg oral tablet Start: 02/20/24 3:16:00 PM EDT, 1 tab, PO, qhs, Disp# 90 tab, Refills: 3, AVOID EATING AND. FOR 10 MINUTES AFTER EACH DOSE., Pharmacy: [facility] Start Date: 02/20/24 Status: Ordered Fasenra 30 mg/mL subcutaneous solution Start: 06/27/19 9:53:00 AM EDT, q8 weeks Start Date: 06/27/19 Status: Ordered finasteride 5 mg oral tablet Start: 06/24/24 4:14:00 PM EDT, 1 tab, PO, Daily, Disp# 90 tab, Refills: 3, Pharmacy: [facility] Start Date: 06/24/24 Status: Ordered levothyroxine 112 mcg (0.112 mg) oral tablet Start: 04/08/24 10:30:00 AM EDT, See Instructions, Disp# 90 tab, Refills: 1, TAKE 1 TABLET DAILY, Pharmacy: [facility] Start Date: 04/08/24 Status: Ordered loperamide 2 mg oral capsule Start: 12/12/23 9:20:00 AM EDT, See Instructions, Disp# 180 cap, Refills: 3, TAKE 1 CAPSULE TWICE A DAY NEEDED FOR DIARRHEA, Pharmacy: [facility] Start Date: 12/12/23 Status: Ordered mesalamine 0.375 g oral capsule, extended release Start: 08/06/24 1:34:00 PM EST, 4 cap, PO, qAM, Disp# 360 cap, Refills: 3, [facility] Start Date: 08/06/24 Status: Ordered potassium chloride 10 mEq oral capsule, extended release Start: 10/02/23 2:07:00 PM EST, 1 cap, PO, Daily, Disp# 90 cap, Refills: 3, [facility] Start Date: 10/02/23 Stop Date: 09/26/24 Status: Ordered ProAir HFA 90 mcg/inh inhalation aerosol Start: 02/24/20 10:58:00 AM EDT, 2 puff, inhaled, qid, Disp# 1 each, Refills: 5, PRN: as needed for wheezing and cough, Pharmacy: [facility] #[id number] Start Date: 02/24/20 Status: Ordered rosuvastatin 5 mg oral tablet Start: 04/04/23 4:22:00 PM EDT, 1 tab, PO, qhs, Disp# 90 tab, Refills: 3, Pharmacy: [facility] Start Date: 04/04/23 Stop Date: 03/29/24 Status: Suspended Skyrizi 180 mg/1.2 mL subcutaneous solution Start: 04/16/24 12:47:00 PM EDT, 1.2 mL, subQ, [id number], Disp# 1.2 mL, Refills: 7, Pharmacy: [facility] Start Date: 04/16/24 Status: Ordered tamsulosin 0.4 mg oral capsule Start: 09/03/23 3:45:00 PM EST, 2 cap, PO, Daily, 30 minutes after the same meal Start Date: 09/03/23 Status: Ordered traMADol 50 mg oral tablet Start: 07/03/24 11:06:00 AM EDT, 1 tab, PO, q4h, Disp# 18 tab, Refills: 0, PRN: as needed for pain, Pharmacy: [facility]acy #[id number] Start Date: 07/03/24 Stop Date: 07/06/24 Status: Ordered traMADol 50 mg oral tablet Start: 07/15/24 5:08:00 PM EDT, 1 tab, PO, q4h, Disp# 24 tab, Refills: 1, PRN: as needed for pain, Pharmacy: [facility]/pharmacy #[id number] Start Date: 07/15/24 Stop Date: 07/21/24 Status: Ordered traZODone 150 mg oral tablet Start: 10/02/23 8:01:00 AM EST, 1 tab, PO, qhs, Disp# 90 tab, Refills: 3, Pharmacy: [facility] Start Date: 10/02/23 Status: Ordered traZODone 50 mg oral tablet Start: 05/20/24 5:12:00 PM EDT, 1 tab, PO, qhs, Disp# 90 tab, Refills: 3, take together with one 150mg pill, Pharmacy: [facility] Start Date: 05/20/24 Stop Date: 05/15/25 Status: Ordered Vitamin D3 1000 intl units oral tablet Start: 12/09/12 4:31:00 PM EDT, 1 tab, PO, Daily Start Date: 12/09/12 Status: Ordered Mental Status 08/06/24 Barriers to Learning one year None evide nt Mandatory Health Literacy Documentation Yes Health Literacy Communication Barriers N ever Primary Language [place] Problem List Condition Confirmation Course Effective Dates Status Health Status Informant Diarrhea Confirmed Active Atherosclerosis of aorta 1 Confirmed Active BPH (benign prostatic hyperplasia) Confirmed Active Benign prostatic hyperplasia without lower urinary tract symptoms Confirmed 04/23/24 Active Tarsal tunnel syndrome, bilateral Confirmed Active Bronchiectasis Confirmed Active Bilateral carpal tunnel syndrome Confirmed Active Crohn's disease Confirmed Active Degenerative disc disease 2 Confirmed Active Diastolic heart failure Confirmed Active Disorder of esophagus Confirmed Active DiverticulOSIS Confirmed Active Foot pain 3 Confirmed Active Coccygeal fracture Confirmed Active GERD (gastroesophageal reflux disease) Confirmed Active History of SCC (squamous cell carcinoma) of skin 4 Confirmed Active Hyperlipemia Confirmed Active Heart disease, hypertensive, with heart failure Confirmed Active Nonfamilial hypogammaglobulinemia Confirmed Active Hypothyroid Confirmed Active Erectile dysfunction Confirmed Active Insomnia Confirmed 04/23/24 Active Internal hemorrhoids Confirmed Active Iron deficiency anemia Confirmed Active Loss of sense of smell Confirmed Active Lumbalgia Confirmed Active Lumbar radiculopathy Confirmed Active MDD (major depressive disorder) Confirmed Active Unilateral mass of neck Confirmed Active Actinic keratoses Confirmed Active Myalgia Confirmed Active Obstructive sleep apnea syndrome Confirmed Active Pain of right thumb Confirmed Active Prediabetes Confirmed Active Emphysema/COPD Confirmed Active Major depressive disorder, recurrent, mild 5 Confirmed Active Seborrheic keratoses Confirmed Active SBO (small bowel obstruction) Confirmed [...] 4Invasive; Right Lateral forehead PHQ9= 9 [id number] Diagnosis Diagnosis Type Effective Dates Health Status Clinical Service Informant Fatty liver Discharge Diagnosis 08/06/24 Non-Specified Diarrhea Discharge Diagnosis 08/06/24 Non-Specified Crohn's disease Discharge Diagnosis 08/06/24 Non-Specified GERD (gastroesophageal reflux disease) Discharge Diagnosis 08/06/24 Non-Specified Internal hemorrhoids Discharge Diagnosis 08/06/24 Non-Specified Procedures Procedure Date Related Diagnosis Body Site Status Shave biopsy of skin 05/13/[address] of lungs 11/2023 Completed Colonoscopy 1 [...] 04/07/[address] enterography 40 02/17/19 Comple annalee Bronchial washing 41 01/06/19 Comp leted Bronchoscopy [...] nl, AST 22 nl, ALT 46 nl. 16MN admit for SBO Initial WBC 20.2, CMP [...] nl, 24CBC, BUN, Cr, AST, ALT normal 25MN labs PSA nl, FT4 nl, TSH nl, [...] incisors. Normal stomach. Normal examined duodenum. The SoapetsBO pH capsule was deployed. No specimens collected. [...] actue fracture. 68pt was hospitalized between 03/15- Vital Signs Most recent to oldest [Reference Range]: 1 Patient Weight 97.2 kg (08/06/24 12:57 PM) Heart Rate 66 bpm (08/06/24 12:57 PM) Respiratory Rate 17 br/min (08/06/24 12:57 PM) Blood Pressure 132/72mmHg (08/06/24 12:57 PM) Social History Social History Type Response Smoking Status Never smoked cigaret olu Sex Male Sex Representation Male (finding) Gastroenterology Outpatient Note * ANJALI Hendrickson, Briana Guan: PERFORM Event Display: Gastroenterology Outpt Note Authored Date: [id number] Chief Complaint Concerns with diarrhea for 2-3 weeks now History of Present Illness The patient is a pleasant [id number] presents today for follow up patient evaluation of Crohn's Disease.[facility],and pastmedical historyreviewed. Prior records: Pt previously followed by Dr. Schmitz and more recently Dr. Arrington. See HPI on OV07/03/2024 08/22/2023 EGD:normal with duodenal path normal 08/22/2023olo:exam to TI, pandiverticulosis but otherwise normal. regional biopsies done and negative except for one area of inflammation in the rectum, repeat in 3 years recommended. 12/05/2023Stool:Fecal calprotectin 374 H 01/04/2024Entyvio level21.5 with Ab neg (level 20.1 06/2023 and 20.6 03/2023 and 11.4 01/2023 all noAb). Pt had 2 iron infusions. 03/05/2024[facility] admit for RUQ pain, pleuritic UQ US during [facility] gallstones, wall of GB upper limit normal. hest CTA during [facility] neg for PE, RLL infiltrate, emphysema 03/2024HIDA during [facility] reportedly neg but do not have report. 03/2024 CBC nl, CMP nl, gluc 150 H, lipase normal. 02/01/2024, 02/29/2024, and 02/26/2024SkyriziSkyrizi induction. Completed. First sq injectionJuly 2023. 04/16/2024OV ([place]):Pt states having some discomfort on DC from hospital but resolved.Pt states 90% of time stools firm and can be loose.RUQ pain seems to be with spaghetti. 08/06/2024OV ([place]):Patient presents for acute visit of worsening diarrheal symptoms. Hestates about 2 to 3 weeks ago his symptomssuddenly worsened toBristol type VII bowel movements. Approximately 1 week ago he messaged and asking if he could increase his colestipoland thus he doubled it to 2 tablets twice a day.He is currently on the tail end of his injectionsas his next 1 is due1 weekfrom now on 08/15. He does report that having increased the colestipol has helped. He is now having a [place] type V bowel movementapproximately 3 times a day. He denies melena, hematochezia or mucus. He states that he is having a crampy abdominal discomfortsecondaryto gasthat resolves after having a bowel movement. He does state that he has had a couple of falls in the last 2 months. His most recent 1was regarding a loss of consciousnessand he was sent to the emergency room. He states at that point he did receive IV fluids for likely dehydration. He had also been having vomiting over that weekend. He states that the vomiting resolved after the fluids. His appetite remains fairly normal as well. His concerns are that his Skyrizi is not working. He denies generalized abdominal pain, nausea, vomiting,dysphagia,recurrent heartburn, unintentional weight loss. Family History: Deniesfamilyhistory of colorectal cancer, liver disease, IBD, IBS, pancreatic disease, celiac disease No further complaints or concerns today. Physical Exam Vitals & Measurements HR:66(Monitored) RR:17 BP:132/72 SpO2:95% WT:97.200kg(Dosing) WT:97.2kg General:Alert and oriented, No acute distress, appears stated age HENT:Normocephalic, normal hearing Respiratory: Respiration are non-labored, pt speaking in complete sentences,and no evidence of respiratory distress is noted Integumentary:Exposed skin viewable is dry and intact Psychiatric:Cooperative, appropriate mood & affect, Normal judgement Assessment/Plan 1.Crohn's disease Patient presentsto me newforCrohn's disease. He unfortunately was on Entyvio at which pointhe presented with an elevated fecal calprotectinin November 2023. In January 2024 he was started on Skyrizi. Over the last 2 to 3 weeks he has complained of increasing loose bowel movementscompared to baseline. -Patient is to obtain Skyrizi activity and antibody levelsas well as submit a fecal calprotectinnext or Sunday morning beforehis Skyrizi subcutaneous injection. -Continue increase colestipol(2 tablets twice daily)may consider switching to cholestyramineifIBD workup is within normal limits. -I have reviewed his recentemergencyvisit noteand wilqocuzgx39/1/2024. Laboratory studies do not demonstrate a leukocytosis but there is a mild left shift on differential. Thuspossible viral infection. BUN/CR were normaland do not indicate dehydration. Liver functions with theexception of a mild elevation of total bilirubinas well as lipase were normal. Stool studies including C. difficilewere negative. COVID test negative. Respiratory panel was notdrawn. -Will formulate ongoing planafterreviewing fecal calprotectin. 2.Fatty liver Continue diet, exercise and weight loss. Will consider updated ultrasound and FibroScanonce Crohn's is stable 3.GERD (gastroesophageal reflux disease) Controlled on famotidine 4.Internal hemorrhoids No complaints today. GI follow up in 3-4 weeks,sooner if needed. I have spent 50 minutes in evaluation, education and documentation of this pt in both face to face and non-face to face activities. Problem List/Past Medical History Ongoing Actinic keratoses Atherosclerosis of aorta Benign prostatic hyperplasia without lower urinary tract symptoms Bilateral carpal tunnel syndrome BPH (benign prostatic hyperplasia) Bronchiectasis Coccygeal fracture Crohn's disease Degenerative disc disease Diarrhea Diastolic heart failure Disorder of esophagus DiverticulOSIS Emphysema/COPD Erectile dysfunction Fatty liver Foot pain GERD (gastroesophageal reflux disease) Heart disease, hypertensive, with heart failure History of SCC (squamous cell carcinoma) of skin Hyperlipemia Hypothyroid Insomnia Internal hemorrhoids Iron deficiency anemia Loss of sense of smell Lumbalgia Lumbar radiculopathy Major depressive disorder, recurrent, mild MDD (major depressive disorder) Myalgia Nonfamilial hypogammaglobulinemia Obstructive sleep apnea syndrome Pain of right thumb Prediabetes Retrolisthesis of vertebrae SBO (small bowel obstruction) Seborrheic keratoses Tarsal tunnel syndrome, bilateral Unilateral mass of neck Weight disorder Resolved Ankle pain Gastroesophageal reflux disease Obstructive Sleep Apnea (Adult) (Pediatric) Pneumonia T2DM (type 2 diabetes mellitus) Procedure/Surgical History Shave biopsy of skin| Service Date: 4CT of lungs| Service Date: 11/2023EGD - esophagogastroduodenoscopy| Service Date: 08/22/2023olonoscopy| Service Date: 08/22/2023Laboratory findings data interpretation| Service Date: 04/20/2023Laboratory findings data interpretation| Service Date: 02/09/2023T of abdomen and pelvis| Service Date: 02/03/2023Ultrasound scan of gallbladder| Service Date: 02/03/2023hest angiography| Service Date: 02/03/2023Laboratory findings data interpretation| Service Date: 12/29/2022Laboratory findings data interpretation| Service Date: 11/13/2022T of abdomen and pelvis| Service Date: 10/17/2022Laboratory findings data interpretation| Service Date: 09/18/2022Hospital admission| Service Date: 09/11/2022T of abdomen and pelvis| Service Date: 09/10/2022KUB X-ray| Service Date: 09/10/2022Laboratory findings data interpretation| Service Date: 07/24/2022Laboratory findings data interpretation| Service Date: 05/29/2022X-ray of rib| Service Date: 05/29/2022Laboratory findings data interpretation| Service Date: 04/04/2022Laboratory findings data interpretation| Service Date: 01/30/2022Laboratory findings data interpretation| Service Date: 12/05/2021Laboratory findings data interpretation| Service Date: 11/21/2021Laboratory findings data interpretation| Service Date: 2DEXA - dual energy X-ray absorptiometry| Service Date: 09/01/2021aboratory findings data interpretat ion| Service Date: 08/17/2021Ultrasound finding| Service Date: 07/25/2021aboratory findings data interpretation| Service Date: 06/20/2021aboratory findings data interpretation| Service Date: 04/25/2021lain X-ray of left shoulder| Service Date: 09/29/2020Shave biopsy and cauterization of skin| Service Date: 07/27/2020Colonoscopy| Service Date: 06/18/2020Shave biopsy and cauterization of skin| Service Date: 04/23/2020Cataract| Service Date: 03/02/2020Chest X-ray| Service Date: 12/18/2019Spirometry| Service Date: 08/21/2019X-ray of right thumb| Service Date: 05/27/2019Bronchoscopy and bronchoalveolar lavage| Service Date: 05/01/2019DEXA (dual energy X-ray photon absorptiometry) scan of lateral spine| Service Date: 04/07/2019CT enterography| Service Date: 02/17/2019Bronchial washing| Service Date: 01/06/2019Bronchoscopy| Service Date: 11/13/2018Pathology report| Service Date: 09/03/2018Colonoscopy| Service Date: 04/25/2018Colonoscopy| Service Date: 04/25/2018Polysomnograph| Service Date: 04/23/2018Emergency medical services| Service Date: 01/28/2018Bronchoscopy| Service Date: 12/17/2017Ambulatory pH monitoring| Service Date: 11/30/2017Upper GI endoscopy| Service Date: 11/26/2017Echocardiogram| Service Date: 10/19/2017Chest CT| Service Date: 10/19/2017Chest X-ray| Service Date: 10/19/2017Cardiac catheterization, right heart| Service Date: 03/20/2017Pulmonary function test| Service Date: 03/15/2017Echocardiogram| Service Date: 03/15/2017Videofluoroscopy swallow| Service Date: 7Duplex scan of arterial inflow and venous outflow of abdominal, pelvic, scrotal contents and/orretroperitoneal organs; complete study.| Service Date: 08/11/2016MRI of lumbar spine| Service Date: 03/09/2016Colonoscopy| Service Date: 10/13/2014Sacroiliac joint XRAY| Service Date: 014Spine XRAY| Service Date: 09/18/2014Ultrasound-Abdominal| Service Date: 09/18/2014X-rayof left foot| Service Date: 03/27/2014colonoscopy| Service Date: 10/30/2011ronchoscopy Medications albuterol(ProAir HFA 90 mcg/inh inhalation aerosol), 2 puff, inhaled, qid, PRN, 5 refills aspirin(aspirin 81 mg oral delayed release tablet), 81 mg= 1 tab, PO, Daily benralizumab(Fasenra 30 mg/mL subcutaneous solution) betamethasone-clotrimazole topical(betamethasone-clotrimazole 0.05%-1% topical cream), See Instructions budesonide(budesonide 9 mg oral tablet, extended release), 9 mg= 1 tab, PO, qAM cholecalciferol(Vitamin D3 1000 intl units oral tablet), 1000 Int_Unit= 1 tab, PO, Daily colestipol(colestipol 1 g oral tablet), 1 tab, PO, bid famotidine(famotidine 20 mg oral tablet), 1 tab, PO, qhs finasteride(finasteride 5 mg oral tablet), 1 tab, PO, Daily levothyroxine(levothyroxine 112 mcg (0.112 mg) oral tablet), See Instructions, 1 refills loperamide(loperamide 2 mg oral capsule), See Instructions, 3 refills mesalamine(mesalamine 0.375 g oral capsule, extended release), 4 cap, PO, qAM, 3 refills potassium chloride(potassium chloride 10 mEq oral capsule, extended release), 10 mEq= 1 cap, PO, Daily, 3 refills risankizumab(Skyrizi 180 mg/1.2 mL subcutaneous solution), 180 mg= 1.2 mL, subQ, [id number], 7 refills tamSULOsin(tamsulosin 0.4 mg oral capsule), 0.8 mg= 2 cap, PO, Daily traMADol(traMADol 50 mg oral tablet), 50 mg= 1 tab, PO, q4h, PRN traMADol(traMADol 50 mg oral tablet), 50 mg= 1 tab, PO, q4h, PRN, 1 refills traZODone(traZODone 150 mg oral tablet), 1 tab, PO, qhs traZODone(traZODone 50 mg oral tablet), 50 mg= 1 tab, PO, qhs, 3 refills Allergies NKA Social History Smoking Status Never smoked cigarettes Alcohol - Low Risk Tobacco - Denies Tobacco Use Family History Cancer: Unknown. Crohn's disease..: Mother. Heart Failure: Father. Heart disease: Unknown. Heart failure: Sister. Health Status Family Member(s) Immunizations Vaccine Date Status SARS-CoV-2 mRNA (tojackien 5y-11y) 09/21/2022 Recorded pneumococcal 20-valent conjugate vaccine 08/25/2022 Recorded pneumococcal 20-valent conjugate vaccine 08/25/2022 Recorded Comments : 2022-08-28: Historical information-source unspecified influenza virus vaccine, inactivated 08/23/2022 Recorded SARS-CoV-2 (COVID-19) mRNA BNT-162b2 vax 01/06/2022 Recorded SARS-CoV-2 (COVID-19) mRNA BNT-162b2 vax 06/01/2021 Recorded Comments : 2021-07-12: Historical information-source unspecified SARS-CoV-2 (COVID-19) mRNA BNT-162b2 vax 12/21/2020 Recorded Comments : 2021-05-02: Historical information-source unspecified SARS-CoV-2 (COVID-19) mRNA BNT-162b2 vax 11/30/2020 Recorded Comments : 2021-05-02: Historical information-source unspecified zoster vaccine, inactivated 05/30/2018 Recorded Comments : 2021-05-02: Historical information-source unspecified zoster vaccine, inactivated 01/21/2018 Recorded pneumococcal 13-valent vaccine 02/23/2017 Given influenza virus vaccine, inactivated 08/04/2016 Given pneumococcal 23-valent vaccine 02/11/2016 Given zoster vaccine live 02/11/2016 Recorded tetanus/diphtheria/pertuss, acel (Tdap) 12/13/2015 Given Comments : Other : pneumococcal 23-valent vaccine 06/19/2011 Given tetanus/diphtheria/pertuss, acel (Tdap) 12/30/2009 Recorded Comments : 2021-05-02: Historical information-source unspecified diphtheria/tetanus/pertuss, acel (DTaP) 12/23/2009 Recorded Comments : 2021-05-02: Historical information-source unspecified Recommendations Health Maintenance Pending(in the next year) OverDue Medicare Annual Wellness Visit due05/02/22and every 1year Adult Influenza Vaccine due03/30/24and every 1year Due Adult Social Determinants of Health Screening due08/07/24Unknown Frequency Diabetes Nephropathy Management due08/07/24Unknown Frequency Falls Plan of Care due08/07/24Unknown Frequency Due In Future Diabetic Eye Exam not due until02/20/25and every 366day Diabetes Management A1c not due until04/17/25and every 366day Satisfied(in the past 1 year) Satisfied Body Mass Index on07/15/24.Satisfied by BANDAR Haley Kathryn Diabetes Management A1c on04/16/24.Satisfied by Contributor_system, [email or web address] Lipid Screening on09/17/23.Satisfied by Contributor_system, [email or web address] Electronic Signature on File CC: Jocelyne Cook MD [address] [place] [address] Electronically Reviewed/Signed by: Briana Hendrickson PA-C Author Signature Dt/Tm:08/07/2024 08:54 AM Division of Gastroenterology [facility] Patient Care team information Care Team Personnel Name: MD Sergio, Taiwo Bautista Position: Physician - Gastro Member Role: Lifetime Relationship Address: [address] [place] [address] [place] Name: MD Joey, Jocelyne Position: Physician - Family Med Member Role: Primary Care Provider Address: [address] [place] [address] [place] Care Team Related Persons Name: ROBERT TORRES"
[2024-08-15] MEDS: LEVOTHYROXINE SODIUM 112 MCG TABLET PO SCH (06:03)
[2024-08-15] MEDS: FINASTERIDE 5 MG TAB PO SCH (07:54)
[2024-08-15] MEDS: PANTOprazole 40 MG TAB PO SCH (07:54)
[2024-08-15] MEDS: CHOLECALCIFEROL 25 MCG (1000 UNITS) TAB PO SCH (07:54)
[2024-08-15] MEDS: UMECLIDINIUM BROMIDE 62.5MCG/BLISTER 7 PUFFS/INHALER INH SCH (07:54)
[2024-08-15 08:29] LABS: Total Protein 5.9 gm/dl (6.0-8.3)
[2024-08-15 08:30] LABS: Albumin Globulin Ratio 1.4 (0.9-2); Albumin Level 3.4 gm/dl (3.4-5.0); BUN Creatinine Ratio 17.9 (10-20); Bilirubin,Total 0.8 mg/dl (0.2-1.0); Calcium 8.3 mg/dl (8.6-10.3); Globulin 2.5 gm/dl (2.5-4.0)
[2024-08-15 08:46] LABS: Hematocrit (blood only) 37.1 % (42.0-52.0); Hemoglobin 12.1 g/dl (14.0-18.0); Mean Corpuscular Hemoglobin 28.6 pg (25.0-34.0); Mean Corpuscular Hgb Conc 32.6 g/dL (32.0-36.0); Mean Corpuscular Volume 87.7 fL (80.0-100.0); Mean Platelet Volume 10.9 fL (9.4-12.4); Platelet Count 387 K/uL (130-400); RDW Coefficient of Variation 16.4 % (11.5-14.5); RDW Standard Deviation 52.4 fL (36.4-46.3); Red Blood Count 4.23 M/uL (4.70-6.10); White Blood Count 19.27 K/ul (4.8-10.8)
[2024-08-15 09:10] LABS: ALC (manual) 0.19 K/uL (1.2-3.4); ANC (manual) 18.11 K/uL (1.4-6.5); Lymphocytes # (manual) 0.19 K/uL (1.2-3.4); Lymphocytes % (manual) 1 %; Metamyelocytes # (manual) 0.58 K/uL (0-0); Metamyelocytes % (manual) 3 %; Monocytes # (manual) 0.39 K/uL (0.11-0.59); Monocytes % (manual) 2 %; Neutrophils # (manual) 18.11 K/uL (1.40-6.50); Neutrophils % (manual) 94 %; Ovalocytes 1+; Polychromasia 1+
[2024-08-15] MEDS: LACTATED RINGER'S 500 ML IV ONE (09:43)
--- NOTE | 2024-08-15 09:48 | Hospitalist Progress Note ---
Date of Service August 15, 2024 Assessment & Plan (1) Crohns disease: (2) Diverticulitis: Plan #Crohns disease: In acure flare GI on board: Continue Solu-medrol 40mg IV TID Loperamide 2 mg BID Skyrizi given today(weekly dose was due for today) Moderate Dehydration: 1 L IV Bolus LR given--- 100 ml /hour maintenance ongoing. #SIRS; Possible source diverticulitis Improving trend WBC: 22 k----19 k Dehydrated this AM: Fluid bolus given--> Vitals Improved after bolus Ongoing Ceftriaxone/metronidazole Blood cultures: Pending # Diverticulitis: As per above CTAP: Mild acute Sigmoid Diverticulitis Clear liquid diet Plan Other Chronic issue:Stable VTE Prophylaxis - Lovenox 40mg SQ daily Diet - clear liquid Full Code Admission and Anticipated Discharge Date Admission Date: August 14, 2024 Supervising Physician Co-Signing Physician Notes Attending Physician Supervision Note: I independently interviewed and examined the patient and verified the alfredo history and physical, reviewed labs and image studies and agree with findings and care plan noted above. multiple loose stools since am. dizziness better but still present. some right side abdominal pain. vitals noted nad heent nc at mmm breathing unlabored no accessory muscles good effort skin no rashes no pallor or icterus neuro no focal deficits. Abdomen - mild right side abd tenderness. ND, BS+ SIRS - sec to below. continue IV fluid resuscitation. Definitive mx below. Crohn's flare - IV steroids added. continue IV hydration. Loperamide. Probable acute diverticulitis - IV abx. Lovenox. Subjective Mr. Boone is a 73 year old man with a history of Crohn's disease. He mentions he is having diarrhoea on and off since last 1 month, after changing his meds from Entyvio to skyrizi. He says he is bothered by diarrhoea rather than pain. No blood in stool, fever, SOB. chest pain, nausea, vomiting, headache. However he feels overall weak. His last apt with GI team was a month back. He had 4-5 BM , all clear liquid after admission and he could not sleep well because of that last night. Mentions he has chills however no fever. No allregy to any meds or foods known so far. Feels dizzi and weak overall. Review of Systems Review of Systems: As per HPI Physical Exam Physical Exam: Constitutional: Dehydrated looking, sunken eyes, mild distress HEENT: Atraumatic, Normocephalic, No conjunctival injection, flushed face. CVS: S1 S2 no murmur, Regular Rhythm, no LE edema Respiratory: BL equal air entry with NVBS. No rhonchi, wheezes, or crackles. No increased work of breathing GI: Obese abdomen, Mild tenderness in RLQ. Rebound tenderness+,Bowel sounds +, no features of peritonitis MSK: No gross deformities noted Skin: Warm, Dry, No rashes Neuro: Alert, Oriented to TPP, No Focal deficit Psych: Mood and Affect congruent, Cooperative on exam Results & Data Results & Data Vital Signs (Past 12 Hours) Vital Signs Temp Pulse Pulse Pulse Resp BP BP 08/15/24 07:57 36.9 C 111 H 20 93/55 L 08/15/24 04:04 36.9 C 70 18 114/62 08/14/24 23:27 36.7 C 71 16 110/67 08/14/24 21:53 71 Pulse Ox O2 Del Method 08/15/24 07:57 91 Room Air 08/15/24 04:04 95 Room Air 08/14/24 23:27 91 Room Air 08/14/24 21:53 Resident Activity Tracking Resident Involvement: Resident Care Provided Care Provided: Adult Hospital Medicine
--- NOTE | 2024-08-15 12:51 | History & Physical Report ---
Date of Service August 15, 2024 Assessment & Plan (1) Crohns disease: Plan: Pleasant man who has not done well with skyrizi and currently in a month long flare. I agree with using steroids to get him back into remission and then have him discuss with his primary GI about switching biologics. He is due his dose of skyrizi today--it can be administered here. May consider course of antibiotics if he doesn't respond to steroids over the weekend. Admission and Anticipated Discharge Date Admission Date: August 14, 2024 History of Present Illness Chief Complaint: Crohn's flare Primary Care Provider: Jocelyne Cook 73 year old man with a history of Crohn's disease who has been flaring for the past month or so. He has been having profuse diarrhea with this flare but not much in the way of pain. He was well managed on entyvio but got changed to skyrizi for abnormal labs. He does not feel skyrizi has been helping him as much as he wants. He is not seeing blood with his bowel movements. He denies recent antibiotic usage. Discussions have started about switching his meds in the office. His last fecal calprotectin was over 1999. Allergies Allergy/AdvReac Type Severity Reaction Status Date / Time No Known Allergies Allergy Verified 08/14/24 16:05 Home Medications Medication Instructions Recorded Confirmed Type ascorbic acid (vitamin C) 500 mg 500 mg PO QAM 09/01/18 08/14/24 History tablet (Vitamin C) cholecalciferol (vitamin D3) 25 1,000 unit PO QAM 09/01/18 08/14/24 History mcg (1,000 unit) chewable tablet (Vitamin D3) colestipol 1 gram tablet 1 g PO BID 09/01/18 08/14/24 History levothyroxine 112 mcg tablet 112 mcg PO QAM 09/01/18 08/14/24 History loperamide 2 mg capsule (Imodium 2 mg PO BID 09/01/18 08/14/24 History A-D) multivitamin 1 tab PO QAM 09/01/18 08/14/24 History clotrimazole-betamethasone 1 1 appln topical BID PRN Rash 04/30/19 08/14/24 History %-0.05 % topical cream mesalamine 0.375 gram 1.5 g PO QAM 04/30/19 08/14/24 History capsule,extended release 24 hr potassium chloride 10 mEq 10 meq PO QAM 09/10/22 08/14/24 History capsule,extended release omeprazole 20 mg capsule,delayed 20 mg PO QAM 02/03/23 08/14/24 History release rosuvastatin 10 mg tablet (Crestor) 10 mg PO HS 02/03/23 08/14/24 History finasteride 5 mg tablet 5 mg PO QAM 08/15/23 08/14/24 History trazodone 150 mg tablet 150 mg PO HS 08/15/23 08/14/24 History tiotropium bromide 2.5 2 inh inhalation QAM #12 grams 10/17/23 08/14/24 Rx mcg/actuation mist for inhalation (Spiriva Respimat) albuterol sulfate 90 mcg/actuation 1 puff inhalation Q6H PRN 11/09/23 08/14/24 Rx aerosol inhaler (ProAir HFA) Shortness Of Breath #8.5 grams tamsulosin 0.4 mg capsule (Flomax) 0.8 mg (2 x 0.4 mg) PO HS BPH #180 02/20/24 08/14/24 Rx caps risankizumab-rzaa 150 mg/mL 0 mg INJ UD ##0 03/05/24 08/14/24 History subcutaneous pen injector (Skyrizi) budesonide-formoterol HFA 160 2 inh inhalation BID #10.2 grams 05/05/24 08/14/24 Rx mcg-4.5 mcg/actuation aerosol inhaler (Symbicort) famotidine 20 mg tablet 20 mg PO HS 06/29/24 08/14/24 History benralizumab 30 mg/mL subcutaneous See Rx Instructions .Route 06/30/24 08/14/24 Rx syringe (Fasenra) .COMPLEX #1 ea ondansetron 4 mg disintegrating 4 mg PO Q6H PRN nausea and 08/01/24 08/14/24 Rx tablet vomiting #10 tabs Past Med/Surg History Problem List Hyperkalemia Sepsis Nausea, vomiting, and diarrhea (Acute) Cholelithiasis (Acute) Elevated lactic acid level (Acute) Leukocytosis (Acute) Diverticulitis (Acute) Nausea and vomiting (Acute) Diarrhea (Acute) Acute dehydration (Acute) RUQ abdominal pain (Acute) Pleuritic chest pain (Acute) Crohns disease Acute cholecystitis Edema of left lower extremity Acute hypoxemic respiratory failure Small bowel obstruction 08/2022 - treated at [facility] [place] with NG Tube - no surgery. Screening PSA (prostate specific antigen) Bibasilar crackles BPH loc w urin obs/LUTS Nocturia Hypoxia (Acute) Acute respiratory distress Bronchiectasis (Acute) Sinus tachycardia seen on quality assurance monitor chassis S/P bronchoscopy with bronchoalveolar lavage Injury of left foot (Acute) Influenza A Hyponatremia Fall from ladder (Acute) Dyspnea on exertion COPD (chronic obstructive pulmonary disease) (Acute) Eosinophilia (Chronic) ADELAIDA (obstructive sleep apnea) pt denies Crohn's disease in remission currently having a flare- following with Dr Schmitz Pneumonia hx ~2017, where his breathing from there had worsened and [place] [facility] [place]. Severe persistent asthma Hypertension Hypothyroid Diastolic heart failure Medical History History of Crohn's disease Right-sided chest pain History of esophageal dilatation (~2002) History of melanoma COPD (chronic obstructive pulmonary disease) inhaler/nebulizer prn Surgical History History of cardiac catheterization 03/2017 @ [facility] with Dr. Teague--NO stents History of esophagogastroduodenoscopy (EGD) (~2002) Hx of vasectomy History of melanoma excision above right eye History of tooth extraction all lower teeth/partial upper History of tonsillectomy History of bilateral cataract extraction History of bronchoscopy multiple History of colonoscopy with polypectomy Family History Other Hypertension No family history of adverse response to anesthesia No significant family history Denies family history of Myocardial infarction Stroke Social History Smoking Status: Former smoker Tobacco Type: Cigarettes Age Started Using Tobacco: 17; Age Quit Using Tobacco: 50; Cigarettes Per Day: pack a day; Smoking End Date: 2000; Second Hand Exposure: No; Do You Dip or Chew Tobacco: No; Hx Alcohol Use: Yes Alcohol type: hard liquor Alcohol Intake Frequency Comment: 1x per month, 1-3 drinks per sitting Hx Substance Use: No Preferred Language: Kiswahili Communication Ability: Effective Visual Impairment: No Limitations Hearing Ability: Normal Engineering Secretary Required: No Beliefs That Will Affect Care: None Current Living Situation: Spouse Current Living Situation Comment: House with Feels Safe at Home: Yes Assistive Devices: None Review of Systems All systems reviewed & are unremarkable except as noted in HPI & below Physical Exam Constitutional: WD/WN, vitals as above Neck: trachea midline, no thyromegaly Respiratory: normal respiratory effort, lungs clear to auscultation Cardiovascular: RRR, no murmur, no edema Gastrointestinal (Abdomen): normal bowel sounds, soft, nontender, no hepatosplenomegaly ASA Classification ASA ASA3 Results & Data Vital Signs (Past 12 Hours) Vital Signs Temp Pulse Pulse Pulse Resp BP BP 08/15/24 11:02 79 106/62 08/15/24 10:15 88 102/48 L 08/15/24 07:57 36.9 C 111 H 20 93/55 L 08/15/24 07:30 104 H 08/15/24 04:04 36.9 C 70 18 114/62 Pulse Ox O2 Del Method 08/15/24 11:02 94 Room Air 08/15/24 10:15 08/15/24 07:57 91 Room Air 08/15/24 07:30 08/15/24 04:04 95 Room Air Code Status & VTE Plan VTE Prophylaxis Plan VTE Prophylaxis will be ordered: Yes
[2024-08-15] MEDS: LACTATED RINGER'S 1,000 ML IV SCH (13:13)
[2024-08-15] MEDS: [UNRECOGNIZED DRUG - REMARK] SQ SCH (15:11)
[2024-08-15] MEDS ORDERED: [UNRECOGNIZED DRUG - REMARK] SQ SCH (16:00)
[2024-08-15] MEDS: MESALAMINE ER 0.375 GM PO SCH (16:08)
[2024-08-16 06:23] LABS: Hemoglobin 11.2 g/dl (14.0-18.0); Mean Corpuscular Hemoglobin 28.3 pg (25.0-34.0); Mean Corpuscular Volume 88.4 fL (80.0-100.0); Mean Platelet Volume 10.9 fL (9.4-12.4); Platelet Count 325 K/uL (130-400); RDW Coefficient of Variation 16.6 % (11.5-14.5); RDW Standard Deviation 54.3 fL (36.4-46.3); Red Blood Count 3.96 M/uL (4.70-6.10); White Blood Count 16.88 K/ul (4.8-10.8)
[2024-08-16 06:36] LABS: Albumin Globulin Ratio 1.3 (0.9-2); BUN Creatinine Ratio 19.4 (10-20); Bilirubin,Total 0.7 mg/dl (0.2-1.0); Calcium 8.2 mg/dl (8.6-10.3); Creatinine Clr Calc Pharmacy 79.8 ml/min; Globulin 2.4 gm/dl (2.5-4.0); Potassium 3.7 mmol/L (3.5-5.1); Total Protein 5.4 gm/dl (6.0-8.3)
[2024-08-16 06:44] LABS: Basophils # (auto) 0.02 K/uL (0.00-0.20); Basophils % (auto) 0.1 %; Immature Granulocytes # (auto) 0.22 K/uL (0.01-0.20); Immature Granulocytes % (auto) 1.3 %; Lymphocytes # (auto) 0.16 K/uL (1.20-3.40); Lymphocytes % (auto) 0.9 %; Neutrophils # (auto) 15.98 K/uL (1.40-6.50); Neutrophils % (auto) 94.7 %; Polychromasia 1+; Toxic Vacuolation 1+
[2024-08-16 06:52] LABS: Toxic Vacuolation 2+
[2024-08-16 07:02] LABS: Toxic Vacuolation 2+
--- NOTE | 2024-08-16 09:06 | Gastroenterology Progress Note ---
Date of Service August 16, 2024 Assessment & Plan (1) Crohns disease: Plan: He seems to be better. Will advance diet. Hopefully home soon Admission and Anticipated Discharge Date Admission Date: August 14, 2024 Subjective He is feeling better today. No diarrhea since Midnight. Wants to advance diet Physical Exam Physical Exam: He looks well Results & Data Vital Signs (Past 12 Hours) Vital Signs Temp Pulse Pulse Resp BP BP Pulse Ox 08/16/24 07:38 36.7 C 66 18 101/63 93 08/16/24 07:32 72 08/16/24 03:31 37.6 C H 83 16 110/62 94 08/15/24 23:42 08/15/24 22:36 36.3 C L 65 18 130/61 92 08/15/24 21:50 66 O2 Del Method 08/16/24 07:38 Room Air 08/16/24 07:32 08/16/24 03:31 Room Air 08/15/24 23:42 Room Air 08/15/24 22:36 Room Air 08/15/24 21:50
--- NOTE | 2024-08-16 09:24 | Hospitalist Progress Note ---
Date of Service August 16, 2024 Assessment & Plan (1) Crohns disease: (2) Diverticulitis: Plan #Crohns disease: Admitted for acure flare Much improved today GI on board: Continue Solu-medrol 40mg IV TID/ Loperamide 2 mg BID Home meds contd: mesalamine, risankizumab Electrolytes WNL Proceed Normal diet today Stop IV fluids. # Diverticulitis: Presented in SIRS-- Improved now; pain improving as well Ceftriaxone and Metronidazole ongoing Diet: Normal today Plan VTE Prophylaxis - Lovenox 40mg SQ daily Diet - Normal Full Code Admission and Anticipated Discharge Date Admission Date: August 14, 2024 Supervising Physician Co-Signing Physician Notes Attending Physician Supervision Note: I independently interviewed and examined the patient and verified the alfredo history and physical, reviewed labs and image studies and agree with findings and care plan noted above. diarrhea improved. feeling well rested. dizziness resolved. right abdomen pain better. vitals noted nad heent nc at mmm breathing unlabored no accessory muscles good effort skin no rashes no pallor or icterus neuro no focal deficits. Abdomen - minimal right side abd tenderness. ND, BS+ SIRS - sec to below. resolved. s/p IVF resuscitation. Definitive mx below. Crohn's flare - continue IV steroids. Loperamide. Advance diet. Probable acute diverticulitis - IV abx. Lovenox. Subjective Patient looks and feel lot better today. No diarrhoea since midnight. Had 8-9 Bowel movements yesterday in daytime. He slept well after midnight. Says abdominal pain is better than yesterday. No fever, chest pain, Normal bladder habit. Review of Systems Review of Systems: As per HPI Physical Exam Physical Exam: Constitutional: Well looking, No sunken eyes, No distress HEENT: Atraumatic, Normocephalic, No conjunctival injection. CVS: S1 S2 no murmur, Regular Rhythm, no LE edema Respiratory: BL equal air entry with NVBS. No rhonchi, wheezes, or crackles. No increased work of breathing GI: Obese abdomen, Mild tenderness in RLQ. No rebound tenderness,Bowel sounds + MSK: No gross deformities noted Skin: Warm, Dry, No rashes Neuro: Alert, Oriented to TPP, No Focal deficit Psych: Mood and Affect congruent, Cooperative on exam Results & Data Results & Data Vital Signs (Past 12 Hours) Vital Signs Temp Pulse Pulse Resp BP BP Pulse Ox 08/16/24 07:38 36.7 C 66 18 101/63 93 08/16/24 07:32 72 08/16/24 03:31 37.6 C H 83 16 110/62 94 08/15/24 23:42 08/15/24 22:36 36.3 C L 65 18 130/61 92 08/15/24 21:50 66 O2 Del Method 08/16/24 07:38 Room Air 08/16/24 07:32 08/16/24 03:31 Room Air 08/15/24 23:42 Room Air 08/15/24 22:36 Room Air 08/15/24 21:50 Resident Activity Tracking Resident Involvement: Resident Care Provided Care Provided: Adult Hospital Medicine
[2024-08-16] MEDS: ALBUTEROL HFA 8 GM INHALER INH PRN (14:34)
[2024-08-17 06:19] LABS: Hematocrit (blood only) 35.1 % (42.0-52.0); Hemoglobin 11.1 g/dl (14.0-18.0); Mean Corpuscular Hgb Conc 31.6 g/dL (32.0-36.0); Mean Corpuscular Volume 88.4 fL (80.0-100.0); Mean Platelet Volume 10.6 fL (9.4-12.4); Platelet Count 275 K/uL (130-400); RDW Coefficient of Variation 16.5 % (11.5-14.5); RDW Standard Deviation 54.2 fL (36.4-46.3); Red Blood Count 3.97 M/uL (4.70-6.10); White Blood Count 14.88 K/ul (4.8-10.8)
[2024-08-17] MEDS: BENZONATATE 100 MG CAPSULE PO PRN (06:40)
[2024-08-17 06:42] LABS: Basophils # (auto) 0.02 K/uL (0.00-0.20); Basophils % (auto) 0.1 %; Immature Granulocytes # (auto) 0.14 K/uL (0.01-0.20); Immature Granulocytes % (auto) 0.9 %; Lymphocytes # (auto) 0.21 K/uL (1.20-3.40); Lymphocytes % (auto) 1.4 %; Monocytes # (auto) 0.72 K/uL (0.11-0.59); Monocytes % (auto) 4.8 %; Neutrophils # (auto) 13.79 K/uL (1.40-6.50); Neutrophils % (auto) 92.8 %; Polychromasia 1+
[2024-08-17 06:46] LABS: BUN Creatinine Ratio 22.7 (10-20); Calcium 8.1 mg/dl (8.6-10.3); Creatinine Clr Calc Pharmacy 89.9 ml/min; Potassium 3.9 mmol/L (3.5-5.1)
--- NOTE | 2024-08-17 07:32 | Gastroenterology Progress Note ---
Date of Service August 17, 2024 Assessment & Plan (1) Crohns disease: Plan: It seems like his gut wasn't quite ready for regular food. I think we should leave him on his regular diet though and see how he does through the day. I told him he was ready to go home when he could tolerate his stool frequency. I want to at least have him see how he does through the day today though. Admission and Anticipated Discharge Date Admission Date: August 14, 2024 Subjective Regular diet has fired up his diarrhea again. Four stools since 2:30 am. Otherwise he s feeling well. Physical Exam Physical Exam: He looks comfortable Constitutional: WD/WN, vitals as above Results & Data Vital Signs (Past 12 Hours) Vital Signs Temp Pulse Pulse Resp BP BP Pulse Ox 08/17/24 07:26 36.5 C 54 L 18 117/72 96 08/17/24 07:13 53 L 08/17/24 03:00 36.6 C 78 22 125/56 L 95 08/16/24 22:40 08/16/24 22:39 36.5 C 61 18 113/48 L 94 08/16/24 22:25 71 18 95 08/16/24 21:50 57 L 08/16/24 20:10 36.3 C L 69 18 124/63 95 O2 Del Method 08/17/24 07:26 Room Air 08/17/24 07:13 08/17/24 03:00 Room Air 08/16/24 22:40 Room Air 08/16/24 22:39 Room Air 08/16/24 22:25 Room Air 08/16/24 21:50 08/16/24 20:10 Room Air
--- NOTE | 2024-08-17 08:32 | Hospitalist Progress Note ---
Date of Service August 17, 2024 Assessment & Plan (1) Crohns disease: (2) Diverticulitis: Plan #Crohns disease: Admitted for acure flare Diarrhoea restarted after advanced diet. Vitals: Stable P: 54/min, BP: 117/72); Sinus Bradycardia GI on board: Continue Solu-medrol 40mg IV TID/ Loperamide 2 mg BID Home meds contd: mesalamine, risankizumab Electrolytes WNL Observe food tolerance today and decide # Diverticulitis: Presented in SIRS-- Improved now; pain improving as well IV Ceftriaxone and Metronidazole: D3 WBC trending down: 14.88------< 22K Plan VTE Prophylaxis - Lovenox 40mg SQ daily Diet - Normal Full Code Admission and Anticipated Discharge Date Admission Date: August 14, 2024 Supervising Physician Co-Signing Physician Notes Attending Physician Supervision Note: I independently interviewed and examined the patient and verified the alfredo history and physical, reviewed labs and image studies and agree with findings and care plan noted above. loose stool again after starting meals. continue to otherwise feel better. right abdomen pain better. vitals noted nad heent nc at mmm breathing unlabored no accessory muscles good effort skin no rashes no pallor or icterus neuro no focal deficits. No abdominal tenderness. Crohn's flare - continue IV steroids. Loperamide. continue Advanced diet. -Incident Coordinator consult added Acute diverticulitis - IV abx. SIRS - resolved. s/p IVF resuscitation. . Lovenox. Subjective Today morning Heebner look fine, however his diarrhoea restarted around 2 o'clock in the morning, he had 4-5 episodes since then. Its still watery with no blood, no fever. He does not feel dizznessi like before. He is eating regular diet from cafeteria. Review of Systems Review of Systems: As per HPI Physical Exam Physical Exam: Constitutional: Well looking, No sunken eyes, No distress HEENT: Atraumatic, Normocephalic, No conjunctival injection. CVS: S1 S2 no murmur, Regular Rhythm, no LE edema Respiratory: BL equal air entry with NVBS. No rhonchi, wheezes, or crackles. No increased work of breathing GI: Obese abdomen, Mild tenderness in RLQ. No rebound tenderness,Bowel sounds + MSK: No gross deformities noted Skin: Warm, Dry, No rashes Neuro: Alert, Oriented to TPP, No Focal deficit Psych: Mood and Affect congruent, Cooperative on exam Results & Data Results & Data Vital Signs (Past 12 Hours) Vital Signs Temp Pulse Pulse Resp BP BP Pulse Ox 08/17/24 07:26 36.5 C 54 L 18 117/72 96 08/17/24 07:13 53 L 08/17/24 03:00 36.6 C 78 22 125/56 L 95 08/16/24 22:40 08/16/24 22:39 36.5 C 61 18 113/48 L 94 08/16/24 22:25 71 18 95 08/16/24 21:50 57 L O2 Del Method 08/17/24 07:26 Room Air 08/17/24 07:13 08/17/24 03:00 Room Air 08/16/24 22:40 Room Air 08/16/24 22:39 Room Air 08/16/24 22:25 Room Air 08/16/24 21:50 Resident Activity Tracking Resident Involvement: Resident Care Provided Care Provided: Adult Hospital Medicine
[2024-08-18 07:32] LABS: Hematocrit (blood only) 35.8 % (42.0-52.0); Hemoglobin 11.4 g/dl (14.0-18.0); Mean Corpuscular Hemoglobin 28.3 pg (25.0-34.0); Mean Corpuscular Hgb Conc 31.8 g/dL (32.0-36.0); Mean Corpuscular Volume 88.8 fL (80.0-100.0); Mean Platelet Volume 11.3 fL (9.4-12.4); Platelet Count 273 K/uL (130-400); RDW Coefficient of Variation 16.2 % (11.5-14.5); RDW Standard Deviation 53.4 fL (36.4-46.3); Red Blood Count 4.03 M/uL (4.70-6.10); White Blood Count 16.94 K/ul (4.8-10.8)
[2024-08-18 07:47] LABS: BUN Creatinine Ratio 22.8 (10-20); Creatinine Clr Calc Pharmacy 86.4 ml/min; Potassium 3.8 mmol/L (3.5-5.1)
[2024-08-18 07:56] LABS: Basophils # (auto) 0.02 K/uL (0.00-0.20); Basophils % (auto) 0.1 %; Immature Granulocytes # (auto) 0.13 K/uL (0.01-0.20); Immature Granulocytes % (auto) 0.8 %; Lymphocytes # (auto) 0.35 K/uL (1.20-3.40); Lymphocytes % (auto) 2.1 %; Monocytes # (auto) 0.91 K/uL (0.11-0.59); Monocytes % (auto) 5.4 %; Neutrophils # (auto) 15.53 K/uL (1.40-6.50); Neutrophils % (auto) 91.6 %; Toxic Vacuolation 1+
--- NOTE | 2024-08-18 08:58 | Hospitalist Progress Note ---
Date of Service August 18, 2024 Assessment & Plan (1) Crohns disease: (2) Diverticulitis: Plan #Crohns disease: Admitted for acute flare Diarrhoea persistent after advanced diet. Vitals: Stable P: 60/min, BP: 134/72); Sinus Bradycardia GI on board: Continue Solu-medrol 40mg IV TID Home meds contd: mesalamine, risankizumab Electrolytes WNL Loperamide increased from 2 mg BID to QID. Metamucil added today; Reassess how it works C diff re-ordered today. # Diverticulitis: Presented in SIRS-- Improved now; pain improving as well IV Ceftriaxone and Metronidazole: D4 WBC:16.94---< 14.88------< 22K Plan VTE Prophylaxis - Lovenox 40mg SQ daily Diet - Normal Full Code Admission and Anticipated Discharge Date Admission Date: August 14, 2024 Supervising Physician Co-Signing Physician Notes I personally examined the patient and verified all alfredo points of history and exam, discussed case, and agree with decision making with Dr Silver feeling better overall except still feels that he's having enough diarrhea that staying hydrated as outpt would be difficult. will d/w primary GI about changing biologic vitals noted nad heent nc at mmm breathing unlabored no accessory muscles good effort skin no rashes no pallor or icterus neuro no focal deficits. Crohn's flare - -this is improving -reduce IV steroid dose -change biologic diarrhea -multiple factors -improving but not enough -lomotil/fiber Acute diverticulitis - -improving nicely -finish antibiotics -7 days total SIRS - resolved. s/p IVF resuscitation. . Lovenox. Subjective Today morning Heebner look fine, however his diarrhoea has been persistent since last AM. He ran almost 4-5 times after 2 am this AM. Had more frequency yesterday afternoon. Its still watery with no blood, no fever. He does not feel dizzi like before. He is eating low fibre diet from cafeteria. Review of Systems Review of Systems: As per HPI Physical Exam Physical Exam: Constitutional: Well looking, No sunken eyes, No distress HEENT: Atraumatic, Normocephalic, No conjunctival injection. CVS: S1 S2 no murmur, Regular Rhythm, no LE edema Respiratory: BL equal air entry with NVBS. No rhonchi, wheezes, or crackles. No increased work of breathing GI: Obese abdomen, Mild tenderness in RLQ. No rebound tenderness,Bowel sounds + MSK: No gross deformities noted Skin: Warm, Dry, No rashes Neuro: Alert, Oriented to TPP, No Focal deficit Psych: Mood and Affect congruent, Cooperative on exam Results & Data Results & Data Vital Signs (Past 12 Hours) Vital Signs Temp Pulse Pulse Resp BP Pulse Ox O2 Del Method 08/18/24 07:28 36.5 C 60 16 134/72 93 Room Air 08/18/24 02:51 36.5 C 58 L 16 127/64 93 Room Air 08/17/24 23:09 36.6 C 48 L 16 106/56 L 96 Room Air 08/17/24 22:13 Room Air 08/17/24 21:35 48 L Resident Activity Tracking Resident Involvement: Resident Care Provided Care Provided: Adult Hospital Medicine
[2024-08-18] MEDS: LOPERAMIDE HCL 2 MG CAP PO SCH (12:06)
[2024-08-18] MEDS: PSYLLIUM or GUAR GUM FIBER 4GM PACKET PO SCH (13:06)
--- NOTE | 2024-08-18 14:20 | Gastroenterology Progress Note ---
Date of Service August 18, 2024 Assessment & Plan (1) Crohns disease: Plan: Interesting that he has no pain but just has diarrhea. Not typical for small bowel Crohn's. Agree with recheck c. diff. Agree with increase in colestipol. I do think he needs to change biologic and he is going to discuss with his primary GI Admission and Anticipated Discharge Date Admission Date: August 14, 2024 Subjective Feels well. Still with diarrhea though. 7 times in 12 hours and just watery Physical Exam Physical Exam: He looks fine Constitutional: WD/WN, vitals as above Results & Data Vital Signs (Past 12 Hours) Vital Signs Temp Pulse Resp BP Pulse Ox O2 Del Method 08/18/24 10:58 36.3 C L 61 16 120/62 94 Room Air 08/18/24 07:28 36.5 C 60 16 134/72 93 Room Air 08/18/24 02:51 36.5 C 58 L 16 127/64 93 Room Air
--- NOTE | 2024-08-18 17:30 | Billing Data ---
Date of Service August 18, 2024 Coding Level of Care Code 37872 SUB INP/OBS CARE
[2024-08-19] MEDS: ACETAMINOPHEN 325 MG TAB PO PRN (00:07)
[2024-08-19] MEDS: LIDOCAINE 5% 1 PATCH TD STA (02:16)
[2024-08-19 03:06] VITALS: RESP 18
[2024-08-19 07:37] LABS: Hematocrit (blood only) 37.3 % (42.0-52.0); Mean Corpuscular Hgb Conc 32.2 g/dL (32.0-36.0); Mean Corpuscular Volume 87.1 fL (80.0-100.0); Mean Platelet Volume 11.4 fL (9.4-12.4); Nucleated RBC # (auto) 0.03 K/uL (0.00-0.12); Nucleated RBC % (auto) 0.2 %; Platelet Count 237 K/uL (130-400); RDW Coefficient of Variation 16.1 % (11.5-14.5); RDW Standard Deviation 51.3 fL (36.4-46.3); Red Blood Count 4.28 M/uL (4.70-6.10); White Blood Count 15.66 K/ul (4.8-10.8)
[2024-08-19] MEDS: COLESTIPOL HCL 1 GM TAB PO SCH (07:50)
[2024-08-19] MEDS: methylPREDNISolone 40 MG in SYRINGE 0 ML IV SCH (07:51)
[2024-08-19 07:52] LABS: BUN Creatinine Ratio 21.2 (10-20); Calcium 7.9 mg/dl (8.6-10.3); Potassium 3.6 mmol/L (3.5-5.1)
[2024-08-19 08:01] LABS: Basophils # (auto) 0.04 K/uL (0.00-0.20); Basophils % (auto) 0.3 %; Echinocytes 1+; Immature Granulocytes # (auto) 0.16 K/uL (0.01-0.20); Lymphocytes # (auto) 0.47 K/uL (1.20-3.40); Monocytes # (auto) 0.66 K/uL (0.11-0.59); Monocytes % (auto) 4.2 %; Neutrophils # (auto) 14.33 K/uL (1.40-6.50); Neutrophils % (auto) 91.5 %; Toxic Vacuolation 2+
--- NOTE | 2024-08-19 10:31 | Hospitalist Progress Note ---
Date of Service August 19, 2024 Assessment & Plan (1) Crohns disease: (2) Diverticulitis: Plan #Crohns disease: Admitted for acute flare Diarrhoea persistent after advanced diet, but better today. Vitals: Stable P: 56/min, BP: 54/77); Sinus Bradycardia GI on board: Continue Solu-medrol 40mg IV TID Home meds contd: mesalamine, risankizumab Electrolytes WNL Loperamide increased from 2 mg QID. Metamucil added Repeat C diff( 08/19): Negative # Diverticulitis: Presented in SIRS-- Improved now; pain improving as well IV Ceftriaxone and Metronidazole: D5 WBC:15.66( today)-----< 22K Plan VTE Prophylaxis - Lovenox 40mg SQ daily Diet - Normal Full Code Admission and Anticipated Discharge Date Admission Date: August 14, 2024 Subjective Mr. Boone feels better today. He is not lethargic or dizzy, however had 4 bouts of diarrhoea since 2 am this morning. Still watery, not firm, no blood. Eating normal modified diet. Normal bowel. Review of Systems Review of Systems: As per HPI Physical Exam Physical Exam: Constitutional: Well looking, No distress HEENT: Atraumatic, Normocephalic, No conjunctival injection. CVS: S1 S2 no murmur, Regular Rhythm, no LE edema Respiratory: BL equal air entry with NVBS. No rhonchi, wheezes, or crackles. No increased work of breathing GI: Obese abdomen, Mild tenderness in RLQ. No rebound tenderness,Bowel sounds + MSK: No gross deformities noted Skin: Warm, Dry, No rashes Neuro: Alert, Oriented to TPP, No Focal deficit Psych: Mood and Affect congruent, Cooperative on exam Results & Data Results & Data Vital Signs (Past 12 Hours) Vital Signs Temp Pulse Pulse Resp BP BP Pulse Ox 08/19/24 07:48 08/19/24 07:37 36.5 C 56 L 18 154/77 H 94 08/19/24 07:22 56 L 08/19/24 03:06 36.7 C 87 18 105/60 93 08/18/24 23:37 08/18/24 23:08 36.5 C 53 L 14 161/80 H 96 08/18/24 22:50 77 16 97 O2 Del Method 08/19/24 07:48 Room Air 08/19/24 07:37 Room Air 08/19/24 07:22 08/19/24 03:06 Room Air 08/18/24 23:37 Room Air 08/18/24 23:08 Room Air 08/18/24 22:50 Room Air Resident Activity Tracking Resident Involvement: Resident Care Provided Care Provided: Adult Hospital Medicine
[2024-08-19 10:39] VITALS: PULSE 68; TEMP 97.9; O2SAT 93
[2024-08-19 11:59] VITALS: BP 105/60
--- NOTE | 2024-08-19 12:23 | Billing Data ---
Date of Service August 19, 2024 Coding Level of Care Code 92528 IN/OBS DISCH 30 MIN/LESS
--- NOTE | 2024-08-19 12:23 | Billing Data ---
Date of Service August 19, 2024 Coding Level of Care Code 46292 IN/OBS DISCH 30 MIN/LESS
--- NOTE | 2024-08-19 12:23 | Discharge Summary ---
Discharge Summary Date of Service August 19, 2024 Principal Dx & Hospital Course #1 = Principal Diagnosis (1) Crohns disease: (2) Diverticulitis: Plan #Crohns disease: Admitted for possible acute flare -GI skeptical about how much of this is truly crohn's flare - but all in agreement baseline management needs revisited -- given not entirely clear it is crohn's flare and diarrhea didn't change dramatically with IV steroids inpatient, refraining from prolonged steroid taper given that it doesn't appear benefit would outweigh the risk; at the same time, since crohn's on ddx for this and may have been at play to at least a degree - giving a shorter steroid taper, close PCP and GI f/u -as far as diarrhea - improved some, pt feels like he can manage at home (unclear if it's any worse now than what he's been dealing with for a while even prior to admission) - home on colestipol, metamucil, loperamide --> outpt PCP and GI f/u (and hopefully with change in crohn's regimen then these can be wean ed). # Diverticulitis: Presented in SIRS-- Improved now; safe/stable for home IV Ceftriaxone and Metronidazole: - finish out 7 days PO abx home today, close PCP, GI f/u. short course of steroids, abx. Notes For Next Care Provider Medication Changes From Visit steroid taper, finishing 7 days abx, short term addition of colestipol, metamucil, loperamide Admission HPI Per Admitting Provider 73 year old man with a history of Crohn's disease who has been flaring for the past month or so. He has been having profuse diarrhea with this flare but not much in the way of pain. He was well managed on entyvio but got changed to skyrizi for abnormal labs. He does not feel skyrizi has been helping him as much as he wants. He is not seeing blood with his bowel movements. He denies recent antibiotic usage. Discussions have started about switching his meds in the office. His last fecal calprotectin was over 1999. Discharge Exam gen aao [facility] heent nc at mmm breathing unlabored no accessory muscles good effort skin no rashes no pallor or icterus neuro no focal deficits abd soft nd nt no guarding/rebound Updated Medication List Medication Instructions Recorded Confirmed Type ascorbic acid (vitamin C) 500 mg 500 mg PO QAM 09/01/18 08/14/24 History tablet (Vitamin C) cholecalciferol (vitamin D3) 25 1,000 unit PO QAM 09/01/18 08/14/24 History mcg (1,000 unit) chewable tablet (Vitamin D3) colestipol 1 gram tablet 1 g PO BID 09/01/18 08/14/24 History levothyroxine 112 mcg tablet 112 mcg PO QAM 09/01/18 08/14/24 History loperamide 2 mg capsule (Imodium 2 mg PO BID 09/01/18 08/14/24 History A-D) multivitamin 1 tab PO QAM 09/01/18 08/14/24 History clotrimazole-betamethasone 1 1 appln topical BID PRN Rash 04/30/19 08/14/24 History %-0.05 % topical cream mesalamine 0.375 gram 1.5 g PO QAM 04/30/19 08/14/24 History capsule,extended release 24 hr potassium chloride 10 mEq 10 meq PO QAM 09/10/22 08/14/24 History capsule,extended release omeprazole 20 mg capsule,delayed 20 mg PO QAM 02/03/23 08/14/24 History release rosuvastatin 10 mg tablet (Crestor) 10 mg PO HS 02/03/23 08/14/24 History finasteride 5 mg tablet 5 mg PO QAM 08/15/23 08/14/24 History trazodone 150 mg tablet 150 mg PO HS 08/15/23 08/14/24 History tiotropium bromide 2.5 2 inh inhalation QAM #12 grams 10/17/23 08/14/24 Rx mcg/actuation mist for inhalation (Spiriva Respimat) albuterol sulfate 90 mcg/actuation 1 puff inhalation Q6H PRN 11/09/23 08/14/24 Rx aerosol inhaler (ProAir HFA) Shortness Of Breath #8.5 grams tamsulosin 0.4 mg capsule (Flomax) 0.8 mg (2 x 0.4 mg) PO HS BPH #180 02/20/24 08/14/24 Rx caps risankizumab-rzaa 150 mg/mL 0 mg INJ UD ##0 03/05/24 08/14/24 History subcutaneous pen injector (Skyrizi) budesonide-formoterol HFA 160 2 inh inhalation BID #10.2 grams 05/05/24 08/14/24 Rx mcg-4.5 mcg/actuation aerosol inhaler (Symbicort) famotidine 20 mg tablet 20 mg PO HS 06/29/24 08/14/24 History ondansetron 4 mg disintegrating 4 mg PO Q6H PRN nausea and 08/01/24 08/14/24 Rx tablet vomiting #10 tabs benralizumab 30 mg/mL subcutaneous See Rx Instructions .Route 08/18/24 Rx syringe (Fasenra) .COMPLEX #1 ea cefixime 400 mg capsule 400 mg PO DAILY 2 days #2 caps 08/19/24 Rx colestipol 1 gram tablet 2 g (2 x 1 gram) PO BID PRN 08/19/24 Rx DIarrhoea 15 days #60 tabs loperamide 2 mg capsule 2 mg PO QID Diarrhoea 7 days #28 08/19/24 Rx caps methylprednisolone 8 mg tablet See Rx Instructions .Route 08/19/24 Rx .COMPLEX #10 tabs metronidazole 500 mg tablet 500 mg PO BID 2 days #4 tabs 08/19/24 Rx Hospital Stay Data Consultations 08/14/24 15:09 ED Decision to Admit Stat 08/14/24 15:41 Consult Gastroenterology Routine Diagnostic Imagining Performed 08/14/24 13:37 CT Abd and Pelvis [CT abd pelvis IV con only] Stat Pending Results Patient Have Any Pending Studies at Discharge: No Discharge Instructions Given to Patient (Per Discharging Provider) You were admitted to the hospital for Acute Flare of Crohn's disease. You were treated with Antibiotics, anti-diarrheal medicine Steroids, fibre supplements and IV fluids. Diet was modified,at hospital stay. Include bananas, applesauce, and easily digestible foods like rice, potatoes. A discharge summary will be sent to your primary care physician to ensure continuity of care. Please bring this discharge summary with you to your next office appointment so that your provider can review it at that time. Follow-up appointments: Make a follow-up appointment with your PCP within the next week. It is very important that you follow up with them shortly after discharge from the hospital. F/U with GI team regularly. Keep all your follow-up appointments as already scheduled. If you cannot make an appointment, notify your provider. Medications: Your medication list has been reviewed and reconciled upon discharge to ensure accuracy and continuity of care. An updated list of all your medications is included with your hospital discharge paperwork. Please review this list closely, and make note of any changes. We sent a new medication called Metamucil/ Cefixime / Metronidazole/ Methy lprednisolone/ colestopol to your pharmacy. Take them as per instruction. If you have any issues filling these prescriptions, please call [phone] and ask to leave a message for Dr. Maday Silver. Take your medications as instructed; do not skip a dose of your medicines. Make sure all of your doctors know every medicine you are taking (including alfr-zup-owjbkda medicines, vitamins, and supplements). Call your primary care provider before taking any new medicines (including over- the-counter medicines, vitamins, and supplements), because some of these may interact with your current medications, or may make your symptoms worse. Tell your primary care provider if you cannot afford your medications. CONTACT YOUR PRIMARY CARE PROVIDER if you experience any of the following: Worsening of symptoms Fever, chills, or fatigue Difficulty following your treatment plan, or difficulty taking medications CALL 911 OR GO TO THE EMERGENCY DEPARTMENT if you experience any of the followin g: Sudden, severe abdominal pain or nausea/vomiting Severe chest pain, or chest pain that radiates (moves) to your jaw or arm Sudden, severe shortness of breath or difficulty breathing Thank you for allowing us to participate in your care. Total Time Total Time Spent Total Time Spent (In Minutes): <30
[2024-08-19] MEDS: INFLUENZA VACC TS2024-25(65y+)/PF (IIV3) 0.5mL Syr IM ONE (12:26)
== END 2024-08-19 14:21 | disposition home or self-care (01) | DRG 386 ==
LOC: ED 12:23 → SUATTDRO 16:09 → 2N 16:09